=== PATIENT | male | born 1945 | race Caucasian/White ===

== ENCOUNTER 2016-08-22 10:39 | Emergency (ER) | payer OTHER ==
[~2016-08-22] VITALS: Ht 172.7 cm; Wt 71.4 kg
[~2016-08-22 10:39] MED LIST: ASPEC81 PO; ATOR-26 PO; CICL160A PO; CLR10 PO; CMD5 PO; CRDCD120 PO; FLNIN; IMD/2 PO; LVQ500 PO; OXGN; SALI0.6510; SYN75 PO; TRN400 PO; VNTHFA/IN INH; ZNTT/150 PO
[2016-08-22 10:46] VITALS: TEMP 36.5; Ht 172.7 cm; Wt 71.4 kg
[2016-08-22 10:49] VITALS: O2SAT 96
[2016-08-22] MEDS ORDERED: SODIUM CHLORIDE 0.9% 500ML 500 ML IV STA ×2 (10:50→13:13)
--- NOTE | 2016-08-22 11:32 | DIAGNOSTIC IMAGING REPORT ---
SINGLE VIEW CHEST CLINICAL HISTORY: Generalized weakness. FINDINGS: 2 AP, portable, upright chest radiographs are compared to chest x-ray dated 07/28/2016 and correlated with chest CT dated 10/18/2010. A catheter fragment projects over the left subclavian vein. This is unchanged from 2010. The heart is enlarged and there is atherosclerotic calcification of the thoracic aorta. The pulmonary vasculature is noncongested. Enlargement the central pulmonary arteries suggests pulmonary artery hypertension. Emphysema and chronic interstitial thickening are similar to previous. An accessory azygous fissure is incidentally noted. No airspace consolidation or large pleural effusion is identified. No pneumothorax is seen. The skeletal structures are osteopenic. The bony thorax is grossly intact. IMPRESSION: 1. Cardiomegaly and emphysema. There is no radiographic evidence of congestive failure. 2. There is no airspace consolidation typical for pneumonia. 3. A catheter fragment projects over the left subclavian vein. This is unchanged from 2010. Clinical correlation will be required. Electronically signed by: Fidel Stevens M.D. 08/22/2016 11:30 AM Dictated Date/Time: 08/22/2016 11:27 AM
[2016-08-22 11:48] LABS: BASO % 0.1 %; BASO ABS # 0.01 K/uL (0-0.2); COMPLETE YES; EOS % 0.1 %; HEMATOCRIT 39.8 % (42-52); IG% 0.6 %; LYMPH % 4.6 %; MEAN CELL VOLUME 90.7 fL (80-100); MEAN CORPUSCULAR HEMOGLOBIN 30.1 pg (25-34); MEAN CORPUSCULAR HGB CONC 33.2 g/dl (32-36); MEAN PLATELET VOLUME 10.1 fL (7.4-10.4); MONO % 6.1 %; NEUT % 88.5 %; PLATELET COUNT 308 K/uL (130-400); RED BLOOD COUNT 4.39 M/uL (4.7-6.1); WHITE BLOOD COUNT 10.94 K/uL (4.8-10.8)
[2016-08-22 11:51] LABS: ALT/SGPT 66 U/L (12-78); BLOOD UREA NITROGEN 14 mg/dl (7-18); BUN/CREATININE RATIO 15.4 (10-20); CALCIUM 8.4 mg/dl (8.5-10.1); CARBON DIOXIDE 29 mmol/L (21-32); CHLORIDE 103 mmol/L (98-107); CREATININE 0.93 mg/dl (0.60-1.40); GLUCOSE 212 mg/dl (70-99); POTASSIUM 3.9 mmol/L (3.5-5.1); SODIUM 140 mmol/L (136-145)
--- NOTE | 2016-08-22 11:51 | DIAGNOSTIC IMAGING REPORT ---
CT SCAN OF THE BRAIN WITHOUT IV CONTRAST CLINICAL HISTORY: Generalized weakness. COMPARISON STUDY: No priors. TECHNIQUE: Unenhanced axial CT scan of the brain is performed from the vertex to the skull base. Automated dose control exposure was utilized. CT DOSE: 537.48 mGy.cm FINDINGS: Brain parenchyma: There is minimal subcortical and periventricular microangiopathic disease. The brain parenchyma is otherwise normal in appearance. There is no hemorrhage, mass effect, or evidence of acute territorial ischemia by CT criteria. Arellano-white matter is preserved. No extra-axial fluid collection is seen. Ventricles, sulci, cisterns: Normal in configuration. Intracranial vasculature: There is atherosclerotic calcification of the cavernous carotid arteries. Calvarium: Unremarkable. Sinuses and mastoids: The visualized paranasal sinuses are clear. The mastoid air cells are well pneumatized. Orbits: The bony orbits are grossly intact. IMPRESSION: There is no hemorrhage, mass effect, or evidence of acute territorial ischemia by CT criteria. Electronically signed by: Fidel Stevens M.D. 08/22/2016 11:49 AM Dictated Date/Time: 08/22/2016 11:47 AM
[2016-08-22 11:54] LABS: ALKALINE PHOSPHATASE 139 U/L (45-117); AST/SGOT 20 U/L (15-37)
[2016-08-22] MEDS ORDERED: SALI0.657 NAE (11:56)
[2016-08-22] MEDS ORDERED: AMOX1TAB42 PO (11:56)
[2016-08-22] MEDS ORDERED: WARF5TAB7 PO (11:56)
[2016-08-22] MEDS ORDERED: ONDA4TAB46 PO (11:56)
[2016-08-22] MEDS ORDERED: PRED20TA PO (11:56)
[2016-08-22] MEDS ORDERED: ACLI1AER3 INH (11:56)
[2016-08-22] MEDS ORDERED: CLOP1TAB15 PO (11:56)
[2016-08-22] MEDS ORDERED: DILT120C68 PO ×2 (11:56)
[2016-08-22 12:28] LABS: URINE APPEARANCE CLOUDY (CLEAR); URINE BILIRUBIN NEG (NEG); URINE COLOR YELLOW; URINE EPITHELIAL CELL AUTO 20-30 /lpf (0-5); URINE NITRITE NEG (NEG); URINE PH 7.5 (4.5-7.5); URINE SPECIFIC GRAVITY 1.011 (1.000-1.030); UROBILINOGEN NEG (NEG)
[2016-08-22 12:49] LABS: MANUAL MICROSCOPIC REQUIRED? NO; REVIEW REQ? YES
[2016-08-22 13:03] LABS: URINE MUCUS PRESENT (NONE PRSENT); URINE PATH CASTS 0-3 GRANULAR CASTS /lpf (0)
[2016-08-22 15:12] VITALS: BP 105/65; PULSE 72; O2SAT 99
--- NOTE | 2016-08-22 16:50 | EMERGENCY ROOM VISIT NOTE ---
History Report prepared by Johnny: Hannah Mendoza Under the Supervision of: Dr. Alexander Dumont D.O. 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 The patient came to the ED via ambulance from the correction and was given 250 ml of fluid en route. EMS was called due to a suspected cardiac arrest. The nurses in the correction noticed that the patient was bradycardic and hypotensive. Per EMS, the patient did not have any complaints upon their arrival. EMS also reports that the patient has chronic COPD. The patient wears 2 L of nasal cannula oxygen while at the correction and he states that he uses it about 85% of the time. The patient states that he felt lightheaded this morning when he was up and walking around. He states that this is not the first time that he has experienced lightheadedness and that the lightheadedness typically occurs whenever he is not using his nasal cannula oxygen. The patient adds that his blood pressure has been fluctuating over the past week, but has never been as low as it was today. He is also experiencing a productive cough that started 1.5 weeks ago. He denies chest pain, shortness of breath, and any lightheadedness currently. He also denies diarrhea. The patient is on Coumadin for atrial fibrillation. He is unsure of if any of his medications have changed recently and according to records sent over from the correction he is on 120 mg of Cardizem. 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 A total of 10 systems reviewed and were otherwise negative. Past Medical & Surgical Medical Problems: (1) Asthma (2) Atrial flutter with rapid ventricular response (3) HTN (hypertension) Family History No pertinent family history Social History Smoking Status: Current Every Day Smoker Drug Use: none Marital Status: single Housing Status: other Occupation Status: other Current/Historical Medications Scheduled Aclidinium [place] (Tudorza Pressair), 1 PUFF INH BID Amoxicillin & Pot Clavulanate (Amoxicillin/Clavulanate P), 1 TAB PO BID Atorvastatin (Lipitor), 80 MG PO DAILY Ciclesonide (Alvesco), 1 PUFF PO BID Clopidogrel (Plavix), 75 MG PO DAILY Diltiazem Hcl Ext Rel (Tiazac), 120 MG PO DAILY Diltiazem Hcl Ext Rel (Tiazac), 120 MG PO BID Levothyroxine Sodium (Synthroid), 225 MCG PO DAILYBB Loperamide Hcl (Imodium), 2 MG PO BID Loratadine (Claritin), 10 MG PO DAILY Ondansetron Hcl (Zofran), 4 MG PO QID Pentoxifylline (Pentoxifylline ER), 400 MG PO TID Prednisone (Prednisone), 20 MG PO DAILY Saline (Parker), 1 SPRY GAETANO QID Warfarin Sod (Jantoven), 5 MG PO HS Scheduled PRN Albuterol Hfa (Ventolin Hfa), 2 PUFFS INH for UNDECIDED Ranitidine (Zantac), 150 MG PO BID PRN for UNDECIDED Allergies Coded Allergies: Aspirin (Verified Allergy, Unknown, 07/28/16) Procaine (Verified Allergy, Unknown, 07/28/16) Rosuvastatin (Verified Allergy, Unknown, UNKNOWN, 07/28/16) Physical Exam Vital Signs Date Time Temp Pulse Resp B/P Pulse Ox O2 Delivery O2 Flow Rate FiO2 08/22/16 15:12 72 18 105/65 99 08/22/16 14:20 97 18 112/63 95 Nasal Cannula 2.0 08/22/16 13:01 71 18 96/54 99 Nasal Cannula 2.0 08/22/16 11:44 78 18 96/54 99 Nasal Cannula 2.0 08/22/16 11:41 73 18 87/53 98 Nasal Cannula 2.0 08/22/16 11:40 79 18 105/60 99 Nasal Cannula 2.0 08/22/16 11:11 74 08/22/16 10:49 96 Nasal Cannula 2.0 08/22/16 10:46 36.5 81 20 107/54 96 Nasal Cannula 2.0 08/22/16 10:39 96 Nasal Cannula 2.0 Physical Exam GENERAL: alert, sitting up in bed, well appearing, well nourished, no distress, non-toxic EYE EXAM: normal conjunctiva, PERRL and EOM's intact OROPHARYNX: no exudate, no erythema, lips, buccal mucosa, and tongue normal and mucous membranes are moist NECK: supple, no nuchal rigidity, no adenopathy, non-tender LUNGS: Clear to auscultation. Normal chest wall mechanics HEART: no murmurs, S1 normal and S2 normal ABDOMEN: abdomen soft, non-tender, normo-active bowel sounds, no masses, no rebound or guarding. BACK: Back is symmetrical on inspection and there is no deformity, no midline tenderness, no CVA tenderness. SKIN: no rashes and no bruising UPPER EXTREMITIES: upper extremities are grossly normal. LOWER EXTREMITIES: No pitting edema. NEURO EXAM: Normal sensorium, cranial nerves II-XII intact, normal speech, no weakness of arms, no weakness of legs. No drift. Finger to nose intact. Gross sensation intact. Medical Decision & Procedures ER Provider Diagnostic Interpretation: Xray results per the radiologist and my interpretation. Other results have been interpreted by the radiologist and reviewed by me. SINGLE VIEW CHEST IMPRESSION: 1. Cardiomegaly and emphysema. There is no radiographic evidence of congestive failure. 2. There is no airspace consolidation typical for pneumonia. 3. A catheter fragment projects over the left subclavian vein. This is unchanged from 2010. Clinical correlation will be required. Electronically signed by: Fidel Stevens M.D. 08/22/2016 11:30 AM Dictated Date/Time: 08/22/2016 11:[address] SCAN OF THE BRAIN WITHOUT IV CONTRAST IMPRESSION: There is no hemorrhage, mass effect, or evidence of acute territorial ischemia by CT criteria. Electronically signed by: Fidel Stevens M.D. 08/22/2016 11:49 AM Dictated Date/Time: 08/22/2016 11:47 AM Laboratory Results 08/22/16 11:00 Red Blood Count 4.39, Mean Corpuscular Volume 90.7, Mean Corpuscular Hemoglobin 30.1, Mean Corpuscular Hemoglobin Concent 33.2, Mean Platelet Volume 10.1, Neutrophils (%) (Auto) 88.5, Lymphocytes (%) (Auto) 4.6, Monocytes (%) (Auto) 6.1, Eosinophils (%) (Auto) 0.1, Basophils (%) (Auto) 0.1, Neutrophils # (Auto) 9.68, Lymphocytes # (Auto) 0.50, Monocytes # (Auto) 0.67, Eosinophils # (Auto) 0.01, Basophils # (Auto) 0.01 08/22/16 11:00 Test 08/22/16 11:00 08/22/16 12:00 White Blood Count 10.94 K/uL (4.8-10.8) Red Blood Count 4.39 M/uL (4.7-6.1) Hemoglobin 13.2 g/dL (14.0-18.0) Hematocrit 39.8 % (42-52) Mean Corpuscular Volume 90.7 fL (80-100) Mean Corpuscular Hemoglobin 30.1 pg (25-34) Mean Corpuscular Hemoglobin Concent 33.2 g/dl (32-36) Platelet Count 308 K/uL (130-400) Mean Platelet Volume 10.1 fL (7.4-10.4) Neutrophils (%) (Auto) 88.5 % Lymphocytes (%) (Auto) 4.6 % Monocytes (%) (Auto) 6.1 % Eosinophils (%) (Auto) 0.1 % Basophils (%) (Auto) 0.1 % Neutrophils # (Auto) 9.68 K/uL (1.4-6.5) Lymphocytes # (Auto) 0.50 K/uL (1.2-3.4) Monocytes # (Auto) 0.67 K/uL (0.11-0.59) Eosinophils # (Auto) 0.01 K/uL (0-0.5) Basophils # (Auto) 0.01 K/uL (0-0.2) RDW Standard Deviation 48.7 fL (36.4-46.3) RDW Coefficient of Variation 14.5 % (11.5-14.5) Immature Granulocyte % (Auto) 0.6 % Immature Granulocyte # (Auto) 0.07 K/uL (0.00-0.02) Anion Gap 8.0 mmol/L (3-11) Est Creatinine Clear Calc Drug Dose 73.5 ml/min Estimated GFR () 97.4 Estimated GFR (Non- 84.1 BUN/Creatinine Ratio 15.4 (10-20) Bedside Glucose 211 mg/dl (70-99) Calcium Level 8.4 mg/dl (8.5-10.1) Total Bilirubin 0.3 mg/dl (0.2-1) Direct Bilirubin < 0.1 mg/dl (0-0.2) Aspartate Amino Transf (AST/SGOT) 20 U/L (15-37) Alanine Aminotransferase (ALT/SGPT) 66 U/L (12-78) Alkaline Phosphatase 139 U/L (45-117) Troponin I < 0.015 ng/ml (0-0.045) Total Protein 5.7 gm/dl (6.4-8.2) Albumin 2.5 gm/dl (3.4-5.0) Urine Color YELLOW Urine Appearance CLOUDY (CLEAR) Urine pH 7.5 (4.5-7.5) Urine Specific [place] 1.011 (1.000-1.030) Urine Protein NEG (NEG) Urine Glucose (UA) 2+ (NEG) Urine Ketones NEG (NEG) Urine Occult Blood NEG (NEG) Urine Nitrite NEG (NEG) Urine Bilirubin NEG (NEG) Urine Urobilinogen NEG (NEG) Urine Leukocyte Esterase NEG (NEG) Urine WBC (Auto) 1-5 /hpf (0-5) Urine RBC (Auto) 0-4 /hpf (0-4) Urine Hyaline Casts (Auto) 5-10 /lpf (0-5) Urine Epithelial Cells (Auto) 20-30 /lpf (0-5) Urine Bacteria (Auto) NEG (NEG) Urine Crystals AMORPHOUS SEDIMENT (NONE Urine Pathogenic Casts 0-3 GRANULAR CASTS /lpf (0) Urine Mucus PRESENT (NONE PRSENT) Laboratory results per my review. Medications Administered Medications (Trade) Dose Ordered Sig/Malcolm Route Start Time Stop Time Status Last Admin Dose Admin Sodium Chloride 500 ml @ 999 mls/hr Q31M STAT IV 08/22/16 10:50 08/22/16 11:20 DC 08/22/16 10:50 999 MLS/HR Sodium Chloride (Nss 500ml) 500 ml @ 999 mls/hr Q31M STAT IV 08/22/16 13:13 08/22/16 13:43 DC 08/22/16 13:13 999 MLS/HR ECG Indication: SOB/dyspnea Rate (beats per minute): 78 Rhythm: sinus with SA Findings: Q waves (Septal), ST elevation (slight in lead II), other (normal axis) Comparison ECG Date: 07/30/2016 Change: Atrial flutter has resolved EKG from correction earlier today showed a sinus rhythm. ED Course ED COURSE: Vital signs were reviewed and showed normal. The patients medical record was reviewed The above diagnostic studies were performed and reviewed. ED treatments and interventions as stated above. 1039: The patient was evaluated in room C6. A complete history and physical examination was performed. 1050: Ordered Sodium Chloride 500 ml @ 999 mls/hr IV 1108: I reassessed the patient and let him know that we are waiting on his test results yet. 1313: Ordered Sodium Chloride 500 ml @ 999 mls/hr IV 1413: I reassessed and updated the patient. 1433: I discussed the patient's case with the medical staff from [facility]. They said that they sent the patient over for hypotension and that his blood pressure is typically in the 90s. 1436: Upon reevaluation, the patient is doing well. I discussed my findings with the patient and he understands and agrees with the treatment plan. Based on the patients age, coexisting illnesses, exam and lab findings the decision to treat as an outpatient was made. The patient remained stable while under my care. The patient appeared well at the time of discharge. Medical Decision Differential diagnosis includes etiologies such as benign positional vertigo, dehydration, hypovolemia, anemia, tumor, infection, hypoglycemia, electrolyte abnormalities, cardiac sources, intracerebral event, toxicologic, neurologic, as well as others were entertained. Patient is a 70-year-old male prisoner who presents the ER for lightheadedness. He notes they normally gets this in the morning when his blood pressure slightly on the low side. Notes his blood pressures in the morning or normally systolically in the 90s. He was ambulate without his oxygen although is supposed to use it all the time. He normally wears 2 L nasal cannula. He notes that when he doesn't wear the oxygen he does become a little lightheaded and feels exactly the same way as he did this morning. Nursing staff took his blood pressure at this time and was systolically 30s over 20s per nursing staff. He was also in A. fib. Heart rate at that time was in the 50s. Upon review of his EKG performed at that time it was a normal sinus rhythm. There is no signs of A. fib. Heart rate was in the 50s. I do find it hard to believe that she could obtain a systolic pressure of 30 over a diastolic of 20. I do not believe that this is a real pressure. Pressures here were systolically 90s to 120s. He is completely a symptomatically. No sniffing anemia or leukocytosis. BMP along with LFTs, bilirubin and troponin are unremarkable. UA was negative. CT head was negative. Chest x-ray was unremarkable. EKG was nondiagnostic and since he is having no chest pain or shortness of breath and do not believe that this is the cause of the symptoms. Patient was updated bedside. I recommended holding Cardizem and or decreasing the dosing. I discussed this with the nurse on the unit. Patient was discharged follow-up with correction doctor as he is completely a symptomatically. Discussed with Pt concerning signs and symptoms to watch out for. Pt was instructed to follow up with their PCP and discussed with the patient their option to return to the ED at anytime for persistent or worsening symptoms. The appropriate anticipatory guidance and out-patient management, including indications for return to the emergency department, were explained at length to the patient and understood. Consults Time Called: 1425 Consulting Physician: [facility] medical staff Returned Call: 1433 I discussed the patient's case with the medical staff from [facility]. They said that they sent the patient over for hypotension and that his blood pressure is typically in the 90s. Impression Primary Impression: Dizzy Additional Impression: Hypotension Scribe Attestation The scribe's documentation has been prepared under my direction and personally reviewed by me in its entirety. I confirm that the note above accurately reflects all work, treatment, procedures, and medical decision making performed by me. Departure Information Dispostion Home / Self-Care (Fdc) Referrals Frances DOHERTY (PCP) Forms HOME CARE DOCUMENTATION FORM, IMPORTANT VISIT INFORMATION, WORK / SCHOOL INSTRUCTIONS Patient Instructions My [facility] Additional Instructions Please follow up with your primary care doctor with in the next 24 hours. Any worsening of your symptoms, please return to the ED immediately. This includes passing out, chest pain, shortness of breath, or any other concerning signs or symptoms from your stand point. Please talk to the physician electronics inspector at the correction as she will likely benefit from decreasing your Cardizem dosing. Problem Qualifiers Additional Impression: Hypotension Hypotension type: unspecified hypotension type Qualified Codes: I95.9 - Hypotension, unspecified
[2016-09-05] MEDS ORDERED: BTP80 PO (10:59)
[2016-10-18] MEDS ORDERED: GUAI1TAB27 PO (03:36)
[2016-11-27] MEDS ORDERED: ENOX60IN SQ (08:46)
[2016-12-06] MEDS ORDERED: BND25 PO (03:05)
[2016-12-16] MEDS ORDERED: LORA-741 PO (09:33)
[2016-12-16] MEDS ORDERED: SCOP1DIS14 TD (09:33)
[2016-12-16] MEDS ORDERED: RXNS10 PO (09:33)
== END 2016-08-22 15:13 | disposition home or self-care (01) ==
LOC: EDBD 10:39 → C.ED 10:41 → C.EDC 15:13
DX: I95.9 Hypotension, unspecified (principal); F17.200 Nicotine dependence, unspecified, uncomplicated; J45.909 Unspecified asthma, uncomplicated; I10 Essential (primary) hypertension

== ENCOUNTER 2016-09-03 09:07 | Inpatient (IN) | payer OTHER ==
[~2016-09-03] VITALS: Ht 172.7 cm; Wt 70.0 kg
[~2016-09-03 09:07] MED LIST changes: +ACLI1AER3 INH; +AMOX1TAB42 PO; -ASPEC81 PO; +CLOP1TAB15 PO; -CMD5 PO; -CRDCD120 PO; +DILT120C68 PO; -FLNIN; -LVQ500 PO; +ONDA4TAB46 PO; -OXGN; +PRED20TA PO; -SALI0.6510; +SALI0.657 NAE; +WARF5TAB7 PO
[2016-09-03] MEDS ORDERED: DILTIAZEM BOLUS / DRIP IV STA (09:26)
[2016-09-03] MEDS ORDERED: SODIUM CHLORIDE 0.9% 1000ML 1,000 ML IV STA (09:26)
--- NOTE | 2016-09-03 09:30 | EMERGENCY ROOM VISIT NOTE ---
History Report prepared by Johnny: Jasno Kaur Under the Supervision of: Dr. Josefa Pleitez M.D. First contact with patient: 09:15 Stated Complaint: TACHYCARDIA History of Present Illness The patient is a 70 year old male who presents to the Emergency Room with complaints of an episode of tachycardia that occurred prior to arrival today. He is coming from the [facility] facility. Per the nursing staff, the patient has a history of atrial fibrillation. The patient was taking medications for the atrial fibrillation, but he had to stop taking the medications a few weeks ago due to his blood pressure being in the 80s and 90s. Per the patient, he began to feel lightheaded this morning. He says that the cool air made his lightheadedness better. Per the nursing staff, the patient's heart rate went down after being in the cool air. The patient denies any loss of consciousness. Source of History: patient, nursing staff Onset: Prior to arrival today Position: other (heart - tachycardia) Timing: other (episode) Modifying Factors (Relieving): other (cool air) Associated Symptoms: No LOC Note: Associated symptoms: Lightheaded prior to arrival today. Review of Systems See HPI for pertinent positives & negatives. A total of 10 systems reviewed and were otherwise negative. Past Medical & Surgical Medical Problems: (1) Afib (2) Anticoagulation goal of INR 2 to 3 (3) Atrial flutter with rapid ventricular response (4) COPD (chronic obstructive pulmonary disease) (5) Hypothyroidism (6) PVD (peripheral vascular disease) Family History No pertinent family history Social History Smoking Status: Current Every Day Smoker Drug Use: none Marital Status: single Housing Status: other Occupation Status: other Current/Historical Medications Scheduled Aclidinium Calvin (Tudorza Pressair), 1 PUFF INH BID Ciclesonide (Alvesco), 1 PUFF PO BID Clopidogrel (Plavix), 75 MG PO DAILY Diltiazem Hcl Coated Beads (Cardizem Cd), 1 CAP PO BID Levothyroxine Sodium (Synthroid), 225 MCG PO DAILYBB Loperamide Hcl (Imodium), 2 MG PO BID Loratadine (Claritin), 10 MG PO DAILY Nortriptyline (Pamelor), 10 MG PO HS Oxygen (Oxygen), 2 LITERS NA PRN Pentoxifylline (Pentoxifylline ER), 400 MG PO TID Warfarin Sodium (Coumadin), 6 MG PO HS Scheduled PRN Albuterol Hfa (Ventolin Hfa), 2 PUFFS INH for UNDECIDED Ranitidine (Zantac), 150 MG PO BID PRN for UNDECIDED Allergies Coded Allergies: Aspirin (Verified Allergy, Unknown, 09/03/16) Procaine (Verified Allergy, Unknown, 09/03/16) Rosuvastatin (Verified Allergy, Unknown, UNKNOWN, 09/03/16) Physical Exam Vital Signs Date Time Temp Pulse Resp B/P Pulse Ox O2 Delivery O2 Flow Rate FiO2 09/03/16 10:45 155 20 101/69 97 Nasal Cannula 2.0 09/03/16 10:14 159 29 96/65 98 Nasal Cannula 2.0 09/03/16 09:57 157 28 89/76 97 Nasal Cannula 2.0 09/03/16 09:30 36.5 155 16 85/63 97 Room Air 09/03/16 09:24 155 09/03/16 09:16 170 Physical Exam CONSTITUTIONAL: Mild distress. HEENT: No icterus, moist mucous membranes NECK: No meningismus, trachea is midline. CARDIOVASCULAR: Irregular tachycardic rate. RESPIRATORY: Unlabored breathing. Clear to auscultation. GASTROINTESTINAL: Non-tender GENITOURINARY: No flank tenderness MUSCULOSKELETAL: Full range of motion RECTAL: No blood noticed, no stool in rectum. Heme negative. NEUROLOGIC: No acute gross focal deficits. PSYCHIATRIC: Normal affect SKIN: Normal for ethnicity. Medical Decision & Procedures ER Provider Diagnostic Interpretation: X-ray results as stated below per interpretation by me and the radiologist. CHEST ONE VIEW PORTABLE CLINICAL HISTORY: Atrial fibrillation with rapid response. Tachycardia. COMPARISON STUDY: 08/22/2016 FINDINGS: The cardiac and mediastinal contours remain stable. A left subclavian central venous catheter fragment remains unchanged in position. There is an azygos fissure. There is radiographic evidence of emphysema. There is mild elevation of the interstitium, finding which is felt to be chronic. There is no lobar consolidation. There are no significant pleural effusions. IMPRESSION: 1. Stable mild chronic interstitial thickening 2. No evidence of acute parenchymal consolidation Electronically signed by: Aramis Lassiter M.D. 09/03/2016 9:49 AM Dictated Date/Time: 09/03/2016 9:46 AM Laboratory Results 09/03/16 09:25 Red Blood Count 4.60, Mean Corpuscular Volume 88.7, Mean Corpuscular Hemoglobin 29.3, Mean Corpuscular Hemoglobin Concent 33.1, Mean Platelet Volume 10.0, Neutrophils (%) (Auto) 85.6, Lymphocytes (%) (Auto) 7.0, Monocytes (%) (Auto) 6.6, Eosinophils (%) (Auto) 0.2, Basophils (%) (Auto) 0.1, Neutrophils # (Auto) 12.68, Lymphocytes # (Auto) 1.03, Monocytes # (Auto) 0.97, Eosinophils # (Auto) 0.03, Basophils # (Auto) 0.01 09/03/16 09:25 Test 09/03/16 09:25 09/03/16 09:26 White Blood Count 14.79 K/uL (4.8-10.8) Red Blood Count 4.60 M/uL (4.7-6.1) Hemoglobin 13.5 g/dL (14.0-18.0) Hematocrit 40.8 % (42-52) Mean Corpuscular Volume 88.7 fL (80-100) Mean Corpuscular Hemoglobin 29.3 pg (25-34) Mean Corpuscular Hemoglobin Concent 33.1 g/dl (32-36) Platelet Count 279 K/uL (130-400) Mean Platelet Volume 10.0 fL (7.4-10.4) Neutrophils (%) (Auto) 85.6 % Lymphocytes (%) (Auto) 7.0 % Monocytes (%) (Auto) 6.6 % Eosinophils (%) (Auto) 0.2 % Basophils (%) (Auto) 0.1 % Neutrophils # (Auto) 12.68 K/uL (1.4-6.5) Lymphocytes # (Auto) 1.03 K/uL (1.2-3.4) Monocytes # (Auto) 0.97 K/uL (0.11-0.59) Eosinophils # (Auto) 0.03 K/uL (0-0.5) Basophils # (Auto) 0.01 K/uL (0-0.2) RDW Standard Deviation 47.9 fL (36.4-46.3) RDW Coefficient of Variation 14.8 % (11.5-14.5) Immature Granulocyte % (Auto) 0.5 % Immature Granulocyte # (Auto) 0.07 K/uL (0.00-0.02) Prothrombin Time 29.6 SECONDS (9.0-12.0) Prothromb Time International Ratio 2.7 (0.9-1.1) Activated Partial Thromboplast Time 55.9 SECONDS (21.0-31.0) Partial Thromboplastin Ratio 2.2 Anion Gap 11.0 mmol/L (3-11) Est Creatinine Clear Calc Drug Dose 79.5 ml/min Estimated GFR () 103.3 Estimated GFR (Non- 89.1 BUN/Creatinine Ratio 17.2 (10-20) Calcium Level 8.9 mg/dl (8.5-10.1) Magnesium Level 2.1 mg/dl (1.8-2.4) Troponin I < 0.015 ng/ml (0-0.045) Procalcitonin < 0.05 ng/mL (0-0.5) Thyroid Stimulating Hormone (TSH) 6.530 uIu/ml (0.300-4.500) Free Thyroxine 1.66 ng/dl (0.80-1.60) Free Triiodothyronine 2.79 pg/ml (2.30-4.20) Labs reviewed by ED physician. Medications Administered Medications (Trade) Dose Ordered Sig/Malcolm Route Start Time Stop Time Status Last Admin Dose Admin Sodium Chloride 1,000 ml @ 0 mls/hr Q0M STAT IV 09/03/16 09:26 09/03/16 09:28 DC 09/03/16 09:52 999 MLS/HR Diltiazem HCl/ Dextrose (Cardizem Inj/D5 100ml) 125 ml @ 5 mls/hr Q24H PRN IV 09/03/16 09:45 09/03/16 11:56 DC 09/03/16 10:39 8 MLS/HR ECG Indication: tachycardia Rate (beats per minute): 150 Rhythm: other (irregular tachycardia) Findings: other (normal axis, nonspecific-ST findings) ED Course 0916: Past medical records reviewed. The patient was evaluated in room A2. A complete history and physical examination was performed. 0926: Ordered Cardizem Bolus/Drip 1 ea IV, NSS 1000 ml @ 0 mls/hr Wide Open IV. 0945: Ordered Diltiazem HCl 125 mg/Dextrose 125 ml @ 5 mls/hr Protocol IV PRN. 1039: I reevaluated the patient and he is resting comfortably. The patient verbally expressed understanding and agreement of the treatment plan. The patient will be evaluated for further treatment. 1047: I discussed the patient with Dia Sullivan - she will evaluate the patient for further treatment. Medical Decision Differential diagnoses include: rapid atrial fibrillation, GI bleed, myocardial infarction. 62 presented to the emergency Department from the [facility] facility for evaluation of tachycardia. He has a history of atrial fibrillation and has reportedly been in his otherwise normal state of health. However, his heart rate is roughly 150 bpm on arrival to the emergency department and he is hypotensive blood pressure 90/50. He does not appear in any distress, however. Rectal exam heme negative on Coumadin. Initially, normal saline bolus and Cardizem drip without bolus initiated. However, patient's heart rate failed to decrease despite titrating the Cardizem drip upward and blood pressure while initially increasing to a systolic of 100 eventually began to descend again to a systolic of roughly 85. Therefore, digoxin 0.5 mg IV ordered and admission arranged with hospital service. Patient otherwise appeared well throughout emergency room course and hemodynamically stable although tachycardic and mildly hypotensive. Consults Time Called: 1040 Consulting Physician: Dia Sullivan Returned Call: 1049 I discussed the patient with Dia Sullivan - she will evaluate the patient for further treatment. Impression Primary Impression: Rapid atrial fibrillation Critical Care Critical Care time 30 mins Scribe Attestation The scribe's documentation has been prepared under my direction and personally reviewed by me in its entirety. I confirm that the note above accurately reflects all work, treatment, procedures, and medical decision making performed by me. Departure Information Dispostion Being Evaluated By Hospitalist Frances Castaneda (PCP)
[2016-09-03] MEDS ORDERED: NORT10CA2 PO (09:46)
[2016-09-03] MEDS ORDERED: WARF6TAB PO (09:46)
[2016-09-03] MEDS ORDERED: DILT120C51 PO (09:46)
--- NOTE | 2016-09-03 09:51 | DIAGNOSTIC IMAGING REPORT ---
CHEST ONE VIEW PORTABLE CLINICAL HISTORY: Atrial fibrillation with rapid response. Tachycardia. COMPARISON STUDY: 08/22/2016 FINDINGS: The cardiac and mediastinal contours remain stable. A left subclavian central venous catheter fragment remains unchanged in position. There is an azygos fissure. There is radiographic evidence of emphysema. There is mild elevation of the interstitium, finding which is felt to be chronic. There is no lobar consolidation. There are no significant pleural effusions. IMPRESSION: 1. Stable mild chronic interstitial thickening 2. No evidence of acute parenchymal consolidation Electronically signed by: Aramis Lassiter M.D. 09/03/2016 9:49 AM Dictated Date/Time: 09/03/2016 9:46 AM
[2016-09-03] MEDS: DILTIAZEM HCL INJ 125 MG in DEXTROSE 5% 100ML IV PRN ×2 (09:53→10:39)
[2016-09-03 10:13] LABS: BASO % 0.1 %; BASO ABS # 0.01 K/uL (0-0.2); COMPLETE YES; EOS % 0.2 %; HEMATOCRIT 40.8 % (42-52); IG% 0.5 %; LYMPH ABS # 1.03 K/uL (1.2-3.4); MEAN CELL VOLUME 88.7 fL (80-100); MEAN CORPUSCULAR HEMOGLOBIN 29.3 pg (25-34); MEAN CORPUSCULAR HGB CONC 33.1 g/dl (32-36); MONO % 6.6 %; NEUT % 85.6 %; PLATELET COUNT 279 K/uL (130-400); WHITE BLOOD COUNT 14.79 K/uL (4.8-10.8)
[2016-09-03 10:20] LABS: BLOOD UREA NITROGEN 15 mg/dl (7-18); BUN/CREATININE RATIO 17.2 (10-20); CALCIUM 8.9 mg/dl (8.5-10.1); CARBON DIOXIDE 23 mmol/L (21-32); CHLORIDE 102 mmol/L (98-107); CREATININE 0.86 mg/dl (0.60-1.40); GLUCOSE 159 mg/dl (70-99); POTASSIUM 3.9 mmol/L (3.5-5.1); SODIUM 136 mmol/L (136-145)
[2016-09-03 10:35] LABS: INR 2.7 (0.9-1.1); PARTIAL THROMBOPLASTIN RATIO 2.2; PROTHROMBIN TIME (PATIENT) 29.6 SECONDS (9.0-12.0)
[2016-09-03 11:35] VITALS: Ht 172.7 cm; Wt 70.0 kg
[2016-09-03] MEDS ORDERED: NITROGLYCERIN 0.4 MG SL PER TAB CHARGE SL PRN (11:45)
[2016-09-03] MEDS ORDERED: SODIUM CHLORIDE 0.9% 1000ML 1,000 ML IV SCH (11:45)
[2016-09-03] MEDS ORDERED: ACETAMINOPHEN 325 MG TAB PO PRN (11:45)
[2016-09-03] MEDS ORDERED: DIGOXIN 0.125 MG TAB PO ONE (11:45)
[2016-09-03] MEDS ORDERED: DIGOXIN IV 250 MCG in SYRINGE 9 ML IV ONE (11:45)
[2016-09-03] MEDS ORDERED: ONDANSETRON INJ 2 MG/ML 2 ML VIAL IV PRN (11:45)
[2016-09-03] MEDS ORDERED: DILTIAZEM BOLUS / DRIP IV PRN (11:45)
[2016-09-03] MEDS ORDERED: DIGOXIN INJ 500 MCG/2 ML AMP IV ONE (12:00)
--- NOTE | 2016-09-03 12:03 | History and Physical ---
History & Physical Date & Time of Service: Sep 03, 2016 at 11:44 Chief Complaint: Tachycardia Primary Care Physician: Frances DOHERTY History of Present Illness Source: patient, hospital records, other (intermediate records ) Patient seen and examined. 70 year old male with PMHx of Afib on Coumadin, COPD , hypothyroidism, PAD, and HLD presents to the ED from [facility] with tachycardia. Patient reports he feels relatively well. Patient has been having low BP the last several days and his Cardizem has been held. This morning the nurse at intermediate took his vital signs and his HR was in the 150s. BP was systolically in the high 80s. Patient reports he feels lightheaded occasionally but otherwise denies any other issues. He denies fevers, chills, URI symptoms, chest pain, SOB , palpitations, nausea, vomiting, diarrhea, dysuria, calf pain and edema. He reports chronic oxygen use. He states the intermediate takes care of his medications. Patient was admitted in July for new onset Afib/flutter and converted to NSR prior to discharge. In the ED patient is tachycardic to the 150s. BP is in the 90s systolically. HR is in the 150s and is aflutter/fib. TSH is high, as is WBC count is 14K, INR is 2.7. Patient received IVFs and a Cardizem drip is started. He will be admitted for further workup and treatment. Past Medical/Surgical History Medical Problems: (1) Afib Status: Chronic (2) Anticoagulation goal of INR 2 to 3 Status: Chronic (3) Atrial flutter with rapid ventricular response Permanent Comment: now in Normal sinus rhythms Status: Resolved (4) COPD (chronic obstructive pulmonary disease) Status: Chronic (5) Hypothyroidism Status: Chronic (6) PVD (peripheral vascular disease) Status: Chronic Family History No pertinent family history Social History Smoking Status: Former Smoker Alcohol Use: none Drug Use: none Marital Status: single Housing status: other (incarcerated ) Occupational Status: other Immunizations History of Influenza Vaccine: Yes History of Tetanus Vaccine?: Yes History of Pneumococcal: Yes History of Hepatitis B Vaccine: Yes Multi-Drug Resistant Organisms History of MDRO: No Allergies Coded Allergies: Aspirin (Verified Allergy, Unknown, 09/03/16) Procaine (Verified Allergy, Unknown, 09/03/16) Rosuvastatin (Verified Allergy, Unknown, UNKNOWN, 09/03/16) Home Medications Scheduled Aclidinium Justice (Tudorza Pressair), 1 PUFF INH BID Ciclesonide (Alvesco), 1 PUFF PO BID Clopidogrel (Plavix), 75 MG PO DAILY Diltiazem Hcl Coated Beads (Cardizem Cd), 1 CAP PO BID Levothyroxine Sodium (Synthroid), 225 MCG PO DAILYBB Loperamide Hcl (Imodium), 2 MG PO BID Loratadine (Claritin), 10 MG PO DAILY Nortriptyline (Pamelor), 10 MG PO HS Oxygen (Oxygen), 2 LITERS NA PRN Pentoxifylline (Pentoxifylline ER), 400 MG PO TID Warfarin Sodium (Coumadin), 6 MG PO HS Scheduled PRN Albuterol Hfa (Ventolin Hfa), 2 PUFFS INH for UNDECIDED Ranitidine (Zantac), 150 MG PO BID PRN for UNDECIDED Review of Systems See above for pertinent positives & negatives. A total of 10 systems reviewed and were otherwise negative. Physical Exam Vital Signs Date Time Temp Pulse Resp B/P Pulse Ox O2 Delivery O2 Flow Rate FiO2 09/03/16 10:14 159 29 96/65 98 Nasal Cannula 2.0 09/03/16 09:57 157 28 89/76 97 Nasal Cannula 2.0 09/03/16 09:30 36.5 155 16 85/63 97 Room Air 09/03/16 09:24 155 09/03/16 09:16 170 General Appearance: + pertinent finding (Pleasant Wd/WN 70 year old male lying in bed in NAD with guards at bedside ) Head: normocephalic, atraumatic Eyes: PERRL, EOMI, sclerae normal ENT: hearing grossly normal, pharynx normal Neck: supple, no JVD Respiratory/Chest: chest non-tender, lungs clear, normal breath sounds, no respiratory distress, no accessory muscle use Cardiovascular: no edema, no gallop, no JVD, no murmur, normal peripheral pulses, + irregularly irregular (rate 140s ) Abdomen/GI: normal bowel sounds, non tender, soft Back: normal inspection, no muscle spasm Extremities/Musculoskelatal: no calf tenderness, normal capillary refill, no pedal edema Neurologic/Psych: alert, oriented x 3, + pertinent finding (no motor or sensory deficits noted on gross exam ) Skin: normal color, warm/dry, no rash Lymphatic: no adenopathy Diagnostics Laboratory Results Results Past 24 Hours Test 09/03/16 09:25 09/03/16 09:26 09/03/16 11:35 Range/Units White Blood Count 14.79 4.8-10.8 K/uL Red Blood Count 4.60 4.7-6.1 M/uL Hemoglobin 13.5 14.0-18.0 g/dL Hematocrit 40.8 42-52 % Mean Corpuscular Volume 88.7 80-100 fL Mean Corpuscular Hemoglobin 29.3 25-34 pg Mean Corpuscular Hemoglobin Concent 33.1 32-36 g/dl Platelet Count 279 130-400 K/uL Mean Platelet Volume 10.0 7.4-10.4 fL Neutrophils (%) (Auto) 85.6 % Lymphocytes (%) (Auto) 7.0 % Monocytes (%) (Auto) 6.6 % Eosinophils (%) (Auto) 0.2 % Basophils (%) (Auto) 0.1 % Neutrophils # (Auto) 12.68 1.4-6.5 K/uL Lymphocytes # (Auto) 1.03 1.2-3.4 K/uL Monocytes # (Auto) 0.97 0.11-0.59 K/uL Eosinophils # (Auto) 0.03 0-0.5 K/uL Basophils # (Auto) 0.01 0-0.2 K/uL RDW Standard Deviation 47.9 36.4-46.3 fL RDW Coefficient of Variation 14.8 11.5-14.5 % Immature Granulocyte % (Auto) 0.5 % Immature Granulocyte # (Auto) 0.07 0.00-0.02 K/uL Prothrombin Time 29.6 9.0-12.0 SECONDS Prothromb Time International Ratio 2.7 0.9-1.1 Activated Partial Thromboplast Time 55.9 21.0-31.0 SECONDS Partial Thromboplastin Ratio 2.2 Sodium Level 136 136-145 mmol/L Potassium Level 3.9 3.5-5.1 mmol/L Chloride Level 102 98-107 mmol/L Carbon Dioxide Level 23 21-32 mmol/L Anion Gap 11.0 3-11 mmol/L Blood Urea Nitrogen 15 7-18 mg/dl Creatinine 0.86 0.60-1.40 mg/dl Est Creatinine Clear Calc Drug Dose 79.5 ml/min Estimated GFR () 103.3 Estimated GFR (Non- 89.1 BUN/Creatinine Ratio 17.2 10-20 Random Glucose 159 70-99 mg/dl Calcium Level 8.9 8.5-10.1 mg/dl Troponin I < 0.015 0-0.045 ng/ml Thyroid Stimulating Hormone (TSH) 6.530 0.300-4.500 uIu/ml Diagnostic Radiology CXR Per radiologist read: IMPRESSION: 1. Stable mild chronic interstitial thickening 2. No evidence of acute parenchymal consolidation EKG Atrial Flutter 152 BPM QTc 429 Impression Assessment and Plan 70 year old male presents to the ED from intermediate with tachycardia. Patient feels well. Cardizem has been held the last several days for hypotension RECURRENT PAROXYSMAL ATRIAL FIBRILLATION/FLUTTER -Admit to tele -Cardizem drip started for rate control -continue Warfarin, follow INR -hold Pentoxifylline for now - side effect of medication is arrhythmia -Serial Desi, EKGs -Had echo in July with preserved EF and mitral valve calcification -Cardiology consult for further recommendations input appreciated - saw [facility] cardiology last time -AHA diet -Mg, T3, T4 pending -CBC, PRP, Mg daily -rate still elevated Cardizem uptitrated HYPOTENSION -? cause -gentle IVF hydration -monitor in tele -cardiology consult placed LEUKOCYTOSIS -14K, no signs of infection. Afebrile -check blood cultures, UA, procalcitonin -no indication for Abx at this time -follow CBC daily COPD with chronic hypoxia -stable -continue home inhalers, oxygen PVD -continue Plavix -hold Pentoxifylline for now HYPOTHYROIDISM -TSH high -check T3, T4 -continue Synthroid DVT PROPHYLAXIS: Coumadin CODE STATUS: FULL CODE per intermediate documents DISPO:In my clinical judgment this beneficiary meets acute admission criteria, established by [facility], that includes being hospitalized through two midnights. Patient seen in collaboration with Dr. Hung ATTENDING ADDENDUM care coordinated with GREY Tolliver please refer to her notes for full details, I agree with her notes patient seen and examined, records reviewed by myself as well on exam, patient seen resting in bed, comfortable denies chest pain, dyspnea, palpitations, dizziness, nausea no other symptoms VS noted and reviewed oriented x 3 , not in distress, speaks in sentences with no effort nor accessory muscle use tachycardic, irregularly irregular rhythm, no murmurs clear breath sounds bilaterally non distended, soft, nontender no bipedal edema, erythema, warmth no neuro deficits WBC 14.7 Crea 0.86 ekg atrial flutter, hr 150S ASSESSMENT/PLAN> ATRIAL FLUTTER Cardizem drip discontinued in the ER as patient's systolic bp decreased to 80's Digoxin 250mcg IV and 0.25mg po given discussed with Dr. Crowe- Cardiology recommend Metoprolol 2.5-5mg IV, with IV fluids, monitor BP closely INR therapeutic HYPOTHYROIDISM TSH during last month's admission 20s; L thyroxine increased from 200 to 250mcg TSH today improved to 6, FreeT4 mildly elevated repeat Thyroid function test tomorrow other diagnoses and plan of care as per GREY Tolliver's notes Jg Hung MD VTE Prophylaxis VTE Risk Assessment Done? Y/N: Yes Risk Level: Moderate
[2016-09-03] MEDS ORDERED: OXGN (12:04)
[2016-09-03 12:08] LABS: MAGNESIUM 2.1 mg/dl (1.8-2.4)
[2016-09-03] MEDS ORDERED: SODIUM CHLORIDE 0.9% 500ML 500 ML IV SCH (12:15)
[2016-09-03] MEDS ORDERED: METOPROLOL TARTRATE 1 MG/ML VIAL IV STA (12:19)
[2016-09-03] MEDS ORDERED: METOPROLOL TARTRATE 1 MG/ML VIAL ONE (12:28)
[2016-09-03] MEDS ORDERED: METOPROLOL TARTRATE 1 MG/ML VIAL IV PRN (12:45)
[2016-09-03] MEDS ORDERED: METOPROLOL TARTRATE 1 MG/ML VIAL IV ONE (13:30)
[2016-09-03 13:39] VITALS: BP 85/65; PULSE 153; TEMP 36.3; O2SAT 93
[2016-09-03 14:38] VITALS: BP 99/74
[2016-09-03 15:06] VITALS: BP 93/69; PULSE 160; TEMP 36.8; O2SAT 95
[2016-09-03] MEDS: WARFARIN SOD 6 MG TAB PO SCH (16:00)
[2016-09-03 18:41] LABS: URINE APPEARANCE CLEAR (CLEAR); URINE BILIRUBIN NEG (NEG); URINE COLOR YELLOW; URINE NITRITE NEG (NEG); URINE SPECIFIC GRAVITY 1.007 (1.000-1.030); UROBILINOGEN NEG (NEG)
[2016-09-03 18:44] LABS: MANUAL MICROSCOPIC REQUIRED? NO; REVIEW REQ? NO
[2016-09-03] MEDS: SODIUM CHLORIDE 0.9% 1000ML 1,000 ML IV SCH ×2 (18:58→20:06)
[2016-09-03 19:23] VITALS: BP 91/46; PULSE 82; TEMP 36.5; O2SAT 94
[2016-09-03] MEDS: LOPERAMIDE HCL 2 MG CAP PO SCH (20:10)
[2016-09-03] MEDS: RANITIDINE HCL 150 MG TAB PO SCH (20:10)
[2016-09-03] MEDS: NORTRIPTYLINE HCL 10 MG CAP PO SCH (20:11)
[2016-09-03 20:13] VITALS: BP 106/62
[2016-09-03] MEDS: SOTALOL HCL 80 MG TAB PO SCH (20:46)
[2016-09-03] MEDS: ACETAMINOPHEN 325 MG TAB PO PRN (20:48)
[2016-09-03 22:24] LABS: CKMB/CK RATIO 4.2 (0-3.0)
[2016-09-03 23:04] VITALS: BP 119/59; PULSE 79; TEMP 37.1; O2SAT 93
--- NOTE | 2016-09-04 02:19 | CARDIOLOGY CONSULTATION ---
DATE OF CONSULTATION: 09/03/2016 REFERRING PHYSICIAN: Dr. Hung. REASON FOR CONSULTATION: Atrial flutter. HISTORY OF PRESENT ILLNESS: Mr. Crook is a 70-year-old prisoner at [facility] with a history of hypertension, asthma, peripheral artery disease and hypothyroidism as well as atrial flutter for which he was previously hospitalized approximately 1 month ago who returned again to the hospital in the setting of atrial flutter with RVR. The patient was most recently admitted at the end of July, at which time he presented to the ED with heart rates in the 160s. He was treated with IV diltiazem before converting to sinus rhythm. He underwent an echocardiogram which showed normal biventricular function with a fixed mass on his anterior mitral valve leaflet, for which he underwent a ILENE and was thought only to have a mass which was thought to be a calcified nodule less likely but vegetation. He was discharged on diltiazem b.i.d. which he had been taking at the [facility]. He was also started on Coumadin with INRs, per report from [facility] medical unit of 1.9 and 1.8 most recently. The day prior to admission, the patient was having issues with relative hypotension and as a result diltiazem was held, the morning of admission, the patient presented relatively hypotensive with palpitations and heart rates noted to be in the 150s. As a result, he was transferred to the [facility] ED. In the ED, the patient was noted to have heart rates in the 150s-160s. He received IV metoprolol as well as IV digoxin and p.o. digoxin in the setting of relative hypotensive with blood pressures in the 80s and 90s. Despite this, he persisted in atrial flutter with RVR. He was admitted to telemetry and at time of interview, the patient was comfortable but tachycardic. He denied any chest pain, presyncope or other new symptoms. Denied any precipitating fevers, chills or infection symptoms. PAST MEDICAL HISTORY: 1. Atrial flutter with RVR. 2. Hypertension. 3. Asthma. 4. Hypothyroidism. 5. Peripheral artery disease. 6. Osteoarthritis. SOCIAL HISTORY: The patient says he quit smoking last month. He is currently incarcerated at [facility]. HOME MEDICATIONS: Include Tudorza Pressair, albuterol, Alvesco, clopidogrel 70, diltiazem 120 mg b.i.d., levothyroxine 225 mcg daily, Imodium, loratadine, nortriptyline, pentoxifylline, ranitidine and Coumadin. ALLERGIES: ALLERGIC TO: 1. ASPIRIN, ALTHOUGH WHICH HE SAID WAS A NOSEBLEED A KID, ALTHOUGH HAS PREVIOUSLY BEEN ABLE TO TAKE MORE RECENTLY. 2. PROCAINE. 3. ROSUVASTATIN. REVIEW OF SYSTEMS: Ten point review of systems completed and otherwise negative or listed in HPI. PHYSICAL EXAMINATION: VITAL SIGNS: Initially, temperature 36.8, pulse 160, blood pressure 93/69. He is satting 95% on 2 liters. GENERAL: The patient appears very comfortable in no acute distress. HEENT: Sclerae are anicteric. Oropharynx is clear. Mucous membranes are moist. NECK: Supple with no lymphadenopathy. LUNGS: Clear to auscultation bilaterally. CARDIAC: He is tachycardic, regular but with no appreciable murmurs, rubs or gallops. ABDOMEN: Soft, nontender and nondistended with positive bowel sounds. EXTREMITIES: Warm. SKIN: Shows no rashes or lesions. NEUROLOGIC: Cranial nerves II-XII are grossly intact. PSYCHIATRIC: He is alert and oriented x3. LABORATORY DATA: White blood cell count 14.8, hemoglobin 13.5, platelets 279. His INR is 2.2 today. Sodium 136, potassium 3.9, BUN 15, creatinine of 0.86. His TSH remains elevated at 6.5. His troponin has been negative x2. Magnesium of 2.1. IMAGING: Chest x-ray showed stable mild chronic interstitial thickening with no other acute cardiopulmonary process. EKG on admission showed atrial flutter with variable AV block with no significant ST abnormalities noted. IMPRESSION AND PLAN: 1. Atrial flutter with rapid ventricular rate. 2. Relative hypotension. 3. Peripheral artery disease. 4. Calcified mitral valve leaflet. The patient readmitted in the setting of atrial flutter with rapid ventricular rate. He has had relative hypotension which has limited the ability to use AV-cynthia agents. No clear precipitating causes, although does have leukocytosis on initial lab work. Going forward, will continue to attempt to rate control with digoxin load. In the setting of recurrent events with relative hypotension, I do feel that antiarrhythmics are warranted and will plan to start on sotalol 80 mg q. 12 hours. Will plan to check EKGs for QTC lengthening 4-5 hours after doses and will need to monitor for at least 3 doses in the hospital. If remains in atrial flutter overnight with rapid ventricular rate, will consider external cardioversion tomorrow. The patient's INRs have been largely therapeutic over the last month. Otherwise, he will continue on his prior Plavix and can stop prior diltiazem. Will continue to follow while in the hospital. Thank you for allowing us to participate in the care of this patient. Please contact with any questions. ANT
[2016-09-04] MEDS: SODIUM CHLORIDE 0.9% 1000ML 1,000 ML IV SCH ×3 (02:56→23:27)
[2016-09-04 04:17] VITALS: BP 102/48; PULSE 74; TEMP 36.8; O2SAT 96
[2016-09-04 06:06] LABS: HEMATOCRIT 37.6 % (42-52); MEAN CELL VOLUME 91.3 fL (80-100); MEAN CORPUSCULAR HEMOGLOBIN 29.1 pg (25-34); MEAN CORPUSCULAR HGB CONC 31.9 g/dl (32-36); MEAN PLATELET VOLUME 9.8 fL (7.4-10.4); PLATELET COUNT 240 K/uL (130-400); RED BLOOD COUNT 4.12 M/uL (4.7-6.1); WHITE BLOOD COUNT 10.58 K/uL (4.8-10.8)
[2016-09-04] MEDS: LEVOTHYROXINE 75 MCG TAB PO SCH (06:15)
[2016-09-04] MEDS: ACETAMINOPHEN 325 MG TAB PO PRN ×2 (06:16→20:48)
[2016-09-04 06:20] LABS: INR 2.8 (0.9-1.1); PROTHROMBIN TIME (PATIENT) 31.8 SECONDS (9.0-12.0)
[2016-09-04 06:42] LABS: BUN/CREATININE RATIO 20.3 (10-20); CALCIUM 8.6 mg/dl (8.5-10.1); CREATININE 0.63 mg/dl (0.60-1.40); MAGNESIUM 2.2 mg/dl (1.8-2.4); POTASSIUM 4.2 mmol/L (3.5-5.1)
[2016-09-04 06:54] LABS: THYROID STIMULATING HORMONE 3.21 uIu/ml (0.300-4.500)
[2016-09-04 07:42] VITALS: BP 108/53; PULSE 71; TEMP 37; O2SAT 95
[2016-09-04] MEDS: CLOPIDOGREL BISULFATE 75 MG TAB PO SCH (07:45)
[2016-09-04] MEDS: RANITIDINE HCL 150 MG TAB PO SCH ×2 (07:45→20:44)
[2016-09-04] MEDS: LOPERAMIDE HCL 2 MG CAP PO SCH ×2 (07:45→20:43)
[2016-09-04] MEDS: SOTALOL HCL 80 MG TAB PO SCH ×2 (07:45→20:44)
[2016-09-04] MEDS: LORATADINE 10 MG TAB PO SCH (07:45)
[2016-09-04 11:01] VITALS: BP 105/53; PULSE 20; PULSE 67; TEMP 36.8; O2SAT 93
--- NOTE | 2016-09-04 12:42 | Progress Note ---
Internal Med Progress Note Date of Service: Sep 04, 2016. Provider Documentation: SUBJECTIVE: Patient is seen and examined at bedside. He states diazines has resolved. Feels well currently. Denies any chest pain, SOB, palpitations, nausea, diaphoresis. OBJECTIVE: Vital Signs-as noted below Physical Exam: General Appearance:Moderately built and nourished, no apparent distress Head: normocephalic, Atraumatic Eyes: normal inspection, EOMI, PERRLA Neck: supple, no JVD, Trachea midline Respiratory/Chest: Normal breath sounds, CTA, No accessory muscle use Cardiovascular: S1, S2, NSR, No murmur Abdomen/GI:Soft, Non tender, Bowel sounds present Extremities/Musculoskelatal:normal inspection, no edema Neurologic/Psych:AAOX3, grossly no focal neurological deficits Skin: normal color, warm Lab data as noted below. ASSESSMENT & PLAN: RECURRENT PAROXYSMAL ATRIAL FIBRILLATION/FLUTTER Presented with dizziness and found to have Aflutter with RVR and relative hypotension Initially started on Cardizem; failed Digoxin and later switched to Sotalol INR therapeutic: Continue Coumadin Pentoxifylline discontinued as can cause arrhythmia Serial EKG to look for QTC prolongation Last ECHO in Jul 2016: Normal EF and mitral valve calcification Appreciate cardiology help Continue plavix Diltiazem discontinued HYPOTENSION Improving Currently asymptomatic Continue IVF LEUKOCYTOSIS No source of infection Resolved HYPOTHYROIDISM TSH:3.2 Continue Levothyroxine TSH during last month's admission 20s; L thyroxine increased from 200 to 250mcg at the time Needs repeat thyroid function testing as outpatient COPD with chronic hypoxia stable continue home inhalers, oxygen PVD continue Plavix Discontinue Pentoxifylline DVT PROPHYLAXIS: Coumadin CODE STATUS: FULL CODE DISPO: Plan to DC tomorrow if no complications and once cleared by cardiology Vital Signs: Date Time Temp Pulse Resp B/P Pulse Ox O2 Delivery O2 Flow Rate FiO2 09/04/16 11:01 36.8 67 20 105/53 93 2.0 09/04/16 08:00 Nasal Cannula 2.0 09/04/16 07:42 37.0 71 18 108/53 95 2.0 09/04/16 04:17 36.8 74 16 102/48 96 Nasal Cannula 2.0 09/04/16 04:00 Nasal Cannula 2.0 09/04/16 00:00 Nasal Cannula 2.0 09/03/16 23:04 37.1 79 18 119/59 93 Nasal Cannula 1.0 09/03/16 20:13 106/62 09/03/16 20:00 Nasal Cannula 09/03/16 19:23 36.5 82 16 91/46 94 Nasal Cannula 2.0 09/03/16 16:00 Nasal Cannula 09/03/16 15:06 36.8 160 20 93/69 95 Nasal Cannula 2.0 09/03/16 14:38 99/74 09/03/16 13:39 36.3 153 18 85/65 93 Nasal Cannula 2.0 09/03/16 13:30 82 91/46 09/03/16 13:10 141 20 91/64 97 09/03/16 13:05 141 20 91/64 97 Nasal Cannula 2.0 09/03/16 12:55 144 09/03/16 12:54 66 09/03/16 12:45 144 20 91/64 98 Nasal Cannula 2.0 09/03/16 12:31 152 22 95/67 Room Air Lab Results: Results Past 24 Hours Test 09/03/16 15:25 09/03/16 18:00 09/03/16 21:21 09/04/16 05:11 Range/Units Total Creatine Kinase 16 12 39-308 U/L Creatine Kinase MB < 0.5 0.5 0.5-3.6 ng/ml Creatine Kinase MB Ratio 4.2 0-3.0 Troponin I < 0.015 < 0.015 0-0.045 ng/ml Urine Color YELLOW Urine Appearance CLEAR CLEAR Urine pH 7.0 4.5-7.5 Urine Specific [place] 1.007 1.000-1.030 Urine Protein NEG NEG Urine Glucose (UA) NEG NEG Urine Ketones NEG NEG Urine Occult Blood NEG NEG Urine Nitrite NEG NEG Urine Bilirubin NEG NEG Urine Urobilinogen NEG NEG Urine Leukocyte Esterase NEG NEG White Blood Count 10.58 4.8-10.8 K/uL Red Blood Count 4.12 4.7-6.1 M/uL Hemoglobin 12.0 14.0-18.0 g/dL Hematocrit 37.6 42-52 % Mean Corpuscular Volume 91.3 80-100 fL Mean Corpuscular Hemoglobin 29.1 25-34 pg Mean Corpuscular Hemoglobin Concent 31.9 32-36 g/dl RDW Standard Deviation 51.0 36.4-46.3 fL RDW Coefficient of Variation 15.0 11.5-14.5 % Platelet Count 240 130-400 K/uL Mean Platelet Volume 9.8 7.4-10.4 fL Prothrombin Time 31.8 9.0-12.0 SECONDS Prothromb Time International Ratio 2.8 0.9-1.1 Sodium Level 140 136-145 mmol/L Potassium Level 4.2 3.5-5.1 mmol/L Chloride Level 105 98-107 mmol/L Carbon Dioxide Level 27 21-32 mmol/L Anion Gap 8.0 3-11 mmol/L Blood Urea Nitrogen 13 7-18 mg/dl Creatinine 0.63 0.60-1.40 mg/dl Est Creatinine Clear Calc Drug Dose 108.5 ml/min Estimated GFR () 117.4 Estimated GFR (Non- 101.3 BUN/Creatinine Ratio 20.3 10-20 Random Glucose 92 70-99 mg/dl Calcium Level 8.6 8.5-10.1 mg/dl Magnesium Level 2.2 1.8-2.4 mg/dl Thyroid Stimulating Hormone (TSH) 3.210 0.300-4.500 uIu/ml Free Thyroxine 1.43 0.80-1.60 ng/dl Microbiology Results 09/03/16 Blood Culture, Received Pending 09/03/16 Blood Culture, Received Pending
--- NOTE | 2016-09-04 13:30 | Cardiology Follow-Up ---
Subjective Subjective Date of Service: Sep 04, 2016. Pt evaluation today including: conversation w/ patient, physical exam, chart review, lab review, review of studies, conversation w/ image consultant, review of inpatient medication list Additional Details: Patient converted to sinus rhythm yesterday afternoon. No further events on telemetry. Feeling at baseline today. Chest pain, palpitations, limiting shortness of breath Problem List Medical Problems: (1) Chest pain Status: Acute (2) Dizzy Status: Acute (3) Hypotension Status: Acute (4) Hypothyroid Status: Acute (5) Left chest pressure Status: Acute (6) Rapid atrial fibrillation Status: Acute Review of Systems Constitutional: No fever Respiratory: + cough, No shortness of breath Cardiac: No chest pain Abdomen: No nausea, No pain Musculoskeletal: + calf pain Heme: No abnormal bleeding/bruising Skin: No rash Objective Vital Signs Last Vital Signs Documentation Date Time Temp Pulse Resp B/P Pulse Ox O2 Delivery O2 Flow Rate FiO2 09/04/16 12:00 Nasal Cannula 2.0 09/04/16 11:01 36.8 67 20 105/53 93 Physical Exam: General Appearance: no apparent distress ENT: hearing grossly normal Respiratory/Chest: chest non-tender, no respiratory distress, no accessory muscle use, + decreased breath sounds Cardiovascular: regular rate, rhythm, no edema, no gallop Abdomen: normal bowel sounds, non tender, soft Extremities: no pedal edema, no calf tenderness Neurologic/Psychiatric: alert, normal mood/affect, oriented x 3 Skin: normal color, warm/dry Assessment and Plan 1. Atrial flutter with rapid ventricular response--converted to sinus rhythm 2. Relative hypotension--blood pressure stable 3. Peripheral artery disease--intermittent claudication previously on pentoxifylline 4. Calcified anterior mitral valve leaflet Patient back in sinus rhythm since yesterday. As unable to tolerate AV cynthia agents due to relative hypotension plan to start on antiarrhythmics. Received 1st dose of sotalol yesterday evening. Will plan to monitor in-hospital on telemetry for 1st 4 doses. Plan to check EKG 4-5 hours after each dose. Monitor renal function and electrolytes Assuming QTC largely unchanged continue on 80 milligrams b.i.d. at discharge Continue on Coumadin, therapeutic at present Otherwise from a PAD standpoint okay to discontinue pentoxifylline and can continue on anti-platelet therapy. Medications: Current Inpatient Medications Medications (Trade) Dose Ordered Sig/Malcolm Route Start Time Stop Time Status Last Admin Dose Admin Ondansetron HCl (Zofran Inj) 4 mg Q6H PRN IV 09/03/16 11:45 10/03/16 11:44 Nitroglycerin (Nitrostat Tab) 0.4 mg UD PRN SL 09/03/16 11:45 10/03/16 11:44 Clopidogrel Bisulfate (plAVix TAB) 75 mg DAILY PO 09/04/16 09:00 10/04/16 08:59 09/04/16 07:45 75 MG Levothyroxine Sodium (Synthroid Tab) 225 mcg DAILYBB PO 09/04/16 06:00 10/04/16 06:59 09/04/16 06:15 225 MCG Loperamide HCl (Imodium Cap) 2 mg BID PO 09/03/16 21:00 10/03/16 20:59 09/04/16 07:45 2 MG Loratadine (Claritin Tab) 10 mg DAILY PO 09/04/16 09:00 10/04/16 08:59 09/04/16 07:45 10 MG Nortriptyline HCl (Pamelor Cap) 10 mg HS PO 09/03/16 21:00 10/03/16 20:59 09/03/16 20:11 10 MG Ranitidine HCl (zANTac TAB) 150 mg BID PO 09/03/16 21:00 10/03/16 20:59 09/04/16 07:45 150 MG Warfarin Sodium (Coumadin Tab) 6 mg DAILY@1600 PO 09/03/16 16:00 10/03/16 15:59 09/03/16 16:00 6 MG Miscellaneous Information (Order Awaiting Action) 1 ea QS N/A 09/03/16 16:00 10/03/16 15:59 Miscellaneous Information 1 ea 1 ea QS N/A 09/03/16 16:00 10/03/16 15:59 Sodium Chloride (Nss 1000ml) 1,000 ml @ 75 mls/hr [id number] IV 09/03/16 12:15 10/03/16 12:14 09/04/16 02:56 125 MLS/HR Metoprolol Tartrate (Lopressor Iv) 2.5 mg Q4 PRN IV 09/03/16 12:45 10/03/16 12:44 Acetaminophen (Tylenol Tab) 650 mg Q4H PRN PO 09/03/16 16:45 10/03/16 16:44 09/04/16 06:16 650 MG Sotalol HCl (Betapace Tab) 80 mg Q12 PO 09/03/16 21:00 10/03/16 20:59 09/04/16 07:45 80 MG Lab Results: 09/04/16 05:11 09/04/16 05:11 Test 09/03/16 18:00 09/03/16 21:21 09/04/16 05:11 Urine Color YELLOW Urine Appearance CLEAR (CLEAR) Urine pH 7.0 (4.5-7.5) Urine Specific [place] 1.007 (1.000-1.030) Urine Protein NEG (NEG) Urine Glucose (UA) NEG (NEG) Urine Ketones NEG (NEG) Urine Occult Blood NEG (NEG) Urine Nitrite NEG (NEG) Urine Bilirubin NEG (NEG) Urine Urobilinogen NEG (NEG) Urine Leukocyte Esterase NEG (NEG) Total Creatine Kinase 12 U/L (39-308) Creatine Kinase MB 0.5 ng/ml (0.5-3.6) Creatine Kinase MB Ratio 4.2 (0-3.0) Troponin I < 0.015 ng/ml (0-0.045) Red Blood Count 4.12 M/uL (4.7-6.1) Mean Corpuscular Volume 91.3 fL (80-100) Mean Corpuscular Hemoglobin 29.1 pg (25-34) Mean Corpuscular Hemoglobin Concent 31.9 g/dl (32-36) RDW Standard Deviation 51.0 fL (36.4-46.3) RDW Coefficient of Variation 15.0 % (11.5-14.5) Mean Platelet Volume 9.8 fL (7.4-10.4) Prothrombin Time 31.8 SECONDS (9.0-12.0) Prothromb Time International Ratio 2.8 (0.9-1.1) Anion Gap 8.0 mmol/L (3-11) Est Creatinine Clear Calc Drug Dose 108.5 ml/min Estimated GFR () 117.4 Estimated GFR (Non- 101.3 BUN/Creatinine Ratio 20.3 (10-20) Calcium Level 8.6 mg/dl (8.5-10.1) Magnesium Level 2.2 mg/dl (1.8-2.4) Thyroid Stimulating Hormone (TSH) 3.210 uIu/ml (0.300-4.500) Free Thyroxine 1.43 ng/dl (0.80-1.60)
[2016-09-04 15:09] VITALS: BP 102/59; PULSE 78; TEMP 37; O2SAT 95
[2016-09-04] MEDS: WARFARIN SOD 6 MG TAB PO SCH (16:48)
[2016-09-04 18:52] VITALS: BP 124/69; PULSE 88; TEMP 37.1; O2SAT 92
[2016-09-04 20:00] VITALS: O2SAT 92
[2016-09-04] MEDS: NORTRIPTYLINE HCL 10 MG CAP PO SCH (20:44)
[2016-09-05] VITALS: BP 105/55; PULSE 73; TEMP 36.9; O2SAT 92
[2016-09-05 00:16] VITALS: O2SAT 92
[2016-09-05 03:59] VITALS: BP 110/59; PULSE 68; TEMP 36.9; O2SAT 95
[2016-09-05] MEDS: LEVOTHYROXINE 75 MCG TAB PO SCH (04:06)
[2016-09-05] MEDS: ACETAMINOPHEN 325 MG TAB PO PRN (04:09)
[2016-09-05 04:46] VITALS: O2SAT 92
[2016-09-05 06:18] LABS: BASO % 0.2 %; BASO ABS # 0.02 K/uL (0-0.2); COMPLETE YES; EOS % 1.2 %; HEMATOCRIT 35.6 % (42-52); IG% 0.5 %; LYMPH % 11.8 %; LYMPH ABS # 1.25 K/uL (1.2-3.4); MEAN CELL VOLUME 89.4 fL (80-100); MEAN CORPUSCULAR HEMOGLOBIN 29.6 pg (25-34); MEAN CORPUSCULAR HGB CONC 33.1 g/dl (32-36); MEAN PLATELET VOLUME 9.5 fL (7.4-10.4); MONO % 10.1 %; NEUT % 76.2 %; PLATELET COUNT 225 K/uL (130-400); RED BLOOD COUNT 3.98 M/uL (4.7-6.1); WHITE BLOOD COUNT 10.62 K/uL (4.8-10.8)
[2016-09-05 06:38] LABS: BUN/CREATININE RATIO 19.5 (10-20); CALCIUM 8.2 mg/dl (8.5-10.1); CREATININE 0.64 mg/dl (0.60-1.40); POTASSIUM 3.9 mmol/L (3.5-5.1)
[2016-09-05 07:17] VITALS: BP 98/58; PULSE 64; TEMP 36.9; O2SAT 93
[2016-09-05] MEDS: LORATADINE 10 MG TAB PO SCH (08:57)
[2016-09-05] MEDS: SOTALOL HCL 80 MG TAB PO SCH (08:57)
[2016-09-05] MEDS: RANITIDINE HCL 150 MG TAB PO SCH (08:57)
[2016-09-05] MEDS: CLOPIDOGREL BISULFATE 75 MG TAB PO SCH (08:58)
[2016-09-05] MEDS: LOPERAMIDE HCL 2 MG CAP PO SCH (08:58)
[2016-09-05] MEDS ORDERED: ALBUTEROL 0.083% NEBU SOLN 3 ML VIAL INH PRN (09:15)
--- NOTE | 2016-09-05 09:23 | Progress Note ---
Internal Med Progress Note Date of Service: Sep 05, 2016. Provider Documentation: SUBJECTIVE: Patient is seen and examined at bedside. Denies any chest pain, SOB, palpitations, nausea, diaphoresis. OBJECTIVE: Vital Signs-as noted below Physical Exam: General Appearance:Moderately built and nourished, no apparent distress Head: normocephalic, Atraumatic Eyes: normal inspection, EOMI, PERRLA Neck: supple, no JVD, Trachea midline Respiratory/Chest: Normal breath sounds, Mild expiratory wheezes, No accessory muscle use Cardiovascular: S1, S2, NSR, No murmur Abdomen/GI:Soft, Non tender, Bowel sounds present Extremities/Musculoskelatal:normal inspection, no edema Neurologic/Psych:AAOX3, grossly no focal neurological deficits Skin: normal color, warm Lab data as noted below. ASSESSMENT & PLAN: RECURRENT PAROXYSMAL ATRIAL FIBRILLATION/FLUTTER Presented with dizziness and found to have Aflutter with RVR and relative hypotension Initially started on Cardizem; failed Digoxin and later switched to Sotalol INR therapeutic: Continue Coumadin Pentoxifylline discontinued as can cause arrhythmia Serial EKG to look for QTC prolongation Last ECHO in Jul 2016: Normal EF and mitral valve calcification Appreciate cardiology help Continue plavix Diltiazem discontinued Patient converted back to sinus. Will continue Sotalol at 80mg BID HYPOTENSION Improved Currently asymptomatic DC IVF, home antihypertensive meds LEUKOCYTOSIS No source of infection Resolved HYPOTHYROIDISM TSH:3.2 Continue Levothyroxine TSH during last month's admission 20s; L thyroxine increased from 200 to 250mcg at the time Needs repeat thyroid function testing as outpatient COPD with chronic hypoxia stable continue home inhalers Chronic Oxygen dependency PVD continue Plavix Discontinue Pentoxifylline secondary to arrhythmias DVT PROPHYLAXIS: Coumadin CODE STATUS: FULL CODE DISPO: Plan to discharge today. Vital Signs: Date Time Temp Pulse Resp B/P Pulse Ox O2 Delivery O2 Flow Rate FiO2 09/05/16 08:00 Room Air 09/05/16 07:17 36.9 64 16 98/58 93 2.0 09/05/16 04:46 92 Nasal Cannula 2.0 09/05/16 03:59 36.9 68 18 110/59 95 Nasal Cannula 2.0 09/05/16 00:16 92 Nasal Cannula 2.0 09/05/16 00:00 36.9 73 18 105/55 92 Nasal Cannula 2.0 09/04/16 20:00 92 Nasal Cannula 2.0 09/04/16 18:52 37.1 88 18 124/69 92 Nasal Cannula 2.0 09/04/16 16:00 Nasal Cannula 2.0 09/04/16 15:09 37.0 78 18 102/59 95 Nasal Cannula 2.0 09/04/16 12:00 Nasal Cannula 2.0 09/04/16 11:01 36.8 67 20 105/53 93 2.0 Lab Results: Results Past 24 Hours Test 09/05/16 05:49 Range/Units White Blood Count 10.62 4.8-10.8 K/uL Red Blood Count 3.98 4.7-6.1 M/uL Hemoglobin 11.8 14.0-18.0 g/dL Hematocrit 35.6 42-52 % Mean Corpuscular Volume 89.4 80-100 fL Mean Corpuscular Hemoglobin 29.6 25-34 pg Mean Corpuscular Hemoglobin Concent 33.1 32-36 g/dl Platelet Count 225 130-400 K/uL Mean Platelet Volume 9.5 7.4-10.4 fL Neutrophils (%) (Auto) 76.2 % Lymphocytes (%) (Auto) 11.8 % Monocytes (%) (Auto) 10.1 % Eosinophils (%) (Auto) 1.2 % Basophils (%) (Auto) 0.2 % Neutrophils # (Auto) 8.10 1.4-6.5 K/uL Lymphocytes # (Auto) 1.25 1.2-3.4 K/uL Monocytes # (Auto) 1.07 0.11-0.59 K/uL Eosinophils # (Auto) 0.13 0-0.5 K/uL Basophils # (Auto) 0.02 0-0.2 K/uL RDW Standard Deviation 49.0 36.4-46.3 fL RDW Coefficient of Variation 14.9 11.5-14.5 % Immature Granulocyte % (Auto) 0.5 % Immature Granulocyte # (Auto) 0.05 0.00-0.02 K/uL Prothrombin Time 34.0 9.0-12.0 SECONDS Prothromb Time International Ratio 3.0 0.9-1.1 Sodium Level 139 136-145 mmol/L Potassium Level 3.9 3.5-5.1 mmol/L Chloride Level 104 98-107 mmol/L Carbon Dioxide Level 26 21-32 mmol/L Anion Gap 9.0 3-11 mmol/L Blood Urea Nitrogen 13 7-18 mg/dl Creatinine 0.64 0.60-1.40 mg/dl Est Creatinine Clear Calc Drug Dose 106.8 ml/min Estimated GFR () 116.6 Estimated GFR (Non- 100.6 BUN/Creatinine Ratio 19.5 10-20 Random Glucose 101 70-99 mg/dl Calcium Level 8.2 8.5-10.1 mg/dl
--- NOTE | 2016-09-05 09:48 | Cardiology Follow-Up ---
Subjective Date of Service: Sep 05, 2016. Pt evaluation today including: conversation w/ patient History of Present Illness This is a 70-year-old incarcerated male with a history of hypertension, peripheral arterial disease, hypothyroidism and atrial flutter. In July 2016 he presented with a rapid heart rate, was treated with intravenous diltiazem and converted to sinus rhythm. Echocardiography showed normal biventricular function. He was discharged on diltiazem 120 mg twice a day. He presented with relative hypotension and a heart rate of 160 bpm in what appears to be atrial flutter with rapid AV conduction. He was treated with intravenous digoxin and oral sotalol and converted to sinus rhythm. His blood pressure has been running a little bit low (90-100 systolic), however he tells me that that is what it typically runs as an outpatient. He is not having any side effects from the medications. Social History Smoking Status: Former Smoker History of Alcohol Use: No Review of Systems Respiratory: No shortness of breath Cardiac: No chest pain Medications Cardiovascular: Item Value Date Time Clopidogrel 75 mg 09/04/16 0900 Bisulfate DAILY/PO 09/05/16 0858 (plAVix TAB) Sotalol HCl 80 mg 09/03/16 2100 (Betapace Tab) Q12/PO 09/05/16 0857 Warfarin Sodium 6 mg 09/03/16 1600 (Coumadin Tab) DAILY@1600/PO 09/04/16 1648 Metoprolol 2.5 mg 09/03/16 1245 Tartrate Q4 PRN/IV (Lopressor Iv) Objective Vital Signs Past 12 Hours Date Time Temp Pulse Resp B/P Pulse Ox O2 Delivery O2 Flow Rate FiO2 09/05/16 07:17 36.9 64 16 98/58 93 2.0 09/05/16 04:46 92 Nasal Cannula 2.0 09/05/16 03:59 36.9 68 18 110/59 95 Nasal Cannula 2.0 09/05/16 00:16 92 Nasal Cannula 2.0 09/05/16 00:00 36.9 73 18 105/55 92 Nasal Cannula 2.0 Last Recorded Weight-Kilograms: 70.000 Intake & Output 8-Hour Column 09/04/16 09/04/16 09/05/16 15:59 23:59 07:59 Intake Total 1072 ml 2089 ml 554 ml Output Total 1050 ml 1100 ml 500 ml Balance 22 ml 989 ml 54 ml 24-Hour Column 09/05/16 07:59 Intake Total 3715 ml Output Total 2650 ml Balance 1065 ml Physical Exam Constitutional: Level of Distress: NAD Lungs: Auscultation: breath sounds normal Cardiovascular: Heart Auscultation: RRR Data Laboratory Results: Last 24 Hours Test 09/05/16 05:49 White Blood Count 10.62 K/uL Red Blood Count 3.98 M/uL Hemoglobin 11.8 g/dL Hematocrit 35.6 % Mean Corpuscular Volume 89.4 fL Mean Corpuscular Hemoglobin 29.6 pg Mean Corpuscular Hemoglobin Concent 33.1 g/dl Platelet Count 225 K/uL Mean Platelet Volume 9.5 fL Neutrophils (%) (Auto) 76.2 % Lymphocytes (%) (Auto) 11.8 % Monocytes (%) (Auto) 10.1 % Eosinophils (%) (Auto) 1.2 % Basophils (%) (Auto) 0.2 % Neutrophils # (Auto) 8.10 K/uL Lymphocytes # (Auto) 1.25 K/uL Monocytes # (Auto) 1.07 K/uL Eosinophils # (Auto) 0.13 K/uL Basophils # (Auto) 0.02 K/uL RDW Standard Deviation 49.0 fL RDW Coefficient of Variation 14.9 % Immature Granulocyte % (Auto) 0.5 % Immature Granulocyte # (Auto) 0.05 K/uL Prothrombin Time 34.0 SECONDS Prothromb Time International Ratio 3.0 Sodium Level 139 mmol/L Potassium Level 3.9 mmol/L Chloride Level 104 mmol/L Carbon Dioxide Level 26 mmol/L Anion Gap 9.0 mmol/L Blood Urea Nitrogen 13 mg/dl Creatinine 0.64 mg/dl Est Creatinine Clear Calc Drug Dose 106.8 ml/min Estimated GFR () 116.6 Estimated GFR (Non- 100.6 BUN/Creatinine Ratio 19.5 Random Glucose 101 mg/dl Calcium Level 8.2 mg/dl EK09/05/2016 at 6:11 AM, sinus rhythm at 66 bpm, QT interval 418 ms (normal) . No evidence of sotalol toxicity. Telemetry reviewed: No recurrent atrial flutter or fibrillation since conversion to sinus rhythm after admission. Assessment and Plan #1. Atrial fibrillation and flutter: He has presented several times with rapid rates during atrial fibrillation or flutter, heart rate control may be difficult due to chronically low blood pressure. At this point hopefully he will maintain sinus rhythm on sotalol, this will also have some rate controlling benefit due to his beta blocking effect. If he has further difficulty with rapid heart rates we should start digoxin, if that still does not control his rate we may be forced to do either a flutter ablation or AV block and pacemaker implantation but that would be down the road. #2. Hypotension: From what he tells me he normally runs 90-100 systolic, therefore his blood pressure is in that range. He is asymptomatic and there is no evident cause for hypotension. I would just watch this over the next several days as an outpatient to make sure that it remains in his normal range. From my standpoint he should be able to be discharged. Thank you for allowing me to participate in his care.
[2016-09-05] MEDS ORDERED: BTP80 PO (10:59)
--- NOTE | 2016-09-05 11:06 | Discharge Instructions ---
Discharge Instructions Admission Reason for Admission: Rapid Atrial Fibrillation Discharge Discharge Diagnosis / Problem: Atrial Fibrillation/flutter with rvr Discharge Goals Goal(s): Decrease discomfort, Improve function Activity Recommendations Activity Limitations: resume your previous activity Exercise/Sports Limitations: as tolerated . Instructions / Follow-Up Instructions / Follow-Up Follow up with your Primary Care physician in 1 week Follow up with your film or videotape editor Dr.Christophe Jeffery Guzman in 2-4 weeks per recommendations from your primary care physician Seek immediate medical attention if your symptoms reoccur or worsen. Current Hospital Diet Patient's current hospital diet: AHA Diet (Heart Healthy) Discharge Diet Recommended Diet: AHA Diet (Heart Healthy) Pending Studies Studies pending at discharge: no Medical Emergencies . Who to Call and When: Medical Emergencies: If at any time you feel your situation is an emergency, please call 911 immediately. . Non-Emergent Contact Non-Emergency issues call your: Primary Care Provider, Ophthalmic Asst Call Non-Emergent contact if: you have a fever, you have any medication questions If you develop chest pain, palpitations, dizziness. . . "Provider Documentation" section prepared by [facility]. VTE Core Measure Inpt VTE Proph given/why not?: Warfarin (Coumadin)
[2016-09-05 11:38] VITALS: BP 98/58; PULSE 64; TEMP 36.9; O2SAT 93
--- NOTE | 2016-09-05 19:20 | Discharge Summary ---
Discharge Summary Admission Date: Sep 03, 2016 at 11:23 Discharge Date: Sep 05, 2016 Discharge Disposition: Personal care Principal Diagnosis: RECURRENT PAROXYSMAL ATRIAL FIBRILLATION/FLUTTER Procedures: CXR; 1. Stable mild chronic interstitial thickening 2. No evidence of acute parenchymal consolidation Consultations: Cardiology Pending Studies/Follow-Up: Follow up with your Primary Care physician in 1 week Follow up with your editor producer Dr.Christophe Jeffery Guzman in 2-4 weeks per recommendations from your primary care physician Medication Reconciliation New Medications: Sotalol HCl (Sotalol HCl) 80 Mg Tab 80 MG PO Q12 for 30 Days, #60 TAB 1 Refill Continued Medications: Aclidinium [place] (Tudorza Pressair) 400 Mcg/Act Aer 1 PUFF INH BID Albuterol Hfa (Ventolin Hfa) 200 Puffs/35373 Mcg Aers 2 PUFFS INH PRN for UNDECIDED, #1 INHALER Ciclesonide (Alvesco) 160 Mcg/Act Aer 1 PUFF PO BID Clopidogrel (Plavix) 75 Mg Tab 75 MG PO DAILY, TAB Levothyroxine Sodium (Synthroid) 75 Mcg Tab 225 MCG PO DAILYBB for 30 Days, #30 TAB 3 Refills Loperamide Hcl (Imodium) 2 Mg Cap 2 MG PO BID, CAP Loratadine (Claritin) 10 Mg Tab 10 MG PO DAILY, TAB Nortriptyline (Pamelor) 10 Mg Cap 10 MG PO HS CRUSH Oxygen (Oxygen) Gas 2 LITERS NA PRN Ranitidine (Zantac) 150 Mg Tab 150 MG PO BID PRN for UNDECIDED, TAB Warfarin Sodium (Coumadin) 6 Mg Tab 6 MG PO HS, TAB Discontinued Medications: Diltiazem Hcl Coated Beads (Cardizem Cd) 120 Mg Cap 1 CAP PO BID HOLD FOR SBP < 100 Pentoxifylline (Pentoxifylline ER) 400 Mg Tabcr 400 MG PO TID Admission Information HPI (per Admitting provider): Patient seen and examined. 70 year old male with PMHx of Afib on Coumadin, COPD , hypothyroidism, PAD, and HLD presents to the ED from [facility] with tachycardia. Patient reports he feels relatively well. Patient has been having low BP the last several days and his Cardizem has been held. This morning the nurse at [facility] took his vital signs and his HR was in the 150s. BP was systolically in the high 80s. Patient reports he feels lightheaded occasionally but otherwise denies any other issues. He denies fevers, chills, URI symptoms, chest pain, SOB , palpitations, nausea, vomiting, diarrhea, dysuria, calf pain and edema. He reports chronic oxygen use. He states the [facility] takes care of his medications. Patient was admitted in July for new onset Afib/flutter and converted to NSR prior to discharge. In the ED patient is tachycardic to the 150s. BP is in the 90s systolically. HR is in the 150s and is aflutter/fib. TSH is high, as is WBC count is 14K, INR is 2.7. Patient received IVFs and a Cardizem drip is started. He will be admitted for further workup and treatment. Physical Exam (per Admitting): General Appearance: + pertinent finding (Pleasant Wd/WN 70 year old male lying in bed in NAD with guards at bedside ) Head: normocephalic, atraumatic Eyes: PERRL, EOMI, sclerae normal ENT: hearing grossly normal, pharynx normal Neck: supple, no JVD Respiratory/Chest: chest non-tender, lungs clear, normal breath sounds, no respiratory distress, no accessory muscle use Cardiovascular: no edema, no gallop, no JVD, no murmur, normal peripheral pulses, + irregularly irregular (rate 140s ) Abdomen/GI: normal bowel sounds, non tender, soft Back: normal inspection, no muscle spasm Extremities/Musculoskelatal: no calf tenderness, normal capillary refill, no pedal edema Neurologic/Psych: alert, oriented x 3, + pertinent finding (no motor or sensory deficits noted on gross exam ) Skin: normal color, warm/dry, no rash Lymphatic: no adenopathy Hospital Course RECURRENT PAROXYSMAL ATRIAL FIBRILLATION/FLUTTER Presented with dizziness and found to have Aflutter with RVR and relative hypotension Initially started on Cardizem; failed Digoxin and later switched to Sotalol INR therapeutic: Continue Coumadin Pentoxifylline discontinued as can cause arrhythmia Serial EKG to look for QTC prolongation Last ECHO in Jul 2016: Normal EF and mitral valve calcification Appreciate cardiology help Continue plavix Diltiazem discontinued Patient converted back to sinus. Will continue Sotalol at 80mg BID HYPOTENSION Improved Currently asymptomatic DC IVF, home antihypertensive meds LEUKOCYTOSIS No source of infection Resolved HYPOTHYROIDISM TSH:3.2 Continue Levothyroxine TSH during last month's admission 20s; L thyroxine increased from 200 to 250mcg at the time Needs repeat thyroid function testing as outpatient COPD with chronic hypoxia stable continue home inhalers Chronic Oxygen dependency PVD continue Plavix Discontinue Pentoxifylline secondary to arrhythmias DVT PROPHYLAXIS: Coumadin CODE STATUS: FULL CODE DISPO: Plan to discharge today. Total time spent on discharge = This includes examination of the patient, discharge planning, medication reconciliation, and communication with other providers. Discharge Instructions Discharge Instructions Admission Reason for Admission: Rapid Atrial Fibrillation Discharge Discharge Diagnosis / Problem: Atrial Fibrillation/flutter with rvr Discharge Goals Goal(s): Decrease discomfort, Improve function Activity Recommendations Activity Limitations: resume your previous activity Exercise/Sports Limitations: as tolerated . Instructions / Follow-Up Instructions / Follow-Up Follow up with your Primary Care physician in 1 week Follow up with your editor producer Dr.Christophe Jeffery Guzman in 2-4 weeks per recommendations from your primary care physician Seek immediate medical attention if your symptoms reoccur or worsen. Current Hospital Diet Patient's current hospital diet: AHA Diet (Heart Healthy) Discharge Diet Recommended Diet: AHA Diet (Heart Healthy) Pending Studies Studies pending at discharge: no Medical Emergencies . Who to Call and When: Medical Emergencies: If at any time you feel your situation is an emergency, please call 911 immediately. . Non-Emergent Contact Non-Emergency issues call your: Primary Care Provider, Teacher Counselor Call Non-Emergent contact if: you have a fever, you have any medication questions If you develop chest pain, palpitations, dizziness. . . "Provider Documentation" section prepared by [facility]. VTE Core Measure Inpt VTE Proph given/why not?: Warfarin (Coumadin)
[2016-10-18] MEDS ORDERED: GUAI1TAB27 PO (03:36)
[2016-11-27] MEDS ORDERED: ENOX60IN SQ (08:46)
[2016-12-06] MEDS ORDERED: BND25 PO (03:05)
[2016-12-16] MEDS ORDERED: SCOP1DIS14 TD (09:33)
[2016-12-16] MEDS ORDERED: LORA-741 PO (09:33)
[2016-12-16] MEDS ORDERED: RXNS10 PO (09:33)
== END 2016-09-05 13:50 | DRG 310 ==
LOC: ENRESERVDT → ENRESERVTM → EDBD 09:07 → C.EDA 09:09 → C.2E 11:23
PROVIDERS: ADMIT Internal Medicine; ATTEND Internal Medicine
DX: I48.91 Unspecified atrial fibrillation (principal); I48.92 Unspecified atrial flutter; J44.9 Chronic obstructive pulmonary disease, unspecified; I95.9 Hypotension, unspecified; E03.9 Hypothyroidism, unspecified; D72.829 Elevated white blood cell count, unspecified; I73.9 Peripheral vascular disease, unspecified; F17.210 Nicotine dependence, cigarettes, uncomplicated; Z79.02 Long term (current) use of antithrombotics/antiplatelets; Z79.01 Long term (current) use of anticoagulants; Z79.899 Other long term (current) drug therapy

== ENCOUNTER → 2016-10-06 | Outpatient (CLI) | payer OTHER ==
[~2016-10-06] MED LIST changes: +ACET-1311 PO; +ACET-749 PO; +AMIO200T4 PO; -AMOX1TAB42 PO; +AMOX1TAB43 PO; -ATOR-26 PO; +BND25 PO; +BTP80 PO; +CRD200 PO; -DILT120C68 PO; +DOCU1CAP PO; +EMOL-31 TOP; +ENOX60IN SQ; +FERR324T12 PO; +GUAI1TAB27 PO; +HYDR2.5L TOP; +IPRASOL4 INH; +LEVO75TA PO; +LORA-741 PO; +LPR25 PO; +LVNIS60 SQ; +METO1TAB54 PO; +MIDO10TA PO; +NORT10CA2 PO; +NUTR-238 PO; +OMEP20TA PO; -ONDA4TAB46 PO; +ONDA8TAB6 PO; +OXGN; +OXYC-57 PO; +PRED10TA PO; -PRED20TA PO; +PRMT10 PO; +RXNS10 PO; -SALI0.657 NAE; +SCOP1DIS14 TD; +SOTA80TA PO; +SULF800T23 PO; -TRN400 PO; -WARF5TAB7 PO; +WARF6TAB PO; +ZINC1CRE3 TOP; +[UNRECOGNIZED DRUG - CODE] TD
[2016-10-06 11:08] LABS: PROTHROMBIN TIME (PATIENT) > 100.0 SECONDS (9.0-12.0)
[2016-10-06 11:23] LABS: INR > 8.0 (0.9-1.1)
== END ==
LOC: C.LABSPEC 10:36
PROVIDERS: ATTEND Family Medicine
DX: Z51.81 Encounter for therapeutic drug level monitoring (principal); Z79.01 Long term (current) use of anticoagulants

== ENCOUNTER 2016-10-17 23:46 | Inpatient (IN) | payer OTHER ==
[~2016-10-17] VITALS: Ht 172.7 cm; Wt 57.9 kg
[~2016-10-17 23:46] MED LIST changes: -ACET-1311 PO; -ACET-749 PO; -AMIO200T4 PO; -AMOX1TAB43 PO; -BND25 PO; -CRD200 PO; -DOCU1CAP PO; -EMOL-31 TOP; -ENOX60IN SQ; -FERR324T12 PO; -GUAI1TAB27 PO; -HYDR2.5L TOP; -IPRASOL4 INH; -LEVO75TA PO; -LORA-741 PO; -LPR25 PO; -LVNIS60 SQ; -METO1TAB54 PO; -MIDO10TA PO; -NUTR-238 PO; -OMEP20TA PO; -ONDA8TAB6 PO; -OXYC-57 PO; -PRED10TA PO; -PRMT10 PO; -RXNS10 PO; -SCOP1DIS14 TD; -SOTA80TA PO; -SULF800T23 PO; -ZINC1CRE3 TOP; -[UNRECOGNIZED DRUG - CODE] TD
[2016-10-18] VITALS (30 sets, daily range): BP systolic 75–134; BP diastolic 43–70; PULSE 83–142; TEMP 36.7–37; O2SAT 90–99; BMI 21.5
[2016-10-18 00:26] LABS: HEMATOCRIT 33.1 % (42-52); MEAN CELL VOLUME 87.3 fL (80-100); MEAN CORPUSCULAR HEMOGLOBIN 28.8 pg (25-34); MEAN CORPUSCULAR HGB CONC 32.9 g/dl (32-36); MEAN PLATELET VOLUME 9.9 fL (7.4-10.4); PLATELET COUNT 299 K/uL (130-400); RED BLOOD COUNT 3.79 M/uL (4.7-6.1); WHITE BLOOD COUNT 19.12 K/uL (4.8-10.8)
--- NOTE | 2016-10-18 00:29 | EMERGENCY ROOM VISIT NOTE ---
History Report prepared by Johnny: Fredi Munoz Under the Supervision of: Dr. Nadiya Marinelli D.O. First contact with patient: 00:17 Chief Complaint: SHORTNESS OF BREATH Stated Complaint: SHORT OF BREATH Nursing Triage Summary: Pt reports having pain on his side with a cough that started . Pt reports wade sputum that was blood tinged. EMS reports that patient was recently treated for UTI. Pt reports increasing SOB throughout the day today and edema to bilateral ankles. Pulse ox was 80s on 4L and placed on NRB with sats in the 90s. Upon arrival patient is 98% on 4L. Pt reports wearing 2L NC at all times since this past July. Hx Afib, COPD, CAD. History of Present Illness The patient is a 70 year old male who presents to the Emergency Room with complaints of persistent cough that started 2 days ago. The patient notes that his cough is productive with wade phlegm and he is bringing up blood occasionally, too. He also complains of a pain on his right side that is worsened with the cough. He notes that today he couldn't lay down and had to sit up. He felt dizzy, lightheaded and nauseated. He also complains of feet and calf tenderness that has worsened since he has been bedridden for the past few days. The patient presented to the ED last month and was in Atrial Flutter, but his symptoms resolved. He has been on Coumadin for atrial fibrillation. Source of History: patient Onset: 2 days ago Position: other (global) Timing: other (persistent) Associated Symptoms: + nausea Note: Other associated symptoms: productive wade phlegm and blood, pain on his side, dizzy, lightheaded, feet/ calf tenderness Review of Systems See HPI for pertinent positives & negatives. A total of 10 systems reviewed and were otherwise negative. Past Medical & Surgical Medical Problems: (1) Afib (2) Anticoagulation goal of INR 2 to 3 (3) Atrial flutter with rapid ventricular response (4) Atrial flutter, chronic (5) COPD (chronic obstructive pulmonary disease) (6) Hemoptysis (7) Hypothyroidism (8) PVD (peripheral vascular disease) Family History No pertinent family history Social History Smoking Status: Former Smoker Drug Use: none Marital Status: single Housing Status: other Occupation Status: other Current/Historical Medications Scheduled Aclidinium [place] (Tudorza Pressair), 1 PUFF INH BID Ciclesonide (Alvesco), 1 PUFF PO BID Guaifenesin (Guaifenesin), 400 MG PO TID Levothyroxine Sodium (Synthroid), 225 MCG PO DAILY Loperamide Hcl (Imodium), 2 MG PO BID Loratadine (Claritin), 10 MG PO DAILY Nortriptyline (Pamelor), 10 MG PO HS Omeprazole (Omeprazole), 40 MG PO DAILY Sotalol Hcl (Sotalol Hcl), 80 MG PO BID Warfarin Sodium (Coumadin), 6 MG PO HS Scheduled PRN Acetaminophen (Tylenol), 650 MG PO TID PRN for Pain or Fever Albuterol Hfa (Ventolin Hfa), 2 PUFFS INH QID PRN for SOB/Wheezing Ondansetron Hcl (Zofran), 8 MG PO TID PRN for Nausea Allergies Coded Allergies: Aspirin (Verified Allergy, Unknown, 09/03/16) Procaine (Verified Allergy, Unknown, 09/03/16) Rosuvastatin (Verified Allergy, Unknown, UNKNOWN, 09/03/16) Physical Exam Vital Signs Date Time Temp Pulse Resp B/P Pulse Ox O2 Delivery O2 Flow Rate FiO2 10/18/16 06:01 91 28 95/51 95 Nasal Cannula 4.0 10/18/16 05:14 92 24 93/40 93 Nasal Cannula 4.0 10/18/16 04:57 90 27 85/46 95 Nasal Cannula 4.0 10/18/16 03:15 91 10/18/16 03:01 88 28 92/56 97 Nasal Cannula 4.0 10/18/16 02:01 89 26 92/60 97 Nasal Cannula 4.0 10/18/16 01:25 89 30 98/62 94 Nasal Cannula 4.0 10/18/16 01:01 89 22 99/59 100 Nasal Cannula 4.0 10/18/16 00:03 98 Nasal Cannula 4.0 10/18/16 00:02 Nasal Cannula 4.0 10/18/16 00:02 95 Nasal Cannula 4.0 10/18/16 00:02 36.8 132 19 106/61 98 Nasal Cannula 4.0 10/18/16 00:02 134 10/18/16 00:01 99 17 106/61 95 Nasal Cannula 4.0 Physical Exam HEENT: Head - normocephalic and atraumatic Pupils are equal, round, and reactive to light. Extraocular eye muscles are intact, and sclera are anicteric. Nose - moist nasal mucosa without discharge. Mouth - moist buccal mucosa. Oropharynx is nonerythematous and there is no tonsillar exudate or edema noted. Neck: Supple; no JVD, nuchal rigidity, cervical lymphadenopathy, or auscultated bruits. Heart: Tachycardic, regularly irregular. There is a normal S1 and S2 with no murmurs, clicks, or gallops appreciated. Lungs: Absent breath sounds in both bases, rales throughout. Abdomen: Soft, completely nontender, nondistended, with good bowel sounds. There are no palpable pulsatile masses or hepatosplenomegaly. There is no guarding, rigidity, or rebound noted. Extremities: No evidence of cyanosis, clubbing. 1+ edema in feet. left is colder than right. There are easily palpable peripheral pulses. Skin: warm and dry with good turgor and no rashes. Medical Decision & Procedures ER Provider Diagnostic Interpretation: Radiology results as stated below per my review and the radiologist's interpretation: Chest X-ray: moderate CHF with possible consolidation of left lung base. CTA CHEST: Positive for PE, for example all lobes on right. Atelectasis and/or infiltrate. Component of infarct not excluded, ex: right lower lobe. Adenopathy. Confluent opacity in the left lower lobe. May represent atelectasis and/or infiltrate. Suggest follow-up to resolution. Underlying mass is not excluded. Trace pleural fluid. Accessory azygos fissure, gynecomastia and other incidental findings. Laboratory Results 10/18/16 00:14 Test 10/18/16 00:14 10/18/16 01:53 Anion Gap 8.0 mmol/L (3-11) Est Creatinine Clear Calc Drug Dose 83.1 ml/min Estimated GFR () 108.1 Estimated GFR (Non- 93.2 BUN/Creatinine Ratio 21.4 (10-20) Calcium Level 8.8 mg/dl (8.5-10.1) Total Bilirubin 0.5 mg/dl (0.2-1) Aspartate Amino Transf (AST/SGOT) 18 U/L (15-37) Alanine Aminotransferase (ALT/SGPT) 24 U/L (12-78) Alkaline Phosphatase 107 U/L (45-117) Total Creatine Kinase 31 U/L (39-308) Creatine Kinase MB < 0.5 ng/ml (0.5-3.6) Creatine Kinase MB Ratio (0-3.0) Troponin I < 0.015 ng/ml (0-0.045) Pro-B-Type Natriuretic Peptide 1130 pg/ml (0-900) Total Protein 6.7 gm/dl (6.4-8.2) Albumin 2.5 gm/dl (3.4-5.0) Globulin 4.2 gm/dl (2.5-4.0) Albumin/Globulin Ratio 0.6 (0.9-2) Bedside Lactic Acid Venous 0.87 mmol/L (0.90-1.70) Laboratory results per my review. ECG Indication: SOB/dyspnea Rate (beats per minute): 144 Rhythm: atrial flutter Findings: PVC, no acute ischemic change Change: Repeat EKG: Normal sinus rhythm at a rate of 90, no ischemia, no acute ectopy. ED Course 0031: Past medical records reviewed. The patient was evaluated in room B8. A complete history and physical exam was performed. Laboratory studies were drawn as above. A twelve-lead EKG was obtained. Patient had a chest x-ray as described above. 0125: At this time, I reevaluated the patient and his heart went into the 80s. An EKG was repeated. The patient felt somewhat more comfortable at this time. I reviewed the results of his x-ray and labs with him. 0155: At this time, I discussed the patient's case with Dr. Gooden - Hospitalist [facility] [place] and he agreed to accept the patient for further evaluation. Medical Decision The patient is a 70 year old male who presents to the ED with cough and hemoptysis. Differential diagnosis includes pneumonia, PE, CHF, atrial fibrillation with RVR, supratherapeutic INR, and hemoptysis. Labs reviewed by me: white blood cells 19.1, hemoglobin 10.9, normal renal function, glucose 139, LFTs normal, negative cardiac enzymes, BNP 1130, INR 3.7. The patient had atrial flutter with rapid ventricular response on presentation. Chest x-ray had evidence of congestive heart failure. Because of the patient's hemoptysis, shortness of breath and right-sided chest and back pain, I considered the possibility of PE. However, the patient's INR is supratherapeutic at this time. The patient's atrial flutter broke on its own. He was back in a sinus rhythm in the 80s. The patient remained hemodynamically stable while here in the emergency department. I discussed the case with Dr. Gooden and he will evaluate for further management. He obtained a CT scan of the chest which did indeed reveal pulmonary embolus. Consults Time Called: 0150 Consulting Physician: Dr. Gooden - Hospitalist [facility] [place] Returned Call: 0155 At this time, I discussed the patient's case with Dr. Gooden and he agreed to accept the patient for further evaluation. Impression Primary Impression: Atrial flutter with rapid ventricular response Additional Impression: Pulmonary embolism Scribe Attestation The scribe's documentation has been prepared under my direction and personally reviewed by me in its entirety. I confirm that the note above accurately reflects all work, treatment, procedures, and medical decision making performed by me. Departure Information Dispostion Being Evaluated By Hospitalist Referrals Frances DOHERTY (PCP) Problem Qualifiers
[2016-10-18 00:43] LABS: ALT/SGPT 24 U/L (12-78); BLOOD UREA NITROGEN 17 mg/dl (7-18); BUN/CREATININE RATIO 21.4 (10-20); CALCIUM 8.8 mg/dl (8.5-10.1); CARBON DIOXIDE 29 mmol/L (21-32); CHLORIDE 98 mmol/L (98-107); CREATININE 0.77 mg/dl (0.60-1.40); GLUCOSE 139 mg/dl (70-99); SODIUM 135 mmol/L (136-145)
[2016-10-18 00:48] LABS: ALB/GLOB RATIO 0.6 (0.9-2); ALKALINE PHOSPHATASE 107 U/L (45-117); AST/SGOT 18 U/L (15-37)
[2016-10-18 00:52] LABS: PARTIAL THROMBOPLASTIN RATIO 2.5; PROTHROMBIN TIME (PATIENT) 42.2 SECONDS (9.0-12.0)
[2016-10-18 00:54] LABS: INR 3.7 (0.9-1.1)
[2016-10-18] MEDS ORDERED: OPTIRAY 320 IV PRN (03:15)
--- NOTE | 2016-10-18 03:28 | History and Physical ---
History & Physical Date & Time of Service: Oct 18, 2016 at 03:06 Chief Complaint: Short Of Breath Primary Care Physician: Frances DOHERTY History of Present Illness Source: patient 70 y/o M w/Hx chronic atrial flutter on Coumadin, COPD - presents from a correctional facility for SOB, cough and hemoptysis over the last 2-3 days. He denies a fever or rigors. Denies CP, N/V, diarrhea or dysuria. He admits to weakness. Initial CXR suggests CHF vs B/L PNM - a CT chest is pending. Labs reveal leukocytosis and an elevated BNP. Past Medical/Surgical History Medical Problems: (1) Afib Status: Chronic (2) Anticoagulation goal of INR 2 to 3 Status: Chronic (3) Atrial flutter with rapid ventricular response Permanent Comment: now in Normal sinus rhythms Status: Resolved (4) COPD (chronic obstructive pulmonary disease) Status: Chronic - 2L O2 (5) Hypothyroidism Status: Chronic (6) PVD (peripheral vascular disease) Status: Chronic 7) Colon CA 2004 - states it was discovered early however he was treated with chemo and radiation only. Family History No pertinent family history Noncontributory - reviewed Social History Smoking Status: Former Smoker Drug Use: none Marital Status: single Housing status: other Occupational Status: other Immunizations History of Influenza Vaccine: Yes History of Tetanus Vaccine?: Yes History of Pneumococcal: Yes History of Hepatitis B Vaccine: Yes Multi-Drug Resistant Organisms History of MDRO: No Allergies Coded Allergies: Aspirin (Verified Allergy, Unknown, 09/03/16) Procaine (Verified Allergy, Unknown, 09/03/16) Rosuvastatin (Verified Allergy, Unknown, UNKNOWN, 09/03/16) Home Medications Scheduled Aclidinium [place] (Tudorza Pressair), 1 PUFF INH BID Ciclesonide (Alvesco), 1 PUFF PO BID Clopidogrel (Plavix), 75 MG PO DAILY Levothyroxine Sodium (Synthroid), 225 MCG PO DAILYBB Loperamide Hcl (Imodium), 2 MG PO BID Loratadine (Claritin), 10 MG PO DAILY Nortriptyline (Pamelor), 10 MG PO HS Oxygen (Oxygen), 2 LITERS NA PRN Sotalol HCl (Sotalol HCl), 80 MG PO Q12 Warfarin Sodium (Coumadin), 6 MG PO HS Scheduled PRN Albuterol Hfa (Ventolin Hfa), 2 PUFFS INH for UNDECIDED Ranitidine (Zantac), 150 MG PO BID PRN for UNDECIDED Review of Systems Constitutional: No chills, No fever, No sweats Eyes: No eye pain, No worsening of vision ENT: No hearing loss, No nasal symptoms, No unusual epistaxis Respiratory: + cough, + problem reported (Hemoptysis), + shortness of breath, + sputum, No wheezing Cardiovascular: No PND, No chest pain, No orthopnea Abdomen: No nausea, No pain, No vomiting Musculoskeletal: + problem reported (chronic lower extremity pain and edema), No joint pain, No muscle pain Genitourinary - Male: No dysuria, No hematuria, No urinary frequency, No urinary urgency Neurologic: + weakness, No memory loss, No paralysis Psychiatric: No anhedonism, No depression symptoms Endocrine: No fatigue Hematologic / Lymphatic: + abnormal bleeding/bruising Integumentary: No rash Allergic / Immunologic: No environmental allergies Physical Exam Vital Signs Date Time Temp Pulse Resp B/P Pulse Ox O2 Delivery O2 Flow Rate FiO2 10/18/16 02:01 89 26 92/60 97 Nasal Cannula 4.0 10/18/16 01:25 89 30 98/62 94 Nasal Cannula 4.0 10/18/16 01:01 89 22 99/59 100 Nasal Cannula 4.0 10/18/16 00:03 98 Nasal Cannula 4.0 10/18/16 00:02 Nasal Cannula 4.0 10/18/16 00:02 95 Nasal Cannula 4.0 10/18/16 00:02 36.8 132 19 106/61 98 Nasal Cannula 4.0 10/18/16 00:02 134 10/18/16 00:01 99 17 106/61 95 Nasal Cannula 4.0 General Appearance: WD/WN, no apparent distress Head: normocephalic, atraumatic Eyes: normal inspection, EOMI ENT: normal ENT inspection, pharynx normal Neck: supple, no JVD Respiratory/Chest: chest non-tender, + decreased breath sounds (no wheezing or crackles audible - ) Cardiovascular: regular rate, rhythm, no JVD, normal peripheral pulses, + tachycardia Abdomen/GI: normal bowel sounds, non tender, soft Extremities/Musculoskelatal: + pedal edema, + pertinent finding (LE tenderness) 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, no motor/sensory deficits, alert, normal mood/affect, normal reflexes, oriented x 3 Skin: normal color, warm/dry, no rash Diagnostics Laboratory Results Results Past 24 Hours Test 10/18/16 00:14 10/18/16 01:53 Range/Units White Blood Count 19.12 4.8-10.8 K/uL Red Blood Count 3.79 4.7-6.1 M/uL Hemoglobin 10.9 14.0-18.0 g/dL Hematocrit 33.1 42-52 % Mean Corpuscular Volume 87.3 80-100 fL Mean Corpuscular Hemoglobin 28.8 25-34 pg Mean Corpuscular Hemoglobin Concent 32.9 32-36 g/dl RDW Standard Deviation 51.2 36.4-46.3 fL RDW Coefficient of Variation 15.9 11.5-14.5 % Platelet Count 299 130-400 K/uL Mean Platelet Volume 9.9 7.4-10.4 fL Prothrombin Time 42.2 9.0-12.0 SECONDS Prothromb Time International Ratio 3.7 0.9-1.1 Activated Partial Thromboplast Time 66.2 21.0-31.0 SECONDS Partial Thromboplastin Ratio 2.5 Sodium Level 135 136-145 mmol/L Potassium Level 4.0 3.5-5.1 mmol/L Chloride Level 98 98-107 mmol/L Carbon Dioxide Level 29 21-32 mmol/L Anion Gap 8.0 3-11 mmol/L Blood Urea Nitrogen 17 7-18 mg/dl Creatinine 0.77 0.60-1.40 mg/dl Est Creatinine Clear Calc Drug Dose 83.1 ml/min Estimated GFR () 108.1 Estimated GFR (Non- 93.2 BUN/Creatinine Ratio 21.4 10-20 Random Glucose 139 70-99 mg/dl Calcium Level 8.8 8.5-10.1 mg/dl Total Bilirubin 0.5 0.2-1 mg/dl Aspartate Amino Transf (AST/SGOT) 18 15-37 U/L Alanine Aminotransferase (ALT/SGPT) 24 12-78 U/L Alkaline Phosphatase 107 45-117 U/L Total Creatine Kinase 31 39-308 U/L Creatine Kinase MB < 0.5 0.5-3.6 ng/ml Creatine Kinase MB Ratio 0-3.0 Troponin I < 0.015 0-0.045 ng/ml Pro-B-Type Natriuretic Peptide 1130 0-900 pg/ml Total Protein 6.7 6.4-8.2 gm/dl Albumin 2.5 3.4-5.0 gm/dl Globulin 4.2 2.5-4.0 gm/dl Albumin/Globulin Ratio 0.6 0.9-2 Bedside Lactic Acid Venous 0.87 0.90-1.70 mmol/L Microbiology Results 10/18/16 Blood Culture, Received Pending 10/18/16 Blood Culture, Received Pending Diagnostic Radiology CXR CHF vs B/L PNM EKG Flutter - rate 100bpm - no acute ischemic changes Impression Assessment and Plan 70 y/o M w/Hx chronic atrial flutter on Coumadin, COPD - presents from a correctional facility for SOB, cough and hemoptysis over the last 2-3 days. He denies a fever or rigors. Denies CP, N/V, diarrhea or dysuria. He admits to weakness. Initial CXR suggests CHF vs B/L PNM - a CT chest is pending. Labs reveal leukocytosis and an elevated BNP. 1) Hemoptysis - pt has had a cough recently in addition to a high INR so that this may be the result of anticoagulation with irritation. He is tachycardic an has an abnormal CXR so that we will obtain a CT chest to help distingush between CHF, PNM and to r/o a mass. The pulmonology service will be contacted. If CHF is confirmed we will obtain an echo and diurese however, pressure has been in the low 90s and he does not have JVD making the diagnosis less likely. 2) COPD - we will treat for exacerbation to include antibiotics, nebs, an 02 protocol - steroids have been held pending results of the CT - no wheezing is present on exam 3) AFlutter - does not normally use rate control - tachycardia may be compensatory at present - will not treat for time being as rate has been 90- 100. Coumadin held due to hemoptysis 4) Hypothyroidism - recent normal studies - cont Synthroid. Full code - Coumadin held Total time for this admit including review of labs, meds, EKG, imaging - discussion with pt and ER attending - 37 min Level of Care Telemetry Resuscitation Status FULL RESUSCITATION VTE Prophylaxis Given or contraindicated: SCD's
[2016-10-18] MEDS ORDERED: GUAI400T44 PO (03:36)
[2016-10-18] MEDS ORDERED: LEVO75TA PO (03:37)
[2016-10-18] MEDS ORDERED: OMEP20TA PO (03:40)
[2016-10-18] MEDS ORDERED: SOTA80TA PO (03:41)
[2016-10-18] MEDS ORDERED: ACET-1311 PO (03:45)
[2016-10-18] MEDS ORDERED: ONDA8TAB6 PO (03:46)
[2016-10-18] MEDS ORDERED: ONDANSETRON 8 MG TAB PO PRN (06:30)
--- NOTE | 2016-10-18 06:30 | DIAGNOSTIC IMAGING REPORT ---
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 Subsegmental atelectasis left base. Diaphragms smooth. IMPRESSION: Congestive heart failure Electronically signed by: Domo Lucas M.D. 10/18/2016 6:29 AM Dictated Date/Time: 10/18/2016 6:28 AM
[2016-10-18] MEDS ORDERED: ALBUTEROL 0.083% NEBU SOLN 3 ML VIAL INH PRN (06:45)
[2016-10-18] MEDS ORDERED: ZOLPIDEM TARTRATE 5 MG TAB PO PRN (06:45)
[2016-10-18] MEDS ORDERED: POLYETHYLENE (MIRALAX) 17 GM PACK PO PRN (06:45)
[2016-10-18] MEDS ORDERED: ONDANSETRON INJ 2 MG/ML 2 ML VIAL IV PRN (06:45)
--- NOTE | 2016-10-18 06:51 | DIAGNOSTIC IMAGING REPORT ---
CHEST CTA for PULMONARY ARTERIES CT DOSE: 243.82 mGy.cm HISTORY: Chest pain. Dyspnea. EVAL FOR MASS, PE, PNM TECHNIQUE: Multiaxial CT images of the chest were performed following the intravenous administration of contrast to evaluate the pulmonary arteries. Maximal intensity projection images were also obtained. COMPARISON STUDY: None. FINDINGS: Moderate atherosclerotic change thoracic aorta. Study is positive for second and third of pulmonary emboli. This primarily seen in the right hemithorax. Parenchymal infiltrate right base. Consolidative change medial aspect left lower lobe. Moderate mediastinal as well as hilar adenopathy. IMPRESSION: 1. Study is positive for several right hemithoracic pulmonary emboli. 2. Parenchymal infiltrate versus developing infarct right base. 3. Consolidative infiltrate medial left lower lobe with follow-up to resolution is suggested. 4. Moderate mediastinal and hilar adenopathy as follow-up again recommended to confirm resolution Electronically signed by: Domo Lucas M.D. 10/18/2016 6:50 AM Dictated Date/Time: 10/18/2016 6:47 AM
[2016-10-18] MEDS: ALBUT/IPRATROP 3MG/0.5MG NEB 3 ML VIAL INH SCH ×3 (07:52→19:19)
[2016-10-18] MEDS ORDERED: D5NSS + 20MEQ KCL 1,000 ML IV SCH (08:00)
[2016-10-18] MEDS ORDERED: AMPICILLIN/SULBACTAM SOD INJ 3,000 MG in SODIUM CHLORIDE 0.9% 100ML 100 ML IV SCH (08:00)
[2016-10-18] MEDS: AZITHROMYCIN IV 500 MG in DEXTROSE 5% 250ML 250 ML IV SCH (08:31)
[2016-10-18] MEDS: LEVOTHYROXINE 75 MCG TAB PO SCH (08:31)
[2016-10-18] MEDS: PANTOprazole SOD 40 MG TAB PO SCH (08:32)
[2016-10-18] MEDS: GUAIFENESIN 200 MG TAB PO SCH ×3 (08:32→21:17)
[2016-10-18] MEDS: LORATADINE 10 MG TAB PO SCH (08:32)
[2016-10-18] MEDS: LOPERAMIDE HCL 2 MG CAP PO SCH ×2 (08:38→21:17)
[2016-10-18] MEDS ORDERED: SOTALOL HCL 80 MG TAB PO ONE (09:30)
[2016-10-18] MEDS ORDERED: HEPARIN 25,000 UNIT/500ML D5W 500 ML IV PRN (10:00)
[2016-10-18] MEDS ORDERED: SODIUM CHLORIDE 0.9% 250ML 250 ML IV SCH (10:00)
[2016-10-18] MEDS ORDERED: ENOXAPARIN 1 MG/KG SQ SCH (10:15)
--- NOTE | 2016-10-18 11:12 | Oncology Consultation ---
Oncology/Heme Consultation Date of Consultation: Oct 18, 2016. Attending Physician: Danyelle Reid DO Reason for Consultation: Hemoptysis Pulmonary embolism R lung base consolidation versus malignancy History of Present Illness Mr. Crook is a 70 year old prisoner with a life-long smoking history who was diagnosed in July with AFib. He was started on Coumadin for this. He had a super-therapeutic INR on 10/06 (>8), so his coumadin was held for a few days. It was subsequently restarted and he presented yesterday with an INR of 3.7. He presented with hemoptysis and a CTA revealed multiple right pulmonary emboli. It also revealed some mediastinal lymphadenopathy that has been, in retrospect, present for several years and consolidative changes in the left lower lobe that are worrisome for infection versus malignancy. He is a life-long smoker and has lost about 15 lb over the last few months. He's had an increasing cough over that time, though this was his first episode of hemoptysis. He has marked bilateral neuropathic pain in his calves. He denies any weakness, numbness, gait disturbance, or change in continence. During our visit, he was mentating clearly and was asymptomatic; however, he was markedly tachycardic (HR in the 140s) and hypotensive (MAPs in the 50s). Past Medical/Surgical History Medical Problems: (1) Atrial flutter with rapid ventricular response Status: Acute (2) Chest pain Status: Acute (3) Dizzy Status: Acute (4) Hypotension Status: Acute (5) Hypothyroid Status: Acute (6) Left chest pressure Status: Acute (7) Pulmonary embolism Status: Acute (8) Rapid atrial fibrillation Status: Acute Family History No pertinent family history Social History Smoking Status: Former Smoker Drug Use: none Marital Status: single Housing Status: other Occupation Status: other Allergies Coded Allergies: Aspirin (Verified Allergy, Unknown, 09/03/16) Procaine (Verified Allergy, Unknown, 09/03/16) Rosuvastatin (Verified Allergy, Unknown, UNKNOWN, 09/03/16) Home Medications Scheduled Aclidinium [place] (Tudorza Pressair), 1 PUFF INH BID Ciclesonide (Alvesco), 1 PUFF PO BID Guaifenesin (Guaifenesin), 400 MG PO TID Levothyroxine Sodium (Synthroid), 225 MCG PO DAILY Loperamide Hcl (Imodium), 2 MG PO BID Loratadine (Claritin), 10 MG PO DAILY Nortriptyline (Pamelor), 10 MG PO HS Omeprazole (Omeprazole), 40 MG PO DAILY Sotalol Hcl (Sotalol Hcl), 80 MG PO BID Warfarin Sodium (Coumadin), 6 MG PO HS Scheduled PRN Acetaminophen (Tylenol), 650 MG PO TID PRN for Pain or Fever Albuterol Hfa (Ventolin Hfa), 2 PUFFS INH QID PRN for SOB/Wheezing Ondansetron Hcl (Zofran), 8 MG PO TID PRN for Nausea Current Inpatient Medications Current Inpatient Medications Medications (Trade) Dose Ordered Sig/Malcolm Route Start Time Stop Time Status Last Admin Dose Admin Ioversol (Optiray 320) 125 ml UD PRN IV 10/18/16 03:15 10/22/16 03:14 Levothyroxine Sodium (Synthroid Tab) 225 mcg DAILYBB PO 10/18/16 08:30 11/17/16 08:29 10/18/16 08:31 225 MCG Loperamide HCl (Imodium Cap) 2 mg BID PO 10/18/16 09:00 11/17/16 08:59 Loratadine (Claritin Tab) 10 mg DAILY PO 10/18/16 09:00 11/17/16 08:59 10/18/16 08:32 10 MG Nortriptyline HCl (Pamelor Cap) 10 mg HS PO 10/18/16 21:00 11/17/16 20:59 Miscellaneous Information (Order Awaiting Action) 1 ea QS N/A 10/18/16 08:00 11/17/16 07:59 Guaifenesin (Organidin Nr Tab) 400 mg TID PO 10/18/16 09:00 11/17/16 08:59 10/18/16 08:32 400 MG Pantoprazole Sodium (Protonix Tab) 40 mg DAILY PO 10/18/16 09:00 11/17/16 08:59 10/18/16 08:32 40 MG Acetaminophen (Tylenol Tab) 650 mg Q4H PRN PO 10/18/16 06:45 11/17/16 06:44 Zolpidem Tartrate (Ambien Tab) 5 mg HSZ PRN PO 10/18/16 06:45 11/17/16 06:44 Ondansetron HCl (Zofran Inj) 4 mg Q6H PRN IV 10/18/16 06:45 11/17/16 06:44 Morphine Sulfate (MoRPHine SULFATE INJ) 2 mg Q30M PRN IV 10/18/16 06:45 11/01/16 06:44 Polyethylene 17 gm 17 gm DAILY PRN PO 10/18/16 06:45 11/17/16 06:44 Ampicillin Sodium/ Sulbactam Sodium 3000 mg/Sodium Chloride 108 ml @ 200 mls/hr Q6H IV 10/18/16 08:00 10/25/16 07:59 10/18/16 08:29 200 MLS/HR Azithromycin/ Dextrose (Zithromax IV/D5 250ml) 255 ml @ 125 mls/hr DAILY@0900 IV 10/18/16 09:00 10/25/16 08:59 10/18/16 08:31 125 MLS/HR Albuterol/ Ipratropium (Duoneb) 3 ml Q6R INH 10/18/16 09:00 11/17/16 08:59 Albuterol Sulfate 2.5 mg 2.5 mg Q4H PRN INH 10/18/16 06:45 11/17/16 06:44 Potassium Chloride/Dextrose/ Sod Cl (D5nss + 20meq KCl) 1,000 ml @ 75 mls/hr [id number] IV 10/18/16 08:00 10/18/16 21:19 10/18/16 08:26 75 MLS/HR Enoxaparin Sodium (Lovenox 1 Mg/Kg) 1 ea Q12H SQ 10/18/16 10:15 11/17/16 10:14 UNV Review of Systems Constitutional: + fatigue, + weight loss, No chills, No fever Eyes: No worsening of vision ENT: No unusual epistaxis Respiratory: + cough, + hemoptysis, + shortness of breath Cardiovascular: No chest pain, No palpitations Abdomen: No nausea, No pain, No vomiting Musculoskeletal: No joint pain Genitourinary - Male: No dysuria, No hematuria Neurologic: No numbness/tingling, No weakness Physical Exam Date Time Temp Pulse Resp B/P Pulse Ox O2 Delivery O2 Flow Rate FiO2 10/18/16 07:52 37.0 91 16 91/62 99 Nasal Cannula 4.0 10/18/16 07:01 90 26 94/57 95 10/18/16 06:45 95 Nasal Cannula 4.0 10/18/16 06:01 91 28 95/51 95 Nasal Cannula 4.0 10/18/16 05:14 92 24 93/40 93 Nasal Cannula 4.0 10/18/16 04:57 90 27 85/46 95 Nasal Cannula 4.0 10/18/16 03:15 91 10/18/16 03:01 88 28 92/56 97 Nasal Cannula 4.0 10/18/16 02:01 89 26 92/60 97 Nasal Cannula 4.0 10/18/16 01:25 89 30 98/62 94 Nasal Cannula 4.0 10/18/16 01:01 89 22 99/59 100 Nasal Cannula 4.0 10/18/16 00:03 98 Nasal Cannula 4.0 10/18/16 00:02 Nasal Cannula 4.0 10/18/16 00:02 95 Nasal Cannula 4.0 10/18/16 00:02 36.8 132 19 106/61 98 Nasal Cannula 4.0 10/18/16 00:02 134 10/18/16 00:01 99 17 106/61 95 Nasal Cannula 4.0 General Appearance: no apparent distress, + thin Eyes: EOMI, sclerae normal Neck: no JVD Respiratory/Chest: chest non-tender, lungs clear Cardiovascular: no edema, + tachycardia Abdomen/GI: normal bowel sounds, non tender, soft Extremities/Musculoskelatal: + pertinent finding (very tender to palpation in his feet bilaterally. Strength exam limited by this tenderness, but was at least 4+/5 bilaterally in dorsi- and plantar flexion) Neurologic/Psych: alert, oriented x 3 Skin: no rash Lymphatic: no adenopathy Laboratory Results Last 24 Hours Test 10/18/16 00:14 10/18/16 01:53 White Blood Count 19.12 K/uL Red Blood Count 3.79 M/uL Hemoglobin 10.9 g/dL Hematocrit 33.1 % Mean Corpuscular Volume 87.3 fL Mean Corpuscular Hemoglobin 28.8 pg Mean Corpuscular Hemoglobin Concent 32.9 g/dl RDW Standard Deviation 51.2 fL RDW Coefficient of Variation 15.9 % Platelet Count 299 K/uL Mean Platelet Volume 9.9 fL Prothrombin Time 42.2 SECONDS Prothromb Time International Ratio 3.7 Activated Partial Thromboplast Time 66.2 SECONDS Partial Thromboplastin Ratio 2.5 Sodium Level 135 mmol/L Potassium Level 4.0 mmol/L Chloride Level 98 mmol/L Carbon Dioxide Level 29 mmol/L Anion Gap 8.0 mmol/L Blood Urea Nitrogen 17 mg/dl Creatinine 0.77 mg/dl Est Creatinine Clear Calc Drug Dose 83.1 ml/min Estimated GFR () 108.1 Estimated GFR (Non- 93.2 BUN/Creatinine Ratio 21.4 Random Glucose 139 mg/dl Calcium Level 8.8 mg/dl Total Bilirubin 0.5 mg/dl Aspartate Amino Transf (AST/SGOT) 18 U/L Alanine Aminotransferase (ALT/SGPT) 24 U/L Alkaline Phosphatase 107 U/L Total Creatine Kinase 31 U/L Creatine Kinase MB < 0.5 ng/ml Creatine Kinase MB Ratio Troponin I < 0.015 ng/ml Pro-B-Type Natriuretic Peptide 1130 pg/ml Total Protein 6.7 gm/dl Albumin 2.5 gm/dl Globulin 4.2 gm/dl Albumin/Globulin Ratio 0.6 Bedside Lactic Acid Venous 0.87 mmol/L Assessment & Plan Mr. Crook is a 70 year old man with recently diagnosed atrial fibrillation, now on Coumadin. He presents with tachycardia and hemoptysis and was found to have multiple small right PEs. He is ordered for a LE venous doppler. He was on Coumadin at the time of the PE event and was, if anything, supratherapeutic. Coumadin failure is uncommon but not unheard of. It is most commonly seen in patients with a strong thrombotic risk. I suspect he has an underlying malignancy as his thrombotic risk. In light of that, I would suggest anticoagulation with Lovenox. Although his INR is >2, he developed a thrombosis with this INR, demonstrating that it is not protective in his case. His episode of hemoptysis was small-volume. Though massive hemoptysis would be a devastating outcome, a recurrent PE would be as well, especially given his borderline hemodynamic status. As a result, I feel the risk of bleeding is outweighed by the risk of recurrent thrombosis and would anticoagulate him. With regard to the suspected LLL malignancy, Dr. Moreno has been consulted and is planning a diagnostic procedure. Should he prove to have a lung cancer, we will need complete staging imaging to rule out metastatic disease. With regard to his unstable tachyarrhythmia, Dr. Reid and her resident were at the bedside managing this acute issue as I was leaving. I will defer management of this to them.
[2016-10-18] MEDS: ENOXAPARIN 60 MG/0.6 ML SYR SQ SCH ×2 (11:19→23:20)
--- NOTE | 2016-10-18 12:08 | Family Medicine Progress Note ---
Progress Note Date of Service Oct 18, 2016. Subjective Pt evaluation today including: conversation w/ patient, physical exam, chart review, lab review Pain: Denies Voiding: no voiding problems Patient was seen at the bedside. He was comfortably lying down on his bed. He states that for about 2 days he is been coughing and have SOB. He also noticed small amount blood mixed with the sputum. Complains of b/l leg pain for about 8 months. Denies any chest pain, fever, nausea, vomiting, or abdominal pain. Also complains of weight loss over few months. Patient was recently admitted to the hospital in Sep for Aflutter with RVR. He was discharged on 09/05/16 on Sotalol 80mg BID. Constitutional: + weight loss, No chills, No fever Respiratory: + cough, + hemoptysis, + shortness of breath, + sputum, No wheezing Cardiovascular: No chest pain, No edema Abdomen: No diarrhea, No nausea, No pain, No vomiting Musculoskeletal: + problem reported (b/l leg pain) Male : No dysuria Skin: No rash Medications Current Inpatient Medications Medications (Trade) Dose Ordered Sig/Malcolm Route Start Time Stop Time Status Last Admin Dose Admin Ioversol (Optiray 320) 125 ml UD PRN IV 10/18/16 03:15 10/22/16 03:14 Levothyroxine Sodium (Synthroid Tab) 225 mcg DAILYBB PO 10/18/16 08:30 11/17/16 08:29 10/18/16 08:31 225 MCG Loperamide HCl (Imodium Cap) 2 mg BID PO 10/18/16 09:00 11/17/16 08:59 Loratadine (Claritin Tab) 10 mg DAILY PO 10/18/16 09:00 11/17/16 08:59 10/18/16 08:32 10 MG Nortriptyline HCl (Pamelor Cap) 10 mg HS PO 10/18/16 21:00 11/17/16 20:59 Miscellaneous Information (Order Awaiting Action) 1 ea QS N/A 10/18/16 08:00 11/17/16 07:59 Guaifenesin (Organidin Nr Tab) 400 mg TID PO 10/18/16 09:00 11/17/16 08:59 10/18/16 08:32 400 MG Pantoprazole Sodium (Protonix Tab) 40 mg DAILY PO 10/18/16 09:00 11/17/16 08:59 10/18/16 08:32 40 MG Acetaminophen (Tylenol Tab) 650 mg Q4H PRN PO 10/18/16 06:45 11/17/16 06:44 Zolpidem Tartrate (Ambien Tab) 5 mg HSZ PRN PO 10/18/16 06:45 11/17/16 06:44 Ondansetron HCl (Zofran Inj) 4 mg Q6H PRN IV 10/18/16 06:45 11/17/16 06:44 Morphine Sulfate (MoRPHine SULFATE INJ) 2 mg Q30M PRN IV 10/18/16 06:45 11/01/16 06:44 Polyethylene 17 gm 17 gm DAILY PRN PO 10/18/16 06:45 11/17/16 06:44 Ampicillin Sodium/ Sulbactam Sodium 3000 mg/Sodium Chloride 108 ml @ 200 mls/hr Q6H IV 10/18/16 08:00 10/25/16 07:59 10/18/16 08:29 200 MLS/HR Azithromycin/ Dextrose (Zithromax IV/D5 250ml) 255 ml @ 125 mls/hr DAILY@0900 IV 10/18/16 09:00 10/25/16 08:59 10/18/16 08:31 125 MLS/HR Albuterol/ Ipratropium (Duoneb) 3 ml Q6R INH 10/18/16 09:00 11/17/16 08:59 Albuterol Sulfate 2.5 mg 2.5 mg Q4H PRN INH 10/18/16 06:45 11/17/16 06:44 Potassium Chloride/Dextrose/ Sod Cl 1,000 ml @ 75 mls/hr [id number] IV 10/18/16 08:00 10/18/16 21:19 10/18/16 08:26 75 MLS/HR Sodium Chloride (Nss 250ml) 250 ml @ 0 mls/hr Q0M IV 10/18/16 10:00 11/17/16 09:59 UNV Enoxaparin Sodium (Lovenox 1 Mg/Kg) 1 ea Q12H SQ 10/18/16 10:15 11/17/16 10:14 UNV Objective Vital Signs Date Time Temp Pulse Resp B/P Pulse Ox O2 Delivery O2 Flow Rate FiO2 10/18/16 07:52 37.0 91 16 91/62 99 Nasal Cannula 4.0 10/18/16 07:01 90 26 94/57 95 10/18/16 06:45 95 Nasal Cannula 4.0 10/18/16 06:01 91 28 95/51 95 Nasal Cannula 4.0 10/18/16 05:14 92 24 93/40 93 Nasal Cannula 4.0 10/18/16 04:57 90 27 85/46 95 Nasal Cannula 4.0 10/18/16 03:15 91 10/18/16 03:01 88 28 92/56 97 Nasal Cannula 4.0 10/18/16 02:01 89 26 92/60 97 Nasal Cannula 4.0 10/18/16 01:25 89 30 98/62 94 Nasal Cannula 4.0 10/18/16 01:01 89 22 99/59 100 Nasal Cannula 4.0 10/18/16 00:03 98 Nasal Cannula 4.0 10/18/16 00:02 Nasal Cannula 4.0 10/18/16 00:02 95 Nasal Cannula 4.0 10/18/16 00:02 36.8 132 19 106/61 98 Nasal Cannula 4.0 10/18/16 00:02 134 10/18/16 00:01 99 17 106/61 95 Nasal Cannula 4.0 Physical Exam General Appearance: no apparent distress, + thin Neck: supple, trachea midline Respiratory/Chest: chest non-tender, no respiratory distress, + decreased breath sounds Cardiovascular: regular rate, rhythm, no edema, + tachycardia Abdomen: normal bowel sounds, non tender, soft Extremities: no pedal edema, + pertinent finding (very tender on palpation b/l lower extremities ) Neurologic/Psychiatric: alert, normal mood/affect, oriented x 3 Skin: normal color, warm/dry, no rash Laboratory Results Results Past 24 Hours Test 10/18/16 00:14 10/18/16 01:53 Range/Units White Blood Count 19.12 4.8-10.8 K/uL Red Blood Count 3.79 4.7-6.1 M/uL Hemoglobin 10.9 14.0-18.0 g/dL Hematocrit 33.1 42-52 % Mean Corpuscular Volume 87.3 80-100 fL Mean Corpuscular Hemoglobin 28.8 25-34 pg Mean Corpuscular Hemoglobin Concent 32.9 32-36 g/dl RDW Standard Deviation 51.2 36.4-46.3 fL RDW Coefficient of Variation 15.9 11.5-14.5 % Platelet Count 299 130-400 K/uL Mean Platelet Volume 9.9 7.4-10.4 fL Prothrombin Time 42.2 9.0-12.0 SECONDS Prothromb Time International Ratio 3.7 0.9-1.1 Activated Partial Thromboplast Time 66.2 21.0-31.0 SECONDS Partial Thromboplastin Ratio 2.5 Sodium Level 135 136-145 mmol/L Potassium Level 4.0 3.5-5.1 mmol/L Chloride Level 98 98-107 mmol/L Carbon Dioxide Level 29 21-32 mmol/L Anion Gap 8.0 3-11 mmol/L Blood Urea Nitrogen 17 7-18 mg/dl Creatinine 0.77 0.60-1.40 mg/dl Est Creatinine Clear Calc Drug Dose 83.1 ml/min Estimated GFR () 108.1 Estimated GFR (Non- 93.2 BUN/Creatinine Ratio 21.4 10-20 Random Glucose 139 70-99 mg/dl Calcium Level 8.8 8.5-10.1 mg/dl Total Bilirubin 0.5 0.2-1 mg/dl Aspartate Amino Transf (AST/SGOT) 18 15-37 U/L Alanine Aminotransferase (ALT/SGPT) 24 12-78 U/L Alkaline Phosphatase 107 45-117 U/L Total Creatine Kinase 31 39-308 U/L Creatine Kinase MB < 0.5 0.5-3.6 ng/ml Creatine Kinase MB Ratio 0-3.0 Troponin I < 0.015 0-0.045 ng/ml Pro-B-Type Natriuretic Peptide 1130 0-900 pg/ml Total Protein 6.7 6.4-8.2 gm/dl Albumin 2.5 3.4-5.0 gm/dl Globulin 4.2 2.5-4.0 gm/dl Albumin/Globulin Ratio 0.6 0.9-2 Bedside Lactic Acid Venous 0.87 0.90-1.70 mmol/L Microbiology Results 10/18/16 Blood Culture, Received Pending 10/18/16 Blood Culture, Received Pending 10/18/16 MRSA DNA Surveillance Screen - Final, Complete Specimen Negative for MRSA by DNA Probe Assessment and Plan This is a 70 y/o male with PMHx of chronic atrial flutter on Coumadin, COPD and smoking presented from the correctional [facility] to the hospital complaining of SOB, cough and hemoptysis X2days. CTA of the chest showed multiple right PE and consolidation of the LLL. Patient is currently asymptomatic. 1. Pulmonary Embolism - Despite on Coumadin and high INR (3.7), patient had several PE. Given the history and imaging finding patient could have malignancy of the lung, which is making him hypercoagulable. - CTA of the chest showed: 1. Study is positive for several right hemithoracic pulmonary emboli. 2. Parenchymal infiltrate versus developing infarct right base. 3. Consolidative infiltrate medial left lower lobe with follow-up to resolution is suggested. 4. Moderate mediastinal and hilar adenopathy as follow-up again recommended to confirm resolution - Last CT of the chest was done 09/2010 also showed prominent mediastinal and hilar nodes; however, consolidation on the LLL is a new finding. - Patient is started on heparin drip - Venous doppler of the Lower ext is ordered - pending - Pulmonary was consulted and will continue to appreciate their recommendation 2. Hemoptysis - Could be 2/2 PE vs aspiration pneumonia vs malignancy - Patient is asymptomatic otherwise - Patient was started on Ceftriaxone and Flagly by Pulmonary to cover the possible aspiration pneumonia - BCx is pending and nasal swab for MRSA is negative - Pulmonary on board and seen by Dr. Moreno. No plan for immediate bronchoscopy, possible once patient is stable. - Heme/Onc is also on board and will continue to appreciate their recommendation 3. Pneumonia - Currently on Day #1 Ceftriaxone and Flagyl to cover aspiration pneumonia - Flutter valve, chest physiotherapy and incentive spirometry - Start him on Dornase Neb - Pulmonary on board and will continue to appreciate their recommendations. 3. Chronic Atrial Flutter/Atrial fibrillation with RVR - Patient was tachycardia (on 140s) but BP was on the lower side. Could be 2 /2 PE - Given bolus of IVF - Stat EKG showed sinus tachycardia - Last ECHO in Jul 2016 showed Normal EF and mitral valve calcification - Continue to hold Sotalol given low blood pressure - Coumadin on hold. Patient is currently on Heparin - Continue to observe in Tele 4. COPD Exacerbation with hypoxia - Patient is currently on 4L of NC - Will hold off to steroid given no wheezing - C/w Duoneb Q6h and albuterol prn 5. Hypothyroidism - Lab works done in Sep showed normal TSH and T4 - C/w Synthroid 225mcg 6. DVT Prophylaxis - Heparin drip, Lovenox 7. Code Status - Full code 70 y/o M w/Hx chronic atrial flutter on Coumadin, COPD - presents from a correctional facility for SOB, cough and hemoptysis over the last 2-3 days. He denies a fever or rigors. Denies CP, N/V, diarrhea or dysuria. He admits to weakness. Initial CXR suggests CHF vs B/L PNM - a CT chest is pending. Labs reveal leukocytosis and an elevated BNP. 1) Hemoptysis - pt has had a cough recently in addition to a high INR so that this may be the result of anticoagulation with irritation. He is tachycardic an has an abnormal CXR so that we will obtain a CT chest to help distingush between CHF, PNM and to r/o a mass. The pulmonology service will be contacted. If CHF is confirmed we will obtain an echo and diurese however, pressure has been in the low 90s and he does not have JVD making the diagnosis less likely. 2) COPD - we will treat for exacerbation to include antibiotics, nebs, an 02 protocol - steroids have been held pending results of the CT - no wheezing is present on exam 3) AFlutter - does not normally use rate control - tachycardia may be compensatory at present - will not treat for time being as rate has been 90- 100. Coumadin held due to hemoptysis 4) Hypothyroidism - recent normal studies - cont Synthroid. Reviewed: Pt Seen/Exam by Me History Pt's main concern is his b/l foot pain. This is not new for him, but he states this is only issue at present. No SOB on O2. Denies chest pain. Agree with HPI/ROS as noted. General Appearance: WD/WN, no apparent distress Respiratory: no respiratory distress, decreased breath sounds Cardiovascular: normal peripheral pulses, irregularly irregular Gastrointestinal: non tender, soft Extremities: non-tender, no pedal edema Neurologic/Psychiatric: alert, normal mood/affect Skin Characteristics: normal color, warm/dry Assessment/Plan Resident Physician Supervision Note: I discussed the case with the resident and agree with the findings and plan as documented in the note. Any exceptions or clarifications are listed here: Resident called with pt in afib with hypoTN. Plan discussed with resident PE has not been tx on admission, assuming due to hemoptysis and elevated INR and seems likely to be the cause of current hemodynamic instability Sotalol was held on admission, likely related to hypoTN however BP systolic in the 70s during this event and hesitant to give this or any other medication that will further decrease his BP given likely cause of this instability is untx PE. Pt is asx with this Will start anticoagulation at this time with a small fluid bolus and monitor Concern for likely cancer related PE, pulm and hem/onc following Possible bronch once pt is stable, can also be done as outpt if needed Spent roughly 65 minutes assessing pt, discussing plans with resident and consultants Documented By: Danyelle Reid
[2016-10-18] MEDS: ACETAMINOPHEN 325 MG TAB PO PRN ×2 (13:03→21:18)
--- NOTE | 2016-10-18 13:09 | Pulmonary Consultation ---
History General Date of Service: Oct 18, 2016. Stated Complaint: Pulmonary Embolism HPI The patient is a 70 year old male who presents to [facility] with complaints of Pulmonary Embolism. The patient's primary care provider is Frances DOHERTY. 70-year-old male admitted with progressive shortness of breath over the previous 3-4 days and notable hemoptysis. At the time of my interview the patient notes dyspnea at rest but no active hemoptysis. He denies: [place], classic cardiac chest pain, progressive weight loss, history of aspiration, fevers or chills. He has been experiencing more subtle progressive shortness of breath over the last 12-6 months and notes that his best in the last 2-3 months he can walk 300 feet. Echo 07/28/2016: 1. LV: EF=55-60%, function WNL 2. RV: borderline enlargement, mild RV dysfunction, PASP 45-50 mmHg. 3. AV: Mod sclerosis, without significant stenosis, Trace AI. 4. MR: Calcified, fixed mass on anterior mitral valve leaflet 5. RA: WNL 6. Compared to 10/19/2010: worsening calcified thickening of anterior MV leaflet ILENE 07/30/2016: 1. LV: WNL, EF=55-60% 2. RV: Borderline dilated, grossly normal function 3. MV: calcified, fixed mass involving A2 segment of anterior MV, Trace MR 4. AV: Moderate sclerosis. 5. TR: Mild 6. No evidence of endocarditis 7. Mild descending aorta atherosclerotic plaque Thoracic CTA (10/18/16) compared to (10/18/2010) 1.New: (b) bronchiescatsis lower lobes with opacification/obstgruction of the LLL 2.New: 2nd and 3rd generation PE noted 3.Mediastianl adenopthy: L4, 7 4.Emphysematous changes 5.Azygous lobe Historian: patient, EMS Review of Systems Constitutional: reports: no symptoms, weakness Eyes: reports: no symptoms ENT: reports: no symptoms Cardiovascular: reports: no symptoms Respiratory: reports: as stated in HPI Gastrointestinal: reports: no symptoms Genitourinary - Male: reports: no symptoms Musculoskeletal: reports: no symptoms Integumentary: reports: no symptoms Neurologic: reports: no symptoms Psychiatric: reports: no symptoms Endocrine: no symptoms Hematologic / Lymphatic: no symptoms Allergic / Immunologic: no symptoms Past Medical History Past Medical History: 1. A-Flutter with RVR (admitted: 07/27- and 09/03-10/2016) 2. Asthma/COPD: 3. Hypothyroidism 4. PAD 5. OA Family History No pertinent family history Social History Hx Tobacco Use In Past Year?: Yes (2 pack/day 20+ years) Smoking Status: Former Smoker (34-lcit-ahjc history) Marital status: single Housing status: other Occupational Status: other Immunizations History of Influenza Vaccine: Yes History of Tetanus Vaccine?: Yes History of Pneumococcal: Yes History of Hepatitis B Vaccine: Yes History of MDRO History of MDRO: No Allergies Coded Allergies: Aspirin (Verified Allergy, Unknown, 09/03/16) Procaine (Verified Allergy, Unknown, 09/03/16) Rosuvastatin (Verified Allergy, Unknown, UNKNOWN, 09/03/16) Current Medications Reported Home Medications Medications Dose Route/Sig Max Daily Dose Days Date Category Dose Instructions Zofran (Ondansetron HCl) 8 Mg Tab 8 Mg PO TID PRN 10/18/16 Reported Tylenol (Acetaminophen) 325 Mg Tab 650 Mg PO TID PRN 10/18/16 Reported Sotalol Hcl 80 Mg Tab 80 Mg PO BID 10/18/16 Reported Omeprazole 20 Mg Tab 40 Mg PO DAILY 10/18/16 Reported Synthroid (Levothyroxine Sodium) 75 Mcg Tab 225 Mcg PO DAILY 10/18/16 Reported 3 TABLETS DAILY Guaifenesin 400 Mg Tab 400 Mg PO TID 10/18/16 Reported Coumadin (Warfarin Sodium) 6 Mg Tab 6 Mg PO HS 09/03/16 Reported Pamelor (Nortriptyline HCl) 10 Mg Cap 10 Mg PO HS 09/03/16 Reported CRUSH Tudorza Pressair (Aclidinium [place]) 400 Mcg/Act Aer 1 Puff INH BID 08/22/16 Reported Imodium (Loperamide HCl) 2 Mg Cap 2 Mg PO BID 07/28/16 Reported [place]ves[place] (Ciclesonide) 160 Mcg/Act Aer 1 Puff PO BID 07/28/16 Reported Ventolin Hfa (Albuterol) 200 Puffs/63086 Mcg Aers 2 Puffs INH QID PRN 07/28/16 Reported Claritin (Loratadine) 10 Mg Tab 10 Mg PO DAILY 07/28/16 Reported Physical Physical Exam Vital Signs: Date Time Temp Pulse Resp B/P Pulse Ox O2 Delivery O2 Flow Rate FiO2 10/18/16 11:22 100 22 95 Nasal Cannula 4.0 10/18/16 07:52 37.0 91 16 91/62 99 Nasal Cannula 4.0 10/18/16 07:01 90 26 94/57 95 10/18/16 06:45 95 Nasal Cannula 4.0 10/18/16 06:01 91 28 95/51 95 Nasal Cannula 4.0 10/18/16 05:14 92 24 93/40 93 Nasal Cannula 4.0 10/18/16 04:57 90 27 85/46 95 Nasal Cannula 4.0 10/18/16 03:15 91 10/18/16 03:01 88 28 92/56 97 Nasal Cannula 4.0 10/18/16 02:01 89 26 92/60 97 Nasal Cannula 4.0 10/18/16 01:25 89 30 98/62 94 Nasal Cannula 4.0 10/18/16 01:01 89 22 99/59 100 Nasal Cannula 4.0 10/18/16 00:03 98 Nasal Cannula 4.0 10/18/16 00:02 Nasal Cannula 4.0 10/18/16 00:02 95 Nasal Cannula 4.0 10/18/16 00:02 36.8 132 19 106/61 98 Nasal Cannula 4.0 10/18/16 00:02 134 10/18/16 00:01 99 17 106/61 95 Nasal Cannula 4.0 General Appearance: NO APPARENT DISTRESS, cachetic Head: NORMOCEPHALIC, ATRAUMATIC Eyes: PERRLA, NO DISCHARGE, EOMI, SCLERAE NORMAL ENT: NORMAL EAR EXAM, NORMAL NASAL EXAM, NORMAL MOUTH EXAM, NORMAL THROAT EXAM , other (no signs of dental caries) Neck: NORMAL RANGE OF MOTION, NO TENDERNESS, TRACHEA MIDLINE Respiratory: other (mild expiratory wheezing bilaterally with notable decreased breath sounds/dullness to percussion left lower lobe posterior subsegment) Cardiovasular: irregular rate, abnormal rhythm, other (tachycardic) Abdomen: NON TENDER, NORMAL BOWEL SOUNDS, NO REBOUND, NO MASSES, NO GUARDING, NO ORGANOMEGALY Genitourinary - Male: EXTERNAL GENITALIA NORMAL Back: NORMAL INSPECTION, NO MIDLINE TENDERNESS, NO CVA TENDERNESS, NO PARAVERTEBRAL TTP Upper Extremities: NO EDEMA, NO DEFORMITY, NORMAL ROM Lower Extremities: NO EDEMA, NO DEFORMITY, NORMAL ROM Pulses: carotid (R) (2+), carotid (L) (2+), dorsalis pedis (R) (1+), dorsalis pedis (L) (1+) Neuro: ALERT, ORIENTED x 3, NORMAL MOTOR EXAM, NORMAL SENSATION, NORMAL CEREBELLAR EXAM Reflexes: biceps (R) (2+), bicpes (L) (2+) Babinski Testing: right (downgoing), left (downgoing) Psychiatric: NORMAL AFFECT, NO SUICIDAL IDEATION, CONTRACTS FOR SAFETY Diagnostics Labs Results Past 24 Hours Test 10/18/16 00:14 10/18/16 01:53 Range/Units White Blood Count 19.12 4.8-10.8 K/uL Red Blood Count 3.79 4.7-6.1 M/uL Hemoglobin 10.9 14.0-18.0 g/dL Hematocrit 33.1 42-52 % Mean Corpuscular Volume 87.3 80-100 fL Mean Corpuscular Hemoglobin 28.8 25-34 pg Mean Corpuscular Hemoglobin Concent 32.9 32-36 g/dl RDW Standard Deviation 51.2 36.4-46.3 fL RDW Coefficient of Variation 15.9 11.5-14.5 % Platelet Count 299 130-400 K/uL Mean Platelet Volume 9.9 7.4-10.4 fL Prothrombin Time 42.2 9.0-12.0 SECONDS Prothromb Time International Ratio 3.7 0.9-1.1 Activated Partial Thromboplast Time 66.2 21.0-31.0 SECONDS Partial Thromboplastin Ratio 2.5 Sodium Level 135 136-145 mmol/L Potassium Level 4.0 3.5-5.1 mmol/L Chloride Level 98 98-107 mmol/L Carbon Dioxide Level 29 21-32 mmol/L Anion Gap 8.0 3-11 mmol/L Blood Urea Nitrogen 17 7-18 mg/dl Creatinine 0.77 0.60-1.40 mg/dl Est Creatinine Clear Calc Drug Dose 83.1 ml/min Estimated GFR () 108.1 Estimated GFR (Non- 93.2 BUN/Creatinine Ratio 21.4 10-20 Random Glucose 139 70-99 mg/dl Calcium Level 8.8 8.5-10.1 mg/dl Total Bilirubin 0.5 0.2-1 mg/dl Aspartate Amino Transf (AST/SGOT) 18 15-37 U/L Alanine Aminotransferase (ALT/SGPT) 24 12-78 U/L Alkaline Phosphatase 107 45-117 U/L Total Creatine Kinase 31 39-308 U/L Creatine Kinase MB < 0.5 0.5-3.6 ng/ml Creatine Kinase MB Ratio 0-3.0 Troponin I < 0.015 0-0.045 ng/ml Pro-B-Type Natriuretic Peptide 1130 0-900 pg/ml Total Protein 6.7 6.4-8.2 gm/dl Albumin 2.5 3.4-5.0 gm/dl Globulin 4.2 2.5-4.0 gm/dl Albumin/Globulin Ratio 0.6 0.9-2 Bedside Lactic Acid Venous 0.87 0.90-1.70 mmol/L Microbiology Results 10/18/16 Blood Culture, Received Pending 10/18/16 Blood Culture, Received Pending 10/18/16 MRSA DNA Surveillance Screen - Final, Complete Specimen Negative for MRSA by DNA Probe Diagnostic Radiology Thoracic CTA (10/18/16) compared to (10/18/2010) 1.New: (b) bronchiescatsis lower lobes with opacification/obstgruction of the LLL 2.New: 2nd and 3rd generation PE noted 3.Mediastianl adenopthy: L4, 7 4.Emphysematous changes 5.Azygous lobe EKG EKG: Normal sinus rhythm Telemetry: tachycardia rate 146 Impression Assessment and Plan 8-year-old male admitted with progressive dyspnea on exertion and workup showing collapse of the left lower lobe posterior subsegment currently in atrial fibrillation with RVR: #1 Pulmonary Parenchyma: Patient has collapse possible obstruction of the left lower lobe lateral and posterior subsegment's. This CAT scan also notes continued mediastinal adenopathy seen on previous CAT scan in 2010. At this time I suggest we initiate dornase, chest physiotherapy and transfers medications to ceftriaxone and Flagyl for better aspiration coverage. If we are unable to reach me in the patient's lung bronchoscopy isn't warranted. At this time the patient's arrhythmia and RVR placement high risk for. Procedural complications. #2 Pulmonary Embolism: Patient has been treated with Coumadin and Plavix for atrial fibrillation/peripheral arterial disease with his INR supra -therapeutic at 3.7. It appears he had breakthrough embolism highly suggestive of possible underlying malignancy especially this chronic history of tobacco use at [address] Julio Murphy of oncology is currently following we will leave anticoagulation to his discretion. #3 Pneumonia: Patient does not clinically present with aspiration but as he has bilateral posterior lower lobe infiltrates left greater than right: Initiate aspiration coverage with ceftriaxone and Flagyl with aggressive pulmonary toilet flutter valve, chest physiotherapy, incentive spirometry and dornase nebulizers. The patient is able to also send off expectorated sputum for evaluation. The patient is unable to reach them lung bronchoscopy would be warranted. As we would not be obtaining tissue at that time anticoagulation can be continued. #4 COPD: Patient does show signs of emphysema on CT with a long smoking history high clinical suspicion. This time he does not appear to be an emphysematous exacerbation we'll hold off on initiation of steroids.
[2016-10-18] MEDS: CEFTRIAXONE SOD INJ 1 GM in DEXTROSE 5% ADD-VANTAGE 50ML 50 ML IV SCH (14:40)
--- NOTE | 2016-10-18 16:04 | DIAGNOSTIC IMAGING REPORT ---
BILATERAL LOWER EXTREMITY VENOUS DOPPLER HISTORY: Pain. Edema. dv COMPARISON STUDY: None. FINDINGS: The right leg shows normal venous flow throughout. Compressibility and augmentation characteristics are unremarkable. Left leg is remarkable for deep venous thrombosis involving left popliteal vein as well as the compared peroneal veins inferior to the knee. IMPRESSION: 1. Acute deep venous thrombosis left leg, involving the left popliteal vein and peroneal veins. 2. Negative right leg. Electronically signed by: Domo Lucas M.D. 10/18/2016 4:02 PM Dictated Date/Time: 10/18/2016 4:01 PM
[2016-10-18] MEDS: METRONIDAZOLE / NSS 500 MG in PREMIXED NSS 100 ML IV SCH ×2 (17:55→23:20)
[2016-10-18] MEDS: DORNASE ALFA (2500U) 2.5MG/2.5ML INH SCH (19:31)
[2016-10-18] MEDS ORDERED: WARFARIN SOD 6 MG TAB PO SCH (21:00)
[2016-10-18] MEDS ORDERED: SOTALOL HCL 80 MG TAB PO SCH (21:00)
[2016-10-18] MEDS: NORTRIPTYLINE HCL 10 MG CAP PO SCH (21:17)
[2016-10-18] MEDS: MoRPHine SULFATE 2 MG/ML CARP IV PRN (21:18)
[2016-10-19] VITALS (10 sets, daily range): BP systolic 90–125; BP diastolic 44–73; PULSE 86–117; TEMP 36.7–36.9; O2SAT 91–97
[2016-10-19] MEDS: ALBUT/IPRATROP 3MG/0.5MG NEB 3 ML VIAL INH SCH ×4 (02:13→19:42)
[2016-10-19] MEDS: MoRPHine SULFATE 2 MG/ML CARP IV PRN ×3 (03:47→23:07)
[2016-10-19 05:38] LABS: HEMATOCRIT 34.2 % (42-52); MEAN CORPUSCULAR HEMOGLOBIN 28.4 pg (25-34); MEAN CORPUSCULAR HGB CONC 31.6 g/dl (32-36); PLATELET COUNT 254 K/uL (130-400); WHITE BLOOD COUNT 9.43 K/uL (4.8-10.8)
[2016-10-19 06:02] LABS: PROTHROMBIN TIME (PATIENT) 46.3 SECONDS (9.0-12.0)
[2016-10-19 06:03] LABS: INR 4.1 (0.9-1.1)
[2016-10-19] MEDS: METRONIDAZOLE / NSS 500 MG in PREMIXED NSS 100 ML IV SCH (06:53)
[2016-10-19] MEDS: LEVOTHYROXINE 75 MCG TAB PO SCH (06:53)
[2016-10-19] MEDS: DORNASE ALFA (2500U) 2.5MG/2.5ML INH SCH (07:27)
[2016-10-19] MEDS: LORATADINE 10 MG TAB PO SCH (08:38)
[2016-10-19] MEDS: LOPERAMIDE HCL 2 MG CAP PO SCH ×2 (08:38→19:57)
[2016-10-19] MEDS: AZITHROMYCIN IV 500 MG in DEXTROSE 5% 250ML 250 ML IV SCH (08:38)
[2016-10-19] MEDS: PANTOprazole SOD 40 MG TAB PO SCH (08:38)
[2016-10-19] MEDS: GUAIFENESIN 200 MG TAB PO SCH ×3 (08:38→19:56)
[2016-10-19] MEDS: ACETAMINOPHEN 325 MG TAB PO PRN ×3 (08:39→20:00)
--- NOTE | 2016-10-19 08:49 | Hematology/Oncology Prog Note ---
Hematology/Onc Progress Note Date of Service Oct 19, 2016. 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 Coumadin Medications Medications Administered Medications (Trade) Dose Ordered Sig/Malcolm Route Start Time Stop Time Status Last Admin Dose Admin Levothyroxine Sodium (Synthroid Tab) 225 mcg DAILYBB PO 10/18/16 08:30 11/17/16 08:29 10/19/16 06:53 225 MCG Loperamide HCl (Imodium Cap) 2 mg BID PO 10/18/16 09:00 11/17/16 08:59 10/19/16 08:38 2 MG Loratadine (Claritin Tab) 10 mg DAILY PO 10/18/16 09:00 11/17/16 08:59 10/19/16 08:38 10 MG Nortriptyline HCl (Pamelor Cap) 10 mg HS PO 10/18/16 21:00 11/17/16 20:59 10/18/16 21:17 10 MG Guaifenesin (Organidin Nr Tab) 400 mg TID PO 10/18/16 09:00 11/17/16 08:59 10/19/16 08:38 400 MG Pantoprazole Sodium (Protonix Tab) 40 mg DAILY PO 10/18/16 09:00 11/17/16 08:59 10/19/16 08:38 40 MG Acetaminophen (Tylenol Tab) 650 mg Q4H PRN PO 10/18/16 06:45 11/17/16 06:44 10/19/16 08:39 650 MG Morphine Sulfate 2 mg 2 mg Q30M PRN IV 10/18/16 06:45 11/01/16 06:44 10/19/16 08:39 2 MG Ampicillin Sodium/ Sulbactam Sodium 3000 mg/Sodium Chloride 108 ml @ 200 mls/hr Q6H IV 10/18/16 08:00 10/18/16 13:14 DC 10/18/16 08:29 200 MLS/HR Azithromycin/ Dextrose (Zithromax IV/D5 250ml) 255 ml @ 125 mls/hr DAILY@0900 IV 10/18/16 09:00 10/25/16 08:59 10/19/16 08:38 125 MLS/HR Albuterol/ Ipratropium (Duoneb) 3 ml Q6R INH 10/18/16 09:00 11/17/16 08:59 10/19/16 07:27 3 ML Albuterol Sulfate 2.5 mg 2.5 mg Q4H PRN INH 10/18/16 06:45 11/17/16 06:44 10/18/16 11:22 2.5 MG Potassium Chloride/Dextrose/ Sod Cl 1,000 ml @ 75 mls/hr [id number] IV 10/18/16 08:00 10/18/16 21:19 DC 10/18/16 08:26 75 MLS/HR Sodium Chloride (Nss 250ml) 250 ml @ 999 mls/hr Q16M IV 10/18/16 10:00 10/18/16 10:36 DC 10/18/16 11:19 999 MLS/HR Enoxaparin Sodium 60 mg 60 mg Q12@1100,2300 SQ 10/18/16 11:00 11/17/16 10:59 10/18/16 23:20 60 MG Ceftriaxone Sodium 1 gm/ Dextrose 50 ml @ 100 mls/hr DAILY@1400 IV 10/18/16 14:00 10/25/16 13:59 10/18/16 14:40 100 MLS/HR Metronidazole/Prmx (Flagyl / Nss/ Premixed Nss) 100 ml @ 100 mls/hr Q6 IV 10/18/16 18:00 10/25/16 17:59 10/19/16 06:53 100 MLS/HR Dornase Sy (Pulmozyme Inhalation Soln 2.5ml Amp) 2.5 ml BIDR INH 10/18/16 20:00 11/17/16 19:59 10/19/16 07:27 2.5 ML Subjective He is coughing up a little bit of blood. It is primarily flecks of blood in sputum to perhaps just slightly more. He states this has been ongoing for a couple of weeks. He denies new shortness of breath during the night. His been no fever or chills.. Pain seems well controlled. Review of Systems: Constitutional: Negative for weight loss, night sweats, or fever Eyes: Negative for event change of vision ENT: Negative for epistaxis, nasal discharge, sore throat, or deafness Cardiovascular: Negative for chest pain, palpitations, dizziness, diaphoresis Respiratory: Negative for new shortness of breath during the night, or purulent cough. He has had some hemoptysis Gastrointestinal: Negative for diarrhea, hematemesis, melena, nausea, vomiting , or dyspepsia Integumentary (skin): Negative for rash or jaundice discoloration Genitourinary: Negative for urinary frequency, hematuria, or dysuria Neurological: Negative for weakness, seizure activity, headache, or dizziness Lymphatic/Hematologic: Negative for petechiae, bleeding or new adenopathy Musculoskeletal: Negative for new joint or back pain Allergic/Immunologic: Negative for unusual rash or pruritis. Vital Signs Vital Signs Past 12 Hours Date Time Temp Pulse Resp B/P Pulse Ox O2 Delivery O2 Flow Rate FiO2 10/19/16 07:40 36.9 102 18 112/48 96 4.0 10/19/16 07:27 97 16 93 Nasal Cannula 4.0 10/19/16 04:00 97 Nasal Cannula 4.0 10/19/16 04:00 98 20 118/71 94 Nasal Cannula 4.0 10/19/16 02:13 98 16 94 Nasal Cannula 4.0 10/18/16 23:59 95 Nasal Cannula 4.0 10/18/16 23:59 102 29 117/58 96 Nasal Cannula 4.0 Physical Exam Constitutional: vitals are stable. Eyes: Eyes are JESSICA EOMI without conjuctival erythema or icterus. ENT: External examination was negative for masses. Neck: Negative for masses or palpable thyromegaly Respiratory: Lung sounds were generally clear bilaterally but decreased throughout Cardiovascular: Heart was RRR without significant murmur, gallops aoe rubs Gastrointestinal: No palpable hepatic or splenomegaly. The abdomen was soft with normal bowel sounds. Lymphatic system: there was no palpable peripheral lymphadenopathy Musculoskeletal System: The musculoskeletal system seemed concordant with age. Skin: The skin was negative for jaundice. Neurologic exam: The exam was negative for any focal findings. Deep tendon reflexes were equal and symmetrical. Psychiatric exam: Was essentially negative with normal mood and effect. Extremities: Negative for significant edema Laboratory Last 24 Hours Test 10/19/16 05:18 White Blood Count 9.43 K/uL Red Blood Count 3.80 M/uL Hemoglobin 10.8 g/dL Hematocrit 34.2 % Mean Corpuscular Volume 90.0 fL Mean Corpuscular Hemoglobin 28.4 pg Mean Corpuscular Hemoglobin Concent 31.6 g/dl RDW Standard Deviation 53.0 fL RDW Coefficient of Variation 16.1 % Platelet Count 254 K/uL Mean Platelet Volume 10.0 fL Prothrombin Time 46.3 SECONDS Prothromb Time International Ratio 4.1 Activated Partial Thromboplast Time 78.7 SECONDS Partial Thromboplastin Ratio 3.0 Assessment & Plan CT scan reviewed. Understand pulmonary is involved and perhaps a bronchoscopy is being planned for the lung lesion. He is on therapeutic doses of low molecular weight heparin area work is acceptable. We will follow along with you..
--- NOTE | 2016-10-19 09:46 | PROGRESS NOTE ---
DATE: 10/19/2016 SUBJECTIVE: The patient is comfortable this morning. He continues to have hemoptysis with a small amount of blood produced this morning. He denies chest pain now, continues to have discomfort in his feet related to the peripheral neuropathy. He denies shortness of breath. He has had a 15 pound weight loss. Notes from Dr. Arizmendi and Dr. Moreno are reviewed. CT scan reviewed. MEDICATIONS: Reviewed. OBJECTIVE: VITAL SIGNS: Stable. His resting rate is down from 29 in the 90s to 18 now, blood pressure 112/48, oxygen saturation 96% on 4 liters. His pulse is in atrial flutter at 80-110 beats per minute. Weight is stable at 64 kilograms. According to the nurses' notes he had a fairly good night last night sleeping for long intervals, denied any pain. HEENT: Unremarkable. NECK: There is no neck vein distention or HJR. No nodes are palpable. HEART: Has a regular rate and rhythm, occasional ectopic beat. No murmurs or gallops are auscultated. LUNGS: Reveal decreased breath sounds bilaterally. Few crackles at the right base posterior with no rubs noted. Decreased breath sounds at the left base is noted as well. ABDOMEN: The abdomen is soft and nontender. EXTREMITIES: He has no cyanosis, clubbing. There is calf pain in the left leg. LABORATORY DATA: White count is down from 19.1-9.4, hemoglobin 10.8, was 10.9 on the 19th. PRP is unremarkable. Sodium of 135. INR is 4.1. MRSA DNA surveillance screen is negative. Blood cultures are negative. IMPRESSION: 1. Pulmonary emboli, right lung. This is in the setting of significant anticoagulation. Certainly a malignancy is worrisome. 2. Probable left lower lobe pneumonia. 3. Right lower lobe pulmonary infarction. This would explain the patient's pain. 4. Continued hemoptysis. RECOMMENDATIONS: 1. At this point, I think a bronchoscopy would be indicated. However, he is fully anticoagulated. Therefore, that can be done in the next several days. Evaluation by Dr. Jaramillo may be helpful to see if he would be able to do a bronchoscopy for assessment of his left lower lobe since Dr. Moreno is out in the outpatient department now. 2. I would continue with antibiotics and I think ceftriaxone and Zithromax would be enough. I believe the metronidazole could be discontinued. I do not think this is aspiration. He does not have significant sputum production, I think the Pulmozyme inhalation could be discontinued as well. 3. Once his INR is down to the 2.1 range, I would recommend Lovenox as anticoagulation. He is on that now at 60 mg q. 12 hours. We will need to watch for further episodes of bleeding or even pulmonary hemorrhage. At this point, I would continue with his inhalers with the DuoNeb 4 times a day and q. 4 hours p.r.n. He seems to be quite stable today and he states he is considerably improved.
--- NOTE | 2016-10-19 10:50 | Family Medicine Progress Note ---
Progress Note Date of Service Oct 19, 2016. Subjective Pt evaluation today including: conversation w/ patient, physical exam, chart review, lab review The patient was seen and examined at bedside. Patient received Tylenol and Morphine for his lower leg pain which he states has improved. Patient still has significant dyspnea on exertion - doesn't think he will be able to make it to the toilet for poop - wants to use a bedpan. Nurse reported that they were unable to asses left lower extremity pulses, ( posterior tibial and dorsal aspect of foot). Pt states that he has chronically purple toes and his left foot has been giving him intermittent pain for the past few months. The pain is alleviated by allowing his left foot to hang off the bed. Pt reports that he is constipated but doesn't think he can make it to the bedside commode and wants to try using a bedpan. Plan of care was described to the patient and all questions were answered. Constitutional: + problem reported (Pt reports alternating between being cold and hot. ) Eyes: No worsening of vision Respiratory: + shortness of breath, No cough, No sputum, No wheezing Cardiovascular: No chest pain Abdomen: No diarrhea, No nausea, No pain, No vomiting Neurologic: No memory loss Endo: No excessive thirst, No excessive urination Objective Physical Exam General Appearance: WD/WN, + mild distress, + pertinent finding (Pt is using 4LNC, conversationally dyspneic but stable. ) Neck: no JVD Respiratory/Chest: lungs clear, normal breath sounds, no accessory muscle use Cardiovascular: no edema, no gallop, no JVD, no murmur, + tachycardia Abdomen: normal bowel sounds, non tender, soft, no organomegaly, + distended Extremities: normal range of motion, no pedal edema, no calf tenderness, + pertinent finding (cyanotic toes x 5 on the LLE, faint dorsalis pedis pulse on left, tenderness on dorsiflexion of the LLE. Onychomychosis of the nails and toenails bilaterally. 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 CTA of the chest showed multiple right PEs and consolidation of the LLL. INR on admission was supratherapeutic (3.7). PE in setting of elevated INR is suspicious for underlying hypercoagulable state. Awaiting bronchoscopy to r/o pulmonary neoplasm in light of patient's extensive smoking history. Hospital course is significant for continued hypoxia and Afib with RVR. Pulmonary Embolism - Pt has dyspnea and tachycardia. Currently being anticoagulated. Pt is clinically stable. - Venous Doppler US of LE: Left sided DVT involving the popliteal and peroneal veins. - Coumadin held due to failure of therapy, pt started on Lovenox 60mg BID. Hypercoagulable State - Pt has DVT and PE despite supratherapeutic INR. - CTA revealed prominent mediastinal and hilar nodes, LLL consolidation is a new finding. - Considering bronchoscopy to r/o neoplasm. Dr. Moreno is in clinic, may have to consult Dr. Jaramillo. - Will order arterial doppler of LLE to r/o Arterial Emboli. <- pt states his toes have been purple for months. - Heme/Onc: on board, recommend bronchoscopy, no significant changes to plan. LLL Consolidation - Could be 2/2 PE vs aspiration pneumonia vs malignancy - stopping Metronidazole and Pulmozyne as per Pulm recommendations. - c/w Ceftriazone and Azithromycin. - Blood cultures are negative. - c/w Flutter valve, chest physiotherapy and incentive spirometry Chronic Atrial Flutter/Atrial fibrillation with RVR - Pt peaked with Afib with RVR in the 180s. Elevated RVR was not broken with PO and then IV metoprolol, pt given 10mg bolus of Cardizem with a drip of 5mg/ hr and continue to monitor. - Last ECHO in Jul 2016 showed Normal EF and mitral valve calcification - Continue to observe on Tele. Hypothyroid - TSH and T4 normal in Sep. C/w Synthroid 225mcg DVT Prophylaxis Lovenox 60mg BID Dispo: Tele, full code. Resident Physician Supervision Note: I interviewed and examined the patient. Discussed with Dr. Lamar and agree with findings and plan as documented in the note. Any exceptions or clarifications are listed here: None Documented By: Alexander Cerna feeling OK despite HR 180 no new sob no new cp vitals noted -afib 180's -- metoprolol -- slowed to 140's - then back up tachy irreg irreg breathing unlabored afib RVR - provoked by PE's. metoprolol alone did not improve rate enough - adding IV dilt bolus -- gtt PEs - likely malignancy related failed coumadin. continue vickinox feels better otherwse as above Resident Involvement: Resident Care Provided Care Provided: Adult Hospital Medicine
[2016-10-19] MEDS: ENOXAPARIN 60 MG/0.6 ML SYR SQ SCH ×2 (10:54→19:55)
[2016-10-19] MEDS: CEFTRIAXONE SOD INJ 1 GM in DEXTROSE 5% ADD-VANTAGE 50ML 50 ML IV SCH (13:46)
[2016-10-19] MEDS ORDERED: METOPROLOL TARTRATE 1 MG/ML VIAL ONE (15:44)
[2016-10-19] MEDS ORDERED: METOPROLOL TARTRATE 1 MG/ML VIAL IV STA (15:46)
[2016-10-19] MEDS ORDERED: DILTIAZEM BOLUS / DRIP IV STA (17:44)
[2016-10-19] MEDS ORDERED: DILTIAZEM HCL 5 MG/ML 5 ML VIAL IV SCH (18:00)
[2016-10-19] MEDS: DILTIAZEM HCL INJ 125 MG in DEXTROSE 5% 100ML IV PRN (18:26)
[2016-10-19] MEDS: METOPROLOL TARTRATE 25 MG TAB PO SCH (19:44)
[2016-10-19] MEDS: NORTRIPTYLINE HCL 10 MG CAP PO SCH (19:56)
[2016-10-20] VITALS (15 sets, daily range): BP systolic 92–106; BP diastolic 52–61; PULSE 77–119; TEMP 36.8–37.6; O2SAT 86–95
[2016-10-20] MEDS: ALBUT/IPRATROP 3MG/0.5MG NEB 3 ML VIAL INH SCH ×4 (02:46→19:09)
[2016-10-20] MEDS: MoRPHine SULFATE 2 MG/ML CARP IV PRN (02:48)
[2016-10-20] MEDS: LEVOTHYROXINE 75 MCG TAB PO SCH (04:55)
[2016-10-20 07:41] LABS: HEMATOCRIT 34.8 % (42-52); MEAN CELL VOLUME 87.4 fL (80-100); MEAN CORPUSCULAR HEMOGLOBIN 28.4 pg (25-34); MEAN CORPUSCULAR HGB CONC 32.5 g/dl (32-36); MEAN PLATELET VOLUME 9.6 fL (7.4-10.4); PLATELET COUNT 304 K/uL (130-400); RED BLOOD COUNT 3.98 M/uL (4.7-6.1); WHITE BLOOD COUNT 11.43 K/uL (4.8-10.8)
[2016-10-20 08:01] LABS: INR 2.4 (0.9-1.1); PARTIAL THROMBOPLASTIN RATIO 2.4; PROTHROMBIN TIME (PATIENT) 26.2 SECONDS (9.0-12.0)
[2016-10-20] MEDS: AZITHROMYCIN IV 500 MG in DEXTROSE 5% 250ML 250 ML IV SCH (08:08)
[2016-10-20 08:15] LABS: BUN/CREATININE RATIO 13.7 (10-20); CALCIUM 8.5 mg/dl (8.5-10.1); CREATININE 0.59 mg/dl (0.60-1.40); POTASSIUM 3.9 mmol/L (3.5-5.1)
--- NOTE | 2016-10-20 08:27 | PULMONARY PROGRESS NOTE ---
DATE: 10/20/2016 HISTORY OF PRESENT ILLNESS: The patient is comfortable this morning. He is getting a breathing treatment. Denies any hemoptysis or chest pain or cough. He slept fairly well last night. He is on a Cardizem drip, is tolerating that fairly well for the atrial fibrillation. He continues to have foot pain which is chronic for him. VITAL SIGNS: His blood pressure is 106/61, oxygen saturation 95% on 4 liters, and he is afebrile. I\T\O, 2120 in, 2175 out. Weight 65.3 kilograms. MEDICATIONS: Reviewed. PHYSICAL EXAMINATION: HEENT: Unremarkable. No evidence of any bleeding. NECK: No neck vein distention or HJR. HEART: Regular rate and rhythm. No murmurs are heard. LUNGS: Clear today. No crackles or rubs noted. No fremitus is noted. ABDOMEN: Soft, nontender. EXTREMITIES: He has no significant cyanosis or clubbing today. The PRP and CBC are pending. Sugars in the 103-185 range. INR is pending. IMPRESSION: 1. Pulmonary embolism, right side. 2. Left lower lobe pneumonia. 3. Right lower lobe pulmonary infarction. RECOMMENDATIONS: 1. Continue with his present medications. I agree with the Lovenox as treatment and the Coumadin can be discontinued. Long-term treatment with Lovenox would be appropriate. 2. Continue his present IV antimicrobial agents. 3. Recheck a chest x-ray again in 2 weeks. He could follow up with Dr. Moreno as an outpatient in 3-4 weeks as well.
[2016-10-20] MEDS: LOPERAMIDE HCL 2 MG CAP PO SCH ×2 (09:00→22:02)
--- NOTE | 2016-10-20 09:21 | DIAGNOSTIC IMAGING REPORT ---
ARTERIAL DOPPLER ULTRASOUND OF THE LEFT LOWER EXTREMITY CLINICAL HISTORY: Cyanosis of the toes. Hypercoagulable state. Poor pedal pulses. COMPARISON STUDY: No previous studies for comparison. FINDINGS: There is monophasic flow present within the left common femoral artery. There is monophasic flow present within the left superficial femoral artery. The left mid popliteal artery is occluded. There is monophasic flow present within the anterior tibial and posterior tibial arteries. The peroneal artery was nonvisualized./ IMPRESSION: Occlusion of the mid to distal left popliteal artery. The appearance is suggestive of an acute thrombosis/embolus. Electronically signed by: Aramis Lassiter M.D. 10/20/2016 9:19 AM Dictated Date/Time: 10/20/2016 9:15 AM
--- NOTE | 2016-10-20 10:02 | Hematology/Oncology Prog Note ---
Hematology/Onc Progress Note Date of Service Oct 20, 2016. 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 Coumadin Medications Medications Administered Medications (Trade) Dose Ordered Sig/Malcolm Route Start Time Stop Time Status Last Admin Dose Admin Levothyroxine Sodium (Synthroid Tab) 225 mcg DAILYBB PO 10/18/16 08:30 11/17/16 08:29 10/20/16 04:55 225 MCG Loperamide HCl (Imodium Cap) 2 mg BID PO 10/18/16 09:00 11/17/16 08:59 10/19/16 19:57 2 MG Loratadine (Claritin Tab) 10 mg DAILY PO 10/18/16 09:00 11/17/16 08:59 10/19/16 08:38 10 MG Nortriptyline HCl (Pamelor Cap) 10 mg HS PO 10/18/16 21:00 11/17/16 20:59 10/19/16 19:56 10 MG Guaifenesin (Organidin Nr Tab) 400 mg TID PO 10/18/16 09:00 11/17/16 08:59 10/19/16 19:56 400 MG Pantoprazole Sodium (Protonix Tab) 40 mg DAILY PO 10/18/16 09:00 11/17/16 08:59 10/19/16 08:38 40 MG Acetaminophen (Tylenol Tab) 650 mg Q4H PRN PO 10/18/16 06:45 11/17/16 06:44 10/19/16 20:00 650 MG Ondansetron HCl (Zofran Inj) 4 mg Q6H PRN IV 10/18/16 06:45 11/17/16 06:44 10/20/16 08:00 4 MG Morphine Sulfate 2 mg 2 mg Q30M PRN IV 10/18/16 06:45 11/01/16 06:44 10/20/16 02:48 2 MG Ampicillin Sodium/ Sulbactam Sodium 3000 mg/Sodium Chloride 108 ml @ 200 mls/hr Q6H IV 10/18/16 08:00 10/18/16 13:14 DC 10/18/16 08:29 200 MLS/HR Azithromycin/ Dextrose (Zithromax IV/D5 250ml) 255 ml @ 125 mls/hr DAILY@0900 IV 10/18/16 09:00 10/25/16 08:59 10/20/16 08:08 125 MLS/HR Albuterol/ Ipratropium (Duoneb) 3 ml Q6R INH 10/18/16 09:00 11/17/16 08:59 10/20/16 07:12 3 ML Albuterol Sulfate 2.5 mg 2.5 mg Q4H PRN INH 10/18/16 06:45 11/17/16 06:44 10/18/16 11:22 2.5 MG Potassium Chloride/Dextrose/ Sod Cl 1,000 ml @ 75 mls/hr [id number] IV 10/18/16 08:00 10/18/16 21:19 DC 10/18/16 08:26 75 MLS/HR Sodium Chloride (Nss 250ml) 250 ml @ 999 mls/hr Q16M IV 10/18/16 10:00 10/18/16 10:36 DC 10/18/16 11:19 999 MLS/HR Enoxaparin Sodium 60 mg 60 mg Q12@1100,2300 SQ 10/18/16 11:00 10/19/16 19:03 DC 10/19/16 10:54 60 MG Ceftriaxone Sodium 1 gm/ Dextrose 50 ml @ 100 mls/hr DAILY@1400 IV 10/18/16 14:00 10/25/16 13:59 10/19/16 13:46 100 MLS/HR Metronidazole/Prmx (Flagyl / Nss/ Premixed Nss) 100 ml @ 100 mls/hr Q6 IV 10/18/16 18:00 10/19/16 10:25 DC 10/19/16 06:53 100 MLS/HR Dornase Sy (Pulmozyme Inhalation Soln 2.5ml Amp) 2.5 ml BIDR INH 10/18/16 20:00 10/19/16 10:25 DC 10/19/16 07:27 2.5 ML Metoprolol Tartrate (Lopressor Tab) 25 mg TID PO 10/19/16 21:00 11/18/16 20:59 10/19/16 19:44 25 MG Metoprolol Tartrate (Lopressor Iv) 5 mg STK-MED ONCE .ROUTE 10/19/16 15:44 10/19/16 15:48 DC 10/19/16 15:56 5 MG Diltiazem HCl 10 mg 10 mg TODAY@1800 IV 10/19/16 18:00 10/19/16 18:01 DC 10/19/16 18:25 10 MG Diltiazem HCl/ Dextrose (Cardizem Inj/D5 100ml) 125 ml @ 0 mls/hr Q0M PRN IV 10/19/16 18:00 11/18/16 17:59 10/19/16 18:26 5 MLS/HR Enoxaparin Sodium (Lovenox Inj) 60 mg Q12 SQ 10/19/16 21:00 11/18/16 20:59 10/19/16 19:55 60 MG Subjective INR is 2.4. He states he still having some blood in his sputum. He has pain in both feet that he states has been going on for months and he has been told by other physicians that it might be from vascular insufficiency Review of Systems: Constitutional: Negative for night sweats, or fever Eyes: Negative for event change of vision ENT: Negative for epistaxis, nasal discharge, sore throat, or deafness Cardiovascular: Negative for chest pain, palpitations, dizziness, diaphoresis Respiratory: Negative for worsening shortness of breath, continues to have what I believe is rather minimal hemoptysis, he denies purulent cough Gastrointestinal: Negative for diarrhea, hematemesis, melena, nausea, vomiting , or dyspepsia Integumentary (skin): Negative for rash or jaundice discoloration Genitourinary: Negative for urinary frequency, hematuria, or dysuria Neurological: Negative for weakness, seizure activity, headache, or dizziness Lymphatic/Hematologic: Negative for petechiae, bleeding or new adenopathy Musculoskeletal: Negative for new joint or back pain. Has bilateral foot pain Allergic/Immunologic: Negative for unusual rash or pruritis. Vital Signs Vital Signs Past 12 Hours Date Time Temp Pulse Resp B/P Pulse Ox O2 Delivery O2 Flow Rate FiO2 10/20/16 09:39 Nasal Cannula 4.0 10/20/16 07:54 37.1 119 18 93/61 91 Nasal Cannula 4.0 10/20/16 07:12 114 18 91 Nasal Cannula 4.0 10/20/16 04:00 36.9 91 18 106/61 95 Nasal Cannula 4.0 10/20/16 04:00 Nasal Cannula 4.0 10/20/16 02:46 88 18 91 Nasal Cannula 4.0 10/20/16 00:01 Nasal Cannula 4.0 10/20/16 00:00 37.0 86 20 92/52 88 Nasal Cannula 4.0 Physical Exam Constitutional: vitals are stable. Eyes: Eyes are JESSICA EOMI without conjuctival erythema or icterus. ENT: External examination was negative for masses. Neck: Negative for masses or palpable thyromegaly Respiratory: Lung sounds were generally clear bilaterally Cardiovascular: Heart was RRR without significant murmur, gallops aoe rubs Gastrointestinal: No palpable hepatic or splenomegaly. The abdomen was soft with normal bowel sounds. Lymphatic system: there was no palpable peripheral lymphadenopathy Musculoskeletal System: The musculoskeletal system seemed concordant with age. Skin: The skin was negative for jaundice. Neurologic exam: The exam was negative for any focal findings. Deep tendon reflexes were equal and symmetrical. Psychiatric exam: Was essentially negative with normal mood and effect. Extremities: Examination particularly of his painful left foot does show some mottled skin discoloration and dorsalis pedis is decreased. He has generalized pain around this foot nice suspect that it is secondary to vascular insufficiency. Laboratory Last 24 Hours Test 10/19/16 15:50 10/19/16 20:23 10/20/16 07:10 Bedside Glucose 103 mg/dl 185 mg/dl White Blood Count 11.43 K/uL Red Blood Count 3.98 M/uL Hemoglobin 11.3 g/dL Hematocrit 34.8 % Mean Corpuscular Volume 87.4 fL Mean Corpuscular Hemoglobin 28.4 pg Mean Corpuscular Hemoglobin Concent 32.5 g/dl RDW Standard Deviation 50.9 fL RDW Coefficient of Variation 15.8 % Platelet Count 304 K/uL Mean Platelet Volume 9.6 fL Prothrombin Time 26.2 SECONDS Prothromb Time International Ratio 2.4 Activated Partial Thromboplast Time 62.3 SECONDS Partial Thromboplastin Ratio 2.4 Sodium Level 137 mmol/L Potassium Level 3.9 mmol/L Chloride Level 102 mmol/L Carbon Dioxide Level 29 mmol/L Anion Gap 6.0 mmol/L Blood Urea Nitrogen 8 mg/dl Creatinine 0.59 mg/dl Est Creatinine Clear Calc Drug Dose 110.7 ml/min Estimated GFR () 120.6 Estimated GFR (Non- 104.0 BUN/Creatinine Ratio 13.7 Random Glucose 141 mg/dl Calcium Level 8.5 mg/dl Assessment & Plan In reviewing his CT scans it's interesting to note that some mediastinal adenopathy was actually seen in 2010. His INR is now 2.4 and hopefully a bronchoscopy can be done within the next 24 hours. He is on Lovenox. It might be warranted to reverse with vitamin K but would hold off for now. Hopefully with just diet intake alone the INR will become acceptable to do this procedure within the next 12-24 hours.
[2016-10-20] MEDS: GUAIFENESIN 200 MG TAB PO SCH ×3 (10:32→22:01)
[2016-10-20] MEDS: METOPROLOL TARTRATE 25 MG TAB PO SCH ×3 (10:33→22:01)
[2016-10-20] MEDS: LORATADINE 10 MG TAB PO SCH (10:34)
[2016-10-20] MEDS: PANTOprazole SOD 40 MG TAB PO SCH (10:35)
[2016-10-20] MEDS: ENOXAPARIN 60 MG/0.6 ML SYR SQ SCH ×2 (10:35→22:02)
[2016-10-20] MEDS: ACETAMINOPHEN 325 MG TAB PO PRN ×2 (10:40→20:39)
[2016-10-20] MEDS: CEFTRIAXONE SOD INJ 1 GM in DEXTROSE 5% ADD-VANTAGE 50ML 50 ML IV SCH (13:34)
[2016-10-20] MEDS ORDERED: LOPERAMIDE HCL 2 MG CAP PO PRN (15:00)
--- NOTE | 2016-10-20 15:59 | Family Medicine Progress Note ---
Progress Note Date of Service Oct 20, 2016. Subjective Pt evaluation today including: conversation w/ patient, physical exam, chart review, lab review The patient was seen and examined at bedside. No acute overnight events. Telemetry monitoring showed sinus tachycardia that converted from Afib at approx 6pm the previous day (due to medical management). Pt is using 4LNC and O2 sat is 95%. Patient is still complaining of lower leg pain. Upon specifying, pt stated that his left foot hurts while the previous day it was both of his feet. Patient is resting comfortably in bed. Eating and urinating well. Plan of care was described to the patient and all questions were answered. Constitutional: No chills, No fever, No sweats, No weight loss ENT: No hearing loss Respiratory: + cough, + shortness of breath, + sputum, + wheezing Musculoskeletal: No muscle pain Male : No dysuria Objective Physical Exam General Appearance: WD/WN, no apparent distress Respiratory/Chest: chest non-tender, lungs clear, normal breath sounds, no respiratory distress, no accessory muscle use Cardiovascular: no gallop, no JVD, no murmur, + tachycardia Abdomen: non tender, soft, no organomegaly, no pulsatile mass Extremities: normal range of motion, + pertinent finding (left foot is cooler than the right foot, slightly diapheretic, slight posterior tibial pulsation, and dorsalis pedis. 5/5 power in the upper and lower extremities. ) Neurologic/Psychiatric: no motor/sensory deficits, alert, normal mood/affect, oriented x 3 Assessment and Plan 70M with PMHx of chronic atrial flutter on Coumadin, COPD and with a longstanding smoking history presented from the correctional [facility] to the hospital complaining of SOB, cough and hemoptysis x 2days. CTA of the chest showed multiple right PEs and consolidation of the LLL. INR on admission was supratherapeutic (3.7). PE in setting of elevated INR is suspicious for underlying hypercoagulable state. Hospital course is significant for continued hypoxia and Afib with RVR. Left arterial US was positive for acute occlusion of popliteal artery. Dr. Lindsay was consulted and patient is to undergo an IVC filter today (10/20/16) and possible thrombectomy tomorrow. Pulmonary Embolism - Pt has dyspnea and tachycardia. Currently being anticoagulated. Pt is clinically stable. - Venous Doppler US of LE: Left sided DVT involving the popliteal and peroneal veins. - Coumadin held due to failure of therapy, pt started on Lovenox 60mg BID. - IVC filter to be placed today. Hypercoagulable State - Pt has DVT and PE despite supratherapeutic INR. - CTA revealed prominent mediastinal and hilar nodes, LLL consolidation is a new finding. - Arterial doppler revealed acute popliteal artery occlusion. - Bronchoscopy deferred until after IVC filter placement. - Heme/Onc: on board, recommend bronchoscopy, no significant changes to plan. LLL Consolidation - Could be 2/2 PE vs aspiration pneumonia vs malignancy - c/w Ceftriazone and Azithromycin. - Blood cultures are negative. - c/w Flutter valve, chest physiotherapy and incentive spirometry Chronic Atrial Flutter/Atrial fibrillation with RVR - Pt peaked with Afib with RVR in the 180s. Elevated RVR was not broken with PO and then IV metoprolol, cardizem drip of 5mg/hr and continue to monitor. - Last ECHO in Jul 2016 showed Normal EF and mitral valve calcification - Continue to observe on Tele. Hypothyroid - TSH and T4 normal in Sep. C/w Synthroid 225mcg DVT Prophylaxis Lovenox 60mg BID Dispo: Tele, full code. Resident Physician Supervision Note: I interviewed and examined the patient. Discussed with Dr. Lamar and agree with findings and plan as documented in the note. Any exceptions or clarifications are listed here: None Documented By: Alexander samayoa hurjermaine. R1 d/w dr lindsay while i was present. breathing about the same vitals noted see EMR nad, breathing unlabored. foot L dusky slow cap refill, tender. not frankly cyanotic peripheral vascular disease with acute occlusion - likely thrombotic - vascular to evaluate pe - supportive care afib/rvr - rate controlled probable lung malignancy - for ongoing w/u otherwise as above Resident Involvement: Resident Care Provided Care Provided: Adult Hospital Medicine
[2016-10-20] MEDS ORDERED: OPTIRAY 320 IV PRN (16:00)
--- NOTE | 2016-10-20 16:03 | Surgery Consultation ---
Consultation Date of Service Oct 20, 2016. Chief Complaint Acute DVT with failed anticoagulation and leg pain History of Present Illness The patient is a 70 year old male admitted with DVT and PE with failed anticoagulation therapy. Complains of 50 to 100 yds before he gets SOB. Does not claudicate. He does hang his feet over the side of the bed at night for relief for the last two months. He was noticed to have a colder left foot yesterday by the primary service. There is doppler on the left of peroneal and PT as well as the popliteal. Sounds are monophasic. No ulcers noted. Vitals Vital Signs Past 12 Hours Date Time Temp Pulse Resp B/P Pulse Ox O2 Delivery O2 Flow Rate FiO2 10/20/16 14:48 80 18 92 Nasal Cannula 4.0 10/20/16 14:19 94/57 10/20/16 13:18 93/56 10/20/16 12:00 Nasal Cannula 4.0 10/20/16 11:42 96/57 10/20/16 09:39 Nasal Cannula 4.0 10/20/16 08:00 Nasal Cannula 4.0 10/20/16 07:54 37.1 119 18 93/61 91 Nasal Cannula 4.0 10/20/16 07:12 114 18 91 Nasal Cannula 4.0 10/20/16 04:00 36.9 91 18 106/61 95 Nasal Cannula 4.0 10/20/16 04:00 Nasal Cannula 4.0 Allergies Coded Allergies: Aspirin (Verified Allergy, Unknown, 09/03/16) Procaine (Verified Allergy, Unknown, 09/03/16) Rosuvastatin (Verified Allergy, Unknown, UNKNOWN, 09/03/16) Home Medications Scheduled Aclidinium [place] (Tudorza Pressair), 1 PUFF INH BID Ciclesonide (Alvesco), 1 PUFF PO BID Guaifenesin (Guaifenesin), 400 MG PO TID Levothyroxine Sodium (Synthroid), 225 MCG PO DAILY Loperamide Hcl (Imodium), 2 MG PO BID Loratadine (Claritin), 10 MG PO DAILY Nortriptyline (Pamelor), 10 MG PO HS Omeprazole (Omeprazole), 40 MG PO DAILY Sotalol Hcl (Sotalol Hcl), 80 MG PO BID Warfarin Sodium (Coumadin), 6 MG PO HS Scheduled PRN Acetaminophen (Tylenol), 650 MG PO TID PRN for Pain or Fever Albuterol Hfa (Ventolin Hfa), 2 PUFFS INH QID PRN for SOB/Wheezing Ondansetron Hcl (Zofran), 8 MG PO TID PRN for Nausea Problem List Medical Problems: (1) Afib (2) Anticoagulation goal of INR 2 to 3 (3) Atrial flutter with rapid ventricular response (4) Atrial flutter, chronic (5) COPD (chronic obstructive pulmonary disease) (6) Hemoptysis (7) Hypothyroidism (8) PVD (peripheral vascular disease) Surgical / Medical History Hx Cardiac Surgery: No Hx Abdominal Surgery: Yes (appy) Hx Cancer Surgery: No Hx Thoracic Surgery: No Hx Orthopedic: Yes (C-spine via anterior approach) Hx Urinary Tract Surgery: No Family History No pertinent family history Social History Smoking Status: Former Smoker ([id number] history) Hx Tobacco Use In Past Year?: Yes (2 pack/day 20+ years) Hx Alcohol Use - Type & Amnt: No Hx Substance Use -Type & Amnt: No Review of Systems Constitutional: No chills, No diaphoresis, No fatigue, No fever, No malaise, No problem reported, No sweats, No weakness, No weight gain, No weight loss Respiratory: + short of breath Cardiovascular: No chest pain, No chest pressure, No chest tightness, No cyanosis, No diaphoresis, No edema, No intermittent claudication, No lightheadedness, No mumur, No orthopnea, No palpitations, No paroxysmal nocturnal dyspnea, No problem reported, No syncope Gastrointestinal: No abdominal pain, No anorexia, No appetite changes, No belching, No constipation, No diarrhea, No dysphagia, No flatulence, No food intolerance, No heartburn, No hematemesis, No hematochezia, No hemorrhoids, No indigestion, No nausea, No problem reported, No rectal bleeding, No stool changes, No vomiting Musculoskeletal: + back pain Neurologic: No LOC, No dizziness, No headache, No lethargy, No memory loss, No numbness, No paresthesia, No pre-existing deficit, No problem reported, No seizures, No tics, No tingling, No tremors, No vertigo, No weakness Psychiatric: No alcohol abuse, No anxiety, No auditory hallucinations, No depression, No drug abuse, No homicidal ideation, No mood changes, No problem reported, No suicidal ideation, No visual hallucinations Physical Exam Constitutional: Level of Distress: NAD Ambulation: limited ambulation Psychiatric: Mental Status: active & alert, normal mood, normal affect Orientation: oriented except where noted, to time, to place, to person Memory: recent memory normal, remote memory normal Lungs: Auscultation: breath sounds normal, decreased breath sounds Cardiovascular: Heart Auscultation: RRR, pertinent finding (a fib) Peripheral Pulses: Radial Pulse: normal on the left, normal on the right Femoral Pulse: normal on the right, absent on the left Posterior Tibialis Pulse: normal on the right, absent on the left Dorsalis Pedis Pulse: absent on the left, absent on the right Abdomen: Inspection & Palpation: soft Musculoskeletal: normal Extremities: Upper Right: no cyanosis, no edema, no varicosities, no palpable cord, no clubbing, no ulcers, no mottling Upper Left: no cyanosis, no edema, no palpable cord, no clubbing, no ulcers , no mottling Lower Right: pertinent finding (pale) Lower Left: pertinent finding (pale) Neurologic: Cranial Nerves: grossly intact Sensation: abnormal (hypersensitive) Assessment and Plan Imp: Left popliteal artery occlusion Lower extremity DVT and PE Plan: Will order a CTA tonight and most likely do an embolectomy, arteriography and possible intervention. He will need a filter today being that he has failed anticoagulation and developed a DVT and PE. I have discussed the risks options and benefits of the procedure with the patient. The patient understands the risks options and benefits and agrees to the procedure. Thank you very much for letting me participate in the care of this patient.
[2016-10-20] MEDS ORDERED: MIDAZOLAM HCL 1 MG/ML 2ML VIAL ONE (16:04)
[2016-10-20] MEDS ORDERED: FENTANYL CITRATE INJ 50 MCG/1 ML 2 ML VIAL ONE (16:04)
--- NOTE | 2016-10-20 16:13 | Procedure Note ---
Pre-Mod Sedation Assessment General Date of Moderate Sedation: Oct 20, 2016. Vital Signs: Vital Signs Past 12 Hours Date Time Temp Pulse Resp B/P Pulse Ox O2 Delivery O2 Flow Rate FiO2 10/20/16 16:00 Nasal Cannula 4.0 10/20/16 15:11 36.9 86 18 94/57 90 Nasal Cannula 4.0 10/20/16 14:48 80 18 92 Nasal Cannula 4.0 10/20/16 14:19 94/57 10/20/16 13:18 93/56 10/20/16 12:00 Nasal Cannula 4.0 10/20/16 11:42 96/57 10/20/16 09:39 Nasal Cannula 4.0 10/20/16 08:00 Nasal Cannula 4.0 10/20/16 07:54 37.1 119 18 93/61 91 Nasal Cannula 4.0 10/20/16 07:12 114 18 91 Nasal Cannula 4.0 Pre-Sedation Airway Assessment Oral Cavity: Dentures Smoking Status: Former Smoker ([id number] history) Mallampati Classification: Class I ASA Classification: Class II Notes The planned sedation has been discussed with the patient and consent obtained. I have identified the patient, determined the appropriateness of sedation and have assessed the patient immediately prior to the procedure. All medicine(s) and interventions are by my order.
[2016-10-20] MEDS ORDERED: CEFAZOLIN 1000MG/55 ML D5W 55 ML IV ONE (16:30)
[2016-10-20] MEDS ORDERED: IODIXANOL (VISIPAQUE) 270 MG/ML 50ML IV ONE (16:57)
[2016-10-20] MEDS ORDERED: LIDOCAINE HCL 1% 20 ML VIAL SQ ONE (16:57)
--- NOTE | 2016-10-20 16:59 | [facility] Post Operative Brief Note ---
Immediate Operative Summary Operative Date Oct 20, 2016. Pre-Operative Diagnosis Lower extremity DVT and PE Post-Operative Diagnosis Same Procedure(s) Performed Insertion of Vena Cava Filter, Right Jugular Approach Ultrasound Localization of Right Internal Jugular Fluoroscopy for Positioning Surgeon Lisandra Instrument Lens Grinder Surgeon(s) Leyda Estimated Blood Loss 3 Findings filter upright in infra renal cava, no cava clot seen Specimens None Anesthesia Local Complication(s) None Disposition
[2016-10-20] MEDS ORDERED: LACTATED RINGER'S 1000ML 1,000 ML IV SCH (17:00)
[2016-10-20] MEDS ORDERED: NURSING VERBAL MED ORDER ONE (17:15)
--- NOTE | 2016-10-20 17:52 | DIAGNOSTIC IMAGING REPORT ---
DATE OF PROCEDURE: 10/20/2016 PREOPERATIVE DIAGNOSIS: Acute pulmonary embolism despite therapeutic anticoagulation. POSTOPERATIVE DIAGNOSIS: Same. PROCEDURE: Insertion of inferior vena cava filter. SURGEON: Olayinka Fry MD EMERGENCY GENERATOR MECHANIC: Michael Crabtree MD ANESTHESIA: Local anesthesia only. COMPLICATIONS: None. INDICATIONS FOR PROCEDURE: This is a 70-year-old gentleman who presented to the hospital just recently. He has a history of DVT. He had been maintained on Coumadin therapy. However, he presented with new pulmonary embolus. His INR at that time was greater than 2. It was also noted that he had acute on chronic left lower extremity pain and what looks to be a popliteal occlusion. For his pulmonary embolism, inferior vena cava filter was recommended. The patient consented to undergo procedure after risks, benefits, and alternatives were explained. DESCRIPTION OF PROCEDURE: The patient was brought to the endovascular suite and placed in supine position. The right neck was prepped and draped in normal sterile fashion. A timeout was performed and all parties agreed to correct patient and procedure to be performed. Appropriate surgical prophylactic antibiotics were administered within 1 hour of the incision. Under ultrasound guidance, right internal jugular vein was accessed on the first attempt with access needle. This was done after installation of local anesthetic. An angled Glidewire was advanced to the level of the iliac vein bifurcation. The sheath was advanced over the wire to the level of the distal inferior vena cava. At this sideport of the sheath, a venogram was performed. This clearly identified the iliac bifurcation as well as the right and left renal veins. Next, vena cava filter was brought onto the field and advanced through the sheath. Under fluoroscopic guidance, the filter was deployed. It did have a very slight tilt, but overall was in a good position below the level of the renal veins. All sheaths wires and catheters were then removed. Pressure was held on the neck and hemostasis was achieved. The patient was awakened and transferred to recovery room in satisfactory condition. He will undergo a CT scan this evening and then likely revascularization of his left lower extremity as early as tomorrow.
[2016-10-20] MEDS: DILTIAZEM HCL INJ 125 MG in DEXTROSE 5% 100ML IV PRN (18:04)
--- NOTE | 2016-10-20 19:02 | Anesthesiology Progress Note ---
Anesthesia Progress Note Date of Service Oct 20, 2016. Progress Notes The patient is a 70 y/o male scheduled for L LE embolectomy tomorrow by Dr. Fry. He was admitted on 10/18/16 after a few days of SOB. He was found to be in aflutter with RVR. Additional lung imaging found CHF on CXR, R sided pulmonary emboli on CT, and a L sided pneumonia vs. malignancy. The patient was rate controlled. An IVC filter was placed today because he had a PE despite being therapeutic on Coumadin. He has been treated with ceftriaxone for the possible pneumonia. He has subsequently had L foot color change and found to have L popliteal artery occlusion on ultrasound. Other PMH includes asthma, COPD, long time smoking history, arthritis, hypothyroidism, and anemia. The patient is now rate controlled. He had an echo from 07/30/16 that showed mild MR, fixed MV mass, and EF 55%. Labs are significant for WBC 11.4, hgb 11.3 , PTT 62.3, INR 2.4. His BNP on admission was 1130. On exam the patient was lying in bed and appeared comfortable. He has a caruso. He is MP 2 with good neck ROM. He is edentulous. Lungs had decreased BS bilaterally. Heart was irregular with 2/6 systolic murmur. Carotids were negative for bruits. The patient is an ASA 4. He has been T and C for 2 unit PRBC. He was consented for general anesthesia +/- invasive monitoring. The patient was counseled to remain NPO after 2300 tonight.
--- NOTE | 2016-10-20 21:51 | DIAGNOSTIC IMAGING REPORT ---
CTA OF THE ABDOMEN/PELVIS/BILATERAL LOWER EXTREMITIES WITH INTRAVENOUS CONTRAST HISTORY: Decreased pedal pulses. Left popliteal artery occlusion. TECHNIQUE: Multiaxial CT images of the abdomen, pelvis, bilateral lower extremities were performed following the use of intravenous contrast to evaluate the arterial structures. Maximal intensity projection images were also obtained. COMPARISON STUDY: Left leg arterial Doppler study 10/20/2016. FINDINGS: No significant stenosis or occlusion within the celiac, superior mesenteric, inferior mesenteric, or renal arteries. The abdominal aorta is normal in caliber. There is moderate to severe calcified and soft plaque within the infrarenal abdominal aorta. This results in mild to moderate luminal narrowing. Moderate atherosclerotic plaque within the iliac arteries. The bilateral common iliac arteries are patent. Multifocal [id number]-jazusmbf stenosis within the bilateral internal iliac arteries. No significant stenosis within the right external iliac artery. The left external iliac arteries completely occluded. There is reconstitution of flow within the left common femoral artery due to the inferior epigastric vessels. Scattered calcified plaque within the left superficial femoral artery without significant stenosis. There is occlusion of the mid left popliteal artery, left tibioperoneal trunk, and proximal to mid posterior tibial and peroneal arteries. Reconstitution of flow within the distal posterior tibial and peroneal arteries due to collaterals. The proximal anterior tibial artery demonstrates flow due to collateral reconstitution. However, the mid to distal anterior tibial artery and dorsalis pedis artery are occluded. Scattered calcified plaque within the right common femoral, superficial femoral, popliteal, anterior tibial, posterior tibial, and peroneal arteries. However, there is no significant stenosis or occlusion. The right dorsalis pedis artery is small in caliber but appears to be patent. Small left pleural effusion. Periosteal thickening within the lower extremities may be due to long-standing venous stasis. The liver, gallbladder, spleen, adrenal glands, and pancreas are unremarkable. An IVC filter is present. There are few punctate right renal calculi. There are 2 left renal stones with the largest measuring 1 cm. No hydronephrosis. Mild asymmetric left perinephric edema. No retroperitoneal lymphadenopathy. No bladder wall thickening. Mild presacral edema. No bowel wall thickening or obstruction. IMPRESSION: 1. Occluded left external iliac artery with reconstitution at the common femoral artery. 2. Additional sites of arterial occlusion including the left popliteal artery and within the left calf arteries as described above. 3. No significant stenosis or occlusion within the right lower extremity arterial system. 4. Small left pleural effusion. 5. Bilateral nephrolithiasis. No hydronephrosis. 6. Mild left perinephric edema which is asymmetric. This could be chronic or due to an infectious process. Recommend correlation with urinalysis. Electronically signed by: Reji Curry M.D. 10/20/2016 9:50 PM Dictated Date/Time: 10/20/2016 9:36 PM
[2016-10-20] MEDS: NORTRIPTYLINE HCL 10 MG CAP PO SCH (22:01)
[2016-10-21] VITALS (24 sets, daily range): BP systolic 69–137; BP diastolic 40–74; PULSE 65–146; TEMP 36.9–37.2; O2SAT 86–100
[2016-10-21] MEDS: ACETAMINOPHEN 325 MG TAB PO PRN ×2 (00:46→05:23)
[2016-10-21] MEDS: ALBUT/IPRATROP 3MG/0.5MG NEB 3 ML VIAL INH SCH ×4 (01:29→21:00)
[2016-10-21] MEDS: LEVOTHYROXINE 75 MCG TAB PO SCH (05:21)
[2016-10-21] MEDS ORDERED: FENTANYL CITRATE INJ 50 MCG/1 ML 2 ML VIAL ONE (06:59)
[2016-10-21] MEDS ORDERED: MIDAZOLAM HCL 1 MG/ML 2ML VIAL ONE (06:59)
[2016-10-21 07:08] LABS: HEMATOCRIT 35.4 % (42-52); MEAN CELL VOLUME 89.6 fL (80-100); MEAN CORPUSCULAR HEMOGLOBIN 28.6 pg (25-34); MEAN CORPUSCULAR HGB CONC 31.9 g/dl (32-36); MEAN PLATELET VOLUME 10.1 fL (7.4-10.4); PLATELET COUNT 312 K/uL (130-400); RED BLOOD COUNT 3.95 M/uL (4.7-6.1); WHITE BLOOD COUNT 9.66 K/uL (4.8-10.8)
[2016-10-21] MEDS ORDERED: GELATIN SPONGE SZ 100 ONE (07:17)
[2016-10-21] MEDS ORDERED: BUPIVACAINE/EPINEPHRINE 0.5% MPF 1:200,000 30 ML VIAL ONE (07:17)
[2016-10-21] MEDS ORDERED: LIDOCAINE HCL 2% 2 ML VIAL (20MG/ML) ONE ×2 (07:17→09:38)
[2016-10-21] MEDS ORDERED: PAPAVERINE HCL INJ 30 MG/ML 2 ML VIAL ONE (07:18)
[2016-10-21] MEDS ORDERED: CEFAZOLIN SOD 1 GM VIAL ONE (07:18)
[2016-10-21] MEDS ORDERED: HEPARIN SOD (PORCINE) 1000 UNIT/ML 10 ML VIAL ONE (07:18)
[2016-10-21] MEDS ORDERED: LIDOCAINE HCL 1% 20 ML VIAL ONE (07:18)
[2016-10-21] MEDS ORDERED: THROMBIN 5000 UNITS KIT ONE (07:18)
[2016-10-21 07:25] LABS: CREATININE 0.55 mg/dl (0.60-1.40)
[2016-10-21 07:34] LABS: INR 1.7 (0.9-1.1); PROTHROMBIN TIME (PATIENT) 18.7 SECONDS (9.0-12.0)
--- NOTE | 2016-10-21 08:02 | Progress Note ---
Progress Note Date of Service Oct 21, 2016. Progress Note Patient for revascularization of right leg. I have discussed the risks options and benefits of the procedure with the patient. The patient understands the risks options and benefits and agrees to the procedure. I have examined the patient, reviewed the History & Physical and in the interval since the performance of the History & Physical I have noted the following changes of clinical significance: No changes noted
[2016-10-21 08:03] LABS: ISTAT ARTERIAL BLOOD GAS HCO3 26 meq/L (19-24); ISTAT ARTERIAL BLOOD GAS PCO2 36 mmHg (35-46); ISTAT ARTERIAL BLOOD GAS PO2 61 mmHg (80-95); ISTAT ARTERIAL BLOOD GAS pH 7.46 (7.35-7.45); ISTAT CARBON DIOXIDE 27 mEq/l (24-31)
[2016-10-21] MEDS: ENOXAPARIN 60 MG/0.6 ML SYR SQ SCH ×2 (09:00→20:45)
[2016-10-21] MEDS: AZITHROMYCIN IV 500 MG in DEXTROSE 5% 250ML 250 ML IV SCH (09:15)
[2016-10-21] MEDS ORDERED: PROPOFOL IV EMULSION 10 MG/ML 20 ML VIAL IV ONE ×2 (09:38→09:39)
[2016-10-21] MEDS ORDERED: ONDANSETRON INJ 2 MG/ML 2 ML VIAL ONE (09:38)
[2016-10-21] MEDS ORDERED: ROCURONIUM BROMIDE 10 MG/ML 5 ML VIAL ONE ×2 (09:38→09:39)
--- NOTE | 2016-10-21 10:26 | Family Medicine Progress Note ---
Progress Note Date of Service Oct 21, 2016. Subjective Pt evaluation today including: chart review, lab review Patient was taken to OR for revascularization when rounded at bedside. According to telemetry monitoring RVR has resolved, tele monitoring showed sinus rhythm in the 80s. Due to clinic, will defer today's post of subjective and objective findings to Dr. Cerna, Attending. Patient was seen in the ICU briefly, he was non responsive post op. No complaints from overnight team, and pt was doing well according to nursing notes overnight. Objective Physical Exam General Appearance: no apparent distress, + pertinent finding (Patient is post op. ) Respiratory/Chest: no respiratory distress Cardiovascular: regular rate, rhythm Extremities: + pertinent finding (cyanosis of the left toes, 2+ pulses dorsalis peids and posterior tibial. ) Assessment and Plan 70M with PMHx of chronic atrial flutter on Coumadin, COPD and with a longstanding smoking history presented [facility] the [facility] the hospital complaining of SOB, cough and hemoptysis x 2days. CTA of the chest showed multiple right PEs and consolidation of the LLL. INR on admission was supratherapeutic (3.7). PE in setting of elevated INR is suspicious for underlying hypercoagulable state. Hospital course is significant for continued hypoxia and Afib with RVR. Left arterial US was positive for acute occlusion of popliteal artery. Dr. Fry was consulted and patient received an IVC filter on Wednesday (10/20/16) and is undergoing arterial revascularization of the LLE on Wednesday (10/21/2016) and placed in ICU. Pulmonary Embolism - Tachycardia has resolved, O2 sats however are still low 80s-90s prior to revascularization. - Venous Doppler US of LE: Left sided DVT involving the popliteal and peroneal veins. - IVC filter in place due to failure of outpatient anticoagulation on Coumadin. - c/w Lovenox 60mg BID. L Popliteal Artery Occlusion - s/p revascularization with Dr. Fry for 10/21/16. Hypercoagulable State suspicious for Malignancy - Pt has DVT and PE despite supratherapeutic INR. - CTA revealed prominent mediastinal and hilar nodes, LLL consolidation is a new finding. - Arterial doppler revealed acute popliteal artery occlusion. - Bronchoscopy deferred until after IVC filter placement. - Heme/Onc: on board, recommend bronchoscopy, no significant changes to plan. LLL Consolidation - Could be 2/2 PE vs aspiration pneumonia vs malignancy - c/w Ceftriazone and Azithromycin. - Blood cultures are negative. - c/w Flutter valve, chest physiotherapy and incentive spirometry Chronic Atrial Flutter/Atrial fibrillation with RVR - RVR has resolved, tele monitoring showed sinus rhythm in the 80s. - c/w Lopressor 25mg TID and cardizem drip of 5mg/hr and continue to monitor. - Last ECHO in Jul 2016 showed Normal EF and mitral valve calcification - Continue to observe on Tele. Hypothyroid - TSH and T4 normal in Fe. C/w Synthroid 225mcg DVT Prophylaxis c/w Lovenox 60mg BID (therapeutic anticoagulation). Dispo: Tele, full code. Resident Physician Supervision Note: I interviewed and examined the patient. Discussed with Dr. Lamar and agree with findings and plan as documented in the note. Any exceptions or clarifications are listed here: None Documented By: Alexander Cerna seen post op - intubated, sedated. plan is intubation for a few days and bronch hopefully in next day or two no hpi or ros obtainable vitals noted, see emr. foot w dusky purple but better appearance than yesterday and better cap refill. cyanotic foot - improving post op PE's - anticoagulation, supportive care afib - ongoing rate control, anticoagulation appearance of lung cancer - for bronch soon otherwise as above Resident Involvement: Resident Care Provided Care Provided: Adult Hospital Medicine
[2016-10-21] MEDS ORDERED: PHENYLEPHRINE HCL INJ 10 MG/ML VIAL ONE (10:27)
--- NOTE | 2016-10-21 10:27 | [facility] Post Operative Brief Note ---
Immediate Operative Summary Operative Date Oct 21, 2016. Pre-Operative Diagnosis Left leg ischemia Post-Operative Diagnosis Same as preop Procedure(s) Performed Embolectomy, Left Lower Extremity, Angiography, with patch angioplasty left common femoral artery Surgeon Dr. Fry Induction Coordination Power Engineer Surgeon(s) Dr. Yovani Crabtree Estimated Blood Loss 200 cc Findings embolism of left ext iliac and popliteal artery Specimens A: left iliac embolus B: left popliteal embolus Anesthesia Gen Complication(s) None Disposition Surgical ICU
[2016-10-21] MEDS ORDERED: ONDANSETRON INJ 2 MG/ML 2 ML VIAL IV PRN (10:30)
[2016-10-21] MEDS ORDERED: D5W AND 1/2NSS 1,000 ML IV SCH (10:45)
[2016-10-21] MEDS ORDERED: VISIPAQUE (IODIXANOL) INJ 270MG/ML INSTIL ONE (10:54)
[2016-10-21] MEDS ORDERED: PROPOFOL IV EMULSION 10 MG/ML 100 ML VIAL IV ONE ×2 (11:00→18:26)
[2016-10-21 11:12] LABS: BASO % 0.2 %; BASO ABS # 0.03 K/uL (0-0.2); COMPLETE YES; HEMATOCRIT 32.7 % (42-52); IG% 2.1 %; LYMPH % 10.4 %; MEAN CELL VOLUME 88.9 fL (80-100); MEAN CORPUSCULAR HEMOGLOBIN 28.3 pg (25-34); MEAN CORPUSCULAR HGB CONC 31.8 g/dl (32-36); MEAN PLATELET VOLUME 9.5 fL (7.4-10.4); MONO % 10.9 %; NEUT % 73.4 %; PLATELET COUNT 350 K/uL (130-400); RED BLOOD COUNT 3.68 M/uL (4.7-6.1)
--- NOTE | 2016-10-21 11:21 | Anesthesiology Progress Note ---
Anesthesia Post Op Note Date & Time Oct 21, 2016 at 11:12 Vital Signs Pain Intensity: 7.0 Vital Signs Past 12 Hours Date Time Temp Pulse Resp B/P Pulse Ox O2 Delivery O2 Flow Rate FiO2 10/21/16 09:49 37.2 80 20 86 6.0 10/21/16 04:15 37.2 80 20 107/61 86 Nasal Cannula 6.0 10/21/16 04:15 86 Nasal Cannula 6.0 10/21/16 01:29 78 16 90 Nasal Cannula 6.0 10/21/16 00:00 89 Nasal Cannula 5.0 10/20/16 23:20 37.6 88 20 94/52 89 Nasal Cannula 5.0 Notes Mental Status: alert / awake / arousable, participated in evaluation Pt Amnestic to Procedure: Yes Nausea / Vomiting: adequately controlled Pain: adequately controlled Airway Patency, RR, SpO2: stable & adequate BP & HR: stable & adequate Hydration State: stable & adequate Anesthetic Complications: See full notes below. L arm 18G infiltrated, propofol and rocuronium were administered in to infiltrated IV at induction. Arm was warm and well perfused post op. No evidence of skin necrosis. No significant swelling of upper arm. Dr Fry advised simply watching the site with no planned intervention. On examining the patient preop, he was in significant respiratory distress, with pursed lip breathing and subjective dyspnea. Lung sounds were distant and coarse bilaterally. I did draw an ABG preop which showed significant hypoxia and also a respiratory alkalosis. Due to these factors, his comorbidities, and the nature of the operation, I spoke with the patient about the significant likelihood of post-op ventilation. I also spoke with Dr Fry and recommended ICU care afterward. After infiltrating his IV with rocuronium, plans were made to continue post op ventilation without attempts to wean immediately post-op, as I am uncertain of the pharmacodynamics of rocuronium in the subcutaneous tissue. A tripple leumen catheter at this point was placed in the RIJ to allow sufficient access both for the case and post operative management. I discussed this plan with the load mixer who may coordinate with Dr Moreno regarding the patient's planned bronchoscopy.
--- NOTE | 2016-10-21 11:36 | DIAGNOSTIC IMAGING REPORT ---
CHEST ONE VIEW PORTABLE HISTORY: RIJ line placement, ett placement. COMPARISON: Chest 10/18/2016. FINDINGS: Endotracheal tube terminates 4.7 cm from the eli. Right jugular central venous catheter terminates in the SVC. Left subclavian catheter terminates at the brachiocephalic/SVC junction. This is unchanged in position. No pneumothorax. A right azygos lobe is again noted. Diffuse interstitial thickening has progressed consistent with pulmonary edema. Bibasilar airspace opacities have also progressed. Small right pleural effusion. The heart is normal in size. IMPRESSION: 1. Satisfactory support line placement. No pneumothorax. 2. Progression of the pulmonary edema and bibasilar airspace opacities.. Small right pleural effusion, unchanged. Electronically signed by: Reji Curry M.D. 10/21/2016 11:34 AM Dictated Date/Time: 10/21/2016 11:33 AM
[2016-10-21 11:42] LABS: BUN/CREATININE RATIO 24.2 (10-20); CREATININE 0.51 mg/dl (0.60-1.40); POTASSIUM 4.3 mmol/L (3.5-5.1)
[2016-10-21 12:02] LABS: ISTAT ARTERIAL BLOOD GAS HCO3 30 meq/L (19-24); ISTAT ARTERIAL BLOOD GAS PCO2 69 mmHg (35-46); ISTAT ARTERIAL BLOOD GAS PO2 94 mmHg (80-95); ISTAT ARTERIAL BLOOD GAS pH 7.24 (7.35-7.45); ISTAT CARBON DIOXIDE 32 mEq/l (24-31); ISTAT DELIVERY SYSTEM Ventilator; ISTAT FIO2 100 %; ISTAT PEEP 5; ISTAT RATE 12; ISTAT SITE Art Line; VE 9; Vt 500
[2016-10-21] MEDS ORDERED: METOPROLOL TARTRATE 1 MG/ML VIAL ONE (12:04)
[2016-10-21] MEDS ORDERED: METOPROLOL TARTRATE 1 MG/ML VIAL IV STA (12:08)
[2016-10-21] MEDS ORDERED: DILTIAZEM HCL 5 MG/ML 5 ML VIAL ONE ×2 (12:22→15:40)
--- NOTE | 2016-10-21 12:47 | OPERATIVE REPORT ---
DATE OF OPERATION: 10/21/2016 PREOPERATIVE DIAGNOSIS: Left lower extremity limb ischemia. POSTOPERATIVE DIAGNOSIS: Same. PROCEDURE PERFORMED: 1. Left femoral cutdown and iliac, femoral, popliteal transfemoral embolectomy. 2. Patch angioplasty closure of left common femoral artery. 3. Limited left iliac angiogram. SURGEON: Olayinka Fry MD. IRONWORKER WIRE FENCE ERECTOR: Michael Crabtree MD. ANESTHESIA: General endotracheal. ESTIMATED BLOOD LOSS: 200 mL COMPLICATIONS: None. INDICATIONS: This is a 70-year-old gentleman who recently presented to the hospital with worsening left lower extremity pain and discomfort. His history was somewhat convoluted but he had had progressing left lower extremity pain and discomfort for weeks to months. This pain was relieved by dangling his foot over the side of the bed. However, he did not have any true or classic claudication symptoms. CT scan revealed left iliac thromboembolism as well as occlusion of his left popliteal artery. The above procedure was indicated for relief of his ongoing left lower extremity ischemic symptoms. The patient understood the risks, benefits, alternatives, and agreed to proceed. PROCEDURE IN DETAIL: The patient was brought to the operating room and placed in the supine position. Bilateral groins were prepped and draped in a normal sterile fashion. A timeout was performed and all parties agreed to correct patient and procedure to be performed. Appropriate surgical prophylactic antibiotics were administered within 1 hour of the incision. Of note, there was some difficulty obtaining IV access, and therefore, a right internal jugular triple lumen catheter was placed by the anesthesia team. We started by making a vertical incision over the location of the left femoral artery. This incision was deepened with electrocautery. The inguinal ligament was identified and the common femoral artery coming out below it. The area was cleaned off and the common femoral, superficial femoral, profunda femoral arteries were all controlled. The patient was systemically heparinized. A vertical arteriotomy was made with an 11 blade. This was extended with Alejandra scissors. There was good backbleeding from the profunda. There was diminished inflow from the common femoral artery. A short 4-Dutch Stalin embolectomy catheter was brought onto the field and passed proximally. This yielded return of thrombus which was more chronic in nature. The embolectomy catheter was passed until no more thrombus was retrieved. We then turned our attention to performing an embolectomy distally. A 3-Dutch long embolectomy catheter was brought onto the field and passed down the leg. This did not yield any thrombus. There was still diminished backbleeding from the superficial femoral artery. Therefore, a long 4-Dutch catheter was brought onto the field and passed distally. We did retrieve a moderate amount of thrombus from this. Again, this was passed until there was return of no thrombus. We elected to perform limited left iliac angiogram given the calcification seen on his previous CT scan. An 8-Dutch sheath was brought onto the field and passed through our previous arteriotomy. Limited left iliac angiogram showed widely patent common iliac, internal iliac, and external iliac arteries. There was no need for any ballooning or stenting. We then turned our attention to closing our arteriotomy. A bovine pericardial LeMaitre patch was brought onto the field. It was sewn in a patch closure technique of the common femoral artery with help of running 5-0 Prolene suture. Prior to completion of the anastomosis, the artery was back bled, forward bled, and flushed. The anastomosis was secured and it was hemostatic. At the completion of this, there were strong triphasic Doppler signals in the superficial femoral and profunda femoral artery. The wound was copiously irrigated with antibiotic saline. The wound was closed in layers with the help of Vicryl suture. The skin was closed with a running subcuticular stitch. At the end of the procedure, there was a strong biphasic posterior tibial signal in the patient's foot. Anesthesia team recommended the patient be transferred to the ICU with a ventilator. There were no complications, and all the sponge, instrument, needle counts were correct as reported. I attest to the content of the Intraoperative Record and any orders documented therein. Any exceptio ns are noted below.
[2016-10-21 13:05] LABS: ISTAT ARTERIAL BLOOD GAS HCO3 26 meq/L (19-24); ISTAT ARTERIAL BLOOD GAS PCO2 56 mmHg (35-46); ISTAT ARTERIAL BLOOD GAS PO2 67 mmHg (80-95); ISTAT ARTERIAL BLOOD GAS pH 7.28 (7.35-7.45); ISTAT CARBON DIOXIDE 28 mEq/l (24-31); ISTAT DELIVERY SYSTEM Ventilator; ISTAT FIO2 100 %; ISTAT PEEP 5; ISTAT RATE 16; ISTAT SITE Art Line; VE 8; Vt 500
[2016-10-21] MEDS ORDERED: NOREPINEPHRINE BIT INJ 8 MG in DEXTROSE 5% 500ML 500 ML IV STA (13:11)
[2016-10-21] MEDS ORDERED: NURSING VERBAL MED ORDER ONE ×3 (13:15→23:30)
--- NOTE | 2016-10-21 13:39 | DIAGNOSTIC IMAGING REPORT ---
KUB CLINICAL HISTORY: ORAL SALEM SUMP PLACEMENT tube position COMPARISON STUDY: No previous studies for comparison. FINDINGS: The soft tissues, psoas shadows, renal outlines and intestinal gas pattern appear normal. There is no evidence for bowel obstruction. No abnormal abdominal calcifications are seen. Some placement within the gastric fundus IMPRESSION: Tube placed in the gastric fundus Electronically signed by: Domo Lucas M.D. 10/21/2016 1:37 PM Dictated Date/Time: 10/21/2016 1:37 PM
[2016-10-21] MEDS ORDERED: AMIODARONE IV BOLUS / DRIP IV STA (13:42)
[2016-10-21] MEDS ORDERED: AMIODARONE / D5W 100 ML IV SCH (13:45)
[2016-10-21] MEDS ORDERED: AMIODARONE / D5W 200 ML IV SCH (14:00)
[2016-10-21] MEDS: NOREPINEPHRINE BIT INJ 8 MG in DEXTROSE 5% 500ML 500 ML IV PRN ×2 (14:02→20:38)
[2016-10-21] MEDS ORDERED: INSULIN IV INFUSION PROTOCOL SCH (14:26)
[2016-10-21] MEDS ORDERED: SEVERE STRESS LEVEL ONE (14:30)
[2016-10-21] MEDS ORDERED: DKA GOAL RANGE 150-250 mg/dl 1 EA ONE (14:30)
[2016-10-21] MEDS ORDERED: GLUCOSE 40% GEL 15 GM TUBE PO PRN (14:45)
[2016-10-21] MEDS ORDERED: DEXTROSE 50% 50 ML SYR IV PRN (14:45)
[2016-10-21] MEDS ORDERED: GLUCAGON FOR INJ 1 MG VIAL SQ PRN (14:45)
[2016-10-21] MEDS ORDERED: GLUCOSE 10 TABS/TUBE PO PRN (14:45)
[2016-10-21] MEDS: METOPROLOL TARTRATE 25 MG TAB PO SCH ×2 (15:18→20:43)
[2016-10-21] MEDS: DILTIAZEM HCL INJ 125 MG in DEXTROSE 5% 100ML IV PRN (15:20)
[2016-10-21] MEDS: CEFTRIAXONE SOD INJ 1 GM in DEXTROSE 5% ADD-VANTAGE 50ML 50 ML IV SCH (15:30)
[2016-10-21 16:08] LABS: HEMATOCRIT 33.4 % (42-52)
[2016-10-21] MEDS ORDERED: INSULIN HUMAN REGULAR IV BOLUS 2.5 UNIT in SYRINGE 0 ML IV SCH (16:15)
[2016-10-21 16:25] LABS: ISTAT ARTERIAL BLOOD GAS HCO3 25 meq/L (19-24); ISTAT ARTERIAL BLOOD GAS PCO2 44 mmHg (35-46); ISTAT ARTERIAL BLOOD GAS PO2 139 mmHg (80-95); ISTAT ARTERIAL BLOOD GAS pH 7.36 (7.35-7.45); ISTAT CARBON DIOXIDE 26 mEq/l (24-31); ISTAT DELIVERY SYSTEM Ventilator; ISTAT FIO2 100 %; ISTAT PEEP 8; ISTAT RATE 20; ISTAT SITE Art Line; VE 10; Vt 500
[2016-10-21] MEDS: INSULIN ASPART 100 UNITS/ML 3 ML PEN SC SCH ×2 (16:26→20:44)
[2016-10-21] MEDS: INSULIN REGULAR 250 UNITS in SODIUM CHLORIDE 0.9% 250ML 250 ML IV SCH ×2 (16:26→17:23)
--- NOTE | 2016-10-21 17:08 | CRITICAL CARE CONSULTATION ---
DATE OF CONSULTATION: 10/21/2016 CHIEF COMPLAINT: Shortness of breath. HISTORY OF PRESENT ILLNESS: The patient is a 70-year-old prisoner who was transferred from the operating room to the intensive care unit status post a left lower extremity embolectomy with angioplasty and patch of the left common femoral artery. He was originally admitted to the hospital on October 17 with complaints of cough x2 days. He has a history of chronic obstructive pulmonary disease as well as atrial fibrillation and atrial flutter, for which he had been taking Coumadin. His INR on admission was 3.7. He was admitted to the hospital after having a CT scan of his chest, revealing right-sided pulmonary emboli, although this was not a new diagnosis. Additionally, he reported some hemoptysis and his CT also had showed some left lower lobe consolidation. He has been given Unasyn as well as ceftriaxone and Flagyl. He remains on ceftriaxone and azithromycin. Upon admission, he was seen by the hematology service regarding his Coumadin failure and he was placed on therapeutic doses of Lovenox b.i.d. He is also being seen by the pulmonology service as there is now a question of a postobstructive pneumonia versus aspiration pneumonia, although he did not present with a history necessarily consistent with aspiration pneumonia. Since his admission, his sotalol has been discontinued and he has had some atrial fibrillation. He was initially treated with some Lopressor and returned to normal sinus rhythm. He was in atrial flutter prior to being seen in the Emergency Department. He is now back in atrial fibrillation postoperatively. On October 19, he was noted to have a cold left foot. Vascular surgery was consulted and he underwent angiography of the lower extremities, showing an occluded left external iliac artery, reconstitution at the left common femoral artery and additional sites of arterial occlusion including left popliteal artery and within the left calf arteries. He was taken to the operating room on October 20 for an IVC filter and returned to the operating room today for his embolectomy. Intraoperatively, he received 1.2 of IV fluid, had 350 mL of estimated blood loss and 200 mL of urine output. He was transferred from the operating room to the intensive care unit, ventilated and was reportedly short of breath with increasing oxygen requirements preoperatively. At baseline, he uses 2 liters of oxygen and he was on 6 at that time. He was also very rhonchorous. Since arriving in the intensive care unit, he is returned to atrial fibrillation with rapid ventricular response and has had 25 mg of Cardizem. His Cardizem infusion is now at 15 mg per hour. I bolused him with amiodarone and he is also on an amiodarone infusion. His metoprolol was increased to 50 mg t.i.d. 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 Last echocardiogram in July of 2016 showed normal ejection fraction, borderline right ventricular enlargement and right atrium within normal limits. Trace aortic insufficiency and a calcified fixed mass on the anterior mitral valve leaflet. He underwent ILENE from 07/30/2016, showed no endocarditis. PAST SURGICAL HISTORY: A-port placement, appendectomy, and laminectomy. ALLERGIES: ASPIRIN, WHICH CAUSES A RASH, PROCAINE AND ROSUVASTATIN. PRESENT MEDICATIONS: Acetaminophen, albuterol, DuoNeb, amiodarone, azithromycin day #4, ceftriaxone day #4, chlorhexidine, D5 normal saline 100 mL per hour, Cardizem infusion, Lovenox, insulin sliding scale, Synthroid, metoprolol, norepinephrine, morphine, Pamelor, Zofran, Protonix, and MiraLax. SOCIAL HISTORY: He has a [id number] smoking history and is incarcerated. He was also incarcerated in 2004. I do not know if he has been incarcerated continuously since that time. REVIEW OF SYSTEMS: Not obtainable as he is on the ventilator. Per other notes, there is a history of 15-pound weight loss in the past few months and increasing shortness of breath. PHYSICAL EXAMINATION: GENERAL: This is a thin and chronically ill appearing man, lying in bed, sedated. VITAL SIGNS: Temperature 36.9, heart rate 136, respiratory rate 27, blood pressure 83/65, and oxygen saturation 100%. HEENT: Pupils are equally round and reactive to light. Oral examination is deferred due to the endotracheal tube and orogastric tube being in place. NECK: Veins are flat. No adenopathy. LUNGS: Very coarse bilaterally with some rales in the left base. No rhonchi or wheezes. HEART: Tachycardic, regular. No murmurs noted. ABDOMEN: Soft, nondistended, and nontender. EXTREMITIES: Warm. Left groin site with dressing clean, dry and intact. The left foot is a little bit darker than the right and pulses are audible by Doppler. NEUROLOGIC: He is unresponsive. LABORATORY DATA: White blood cell count 13.5, hemoglobin 10.4, hematocrit 32.7, and platelets 350. Sodium 137, potassium 4.3, chloride 102, CO2 of 30, BUN 12, creatinine 0.51, and blood sugar 155, repeated 315. ABG, pH 7.28, pCO2 of 56, pO2 of 67 and HCO3 of 26. PT 18.7, INR 1.7, and PTT 52.1. Portable chest x-ray, postop shows progression of pulmonary edema and bibasilar airspace opacities, small right pleural effusion, unchanged. Blood cultures 10/18, no growth to date. IMPRESSION AND PLAN: 1. Status post left lower extremity embolectomy with angioplasty and patch of the left common femoral artery. 2. Acute hypercapnic hypoxemic respiratory failure, multifactorial. He has pulmonary emboli as well as pneumonia. His chest x-ray now shows what may be some pulmonary edema versus acute respiratory distress syndrome. 3. Atrial fibrillation with rapid ventricular response, on sotalol as an outpatient. Presently, on amiodarone, diltiazem and Lopressor. He has preserved ejection fraction based on his last echocardiogram. 4. Hypercoagulable state, concern for malignancy, particularly of the left lower lobe. He is being seen by the pulmonology service and their considerations are being made for bronchoscopy. 5. Hyperglycemia. No known history of diabetes. Hemoglobin A1c pending. 6. History of deep venous thrombosis and pulmonary embolism, status post IVC filter on October 20. 7. History of chronic obstructive pulmonary disease. 8. History of hypothyroidism. 9. History of peripheral vascular disease. 10. History of squamous cell carcinoma of the rectum. 11. Hypotension, possible septic shock versus multifactorial from medications as well. PLAN: NEUROLOGIC: We presently add fentanyl and see if the propofol can be weaned. This may help his blood pressure as well. Also, treat any pain or discomfort with the fentanyl. CARDIOVASCULAR: Consider resuming sotalol. He is presently on a lot of medications to try to control his rate. Given the fact that his embolism and hypercoagulable state likely came from his heart, I would rather not cardiovert him. He has been hypotensive and I suspect that is secondary to medication effect. PULMONARY: Continue bronchodilators, chest percussion, antibiotics and consider bronchoscopy. Could also consider adding intravenous corticosteroids. ENDOCRINE: Blood sugar is high. I have started an insulin infusion. RENAL: No active issues presently. He has had some hypotension and some IV contrast. Follow the creatinine and replete electrolytes as needed. GASTROINTESTINAL: Begin tube feeds today. I have also discontinued nonessential medications. HEMATOLOGY: Stat H\H to rule out bleeding as the reason for his hypotension. There is no established decision maker for this gentleman as far as I can tell. Thank you for asking me to see this patient. Please call me with any questions or concerns. Critical care time 90 minutes. MTDD
[2016-10-21] MEDS: FENTANYL CITRATE INJ 50 MCG/1 ML 2 ML VIAL IV PRN (17:56)
[2016-10-21] MEDS: FENTANYL 1250MCG/250ML NSS 250 ML IV PRN (17:57)
[2016-10-21] MEDS ORDERED: PROPOFOL IV EMULSION 10 MG/ML 100 ML VIAL IV PRN (18:15)
[2016-10-21] MEDS: AMIODARONE / D5W 200 ML IV SCH (20:36)
[2016-10-21] MEDS: CHLORHEXIDINE GLUCONATE 0.12% 480 ML MT SCH (20:39)
[2016-10-21] MEDS: NORTRIPTYLINE HCL 10 MG CAP PO SCH (20:43)
[2016-10-21 22:24] LABS: HEMATOCRIT 30.9 % (42-52); MEAN CELL VOLUME 87.5 fL (80-100); MEAN CORPUSCULAR HEMOGLOBIN 28.3 pg (25-34); MEAN PLATELET VOLUME 9.1 fL (7.4-10.4); PLATELET COUNT 346 K/uL (130-400); RED BLOOD COUNT 3.53 M/uL (4.7-6.1); WHITE BLOOD COUNT 20.06 K/uL (4.8-10.8)
[2016-10-21 22:36] LABS: INR 1.8 (0.9-1.1); PARTIAL THROMBOPLASTIN RATIO 1.7; PROTHROMBIN TIME (PATIENT) 19.4 SECONDS (9.0-12.0)
[2016-10-21 22:48] LABS: COMPLETE YES; LYMPH ABS # 0.52 K/uL (1.2-3.4); LYMPHOCYTE % 2.6 %; MEAN CORPUSCULAR HGB CONC 32.4 g/dl (32-36); META ABS # 0.18 K/uL (0-0); METAMYELOCYTE % 0.9 %; NEUTROPHILS % 88.6 %; POLYCHROMASIA 1+
[2016-10-21] MEDS ORDERED: HEPARIN IV BOLUS 5,000 UNIT in SYRINGE 0 ML IV STA (23:35)
[2016-10-21] MEDS: HEPARIN 25,000 UNIT/500ML D5W 500 ML IV PRN (23:57)
[2016-10-22] VITALS (42 sets, daily range): BP systolic 81–165; BP diastolic 52–91; PULSE 65–141; TEMP 36.4–37; O2SAT 95–100; Ht 172.7 cm; Wt 57.9 kg
[2016-10-22] MEDS ORDERED: NURSING VERBAL MED ORDER ONE ×2 (00:15→15:45)
[2016-10-22] MEDS: ALBUTEROL HFA 8 GM INHALER INH SCH ×4 (02:36→21:01)
[2016-10-22] MEDS: IPRATROPIUM BROMIDE HFA INHALER INH SCH ×4 (02:36→21:01)
[2016-10-22] MEDS: NOREPINEPHRINE BIT INJ 8 MG in DEXTROSE 5% 500ML 500 ML IV PRN ×2 (04:23→21:36)
[2016-10-22] MEDS: LEVOTHYROXINE 75 MCG TAB PO SCH (05:30)
[2016-10-22] MEDS: AMIODARONE / D5W 200 ML IV SCH ×4 (05:32→22:09)
[2016-10-22 05:59] LABS: HEMATOCRIT 30.6 % (42-52); MEAN CELL VOLUME 87.7 fL (80-100); MEAN CORPUSCULAR HEMOGLOBIN 28.1 pg (25-34); MEAN PLATELET VOLUME 9.5 fL (7.4-10.4); PLATELET COUNT 332 K/uL (130-400); RED BLOOD COUNT 3.49 M/uL (4.7-6.1)
[2016-10-22 06:38] LABS: CALCIUM 8.3 mg/dl (8.5-10.1); CREATININE 0.63 mg/dl (0.60-1.40); MAGNESIUM 1.9 mg/dl (1.8-2.4); PHOSPHORUS 3.2 mg/dl (2.5-4.9); POTASSIUM 4.1 mmol/L (3.5-5.1)
[2016-10-22] MEDS: HEPARIN 25,000 UNIT/500ML D5W 500 ML IV PRN ×3 (06:38→23:02)
--- NOTE | 2016-10-22 07:16 | DIAGNOSTIC IMAGING REPORT ---
CHEST ONE VIEW PORTABLE CLINICAL HISTORY: f/u infiltrates dyspnea COMPARISON STUDY: 10/21/2016 FINDINGS: Endotracheal tube 3 cm with the eli. Slight improvement in aeration right lung base. Parenchymal infiltrative changes bilaterally otherwise appear similar. Left hemidiaphragm remains visible. Heart is top lung zone terms of size. IMPRESSION: Bilateral parenchymal infiltrative changes. Mild improvement right base. All remaining findings are stable. Electronically signed by: Domo Lucas M.D. 10/22/2016 7:15 AM Dictated Date/Time: 10/22/2016 7:13 AM
[2016-10-22 07:39] LABS: ESTIMATED AVERAGE GLUCOSE 128 mg/dl; HA1C FLAG Normal (Normal)
[2016-10-22] MEDS: INSULIN ASPART 100 UNITS/ML 3 ML PEN SC SCH ×4 (08:00→21:37)
[2016-10-22 08:05] LABS: COMPLETE YES; EOSINOPHIL % 1.7 %; LYMPH ABS # 1.55 K/uL (1.2-3.4); LYMPHOCYTE % 7.8 %; META ABS # 0.34 K/uL (0-0); METAMYELOCYTE % 1.7 %; NEUTROPHILS % 84.5 %; POLYCHROMASIA 1+
[2016-10-22 08:17] LABS: ISTAT ARTERIAL BLOOD GAS HCO3 25 meq/L (19-24); ISTAT ARTERIAL BLOOD GAS PCO2 40 mmHg (35-46); ISTAT ARTERIAL BLOOD GAS PO2 105 mmHg (80-95); ISTAT CARBON DIOXIDE 26 mEq/l (24-31); ISTAT DELIVERY SYSTEM Ventilator; ISTAT FIO2 50 %; ISTAT PEEP 8; ISTAT RATE 20; ISTAT SITE Art Line; VE 11.1; Vt 500
--- NOTE | 2016-10-22 08:35 | PULMONARY PROGRESS NOTE ---
DATE: 10/22/2016 This patient is in the intensive care unit room 111, intubated now following the procedure yesterday. He continues to have ischemia to the left foot. He had a filter placed and had left femoral cutdown surgery on the left leg by Dr. Fry;embolectomy with no embolus noted. Postop, he developed atrial fibrillation and respiratory failure, was intubated, and Dr. Cobb has been evaluating the patient. Presently on ventilation of about 12 liters. Hemodynamically, he has required Levophed and is sedated. He has not had any episodes of hemoptysis. His secretions are a bit thick but not bloody. PHYSICAL EXAMINATION: VITAL SIGNS: Stable otherwise. Blood pressure 113/55-105/53. He has an arterial line in place. Oxygen saturation 60%. He is afebrile. I\T\O, 3053 in, 1697 out. Weight 69.6 kilograms. He was 64 kilograms on 10/18/2016. Nurses' notes reviewed. Endotracheal tube is in good position, it is a #8 tube. No subcutaneous emphysema is noted. NECK: There is no neck vein distention or HJR. HEART: Irregular rhythm. LUNGS: Reveal decreased breath sounds with a few crackles at the left base. No fremitus is noted. ABDOMEN: Soft, nontender. EXTREMITIES: His left foot is cool. LABORATORY DATA: White count 19.9, hemoglobin 9.8, hematocrit 31%, platelet count 332,000. PRP looks good with a BUN of 16, creatinine of 0.6, calcium was 8.3. Phosphorus and magnesium look good. Random cortisol level was obtained and that is pending. His sugars have been in the 300 range. MRSA DNA surveillance screen was negative. His chest film reveals bilateral pulmonary infiltrates, endotracheal tube is 3 cm above the eli, there is improvement in aeration of the right base. IMPRESSION: 1. Respiratory failure. 2. Pulmonary emboli, status post filter placed with hemoptysis. 3. Ischemia left foot. 4. Atrial fibrillation. RECOMMENDATIONS: 1. Continue with his present medications. He is being heparinized, we will have to watch for pulmonary bleeding, but I think it is unlikely now since the hemoptysis had all resolved. 2. Continued ventilator support with weaning as tolerated. 3. At this point, I will continue on the Ventolin and Atrovent q. 6 hours to enhance mucociliary clearance. After extubation, he would benefit from noninvasive ventilation or positive pressure breathing. I will continue his present antimicrobial agents at this point as well. Sputum Gram stain and C & S will be helpful. MTDD
--- NOTE | 2016-10-22 09:00 | Progress Note ---
Progress Note Date of Service Oct 22, 2016. Progress Note Patient loss doppler pulses in his left foot last pm. Was told he had a femoral pulse. He was in afib yesterday post op with a fast rate and hypotensive. Converted last pm. Lost pulses after he converted. Today his leg is mottled from knee down and he has no femoral pulse. Still able to wiggle his toes on his left foot. Needs emergency surgical intervention for limb salvage. He is sedated so is unable to give consent. He may require bypass and fasciotomies. There is a high chance of loosing his leg even with intervention.
[2016-10-22] MEDS ORDERED: VASOPRESSIN 20 UNIT/ML VIAL ONE (09:14)
[2016-10-22] MEDS ORDERED: LIDOCAINE HCL 2% 2 ML VIAL (20MG/ML) ONE (09:14)
[2016-10-22] MEDS ORDERED: MIDAZOLAM HCL 1 MG/ML 2ML VIAL ONE ×2 (09:14→11:33)
[2016-10-22] MEDS ORDERED: ROCURONIUM BROMIDE 10 MG/ML 5 ML VIAL ONE ×3 (09:14→12:51)
[2016-10-22] MEDS ORDERED: PROPOFOL IV EMULSION 10 MG/ML 20 ML VIAL IV ONE (09:14)
[2016-10-22] MEDS ORDERED: FENTANYL CITRATE INJ 50 MCG/1 ML 2 ML VIAL ONE ×2 (09:14→13:42)
[2016-10-22] MEDS: AZITHROMYCIN IV 500 MG in DEXTROSE 5% 250ML 250 ML IV SCH (09:26)
[2016-10-22] MEDS ORDERED: THROMBIN 5000 UNITS KIT ONE (09:36)
[2016-10-22] MEDS ORDERED: HEPARIN SOD (PORCINE) 5000 UNIT/ML 1 ML VIAL ONE (09:36)
[2016-10-22] MEDS ORDERED: CEFAZOLIN SOD 1 GM VIAL ONE (09:36)
[2016-10-22] MEDS: CHLORHEXIDINE GLUCONATE 0.12% 480 ML MT SCH ×2 (09:37→21:33)
[2016-10-22] MEDS ORDERED: BUPIVACAINE/EPINEPHRINE 0.5% MPF 1:200,000 30 ML VIAL ONE (09:37)
[2016-10-22] MEDS ORDERED: LIDOCAINE HCL 1% 20 ML VIAL ONE (09:37)
[2016-10-22] MEDS ORDERED: GELATIN SPONGE SZ 100 ONE (09:41)
[2016-10-22] MEDS ORDERED: METOPROLOL TARTRATE 1 MG/ML VIAL ONE ×2 (09:44→10:19)
[2016-10-22] MEDS ORDERED: PHARMACY GLYCEMIC MGMT CONSULT PRN (09:45)
[2016-10-22] MEDS ORDERED: HEPARIN SOD (PORCINE) 1000 UNIT/ML 10 ML VIAL ONE ×2 (09:52→10:25)
--- NOTE | 2016-10-22 10:33 | Family Medicine Progress Note ---
Progress Note Date of Service Oct 22, 2016. Subjective Pt evaluation today including: conversation w/ patient, physical exam, chart review, lab review The patient was seen and examined at bedside in the ICU. Patient is on a mechanical ventilator and sedated with Propofol. Patient is also receiving Norepi. Patient is able to communicate by nodding and shaking his head. He denies being in any pain. The plan of care was described to the patient -> including revascularization with Dr. Fry this morning. Vascular surgery fellow and OR nurse were also in room. ROS: Difficult to attain due to patient's sedation and intubation. Objective Physical Exam General Appearance: WD/WN, no apparent distress, + pertinent finding (well hydrated) Eyes: normal inspection, PERRL Cardiovascular: no murmur, + irregularly irregular Abdomen: + pertinent finding (well looking left inguinal incision from previous days arterial thrombectomy) Extremities: no pedal edema, + pertinent finding (moderate levido reticularis on the medial aspect of the left medial malleolus. Unable to palpate pulse in the posterio tibial artery. ) Neurologic/Psychiatric: alert, + pertinent finding (unable to assess orientation because of intubation and inability to speak) Assessment and Plan 70M with PMHx of chronic atrial flutter on Coumadin, COPD and with a longstanding smoking history presented from the correctional facility to the hospital complaining of SOB, cough and hemoptysis x 2days. CTA of the chest showed multiple right PEs and consolidation of the LLL. INR on admission was supratherapeutic (3.7). PE in setting of elevated INR is suspicious for underlying hypercoagulable state. Hospital course is significant for continued hypoxia and Afib with RVR. Left arterial US was positive for acute occlusion of popliteal artery. 10/20/2016- Wednesday - Dr. Fry was consulted and patient received an IVC filter on Wednesday10/21/2016 - Wednesday- Revascularization of the LLE on Wednesday by Dr. Fry 10/21/2016 (today) - Patient was re-evaluated on 10/22/16 and found to have new cyanosis and decreased perfusion of the left foot - will be taken today to OR for revascularization. Patient was found to be in Afib on 10/22/16 and a cardiology consult was placed by Dr. Coleman. (acute) L Popliteal Artery Occlusion - s/p revascularization with Dr. Fry for 10/21/16. Patient is adequately sedated and intubated. - Patient will be taken back to OR on 10/22/16 for repeat revascularization for new occlusion. New Onset Afib - Rate in the 80s, pt is on heparin for Anticoagulation. - Patient started on Amiodarone drip. - Cardiology consulted by Dr. Coleman (ICU) Pulmonary Embolism - Tachycardia has resolved, pt is intubated on mechanical vent with good sats. - US of LE: Left sided DVT involving the popliteal and peroneal veins. - IVC filter in place due to failure of outpatient anticoagulation on Coumadin. - c/w Heparin Drip. Hypercoagulable State suspicious for Malignancy - Pt has DVT and PE despite supratherapeutic INR. - CTA revealed prominent mediastinal and hilar nodes, LLL consolidation is a new finding. - Arterial doppler revealed acute popliteal artery occlusion. - Bronchoscopy deferred until after IVC filter placement. - Heme/Onc: on board, hopefully bronchoscopy once the patient is stable. LLL Consolidation - Could be 2/2 PE vs aspiration pneumonia vs malignancy - c/w Ceftriazone and Azithromycin. - Blood cultures are negative. - c/w Flutter valve, chest physiotherapy and incentive spirometry Chronic Atrial Flutter/Atrial fibrillation with RVR - RVR has resolved, tele monitoring showed sinus rhythm in the 80s. - c/w Lopressor 25mg TID and cardizem drip of 5mg/hr and continue to monitor. - Last ECHO in Jul 2016 showed Normal EF and mitral valve calcification - Continue to observe on Tele. Hypothyroid - TSH and T4 normal in Sep. C/w Synthroid 225mcg DVT Prophylaxis Heparin Drip Dispo: ICU, Prisoner, full code. Resident Physician Supervision Note: I interviewed and examined the patient. Discussed with [Willard] and agree with findings and plan as documented in the note. Any exceptions or clarifications are listed here: [None] Documented By: Alexander Cerna seen post re-op for leg. unable to successfully revascularize. on vent. sedated vitals noted. LLE pale and dusky, otherwise exam as above LLE ischemia - worrisome for overall prognosis given both fairly extreme hypercoagulability having this much clotting despite therapeutic INR on admission, and then on therapeutic lovneox; now heparin lung mass - worrisome overall PEs - anticoagulation, supportive care due to overall very worrisome prognosis, RN reaching out to group home to see if contacting family is legally possible. Resident Involvement: Resident Care Provided Care Provided: Adult Hospital Medicine
[2016-10-22] MEDS ORDERED: PANTOprazole INJ 40 MG in SYRINGE 0 ML IV SCH (11:00)
[2016-10-22] MEDS ORDERED: NovoLIN-R INSULIN PER UNIT CHARGE ONE (11:33)
[2016-10-22] MEDS ORDERED: PHENYLEPHRINE HCL INJ 10 MG/ML VIAL ONE (11:52)
[2016-10-22] MEDS ORDERED: SODIUM CHLORIDE 0.9% INJ 10 ML VIAL ONE (12:30)
[2016-10-22] MEDS ORDERED: DILTIAZEM BOLUS / DRIP IV STA (13:12)
[2016-10-22 13:14] LABS: ISTAT CREATININE 0.6 mg/dl (0.6-1.3); ISTAT HEMOGLOBIN 11.6 g/dl (14.0-18.0); ISTAT IONIZED CALCIUM 1.13 mmol/l (1.12-1.32)
[2016-10-22] MEDS ORDERED: DILTIAZEM HCL INJ 125 MG in DEXTROSE 5% 100ML IV PRN (13:30)
--- NOTE | 2016-10-22 13:56 | [facility] Post Operative Brief Note ---
Immediate Operative Summary Operative Date Oct 22, 2016. Pre-Operative Diagnosis Left Leg Ischemia Post-Operative Diagnosis Same as preoperative Procedure(s) Performed Embolectomy Left Lower Extremity, Transluminal of Posterior Tibial Artery Surgeon Dr. Olayinka Fry Rand Cementer Surgeon(s) Michael Crabtree, Fellow Estimated Blood Loss 300ml Findings doppler dp at end but with a thump sound Specimens A.) Embolus, Left Leg Anesthesia Gen Complication(s) None Disposition Surgical ICU
[2016-10-22] MEDS ORDERED: VISIPAQUE (IODIXANOL) INJ 270MG/ML INSTIL ONE (14:25)
--- NOTE | 2016-10-22 14:40 | OPERATIVE REPORT ---
DATE OF OPERATION: 10/22/2016 PREOPERATIVE DIAGNOSIS: Left lower extremity acute limb ischemia. POSTOPERATIVE DIAGNOSES: Same. PROCEDURE: 1. Reexploration of left common femoral artery. 2. Transfemoral iliac and femoral embolectomy. 3. Left below knee popliteal artery cutdown and left transpopliteal femoral and tibial thrombectomy. 4. Left lower extremity angiogram. 5. Left posterior tibial artery cutdown and transtibial embolectomy. 6. Left posterior tibial artery open balloon angioplasty. SURGEON: Olayinka Fry M.D. ELECTRONIC PREPRESS SYSTEM OPERATOR: Michael Crabtree M.D. ANESTHESIA: General endotracheal. ESTIMATED BLOOD LOSS: 300 mL. COMPLICATIONS: None. INDICATIONS: This is a 70-year-old gentleman who presented recently to the hospital with acute limb ischemia. He was taken to the operating room yesterday with no motor or sensory changes and femoral embolectomy was performed. Unfortunately, he had a recurrence of his thrombus. His foot was mottled and cold. Motor remained diminished but intact. Procedure was indicated for limb salvage. PROCEDURE: The patient was brought to the operating room and placed in supine position. The entire left lower extremity was prepped and draped in normal sterile fashion. Time out was performed and all parties agreed to correct patient and procedure to be performed. Appropriate surgical prophylactic antibiotics were administered 1 hour of the incision. We began by reexploring the left common femoral artery. The old incision was reopened and the femoral artery was identified. The patch was intact and there was no pulse in the femoral artery. We bolused with heparin and maintained an ACT greater than 200 for the duration of the case. The femoral artery was clamped and opened transversely above the previous patch. Embolectomy catheters were passed proximally and distally. The superficial femoral artery and profunda femoral artery were selected individually. We were able to reestablish what appeared to be a normal inflow. The profunda was widely patent. We passed a catheter down the superficial femoral artery and did get some backbleeding. At this point, 8 English sheath was brought onto the field and directed distally. The angiogram of the left lower extremity showed SFA to be patent but occluded at the level of the knee. For this reason, we elected to perform a below knee popliteal cutdown. We turned our attention to the left leg. A longitudinal incision was made on the medial aspect of the left leg. The dissection was continued through subcutaneous tissues with electrocautery. The semitendinosis and thin membranous tendons were transected. The fascial plane was entered. The popliteal artery was dissected free. It was controlled proximally and distally. We identified the origin of the anterior tibial artery as well. A transverse arteriotomy was made. A catheters were passed proximally and distally. The inflow was normal, but there was really no backbleeding at all. Multiple attempts were made with the 2 and 3 embolectomy catheters and really no outflow could be achieved. We therefore elected to perform a posterior tibial artery cutdown. This was dominant outflow based on clinical exam from yesterday. A longitudinal incision was made at the level of the medial malleolus. This dissection was deepened with electrocautery. The fascial plane was identified and incised. The posterior tibial artery was identified. It was soft. It was dissected free and controlled. A transverse arteriotomy was made in the posterior tibial artery at the ankle. Two embolectomy catheter was passed proximally. It exited the arteriotomy at the level of the popliteal artery. The embolectomy was performed and there was minimal return of clot. We then injected heparinized saline through the open arteriotomies. This did result in a fairly moderate amount of clot which was removed. For this reason, we elected to balloon angioplasty this region. An 0.014 wire was passed in between the 2 arteriotomies at the level of the popliteal artery and the posterior tibial artery. A 2 mm balloon was used to angioplasty the entire posterior tibial artery between these 2 areas. Next, both arteriotomies were closed. The distal posterior tibial artery was closed with interrupted 7-0 Prolene sutures. The popliteal artery arteriotomy was closed with interrupted 6-0 Prolene sutures. The arteriotomies were hemostatic. At this point, there was a popliteal artery signal but it was fairly obstructed. Upon further interrogation it appeared that this signal diminished at the level of the mid leg. For this reason, we elected to continue to explore the posterior tibial artery in this region. It was dissected free, taking down the soleus muscle. Crossing veins were ligated as necessary. We again controlled the mid posterior tibial artery and made a transverse arteriotomy in this region. A 2-0 and 3-0 embolectomy catheters were passed into this area. We were able to get a fair amount of clot back distally. Again the inflow was essentially normal to this point. We closed this arteriotomy with interrupted Prolene suture. At this point, there was a pulse in the posterior tibial artery at the level of the ankle, but it was somewhat diminished. The Doppler signal sounded fairly obstructed and there was really no outflow in the foot. We elected to terminate the procedure at this point as all of the large vessels had been opened to our satisfaction, but the patient continued to make thrombus and based on signals really had no outflow in his foot. This may be related to the fair amount of DVT that he is known to have as well. All wounds were irrigated with antibiotic solution. The groin was closed in 2 layers followed by avelino for skin. The below knee incision was closed with a single subcutaneous layer and avelino for the skin. The ankle incision was closed in 2 layers as well. The patient will be transferred to the ICU on a ventilator. There were no apparent complications. At this point, his vascular supply to his left foot is tenuous and he may ultimately require a below knee amputation. All the sponge, instrument and needle counts were correct as reported. I attest to the content of the Intraoperative Record and any orders documented therein. Any exceptions are noted below. ANT
[2016-10-22] MEDS: CEFTRIAXONE SOD INJ 1 GM in DEXTROSE 5% ADD-VANTAGE 50ML 50 ML IV SCH (14:58)
[2016-10-22] MEDS: DOCUSATE SODIUM 100 MG/10 ML UDC PO SCH ×2 (14:59→21:33)
--- NOTE | 2016-10-22 15:00 | Pharmacy Progress Note ---
Glycemic Control Intl Consult Date of Service Oct 22, 2016. Scope Glycemic Pharmacist consulted by Dr Coleman on 10/22/16 for glycemic control and to write orders per [facility] inpatient glycemic control protocol. Objective Weight (Kilograms): 69.600 Accuchecks BSG (last 24hrs): Test 10/22/16 05:38 Random Glucose 138 mg/dl (70-99) Laboratory Data (last 24hrs) Test 10/21/16 22:18 10/22/16 05:38 10/22/16 12:43 White Blood Count 20.06 K/uL 19.90 K/uL Red Blood Count 3.53 M/uL 3.49 M/uL Hemoglobin 10.0 g/dL 9.8 g/dL Hematocrit 30.9 % 30.6 % Mean Corpuscular Volume 87.5 fL 87.7 fL Mean Corpuscular Hemoglobin 28.3 pg 28.1 pg Mean Corpuscular Hemoglobin Concent 32.4 g/dl 32.0 g/dl Platelet Count 346 K/uL 332 K/uL Mean Platelet Volume 9.1 fL 9.5 fL Anion Gap 7.0 mmol/L 18.0 mmol/L BUN/Creatinine Ratio 26.0 Blood Urea Nitrogen 16 mg/dl Creatinine 0.63 mg/dl Hemoglobin A1c 6.1 % Potassium Level 4.1 mmol/L Sodium Level 132 mmol/L HbA1c Test 10/22/16 05:38 Hemoglobin A1c 6.1 % (4.5-5.6) H Recent Pertinent Medications Outpatient Anti-diabetic Regimen: * n/a * A1c = 6.1 % (10/22/16) -- which technically indicates pre-diabetes, but is not unreasonable for a 70yo with multiple co-morbidities Risk Factors for Insulin Resistance: * Steroids: may add IV steroids * Infection: on Azithromycin and Ceftriaxone * Pressors: Norepinephrine * IVF: Amiodarone, Heparin gtt, Fentanyl gtt, propofol * Recent Surgery: POD # 0/1 for embolectomy(s) * Diet: NPO * Mechanical Ventilation: yes Assessment & Plan ASSESSMENT: * Patient was initiated on an IV insulin infusion yesterday evening after BSG reached 315mg/dL. Patient's BSGs have been stable on ~1unit/hr. * Patient was not transitioned to SQ regimen this morning, as patient's glycemic needs were potentially changing throughout the day: * Pt returned to OR for second procedure * Potential for addition of steroids * Once post-op, if patient seems appropriate to transition to SQ insulin, could consider making the transition this evening. * HbA1c drawn this morning technically indicates pre-diabetes (6.1%), but it is not unreasonable for a 70yo male with multiple co-morbidities. I don't anticipate that he will require the addition of anti-diabetic meds on discharge. Diet modifications would be appropriate. May consider consulting CDE. * ADA & AACE recommend a goal blood sugar range 140-180 mg/dl for the majority of critically ill & non-critically ill patients. However, more stringent targets may be selected in individual cases. PLAN FOR INPATIENT GLYCEMIC CONTROL: If decision is made to transition from IV to SQ insulin this evening, would recommend: * Basal insulin with LANTUS 10 units SQ BID * Give 1st dose prior to the discontinuation of insulin gtt. May d/c gtt when instructed to hold by "insulin infusion adjustment calculator" or 6 hours after Lantus administration (whichever happens sooner). * This dose is based on insulin infusion rate of ~1unit/hr -->~24 units basal insulin per day * Correctional Insulin with NOVOLOG per scale Q6hrs while NPO * Goal Range: Low 140 mg/dL - High 180 mg/dL * Correction Factor: 35 mg/dL/unit * Nutritional / Prandial insulin per carb ratio of 1 unit per 15 grams CHO consumed * Please note that the plan above was derived based on current level of insulin resistance and hospital stress. These recommendations are appropriate for inpatient admission only. Plan of care upon discharge will need to be reassessed to avoid potential outpatient hypo/hyperglycemia. Thank you.
--- NOTE | 2016-10-22 15:10 | Anesthesiology Progress Note ---
Anesthesia Post Op Note Date & Time Oct 22, 2016 at 15:08 Vital Signs Pain Intensity: 0 Vital Signs Past 12 Hours Date Time Temp Pulse Resp B/P Pulse Ox O2 Delivery O2 Flow Rate FiO2 10/22/16 14:55 141 26 96/63 96 93/67 10/22/16 14:50 140 27 114/70 96 109/78 10/22/16 14:45 36.6 139 21 124/71 96 123/83 10/22/16 14:40 139 29 117/82 96 10/22/16 14:39 36.9 129 28 116/83 96 137/87 10/22/16 14:35 139 25 98/73 97 103/73 10/22/16 14:30 37.0 139 20 115/70 99 120/79 10/22/16 14:25 37.0 140 20 144/78 99 139/89 10/22/16 14:20 36.9 139 20 165/83 99 140/87 10/22/16 14:15 137 27 97 145/91 10/22/16 14:12 37.0 135 96 140/85 10/22/16 08:00 60 10/22/16 08:00 36.7 108 20 115/65 97 Mechanical Ventilator 60 106/52 10/22/16 08:00 Mechanical Ventilator 50 10/22/16 07:20 50 10/22/16 06:30 88 21 105/53 97 10/22/16 06:00 75 20 113/55 98 102/61 10/22/16 05:30 73 19 103/59 98 10/22/16 05:10 60 10/22/16 05:00 83 19 95/62 99 108/67 10/22/16 04:30 80 19 90/63 100 10/22/16 04:00 99 Mechanical Ventilator 60 10/22/16 04:00 71 20 86/60 100 107/66 10/22/16 04:00 36.4 10/22/16 04:00 60 10/22/16 03:30 73 20 96/68 98 10/22/16 03:10 89 22 98/71 99 109/59 Notes Mental Status: see Notes Pt Amnestic to Procedure: Yes Nausea / Vomiting: adequately controlled Pain: adequately controlled Airway Patency, RR, SpO2: stable & adequate BP & HR: see Notes Hydration State: stable & adequate Anesthetic Complications: no major complications apparent Patient was in critical condition when taken to ICU. He was already intubated and sedated with vasoactive medications for BP support. Arterial line and central line in place. Patient was in A fib with RVR prior to OR and remained that way during procedure. We did start a diltiazem ggt near the end of the procedure for HR control as we were unable to start it earlier 2/2 hypotension ( treated with vasoactive medications and 2 units pRBC's). Patient returned to ICU intubated and report given to ICU attending.
[2016-10-22 15:14] LABS: PARTIAL THROMBOPLASTIN RATIO 4.9
[2016-10-22] MEDS ORDERED: AMIODARONE IV BOLUS / DRIP IV STA (15:19)
[2016-10-22] MEDS ORDERED: AMIODARONE 150MG / 100ML D5W ONE (15:26)
[2016-10-22] MEDS ORDERED: AMIODARONE 360MG / 200ML D5W ONE (15:26)
[2016-10-22] MEDS: INSULIN REGULAR 250 UNITS in SODIUM CHLORIDE 0.9% 250ML 250 ML IV SCH (15:39)
[2016-10-22 15:44] LABS: ISTAT CREATININE 0.8 mg/dl (0.6-1.3); ISTAT HEMOGLOBIN 10.2 g/dl (14.0-18.0); ISTAT IONIZED CALCIUM 1.07 mmol/l (1.12-1.32)
[2016-10-22] MEDS ORDERED: AMIODARONE / D5W 100 ML IV SCH (15:45)
[2016-10-22] MEDS ORDERED: ALBUMIN HUMAN 25% 12.5 GM/50 ML VIAL IV STA (16:21)
--- NOTE | 2016-10-22 16:24 | CRITICAL CARE PROGRESS NOTE ---
DATE: 10/22/2016 SUBJECTIVE: This is a 70-year-old gentleman admitted to the hospital with shortness of breath as well as atrial fibrillation and atrial flutter. He is being treated for pneumonia as well as DVT and PE, which occurred on Coumadin with an INR of 3.7 on admission. He was admitted to the ICU yesterday after a left lower extremity embolectomy and remained on the ventilator overnight. He went into rapid atrial fibrillation yesterday and was given multiple medications. His rate improved and the Cardizem was weaned off last night. This morning on rounds, it was felt that he was in sinus rhythm with PACs, although I did not see the rhythm strip. Evidently, he has been in atrial flutter or atrial fibrillation with a more controlled rate until just before he returned to the operating room today. Last night, his left foot became cold and mottled. He was started on heparin infusion and Lovenox was discontinued. He just returned from a second left lower extremity thrombectomy. He received 2 units of packed red blood cells intraoperatively and was in rapid afib on arrival to the ICU with a heart rate of around 130. He was given diltiazem 10mg intraoperatively and a diltiazem infusion was started at 10mg/hour. He had an estimated blood loss of 350ml. His care was discussed in detail on multidisciplinary rounds today. He remains intubated and sedated with propofol and fentanyl infusions. He remains on an amiodarone infusion and was on an insulin drip last night. He has not had a bowel movement in the past several days and he is not having any significant endotracheal tube secretions. PHYSICAL EXAMINATION: VITAL SIGNS: Maximum temperature 36.9, heart rate 68-132, blood pressure 102-113/50s-60s, oxygen saturation 95%, and respiratory rate 19-21. Ventilator settings: Assist control rate 20, tidal volume 500, FiO2 at 60%, PEEP 8. 24-hour fluid balance is positive 1.3 liters. GENERAL: He was sedated and just out of the OR. HEENT: His pupils are 5 mm bilaterally. He was weekly nod his head to questions, but would not follow any commands. LUNGS: Decreased breath sounds in the left base and are coarse throughout. No rhonchi or wheezes. HEART: Tachycardic, sounds regular, no murmurs. ABDOMEN: Soft and nondistended without bowel sounds. The left groin dressing is clean, dry and intact. EXTREMITIES: The left leg and foot are cool up to just below the knee. There is some mottling over the left foot and toes; however, it is a little bit difficult to tell due to the blue chlorhexidine used in preparation for his surgery today. Pulses are not palpable in the foot. There is no edema. The right lower extremity is warm and I cannot palpate pulses in that foot. There is no new edema. LABORATORY DATA: White blood cell count 19.9, hemoglobin 9.8, hematocrit 30.6, and platelets 332. Followup hemoglobin 11.6. Sodium 130, potassium 4.3, chloride 91, CO2 of 25, BUN 13, creatinine 0.6, blood sugar 214, and ionized calcium 1.13. Random cortisol 14. MEDICATIONS : Acetaminophen, Ventolin, amiodarone, azithromycin day #5, ceftriaxone day #5, chlorhexidine, diltiazem, Colace, fentanyl, heparin infusion, insulin infusion, insulin sliding scale, Atrovent, Synthroid, norepinephrine, Pamelor, Zofran, Protonix, MiraLax, and propofol. IMAGING STUDIES: Portable chest x-ray from this morning was reviewed and shows bilateral parenchymal infiltrative changes with mild improvement on the right. Otherwise, no change. IMPRESSION: 1. Acute hypoxemic respiratory failure secondary to pneumonia, now treated for community-acquired pneumonia for 5 days. Still unclear whether or not this is secondary to aspiration or is a postobstructive pneumonia. There may be some consideration for bronchoscopy yesterday by the pulmonary service. 2. Status post embolectomy of the left lower extremity today. Postop day #1, status post embolectomy of the left lower extremity as well. 3. Pulmonary embolism. Initially, I thought this was a recurrent problem, but in reviewing the notes again, it was diagnosed on admission. He also has a left lower extremity deep venous thrombosis and both were diagnosed while he was on Coumadin and presenting with an INR of 3.7. He was switched to Lovenox b.i.d. and will be back a heparin infusion post operatively. 4. Atrial fibrillation with rapid ventricular response, he has a history of atrial fibrillation and was most recently on sotalol. He has been given amiodarone, diltiazem and Lopressor since his admission. The cardiology service is seeing him now. He is no longer on his sotalol and his Lopressor has been discontinued. 5. Hypotension, unclear etiology. He may be getting septic from his ischemic leg and foot. He is also on several medications for sedation that could contribute to his hypotension. Additionally, his atrial fibrillation may affect it. He is on a large dose of levophed as well. 6. Hyperglycemia, hemoglobin A1c is 6.1. This is improved status post insulin infusion, which was stopped for the procedure today. 7. Hypercoagulable state with concern for malignancy. He has a history of squamous cell carcinoma of the rectum in 2004 and is status post chemotherapy and radiation therapy. 8. Status post IVC filter on October 20. 9. History of chronic obstructive pulmonary disease. 10. History of peripheral vascular disease. 11. Anemia. 12. Constipation. PLAN: NEUROLOGIC: Continue fentanyl and propofol. PULMONARY: Continue bronchodilators, chest percussion and consider discontinuing the azithromycin today. I will try connect with Dr. Moreno regarding bronchoscopy. Also, it may be worthwhile to consider giving this man some IV steroids. CARDIOVASCULAR: The cardiology service has been consulted. The patient has not been on sotalol for very long according to Dr. Farmer. He is going to re-bolus him with amiodarone. Continue to titrate the Cardizem infusion and consider digoxin if he remains tachycardic and in atrial fibrillation. GASTROINTESTINAL: Resume tube feeds. Colace and MiraLax have been added to his regimen. ENDOCRINE: Resume insulin infusion and plan to transition him to once daily or b.i.d. insulin injections. Many thanks to the pharmacy service for their assistance in his blood sugar management. Random cortisol level was 14. Another reason to potentially consider some IV steroids. RENAL: No acute or active issues presently. He has now had several dye loads, but I think that he is euvolemic or volume overloaded. Continue to follow creatinine as well as electrolytes and replete as needed. HEMATOLOGY: This man has had arterial and venous clotting while on anticoagulation but it's unclear to me if he was therapeutic consistently as an outpatient. The hematology service is seeing him. Continue heparin infusion. Watch for any further signs of bleeding. Critical care time 60 minutes. MTDD
[2016-10-22] MEDS ORDERED: PANTOprazole INJ 80 MG in DEXTROSE 5% 100ML IV SCH (16:30)
--- NOTE | 2016-10-22 16:59 | CARDIOLOGY CONSULTATION ---
DATE OF CONSULTATION: 10/22/2016 TIME: 15:21 p.m. CONSULTING PHYSICIAN: Dr. Coleman. REASON FOR CONSULTATION: Atrial fibrillation. HISTORY OF PRESENT ILLNESS: Mr. Crook is a 70-year-old gentleman who has been seen by Dr. Guzman in July of 2016 for atrial flutter and once again in September of 2016 for atrial flutter and started on sotalol during his September hospitalization. For his paroxysmal atrial flutter, sotalol was initiated due to the fact that he had symptomatic episodes of his tachyarrhythmia. He was discharged on sotalol 80 mg twice daily. He presented to the Emergency Department from [facility] on 10/17/2016 with shortness of breath and apparently was hypoxic with oxygen saturation in the 80s. He underwent a CT angiogram, which demonstrated pulmonary emboli. This occurred while on Coumadin with an INR of 3.7. There was also a concern for underlying mass. ECG upon presentation on 10/17/2016 at 23:59 demonstrated atrial fibrillation versus atrial flutter with rapid ventricular response at a heart rate of 144 beats per minute. A repeat ECG on 10/18/2016 at 01:28 a.m. demonstrated sinus rhythm at 90 beats per minute. He converted to sinus rhythm without any intervention, but was taking sotalol at that point. Sotalol was initially ordered in the computer system; however, he did not receive any dose of sotalol throughout this hospital stay and therefore presumably his last dose was 10/17/2016 while incarcerated. Throughout his hospital stay, he has had multiple episodes of atrial flutter and at times what appears to be atrial fibrillation with rapid ventricular response. Over the last few days, he was in sinus rhythm until 10/19/2016 when he developed atrial fibrillation at 15:25 p.m. This persisted for approximately 2-1/2 hours before converting at 18:05 that day. He then remained in sinus according to telemetry, which was personally reviewed until yesterday 10/21/2016 at 12:05 p.m. He then developed what appears to be atrial fibrillation and then atrial flutter with rapid ventricular response. Yesterday, amiodarone was initiated at 14:29 p.m. He was also placed on a diltiazem drip. He remained in atrial flutter overnight and until this morning. He was, however, better rate controlled. This was noted on telemetry. Throughout his hospital stay, he has been evaluated by pulmonology, hematology, and vascular surgery. Dr. Fry on 10/20/2016 performed IVC filter implantation. On 10/21/2016, he performed an embolectomy of the left lower extremity with patch angioplasty of the left common femoral artery. There was an embolus found on the left external iliac and popliteal arteries. He was then taken back to the operating room earlier today and underwent once again a left lower extremity embolectomy. When he returned from the operating room, he is intubated and found to be in atrial flutter with rapid ventricular response with heart rates in the 140s. He remains on an amiodarone drip and also diltiazem drip at 10 mg per hour. He is also requiring pressor support in the form of Levophed. It appears as though that he was intubated for his first embolectomy on 10/21/2016 and has remained mechanically ventilated since then. History has been obtained through conversation with the transport pilot, Dr. Coleman as well as reviewing several records in the hospital electronic record. Currently, the patient is unable to provide any history as he is currently sedated and mechanically ventilated. REVIEW OF SYSTEMS: As above and otherwise unobtainable due to the patient's sedated state on mechanical ventilator. PAST MEDICAL HISTORY: 1. Paroxysmal atrial flutter/fibrillation. 2. Possible pulmonary malignancy. 3. Probable hypercoagulable state with recurrent pulmonary emboli while supratherapeutic with INR and then while on Lovenox, left lower extremity arterial emboli. 4. Colon cancer in 2004 with apparent chemotherapy and radiation. 5. Hypothyroidism. 6. COPD on 2 liters supplemental oxygen chronically. 7. Peripheral vascular disease. 8. Osteoarthritis. CURRENT MEDICATIONS: Include, 1. Amiodarone drip at 0.5 mg per hour. 2. Diltiazem drip at 10 mg per hour. 3. Azithromycin IV. 4. Ceftriaxone IV. 5. Fentanyl IV. 6. Heparin drip per protocol. 7. Insulin. 8. Synthroid 225 mcg p.o. daily. 9. Levophed titrated for blood pressure support. 10. Nortriptyline 10 mg p.o. at bedtime. 11. Protonix 40 mg IV daily. ALLERGIES: LISTED ASPIRIN, PROCAINE AND ROSUVASTATIN. SOCIAL HISTORY: Obtained from the chart as he is unable to provide a history. It states that he is a former smoker and currently resides at [facility]. FAMILY HISTORY: Unobtainable due to the patient's mental status. PHYSICAL EXAMINATION: VITAL SIGNS: Temperature 36.6 degrees, heart rate 141 beats per minute, respiration rate 26, blood pressure 96/63 mmHg, and oxygen saturation 96% on mechanical ventilation. I's and O's positive 1.3 liters yesterday. Weight is 69.6 kg. GENERAL: He is sedated, in no acute distress. He does open his eyes on command. HEENT: Anicteric sclerae. NECK: No appreciable JVD. There is a central line in the right neck. Normal carotid upstrokes bilaterally. No bruits audible. CARDIAC EXAMINATION: PMI was nonpalpable. There was no ventricular heave, tachycardic and regular, normal S1 and S2. There were no audible murmurs, rubs or gallops. LUNGS: Clear to auscultation bilaterally without wheezes, rales or rhonchi. ABDOMEN: Soft, nontender, and nondistended, very little bowel sounds at this time. EXTREMITIES: The right radial artery has an arterial line in place. Very faint left radial pulse. No cyanosis of the upper extremities. The left distal lower extremity/foot is cold and very pale. The plantar surface of the foot is cyanotic. There is no palpable pulse and according to nursing staff, no dopplerable pulse. The right lower extremity does have a dopplerable pulse as monitored by the nursing staff. There is no palpable pulse. There is trace bilateral lower extremity edema. LABORATORY DATA: Sodium 132, potassium 4.1, BUN 16, creatinine 0.6, and magnesium 1.9. ProBNP on presentation 1130. Troponin on presentation was undetectable. Most recent ABG from this morning at 07:47 a.m., pH 7.4, pCO2 of 40, pO2 of 105, and bicarbonate 25. White blood cell count 19.9, hemoglobin 9.8, and platelets 332. PTT 79. His most recent TSH level was on 09/04/2016 and it was 3.21. Telemetry over the past several days was personally reviewed. Several ECGs were personally reviewed as noted above. His most recent ECG was on 10/18/2016 at 09:35 a.m. demonstrating atrial flutter with rapid ventricular response at 142 beats per minute; however, he has had episodes of sinus rhythm since that time as noted in the HPI. Most recent chest x-ray personally reviewed from 10/22/2016 at 06:55 a.m. Bibasilar airspace opacities, especially the left. Radiology has reported progression of pulmonary edema and bibasilar airspace opacities, small right pleural effusion unchanged. No pneumothorax. Most recent echocardiogram report reviewed. Echocardiogram done 07/30/2016 reports a normal LV systolic function with an EF of 55%-60%. Calcified fixed mass involving the A2 segment of the anterior mitral leaflet. It was reported as most consistent with calcified nodule. Moderate aortic valve sclerosis, but no significant stenosis. This was a transesophageal echo performed by Dr. Guzman. ASSESSMENT AND PLAN: 1. Paroxysmal atrial flutter with rapid ventricular response: He has paroxysmal atrial flutter and fibrillation according to telemetry and records. The predominant rhythm appears to be atrial flutter. He has been in atrial flutter since yesterday at 12:05 p.m. He was rate controlled overnight with diltiazem drip and amiodarone drip. Now that he is postop he is much more tachycardic and at the present time, more hypotensive than he was just 1 hour ago. For this reason, will re-bolus amiodarone at 150 mg IV and continue amiodarone drip. Continue diltiazem drip if blood pressure allows. Hopefully, as amiodarone is loaded over time, his heart rate will improve and hopefully he will convert to sinus rhythm. If more rate control is needed in the meantime, can add digoxin. Hypotension has limited the use of beta-blockers. He is on anticoagulation for stroke risk reduction in the form of heparin. If he becomes unstable compared to current status, could urgently electrically cardiovert, however, that is not indicated at this time. He was on sotalol 80 mg twice daily on presentation; however, he was still having paroxysmal episodes of atrial arrhythmias. Will offer amiodarone currently as it can be given IV and hopefully achieve rhythm control more quickly given. Echocardiogram is pending. 2. Hypercoagulable state: There is a concern for malignancy and hematology/oncology is following. There is plan for bronchoscopy at some point according to records and discussions with critical care team. He is currently on heparin. He reportedly has formed thrombus while on therapeutic and supertherapeutic doses of Coumadin as well as Lovenox. 3. Hypotension: May be multifactorial. Etiology not certain. He is on pressor support managed by the critical care team. 4. Disposition: Dr. Guzman, who has followed him throughout his previous hospitalizations, will continue his cardiology care tomorrow. Plan of care has been discussed with Dr. Coleman as well as nursing staff, Татьяна. Highly complex medical issues. Cardiology will continue to follow. Sixty minutes critical care time was spent in helping coordinate care, reviewing multiple records, telemetry, imaging, and ECGs. Thank for allowing me to participate in care of Mr. Crook.
[2016-10-22] MEDS: PANTOprazole INJ 40 MG in DEXTROSE 5% 100ML IV SCH ×2 (17:40→21:34)
[2016-10-22] MEDS ORDERED: DILTIAZEM HCL 5 MG/ML 5 ML VIAL IV STA (18:17)
[2016-10-22] MEDS: FENTANYL 1250MCG/250ML NSS 250 ML IV PRN (20:19)
[2016-10-22] MEDS ORDERED: DOCUSATE SODIUM 100 MG/10 ML UDC PO SCH (21:00)
[2016-10-22] MEDS: NORTRIPTYLINE HCL 10 MG CAP PO SCH (21:33)
[2016-10-22 22:35] LABS: PARTIAL THROMBOPLASTIN RATIO 1.6
[2016-10-22] MEDS ORDERED: HEPARIN IV BOLUS 3,000 UNIT in SYRINGE 0 ML IV STA (22:49)
[2016-10-23] VITALS (42 sets, daily range): BP systolic 73–278; BP diastolic 46–278; PULSE 74–130; TEMP 37–37.5; O2SAT 87–100
[2016-10-23] MEDS: IPRATROPIUM BROMIDE HFA INHALER INH SCH ×4 (03:08→21:00)
[2016-10-23] MEDS: ALBUTEROL HFA 8 GM INHALER INH SCH ×4 (03:08→21:00)
[2016-10-23] MEDS: PANTOprazole INJ 40 MG in DEXTROSE 5% 100ML IV SCH ×5 (04:05→23:07)
[2016-10-23] MEDS: NOREPINEPHRINE BIT INJ 8 MG in DEXTROSE 5% 500ML 500 ML IV PRN ×2 (04:06→21:18)
[2016-10-23 05:25] LABS: HEMATOCRIT 25.3 % (42-52); MEAN CELL VOLUME 86.6 fL (80-100); MEAN CORPUSCULAR HEMOGLOBIN 29.1 pg (25-34); MEAN CORPUSCULAR HGB CONC 33.6 g/dl (32-36); MEAN PLATELET VOLUME 9.8 fL (7.4-10.4); PLATELET COUNT 256 K/uL (130-400); RED BLOOD COUNT 2.92 M/uL (4.7-6.1); WHITE BLOOD COUNT 20.86 K/uL (4.8-10.8)
[2016-10-23] MEDS: LEVOTHYROXINE 75 MCG TAB PO SCH (05:28)
[2016-10-23 05:41] LABS: INR 1.3 (0.9-1.1); PARTIAL THROMBOPLASTIN RATIO 1.9; PROTHROMBIN TIME (PATIENT) 14.2 SECONDS (9.0-12.0)
[2016-10-23 05:49] LABS: BUN/CREATININE RATIO 19.3 (10-20); CALCIUM 7.3 mg/dl (8.5-10.1); CREATININE 0.78 mg/dl (0.60-1.40); MAGNESIUM 1.8 mg/dl (1.8-2.4); PHOSPHORUS 2.9 mg/dl (2.5-4.9); POTASSIUM 4.4 mmol/L (3.5-5.1)
[2016-10-23 06:56] LABS: COMPLETE YES; EOSINOPHIL % 0.9 %; LYMPHOCYTE % 4.3 %; META ABS # 0.19 K/uL (0-0); METAMYELOCYTE % 0.9 %; MYELOCYTE % 1.7 %; NEUTROPHILS % 83.5 %; POLYCHROMASIA 1+
[2016-10-23] MEDS: INSULIN ASPART 100 UNITS/ML 3 ML PEN SC SCH ×4 (07:42→21:00)
[2016-10-23] MEDS: DOCUSATE SODIUM 100 MG/10 ML UDC PO SCH ×2 (08:41→21:32)
[2016-10-23] MEDS: CHLORHEXIDINE GLUCONATE 0.12% 480 ML MT SCH ×2 (08:42→21:32)
[2016-10-23] MEDS: AZITHROMYCIN IV 500 MG in DEXTROSE 5% 250ML 250 ML IV SCH (08:43)
--- NOTE | 2016-10-23 08:56 | DIAGNOSTIC IMAGING REPORT ---
CHEST ONE VIEW PORTABLE CLINICAL HISTORY: Abnormal chest x-ray. Respiratory failure. COMPARISON STUDY: 10/22/2016 FINDINGS: There is a right internal jugular central venous catheter with its tip at the level of the superior vena cava. There is an endotracheal tube with its tip 6 cm above the eli. There is a nasogastric tube the tip of which is difficult to visualize. There is an azygos fissure. The heart is normal in size. There is a small left pleural effusion. There is underlying pulmonary emphysema. There are improving bilateral pulmonary airspace opacities/edema.[ IMPRESSION: Continued slight further improvement in the bilateral pulmonary airspace opacities/edema. Electronically signed by: Aramis Lassiter M.D. 10/23/2016 8:55 AM Dictated Date/Time: 10/23/2016 8:53 AM
[2016-10-23] MEDS ORDERED: FUROSEMIDE 40 MG/4 ML VIAL IV STA ×2 (09:09→19:08)
[2016-10-23] MEDS: AMIODARONE / D5W 200 ML IV SCH ×2 (09:28→21:17)
[2016-10-23] MEDS: POLYETHYLENE (MIRALAX) 17 GM PACK PO SCH ×2 (09:28→21:33)
[2016-10-23 09:55] LABS: ISTAT ALLEN TEST Pass; ISTAT ARTERIAL BLOOD GAS HCO3 24 meq/L (19-24); ISTAT ARTERIAL BLOOD GAS PCO2 41 mmHg (35-46); ISTAT ARTERIAL BLOOD GAS PO2 108 mmHg (80-95); ISTAT ARTERIAL BLOOD GAS pH 7.39 (7.35-7.45); ISTAT CARBON DIOXIDE 26 mEq/l (24-31); ISTAT DELIVERY SYSTEM Ventilator; ISTAT FIO2 50 %; ISTAT PEEP 8; ISTAT RATE 20; ISTAT SITE L Radial; VE 10.8; Vt 500
--- NOTE | 2016-10-23 10:28 | Family Medicine Progress Note ---
Progress Note Date of Service Oct 23, 2016. Subjective Pt evaluation today including: conversation w/ patient, physical exam, chart review, lab review The patient was seen and examined at bedside. No acute overnight events. Pt remains intubated. S/p 2nd LLE arterial revascularization with poor outcome. Patient is able to answer questions by slight nodding and shaking of his head. Patient was asked if he was comfortable - nodded yes. Patient was asked if he was in any pain - nodded yes. Patient was told about his medication course, complications and therapy and asked if he had any questions. Patient shook head no. Patient was asked if he wants the TV on - shook head yes. Patient was asked if he wanted to change the channel - patient shook head no. Constitutional: No chills, No fever Respiratory: No cough, No shortness of breath, No sputum, No wheezing Objective Physical Exam General Appearance: WD/WN, no apparent distress, + pertinent finding (Pt is intubated. ) Respiratory/Chest: chest non-tender, lungs clear (anteriorly) Cardiovascular: no JVD, no murmur, + irregularly irregular Abdomen: non tender, soft Extremities: + pertinent finding (LLE is cold up until the left knee cap. White, dressing from the vascular surgery are still in place. No evidence of bleeding. RLE is warm to palpation with good pulses. Cannot palpated LLE pulse. Patient can move hands on command but is restrained at present. ) Neurologic/Psychiatric: alert, + pertinent finding (Patient is oriented. Nods yes/no to questions. Tracks with eyes.) Assessment and Plan 70M with PMHx of chronic atrial flutter on Coumadin, COPD and with a longstanding smoking history [facility] the hospital complaining of SOB, cough and hemoptysis x 2days. CTA of the chest showed multiple right PEs and consolidation of the LLL. INR on admission was supratherapeutic (3.7). PE in setting of elevated INR is suspicious for underlying hypercoagulable state. Hospital course is significant for continued hypoxia and Afib with RVR. Left arterial US was positive for acute occlusion of popliteal artery. 10/20/2016- Wednesday - Dr. Fry was consulted and patient received an IVC filter. 10/21/2016 - Wednesday- Revascularization of the LLE. Was found to be in Afib post op. 10/22/2016- - Repeat revascularization from new occlusion. As noted in Dr. Fry's chart, pre-op prognosis was poor. 10/23/2016 - Patient resting comfortably, with continued mottling of the LLE. New Onset Hypotension - Not tachycardic, pt nods "yes" when asked if he is comfortable. - Pt may be becoming septic due to left lower extremity, unlikely to be dehydrated due to positive fluid intake over past several days. May also be due to Afib medications (Amiodarone + Diltiazem) - Pt is on Azithromycin and Ceftriaxone for pneumonia. Management uncertain as prognosis is poor and aggressive management may be futile - pt may need left leg amputation. Will defer to surgery's recommendation. - Pt is on Levophed drip at present, tapering down. Left Lower Extremity Artery Occlusion - Patient at present denies left leg pain. Left leg is pulseless and cold below the left knee. - Repeat surgical revascularization of the left leg was unsuccessful, prognosis is poor. Acute on Chronic Afib/Flutter restarting on 10/21/16 - Rate in the 80s, pt is on heparin for Anticoagulation. - Last ECHO in Jul 2016 showed Normal EF and mitral valve calcification - Patient started on Amiodarone drip. Diltiazem is added with BP constraints. Consider digoxin if rate elevates. Cardiology has signed off. Pulmonary Embolism - Pt remains ventilated with good sats, good lung sounds, X-ray today showed slight resolution of consolidation. - IVC filter in place due to failure of outpatient anticoagulation on Coumadin. There is a DVT in the left lower extremity (popliteal and peroneal veins). - c/w Heparin Drip for anticoagulation. Will need to monitor hemoglobin due to possible GI bleed, thrombotic risk > risk from GI bleed. Hypercoagulable State suspicious for Malignancy - Pt has DVT and PE despite supratherapeutic INR. - CTA revealed prominent mediastinal and hilar nodes - upon Dr. Casillas's review there might have been adenopathy extended two years prior on previous imagining, LLL consolidation is a new finding. - s/p unsuccessful repeat revascularization of left leg, prognosis is poor. - No plans for bronchoscopy at present. LLL Consolidation - Could be 2/2 PE vs aspiration pneumonia vs malignancy - c/w Ceftriazone and Azithromycin. (Day #6) - Blood cultures are negative. - c/w Flutter valve, chest physiotherapy and incentive spirometry DM2 - Pharmacy on board for glucose control. Hypothyroid - TSH and T4 normal in Sep. C/w Synthroid 225mcg DVT/GI Prophylaxis Heparin Drip, Pantroprazole 40mg Q5IV. Dispo: ICU, Prisoner, full code. Resident Physician Supervision Note: I interviewed and examined the patient. Discussed with Domo Lamar MD and agree with findings and plan as documented in the note. Any exceptions or clarifications are listed here: None Pt here with DVT/PE arriving already on therapeutic anticoagulation and has 2 arterial emboli to leg, afib requiring cardioversion. Most recent attempt at embolectomy to left leg was unsuccessful, he has ischemic left leg currently. During these events developed acute respiratory failure with subsequent ventilation and management in icu. Despite all this no pain. Vitals noted CAr is regular at present lungs are coarse left leg has cyantotic foot, no pulses but some warmth to thigh thrombophilia, did have a ivc filter, ac, unfortunately likley to succumb to ischemic limb unless demarcates at a level compatable with amputation, heparin gtt and continue ceftriaxone Shock maybe septic or from ischemia causing acidosis, on nor epi gtt diabetes with insulin gtt and diabetic pharmacy management afib, s/p cardioversion while therapeutic ac, amiodarone gtt and transition to enteral amiodarone when able Documented By: Dieudonne Panda Resident Involvement: Resident Care Provided Care Provided: Adult Hospital Medicine
[2016-10-23] MEDS: FENTANYL 1250MCG/250ML NSS 250 ML IV PRN ×2 (10:42→23:27)
[2016-10-23 11:10] LABS: HEMATOCRIT 23.6 % (42-52)
[2016-10-23] MEDS ORDERED: FUROSEMIDE INJ 20 MG in SYRINGE 0 ML IV ONE (12:00)
[2016-10-23] MEDS: METHYLPREDNISOLONE IV 40 MG in SYRINGE 0 ML IV SCH ×2 (12:03→20:49)
--- NOTE | 2016-10-23 12:06 | CRITICAL CARE PROGRESS NOTE ---
DATE: 10/23/2016 SUBJECTIVE: The patient's care was discussed in detail on multidisciplinary rounds. Yesterday, after returning from the operating room, the heparin infusion was resumed. He started to have bloody drainage from his NG tube and was started on a Protonix infusion. He converted to normal sinus rhythm last evening and his Cardizem was weaned down to 5 mg per hour. He is not having any significant endotracheal tube secretions and has not had a bowel movement in the past several days. He remains on the following infusions: Heparin, Cardizem, amiodarone, Levophed, Protonix and fentanyl as well as insulin. PHYSICAL EXAMINATION: VITAL SIGNS: Maximum temperature 37.3, heart rate 80s, respiratory rate 18-21, blood pressures is 97-119/40s-50s, oxygen saturation 97%. A 24-hour fluid balance is positive 2.9 liters. VENTILATOR SETTINGS: Assist control rate 20, tidal volume 500, FiO2 50%, and PEEP 8. NEUROLOGICAL: He will awaken and nod his head to yes and no questions. His Cam assessment is positive. He moves all 4 extremities very very weakly. HEENT: There is an endotracheal tube and orogastric tube in place and a right internal jugular triple lumen catheter. LUNGS: Have decreased breath sounds throughout, particularly in the bases. No rales, rhonchi or wheezes. HEART: Regular rate and rhythm. No murmurs noted. ABDOMEN: Soft, nondistended, nontender with active bowel sounds. EXTREMITIES: Show the left groin dressing to be clean, dry and intact. Left foot is cool and mottled from about the ankle distally and pulses are not palpable nor are they audible by Doppler, per the RN. Popliteal pulse is present. The right leg is warm with trace pretibial edema. Upper extremities show 2+ edema of the hands. He is restrained. LABORATORY DATA: White blood cell count 20.86, hemoglobin 8.5, hematocrit 25.3, platelets 256; there is a left shift. Sodium 129, potassium 4.4, chloride 94, CO2 27, BUN 15, creatinine 0.78, blood sugar 147-165. Magnesium 1.8, phosphorus 2.9. PTT 49.5. pH 7.39, pCO2 41, pO2 108, HCO3 24. IMAGING DATA: Portable chest x-ray is not available to be reviewed. By report, the bilateral interstitial infiltrates are improved and the endotracheal tube is 6 cm above the eli. MICROBIOLOGY DATA: Expectorated sputum Gram stain shows no organisms, few polys. Blood cultures October 18 show no growth. MEDICATIONS AND INFUSIONS: Acetaminophen, albuterol, amiodarone, azithromycin day 6, ceftriaxone day 6, chlorhexidine, diltiazem, Colace, fentanyl, heparin, insulin sliding scale, IV insulin, Atrovent, norepinephrine, nortriptyline, Zofran, Protonix, MiraLax. ASSESSMENT AND PLAN: 1. Acute hypoxemic respiratory failure secondary to pneumonia. Day 6 of antibiotics. There are no plans for bronchoscopy. 2. Postop day #1 status post embolectomy of the left lower extremity and postop day #2 status post initial embolectomy of the left lower extremity. The leg looks better, but the foot is more mottled. He is being anticoagulated with heparin infusion. 3. Pulmonary embolism and left lower extremity deep venous thrombosis. 4. Atrial fibrillation with rapid ventricular response, now back in normal sinus rhythm. Cardizem is being discontinued by the cardiology service with plans for eventually changing him to enteral amiodarone. 5. Hypotension, I suspect this is multifactorial with an element of systemic inflammatory response syndrome from his ischemic foot ____ Levophed is being weaned. I do not think at this point he is septic. 6. Hyperglycemia, controlled with an insulin infusion. 7. Hypercoagulable state with concern for malignancy. 8. History of squamous cell carcinoma of the rectum in 2004, status post chemotherapy and radiation therapy. 9. Status post inferior vena cava filter October 20. 10. History of chronic obstructive pulmonary disease with continuous oxygen as an outpatient. 11. Gastrointestinal bleed with slowly decreasing hemoglobin. At this point, treating the thrombosis with heparin outweighs the risk of bleeding from the gastrointestinal tract. 12. Constipation. PLAN: NEUROLOGIC: Decrease the fentanyl infusion. PULMONARY: I have ordered a pulse dose of steroids 40 mg IV q. 8 hours x3 doses secondary to his COPD. Continue antibiotics and bronchodilators. CARDIOVASCULAR: Wean the Levophed. Hopefully, he will remain in sinus rhythm but if he does not consider rebolusing with amiodarone or digoxin loading. Continue off diltiazem. GASTROINTESTINAL: Continue to hold tube feed secondary to the GI bleed, MiraLax is now scheduled. Consider senna. ENDOCRINE: Continue insulin infusion, particularly in light of the pulse dose steroids. RENAL: I would like to give him some Lasix; however, I would also like to see more improvement of his blood pressure before doing so. HEMATOLOGY: Continue heparin infusion and follow serial blood counts. He has remarkable leukocytosis with a left shift. This may be secondary to his foot. Continue to follow. INFECTIOUS DISEASE: Stop the azithromycin and continue Rocephin for another day to total 7 days. I suspect the white blood cell count may be due to his lower extremity ischemia. Overall, this man is very ill. I do not know if he is going to survive this illness. Continue supportive care. Critical care time 60 minutes.
--- NOTE | 2016-10-23 12:17 | CARDIOLOGY PROGRESS NOTE ---
DATE: 10/23/2016 TIME: 11:33 a.m. SUBJECTIVE: Mr. Crook remains on a mechanical ventilator. He is awake, however and is able to shake his head yes or no. He indicated that he is not experiencing chest pain. He indicated that he was not experiencing any abdominal pain or foot pain. When asked about shortness of breath, he shrugged his shoulders a bit. Telemetry was personally reviewed. He converted to sinus rhythm last evening and has remained in sinus rhythm. No ventricular arrhythmia. OBJECTIVE: VITAL SIGNS: Temperature 37.5 degrees, heart rate 86 beats per minute, respiratory rate 15, blood pressure 115/58 mmHg, and oxygen saturation 97% on a mechanical ventilator with an FiO2 of 0.5. I's and O's positive 2.9 liters yesterday. Weight is 70.4 kg. GENERAL: No acute distress. He is alert and able to answer questions by nodding his head yes or no. CARDIAC EXAM: No ventricular heave. Regular, normal S1 and S2. There were no audible murmurs, rubs or gallops. LUNGS: Relatively clear on anterior auscultation bilaterally. ABDOMEN: Soft, nontender, and nondistended. Hypoactive bowel sounds. EXTREMITIES: Trace bilateral lower extremity edema. His left foot is cool and cyanotic. There are no palpable distal pulses. Nursing staff is able to have a top a dopplerable pulse in the left popliteal as well as the right dorsalis pedis pulse. MEDICATIONS: Include diltiazem drip, amiodarone drip, ceftriaxone 1 gram IV daily, azithromycin 500 mg IV daily, Levophed drip, fentanyl drip, heparin drip, insulin, Synthroid 225 mcg p.o. daily, and Protonix 40 mg IV q. 5 hours. LABORATORY DATA: White blood cell count is 20.86, hemoglobin 8.5, and platelets 256. Sodium 129, potassium 4.4, BUN 15, and creatinine 0.78. Lactic acid 1.2. Magnesium 1.8. INR is 1.3 and PTT 49.5. ECG personally reviewed from this morning demonstrating sinus rhythm at 89 beats per minute. Right bundle branch block. Echocardiogram performed today: This was preliminarily reviewed, but will be formally reviewed with measurements later today. Left ventricular systolic function appears normal. The right ventricle appears to be dilated with reduced systolic function. ASSESSMENT AND PLAN: 1. Paroxysmal atrial flutter with rapid ventricular response: He is converted on amiodarone. Continue amiodarone drip for now. If he is doing well tomorrow and able to tolerate oral medications, can start amiodarone 400 mg p.o. t.i.d. and overlap with IV drip for 1 day before discontinuing IV amiodarone. Would continue loading of the amiodarone for a total of 10 days, with the first day being yesterday when he received his first 24 hours of amiodarone. Continue anticoagulation for stroke risk reduction. He is currently on heparin. 2. Hypercoagulable state: There is a concern for malignancy and he is being followed by pulmonology, hematology/oncologic, and critical care team. He has developed pulmonary embolism with a supratherapeutic INR and then also lower extremity arterial thrombi while on Lovenox. Currently on heparin. 3. Hypotension: Likely multifactorial. Etiology not certain. Diltiazem drip will be discontinued as he no longer requires rate control for atrial flutter now that he is in sinus. This should help improve his blood pressures somewhat. 4. Volume status: He does not appear to be hypovolemic. Difficult to know his true fluid volume status. Monitor I's and O's closely and diuresis as needed. 5. Right ventricular strain/dilation: Echocardiogram images were personally reviewed as noted above. Full report to follow up; however, his right ventricle does appear dilated with reduced systolic function. He does have a documented pulmonary emboli. It does appear more dilated on preliminary review compared to prior study on 07/28/2016. He may be a bit preload dependent and therefore, if diuresing, would initially try a gentle diuresis if possible if needed in the future. 6. Disposition: Dr. Guzman is out of hospital today and will remain out of the hospital for the next 3-4 days. If there are any questions or concerns over the next 2 days, please do not hesitate to call the on-call furniture cleaner for [facility]. Plan care has been discussed with Dr. Panda and also Dr. Coleman of the hospitalist and candy cooker helper services respectively.
[2016-10-23 12:43] LABS: URINE APPEARANCE CLEAR (CLEAR); URINE BILIRUBIN NEG (NEG); URINE COLOR YELLOW; URINE NITRITE NEG (NEG); URINE PH 5.5 (4.5-7.5); URINE SPECIFIC GRAVITY 1.016 (1.000-1.030); UROBILINOGEN NEG (NEG)
[2016-10-23 12:51] LABS: MANUAL MICROSCOPIC REQUIRED? NO; REVIEW REQ? YES
[2016-10-23 13:06] LABS: URINE EPITHELIAL CELL AUTO 0-5 /lpf (0-5)
[2016-10-23] MEDS: INSULIN REGULAR 250 UNITS in SODIUM CHLORIDE 0.9% 250ML 250 ML IV SCH (13:41)
[2016-10-23] MEDS: CEFTRIAXONE SOD INJ 1 GM in DEXTROSE 5% ADD-VANTAGE 50ML 50 ML IV SCH (13:42)
[2016-10-23 17:00] LABS: HEMATOCRIT 24.4 % (42-52)
[2016-10-23 17:24] LABS: BUN/CREATININE RATIO 16.3 (10-20); CALCIUM 7.7 mg/dl (8.5-10.1); CREATININE 0.82 mg/dl (0.60-1.40); POTASSIUM 4.4 mmol/L (3.5-5.1)
[2016-10-23] MEDS ORDERED: DILTIAZEM HCL 5 MG/ML 5 ML VIAL ONE ×3 (17:55→21:03)
--- NOTE | 2016-10-23 17:56 | ECHOCARDIOGRAM REPORT ---
*NOTICE TO RECEIVING DEMOCRAT AGENCY This information is strictly Confidential and protected under [place] law. [place] law prohibits you from making any further disclosure of this information unless further disclosure is expressly permitted by the written consent of the person to whom it pertains or is authorized by law. A general authorization for the release of medical or other information is not sufficient for this purpose. Hospital accepts no responsibility if the information is made available to any other person, INCLUDING THE PATIENT. Interpretation Summary * Name: MITA FLETCHER [id number] Study Date: 10/23/2016 06:42 AM BP: 110/70 mmHg * Patient Location: .MSICU\S\E111\S\1 HR: 79 * : 1945 (M/d/yyy) Gender: Male Height: 68 in * Age: 70 yrs Ethnicity: [place] Weight: 153 lb * Ordering Physician: Marysol Coleman * Referring Physician: Frances DOHERTY * Performed By: Shama Dawkins RCS * * Reason For Study: AFIB * BSA: 1.8 m2 * -- Conclusions -- * 1. Normal left ventricular size with hyperdynamic systolic function. Estimated EF 65-70%. No regional wall motion abnormalities. Septal flattening during diastole suggests right ventricular volume overload. No left ventricular hypertrophy. * 2. Severely dilated right ventricle with reduced systolic function (not well visualized but probably at least moderately reduced). * 3. Calcified mass (approximately 1.3 x 0.85) noted on the anterior mitral leaflet. * 4. Sclerotic aortic valve without significant stenosis. * 5. Pleural effusion. * 6. Technically difficult study, enhanced with IV Definity. * 7. Compared to prior study on 07/28/2016, right ventricle now appears severely dilated. Procedure Details * A complete two-dimensional transthoracic echocardiogram was performed (2D, M-mode, Doppler and color flow Doppler). * There were technical limitations due to patient'ssupine positioning while on mechanical ventilation * The study was technically difficult. * The study was technically limited. * A contrast injection of Definity was performed to improve assessment of LV function. * Contrast was injected into an intravenous site in the central line. * One vial of Definity ultrasound contrast was diluted in normal saline to a total volume of 10 ml. A total of '2' ml of solution was administered during imaging. * Lot # [id number] of Definity utilized for procedure. * Expiration date 1APR18. * The attending nurse who injected the contrast agent was Elvia SHAFER RN. Left Ventricle * Normal left ventricular size with hyperdynamic systolic function. Estimated EF 65-70%. No regional wall motion abnormalities. Septal flattening during diastole suggests right ventricular volume overload. No left ventricular hypertrophy. Right Ventricle * Severely dilated right ventricle with reduced systolic function (not well visualized but probably at least moderately reduced). Atria * The left atrial size is normal. * Right atrial size is normal. Mitral Valve * There is mild mitral annular calcification. * Calcification (approximately 1.3 x 0.85) noted on the anterior mitral leaflet. * There is no mitral valve stenosis. * There was no significant mitral regurgitation visualized, however, this was poorly visualized. Tricuspid Valve * The tricuspid valve is not well visualized, but is grossly normal. * There is no tricuspid stenosis. * Significant tricuspid regurgitation is absent. Aortic Valve * Sclerotic aortic valve without significant stenosis. * No hemodynamically significant valvular aortic stenosis. * There is no significant aortic regurgitation. Pulmonic Valve * The pulmonic valve is not well visualized. * There is no pulmonic valvular stenosis. * Mild pulmonic valvular regurgitation. Great Vessels * The aortic root is normal size. Pericardium/Pleural * There is no pericardial effusion. * Pleural effusion. Great Vessels * Normal IVC. MMode 2D Measurements and Calculations IVSd 0.97 cm IVSs 1.3 cm LVIDd 3.9 cm LVIDs 2.2 cm LVPWd 0.98 cm LVPWs 1.4 cm IVS/LVPW 0.99 FS 43.8 % EDV(Teich) 64.0 ml ESV(Teich) 15.5 ml EF(Teich) 75.7 % EDV(cubed) 57.2 ml ESV(cubed) 10.1 ml EF(cubed) 82.3 % % IVS thick 31.9 % % LVPW thick 45.1 % LV mass(C)d 116.1 grams LV mass(C)dI 63.7 grams/m\S\2 LV mass(C)s 88.4 grams LV mass(C)sI 48.5 grams/m\S\2 SV(Teich) 48.5 ml SI(Teich) 26.6 ml/m\S\2 SV(cubed) 47.1 ml SI(cubed) 25.8 ml/m\S\2 Ao root diam 3.5 cm Ao root area 9.8 cm\S\2 ACS 1.2 cm LA dimension 2.9 cm LA/Ao 0.82 Doppler Measurements and Calculations MV E max huy 65.6 cm/sec MV P1/2t max huy 77.8 cm/sec MV P1/2t 74.3 msec MVA(P1/2t) 3.0 cm\S\2 MV dec slope 307.0 cm/sec\S\2 MV dec time 0.19 sec Ao V2 max 113.3 cm/sec Ao max PG 5.3 mmHg Ao max PG (full) 4.1 mmHg LV V1 max PG 1.2 mmHg LV V1 max 54.3 cm/sec
[2016-10-23] MEDS ORDERED: DILTIAZEM HCL 5 MG/ML 5 ML VIAL IV STA (18:06)
[2016-10-23] MEDS ORDERED: NURSING VERBAL MED ORDER STA ×2 (18:17→18:28)
[2016-10-23] MEDS: FENTANYL CITRATE INJ 50 MCG/1 ML 2 ML VIAL IV PRN (18:28)
[2016-10-23] MEDS: DILTIAZEM HCL INJ 125 MG in DEXTROSE 5% 100ML IV PRN (18:36)
--- NOTE | 2016-10-23 18:42 | DIAGNOSTIC IMAGING REPORT ---
CHEST ONE VIEW PORTABLE CLINICAL HISTORY: hypoxia, check ETT tube position COMPARISON STUDY: 10/23/2016 FINDINGS: Endotracheal tube is 2 cm above the eli. There is nasogastric tube inferior to the diaphragm. Slightly progressive parenchymal infiltrative change left base. IMPRESSION: Endotracheal tube 2 cm above the eli. Slightly progressive infiltrative change left base. Electronically signed by: Domo Lucas M.D. 10/23/2016 6:40 PM Dictated Date/Time: 10/23/2016 6:39 PM
[2016-10-23] MEDS: PROPOFOL IV EMULSION 10 MG/ML 100 ML VIAL IV PRN (18:44)
--- NOTE | 2016-10-23 20:09 | Procedure Note ---
Procedure Note Procedure Date Oct 23, 2016. Procedure Description Procedure Name: Fiberoptic Bronchoscopy with BAL Procedure time out: side/site verified, patient ID confirmed, correct procedure Consent obtained: emergent consent implied Time of procedure: 19:30 Performed by: attending Indications: therapeutic Contraindications: none Description: Limited bronchoscopy performed emergently due to profound hypoxia and concern for mucous plug. The patient was already sedated with fentanyl and propofol. I passed the bronch into the ETT to find a small amount of thick secretions which were suctioned. I passed the bronch to the eli which was anatomically normal, and thn into the L mainstem and LLL bronchi. The LLL had a moderate amouont of thick secretions which were lavaged and suctioned. I also performed a BAL on the LLL. There was a small amount of bleeding from the area. The lingula was anatomically normal. I then passed the scope into the RUL bronchus , bronchus intermedius, RML and RLL bronchus. These were anatomically normal. The scope was then removed. Complications: none Patient tolerated procedure: well Post-procedure vital signs: reviewed and stable
[2016-10-23] MEDS: DILTIAZEM HCL 5 MG/ML 5 ML VIAL ONE ×2 (20:11→20:12)
[2016-10-23] MEDS ORDERED: NURSING VERBAL MED ORDER ONE ×2 (20:15→21:15)
[2016-10-23] MEDS: NORTRIPTYLINE HCL 10 MG CAP PO SCH (21:33)
[2016-10-24] VITALS (27 sets, daily range): BP systolic 11–300; BP diastolic 45–300; PULSE 59–86; TEMP 36.5–37.2; O2SAT 97–100
[2016-10-24] MEDS: IPRATROPIUM BROMIDE HFA INHALER INH SCH ×4 (01:27→20:36)
[2016-10-24] MEDS: ALBUTEROL HFA 8 GM INHALER INH SCH ×4 (01:27→20:36)
[2016-10-24] MEDS: PROPOFOL IV EMULSION 10 MG/ML 100 ML VIAL IV PRN (02:48)
[2016-10-24] MEDS: DILTIAZEM HCL INJ 125 MG in DEXTROSE 5% 100ML IV PRN ×2 (02:49→20:00)
[2016-10-24] MEDS: PANTOprazole INJ 40 MG in DEXTROSE 5% 100ML IV SCH ×2 (03:57→08:16)
[2016-10-24] MEDS: METHYLPREDNISOLONE IV 40 MG in SYRINGE 0 ML IV SCH (04:23)
[2016-10-24] MEDS: LEVOTHYROXINE 75 MCG TAB PO SCH (05:21)
[2016-10-24 06:40] LABS: PARTIAL THROMBOPLASTIN RATIO 1.7
--- NOTE | 2016-10-24 07:27 | PROGRESS NOTE ---
DATE: 10/24/2016 The patient is in the Intensive Care Unit, intubated. He had a bronchoscopy done by Dr. Coleman yesterday, it revealed some significant mucus plugging at the left base which was lavaged, small amount of bleeding in that area. Right lung actually looked fairly good. He is comfortable on the ventilator, is somewhat awake, and he is sedated. He did have an echocardiogram, revealed fairly well-preserved left ventricular function with an LVEF of 65%, severely dilated right ventricle, reduced right ventricular function, pleural effusion, with no significant valvular abnormalities noted. No pericardial effusions were noted. The inferior vena cava was unremarkable. Nonetheless, presently he seems to be comfortable and hemodynamically stable. MEDICATIONS: Noted. He has not had any arrhythmias. He continues to have ischemia to the left foot. VITAL SIGNS: His blood pressure is 117/54, pulse is 75 and regular, respiratory rate 20 on the ventilator, oxygen saturation 97%. His minute ventilation is about 11 liters with tidal volume of 500, FiO2 of 50%. Blood gas yesterday looked good with a pH 7.39, pCO2 of 41, pO2 of 108. I spoke with the nursing personnel, he had a fairly stable night last night. Sputum is scant. I\T\O is 3567 in, 2650 out. Weight 74.8 kilograms. He is up from 65.3 kilograms on 10/20/2016. He has had more in than out since 10/20/2016. PHYSICAL EXAMINATION: GENERAL: According to nurses' notes, he had a fairly good night last night. HEENT: Endotracheal tube is in good position. Nose exam unremarkable. Eye exam looks good with no conjunctivitis noted. No subcutaneous emphysema is noted. NECK: There is no neck vein distention or HJR. No nodes are palpable. HEART: Regular rate and rhythm. LUNGS: Reveal decreased breath sounds at the left base. ABDOMEN: Soft, nontender. EXTREMITIES: He continues to have ischemia to the left foot. Blood gas from yesterday noted. CBC is pending. Hemoglobin was only 8.3 yesterday. Sodium was 128. AFB and fungal smears are pending as is the BAL. Expectorated sputum from 10/22/2016 showed normal maxwell. Chest film continues to show left lower lobe infiltrative process. Endotracheal tube is in good position, 2 cm above the eli. That was from yesterday's film. The chest film from today is pending. IMPRESSION: 1. Respiratory failure. 2. Pulmonary embolism. 3. Left lower lobe pneumonia. 4. Ischemia left foot. 5. Severe right ventricular dysfunction. I do not know whether this is chronic or related to the recent pulmonary embolism. RECOMMENDATIONS: 1. At this point, I would continue with ventilator support and I would suggest a weaning trial once his sedation is discontinued and he is off all paralyzing agents. 2. At this point, I think anticoagulation still would be indicated unless he has significant hemoptysis because of the arrhythmia and the pulmonary embolism even though he has had a filter placed. That was done on 10/20/[address] Fry. 3. Increase nutritional support. I believe the best think we will do for him today will be to try weaning trials. Perhaps just CPAP or pressure support once he is off his sedatives and paralytic agents and see how he does with that. Overall, at this point, from a pulmonary standpoint, he is stable.
[2016-10-24 07:34] LABS: HEMATOCRIT 23.4 % (42-52); MEAN CELL VOLUME 85.1 fL (80-100); MEAN CORPUSCULAR HEMOGLOBIN 29.1 pg (25-34); MEAN PLATELET VOLUME 9.3 fL (7.4-10.4); PLATELET COUNT 263 K/uL (130-400); RED BLOOD COUNT 2.75 M/uL (4.7-6.1); WHITE BLOOD COUNT 23.31 K/uL (4.8-10.8)
[2016-10-24 07:40] LABS: MEAN CORPUSCULAR HGB CONC 34.2 g/dl (32-36)
[2016-10-24 07:55] LABS: CALCIUM 8.1 mg/dl (8.5-10.1); CREATININE 0.92 mg/dl (0.60-1.40); PHOSPHORUS 3.6 mg/dl (2.5-4.9); POTASSIUM 4.5 mmol/L (3.5-5.1)
[2016-10-24] MEDS: INSULIN ASPART 100 UNITS/ML 3 ML PEN SC SCH ×4 (08:00→20:51)
[2016-10-24 08:02] LABS: BASO % 0.1 %; BASO ABS # 0.03 K/uL (0-0.2); COMPLETE YES; IG% 3.9 %; LYMPH % 4.7 %; LYMPH ABS # 1.09 K/uL (1.2-3.4); MONO % 5.4 %; NEUT % 85.9 %; POLYCHROMASIA 1+
[2016-10-24] MEDS: DOCUSATE SODIUM 100 MG/10 ML UDC PO SCH ×2 (08:15→19:41)
[2016-10-24] MEDS: POLYETHYLENE (MIRALAX) 17 GM PACK PO SCH ×2 (08:16→19:41)
[2016-10-24] MEDS: AMIODARONE / D5W 200 ML IV SCH ×2 (08:19→20:52)
[2016-10-24] MEDS: CHLORHEXIDINE GLUCONATE 0.12% 480 ML MT SCH ×2 (08:19→19:40)
--- NOTE | 2016-10-24 08:48 | Progress Note ---
Progress Note Date of Service: Oct 24, 2016. Subjective Awake on vent, complaining of left foot pain Problem List Medical Problems: (1) Atrial flutter with rapid ventricular response Status: Acute (2) Chest pain Status: Acute (3) Dizzy Status: Acute (4) Hypotension Status: Acute (5) Hypothyroid Status: Acute (6) Left chest pressure Status: Acute (7) Pulmonary embolism Status: Acute (8) Rapid atrial fibrillation Status: Acute Objective Vital Signs Vital Signs Past 12 Hours Date Time Temp Pulse Resp B/P Pulse Ox O2 Delivery O2 Flow Rate FiO2 10/24/16 08:00 Mechanical Ventilator 60 10/24/16 08:00 60 10/24/16 07:36 60 10/24/16 06:00 75 20 117/54 97 107/57 10/24/16 05:00 59 20 121/51 99 10/24/16 05:00 60 10/24/16 04:26 126/56 132/85 10/24/16 04:24 100 Mechanical Ventilator 50 10/24/16 04:24 100 10/24/16 04:00 36.9 70 20 108/51 98 97/58 10/24/16 03:00 71 20 103/49 97 87/55 10/24/16 02:00 72 20 102/48 97 90/55 10/24/16 02:00 72 20 102/48 97 10/24/16 01:28 60 10/24/16 01:00 73 19 98/48 97 10/24/16 00:45 73 16 99/49 97 10/24/16 00:30 73 20 94/47 98 89/59 10/24/16 00:30 73 20 94/47 98 10/24/16 00:00 100 Mechanical Ventilator 50 10/24/16 00:00 100 10/24/16 00:00 36.5 73 20 98 83/54 10/23/16 23:43 74 20 94/47 97 10/23/16 23:30 74 20 100/47 98 10/23/16 23:00 75 20 99/46 98 88/54 10/23/16 22:30 74 20 94/48 98 Mechanical Ventilator 60 87/55 10/23/16 22:15 77 16 99/48 99 Mechanical Ventilator 60 83/56 10/23/16 22:00 77 22 96/48 99 Mechanical Ventilator 90 85/54 10/23/16 21:45 77 19 98/50 98 Mechanical Ventilator 90 84/54 10/23/16 21:30 77 19 96/48 99 Mechanical Ventilator 90 84/54 10/23/16 21:20 50 10/23/16 21:15 76 18 100/51 99 Mechanical Ventilator 90 85/55 10/23/16 21:00 126 20 104/61 98 Mechanical Ventilator 90 83/56 Exam Incisions clean and dry Leg perfused to just below ankle Left foot demarcating Intake & Output 8-Hour Column 10/23/16 10/23/16 10/24/16 15:59 23:59 07:59 Intake Total 1444 ml 941 ml 997 ml Output Total 1000 ml 1250 ml 1050 ml Balance 444 ml -309 ml -53 ml 24-Hour Column 10/24/16 07:59 Intake Total 3382 ml Output Total 3300 ml Balance 82 ml Laboratory and Microbiology Results Past 24 Hours Test 10/23/16 09:18 10/23/16 09:24 10/23/16 10:30 10/23/16 11:02 Range/Units Blood Gas Sample Site L Radial Bedside Blood Gas pH (LAB) 7.39 7.35-7.45 Bedside Blood Gas pCO2 (LAB) 41 35-46 mmHg Bedside Blood Gas pO2 (LAB) 108 80-95 mmHg Bedside Blood Gas HCO3 (LAB) 24 19-24 meq/L Bedside Blood Gas Total CO2 26 24-31 mEq/l Bedside Blood Gas Base Excess (LAB) -1.0 -9-1.8 meq/L Bedside Blood Gas O2 Saturation 98.0 90-95 % Tio Test Pass Oxygen Delivery Device Ventilator Bedside Oxygen Rate (breaths/min) 20 Blood Gas Minute Ventilation 10.8 Bedside FiO2 50 % Blood Gas Tidal Volume 500 Blood Gas PEEP 8 Bedside Glucose (other) 165 70-99 mg/dl Urine Color YELLOW Urine Appearance CLEAR CLEAR Urine pH 5.5 4.5-7.5 Urine Specific [place] 1.016 1.000-1.030 Urine Protein NEG NEG Urine Glucose (UA) NEG NEG Urine Ketones NEG NEG Urine Occult Blood 2+ NEG Urine Nitrite NEG NEG Urine Bilirubin NEG NEG Urine Urobilinogen NEG NEG Urine Leukocyte Esterase SMALL NEG Urine WBC (Auto) 10-30 0-5 /hpf Urine RBC (Auto) 10-30 0-4 /hpf Urine Hyaline Casts (Auto) 1-5 0-5 /lpf Urine Epithelial Cells (Auto) 0-5 0-5 /lpf Urine Bacteria (Auto) 1+ NEG Urine Renal Epithelial Cells 0-5 /lpf Urine Pathogenic Casts 0 /lpf Hemoglobin 8.2 14.0-18.0 g/dL Hematocrit 23.6 42-52 % Test 10/23/16 11:23 10/23/16 15:35 10/23/16 16:52 10/23/16 20:45 Range/Units Bedside Glucose (other) 187 166 197 70-99 mg/dl Hemoglobin 8.3 14.0-18.0 g/dL Hematocrit 24.4 42-52 % Sodium Level 128 136-145 mmol/L Potassium Level 4.4 3.5-5.1 mmol/L Chloride Level 92 98-107 mmol/L Carbon Dioxide Level 29 21-32 mmol/L Anion Gap 7.0 3-11 mmol/L Blood Urea Nitrogen 13 7-18 mg/dl Creatinine 0.82 0.60-1.40 mg/dl Est Creatinine Clear Calc Drug Dose 83.4 ml/min Estimated GFR () 105.3 Estimated GFR (Non- 90.9 BUN/Creatinine Ratio 16.3 10-20 Random Glucose 159 70-99 mg/dl Calcium Level 7.7 8.5-10.1 mg/dl Test 10/24/16 05:14 10/24/16 05:51 10/24/16 07:27 Range/Units Bedside Glucose (other) 205 70-99 mg/dl Activated Partial Thromboplast Time 44.6 21.0-31.0 SECONDS Partial Thromboplastin Ratio 1.7 White Blood Count 23.31 4.8-10.8 K/uL Red Blood Count 2.75 4.7-6.1 M/uL Hemoglobin 8.0 14.0-18.0 g/dL Hematocrit 23.4 42-52 % Mean Corpuscular Volume 85.1 80-100 fL Mean Corpuscular Hemoglobin 29.1 25-34 pg Mean Corpuscular Hemoglobin Concent 34.2 32-36 g/dl Platelet Count 263 130-400 K/uL Mean Platelet Volume 9.3 7.4-10.4 fL Neutrophils (%) (Auto) 85.9 % Lymphocytes (%) (Auto) 4.7 % Monocytes (%) (Auto) 5.4 % Eosinophils (%) (Auto) 0.0 % Basophils (%) (Auto) 0.1 % Neutrophils # (Auto) 20.02 1.4-6.5 K/uL Lymphocytes # (Auto) 1.09 1.2-3.4 K/uL Monocytes # (Auto) 1.26 0.11-0.59 K/uL Eosinophils # (Auto) 0.00 0-0.5 K/uL Basophils # (Auto) 0.03 0-0.2 K/uL RDW Standard Deviation 49.0 36.4-46.3 fL RDW Coefficient of Variation 15.9 11.5-14.5 % Immature Granulocyte % (Auto) 3.9 % Immature Granulocyte # (Auto) 0.91 0.00-0.02 K/uL Polychromasia 1+ Basophilic Stippling 1+ Sodium Level 129 136-145 mmol/L Potassium Level 4.5 3.5-5.1 mmol/L Chloride Level 92 98-107 mmol/L Carbon Dioxide Level 28 21-32 mmol/L Anion Gap 9.0 3-11 mmol/L Blood Urea Nitrogen 18 7-18 mg/dl Creatinine 0.92 0.60-1.40 mg/dl Est Creatinine Clear Calc Drug Dose 74.3 ml/min Estimated GFR () 98.7 Estimated GFR (Non- 85.2 BUN/Creatinine Ratio 19.0 10-20 Random Glucose 191 70-99 mg/dl Calcium Level 8.1 8.5-10.1 mg/dl Phosphorus Level 3.6 2.5-4.9 mg/dl Magnesium Level 2.0 1.8-2.4 mg/dl Microbiology Results 10/23/16 Fungal Smear, Received Pending 10/23/16 Fungal Culture, Received Pending 10/23/16 Acid Fast Stain, Received Pending 10/23/16 Mycobacterial Culture, Received Pending 10/23/16 Gram Stain, Received Pending 10/23/16 Bronchoalveolar Lavage Culture, Received Pending Imp: Post embolectomy of left leg Plan: Foot is demarcating. No outflow onto foot. Would need BKA of left leg
[2016-10-24] MEDS ORDERED: HEPARIN IV BOLUS 3,000 UNIT in SYRINGE 0 ML IV ONE (09:00)
--- NOTE | 2016-10-24 10:54 | Hematology/Oncology Prog Note ---
Hematology/Onc Progress Note Date of Service Oct 24, 2016. 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 Coumadin Medications Medications Administered Medications (Trade) Dose Ordered Sig/Malcolm Route Start Time Stop Time Status Last Admin Dose Admin Levothyroxine Sodium (Synthroid Tab) 225 mcg DAILYBB PO 10/18/16 08:30 11/17/16 08:29 10/24/16 05:21 225 MCG Loperamide HCl (Imodium Cap) 2 mg BID PO 10/18/16 09:00 10/20/16 21:00 DC 10/20/16 22:02 2 MG Loratadine (Claritin Tab) 10 mg DAILY PO 10/18/16 09:00 10/21/16 15:48 DC 10/20/16 10:34 10 MG Nortriptyline HCl (Pamelor Cap) 10 mg HS PO 10/18/16 21:00 11/17/16 20:59 10/23/16 21:33 10 MG Guaifenesin (Organidin Nr Tab) 400 mg TID PO 10/18/16 09:00 10/21/16 15:48 DC 10/20/16 22:01 400 MG Pantoprazole Sodium (Protonix Tab) 40 mg DAILY PO 10/18/16 09:00 10/21/16 12:29 DC 10/20/16 10:35 40 MG Acetaminophen (Tylenol Tab) 650 mg Q4H PRN PO 10/18/16 06:45 11/17/16 06:44 10/21/16 05:23 650 MG Ondansetron HCl (Zofran Inj) 4 mg Q6H PRN IV 10/18/16 06:45 11/17/16 06:44 10/20/16 08:00 4 MG Morphine Sulfate 2 mg 2 mg Q30M PRN IV 10/18/16 06:45 10/22/16 07:51 DC 10/20/16 02:48 2 MG Ampicillin Sodium/ Sulbactam Sodium 3000 mg/Sodium Chloride 108 ml @ 200 mls/hr Q6H IV 10/18/16 08:00 10/18/16 13:14 DC 10/18/16 08:29 200 MLS/HR Azithromycin/ Dextrose (Zithromax IV/D5 250ml) 255 ml @ 125 mls/hr DAILY@0900 IV 10/18/16 09:00 10/23/16 11:40 DC 10/23/16 08:43 125 MLS/HR Albuterol/ Ipratropium (Duoneb) 3 ml Q6R INH 10/18/16 09:00 10/22/16 00:13 DC 10/21/16 01:29 3 ML Albuterol Sulfate 2.5 mg 2.5 mg Q4H PRN INH 10/18/16 06:45 10/22/16 00:13 DC 10/18/16 11:22 2.5 MG Potassium Chloride/Dextrose/ Sod Cl 1,000 ml @ 75 mls/hr [id number] IV 10/18/16 08:00 10/18/16 21:19 DC 10/18/16 08:26 75 MLS/HR Sodium Chloride (Nss 250ml) 250 ml @ 999 mls/hr Q16M IV 10/18/16 10:00 10/18/16 10:36 DC 10/18/16 11:19 999 MLS/HR Enoxaparin Sodium 60 mg 60 mg Q12@1100,2300 SQ 10/18/16 11:00 10/19/16 19:03 DC 10/19/16 10:54 60 MG Ceftriaxone Sodium 1 gm/ Dextrose 50 ml @ 100 mls/hr DAILY@1400 IV 10/18/16 14:00 10/25/16 13:59 10/23/16 13:42 100 MLS/HR Metronidazole/Prmx (Flagyl / Nss/ Premixed Nss) 100 ml @ 100 mls/hr Q6 IV 10/18/16 18:00 10/19/16 10:25 DC 10/19/16 06:53 100 MLS/HR Dornase Sy (Pulmozyme Inhalation Soln 2.5ml Amp) 2.5 ml BIDR INH 10/18/16 20:00 10/19/16 10:25 DC 10/19/16 07:27 2.5 ML Metoprolol Tartrate (Lopressor Tab) 25 mg TID PO 10/19/16 21:00 10/21/16 12:29 DC 10/20/16 22:01 25 MG Metoprolol Tartrate (Lopressor Iv) 5 mg STK-MED ONCE .ROUTE 10/19/16 15:44 10/19/16 15:48 DC 10/19/16 15:56 5 MG Diltiazem HCl 10 mg 10 mg TODAY@1800 IV 10/19/16 18:00 10/19/16 18:01 DC 10/19/16 18:25 10 MG Diltiazem HCl/ Dextrose (Cardizem Inj/D5 100ml) 125 ml @ 0 mls/hr Q0M PRN IV 10/19/16 18:00 10/22/16 08:46 DC 10/21/16 15:20 15 MLS/HR Enoxaparin Sodium (Lovenox Inj) 60 mg Q12 SQ 10/19/16 21:00 10/21/16 22:03 DC 10/21/16 20:45 60 MG Lidocaine HCl (Xylocaine 1% Inj (Local)) 3 ml ONE ONCE SQ 10/20/16 16:57 10/20/16 16:59 DC 10/20/16 16:57 3 ML Iodixanol (Visipaque 50ml) 4,050 mg ONE ONCE IV 10/20/16 16:57 10/20/16 16:59 DC 10/20/16 16:57 4,050 MG Heparin Sodium/ Sodium Chloride (Heparin Sod/Ns 2 Units/Ml) 20 unit ONE ONCE IV 10/20/16 16:57 10/20/16 16:59 DC 10/20/16 16:57 20 UNIT Cefazolin Sodium (Ancef Inj) 1,000 mg STK-MED ONCE .ROUTE 10/21/16 07:18 10/21/16 07:21 DC 10/21/16 09:45 1,000 MG Heparin Sodium (Porcine) 69020 unit 10,000 unit STK-MED ONCE .ROUTE 10/21/16 07:18 10/21/16 07:22 DC 10/21/16 09:45 5,000 UNIT Dextrose/Sodium Chloride (D5W And 1/2nss) 1,000 ml @ 100 mls/hr Q10H IV 10/21/16 10:45 10/21/16 20:44 DC 10/21/16 12:28 100 MLS/HR Iodixanol (Visipaque (Iodixanol) Inj 270MG/Ml) 11 ml ONE ONCE INSTIL 10/21/16 10:54 10/21/16 10:55 DC 10/21/16 09:40 11 ML Propofol (Diprivan Iv Emulsion 100ml Vial) 1 dose STK-MED ONCE IV 10/21/16 11:00 10/21/16 11:03 DC 10/21/16 12:28 1 DOSE Metoprolol Tartrate (Lopressor Iv) 5 mg STK-MED ONCE .ROUTE 10/21/16 12:04 10/21/16 12:08 DC 10/21/16 12:22 5 MG Diltiazem HCl (Cardizem Inj) 25 mg STK-MED ONCE .ROUTE 10/21/16 12:22 10/21/16 12:26 DC 10/21/16 12:49 10 MG Metoprolol Tartrate (Lopressor Tab) 50 mg TID PO 10/21/16 14:00 10/22/16 08:45 DC 10/21/16 20:43 50 MG Chlorhexidine Gluconate 15 ml 15 ml BID MT 10/21/16 21:00 11/20/16 20:59 10/24/16 08:19 15 ML Norepinephrine Bitartrate 8 mg/ Dextrose 508 ml @ 0 mls/hr Q0M PRN IV 10/21/16 13:30 11/20/16 13:29 10/23/16 21:18 33.1 MLS/HR Amiodarone HCL/ Dextrose 100 ml @ 600 mls/hr TODAY@1345 IV 10/21/16 13:45 10/21/16 13:54 DC 10/21/16 14:19 600 MLS/HR Amiodarone HCL/ Dextrose 200 ml @ 33.3 mls/hr Q6H1M IV 10/21/16 14:00 10/21/16 20:00 DC 10/21/16 14:29 33.3 MLS/HR Amiodarone HCL/ Dextrose (Nexterone / D5w) 200 ml @ 16.7 mls/hr [id number] IV 10/21/16 20:00 10/22/16 15:21 DC 10/22/16 05:32 16.7 MLS/HR Miscellaneous (Insulin Protocol Dka Goal Range) 1 ea ONE ONCE N/A 10/21/16 14:30 10/21/16 14:32 DC 10/21/16 14:30 1 EA Miscellaneous (Insulin Protocol Severe Stress) 1 ea ONE ONCE N/A 10/21/16 14:30 10/21/16 14:31 DC 10/21/16 16:26 1 EA Diltiazem HCl 25 mg 25 mg STK-MED ONCE .ROUTE 10/21/16 15:40 10/21/16 15:44 DC 10/21/16 15:47 10 MG Insulin Human Regular 2.5 unit/ Syringe 2.5 ml @ 1 mls/min TODAY@1615 IV 10/21/16 16:15 10/21/16 16:18 DC 10/21/16 16:25 1 MLS/MIN Insulin Human Regular 250 units/ Sodium Chloride 252.5 ml @ 0 mls/hr DAILY@1130 IV 10/21/16 16:15 11/20/16 16:14 10/23/16 13:41 0.7 MLS/HR Fentanyl Citrate (Fentanyl Drip 1250MCG/250 Nss) 250 ml @ 0 mls/hr Q0M PRN IV 10/21/16 16:15 11/04/16 16:14 10/23/16 23:27 20 MLS/HR Fentanyl Citrate (Fentanyl Inj) 50 mcg Q2H PRN IV 10/21/16 16:15 11/04/16 16:14 10/23/16 18:28 50 MCG Propofol (Diprivan Iv Emulsion 100ml Vial) 1 dose UD PRN IV 10/21/16 18:15 10/23/16 08:28 DC 10/22/16 01:43 1 DOSE Propofol 1 dose 1 dose STK-MED ONCE IV 10/21/16 18:26 10/21/16 18:29 DC 10/21/16 18:32 1 DOSE Heparin Sodium (Porcine) 5000 unit/Syringe 5 ml @ 10 mls/min NOW STAT IV 10/21/16 23:35 10/21/16 23:36 DC 10/21/16 23:56 10 MLS/MIN Heparin Sodium/ Dextrose (Heparin 25,000 Unit/500ml D5W) 500 ml @ 23 mls/hr [id number] PRN IV 10/21/16 23:45 11/20/16 23:44 10/22/16 23:02 20 MLS/HR Albuterol (Ventolin Hfa Inhaler) 4 puffs Q6R INH 10/22/16 03:00 11/21/16 02:59 10/24/16 07:36 4 PUFFS Ipratropium [place] (Atrovent Hfa Inhaler) 4 puffs Q6R INH 10/22/16 03:00 11/21/16 02:59 10/24/16 07:36 4 PUFFS Docusate Sodium (coLACE SYRUP) 100 mg BID PO 10/22/16 09:00 11/21/16 08:59 10/24/16 08:15 100 MG Heparin Sodium (Porcine) (Heparin Sod 5000u/ml(Porcine)) 5,000 unit STK-MED ONCE .ROUTE 10/22/16 09:36 10/22/16 09:39 DC 10/22/16 13:00 5,000 UNIT Cefazolin Sodium 1000 mg 1,000 mg STK-MED ONCE .ROUTE 10/22/16 09:36 10/22/16 09:40 DC 10/22/16 13:00 1,000 MG Diltiazem HCl/ Dextrose (Cardizem Inj/D5 100ml) 125 ml @ 0 mls/hr Q0M PRN IV 10/22/16 13:30 10/23/16 11:32 DC 10/22/16 21:35 5 MLS/HR Iodixanol (Visipaque (Iodixanol) Inj 270MG/Ml) 150 ml ONE ONCE INSTIL 10/22/16 14:25 10/22/16 14:26 DC 10/22/16 13:00 150 ML Amiodarone HCL/ Dextrose (Nexterone / D5w) 360 mg STK-MED ONCE .ROUTE 10/22/16 15:26 10/22/16 15:29 DC 10/22/16 15:37 360 MG Amiodarone HCL/ Dextrose 150 mg 150 mg STK-MED ONCE .ROUTE 10/22/16 15:26 10/22/16 15:29 DC 10/22/16 15:36 150 MG Amiodarone HCL/ Dextrose 200 ml @ 33.3 mls/hr Q6H1M IV 10/22/16 15:55 10/22/16 22:00 DC 10/22/16 21:34 33.3 MLS/HR Amiodarone HCL/ Dextrose 200 ml @ 16.7 mls/hr [id number] IV 10/22/16 22:00 11/21/16 21:59 10/24/16 08:19 16.7 MLS/HR Pantoprazole Sodium 80 mg/ Dextrose 120 ml @ 480 mls/hr 1630 IV 10/22/16 16:30 10/22/16 16:44 DC 10/22/16 17:40 480 MLS/HR Pantoprazole Sodium/Dextrose (Protonix Inj/D5 100ml) 100 ml @ 20 mls/hr Q5H IV 10/22/16 16:45 11/21/16 16:44 10/24/16 08:16 20 MLS/HR Albumin Human (Albumin 25%) 12.5 gm ONE STAT IV 10/22/16 16:21 10/22/16 16:30 DC 10/22/16 17:40 12.5 GM Diltiazem HCl 15 mg 15 mg NOW STAT IV 10/22/16 18:17 10/22/16 18:30 DC 10/22/16 18:53 15 MG Heparin Sodium (Porcine)/Syringe (Heparin Iv Bolus/Syringe) 3 ml @ 10 mls/min NOW STAT IV 10/22/16 22:49 10/22/16 22:50 DC 10/22/16 23:03 10 MLS/MIN Polyethylene 17 gm 17 gm BID PO 10/23/16 09:00 11/22/16 08:59 10/24/16 08:16 17 GM Methylprednisolone Sodium Succinate 40 mg/Syringe 0.64 ml @ 1.5 mls/min Q8H IV 10/23/16 12:00 10/24/16 04:01 DC 10/24/16 04:23 1.5 MLS/MIN Furosemide/Syringe (Lasix Inj/ Syringe) 2 ml @ 4 mls/min NOW ONCE IV 10/23/16 12:00 10/23/16 12:01 DC 10/23/16 12:03 4 MLS/MIN Diltiazem HCl 25 mg 25 mg STK-MED ONCE .ROUTE 10/23/16 18:03 10/23/16 18:08 DC 10/23/16 18:11 10 MG Diltiazem HCl/ Dextrose (Cardizem Inj/D5 100ml) 125 ml @ 0 mls/hr Q0M PRN IV 10/23/16 18:30 11/22/16 18:29 10/24/16 02:49 10 MLS/HR Propofol (Diprivan Iv Emulsion 100ml Vial) 1 dose UD PRN IV 10/23/16 18:45 10/26/16 18:44 10/24/16 02:48 1 DOSE Furosemide (Lasix Inj) 40 mg NOW STAT IV 10/23/16 19:08 10/23/16 19:12 DC 10/23/16 20:49 40 MG Diltiazem HCl (Cardizem Inj) 25 mg STK-MED ONCE .ROUTE 10/23/16 20:11 10/23/16 20:15 DC 10/23/16 20:12 25 MG Diltiazem HCl 25 mg 25 mg STK-MED ONCE .ROUTE 10/23/16 21:03 10/23/16 21:06 DC 10/23/16 21:16 15 MG Heparin Sodium (Porcine)/Syringe (Heparin Iv Bolus/Syringe) 3 ml @ 10 mls/min TODAY@0900 ONCE IV 10/24/16 09:00 10/24/16 09:01 DC 10/24/16 09:28 10 MLS/MIN Subjective In ICU and intubated. Family is at the bedside. The vascular issues remain the main focus of his care. There is a possibility of the need for limb amputation. Review of Systems: Unable to obtain Vital Signs Vital Signs Past 12 Hours Date Time Temp Pulse Resp B/P Pulse Ox O2 Delivery O2 Flow Rate FiO2 10/24/16 10:00 80 20 117/54 97 Mechanical Ventilator 60 108/60 10/24/16 08:00 36.9 82 20 128/55 97 Mechanical Ventilator 60 115/64 10/24/16 08:00 Mechanical Ventilator 60 10/24/16 08:00 60 10/24/16 07:36 60 10/24/16 06:00 75 20 117/54 97 107/57 10/24/16 05:00 59 20 121/51 99 10/24/16 05:00 60 10/24/16 04:26 126/56 132/85 10/24/16 04:24 100 Mechanical Ventilator 50 10/24/16 04:24 100 10/24/16 04:00 36.9 70 20 108/51 98 97/58 10/24/16 03:00 71 20 103/49 97 87/55 10/24/16 02:00 72 20 102/48 97 90/55 10/24/16 02:00 72 20 102/48 97 10/24/16 01:28 60 10/24/16 01:00 73 19 98/48 97 10/24/16 00:45 73 16 99/49 97 10/24/16 00:30 73 20 94/47 98 89/59 10/24/16 00:30 73 20 94/47 98 10/24/16 00:00 100 Mechanical Ventilator 50 10/24/16 00:00 100 10/24/16 00:00 36.5 73 20 98 83/54 10/23/16 23:43 74 20 94/47 97 10/23/16 23:30 74 20 100/47 98 10/23/16 23:00 75 20 99/46 98 88/54 Physical Exam Constitutional: vitals are stable. Intubated Eyes: Eyes are JESSICA EOMI without conjuctival erythema or icterus. ENT: External examination was negative for masses. Neck: Negative for masses or palpable thyromegaly Respiratory: Lung sounds were generally clear bilaterally Cardiovascular: Heart was RRR without significant murmur, gallops aoe rubs Gastrointestinal: No palpable hepatic or splenomegaly. The abdomen was soft with normal bowel sounds. Lymphatic system: there was no palpable peripheral lymphadenopathy Musculoskeletal System: The musculoskeletal system seemed concordant with age. Skin: The skin was negative for jaundice. Extremities: Left lower extremity: And mildly cyanotic Laboratory Last 24 Hours Test 10/23/16 11:02 10/23/16 11:23 10/23/16 15:35 10/23/16 16:52 Hemoglobin 8.2 g/dL 8.3 g/dL Hematocrit 23.6 % 24.4 % Bedside Glucose (other) 187 mg/dl 166 mg/dl Sodium Level 128 mmol/L Potassium Level 4.4 mmol/L Chloride Level 92 mmol/L Carbon Dioxide Level 29 mmol/L Anion Gap 7.0 mmol/L Blood Urea Nitrogen 13 mg/dl Creatinine 0.82 mg/dl Est Creatinine Clear Calc Drug Dose 83.4 ml/min Estimated GFR () 105.3 Estimated GFR (Non- 90.9 BUN/Creatinine Ratio 16.3 Random Glucose 159 mg/dl Calcium Level 7.7 mg/dl Test 10/23/16 20:45 10/24/16 05:14 10/24/16 05:51 10/24/16 07:27 Bedside Glucose (other) 197 mg/dl 205 mg/dl Activated Partial Thromboplast Time 44.6 SECONDS Partial Thromboplastin Ratio 1.7 White Blood Count 23.31 K/uL Red Blood Count 2.75 M/uL Hemoglobin 8.0 g/dL Hematocrit 23.4 % Mean Corpuscular Volume 85.1 fL Mean Corpuscular Hemoglobin 29.1 pg Mean Corpuscular Hemoglobin Concent 34.2 g/dl Platelet Count 263 K/uL Mean Platelet Volume 9.3 fL Neutrophils (%) (Auto) 85.9 % Lymphocytes (%) (Auto) 4.7 % Monocytes (%) (Auto) 5.4 % Eosinophils (%) (Auto) 0.0 % Basophils (%) (Auto) 0.1 % Neutrophils # (Auto) 20.02 K/uL Lymphocytes # (Auto) 1.09 K/uL Monocytes # (Auto) 1.26 K/uL Eosinophils # (Auto) 0.00 K/uL Basophils # (Auto) 0.03 K/uL RDW Standard Deviation 49.0 fL RDW Coefficient of Variation 15.9 % Immature Granulocyte % (Auto) 3.9 % Immature Granulocyte # (Auto) 0.91 K/uL Polychromasia 1+ Basophilic Stippling 1+ Sodium Level 129 mmol/L Potassium Level 4.5 mmol/L Chloride Level 92 mmol/L Carbon Dioxide Level 28 mmol/L Anion Gap 9.0 mmol/L Blood Urea Nitrogen 18 mg/dl Creatinine 0.92 mg/dl Est Creatinine Clear Calc Drug Dose 74.3 ml/min Estimated GFR () 98.7 Estimated GFR (Non- 85.2 BUN/Creatinine Ratio 19.0 Random Glucose 191 mg/dl Calcium Level 8.1 mg/dl Phosphorus Level 3.6 mg/dl Magnesium Level 2.0 mg/dl Test 10/24/16 08:55 Bedside Glucose (other) 186 mg/dl Assessment & Plan His daughter is at the bedside today. She is only a fair historian that she reviews with me that he has a history of cancer that dates back years ago and received chemotherapy and radiation. She believes it was at a time when he was incarcerated well at [place].she's not able to give me any further information. Our role in his care is really secondary as his lower extremity vascular problems take precedence. We'll continue to follow but at a distance. His daughter was informed of this and she understands.
[2016-10-24] MEDS ORDERED: BISACODYL 10 MG SUPP PR STA (12:29)
[2016-10-24] MEDS ORDERED: BISACODYL 10 MG SUPP PR PRN (12:30)
[2016-10-24] MEDS ORDERED: SENNA 17.6 MG/10 ML UDP PO ONE (12:30)
[2016-10-24] MEDS: FENTANYL 1250MCG/250ML NSS 250 ML IV PRN (12:32)
[2016-10-24] MEDS: INSULIN REGULAR 250 UNITS in SODIUM CHLORIDE 0.9% 250ML 250 ML IV SCH (12:32)
[2016-10-24] MEDS: NOREPINEPHRINE BIT INJ 8 MG in DEXTROSE 5% 500ML 500 ML IV PRN (13:18)
--- NOTE | 2016-10-24 13:18 | Family Medicine Progress Note ---
Progress Note Date of Service Oct 24, 2016. Subjective Pt evaluation today including: conversation w/ patient, conversation w/ family , physical exam, chart review, lab review, review of studies, review of inpatient medication list Pain: denied PO Intake: tube feeds Voiding: hopson catheter in place Overnight, Patient had acute hypoxic episode desaturated into the 70's etiology suspected to be due to mucus plugs. He later had a Bronchoscopy, with suctioning of significant mucus from LLL and Bronchioalveolar lavage. saturation improved. Overnight Fio2 had been increased to 100% following desaturation but he has been weaned down to 60%. Patient had gone into Afib overnight, was started on Cardizem and converted overnight. According to patient , who was intubated but alert with sedation being weaned off, He denied pain, CP , SOB, calf pain. palpitation. Additional Comments: could not assess complete review of systems due patient being intubated Medications Current Inpatient Medications Medications (Trade) Dose Ordered Sig/Malcolm Route Start Time Stop Time Status Last Admin Dose Admin Levothyroxine Sodium (Synthroid Tab) 225 mcg DAILYBB PO 10/18/16 08:30 11/17/16 08:29 10/24/16 05:21 225 MCG Nortriptyline HCl (Pamelor Cap) 10 mg HS PO 10/18/16 21:00 11/17/16 20:59 10/23/16 21:33 10 MG Miscellaneous Information (Order Awaiting Action) 1 ea QS N/A 10/18/16 08:00 11/17/16 07:59 Acetaminophen (Tylenol Tab) 650 mg Q4H PRN PO 10/18/16 06:45 11/17/16 06:44 10/21/16 05:23 650 MG Ondansetron HCl 4 mg 4 mg Q6H PRN IV 10/18/16 06:45 11/17/16 06:44 10/20/16 08:00 4 MG Ceftriaxone Sodium/Dextrose (Rocephin Inj/ Dextrose Add-[place] 50ML) 50 ml @ 100 mls/hr DAILY@1400 IV 10/18/16 14:00 10/25/16 13:59 10/23/16 13:42 100 MLS/HR Ioversol (Optiray 320) 125 ml UD PRN IV 10/20/16 16:00 10/24/16 15:59 Chlorhexidine Gluconate 15 ml 15 ml BID MT 10/21/16 21:00 11/20/16 20:59 10/24/16 08:19 15 ML Norepinephrine Bitartrate/ Dextrose (Levophed Inj/ D5W 500ml) 508 ml @ 0 mls/hr Q0M PRN IV 10/21/16 13:30 11/20/16 13:29 10/23/16 21:18 33.1 MLS/HR Insulin Aspart (novoLOG ASPART) SLIDING SCALE [facility] 10/21/16 17:15 11/20/16 17:14 Glucose (Glucose 40% Gel) 15-30 GRAMS 15 GRAMS... UD PRN PO 10/21/16 14:45 11/20/16 14:44 Glucose (Glucose Chew Tab) 4-8 Tablets 4 Tabl... UD PRN PO 10/21/16 14:45 11/20/16 14:44 Dextrose (Dextrose 50% 50ML Syringe) 25-50ML OF 50% DW IV FOR... UD PRN IV 10/21/16 14:45 11/20/16 14:44 Glucagon 1 mg 1 mg UD PRN SQ 10/21/16 14:45 11/20/16 14:44 Insulin Human Regular 250 units/ Sodium Chloride 252.5 ml @ 0 mls/hr DAILY@1130 IV 10/21/16 16:15 11/20/16 16:14 10/24/16 12:32 0.8 MLS/HR Fentanyl Citrate (Fentanyl Drip 1250MCG/250 Nss) 250 ml @ 0 mls/hr Q0M PRN IV 10/21/16 16:15 11/04/16 16:14 10/24/16 12:32 20 MLS/HR Fentanyl Citrate 50 mcg 50 mcg Q2H PRN IV 10/21/16 16:15 11/04/16 16:14 10/23/16 18:28 50 MCG Heparin Sodium/ Dextrose (Heparin 25,000 Unit/500ml D5W) 500 ml @ 23 mls/hr [id number] PRN IV 10/21/16 23:45 11/20/16 23:44 10/22/16 23:02 20 MLS/HR Albuterol (Ventolin Hfa Inhaler) 4 puffs Q6R INH 10/22/16 03:00 11/21/16 02:59 10/24/16 07:36 4 PUFFS Ipratropium [place] (Atrovent Hfa Inhaler) 4 puffs Q6R INH 10/22/16 03:00 11/21/16 02:59 10/24/16 07:36 4 PUFFS Docusate Sodium (coLACE SYRUP) 100 mg BID PO 10/22/16 09:00 11/21/16 08:59 10/24/16 08:15 100 MG Miscellaneous Information 1 ea 1 ea UD PRN N/A 10/22/16 09:45 11/21/16 09:44 Amiodarone HCL/ Dextrose 200 ml @ 16.7 mls/hr [id number] IV 10/22/16 22:00 11/21/16 21:59 10/24/16 08:19 16.7 MLS/HR Pantoprazole Sodium/Dextrose (Protonix Inj/D5 100ml) 100 ml @ 20 mls/hr Q5H IV 10/22/16 16:45 11/21/16 16:44 10/24/16 08:16 20 MLS/HR Heparin Sodium (Porcine) (Heparin 10 Unit/ ml 5 ml Flush) 5 ml PRN PRN FLUSH 10/23/16 00:15 11/22/16 00:14 Polyethylene 17 gm 17 gm BID PO 10/23/16 09:00 11/22/16 08:59 10/24/16 08:16 17 GM Diltiazem HCl/ Dextrose (Cardizem Inj/D5 100ml) 125 ml @ 0 mls/hr Q0M PRN IV 10/23/16 18:30 11/22/16 18:29 10/24/16 02:49 10 MLS/HR Propofol (Diprivan Iv Emulsion 100ml Vial) 1 dose UD PRN IV 10/23/16 18:45 10/26/16 18:44 10/24/16 02:48 1 DOSE Senna (Senokot Syrup) 17.6 mg QAM PO 10/25/16 09:00 11/24/16 08:59 Bisacodyl (Dulcolax Supp) 10 mg DAILY PRN [place] 10/24/16 12:30 11/23/16 12:29 Acetylcysteine (Mucomyst 20% Inh Soln) 3 ml Q6R INH 10/24/16 15:00 11/23/16 14:59 Objective Vital Signs Date Time Temp Pulse Resp B/P Pulse Ox O2 Delivery O2 Flow Rate FiO2 10/24/16 12:02 60 10/24/16 12:00 83 20 140/57 98 Mechanical Ventilator 60 11/59 10/24/16 12:00 Mechanical Ventilator 60 10/24/16 12:00 60 10/24/16 10:00 80 20 117/54 97 Mechanical Ventilator 60 108/60 10/24/16 08:00 36.9 82 20 128/55 97 Mechanical Ventilator 60 115/64 10/24/16 08:00 Mechanical Ventilator 60 10/24/16 08:00 60 10/24/16 07:36 60 10/24/16 06:00 75 20 117/54 97 107/57 10/24/16 05:00 59 20 121/51 99 10/24/16 05:00 60 10/24/16 04:26 126/56 132/85 10/24/16 04:24 100 Mechanical Ventilator 50 10/24/16 04:24 100 10/24/16 04:00 36.9 70 20 108/51 98 97/58 10/24/16 03:00 71 20 103/49 97 87/55 10/24/16 02:00 72 20 102/48 97 90/55 10/24/16 02:00 72 20 102/48 97 10/24/16 01:28 60 10/24/16 01:00 73 19 98/48 97 10/24/16 00:45 73 16 99/49 97 10/24/16 00:30 73 20 94/47 98 89/59 10/24/16 00:30 73 20 94/47 98 10/24/16 00:00 100 Mechanical Ventilator 50 10/24/16 00:00 100 10/24/16 00:00 36.5 73 20 98 83/54 10/23/16 23:43 74 20 94/47 97 10/23/16 23:30 74 20 100/47 98 10/23/16 23:00 75 20 99/46 98 88/54 10/23/16 22:30 74 20 94/48 98 Mechanical Ventilator 60 87/55 10/23/16 22:15 77 16 99/48 99 Mechanical Ventilator 60 83/56 10/23/16 22:00 77 22 96/48 99 Mechanical Ventilator 90 85/54 10/23/16 21:45 77 19 98/50 98 Mechanical Ventilator 90 84/54 10/23/16 21:30 77 19 96/48 99 Mechanical Ventilator 90 84/54 10/23/16 21:20 50 10/23/16 21:15 76 18 100/51 99 Mechanical Ventilator 90 85/55 10/23/16 21:00 126 20 104/61 98 Mechanical Ventilator 90 83/56 10/23/16 20:45 130 15 93/59 99 Mechanical Ventilator 90 89/63 10/23/16 20:42 130 20 95/59 99 Mechanical Ventilator 90 79/60 10/23/16 20:30 129 16 98/57 98 Mechanical Ventilator 90 87/62 10/23/16 20:27 129 18 89/53 99 Mechanical Ventilator 90 76/60 10/23/16 20:15 127 20 98/58 98 Mechanical Ventilator 90 78/61 10/23/16 20:00 37.2 124 21 106/58 98 Mechanical Ventilator 100 87/64 10/23/16 20:00 100 10/23/16 20:00 100 Mechanical Ventilator 50 10/23/16 19:45 125 3 111/60 100 Mechanical Ventilator 100 99/64 10/23/16 19:30 129 19 90/53 100 Mechanical Ventilator 100 89/69 10/23/16 19:22 128 17 95/57 98 Mechanical Ventilator 100 82/61 10/23/16 19:15 129 18 93/58 100 Mechanical Ventilator 100 78/60 10/23/16 19:00 127 18 95/51 87 Mechanical Ventilator 100 79/61 10/23/16 17:20 50 10/23/16 16:00 50 10/23/16 16:00 90 18 107/56 94 Mechanical Ventilator 50 103/62 10/23/16 16:00 Mechanical Ventilator 50 10/23/16 14:15 50 10/23/16 14:00 92 18 110/59 95 Mechanical Ventilator 50 103/60 10/23/16 13:55 93 16 103/56 94 Physical Exam Notes: GENERAL: alert, intubated on ventilator, no distress EYE EXAM: normal conjunctiva, PERRL and EOM's grossly intact OROPHARYNX: ET tube in place NECK: supple, no nuchal rigidity, no adenopathy, non-tender LUNGS: Clear to auscultation. Normal chest wall mechanics HEART: no murmurs, RRR ABDOMEN: abdomen soft, non-tender, normo-active bowel sounds, no masses, no rebound or guarding. BACK: Back is symmetrical on inspection and there is no deformity, no midline tenderness, no CVA tenderness. SKIN: no rashes and no bruising UPPER EXTREMITIES: upper extremities are grossly normal. LOWER EXTREMITIES: LLE Pale cool, Left foot blue in color with demarcation, Popliteal pulse intact. no dorsalis pedis. RLE grossly normal. no calf tenderness, Laboratory Results Results Past 24 Hours Test 10/23/16 20:45 10/24/16 05:14 10/24/16 05:51 10/24/16 07:27 Range/Units Bedside Glucose (other) 197 205 70-99 mg/dl Activated Partial Thromboplast Time 44.6 21.0-31.0 SECONDS Partial Thromboplastin Ratio 1.7 White Blood Count 23.31 4.8-10.8 K/uL Red Blood Count 2.75 4.7-6.1 M/uL Hemoglobin 8.0 14.0-18.0 g/dL Hematocrit 23.4 42-52 % Mean Corpuscular Volume 85.1 80-100 fL Mean Corpuscular Hemoglobin 29.1 25-34 pg Mean Corpuscular Hemoglobin Concent 34.2 32-36 g/dl Platelet Count 263 130-400 K/uL Mean Platelet Volume 9.3 7.4-10.4 fL Neutrophils (%) (Auto) 85.9 % Lymphocytes (%) (Auto) 4.7 % Monocytes (%) (Auto) 5.4 % Eosinophils (%) (Auto) 0.0 % Basophils (%) (Auto) 0.1 % Neutrophils # (Auto) 20.02 1.4-6.5 K/uL Lymphocytes # (Auto) 1.09 1.2-3.4 K/uL Monocytes # (Auto) 1.26 0.11-0.59 K/uL Eosinophils # (Auto) 0.00 0-0.5 K/uL Basophils # (Auto) 0.03 0-0.2 K/uL RDW Standard Deviation 49.0 36.4-46.3 fL RDW Coefficient of Variation 15.9 11.5-14.5 % Immature Granulocyte % (Auto) 3.9 % Immature Granulocyte # (Auto) 0.91 0.00-0.02 K/uL Polychromasia 1+ Basophilic Stippling 1+ Sodium Level 129 136-145 mmol/L Potassium Level 4.5 3.5-5.1 mmol/L Chloride Level 92 98-107 mmol/L Carbon Dioxide Level 28 21-32 mmol/L Anion Gap 9.0 3-11 mmol/L Blood Urea Nitrogen 18 7-18 mg/dl Creatinine 0.92 0.60-1.40 mg/dl Est Creatinine Clear Calc Drug Dose 74.3 ml/min Estimated GFR () 98.7 Estimated GFR (Non- 85.2 BUN/Creatinine Ratio 19.0 10-20 Random Glucose 191 70-99 mg/dl Calcium Level 8.1 8.5-10.1 mg/dl Phosphorus Level 3.6 2.5-4.9 mg/dl Magnesium Level 2.0 1.8-2.4 mg/dl Test 10/24/16 08:55 10/24/16 14:15 10/24/16 15:12 10/24/16 16:12 Range/Units Bedside Glucose (other) 186 161 70-99 mg/dl Urine Color YELLOW Urine Appearance CLEAR CLEAR Urine pH 5.5 4.5-7.5 Urine Specific [place] 1.013 1.000-1.030 Urine Protein NEG NEG Urine Glucose (UA) NEG NEG Urine Ketones NEG NEG Urine Occult Blood TRACE NEG Urine Nitrite NEG NEG Urine Bilirubin NEG NEG Urine Urobilinogen NEG NEG Urine Leukocyte Esterase NEG NEG Urine WBC (Auto) 1-5 0-5 /hpf Urine RBC (Auto) 0-4 0-4 /hpf Urine Hyaline Casts (Auto) 10-30 0-5 /lpf Urine Epithelial Cells (Auto) >30 0-5 /lpf Urine Bacteria (Auto) NEG NEG Urine Renal Epithelial Cells 0-5 /lpf Urine Pathogenic Casts 10-20 GRANULAR CASTS 0 /lpf Activated Partial Thromboplast Time 50.6 21.0-31.0 SECONDS Partial Thromboplastin Ratio 1.9 Test 10/24/16 17:03 Range/Units Hemoglobin 7.8 14.0-18.0 g/dL Hematocrit 23.3 42-52 % Sodium Level 130 136-145 mmol/L Potassium Level 4.3 3.5-5.1 mmol/L Chloride Level 93 98-107 mmol/L Carbon Dioxide Level 29 21-32 mmol/L Anion Gap 8.0 3-11 mmol/L Blood Urea Nitrogen 21 7-18 mg/dl Creatinine 1.30 0.60-1.40 mg/dl Est Creatinine Clear Calc Drug Dose 52.6 ml/min Estimated GFR () 65.0 Estimated GFR (Non- 56.1 BUN/Creatinine Ratio 16.5 10-20 Random Glucose 150 70-99 mg/dl Calcium Level 7.8 8.5-10.1 mg/dl Microbiology Results 10/24/16 Urine Culture, Received Pending Assessment and Plan 70 yo M prisoner w/hx of Smoking, Chronic Atrial Flutter on Coumadin, COPD, p/w SOB, cough, hemoptysis found to have multiple PE's on CTA, LLL consolidation in addition to Acute occlusion of the Left popliteal artery s/p embolectomy x2 , will require BKA Hypotension -BP stable - Pt is on Azithromycin and Ceftriaxone for pneumonia. - Pt is on Levophed drip at present, tapering down. Left Lower Extremity Artery Occlusion - denies left leg pain. Left leg is pulseless and cold below the left knee. - Repeat surgical revascularization of the left leg was unsuccessful, Acute on Chronic Afib/Flutter restarting on 10/21/16 - Rate in the 80s, pt is on heparin for Anticoagulation. - Last ECHO in Jul 2016 showed Normal EF and mitral valve calcification - Patient on Amiodarone drip, Diltiazem. Pulmonary Embolism - Pt remains ventilated with good sats, good lung sounds - CXR not significantly changed from previous - IVC filter in place due to failure of outpatient anticoagulation on Coumadin. DVT in the left lower extremity (popliteal and peroneal veins). - c/w Heparin Drip for anticoagulation. -F/u H/H Hypercoagulable State suspicious for Malignancy - DVT / PE despite supratherapeutic INR. - CTA revealed prominent mediastinal and hilar nodes - upon Dr. Casillas's review there might have been adenopathy extended two years prior on previous imagining, LLL consolidation is a new finding. - s/p repeat embolectomy of LLE LLL Consolidation - PE vs aspiration pneumonia vs malignancy - c/w Ceftriaxone . (Day #7) Azithromycin d/c'd - Blood cultures are negative. - c/w Flutter valve, chest physiotherapy and incentive spirometry DM2 - Pharmacy on board for glucose control. Hypothyroid - TSH and T4 normal in Fe. C/w Synthroid 225mcg DVT/GI Prophylaxis Heparin Drip, Pantroprazole 40mg Q5IV. Dispo: ICU, Prisoner, full code. Resident Physician Supervision Note: I interviewed and examined the patient. Discussed with Jose Luis Ritcihe MD and agree with findings and plan as documented in the note. Any exceptions or clarifications are listed here: None Pt here with DVT/PE arriving already on therapeutic anticoagulation and has 2 arterial emboli to leg, afib requiring cardioversion. Most recent attempt at embolectomy to left leg was unsuccessful, he has ischemic left leg currently. During these events developed acute respiratory failure with subsequent ventilation and management in icu. Despite all this no pain. Vitals noted, remains on vent had hypoxia last sharmin CAr is irregular at present, nor nsr but returned to afib overnight lungs are coarse left leg has cyantotic foot, no pulses but some warmth to upper lower leg, possible popliteal pulse felt thrombophilia, did have a ivc filter, ac, unfortunately likley to succumb to ischemic limb unless demarcates at a level comparable with amputation, heparin gtt and continue ceftriaxone Shock maybe septic or from ischemia causing acidosis, on nor epi gtt, this continues acute hypoxic respiratory failure support continues diabetes with insulin gtt and diabetic pharmacy management afib, s/p cardioversion while therapeutic ac, amiodarone gtt and returned to cardizem gtt Documented By: Dieudonne Panda Continued [facility] stay due to: voiding difficulties, ambulation difficulties, multiple IV medications needed Discharge planning: other (fpc) Resident Tracking Resident Involvement: Resident Care Provided Care Provided: Adult Hospital Medicine
[2016-10-24] MEDS ORDERED: NURSING VERBAL MED ORDER ONE (13:45)
[2016-10-24] MEDS ORDERED: FUROSEMIDE INJ 40 MG in SYRINGE 0 ML IV ONE (13:45)
[2016-10-24] MEDS ORDERED: IMPACT LIQ 1000 ML BAG PO SCH (14:00)
[2016-10-24] MEDS: CEFTRIAXONE SOD INJ 1 GM in DEXTROSE 5% ADD-VANTAGE 50ML 50 ML IV SCH (14:18)
--- NOTE | 2016-10-24 14:29 | DIAGNOSTIC IMAGING REPORT ---
SINGLE VIEW CHEST CLINICAL HISTORY: Pneumonia. FINDINGS: An AP, portable, upright chest radiograph is compared to study dated 10/23/2016 and correlated with chest CT dated 10/18/2016. The examination is degraded by portable technique and patient rotation. An endotracheal tube, an enteric tube, and the right internal jugular central venous catheter are unchanged in position. A catheter fragment projects over the left subclavian vein. This is unchanged from 2011. The heart is enlarged and there is atherosclerotic calcification of the thoracic aorta. The pulmonary vascular structures mildly congested.. Enlargement of the central pulmonary arteries suggests pulmonary artery hypertension. Emphysema and chronic interstitial thickening are similar to previous. An accessory azygous fissure is incidentally noted. There is a layering left pleural effusion with left basilar consolidation, not significant changed from yesterday. No pneumothorax is seen. The skeletal structures are osteopenic. The bony thorax is grossly intact. IMPRESSION: 1. Cardiomegaly and emphysema with mild pulmonary vascular congestion. 2. There is a layering left pleural effusion with left basilar consolidation, not significantly changed from yesterday. 3. Stable lines and tubes noting a persistent catheter fragment projecting over the left subclavian vein. Electronically signed by: Fidel Stevens M.D. 10/24/2016 2:28 PM Dictated Date/Time: 10/24/2016 2:25 PM
[2016-10-24] MEDS: ACETYLCYSTEINE 20% INHAL SOLN ***DISPENSED BY RESP. INH SCH ×2 (15:00→20:37)
[2016-10-24 15:22] LABS: URINE APPEARANCE CLEAR (CLEAR); URINE BILIRUBIN NEG (NEG); URINE COLOR YELLOW; URINE EPITHELIAL CELL AUTO >30 /lpf (0-5); URINE NITRITE NEG (NEG); URINE PH 5.5 (4.5-7.5); URINE SPECIFIC GRAVITY 1.013 (1.000-1.030); UROBILINOGEN NEG (NEG)
[2016-10-24 15:23] LABS: MANUAL MICROSCOPIC REQUIRED? NO; REVIEW REQ? YES
--- NOTE | 2016-10-24 15:27 | Pharmacy Progress Note ---
Glycemic: Assessment & Plan Date of Service Oct 24, 2016. Assessment & Plan The patient is currently receiving 0.7-0.8 units of insulin drip per hour. Steroid has been dc'd and Protonix drip changed to IVP. Still has multiple risk factors for insulin resistance, including infection,mechanical ventilation , tube feeding, vasopressor, multiple infusions (heparin,fentanyl, diltiazem, amiodarone). There also a possibility of further surgery. Will continue insulin drip until patient stabilizes. BSGs continue to improve, no changes needed to inpatient regimen at this time. Pharmacy will continue to monitor patient daily and write orders per [facility] inpatient glycemic control protocol. Thanks. * Please note that the plan above was derived based on current level of insulin resistance and hospital stress. These recommendations are appropriate for inpatient admission only. Plan of care upon discharge will need to be reassessed to avoid potential outpatient hypo/hyperglycemia.
[2016-10-24 15:38] LABS: PARTIAL THROMBOPLASTIN RATIO 1.9
[2016-10-24 17:25] LABS: HEMATOCRIT 23.3 % (42-52)
[2016-10-24 17:43] LABS: BUN/CREATININE RATIO 16.5 (10-20); CALCIUM 7.8 mg/dl (8.5-10.1); CREATININE 1.3 mg/dl (0.60-1.40); POTASSIUM 4.3 mmol/L (3.5-5.1)
[2016-10-24] MEDS: PANTOprazole INJ 40 MG in SYRINGE 0 ML IV SCH (19:40)
[2016-10-24] MEDS: NORTRIPTYLINE HCL 10 MG CAP PO SCH (19:41)
--- NOTE | 2016-10-24 23:49 | CRITICAL CARE PROGRESS NOTE ---
DATE: 10/24/2016 SUBJECTIVE: The patient's care was discussed in detail with his nurse Elvis today. There were no acute events overnight; however, today he had persistent desaturations again and required bronchoscopy. I found significant amount of thick secretions around the inside of the endotracheal tube and was able to eventually dislodge it and suction it out. I also went down into the left lung and lavaged the left lower lobe in particular. I did not get much sputum at that time. He remains on fentanyl, Cardizem, Levophed, heparin, amiodarone, propofol and insulin infusions. Tube feeds were started today. OBJECTIVE: VITAL SIGNS: Maximum temperature 37.5, heart rate 70s-80s, respiratory rate 20, blood pressure 115-125/50s, oxygen saturation 96%. VENTILATOR SETTINGS: Assist control, tidal volume 500, rate 20, FIO2 60%, PEEP 10, 24-hour fluid balance is positive 917 mL. NEUROLOGIC: He was drowsy, but was able to move all 4 extremities. LUNGS: When I examined he had little to no breath sounds on the left side, coarse on the right, no rhonchi or wheezes. HEART: Tachycardic and regular, no murmurs noted. ABDOMEN: Relatively flat and soft. No hepatosplenomegaly. No rebound tenderness. EXTREMITIES: Cool with the left foot mottled. No pulses by Doppler. There is trace pretibial edema bilaterally. The right foot and leg is warmer than the left and capillary refill is adequate. Pulses are audible by Doppler according to the nurse. I was unable to palpate them in the feet. LABORATORY DATA: White blood cell count 23.31, hemoglobin 8, hematocrit 23.4, platelets 263, sodium 130, potassium 4.3, chloride 93, CO2 29, BUN 21 and creatinine 1.3. PTT 50.6. Microbiology; cultures were reviewed. Portable chest x-ray from this afternoon was reviewed and shows left pleural effusion with left basilar consolidation, not changed from yesterday. MEDICATIONS AND INFUSIONS: Acetaminophen, Mucomyst, albuterol, amiodarone, Dulcolax, Rocephin, chlorhexidine, diltiazem, Colace, IMPACT, fentanyl, heparin infusion, insulin infusion, insulin sliding scale, Atrovent, levothyroxine, norepinephrine, nortriptyline, Zofran, Protonix, MiraLax, senna and propofol. IMAGING: Echocardiogram from yesterday was reviewed and shows hyperdynamic systolic function. Ejection fraction 65-70%. No regional wall motion abnormalities. Septal flattening during diastole suggesting right ventricular volume overload and severely dilated right ventricle with reduced systolic function. IMPRESSION: 1. Acute hypoxemic respiratory failure, secondary to either aspiration or postobstructive pneumonia. He is status post bronchoscopy x2 over the past day secondary to thick secretions. Bronchoalveolar lavage was performed and is not revealing thus far although he has been on antibiotics. Mucomyst was started yesterday. 2. Postoperative day #2 and #3 status post embolectomy of the left lower extremity. Eventually, he may require an amputation. He remains on a heparin infusion. 3. Atrial fibrillation with rapid ventricular response, he still goes in and out of atrial fibrillation, but seems to be doing it less often. I had resumed Cardizem last evening. He continues on IV amiodarone. 4. Pulmonary embolism and left lower extremity deep venous thrombosis; diagnosed on admission, now with echocardiogram suggesting right ventricular dilatation and overload. Status post inferior vena cava filter on 10/20/2016. 5. Hypotension, improved. 6. Hyperglycemia, improved with the insulin infusion. 7. Hypercoagulable state and concern for malignancy. Eventually, he will require bronchoscopy and some sort of diagnostics on that left lower lobe. Right now because he is on heparin infusion, that cannot be pursued. 8. 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 9. History of chronic obstructive pulmonary disease, he is receiving a pulse of Solu-Medrol 40 mg IV q. 8 hours x3 doses. This may be what is causing his increased white blood cell count. 10. Gastrointestinal bleed, has resolved. He has not had an EGD. This was after his surgery that he started to have a little bit of blood from his NG tube. He is anemic. 11. Anemia, likely multifactorial. No signs of active bleeding presently. 12. Constipation. PLAN: 1. NEUROLOGIC: Continue to decrease the fentanyl infusion. I think he is presently off his propofol as well. 2. PULMONARY: I attempted to wean his PEEP yesterday and he decompensated late in the evening today. I was hoping to put him on CPAP, but again he has a lot of secretions, primarily in the endotracheal tube. Consider exchanging the endotracheal tube. Continue bronchodilators and steroids. 3. CARDIOVASCULAR: Wean off the Levophed. Continue amiodarone and diltiazem. Continue heparin infusion. 4. GASTROINTESTINAL: Tube feeds were started today. I have discontinued his Protonix infusion and changed him to b.i.d. Protonix today. Dulcolax suppository was added. 5. RENAL: Lasix 40 mg IV was given today. I will continue to attempt to diurese him, although his creatinine is starting to rise. 6. HEMATOLOGIC: Consider transfusion of packed red blood cells. Continue heparin infusion. 7. INFECTIOUS DISEASE: Continue Rocephin for a total of seven days. He seems to have done a little bit better today. His family was at his bedside for a short period of time. Overall, he has multisystem organ failure with the possibility of an underlying malignancy. He will remain full code as per what I understand the correctional department's policy is. Critical care time excluding procedure is 90 minutes. [facility]
[2016-10-25] VITALS (28 sets, daily range): BP systolic 11–135; BP diastolic 40–73; PULSE 73–88; TEMP 36.4–37; O2SAT 83–99
[2016-10-25] MEDS ORDERED: FUROSEMIDE INJ 60 MG in SYRINGE 0 ML IV SCH (01:00)
[2016-10-25] MEDS: IPRATROPIUM BROMIDE HFA INHALER INH SCH ×3 (01:59→15:08)
[2016-10-25] MEDS: ACETYLCYSTEINE 20% INHAL SOLN ***DISPENSED BY RESP. INH SCH ×3 (01:59→15:08)
[2016-10-25] MEDS: ALBUTEROL HFA 8 GM INHALER INH SCH ×3 (01:59→15:08)
[2016-10-25] MEDS: FENTANYL CITRATE INJ 50 MCG/1 ML 2 ML VIAL IV PRN ×2 (03:06→23:15)
[2016-10-25] MEDS: FENTANYL 1250MCG/250ML NSS 250 ML IV PRN (05:22)
[2016-10-25] MEDS: LEVOTHYROXINE 75 MCG TAB PO SCH (05:23)
[2016-10-25] MEDS: HEPARIN 25,000 UNIT/500ML D5W 500 ML IV PRN ×3 (05:23→20:41)
[2016-10-25 05:32] LABS: HEMATOCRIT 24.7 % (42-52); MEAN CORPUSCULAR HEMOGLOBIN 29.2 pg (25-34); MEAN CORPUSCULAR HGB CONC 33.6 g/dl (32-36); PLATELET COUNT 256 K/uL (130-400); RED BLOOD COUNT 2.84 M/uL (4.7-6.1); WHITE BLOOD COUNT 22.55 K/uL (4.8-10.8)
[2016-10-25 05:44] LABS: PARTIAL THROMBOPLASTIN RATIO 1.4; PROTHROMBIN TIME (PATIENT) 10.7 SECONDS (9.0-12.0)
[2016-10-25] MEDS ORDERED: HEPARIN IV BOLUS 5,000 UNIT in SYRINGE 0 ML IV STA (05:53)
[2016-10-25 06:02] LABS: BUN/CREATININE RATIO 22.7 (10-20); CALCIUM 7.9 mg/dl (8.5-10.1); CREATININE 1.1 mg/dl (0.60-1.40); MAGNESIUM 2.1 mg/dl (1.8-2.4); PHOSPHORUS 3.2 mg/dl (2.5-4.9); POTASSIUM 3.6 mmol/L (3.5-5.1)
[2016-10-25 06:10] LABS: ANISOCYTOSIS PRESENT; BASO % 0.1 %; BASO ABS # 0.02 K/uL (0-0.2); COMPLETE YES; IG% 3.6 %; LYMPH % 3.8 %; LYMPH ABS # 0.85 K/uL (1.2-3.4); NEUT % 81.5 %; POLYCHROMASIA 1+
--- NOTE | 2016-10-25 07:59 | DIAGNOSTIC IMAGING REPORT ---
CHEST ONE VIEW PORTABLE CLINICAL HISTORY: Follow up infiltrates. COMPARISON STUDY: Chest CT October 18, 2016 and chest radiograph October 24, 2016. FINDINGS: The tip of the endotracheal tube is 4.1 cm above the eli. The tip of the nasogastric tube is within the proximal body of the stomach. A right internal jugular central line is in place. Cardiomediastinal silhouette is normal. Left hilar fullness and left basilar consolidation persist as well as a left pleural effusion. There is no evidence of pulmonary edema. IMPRESSION: Persistent left basilar opacity with volume loss. This may reflect pneumonia or atelectasis. Suspected associated left pleural effusion. Radiographic follow up to ensure resolution is recommended. Electronically signed by: Everton Merida M.D. 10/25/2016 7:57 AM Dictated Date/Time: 10/25/2016 7:54 AM
[2016-10-25] MEDS: INSULIN ASPART 100 UNITS/ML 3 ML PEN SC SCH ×4 (08:00→21:39)
--- NOTE | 2016-10-25 08:24 | PROGRESS NOTE ---
DATE: 10/25/2016 SUBJECTIVE: The patient is comfortable, awake. He is able to write on a pad without difficulty. He is off sedation now. Bronchoscopy done yesterday with large mucus plugs noted at the left base and pictures of that area reveals some narrowing of the what appears to be basal segment left lower lobe. This could be tumor. No biopsies done since the patient is anticoagulated. With the suctioning his respiratory status and chest x-ray have improved. He is comfortable at the present time. He does have pain in the foot that is under fairly good control. VITAL SIGNS: Blood pressure 110/45 by Art-line, oxygen saturation 94%, respiratory rate is 20. I O 3 liters in, 2150 out. Weight 71.8 kilograms. Nurses' notes reviewed and I spoke with the nursing personnel, he had a fairly good night last night. There was concern of the ischemia of his left foot a nd need for amputation. HEENT: Endotracheal tube is in good position. Sputum is scant. No subcutaneous emphysema is noted. HEART: Regular rate and rhythm. LUNGS: With decreased breath sounds left base, otherwise are clear. No rhonchi or wheezing noted. ABDOMEN: Soft, nontender. He has severe ischemia to the left foot. According to Dr. Fry's notes he may need a left BKA. LABORATORY DATA: White count 22.5, hemoglobin 8.3, platelet count 256,000. PRP is stable with a BUN of 25. Sugars have been in the 126-156 range. AST slightly elevated. Albumin is reduced. PTT is only 36.3 seconds. Urinalysis revealed some hyaline casts, epithelial casts and some granular casts as well. AFB and fungal smears are pending from bronchial washings left lower lobe from the . His chest film this morning showed improvement in the left lower lobe atelectasis with hazy infiltrate in that area and the endotracheal tube seemed to be about 2 cm above the eli. IMPRESSION: 1. Respiratory failure. 2. Left lower lobe atelectasis and infiltrate. It is certainly conceivable he could have a left lower lobe tumor and that is what it looks like on the bronchoscopy. No biopsies or brushings were done. 3. Pulmonary embolism. 4. Ischemia left foot. RECOMMENDATIONS: 1. At this point, the patient seems to be comfortable. I would consider having Dr. Vaughan evaluate the patient tomorrow for consideration for bronchoscopy while he is intubated and off anticoagulants for about 12 hours to biopsy that left lower lobe. That could be the etiology or at least related to the pulmonary emboli. 2. Continue with weaning from the ventilator. 3. Consider oral feeding since the patient exhibits significant hypoalbuminemia. The patient will be followed by Dr. Vaughan starting tomorrow. ANT
[2016-10-25 08:48] LABS: ISTAT ALLEN TEST Pass; ISTAT ARTERIAL BLOOD GAS HCO3 31 meq/L (19-24); ISTAT ARTERIAL BLOOD GAS PCO2 47 mmHg (35-46); ISTAT ARTERIAL BLOOD GAS PO2 79 mmHg (80-95); ISTAT ARTERIAL BLOOD GAS pH 7.43 (7.35-7.45); ISTAT CARBON DIOXIDE 33 mEq/l (24-31); ISTAT DELIVERY SYSTEM Ventilator; ISTAT FIO2 50 %; ISTAT PEEP 8; ISTAT RATE 20; ISTAT SITE Art Line; VE 9.3; Vt 500
[2016-10-25] MEDS: DILTIAZEM HCL INJ 125 MG in DEXTROSE 5% 100ML IV PRN (08:58)
[2016-10-25] MEDS: DOCUSATE SODIUM 100 MG/10 ML UDC PO SCH ×2 (08:59→20:49)
[2016-10-25] MEDS: SENNA 17.6 MG/10 ML UDP PO SCH (08:59)
[2016-10-25] MEDS: AMIODARONE / D5W 200 ML IV SCH ×2 (08:59→20:40)
[2016-10-25] MEDS: PANTOprazole INJ 40 MG in SYRINGE 0 ML IV SCH (08:59)
[2016-10-25] MEDS: POLYETHYLENE (MIRALAX) 17 GM PACK PO SCH ×2 (08:59→20:49)
[2016-10-25] MEDS: CHLORHEXIDINE GLUCONATE 0.12% 480 ML MT SCH (09:00)
--- NOTE | 2016-10-25 09:35 | Progress Note ---
Progress Note Date of Service Oct 25, 2016. Progress Note Pain controlled on fentanyl Incisions clean and dry. Doppler popliteal on left. Leg warm to just above ankle Foot cold to touch and discolored Will plan on BKA mid week. He understands and agreed to amputation.
--- NOTE | 2016-10-25 11:06 | Family Medicine Progress Note ---
Progress Note Date of Service Oct 25, 2016. Subjective Pt evaluation today including: conversation w/ patient, physical exam, chart review, lab review, review of studies, conversation w/ security system sales consultant, review of inpatient medication list Pain: denies pain PO Intake: tube feeds Voiding: hopson catheter in place Overnight patient experienced a desaturation event into the 80's. He was given a another bronchoscopy and suctioned to removed mucus plugs. Saturation subsequently improved. Currently, he is weaned off pressors and sedation. He is awake and alert, remains intubated on CPAP with Fio2 of 50%. Possible extubation today. Afib converted to normal sinus. Remains on Cardizem drip. Patient indicated while on cpap it was more difficult to breath. Additional Comments: could not asses complete ROS, patient intubated. Refer to HPI for pertinent symptoms Medications Current Inpatient Medications Medications (Trade) Dose Ordered Sig/Malcolm Route Start Time Stop Time Status Last Admin Dose Admin Levothyroxine Sodium (Synthroid Tab) 225 mcg DAILYBB PO 10/18/16 08:30 11/17/16 08:29 10/25/16 05:23 225 MCG Nortriptyline HCl (Pamelor Cap) 10 mg HS PO 10/18/16 21:00 11/17/16 20:59 10/24/16 19:41 10 MG Miscellaneous Information (Order Awaiting Action) 1 ea QS N/A 10/18/16 08:00 11/17/16 07:59 Acetaminophen (Tylenol Tab) 650 mg Q4H PRN PO 10/18/16 06:45 11/17/16 06:44 10/21/16 05:23 650 MG Ondansetron HCl 4 mg 4 mg Q6H PRN IV 10/18/16 06:45 11/17/16 06:44 10/20/16 08:00 4 MG Ceftriaxone Sodium/Dextrose (Rocephin Inj/ Dextrose Add-[place] 50ML) 50 ml @ 100 mls/hr DAILY@1400 IV 10/18/16 14:00 10/25/16 13:59 10/24/16 14:18 100 MLS/HR Chlorhexidine Gluconate 15 ml 15 ml BID MT 10/21/16 21:00 11/20/16 20:59 10/25/16 09:00 15 ML Norepinephrine Bitartrate/ Dextrose (Levophed Inj/ D5W 500ml) 508 ml @ 0 mls/hr Q0M PRN IV 10/21/16 13:30 11/20/16 13:29 10/24/16 13:18 17 MLS/HR Insulin Aspart (novoLOG ASPART) SLIDING SCALE HS SC 10/21/16 17:15 11/20/16 17:14 Glucose (Glucose 40% Gel) 15-30 GRAMS 15 GRAMS... UD PRN PO 10/21/16 14:45 11/20/16 14:44 Glucose (Glucose Chew Tab) 4-8 Tablets 4 Tabl... UD PRN PO 10/21/16 14:45 11/20/16 14:44 Dextrose (Dextrose 50% 50ML Syringe) 25-50ML OF 50% DW IV FOR... UD PRN IV 10/21/16 14:45 11/20/16 14:44 Glucagon 1 mg 1 mg UD PRN SQ 10/21/16 14:45 11/20/16 14:44 Insulin Human Regular 250 units/ Sodium Chloride 252.5 ml @ 0 mls/hr DAILY@1130 IV 10/21/16 16:15 11/20/16 16:14 10/24/16 12:32 0.8 MLS/HR Fentanyl Citrate (Fentanyl Drip 1250MCG/250 Nss) 250 ml @ 0 mls/hr Q0M PRN IV 10/21/16 16:15 11/04/16 16:14 10/25/16 05:22 20 MLS/HR Fentanyl Citrate 50 mcg 50 mcg Q2H PRN IV 10/21/16 16:15 11/04/16 16:14 10/25/16 03:06 50 MCG Heparin Sodium/ Dextrose (Heparin 25,000 Unit/500ml D5W) 500 ml @ 28 mls/hr [id number] PRN IV 10/21/16 23:45 11/20/16 23:44 10/25/16 06:20 28 MLS/HR Albuterol (Ventolin Hfa Inhaler) 4 puffs Q6R INH 10/22/16 03:00 11/21/16 02:59 10/25/16 07:15 4 PUFFS Ipratropium [place] (Atrovent Hfa Inhaler) 4 puffs Q6R INH 10/22/16 03:00 11/21/16 02:59 10/25/16 07:15 4 PUFFS Docusate Sodium (coLACE SYRUP) 100 mg BID PO 10/22/16 09:00 11/21/16 08:59 10/25/16 08:59 100 MG Miscellaneous Information 1 ea 1 ea UD PRN N/A 10/22/16 09:45 11/21/16 09:44 Amiodarone HCL/ Dextrose (Nexterone / D5w) 200 ml @ 16.7 mls/hr [id number] IV 10/22/16 22:00 11/21/16 21:59 10/25/16 08:59 16.7 MLS/HR Heparin Sodium (Porcine) (Heparin 10 Unit/ ml 5 ml Flush) 5 ml PRN PRN FLUSH 10/23/16 00:15 11/22/16 00:14 Polyethylene 17 gm 17 gm BID PO 10/23/16 09:00 11/22/16 08:59 10/25/16 08:59 17 GM Diltiazem HCl/ Dextrose (Cardizem Inj/D5 100ml) 125 ml @ 0 mls/hr Q0M PRN IV 10/23/16 18:30 11/22/16 18:29 10/25/16 08:58 10 MLS/HR Propofol (Diprivan Iv Emulsion 100ml Vial) 1 dose UD PRN IV 10/23/16 18:45 10/26/16 18:44 10/24/16 02:48 1 DOSE Senna (Senokot Syrup) 17.6 mg QAM PO 10/25/16 09:00 11/24/16 08:59 10/25/16 08:59 17.6 MG Bisacodyl (Dulcolax Supp) 10 mg DAILY PRN SD 10/24/16 12:30 11/23/16 12:29 Acetylcysteine 3 ml 3 ml Q6R INH 10/24/16 15:00 11/23/16 14:59 10/25/16 07:15 3 ML Pantoprazole Sodium/Syringe (Protonix Inj/ Syringe) 10 ml @ 5 mls/min BID@0900,2100 IV 10/24/16 21:00 11/23/16 20:59 10/25/16 08:59 5 MLS/MIN Enteral Nutritional Formula (Impact 1.0 Angel) 1,000 ml UD PO 10/24/16 14:00 11/23/16 13:59 10/24/16 14:18 1,000 ML Objective Vital Signs Date Time Temp Pulse Resp B/P Pulse Ox O2 Delivery O2 Flow Rate FiO2 10/25/16 12:40 50 10/25/16 12:26 81 10 11/48 97 Mechanical Ventilator 50 107/72 10/25/16 12:00 Mechanical Ventilator 50 10/25/16 11:40 50 10/25/16 10:00 77 10 117/47 97 Mechanical Ventilator 50 98/56 10/25/16 08:00 79 20 114/46 97 Mechanical Ventilator 50 123/54 10/25/16 08:00 60 10/25/16 08:00 Mechanical Ventilator 50 10/25/16 07:15 50 10/25/16 06:00 88 20 110/45 85 102/58 10/25/16 05:30 81 20 119/49 94 101/56 10/25/16 05:13 50 10/25/16 05:00 85 21 119/51 94 107/62 10/25/16 04:14 101/58 10/25/16 04:00 Mechanical Ventilator 60 10/25/16 04:00 85 20 117/53 94 113/63 10/25/16 04:00 60 10/25/16 03:30 83 21 130/56 95 107/57 10/25/16 03:00 82 20 123/57 95 10/25/16 02:00 77 22 117/53 97 10/25/16 02:00 37.0 77 22 117/53 97 104/59 10/25/16 01:59 50 10/25/16 01:01 85 18 132/55 90 10/25/16 00:24 36.7 83 22 116/65 97 10/25/16 00:00 60 10/25/16 00:00 82 17 135/58 98 10/25/16 00:00 82 17 135/58 98 117/51 10/25/16 00:00 Mechanical Ventilator 60 10/24/16 23:56 37.0 86 23 100/56 97 10/24/16 23:35 60 10/24/16 23:34 37.0 81 18 100/56 100 10/24/16 23:26 60 10/24/16 23:20 37.0 80 20 108/61 98 10/24/16 23:05 36.5 79 20 108/61 100 10/24/16 23:00 80 19 131/55 100 10/24/16 22:00 80 20 123/50 100 10/24/16 22:00 80 20 123/50 100 112/65 10/24/16 21:00 78 20 109/45 98 10/24/16 20:37 60 10/24/16 20:00 Mechanical Ventilator 60 10/24/16 20:00 60 10/24/16 20:00 36.9 78 20 108/46 98 Mechanical Ventilator 60 101/55 10/24/16 19:30 79 20 112/47 98 Mechanical Ventilator 60 106/59 10/24/16 19:00 80 21 128/54 99 Mechanical Ventilator 60 108/57 10/24/16 18:09 37.2 85 20 135/59 100 Mechanical Ventilator 60 109/61 10/24/16 18:00 60 10/24/16 16:00 78 20 119/54 99 Mechanical Ventilator 60 114/73 10/24/16 16:00 60 10/24/16 16:00 Mechanical Ventilator 60 10/24/16 15:32 80 10/24/16 14:00 80 20 121/55 99 Mechanical Ventilator 60 115/65 Physical Exam Notes: GENERAL: alert, intubated on cpap, FIO@ 50,no distress EYE EXAM: normal conjunctiva, PERRL and EOM's grossly intact OROPHARYNX: ET tube in place NECK: supple, no nuchal rigidity, no adenopathy, non-tender LUNGS: Clear to auscultation. Normal chest wall mechanics, breath sounds quieter on Left HEART: no murmurs, RRR ABDOMEN: abdomen soft, non-tender, normo-active bowel sounds, no masses, no rebound or guarding. SKIN: walm/dry,no rashes UPPER EXTREMITIES: upper extremities are grossly normal. LOWER EXTREMITIES: LLE Pale cool, Left foot blue in color with demarcation, Popliteal pulse intact. no dorsalis pedis, post. tibial pulses. RLE grossly normal. no calf tenderness, Laboratory Results Results Past 24 Hours Test 10/24/16 14:15 10/24/16 15:12 10/24/16 16:12 10/24/16 17:03 Range/Units Urine Color YELLOW Urine Appearance CLEAR CLEAR Urine pH 5.5 4.5-7.5 Urine Specific [place] 1.013 1.000-1.030 Urine Protein NEG NEG Urine Glucose (UA) NEG NEG Urine Ketones NEG NEG Urine Occult Blood TRACE NEG Urine Nitrite NEG NEG Urine Bilirubin NEG NEG Urine Urobilinogen NEG NEG Urine Leukocyte Esterase NEG NEG Urine WBC (Auto) 1-5 0-5 /hpf Urine RBC (Auto) 0-4 0-4 /hpf Urine Hyaline Casts (Auto) 10-30 0-5 /lpf Urine Epithelial Cells (Auto) >30 0-5 /lpf Urine Bacteria (Auto) NEG NEG Urine Renal Epithelial Cells 0-5 /lpf Urine Pathogenic Casts 10-20 GRANULAR CASTS 0 /lpf Activated Partial Thromboplast Time 50.6 21.0-31.0 SECONDS Partial Thromboplastin Ratio 1.9 Bedside Glucose (other) 161 70-99 mg/dl Hemoglobin 7.8 14.0-18.0 g/dL Hematocrit 23.3 42-52 % Sodium Level 130 136-145 mmol/L Potassium Level 4.3 3.5-5.1 mmol/L Chloride Level 93 98-107 mmol/L Carbon Dioxide Level 29 21-32 mmol/L Anion Gap 8.0 3-11 mmol/L Blood Urea Nitrogen 21 7-18 mg/dl Creatinine 1.30 0.60-1.40 mg/dl Est Creatinine Clear Calc Drug Dose 52.6 ml/min Estimated GFR () 65.0 Estimated GFR (Non- 56.1 BUN/Creatinine Ratio 16.5 10-20 Random Glucose 150 70-99 mg/dl Calcium Level 7.8 8.5-10.1 mg/dl Test 10/24/16 20:25 10/25/16 00:12 10/25/16 01:26 10/25/16 02:22 Range/Units Bedside Glucose 146 118 124 126 70-99 mg/dl Test 10/25/16 03:25 10/25/16 05:08 10/25/16 05:19 10/25/16 08:21 Range/Units Bedside Glucose 133 156 70-99 mg/dl White Blood Count 22.55 4.8-10.8 K/uL Red Blood Count 2.84 4.7-6.1 M/uL Hemoglobin 8.3 14.0-18.0 g/dL Hematocrit 24.7 42-52 % Mean Corpuscular Volume 87.0 80-100 fL Mean Corpuscular Hemoglobin 29.2 25-34 pg Mean Corpuscular Hemoglobin Concent 33.6 32-36 g/dl Platelet Count 256 130-400 K/uL Mean Platelet Volume 10.0 7.4-10.4 fL Neutrophils (%) (Auto) 81.5 % Lymphocytes (%) (Auto) 3.8 % Monocytes (%) (Auto) 11.0 % Eosinophils (%) (Auto) 0.0 % Basophils (%) (Auto) 0.1 % Neutrophils # (Auto) 18.39 1.4-6.5 K/uL Lymphocytes # (Auto) 0.85 1.2-3.4 K/uL Monocytes # (Auto) 2.47 0.11-0.59 K/uL Eosinophils # (Auto) 0.01 0-0.5 K/uL Basophils # (Auto) 0.02 0-0.2 K/uL RDW Standard Deviation 49.0 36.4-46.3 fL RDW Coefficient of Variation 15.5 11.5-14.5 % Immature Granulocyte % (Auto) 3.6 % Immature Granulocyte # (Auto) 0.81 0.00-0.02 K/uL Polychromasia 1+ Basophilic Stippling 1+ Anisocytosis PRESENT Prothrombin Time 10.7 9.0-12.0 SECONDS Prothromb Time International Ratio 1.0 0.9-1.1 Activated Partial Thromboplast Time 36.3 21.0-31.0 SECONDS Partial Thromboplastin Ratio 1.4 Sodium Level 132 136-145 mmol/L Potassium Level 3.6 3.5-5.1 mmol/L Chloride Level 92 98-107 mmol/L Carbon Dioxide Level 30 21-32 mmol/L Anion Gap 10.0 3-11 mmol/L Blood Urea Nitrogen 25 7-18 mg/dl Creatinine 1.10 0.60-1.40 mg/dl Est Creatinine Clear Calc Drug Dose 62.2 ml/min Estimated GFR () 79.5 Estimated GFR (Non- 68.6 BUN/Creatinine Ratio 22.7 10-20 Random Glucose 134 70-99 mg/dl Calcium Level 7.9 8.5-10.1 mg/dl Phosphorus Level 3.2 2.5-4.9 mg/dl Magnesium Level 2.1 1.8-2.4 mg/dl Total Bilirubin 0.4 0.2-1 mg/dl Direct Bilirubin 0.2 0-0.2 mg/dl Aspartate Amino Transf (AST/SGOT) 41 15-37 U/L Alanine Aminotransferase (ALT/SGPT) 24 12-78 U/L Alkaline Phosphatase 79 45-117 U/L Total Protein 5.1 6.4-8.2 gm/dl Albumin 1.9 3.4-5.0 gm/dl Blood Gas Sample Site Art Line Bedside Blood Gas pH (LAB) 7.43 7.35-7.45 Bedside Blood Gas pCO2 (LAB) 47 35-46 mmHg Bedside Blood Gas pO2 (LAB) 79 80-95 mmHg Bedside Blood Gas HCO3 (LAB) 31 19-24 meq/L Bedside Blood Gas Total CO2 33 24-31 mEq/l Bedside Blood Gas Base Excess (LAB) 7.0 -9-1.8 meq/L Bedside Blood Gas O2 Saturation 96.0 90-95 % Tio Test Pass Oxygen Delivery Device Ventilator Bedside Oxygen Rate (breaths/min) 20 Blood Gas Minute Ventilation 9.3 Bedside FiO2 50 % Blood Gas Tidal Volume 500 Blood Gas PEEP 8 Test 10/25/16 09:21 10/25/16 12:03 Range/Units Bedside Glucose 172 70-99 mg/dl Activated Partial Thromboplast Time 77.2 21.0-31.0 SECONDS Partial Thromboplastin Ratio 3.0 Microbiology Results 10/24/16 Urine Culture - Preliminary, Resulted NO GROWTH - LESS THAN 1,000 COLONIES/... Assessment and Plan 70 yo M prisoner w/hx of Smoking, Chronic Atrial Flutter on Coumadin, COPD, p/w SOB, cough, hemoptysis found to have multiple PE's on CTA, LLL consolidation in addition to Acute occlusion of the Left popliteal artery s/p embolectomy x2 , will require BKA Acute Hypoxic Resp failure - desaturation suspected to be due to mucus plugs LLL -s/p bronchoscopy (10/23, 10/25), with suction -Bronchial washings, no growth to date -MRSA swab negative -c/w ceftriaxone Hypotension -BP stable - Pt is on Ceftriaxone for pneumonia. Azithromycin d/c'd - Levophed d/c'd Left Lower Extremity Artery Occlusion - denies left leg pain. Left leg is pulseless and cold below the left knee. - Repeat surgical revascularization of the left leg was unsuccessful -Per Dr. Fry, plan for L BKA next week Acute on Chronic Afib/Flutter restarting on 10/21/16 - Rate in the 80s, pt is on heparin for Anticoagulation. - Last ECHO in Jul 2016 showed Normal EF and mitral valve calcification - c/w Amiodarone drip, Diltiazem. Pulmonary Embolism - Pt on cpap with good sats, clear lungs, denied calf pain, chest cortés - IVC filter in place due to failure of outpatient anticoagulation on Coumadin. DVT in the left lower extremity (popliteal and peroneal veins). - c/w Heparin Drip for anticoagulation. -F/u H/H Hypercoagulable State suspicious for Malignancy - DVT / PE despite supratherapeutic INR. - CTA revealed prominent mediastinal and hilar nodes - upon Dr. Casillas's review there might have been adenopathy extended two years prior on previous imagining, LLL consolidation is a new finding. - s/p repeat embolectomy of LLE LLL Consolidation - PE vs aspiration pneumonia vs malignancy - CXR not significantly changed from previous - c/w Ceftriaxone . (Day #8) Azithromycin d/c'd - Blood cultures are negative. - c/w Flutter valve, chest physiotherapy and incentive spirometry DM2 - glycemic consult Hypothyroid - TSH and T4 normal in Feb. C/w Synthroid 225mcg DVT/GI Prophylaxis Heparin Drip, Pantoprazole 40mg Q5IV. Resident Physician Supervision Note: I interviewed and examined the patient. Discussed with Jose Luis Ritchie MD and agree with findings and plan as documented in the note. Any exceptions or clarifications are listed here: None Pt here with DVT/PE arriving already on therapeutic anticoagulation and has 2 arterial emboli to leg, afib requiring cardioversion. Most recent attempt at embolectomy to left leg was unsuccessful, he has ischemic left leg is being evaluated for BKA this week. During these events developed acute respiratory failure with subsequent ventilation and management in icu is being weaned and considered for extubation Vitals noted, remains on vent had recent therapeutic bronchoscopy with concern for possible extrinsic compression of airway CAr is irregular at present, nsr but recent PAF lungs are coarse left leg has cyantotic foot, no pulses but some warmth to upper lower leg, possible popliteal pulse felt thrombophilia, did have a ivc filter, ac, consider amputation, heparin gtt and continue ceftriaxone Shock resolving off nor epi gtt acute hypoxic respiratory failure support continues, looking like is progressing to possible extubation diabetes with insulin gtt and diabetic pharmacy management afib, s/p cardioversion while therapeutic ac, amiodarone gtt and returned to cardizem gtt Documented By: Dieudonne Panda Dispo: ICU, Prisoner, full code. Continued [facility] stay due to: other (pending BKA) Discharge planning: other (skilled nursing facility) Resident Tracking Resident Involvement: Resident Care Provided Care Provided: Adult Hospital Medicine
[2016-10-25] MEDS ORDERED: FUROSEMIDE 40 MG/4 ML VIAL IV STA (11:33)
--- NOTE | 2016-10-25 12:42 | DIAGNOSTIC IMAGING REPORT ---
CHEST ONE VIEW PORTABLE CLINICAL HISTORY: Follow-up infiltrate. COMPARISON STUDY: Chest CT October 18, 2016 and chest radiograph performed earlier today. FINDINGS: The tip of the endotracheal tube is 3.5 cm above the eli. A right internal jugular central line remains in place. The tip of the nasogastric tube is below the lower aspect of this image but at least within the proximal body of the stomach. A left subclavian central line is in place. There is no pneumothorax. A left pleural effusion persists. Left infrahilar opacity with left lower lobe volume loss is noted. There is mild right basilar opacity. There is pulmonary vascular congestion with suspected mild pulmonary edema. IMPRESSION: 1. Persistent left basilar opacity with lower lobe volume loss. This may reflect consolidation or atelectasis. Radiographic follow up is recommended. 2. No change in left hilar/infrahilar fullness which be assessed on subsequent exams to exclude underlying mass/lymphadenopathy. 3. Tip of endotracheal tube 3.5 cm above the eli. 4. Mild pulmonary edema. Electronically signed by: Everton Merida M.D. 10/25/2016 12:41 PM Dictated Date/Time: 10/25/2016 12:39 PM
[2016-10-25] MEDS ORDERED: INSULIN GLARGINE SOLOSTAR 100 UNITS/ML 3 ML PEN SC ONE (16:00)
--- NOTE | 2016-10-25 16:16 | Pharmacy Progress Note ---
Glycemic Control: Progress Nt Date of Service Oct 25, 2016. Scope Glycemic Pharmacist consulted by Dr Coleman on 10/21/16 for glycemic control and to write orders per [facility] inpatient glycemic control protocol. Objective Accuchecks BSG (last 24hrs): Test 10/24/16 17:03 10/24/16 20:25 10/25/16 00:12 10/25/16 01:26 Random Glucose 150 mg/dl (70-99) Bedside Glucose 146 mg/dl (70-99) 118 mg/dl (70-99) 124 mg/dl (70-99) Test 10/25/16 02:22 10/25/16 03:25 10/25/16 05:08 10/25/16 05:19 Bedside Glucose 126 mg/dl (70-99) 133 mg/dl (70-99) 156 mg/dl (70-99) Random Glucose 134 mg/dl (70-99) Test 10/25/16 09:21 10/25/16 13:34 Bedside Glucose 172 mg/dl (70-99) 168 mg/dl (70-99) Laboratory Data (last 24hrs) Test 10/24/16 17:03 10/25/16 05:08 Anion Gap 8.0 mmol/L 10.0 mmol/L BUN/Creatinine Ratio 16.5 22.7 Blood Urea Nitrogen 21 mg/dl 25 mg/dl Creatinine 1.30 mg/dl 1.10 mg/dl Potassium Level 4.3 mmol/L 3.6 mmol/L Sodium Level 130 mmol/L 132 mmol/L White Blood Count 22.55 K/uL Red Blood Count 2.84 M/uL Hemoglobin 8.3 g/dL Hematocrit 24.7 % Mean Corpuscular Volume 87.0 fL Mean Corpuscular Hemoglobin 29.2 pg Mean Corpuscular Hemoglobin Concent 33.6 g/dl Platelet Count 256 K/uL Mean Platelet Volume 10.0 fL Neutrophils (%) (Auto) 81.5 % Lymphocytes (%) (Auto) 3.8 % Monocytes (%) (Auto) 11.0 % Eosinophils (%) (Auto) 0.0 % Basophils (%) (Auto) 0.1 % Neutrophils # (Auto) 18.39 K/uL Lymphocytes # (Auto) 0.85 K/uL Monocytes # (Auto) 2.47 K/uL Eosinophils # (Auto) 0.01 K/uL Basophils # (Auto) 0.02 K/uL HbA1c: Test 10/22/16 05:38 Hemoglobin A1c 6.1 % (4.5-5.6) H Recent Pertinent Medications Outpatient Anti-diabetic Regimen: * N/A The patient is currently receiving: * Insulin drip * Goal range 140-200 mg/dL * Current rate: .06 units/hr Risk Factors for Insulin Resistance: * Infection * IVF * Recent Surgery * Diet Assessment & Plan ASSESSMENT: * 70 yo M admitted to the ICU 10/21, initiated on insulin drip for BSGs >300 mg/ dL * Nurse called pharmacy to report patient doing much better today * Insulin drip rates have consistently trended down over the past 72 hours * Stressors have changed: Patient extubated, off sedation, off pressors, off tube feeds * MD to initiate clear liquid diet * Patient remains critical; however, it seems appropriate at this time that patient can be safely transitioned off insulin drip * I will initiate weight-based dosing, between a stress of 1 and 2- this is speed runner than usual but patient is not on insulin at baseline and multiple stressors have been removed today * ADA & AACE recommend a goal blood sugar range 140-180 mg/dl for the majority of critically ill & non-critically ill patients. However, more stringent targets may be selected in individual cases. PLAN FOR INPATIENT GLYCEMIC CONTROL: * Continue Insulin drip 6 hours after Lantus dose given, or when drip held per calculator, whichever happens sooner * Goal Range 140 - 200 mg/dl * Basal insulin with LANTUS 7 units SQ BID * Give first dose now (~1600) * Given this transition is late in the day, hold off on re-dose and see how patient does with light does of Lantus * Add more frequent Novolog checks incase basal is not aggressive enough * Correctional Insulin with NOVOLOG per scale ACHS + 00,04 * Goal Range: Low 140 mg/dL - High 180 mg/dL * Correction Factor: 35 mg/dL/unit * Nutritional / Prandial insulin per carb ratio of 1 unit per 15 grams CHO consumed * Please note that the plan above was derived based on current level of insulin resistance and hospital stress. These recommendations are appropriate for inpatient admission only. Plan of care upon discharge will need to be reassessed to avoid potential outpatient hypo/hyperglycemia. Thank you.
[2016-10-25] MEDS ORDERED: BISACODYL 10 MG SUPP PR STA (17:55)
[2016-10-25] MEDS ORDERED: BISACODYL 10 MG SUPP PR PRN (18:00)
--- NOTE | 2016-10-25 19:16 | CRITICAL CARE PROGRESS NOTE ---
DATE: 10/25/2016 SUBJECTIVE: There were no acute events overnight. The patient remained on assist control and was placed on CPAP today. He was extubated this afternoon. He was not having any significant endotracheal tube secretions today. He has not had a bowel movement in 5 days. He was tolerating his tube feeds. He has remained in normal sinus rhythm for the past 24 hours. He remains on a Cardizem infusion. OBJECTIVE: VITAL SIGNS: Maximum temperature 37, heart rate 70-80, respiratory rate 20-22, blood pressure 107-123/40s-50s, oxygen saturation 97%. Ventilator settings, this morning; assist control, tidal volume 500, rate 20, FIO2 50%, PEEP 8, 24hour fluid balance is positive 857 mL. GENERAL: When I saw him, he was awake, alert and in no distress. NEUROLOGIC: He follows commands and moved all 4 extremities. CAM assessment is negative. LUNGS: Decreased breath sounds in the bases, left greater than right. No rhonchi or wheezes. HEART: Regular rate and rhythm, no murmur. ABDOMEN: Firm, nondistended and nontender. EXTREMITIES: Cool with mottling of the left foot which is unchanged, 1+ pretibial edema and 1+ edema in the hands. LABORATORIES: White blood cell count 22.5, hemoglobin 8.3, hematocrit 24.7, platelets 256. Sodium 132, potassium 3.6, chloride 92, CO2 30, BUN 25, creatinine 1.1, calcium 7.9, blood sugar 156, PTT 36.3 and 77.2, pH 7.43, pCO2 of 47, pO2 79 and HCO3 33. Microbiology data has been reviewed. No organism has been identified for his pneumonia. IMAGING: Portable chest x-ray from this morning was reviewed and shows persistent left basilar opacity. There is left hilar fullness which is unchanged and mild pulmonary edema. MEDICATIONS AND INFUSIONS: After extubation; acetaminophen, Mucomyst, amiodarone, Dulcolax, diltiazem infusion 5 mg per hour, Colace, fentanyl p.r.n., heparin infusion, sliding scale insulin, Lantus, Atrovent, Xopenex, Pamelor, Zofran, Protonix, MiraLax and senna. IMPRESSION: 1. Acute hypoxemic respiratory failure; he presented to the ICU after his first an embolectomy. He was being treated for pneumonia since admission. 2. Left lower lobe pneumonia, this may be post-obstructive. We have no organism. At some point he will need a bronchoscopy with brushings or biopsies of that left lower lobe. Based on CT scan and bronchoscopy he is suspicious for malignancy. 3. Postoperative day #3 and #4 status post embolectomy of the left lower extremity. He remains on heparin infusion and the foot continues to mottle. Dr. Fry is planning an amputation later in the week. 4. Atrial fibrillation with rapid ventricular response, on amiodarone infusion as well as a small amount of Cardizem. Consider changing the IV amiodarone to p.o. 5. 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 6. Hyperglycemia without history of diabetes, transitioned from insulin infusion to subcutaneous insulin today. 7. Hypercoagulable state, he was diagnosed with pulmonary embolism and deep venous thrombosis while therapeutic on Coumadin. He was placed on Lovenox and was changed to heparin infusion between his first and second embolectomy. 8. 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 9. History of chronic obstructive pulmonary disease, status post 3 doses of Solu-Medrol 40 mg IV q. 8 hours. 10. Gastrointestinal bleed, resolved clinically. 11. Anemia, multifactorial. Status post 1 unit packed red blood cells. 12. Constipation. 13. Hyponatremia, improving. 14. Leukocytosis; which may be exacerbated by his lower extremity ischemia and pulse dose steroids. PLAN: NEUROLOGIC: Avoid narcotics if at all possible secondary to his constipation. Continue Pamelor. PULMONARY: He was extubated today. Encourage incentive spirometry. Continue bronchodilators. CARDIOVASCULAR: Continue amiodarone at Cardizem infusions as well as heparin for now. I am diuresing him today. GASTROINTESTINAL: Begin clear liquid diet and advance to carbohydrate controlled as tolerated. Change b.i.d. Protonix IV to p.o. He may need an enema. RENAL: Diuresis with Lasix and replete electrolytes. Strive for negative fluid balance. HEME: Follow H\T\H. INFECTIOUS DISEASE: Discontinue Rocephin, he has had 7 days. He also had azithromycin for 6 days. Overall, he has done remarkably well in the past 24 hours. I will order physical therapy and occupational therapy. Out of bed to chair tomorrow. Critical care time, 60 minutes.
[2016-10-25 19:44] LABS: PARTIAL THROMBOPLASTIN RATIO 1.9
[2016-10-25 19:50] LABS: BUN/CREATININE RATIO 25.8 (10-20); CALCIUM 7.6 mg/dl (8.5-10.1); CREATININE 0.88 mg/dl (0.60-1.40); MAGNESIUM 2.1 mg/dl (1.8-2.4); POTASSIUM 2.9 mmol/L (3.5-5.1)
[2016-10-25] MEDS: IPRATROPIUM BROMIDE NEB SOLN 0.02% 2.5 ML VIAL INH SCH (20:11)
[2016-10-25] MEDS: LEVALBUTEROL 1.25MG/0.5ML NEB INH SCH (20:11)
[2016-10-25] MEDS ORDERED: NURSING VERBAL MED ORDER ONE (20:15)
[2016-10-25] MEDS ORDERED: POTASSIUM CHLORIDE 20 MEQ TABCR PO ONE (20:30)
[2016-10-25] MEDS: PANTOprazole SOD 40 MG TAB PO SCH (20:50)
[2016-10-25] MEDS: NORTRIPTYLINE HCL 10 MG CAP PO SCH (20:50)
[2016-10-25] MEDS: POTASSIUM CHLR 20MEQ / WTR IV SCH ×2 (20:59→22:54)
[2016-10-25] MEDS ORDERED: POTASSIUM CHLR 10MEQ / WTR IV SCH (21:00)
[2016-10-26] VITALS (41 sets, daily range): BP systolic 86–129; BP diastolic 47–68; PULSE 73–88; TEMP 36.4–37; O2SAT 88–98
[2016-10-26] MEDS: DILTIAZEM HCL INJ 125 MG in DEXTROSE 5% 100ML IV PRN (00:44)
[2016-10-26] MEDS: POTASSIUM CHLR 20MEQ / WTR IV SCH (00:44)
[2016-10-26] MEDS: LEVALBUTEROL 1.25MG/0.5ML NEB INH SCH ×4 (02:18→19:53)
[2016-10-26] MEDS: IPRATROPIUM BROMIDE NEB SOLN 0.02% 2.5 ML VIAL INH SCH ×4 (02:18→19:53)
[2016-10-26] MEDS: INSULIN ASPART 100 UNITS/ML 3 ML PEN SC SCH ×6 (04:00→20:45)
[2016-10-26] MEDS: LEVOTHYROXINE 75 MCG TAB PO SCH (05:56)
[2016-10-26 05:59] LABS: BASO % 0.2 %; BASO ABS # 0.03 K/uL (0-0.2); EOS % 0.1 %; HEMATOCRIT 22.5 % (42-52); IG% 2.8 %; LYMPH ABS # 0.81 K/uL (1.2-3.4); MEAN CELL VOLUME 86.5 fL (80-100); MEAN CORPUSCULAR HEMOGLOBIN 28.8 pg (25-34); MEAN CORPUSCULAR HGB CONC 33.3 g/dl (32-36); MEAN PLATELET VOLUME 9.5 fL (7.4-10.4); MONO % 10.4 %; NEUT % 81.5 %; PLATELET COUNT 218 K/uL (130-400); WHITE BLOOD COUNT 16.17 K/uL (4.8-10.8)
[2016-10-26 06:23] LABS: PARTIAL THROMBOPLASTIN RATIO 1.5
[2016-10-26] MEDS: FENTANYL CITRATE INJ 50 MCG/1 ML 2 ML VIAL IV PRN ×2 (06:28→20:44)
[2016-10-26 06:30] LABS: COMPLETE YES; POLYCHROMASIA 1+
[2016-10-26 06:41] LABS: BUN/CREATININE RATIO 24.9 (10-20); CALCIUM 7.9 mg/dl (8.5-10.1); CREATININE 0.6 mg/dl (0.60-1.40); MAGNESIUM 2.2 mg/dl (1.8-2.4); PHOSPHORUS 1.8 mg/dl (2.5-4.9); POTASSIUM 3.7 mmol/L (3.5-5.1)
[2016-10-26] MEDS ORDERED: HEPARIN IV BOLUS 5,000 UNIT in SYRINGE 0 ML IV SCH (07:00)
--- NOTE | 2016-10-26 07:13 | OPERATIVE REPORT ---
DATE OF OPERATION: 10/23/2016 PROCEDURE: Bronchoscopy. PREPROCEDURE DIAGNOSIS: Respiratory failure. POSTPROCEDURE DIAGNOSIS: Same. INDICATION: Acute desaturations and decreased breath sounds on the left side. PROCEDURE IN DETAIL: This was an urgent procedure and informed consent was implied. A timeout was performed before the patient was sedated with 10 mcg of propofol and 50 mcg of fentanyl. He was already on a fentanyl infusion. I passed the flexible bronchoscope to the endotracheal tube and immediately saw copious amounts of thick secretions on the inside of the ET tube. I was able to pass through that and down to the eli, which was anatomically normal. Being that he has pneumonia and an abnormal chest x-ray on the left, I concentrated on the left lung. I passed the scope into the left lower lobe and lavaged it several times. I also lavaged the lingula with approximately 40 mL of saline. No discrete mucus plugs were identified. I spent a significant amount of time trying to dislodge some of the thick, hard brown sputum from inside the endotracheal tube and I was able to successfully remove it. Lung sounds improved, as did his oxygen saturations and peak airway pressures. No sample were taken. The patient tolerated the procedure well. I attest to the content of the Intraoperative Record and any orders documented therein. Any exceptio ns are noted below.
[2016-10-26] MEDS: POLYETHYLENE (MIRALAX) 17 GM PACK PO SCH ×2 (07:49→20:43)
[2016-10-26] MEDS: SENNA 17.6 MG/10 ML UDP PO SCH (07:49)
[2016-10-26] MEDS: DOCUSATE SODIUM 100 MG/10 ML UDC PO SCH ×2 (07:49→20:44)
[2016-10-26] MEDS: PANTOprazole SOD 40 MG TAB PO SCH ×2 (07:51→20:45)
--- NOTE | 2016-10-26 08:29 | DIAGNOSTIC IMAGING REPORT ---
SINGLE VIEW CHEST CLINICAL HISTORY: Left lower lobe pneumonia. Extubation. FINDINGS: An AP, portable, upright chest radiograph is compared to study dated 10/25/2016 and correlated with chest CT dated 10/18/2016. The examination is degraded by portable technique and patient rotation. The endotracheal and enteric tubes have been removed. A right internal jugular central venous catheter is unchanged in position. A catheter fragment projects over the left subclavian vein. This is unchanged from 2011. The heart is enlarged and there is atherosclerotic calcification of the thoracic aorta. The pulmonary vasculature is mildly congested.. Enlargement of the central pulmonary arteries suggests pulmonary artery hypertension. Emphysema and chronic interstitial thickening are similar to previous. An accessory azygous fissure is incidentally noted. There is a layering left pleural effusion with left basilar consolidation, unchanged from yesterday. There are developing airspace opacities at the right lung base. No pneumothorax is seen. The skeletal structures are osteopenic. The bony thorax is grossly intact. IMPRESSION: 1. The endotracheal and enteric tubes have been removed. 2. Cardiomegaly and emphysema with mild pulmonary vascular congestion. 3. There is a layering left pleural effusion with left basilar consolidation, not significantly changed from yesterday. 4. There are developing airspace opacities at the right lung base. This could represent atelectasis and/or pneumonia. Clinical correlation will be required. Electronically signed by: Fidel Stevens M.D. 10/26/2016 8:28 AM Dictated Date/Time: 10/26/2016 8:26 AM
[2016-10-26] MEDS ORDERED: INSULIN GLARGINE SOLOSTAR 100 UNITS/ML 3 ML PEN SC SCH (09:00)
[2016-10-26] MEDS ORDERED: NURSING VERBAL MED ORDER ONE (09:00)
--- NOTE | 2016-10-26 09:13 | Family Medicine Progress Note ---
Progress Note Date of Service Oct 26, 2016. Subjective Pt evaluation today including: conversation w/ patient, physical exam, chart review, lab review Patient says that he is feeling generally well. Denies acute events overnight. His main complaint is lower leg pain, significantly worse on the left side. He is otherwise breathing comfortably with the oxygen support, with only occasional episodes of shortness of breath but these resolve in a few minutes. His biggest issue is pain in his left lower extremity. He mentions that the skin color change has become markedly more significant. Constitutional: No chills, No fever Respiratory: No dyspnea at rest Cardiovascular: + orthopnea, No chest pain, No palpitations Abdomen: No nausea, No pain Musculoskeletal: + muscle pain Skin: + color change, + new/changing skin lesions, No itch, No rash Medications Medications Administered Medications (Trade) Dose Ordered Sig/Malcolm Route Start Time Stop Time Status Last Admin Dose Admin Levothyroxine Sodium (Synthroid Tab) 225 mcg DAILYBB PO 10/18/16 08:30 11/17/16 08:29 10/26/16 05:56 225 MCG Loperamide HCl (Imodium Cap) 2 mg BID PO 10/18/16 09:00 10/20/16 21:00 DC 10/20/16 22:02 2 MG Loratadine (Claritin Tab) 10 mg DAILY PO 10/18/16 09:00 10/21/16 15:48 DC 10/20/16 10:34 10 MG Nortriptyline HCl (Pamelor Cap) 10 mg HS PO 10/18/16 21:00 11/17/16 20:59 10/26/16 20:44 10 MG Guaifenesin (Organidin Nr Tab) 400 mg TID PO 10/18/16 09:00 10/21/16 15:48 DC 10/20/16 22:01 400 MG Pantoprazole Sodium (Protonix Tab) 40 mg DAILY PO 10/18/16 09:00 10/21/16 12:29 DC 10/20/16 10:35 40 MG Acetaminophen (Tylenol Tab) 650 mg Q4H PRN PO 10/18/16 06:45 11/17/16 06:44 10/21/16 05:23 650 MG Ondansetron HCl (Zofran Inj) 4 mg Q6H PRN IV 10/18/16 06:45 11/17/16 06:44 10/20/16 08:00 4 MG Morphine Sulfate 2 mg 2 mg Q30M PRN IV 10/18/16 06:45 10/22/16 07:51 DC 10/20/16 02:48 2 MG Ampicillin Sodium/ Sulbactam Sodium 3000 mg/Sodium Chloride 108 ml @ 200 mls/hr Q6H IV 10/18/16 08:00 10/18/16 13:14 DC 10/18/16 08:29 200 MLS/HR Azithromycin/ Dextrose (Zithromax IV/D5 250ml) 255 ml @ 125 mls/hr DAILY@0900 IV 10/18/16 09:00 10/23/16 11:40 DC 10/23/16 08:43 125 MLS/HR Albuterol/ Ipratropium (Duoneb) 3 ml Q6R INH 10/18/16 09:00 10/22/16 00:13 DC 10/21/16 01:29 3 ML Albuterol Sulfate 2.5 mg 2.5 mg Q4H PRN INH 10/18/16 06:45 10/22/16 00:13 DC 10/18/16 11:22 2.5 MG Potassium Chloride/Dextrose/ Sod Cl 1,000 ml @ 75 mls/hr [id number] IV 10/18/16 08:00 10/18/16 21:19 DC 10/18/16 08:26 75 MLS/HR Sodium Chloride (Nss 250ml) 250 ml @ 999 mls/hr Q16M IV 10/18/16 10:00 10/18/16 10:36 DC 10/18/16 11:19 999 MLS/HR Enoxaparin Sodium 60 mg 60 mg Q12@1100,2300 SQ 10/18/16 11:00 10/19/16 19:03 DC 10/19/16 10:54 60 MG Ceftriaxone Sodium 1 gm/ Dextrose 50 ml @ 100 mls/hr DAILY@1400 IV 10/18/16 14:00 10/25/16 11:33 DC 10/24/16 14:18 100 MLS/HR Metronidazole/Prmx (Flagyl / Nss/ Premixed Nss) 100 ml @ 100 mls/hr Q6 IV 10/18/16 18:00 10/19/16 10:25 DC 10/19/16 06:53 100 MLS/HR Dornase Sy (Pulmozyme Inhalation Soln 2.5ml Amp) 2.5 ml BIDR INH 10/18/16 20:00 10/19/16 10:25 DC 10/19/16 07:27 2.5 ML Metoprolol Tartrate (Lopressor Tab) 25 mg TID PO 10/19/16 21:00 10/21/16 12:29 DC 10/20/16 22:01 25 MG Metoprolol Tartrate (Lopressor Iv) 5 mg STK-MED ONCE .ROUTE 10/19/16 15:44 10/19/16 15:48 DC 10/19/16 15:56 5 MG Diltiazem HCl 10 mg 10 mg TODAY@1800 IV 10/19/16 18:00 10/19/16 18:01 DC 10/19/16 18:25 10 MG Diltiazem HCl/ Dextrose (Cardizem Inj/D5 100ml) 125 ml @ 0 mls/hr Q0M PRN IV 10/19/16 18:00 10/22/16 08:46 DC 10/21/16 15:20 15 MLS/HR Enoxaparin Sodium (Lovenox Inj) 60 mg Q12 SQ 10/19/16 21:00 10/21/16 22:03 DC 10/21/16 20:45 60 MG Lidocaine HCl (Xylocaine 1% Inj (Local)) 3 ml ONE ONCE SQ 10/20/16 16:57 10/20/16 16:59 DC 10/20/16 16:57 3 ML Iodixanol (Visipaque 50ml) 4,050 mg ONE ONCE IV 10/20/16 16:57 10/20/16 16:59 DC 10/20/16 16:57 4,050 MG Heparin Sodium/ Sodium Chloride (Heparin Sod/Ns 2 Units/Ml) 20 unit ONE ONCE IV 10/20/16 16:57 10/20/16 16:59 DC 10/20/16 16:57 20 UNIT Cefazolin Sodium (Ancef Inj) 1,000 mg STK-MED ONCE .ROUTE 10/21/16 07:18 10/21/16 07:21 DC 10/21/16 09:45 1,000 MG Heparin Sodium (Porcine) 21125 unit 10,000 unit STK-MED ONCE .ROUTE 10/21/16 07:18 10/21/16 07:22 DC 10/21/16 09:45 5,000 UNIT Dextrose/Sodium Chloride (D5W And 1/2nss) 1,000 ml @ 100 mls/hr Q10H IV 10/21/16 10:45 10/21/16 20:44 DC 10/21/16 12:28 100 MLS/HR Iodixanol (Visipaque (Iodixanol) Inj 270MG/Ml) 11 ml ONE ONCE INSTIL 10/21/16 10:54 10/21/16 10:55 DC 10/21/16 09:40 11 ML Propofol (Diprivan Iv Emulsion 100ml Vial) 1 dose STK-MED ONCE IV 10/21/16 11:00 10/21/16 11:03 DC 10/21/16 12:28 1 DOSE Metoprolol Tartrate (Lopressor Iv) 5 mg STK-MED ONCE .ROUTE 10/21/16 12:04 10/21/16 12:08 DC 10/21/16 12:22 5 MG Diltiazem HCl (Cardizem Inj) 25 mg STK-MED ONCE .ROUTE 10/21/16 12:22 10/21/16 12:26 DC 10/21/16 12:49 10 MG Metoprolol Tartrate (Lopressor Tab) 50 mg TID PO 10/21/16 14:00 10/22/16 08:45 DC 10/21/16 20:43 50 MG Chlorhexidine Gluconate 15 ml 15 ml BID MT 10/21/16 21:00 10/25/16 15:52 DC 10/25/16 09:00 15 ML Norepinephrine Bitartrate 8 mg/ Dextrose 508 ml @ 0 mls/hr Q0M PRN IV 10/21/16 13:30 10/25/16 15:52 DC 10/24/16 13:18 17 MLS/HR Amiodarone HCL/ Dextrose 100 ml @ 600 mls/hr TODAY@1345 IV 10/21/16 13:45 10/21/16 13:54 DC 10/21/16 14:19 600 MLS/HR Amiodarone HCL/ Dextrose 200 ml @ 33.3 mls/hr Q6H1M IV 10/21/16 14:00 10/21/16 20:00 DC 10/21/16 14:29 33.3 MLS/HR Amiodarone HCL/ Dextrose (Nexterone / D5w) 200 ml @ 16.7 mls/hr [id number] IV 10/21/16 20:00 10/22/16 15:21 DC 10/22/16 05:32 16.7 MLS/HR Miscellaneous (Insulin Protocol Dka Goal Range) 1 ea ONE ONCE N/A 10/21/16 14:30 10/21/16 14:32 DC 10/21/16 14:30 1 EA Miscellaneous (Insulin Protocol Severe Stress) 1 ea ONE ONCE N/A 10/21/16 14:30 10/21/16 14:31 DC 10/21/16 16:26 1 EA Diltiazem HCl 25 mg 25 mg STK-MED ONCE .ROUTE 10/21/16 15:40 10/21/16 15:44 DC 10/21/16 15:47 10 MG Insulin Human Regular 2.5 unit/ Syringe 2.5 ml @ 1 mls/min TODAY@1615 IV 10/21/16 16:15 10/21/16 16:18 DC 10/21/16 16:25 1 MLS/MIN Insulin Human Regular 250 units/ Sodium Chloride 252.5 ml @ 0 mls/hr DAILY@1130 IV 10/21/16 16:15 10/25/16 16:51 DC 10/24/16 12:32 0.8 MLS/HR Fentanyl Citrate (Fentanyl Drip 1250MCG/250 Nss) 250 ml @ 0 mls/hr Q0M PRN IV 10/21/16 16:15 10/25/16 15:52 DC 10/25/16 05:22 20 MLS/HR Fentanyl Citrate (Fentanyl Inj) 50 mcg Q2H PRN IV 10/21/16 16:15 10/25/16 18:14 DC 10/25/16 03:06 50 MCG Propofol (Diprivan Iv Emulsion 100ml Vial) 1 dose UD PRN IV 10/21/16 18:15 10/23/16 08:28 DC 10/22/16 01:43 1 DOSE Propofol 1 dose 1 dose STK-MED ONCE IV 10/21/16 18:26 10/21/16 18:29 DC 10/21/16 18:32 1 DOSE Heparin Sodium (Porcine) 5000 unit/Syringe 5 ml @ 10 mls/min NOW STAT IV 10/21/16 23:35 10/21/16 23:36 DC 10/21/16 23:56 10 MLS/MIN Heparin Sodium/ Dextrose (Heparin 25,000 Unit/500ml D5W) 500 ml @ 30 mls/hr [id number] PRN IV 10/21/16 23:45 11/20/16 23:44 10/26/16 16:52 30 MLS/HR Albuterol (Ventolin Hfa Inhaler) 4 puffs Q6R INH 10/22/16 03:00 10/26/16 10:35 DC 10/25/16 15:08 4 PUFFS Ipratropium [place] (Atrovent Hfa Inhaler) 4 puffs Q6R INH 10/22/16 03:00 10/26/16 10:35 DC 10/25/16 15:08 4 PUFFS Docusate Sodium (coLACE SYRUP) 100 mg BID PO 10/22/16 09:00 11/21/16 08:59 10/26/16 20:44 100 MG Heparin Sodium (Porcine) (Heparin Sod 5000u/ml(Porcine)) 5,000 unit STK-MED ONCE .ROUTE 10/22/16 09:36 10/22/16 09:39 DC 10/22/16 13:00 5,000 UNIT Cefazolin Sodium 1000 mg 1,000 mg STK-MED ONCE .ROUTE 10/22/16 09:36 10/22/16 09:40 DC 10/22/16 13:00 1,000 MG Diltiazem HCl/ Dextrose (Cardizem Inj/D5 100ml) 125 ml @ 0 mls/hr Q0M PRN IV 10/22/16 13:30 10/23/16 11:32 DC 10/22/16 21:35 5 MLS/HR Iodixanol (Visipaque (Iodixanol) Inj 270MG/Ml) 150 ml ONE ONCE INSTIL 10/22/16 14:25 10/22/16 14:26 DC 10/22/16 13:00 150 ML Amiodarone HCL/ Dextrose (Nexterone / D5w) 360 mg STK-MED ONCE .ROUTE 10/22/16 15:26 10/22/16 15:29 DC 10/22/16 15:37 360 MG Amiodarone HCL/ Dextrose 150 mg 150 mg STK-MED ONCE .ROUTE 10/22/16 15:26 10/22/16 15:29 DC 10/22/16 15:36 150 MG Amiodarone HCL/ Dextrose 200 ml @ 33.3 mls/hr Q6H1M IV 10/22/16 15:55 10/22/16 22:00 DC 10/22/16 21:34 33.3 MLS/HR Amiodarone HCL/ Dextrose 200 ml @ 16.7 mls/hr [id number] IV 10/22/16 22:00 10/26/16 23:00 10/26/16 09:34 16.7 MLS/HR Pantoprazole Sodium 80 mg/ Dextrose 120 ml @ 480 mls/hr 1630 IV 10/22/16 16:30 10/22/16 16:44 DC 10/22/16 17:40 480 MLS/HR Pantoprazole Sodium/Dextrose (Protonix Inj/D5 100ml) 100 ml @ 20 mls/hr Q5H IV 10/22/16 16:45 10/24/16 13:17 DC 10/24/16 08:16 20 MLS/HR Albumin Human (Albumin 25%) 12.5 gm ONE STAT IV 10/22/16 16:21 10/22/16 16:30 DC 10/22/16 17:40 12.5 GM Diltiazem HCl 15 mg 15 mg NOW STAT IV 10/22/16 18:17 10/22/16 18:30 DC 10/22/16 18:53 15 MG Heparin Sodium (Porcine)/Syringe (Heparin Iv Bolus/Syringe) 3 ml @ 10 mls/min NOW STAT IV 10/22/16 22:49 10/22/16 22:50 DC 10/22/16 23:03 10 MLS/MIN Polyethylene 17 gm 17 gm BID PO 10/23/16 09:00 11/22/16 08:59 10/26/16 20:43 17 GM Methylprednisolone Sodium Succinate 40 mg/Syringe 0.64 ml @ 1.5 mls/min Q8H IV 10/23/16 12:00 10/24/16 04:01 DC 10/24/16 04:23 1.5 MLS/MIN Furosemide/Syringe (Lasix Inj/ Syringe) 2 ml @ 4 mls/min NOW ONCE IV 10/23/16 12:00 10/23/16 12:01 DC 10/23/16 12:03 4 MLS/MIN Diltiazem HCl 25 mg 25 mg STK-MED ONCE .ROUTE 10/23/16 18:03 10/23/16 18:08 DC 10/23/16 18:11 10 MG Diltiazem HCl/ Dextrose (Cardizem Inj/D5 100ml) 125 ml @ 0 mls/hr Q0M PRN IV 10/23/16 18:30 10/26/16 19:02 DC 10/26/16 00:44 5 MLS/HR Propofol (Diprivan Iv Emulsion 100ml Vial) 1 dose UD PRN IV 10/23/16 18:45 10/25/16 15:53 DC 10/24/16 02:48 1 DOSE Furosemide (Lasix Inj) 40 mg NOW STAT IV 10/23/16 19:08 10/23/16 19:12 DC 10/23/16 20:49 40 MG Diltiazem HCl (Cardizem Inj) 25 mg STK-MED ONCE .ROUTE 10/23/16 20:11 10/23/16 20:15 DC 10/23/16 20:12 25 MG Diltiazem HCl 25 mg 25 mg STK-MED ONCE .ROUTE 10/23/16 21:03 10/23/16 21:06 DC 10/23/16 21:16 15 MG Heparin Sodium (Porcine)/Syringe (Heparin Iv Bolus/Syringe) 3 ml @ 10 mls/min TODAY@0900 ONCE IV 10/24/16 09:00 10/24/16 09:01 DC 10/24/16 09:28 10 MLS/MIN Senna (Senokot Syrup) 17.6 mg QAM PO 10/25/16 09:00 11/24/16 08:59 10/26/16 07:49 17.6 MG Senna (Senokot Syrup) 17.6 mg ONE ONCE PO 10/24/16 12:30 10/24/16 12:40 DC 10/24/16 14:18 17.6 MG Bisacodyl (Dulcolax Supp) 10 mg NOW STAT SC 10/24/16 12:29 10/24/16 12:40 DC 10/24/16 14:18 10 MG Acetylcysteine 3 ml 3 ml Q6R INH 10/24/16 15:00 10/25/16 18:14 DC 10/25/16 15:08 3 ML Furosemide 40 mg/ Syringe 4 ml @ 4 mls/min TODAY@1345 ONCE IV 10/24/16 13:45 10/24/16 13:46 DC 10/24/16 14:18 4 MLS/MIN Pantoprazole Sodium/Syringe (Protonix Inj/ Syringe) 10 ml @ 5 mls/min BID@0900,2100 IV 10/24/16 21:00 10/25/16 18:14 DC 10/25/16 08:59 5 MLS/MIN Enteral Nutritional Formula 1000 ml 1,000 ml UD PO 10/24/16 14:00 10/25/16 15:53 DC 10/24/16 14:18 1,000 ML Furosemide 60 mg/ Syringe 6 ml @ 4 mls/min TODAY@0100 IV 10/25/16 01:00 10/25/16 01:05 DC 10/25/16 01:48 4 MLS/MIN Heparin Sodium (Porcine)/Syringe (Heparin Iv Bolus/Syringe) 5 ml @ 10 mls/min NOW STAT IV 10/25/16 05:53 10/25/16 05:54 DC 10/25/16 06:19 10 MLS/MIN Furosemide (Lasix Inj) 40 mg NOW STAT IV 10/25/16 11:33 10/25/16 11:38 DC 10/25/16 12:28 [address] [place] (Atrovent 0.02% 0.5MG/2.5ML Neb) 0.5 mg Q6R INH 10/25/16 21:00 11/24/16 20:59 10/26/16 19:53 0.5 MG Levalbuterol (Xopenex 1.25MG/ 0.5ML Neb) 1.25 mg Q6R INH 10/25/16 21:00 11/24/16 20:59 10/26/16 19:53 1.25 MG Insulin Glargine (Lantus Solostar Pen) 7 unit NOW ONCE SC 10/25/16 16:00 10/25/16 16:01 DC 10/25/16 16:41 7 UNIT Bisacodyl (Dulcolax Supp) 10 mg NOW STAT SC 10/25/16 17:55 10/25/16 18:08 DC 10/25/16 20:48 10 MG Fentanyl Citrate (Fentanyl Inj) 25 mcg Q2H PRN IV 10/25/16 18:15 11/08/16 18:14 10/26/16 20:44 25 MCG Pantoprazole Sodium (Protonix Tab) 40 mg BID PO 10/25/16 21:00 11/24/16 20:59 10/26/16 20:45 40 MG Potassium Chloride 40 meq 40 meq ONE ONCE PO 10/25/16 20:30 10/25/16 20:31 DC 10/25/16 20:48 40 MEQ Potassium Chloride 20 meq/ Prmx 100 ml @ 50 mls/hr Q2H IV 10/25/16 21:00 10/26/16 02:59 DC 10/26/16 00:44 50 MLS/HR Heparin Sodium (Porcine)/Syringe (Heparin Iv Bolus/Syringe) 5 ml @ 10 mls/min TODAY@0700 IV 10/26/16 07:00 10/26/16 08:00 DC 10/26/16 07:30 10 MLS/MIN Amiodarone HCl (Cordarone Tab) 400 mg BID PO 10/26/16 21:00 11/02/16 21:01 10/26/16 20:44 400 MG Amiodarone HCl (Cordarone Tab) 400 mg 0945 ONCE PO 10/26/16 09:45 10/26/16 09:53 DC 10/26/16 11:12 400 MG Metoprolol Tartrate (Lopressor Tab) 12.5 mg BID PO 10/26/16 21:00 11/25/16 20:59 10/26/16 20:44 12.5 MG Metoprolol Tartrate 12.5 mg 12.5 mg NOW ONCE PO 10/26/16 10:15 10/26/16 10:16 DC 10/26/16 11:12 12.5 MG Potassium Phosphate/Sodium Chloride (Potassium Phosphate Inj/Nss 250ml) 255 ml @ 88 mls/hr TODAY@1100 ONCE IV 10/26/16 11:00 10/26/16 13:53 DC 10/26/16 11:13 88 MLS/HR Potassium Chloride (Klor-Con Tab) 40 meq NOW ONCE PO 10/26/16 11:00 10/26/16 11:01 DC 10/26/16 11:13 40 MEQ Objective Vital Signs Date Time Temp Pulse Resp B/P Pulse Ox O2 Delivery O2 Flow Rate FiO2 10/26/16 06:00 80 15 100/50 94 12.0 50 10/26/16 05:30 82 17 104/54 90 12.0 50 10/26/16 05:00 81 13 103/55 94 12.0 50 10/26/16 04:30 86 14 112/58 93 12.0 50 10/26/16 04:00 36.6 86 15 104/52 93 12.0 50 10/26/16 04:00 Humidified Oxygen 12.0 50 Mask 10/26/16 03:30 82 15 104/53 92 12.0 50 10/26/16 03:00 80 14 108/53 93 12.0 50 10/26/16 02:30 80 17 110/55 91 12.0 50 10/26/16 02:19 82 16 92 Mask 12.0 50 10/26/16 02:00 79 13 99/54 95 12.0 50 10/26/16 01:30 74 9 90/50 91 12.0 50 10/26/16 01:00 78 12 96/48 93 12.0 50 10/26/16 00:30 87 23 101/55 10/26/16 00:01 Humidified Oxygen 12.0 50 Mask 10/26/16 00:00 36.4 78 13 104/53 97 Humidified Oxygen 12.0 50 Mask 10/25/16 23:30 78 13 104/54 96 Humidified Oxygen 12.0 50 Mask 10/25/16 23:00 75 13 103/53 98 Humidified Oxygen 12.0 50 Mask 10/25/16 22:30 76 10 87/52 97 Humidified Oxygen 12.0 50 Mask 10/25/16 22:01 88 20 105/61 84 10/25/16 22:01 88 20 105/61 84 Humidified Oxygen 12.0 50 Mask 10/25/16 21:30 78 13 108/51 92 Humidified Oxygen 12.0 50 Mask 10/25/16 21:00 87 30 107/51 83 Humidified Oxygen 12.0 50 Mask 10/25/16 20:30 73 13 98/52 99 Humidified Oxygen 12.0 50 Mask 10/25/16 20:18 75 16 96 Mask 12.0 50 10/25/16 20:00 36.4 74 15 97/50 97 Humidified Oxygen 12.0 50 Mask 10/25/16 20:00 Humidified Oxygen 12.0 50 Mask 10/25/16 19:30 74 14 94/48 97 Humidified Oxygen 12.0 50 Mask 10/25/16 19:13 74 13 96/48 96 Humidified Oxygen 12.0 50 Mask 10/25/16 18:25 79 16 100/50 96 Humidified Oxygen 13.0 Mask 10/25/16 16:00 Humidified Oxygen 13.0 Mask 10/25/16 16:00 83 12 102/40 95 Humidified Oxygen 13.0 Mask 10/25/16 14:08 80 8 120/48 98 Mechanical Ventilator 50 114/73 10/25/16 13:35 50 10/25/16 12:40 50 10/25/16 12:26 81 10 11/48 97 Mechanical Ventilator 50 107/72 10/25/16 12:00 Mechanical Ventilator 50 10/25/16 11:40 50 10/25/16 10:00 77 10 117/47 97 Mechanical Ventilator 50 98/56 Physical Exam General Appearance: WD/WN, no apparent distress Eyes: normal inspection ENT: hearing grossly normal Respiratory/Chest: chest non-tender, no respiratory distress, no accessory muscle use, + decreased breath sounds, + wheezing Cardiovascular: regular rate, rhythm, no murmur Abdomen: normal bowel sounds, non tender, soft Extremities: + calf tenderness Neurologic/Psychiatric: alert, normal mood/affect, oriented x 3 Skin: + mottled, + pallor, + pertinent finding (Significant color changes - pale limbs, green-yellow especially of the left foot along the sole and toes) Laboratory Results Results Past 24 Hours Test 10/25/16 09:21 10/25/16 12:03 10/25/16 13:34 10/25/16 16:31 Range/Units Bedside Glucose 172 168 125 70-99 mg/dl Activated Partial Thromboplast Time 77.2 21.0-31.0 SECONDS Partial Thromboplastin Ratio 3.0 Test 10/25/16 19:19 10/25/16 21:38 10/26/16 00:09 10/26/16 04:15 Range/Units Activated Partial Thromboplast Time 49.5 21.0-31.0 SECONDS Partial Thromboplastin Ratio 1.9 Sodium Level 134 136-145 mmol/L Potassium Level 2.9 3.5-5.1 mmol/L Chloride Level 92 98-107 mmol/L Carbon Dioxide Level 37 21-32 mmol/L Anion Gap 5.0 3-11 mmol/L Blood Urea Nitrogen 23 7-18 mg/dl Creatinine 0.88 0.60-1.40 mg/dl Est Creatinine Clear Calc Drug Dose 77.7 ml/min Estimated GFR () 102.3 Estimated GFR (Non- 88.3 BUN/Creatinine Ratio 25.8 10-20 Random Glucose 151 70-99 mg/dl Calcium Level 7.6 8.5-10.1 mg/dl Magnesium Level 2.1 1.8-2.4 mg/dl Bedside Glucose 132 121 110 70-99 mg/dl Test 10/26/16 05:53 10/26/16 06:23 Range/Units White Blood Count 16.17 4.8-10.8 K/uL Red Blood Count 2.60 4.7-6.1 M/uL Hemoglobin 7.5 14.0-18.0 g/dL Hematocrit 22.5 42-52 % Mean Corpuscular Volume 86.5 80-100 fL Mean Corpuscular Hemoglobin 28.8 25-34 pg Mean Corpuscular Hemoglobin Concent 33.3 32-36 g/dl Platelet Count 218 130-400 K/uL Mean Platelet Volume 9.5 7.4-10.4 fL Neutrophils (%) (Auto) 81.5 % Lymphocytes (%) (Auto) 5.0 % Monocytes (%) (Auto) 10.4 % Eosinophils (%) (Auto) 0.1 % Basophils (%) (Auto) 0.2 % Neutrophils # (Auto) 13.18 1.4-6.5 K/uL Lymphocytes # (Auto) 0.81 1.2-3.4 K/uL Monocytes # (Auto) 1.68 0.11-0.59 K/uL Eosinophils # (Auto) 0.01 0-0.5 K/uL Basophils # (Auto) 0.03 0-0.2 K/uL RDW Standard Deviation 50.3 36.4-46.3 fL RDW Coefficient of Variation 16.1 11.5-14.5 % Immature Granulocyte % (Auto) 2.8 % Immature Granulocyte # (Auto) 0.46 0.00-0.02 K/uL Nucleated RBC Absolute Count (auto) 0.05 0-0 K/uL Nucleated Red Blood Cells % 0.3 % Polychromasia 1+ Activated Partial Thromboplast Time 39.1 21.0-31.0 SECONDS Partial Thromboplastin Ratio 1.5 Sodium Level 137 136-145 mmol/L Potassium Level 3.7 3.5-5.1 mmol/L Chloride Level 97 98-107 mmol/L Carbon Dioxide Level 36 21-32 mmol/L Anion Gap 4.0 3-11 mmol/L Blood Urea Nitrogen 15 7-18 mg/dl Creatinine 0.60 0.60-1.40 mg/dl Est Creatinine Clear Calc Drug Dose 114.0 ml/min Estimated GFR () 119.7 Estimated GFR (Non- 103.3 BUN/Creatinine Ratio 24.9 10-20 Random Glucose 87 70-99 mg/dl Calcium Level 7.9 8.5-10.1 mg/dl Phosphorus Level 1.8 2.5-4.9 mg/dl Magnesium Level 2.2 1.8-2.4 mg/dl Bedside Glucose 96 70-99 mg/dl Assessment and Plan 70 year old male prisoner with h/o of smoking, permanent a.flutter on warfarin, COPD, p/w SOB, cough, hemoptysis found to have multiple PE's on CTA, LLL consolidation in addition to acute occlusion of the left popliteal artery s/p embolectomy x2 with BKA scheduled Acute Hypoxic Resp failure - Desaturation suspected to be due to mucus plugs LLL s/p bronchoscopy (10/23, 10/25), with suction. Bronchial washings, no growth to date, MRSA swab negative - Continue oxygen support via CPAP to maintain sats > 92% Left Lower Extremity Artery Occlusion - Left leg is pulseless and cold below the left knee, with evidence of ischemia in the foot. Repeat surgical revascularization of the left leg was unsuccessful - Left BKA scheduled for 10/28/16 Pulmonary Embolism - IVC filter in place due to failure of outpatient anticoagulation on Coumadin. DVT in the left lower extremity (popliteal and peroneal veins). - Continue Heparin drip for anticoagulation. - Monitor H/H Hypercoagulable State suspicious for Malignancy - DVT / PE despite supratherapeutic INR. CTA revealed prominent mediastinal and hilar nodes - upon Dr. Casillas's review there might have been adenopathy extended two years prior on previous imagining, LLL consolidation is a new finding. s/p repeat embolectomy of LLE LLL Consolidation - PE vs aspiration pneumonia vs malignancy. CXR not significantly changed from previous. Blood cultures are negative. - Discontinue Ceftriaxone - Continue Flutter valve, chest physiotherapy and incentive spirometry Acute on Chronic Afib/Flutter restarting on 10/21/16 - Last ECHO in Jul 2016 showed Normal EF and mitral valve calcification - Continue metoprolol 12.5mg BID for rate control, and Heparin for anticoagulation - Amiodarone changed to PO 400mg x 1 week, then 200mg thereafter, as per cardiology Hypotension -BP stable. Levophed d/c'd T2DM - glycemic consult Hypothyroid - TSH and T4 normal in Sep. - Continue Synthroid 225mcg DVT/GI Prophylaxis - Continue Heparin drip, Pantoprazole PO 40mg Continued [facility] stay due to: inadequate oral pain control, multiple IV medications needed Discharge planning: other History Resident Physician Supervision Note: I was present with Dr. Velazquez during the history and exam. I discussed the case with the resident and agree with the findings and plan as documented in the note. Any exceptions or clarifications are listed here. Pt seen and examined at bedside. At present, reports controlled/stable aching pain of the LLE which exacerbates with any use or direct palpation which is generally stable from previous. Reports no CP, SOB, lightheadedness, vision/ hearing changes, n/v/d General Appearance: mild distress, thin Respiratory: chest non-tender, no respiratory distress, decreased breath sounds (b/l bases R>L), wheezing (scattered) Cardiovascular: normal peripheral pulses, regular rate, rhythm, no murmur Extremities: other (coolness, mottling and signficiant discoloration and pain of the LLE) Assessment/Plan 70 y/o male h/o AFib, PE/DVT presents w/ LLE ischemia s/p embolectomy - Dr. Fry on board and recommendations appreciated - amputation planned for 3.29 Afib w/ RVR - continue amiodarone, metoprolol PE and LLE DVT s/p IVC filter 3.21 while on coumadin - continue heparin Hyperglycemia - ISS Hypothyroidism - continue synthroid h/o COPD w/ recent PNA s/p tx - continue duonebs, Anemia in the setting of GIB - Hgb stable Constipation- miralax PRN h/o SCC of the rectum s/p chemo/rad Resident Tracking Resident Involvement: Resident Care Provided Care Provided: Adult Hospital Medicine
[2016-10-26] MEDS: AMIODARONE / D5W 200 ML IV SCH ×2 (09:34→23:14)
[2016-10-26] MEDS ORDERED: AMIODARONE 200 MG TAB PO ONE (09:45)
--- NOTE | 2016-10-26 10:05 | Medical Consult ---
Consultation Note Date of Service Oct 26, 2016. Consultation Note DANIELLE BIRD scheduled for WEDNESDAY, 10/28. Pt aware and agreeable.
[2016-10-26] MEDS ORDERED: METOPROLOL TARTRATE 25 MG TAB PO ONE (10:15)
--- NOTE | 2016-10-26 10:33 | CARDIOLOGY PROGRESS NOTE ---
DATE: 10/26/2016 TIME: 9:48 a.m. SUBJECTIVE: Mr. Crook denies chest pain. He states that his breathing has improved. He has been intermittently short of breath but does not notice any orthopnea. His biggest issue is pain in his left lower extremity. Over the weekend, he did have some atrial arrhythmia on telemetry, which appears to be paroxysmal atrial fibrillation. For that reason, diltiazem drip was used and it was restarted for rate control. He is currently in sinus rhythm on telemetry. OBJECTIVE: VITAL SIGNS: Temperature 36.7 degrees, heart rate 88 beats per minute, respiration rate 15, blood pressure 113/61 mmHg, oxygen saturation is 96% on a mask. I's and O's, negative 1.9 liters yesterday. Weight is 71.8 kg. GENERAL: In no acute distress. He is alert. NECK: No appreciable JVD. CARDIAC: No ventricular heave. Regular, normal S1, S2, 1/6 systolic murmur. No rubs or gallops. LUNGS: Decreased breath sounds throughout, but otherwise appear to be clear. ABDOMEN: Soft, nontender, nondistended. Normoactive bowel sounds. EXTREMITIES: Tender lower extremities, left worse than right. No edema. Cyanosis left foot. PSYCHIATRIC: Affect appears appropriate. MEDICATIONS: Include diltiazem drip at 5 mg per hour, amiodarone drip per protocol, heparin drip per protocol, Synthroid 225 mcg p.o. daily, Protonix 40 mg p.o. b.i.d. LABORATORY DATA: White blood cell count 16.17, hemoglobin 7.5 down from 8.3, platelets 218. Sodium 137, potassium 3.7, BUN 15, creatinine 0.6, magnesium 2.2. PTT 39.1. Telemetry personally reviewed. Currently in sinus rhythm. No ventricular arrhythmia. ECG from this morning personally reviewed, demonstrating sinus rhythm at 86 beats per minute. Possible right ventricular hypertrophy. Echocardiogram from 10/23/2016, report reviewed. Hyperdynamic LV systolic function. EF 65-70%. Severely dilated right ventricle with reduced systolic function. 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 Compared to 07/28/2016 study, right ventricle appears dilated. ASSESSMENT AND PLAN: 1. Paroxysmal atrial flutter with rapid ventricular response: Doing much better on amiodarone. We will start amiodarone oral medication with a total of 400 mg p.o. b.i.d. for 8 more days. Can overlap amiodarone drip today and discontinue around midnight tonight. Continue anticoagulation for stroke risk reduction. Diltiazem drip can be discontinued. We will start beta demetra therapy for rate control if he should have further episodes. This can be given orally. 2. Hypercoagulable state: On heparin as he had pulmonary embolism while supratherapeutic INR and also arterial emboli, on Lovenox. Hematology/oncology following. Concern for malignancy in the lung noted on CT scan. 3. Hypertension: This has improved. He is no longer on pressor support. 4. Right ventricular strain/dilation: Possibly secondary to pulmonary emboli. 5. Disposition: Cardiology will continue to follow. Dr. Guzman, who had followed him in the past, will resume his care tomorrow.
[2016-10-26] MEDS ORDERED: POTASSIUM PHOSPHATE INJ 15 MMOL in SODIUM CHLORIDE 0.9% 250ML 250 ML IV ONE (11:00)
[2016-10-26] MEDS ORDERED: POTASSIUM CHLORIDE 20 MEQ TABCR PO ONE (11:00)
[2016-10-26 14:58] LABS: PARTIAL THROMBOPLASTIN RATIO 2.3
--- NOTE | 2016-10-26 15:17 | Pharmacy Progress Note ---
Glycemic Control: Progress Nt Date of Service Oct 26, 2016. Scope Glycemic Pharmacist consulted by Dr Coleman on 10/22/16 for glycemic control and to write orders per formerly [facility] inpatient glycemic control protocol. Objective Accuchecks BSG (last 24hrs): Test 10/25/16 16:31 10/25/16 19:19 10/25/16 21:38 10/26/16 00:09 Bedside Glucose 125 mg/dl (70-99) 132 mg/dl (70-99) 121 mg/dl (70-99) Random Glucose 151 mg/dl (70-99) Test 10/26/16 04:15 10/26/16 05:53 10/26/16 06:23 10/26/16 11:33 Bedside Glucose 110 mg/dl (70-99) 96 mg/dl (70-99) 133 mg/dl (70-99) Random Glucose 87 mg/dl (70-99) Laboratory Data (last 24hrs) Test 10/25/16 19:19 10/26/16 05:53 Anion Gap 5.0 mmol/L 4.0 mmol/L BUN/Creatinine Ratio 25.8 24.9 Blood Urea Nitrogen 23 mg/dl 15 mg/dl Creatinine 0.88 mg/dl 0.60 mg/dl Potassium Level 2.9 mmol/L 3.7 mmol/L Sodium Level 134 mmol/L 137 mmol/L White Blood Count 16.17 K/uL Red Blood Count 2.60 M/uL Hemoglobin 7.5 g/dL Hematocrit 22.5 % Mean Corpuscular Volume 86.5 fL Mean Corpuscular Hemoglobin 28.8 pg Mean Corpuscular Hemoglobin Concent 33.3 g/dl Platelet Count 218 K/uL Mean Platelet Volume 9.5 fL Neutrophils (%) (Auto) 81.5 % Lymphocytes (%) (Auto) 5.0 % Monocytes (%) (Auto) 10.4 % Eosinophils (%) (Auto) 0.1 % Basophils (%) (Auto) 0.2 % Neutrophils # (Auto) 13.18 K/uL Lymphocytes # (Auto) 0.81 K/uL Monocytes # (Auto) 1.68 K/uL Eosinophils # (Auto) 0.01 K/uL Basophils # (Auto) 0.03 K/uL HbA1c: Test 10/22/16 05:38 Hemoglobin A1c 6.1 % (4.5-5.6) H Recent Pertinent Medications Outpatient Anti-diabetic Regimen: * no out-pt medications for DM * A1c = 6.1 % 10/22/16 The patient is currently receiving: * Basal insulin: Lantus 7 units every 12 hours; hold if BSG less than 120 * Correctional Insulin: Novolog Correction per scale ACHS Goal Range: Low 140 mg/dL - High 180 mg/dL Correction Factor: 35 mg/dL/unit * Prandial insulin: Per carb ratio of 1 unit per 15 grams CHO consumed * Oral Agents: none currently Risk Factors for Insulin Resistance: * IVF: Amiodarone and Heparin drips mixed in D5W * Recent Surgery: s/p lower extremity embolectomies * Diet: T2DM / clears has been ordered. * Mechanical Ventilation: extubated yesterday, remains on mask FiO2 60% Assessment & Plan ASSESSMENT: 10/26/16 * Glycemic control remains quite good since transitioning off the insulin drip yesterday * Fasting BSG 87-96 this AM w/ only 7 units of Lantus on board * May need to lessen or hold the basal insulin dose. He was likely requiring more insulin in the form of an insulin drip secondary to IV steroids which are no longer being given. A1c is 6.1%. He may require no basal insulin while PO intake is poor. Will hold basal insulin at this time and follow fasting trend. * The current CF and CR are reasonable starting points PLAN FOR INPATIENT GLYCEMIC CONTROL: * Stopping the Lantus at this time; reevaluate need tomorrow * Continuing correction factor of 35 mg/dl/unit * Continuing carb ratio of 1 unit per 15 grams CHO consumed * Continuing goal range of Low 140 mg/dL - High 180 mg/dL RECOMMENDATIONS FOR DISCHARGE: * * Please note that the plan above was derived based on current level of insulin resistance and hospital stress. These recommendations are appropriate for inpatient admission only. Plan of care upon discharge will need to be reassessed to avoid potential outpatient hypo/hyperglycemia. Thank you.
[2016-10-26] MEDS: HEPARIN 25,000 UNIT/500ML D5W 500 ML IV PRN (16:52)
[2016-10-26] MEDS: NORTRIPTYLINE HCL 10 MG CAP PO SCH (20:44)
[2016-10-26] MEDS: AMIODARONE 200 MG TAB PO SCH (20:44)
[2016-10-26] MEDS: METOPROLOL TARTRATE 25 MG TAB PO SCH (20:44)
[2016-10-26] MEDS ORDERED: [UNRECOGNIZED DRUG - REMARK] ONE (23:00)
--- NOTE | 2016-10-26 23:07 | Critical Care Progress Note ---
Critical Care Progress Note Date of Service Oct 26, 2016. ICU Day ICU Day Number: [address] Nesbitt Subjective Occasional pain, mild shortness of breath with exertion Objective General: Alert and oriented following commands. Heart: Regular rate and rhythm no murmurs rubs gallops Abdomen nontender Extremities: Cool mottled left foot. Assessment & Plan IMPRESSION: 1. Acute hypoxemic respiratory failure; he presented to the ICU after his first an embolectomy. He was being treated for pneumonia since admission. 2. Left lower lobe pneumonia, this may be post-obstructive. We have no organism. At some point he will need a bronchoscopy with brushings or biopsies of that left lower lobe. Based on CT scan and bronchoscopy he is suspicious for malignancy. 3. Postoperative day #3 and #4 status post embolectomy of the left lower extremity. He remains on heparin infusion and the foot continues to mottle. Dr. Fry is planning an amputation later in the week. 4. Atrial fibrillation with rapid ventricular response, on amiodarone infusion as well as a small amount of Cardizem. Consider changing the IV amiodarone to p.o. 5. 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 6. Hyperglycemia without history of diabetes, transitioned from insulin infusion to subcutaneous insulin today. 7. Hypercoagulable state, he was diagnosed with pulmonary embolism and deep venous thrombosis while therapeutic on Coumadin. He was placed on Lovenox and was changed to heparin infusion between his first and second embolectomy. 8. 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 9. History of chronic obstructive pulmonary disease, status post 3 doses of Solu-Medrol 40 mg IV q. 8 hours. 10. Gastrointestinal bleed, resolved clinically. 11. Anemia, multifactorial. Status post 1 unit packed red blood cells. 12. Constipation. 13. Hyponatremia, improving. 14. Leukocytosis; which may be exacerbated by his lower extremity ischemia and pulse dose steroids. PLAN: NEUROLOGIC: Avoid narcotics if at all possible secondary to his constipation. Continue Pamelor. PULMONARY: He was extubated yesterday. Encourage incentive spirometry. Continue bronchodilators. Placed on high flow nasal cannula, male will continue to downgraded as tolerated CARDIOVASCULAR: Continue amiodarone at Cardizem infusions as well as heparin for now. GASTROINTESTINAL: Begin clear liquid diet and advance to carbohydrate controlled as tolerated. Change b.i.d. Protonix IV to p.o. RENAL: Diuresis with Lasix and replete electrolytes. Strive for negative fluid balance. HEME: Follow H\T\H. INFECTIOUS DISEASE: Finished antibiotics Critical care time 0: Level III billing Consults & Procedures Consultants: Cardiology Oncology Critical care Pulmonary Vascular surgery Glycemic control service Procedures: Reviewed procedure tab of documentation Data Medications: Current Inpatient Medications Medications (Trade) Dose Ordered Sig/Malcolm Route Start Time Stop Time Status Last Admin Dose Admin Levothyroxine Sodium (Synthroid Tab) 225 mcg DAILYBB PO 10/18/16 08:30 11/17/16 08:29 10/26/16 05:56 225 MCG Nortriptyline HCl (Pamelor Cap) 10 mg HS PO 10/18/16 21:00 11/17/16 20:59 10/26/16 20:44 10 MG Miscellaneous Information (Order Awaiting Action) 1 ea QS N/A 10/18/16 08:00 11/17/16 07:59 Acetaminophen (Tylenol Tab) 650 mg Q4H PRN PO 10/18/16 06:45 11/17/16 06:44 10/21/16 05:23 650 MG Ondansetron HCl (Zofran Inj) 4 mg Q6H PRN IV 10/18/16 06:45 11/17/16 06:44 10/20/16 08:00 4 MG Glucose (Glucose 40% Gel) 15-30 GRAMS 15 GRAMS... UD PRN PO 10/21/16 14:45 11/20/16 14:44 Glucose (Glucose Chew Tab) 4-8 Tablets 4 Tabl... UD PRN PO 10/21/16 14:45 11/20/16 14:44 Dextrose (Dextrose 50% 50ML Syringe) 25-50ML OF 50% DW IV FOR... UD PRN IV 10/21/16 14:45 11/20/16 14:44 Glucagon 1 mg 1 mg UD PRN SQ 10/21/16 14:45 11/20/16 14:44 Heparin Sodium/ Dextrose (Heparin 25,000 Unit/500ml D5W) 500 ml @ 30 mls/hr [id number] PRN IV 10/21/16 23:45 11/20/16 23:44 10/26/16 16:52 30 MLS/HR Docusate Sodium (coLACE SYRUP) 100 mg BID PO 10/22/16 09:00 11/21/16 08:59 10/26/16 20:44 100 MG Miscellaneous Information (Consult Glycemic Management Pharmacy) 1 ea UD PRN N/A 10/22/16 09:45 11/21/16 09:44 Heparin Sodium (Porcine) (Heparin 10 Unit/ ml 5 ml Flush) 5 ml PRN PRN FLUSH 10/23/16 00:15 11/22/16 00:14 Polyethylene (Miralax Powder Packet) 17 gm BID PO 10/23/16 09:00 11/22/16 08:59 10/26/16 20:43 17 GM Senna (Senokot Syrup) 17.6 mg QAM PO 10/25/16 09:00 11/24/16 08:59 10/26/16 07:49 17.6 MG Ipratropium [place] (Atrovent 0.02% 0.5MG/2.5ML Neb) 0.5 mg Q6R INH 10/25/16 21:00 11/24/16 20:59 10/26/16 19:53 0.5 MG Levalbuterol (Xopenex 1.25MG/ 0.5ML Neb) 1.25 mg Q6R INH 10/25/16 21:00 11/24/16 20:59 10/26/16 19:53 1.25 MG Insulin Aspart (novoLOG ASPART) SLIDING SCALE ACHS SC 10/25/16 16:00 11/24/16 15:59 Bisacodyl (Dulcolax Supp) 10 mg DAILY PRN CO 10/25/16 18:00 11/24/16 17:59 Fentanyl Citrate (Fentanyl Inj) 25 mcg Q2H PRN IV 10/25/16 18:15 11/08/16 18:14 10/26/16 20:44 25 MCG Pantoprazole Sodium (Protonix Tab) 40 mg BID PO 10/25/16 21:00 11/24/16 20:59 10/26/16 20:45 40 MG Amiodarone HCl (Cordarone Tab) 400 mg BID PO 10/26/16 21:00 11/02/16 21:01 10/26/16 20:44 400 MG Metoprolol Tartrate (Lopressor Tab) 12.5 mg BID PO 10/26/16 21:00 11/25/16 20:59 10/26/16 20:44 12.5 MG Amiodarone HCl (Cordarone Tab) 200 mg BID PO 11/03/16 09:00 12/03/16 08:59 I & O: 24-Hour Column 10/26/16 08:00 Intake Total 2657 ml Output Total 4525 ml Balance -1868 ml Vital Signs: Date Time Temp Pulse Resp B/P Pulse Ox O2 Delivery O2 Flow Rate FiO2 10/26/16 19:53 80 18 98 Nasal Cannula 55 10/26/16 15:30 High Flow Oxygen 60 Humidified Oxygen Mask 10/26/16 14:30 77 21 114/56 97 10/26/16 14:15 84 16 94 Nasal Cannula 60 10/26/16 14:00 74 21 113/64 96 High Flow Oxygen 40.0 60 10/26/16 13:30 74 24 103/59 97 10/26/16 13:00 74 15 116/63 96 10/26/16 12:30 73 13 104/58 97 10/26/16 12:00 78 21 123/61 98 10/26/16 11:30 High Flow Oxygen 60 Humidified Oxygen Mask 10/26/16 11:30 36.7 85 18 120/62 98 High Flow Oxygen 40.0 60 10/26/16 11:00 85 18 109/60 92 10/26/16 10:30 84 15 111/59 94 10/26/16 10:00 87 24 104/47 88 10/26/16 09:30 88 15 113/61 96 60 10/26/16 09:00 87 26 115/56 98 10/26/16 08:30 84 25 100/61 96 10/26/16 08:30 84 16 94 Mask 12.0 60 10/26/16 08:01 84 19 86/52 93 10/26/16 08:00 82 14 93 10/26/16 07:30 36.7 87 23 121/50 93 12.0 70 10/26/16 07:30 Humidified Oxygen 12.0 70 Mask 10/26/16 07:00 83 14 101/53 95 10/26/16 06:00 80 15 100/50 94 12.0 50 10/26/16 05:30 82 17 104/54 90 12.0 50 10/26/16 05:00 81 13 103/55 94 12.0 50 10/26/16 04:30 86 14 112/58 93 12.0 50 10/26/16 04:00 36.6 86 15 104/52 93 12.0 50 10/26/16 04:00 Humidified Oxygen 12.0 50 Mask 10/26/16 03:30 82 15 104/53 92 12.0 50 10/26/16 03:00 80 14 108/53 93 12.0 50 10/26/16 02:30 80 17 110/55 91 12.0 50 10/26/16 02:19 82 16 92 Mask 12.0 50 10/26/16 02:00 79 13 99/54 95 12.0 50 10/26/16 01:30 74 9 90/50 91 12.0 50 10/26/16 01:00 78 12 96/48 93 12.0 50 10/26/16 00:30 87 23 101/55 10/26/16 00:01 Humidified Oxygen 12.0 50 Mask 10/26/16 00:00 36.4 78 13 104/53 97 Humidified Oxygen 12.0 50 Mask 10/25/16 23:30 78 13 104/54 96 Humidified Oxygen 12.0 50 Mask Laboratory Results: Last 24 Hours Test 10/26/16 00:09 10/26/16 04:15 10/26/16 05:53 10/26/16 06:23 Bedside Glucose 121 mg/dl 110 mg/dl 96 mg/dl White Blood Count 16.17 K/uL Red Blood Count 2.60 M/uL Hemoglobin 7.5 g/dL Hematocrit 22.5 % Mean Corpuscular Volume 86.5 fL Mean Corpuscular Hemoglobin 28.8 pg Mean Corpuscular Hemoglobin Concent 33.3 g/dl Platelet Count 218 K/uL Mean Platelet Volume 9.5 fL Neutrophils (%) (Auto) 81.5 % Lymphocytes (%) (Auto) 5.0 % Monocytes (%) (Auto) 10.4 % Eosinophils (%) (Auto) 0.1 % Basophils (%) (Auto) 0.2 % Neutrophils # (Auto) 13.18 K/uL Lymphocytes # (Auto) 0.81 K/uL Monocytes # (Auto) 1.68 K/uL Eosinophils # (Auto) 0.01 K/uL Basophils # (Auto) 0.03 K/uL RDW Standard Deviation 50.3 fL RDW Coefficient of Variation 16.1 % Immature Granulocyte % (Auto) 2.8 % Immature Granulocyte # (Auto) 0.46 K/uL Nucleated RBC Absolute Count (auto) 0.05 K/uL Nucleated Red Blood Cells % 0.3 % Polychromasia 1+ Activated Partial Thromboplast Time 39.1 SECONDS Partial Thromboplastin Ratio 1.5 Sodium Level 137 mmol/L Potassium Level 3.7 mmol/L Chloride Level 97 mmol/L Carbon Dioxide Level 36 mmol/L Anion Gap 4.0 mmol/L Blood Urea Nitrogen 15 mg/dl Creatinine 0.60 mg/dl Est Creatinine Clear Calc Drug Dose 114.0 ml/min Estimated GFR () 119.7 Estimated GFR (Non- 103.3 BUN/Creatinine Ratio 24.9 Random Glucose 87 mg/dl Calcium Level 7.9 mg/dl Phosphorus Level 1.8 mg/dl Magnesium Level 2.2 mg/dl Test 10/26/16 11:33 10/26/16 13:55 10/26/16 15:18 10/26/16 16:52 Bedside Glucose 133 mg/dl 112 mg/dl Activated Partial Thromboplast Time 60.1 SECONDS Partial Thromboplastin Ratio 2.3 Stool Occult Blood POSITIVE Test 10/26/16 20:35 Bedside Glucose 140 mg/dl
[2016-10-27] VITALS (53 sets, daily range): BP systolic 89–125; BP diastolic 52–70; PULSE 73–91; TEMP 36.7–36.9; O2SAT 92–100
[2016-10-27] MEDS: FENTANYL CITRATE INJ 50 MCG/1 ML 2 ML VIAL IV PRN ×3 (00:18→09:55)
[2016-10-27 00:44] LABS: BUN/CREATININE RATIO 20.6 (10-20); CREATININE 0.53 mg/dl (0.60-1.40); MAGNESIUM 2.3 mg/dl (1.8-2.4); PHOSPHORUS 2.8 mg/dl (2.5-4.9); POTASSIUM 3.9 mmol/L (3.5-5.1)
[2016-10-27] MEDS: LEVALBUTEROL 1.25MG/0.5ML NEB INH SCH ×4 (01:55→20:30)
[2016-10-27] MEDS: IPRATROPIUM BROMIDE NEB SOLN 0.02% 2.5 ML VIAL INH SCH ×4 (01:55→20:30)
[2016-10-27] MEDS: LEVOTHYROXINE 75 MCG TAB PO SCH (05:35)
[2016-10-27 06:01] LABS: BASO % 0.1 %; BASO ABS # 0.02 K/uL (0-0.2); EOS % 0.1 %; IG% 2.6 %; LYMPH % 3.3 %; LYMPH ABS # 0.62 K/uL (1.2-3.4); MEAN CELL VOLUME 88.4 fL (80-100); MEAN CORPUSCULAR HEMOGLOBIN 28.6 pg (25-34); MEAN CORPUSCULAR HGB CONC 32.3 g/dl (32-36); MEAN PLATELET VOLUME 9.5 fL (7.4-10.4); MONO % 8.2 %; NEUT % 85.7 %; PLATELET COUNT 252 K/uL (130-400); RED BLOOD COUNT 2.94 M/uL (4.7-6.1); WHITE BLOOD COUNT 18.52 K/uL (4.8-10.8)
[2016-10-27 06:30] LABS: BUN/CREATININE RATIO 19.6 (10-20); CREATININE 0.54 mg/dl (0.60-1.40); MAGNESIUM 2.3 mg/dl (1.8-2.4); POTASSIUM 3.7 mmol/L (3.5-5.1)
[2016-10-27 06:32] LABS: PHOSPHORUS 2.6 mg/dl (2.5-4.9)
[2016-10-27 06:45] LABS: PARTIAL THROMBOPLASTIN RATIO 2.1
[2016-10-27] MEDS: INSULIN ASPART 100 UNITS/ML 3 ML PEN SC SCH ×4 (06:45→22:00)
[2016-10-27] MEDS: DOCUSATE SODIUM 100 MG/10 ML UDC PO SCH ×2 (07:35→19:52)
[2016-10-27] MEDS: METOPROLOL TARTRATE 25 MG TAB PO SCH ×2 (07:36→20:50)
[2016-10-27] MEDS: POLYETHYLENE (MIRALAX) 17 GM PACK PO SCH ×3 (07:36→19:53)
[2016-10-27] MEDS: SENNA 17.6 MG/10 ML UDP PO SCH ×2 (07:36→08:00)
[2016-10-27] MEDS: PANTOprazole SOD 40 MG TAB PO SCH ×2 (07:36→20:50)
[2016-10-27] MEDS: AMIODARONE 200 MG TAB PO SCH ×2 (07:37→20:51)
[2016-10-27 07:47] LABS: COMPLETE YES; POLYCHROMASIA 1+
--- NOTE | 2016-10-27 07:48 | Family Medicine Progress Note ---
Progress Note Date of Service Oct 27, 2016. Subjective Pt evaluation today including: conversation w/ patient, physical exam, chart review, lab review Patient has ongoing hemoptysis with coughing, but is otherwise feeling that he is breathing comfortably with oxygen support. He denies chest pain and abdominal pain, although he does describe intermittent episodes of alternating constipation and diarrhea. Medication seems to help with these symptoms. His largest complaint remains lower extremity pain, significantly worse on the left side. POLST documentation discussed with patient in detail and patient describes desire for full resuscitation, provided the efforts are not futile and there is potential to maintain some aspect of quality of life on recovery. Constitutional: No fever Respiratory: + cough, + hemoptysis, + sputum, No shortness of breath Cardiovascular: No chest pain, No edema, No palpitations Abdomen: + constipation, + diarrhea, No nausea, No pain, No vomiting Musculoskeletal: + calf pain, + joint pain, No swelling Male : No dysuria, No hematuria Skin: + color change Objective Vital Signs Date Time Temp Pulse Resp B/P Pulse Ox O2 Delivery O2 Flow Rate FiO2 10/27/16 06:00 87 29 113/68 99 10/27/16 05:01 87 22 115/60 99 10/27/16 04:04 36.8 10/27/16 04:03 100 Nasal Cannula 80 10/27/16 04:00 86 30 125/69 92 10/27/16 03:01 87 28 108/66 92 10/27/16 02:30 82 19 100 10/27/16 02:21 91 21 120/67 93 10/27/16 02:00 90 25 94 10/27/16 01:56 84 18 99 Nasal Cannula 30.0 50 10/27/16 01:00 81 16 109/62 98 10/27/16 00:30 80 17 98 10/27/16 00:01 36.8 10/27/16 00:00 80 34 120/70 99 10/26/16 23:59 98 Nasal Cannula 40.0 55 10/26/16 23:00 80 23 122/65 98 10/26/16 22:00 78 24 104/63 98 10/26/16 21:00 80 20 118/62 97 10/26/16 20:31 85 25 103/52 95 10/26/16 20:00 37.0 10/26/16 20:00 98 Nasal Cannula 40.0 55 10/26/16 20:00 78 20 129/68 97 10/26/16 19:53 80 18 98 Nasal Cannula 55 10/26/16 19:30 78 25 116/61 97 10/26/16 19:00 76 21 103/59 97 10/26/16 15:30 High Flow Oxygen 60 Humidified Oxygen Mask 10/26/16 14:30 77 21 114/56 97 10/26/16 14:15 84 16 94 Nasal Cannula 60 10/26/16 14:00 74 21 113/64 96 High Flow Oxygen 40.0 60 10/26/16 13:30 74 24 103/59 97 10/26/16 13:00 74 15 116/63 96 10/26/16 12:30 73 13 104/58 97 10/26/16 12:00 78 21 123/61 98 10/26/16 11:30 High Flow Oxygen 60 Humidified Oxygen Mask 10/26/16 11:30 36.7 85 18 120/62 98 High Flow Oxygen 40.0 60 10/26/16 11:00 85 18 109/60 92 10/26/16 10:30 84 15 111/59 94 10/26/16 10:00 87 24 104/47 88 10/26/16 09:30 88 15 113/61 96 60 10/26/16 09:00 87 26 115/56 98 10/26/16 08:30 84 25 100/61 96 10/26/16 08:30 84 16 94 Mask 12.0 60 10/26/16 08:01 84 19 86/52 93 10/26/16 08:00 82 14 93 10/26/16 07:30 36.7 87 23 121/50 93 12.0 70 10/26/16 07:30 Humidified Oxygen 12.0 70 Mask Physical Exam General Appearance: WD/WN, no apparent distress ENT: hearing grossly normal Neck: supple, + pertinent finding (right IJ line in situ) Respiratory/Chest: no respiratory distress, no accessory muscle use, + decreased breath sounds, + pertinent finding (Course breath sounds) Cardiovascular: regular rate, rhythm, no murmur Abdomen: normal bowel sounds, non tender, soft Extremities: no pedal edema, + calf tenderness, + pertinent finding (Allodynia on lower extremities bilaterally) Neurologic/Psychiatric: alert, oriented x 3, + depressed affect Skin: + mottled, + pallor, + pertinent finding (Significant ischemic skin changes visible on left foot) Laboratory Results Results Past 24 Hours Test 10/27/16 00:13 10/27/16 05:40 10/27/16 05:47 10/27/16 11:00 Range/Units Sodium Level 139 137 136-145 mmol/L Potassium Level 3.9 3.7 3.5-5.1 mmol/L Chloride Level 97 96 98-107 mmol/L Carbon Dioxide Level 36 36 21-32 mmol/L Anion Gap 6.0 5.0 3-11 mmol/L Blood Urea Nitrogen 11 11 7-18 mg/dl Creatinine 0.53 0.54 0.60-1.40 mg/dl Est Creatinine Clear Calc Drug Dose 129.1 126.3 ml/min Estimated GFR () 126.0 125.0 Estimated GFR (Non- 108.7 107.9 BUN/Creatinine Ratio 20.6 19.6 10-20 Random Glucose 105 97 70-99 mg/dl Calcium Level 8.0 8.0 8.5-10.1 mg/dl Phosphorus Level 2.8 2.6 2.5-4.9 mg/dl Magnesium Level 2.3 2.3 1.8-2.4 mg/dl White Blood Count 18.52 4.8-10.8 K/uL Red Blood Count 2.94 4.7-6.1 M/uL Hemoglobin 8.4 14.0-18.0 g/dL Hematocrit 26.0 42-52 % Mean Corpuscular Volume 88.4 80-100 fL Mean Corpuscular Hemoglobin 28.6 25-34 pg Mean Corpuscular Hemoglobin Concent 32.3 32-36 g/dl Platelet Count 252 130-400 K/uL Mean Platelet Volume 9.5 7.4-10.4 fL Neutrophils (%) (Auto) 85.7 % Lymphocytes (%) (Auto) 3.3 % Monocytes (%) (Auto) 8.2 % Eosinophils (%) (Auto) 0.1 % Basophils (%) (Auto) 0.1 % Neutrophils # (Auto) 15.87 1.4-6.5 K/uL Lymphocytes # (Auto) 0.62 1.2-3.4 K/uL Monocytes # (Auto) 1.52 0.11-0.59 K/uL Eosinophils # (Auto) 0.01 0-0.5 K/uL Basophils # (Auto) 0.02 0-0.2 K/uL RDW Standard Deviation 52.7 36.4-46.3 fL RDW Coefficient of Variation 16.4 11.5-14.5 % Immature Granulocyte % (Auto) 2.6 % Immature Granulocyte # (Auto) 0.48 0.00-0.02 K/uL Nucleated RBC Absolute Count (auto) 0.06 0-0 K/uL Nucleated Red Blood Cells % 0.3 % Polychromasia 1+ Activated Partial Thromboplast Time 53.8 21.0-31.0 SECONDS Partial Thromboplastin Ratio 2.1 Total Bilirubin 0.8 0.2-1 mg/dl Direct Bilirubin 0.4 0-0.2 mg/dl Aspartate Amino Transf (AST/SGOT) 40 15-37 U/L Alanine Aminotransferase (ALT/SGPT) 25 12-78 U/L Alkaline Phosphatase 93 45-117 U/L Total Protein 5.1 6.4-8.2 gm/dl Albumin 1.8 3.4-5.0 gm/dl Bedside Glucose 116 70-99 mg/dl Lab Scanned Report Blood Transfusion Tag [id number] Test 10/27/16 11:26 10/27/16 16:24 Range/Units Bedside Glucose 115 111 70-99 mg/dl Assessment and Plan 70 year old male prisoner with h/o of smoking, permanent a.flutter on warfarin, COPD, p/w SOB, cough, hemoptysis found to have multiple PE's on CTA, LLL consolidation in addition to acute occlusion of the left popliteal artery s/p embolectomy x2 with BKA scheduled Acute Hypoxic Resp failure - Desaturation suspected to be due to mucus plugs LLL s/p bronchoscopy (10/23, 10/25), with suction. Bronchial washings, no growth to date, MRSA swab negative - Continue oxygen support via CPAP to maintain sats > 92% - Continue Atrovent and Xopenex nebulizers Left Lower Extremity Artery Occlusion - Left leg is pulseless and cold below the left knee, with evidence of ischemia in the foot. Repeat surgical revascularization of the left leg was unsuccessful - Left BKA scheduled for 10/28/16 Pulmonary Embolism - IVC filter in place due to failure of outpatient anticoagulation on Coumadin. DVT in the left lower extremity (popliteal and peroneal veins). - Continue Heparin drip for anticoagulation. - Monitor H/H Hypercoagulable State suspicious for Malignancy - DVT / PE despite supratherapeutic INR. CTA revealed prominent mediastinal and hilar nodes - upon Dr. Casillas's review there might have been adenopathy extended two years prior on previous imagining, LLL consolidation is a new finding. s/p repeat embolectomy of LLE LLL Consolidation - PE vs aspiration pneumonia vs malignancy. CXR not significantly changed from previous. Blood cultures are negative, antibiotics discontinued - Continue Flutter valve, chest physiotherapy and incentive spirometry Acute on Chronic Afib/Flutter restarting on 10/21/16 - Last ECHO in Jul 2016 showed Normal EF and mitral valve calcification - Continue metoprolol 12.5mg BID for rate control, and Heparin for anticoagulation - Amiodarone changed to PO 400mg x 1 week, then 200mg thereafter, as per cardiology Hypotension -BP stable. Levophed d/c'd T2DM - glycemic consult Hypothyroid - TSH and T4 normal in Sep. - Continue Synthroid 225mcg DVT/GI Prophylaxis - Continue Heparin drip, Pantoprazole PO 40mg Continued [facility] stay due to: inadequate oral pain control, ambulation difficulties, multiple IV medications needed Discharge planning: other Resident Tracking Resident Involvement: Resident Care Provided Care Provided: Adult Hospital Medicine History Resident Physician Supervision Note: I was present with Dr. Velazquez during the history and exam. I discussed the case with the resident and agree with the findings and plan as documented in the note. Any exceptions or clarifications are listed here. Pt seen and examined at bedside. No acute events overnight. Pt reports shortness of breath at present has improved, and is similar to initial episode of PE in July which also gradually improved. His leg pain is stable from previous. He reports no chest pain, lightheadedness, palpitations, n/v/d/c, abd pain. We discussed in detail his code status, as his last update was DNR/DNI in 2004 and his primary POA as listed is . POLST form completed - general goal is prolonged life as long as quality can be maintained, and daughter is new POA which is now listed in contact surrogate on POLST. General Appearance: no apparent distress, thin, other (on hi flow O2) Respiratory: chest non-tender, no accessory muscle use, decreased breath sounds , wheezing (scattered end exp) Cardiovascular: normal peripheral pulses, regular rate, rhythm, no murmur Skin Characteristics: other (RLE stabily discolored adn significantly TTP and manipulation) Assessment/Plan 70 y/o male h/o AFib, PE/DVT presents w/ LLE ischemia and worsening SOB LLE ischemia s/p embolectomy - Dr. Fry on board and recommendations appreciated - amputation planned for 3.29 Afib w/ RVR - continue amiodarone, metoprolol PE and LLE DVT s/p IVC filter 3.21 while on coumadin - continue heparin Hyperglycemia - ISS Hypothyroidism - continue synthroid h/o COPD w/ recent PNA s/p tx - continue duonebs, Anemia in the setting of GIB - Hgb stable Constipation- miralax PRN h/o SCC of the rectum s/p chemo/rad
[2016-10-27] MEDS ORDERED: POTASSIUM CHLORIDE 10 MEQ TABCR PO ONE (10:30)
[2016-10-27] MEDS: POTASSIUM CHLR 20MEQ / WTR IV SCH ×3 (10:47→14:41)
--- NOTE | 2016-10-27 10:59 | Progress Note ---
Progress Note Date of Service Oct 27, 2016. Progress Note Pt on OR schedule for LLE BKA on 10/28. Procedure, risks, benefits, and alternatives discussed with pt, he expresses understanding and agreement.
--- NOTE | 2016-10-27 11:04 | Anesthesiology Progress Note ---
Anesthesia Progress Note Date of Service Oct 27, 2016. Progress Notes Pt is a 70M scheduled for L BKA on 10/28/16. Pt has a complicated medical history which includes COPD, ?PNA vs. pulm malignancy, paroxysmal afib/aflutter , PE, PVD, GERD, OA, hypothyroidism, anemia, colon ca. Pt was recently extubated s/p respiratory failure. His lab work and studies were reviewed. CXR showed cardiomegaly and emphysema with mild pulmonary vascular congestion, left basilar consolidation, and developing airspace opacities in the R lung base. Pt has an elevated WBC at 18.5, but he does have an ischemic LLE and is on corticosteroids for his COPD. The patient is currently on 6L NC with an O2 saturation of 96%. Breath sounds are decreased at the bases but no audible wheezes or rhonchi. I spoke with Dr. Nesbitt, and another CXR will be ordered in the AM tomorrow. Assuming the pt's respiratory status does not worsen, pt is an acceptable candidate for general anesthesia. I consented the patient for general anesthesia +/- left femoral/sciatic block. All questions and concerns were addressed.
--- NOTE | 2016-10-27 12:39 | Pharmacy Progress Note ---
Glycemic Control: Progress Nt Date of Service Oct 27, 2016. Scope Glycemic Pharmacist consulted by Dr Coleman on 10/22/16 for glycemic control and to write orders per [facility] inpatient glycemic control protocol. Objective Accuchecks BSG (last 24hrs): Test 10/26/16 16:52 10/26/16 20:35 10/27/16 00:13 10/27/16 05:40 Bedside Glucose 112 mg/dl (70-99) 140 mg/dl (70-99) Random Glucose 105 mg/dl (70-99) 97 mg/dl (70-99) Test 10/27/16 05:47 10/27/16 11:26 Bedside Glucose 116 mg/dl (70-99) 115 mg/dl (70-99) Laboratory Data (last 24hrs) Test 10/27/16 00:13 10/27/16 05:40 Anion Gap 6.0 mmol/L 5.0 mmol/L BUN/Creatinine Ratio 20.6 19.6 Blood Urea Nitrogen 11 mg/dl 11 mg/dl Creatinine 0.53 mg/dl 0.54 mg/dl Potassium Level 3.9 mmol/L 3.7 mmol/L Sodium Level 139 mmol/L 137 mmol/L White Blood Count 18.52 K/uL Red Blood Count 2.94 M/uL Hemoglobin 8.4 g/dL Hematocrit 26.0 % Mean Corpuscular Volume 88.4 fL Mean Corpuscular Hemoglobin 28.6 pg Mean Corpuscular Hemoglobin Concent 32.3 g/dl Platelet Count 252 K/uL Mean Platelet Volume 9.5 fL Neutrophils (%) (Auto) 85.7 % Lymphocytes (%) (Auto) 3.3 % Monocytes (%) (Auto) 8.2 % Eosinophils (%) (Auto) 0.1 % Basophils (%) (Auto) 0.1 % Neutrophils # (Auto) 15.87 K/uL Lymphocytes # (Auto) 0.62 K/uL Monocytes # (Auto) 1.52 K/uL Eosinophils # (Auto) 0.01 K/uL Basophils # (Auto) 0.02 K/uL HbA1c: Test 10/22/16 05:38 Hemoglobin A1c 6.1 % (4.5-5.6) H Recent Pertinent Medications Outpatient Anti-diabetic Regimen: * no out-pt medications for DM * A1c = 6.1 % 10/22/16 The patient is currently receiving: * Basal insulin: Lantus -- units every -- hours * Correctional Insulin: Novolog Correction per scale ACHS Goal Range: Low 140 mg/dL - High 180 mg/dL Correction Factor: 35 mg/dL/unit * Prandial insulin: Per carb ratio of 1 unit per 15 grams CHO consumed * Oral Agents: none currently Risk Factors for Insulin Resistance: * IVF: Heparin drip mixed in D5W * Recent Surgery: s/p lower extremity embolectomies; will be returning to OR tomorrow for L BKA * Diet: T2DM / clears has been ordered however not tolerating well due to GI distress * Mechanical Ventilation: extubated 10/25, currently on 6L NC Assessment & Plan ASSESSMENT: 10/26/16 * Glycemic control remains quite good since transitioning off the insulin drip yesterday * Fasting BSG 87-96 this AM w/ only 7 units of Lantus on board * May need to lessen or hold the basal insulin dose. He was likely requiring more insulin in the form of an insulin drip secondary to IV steroids which are no longer being given. A1c is 6.1%. He may require no basal insulin while PO intake is poor. Will hold basal insulin at this time and follow fasting trend. * The current CF and CR are reasonable starting points 10/27/16 * Glycemic control acceptable; BSGs ranged 97-140 over last 24 hrs * No basal insulin on board this AM, fasting BSG 97-116, will continue to hold * Novolog has been ordered however no correctional or prandial insulin was needed in the last 24 hrs; PO intake is poor due to GI distress * Patient will return to OR tomorrow- will review meds given in OR and PACU tomorrow to determine if further insulin adjustments required in the short term however no insulin adjustments required today PLAN FOR INPATIENT GLYCEMIC CONTROL: * Continue to hold basal insulin * Continuing correction factor of 35 mg/dl/unit * Continuing carb ratio of 1 unit per 15 grams CHO consumed * Continuing goal range of Low 140 mg/dL - High 180 mg/dL * Please note that the plan above was derived based on current level of insulin resistance and hospital stress. These recommendations are appropriate for inpatient admission only. Plan of care upon discharge will need to be reassessed to avoid potential outpatient hypo/hyperglycemia. Thank you.
--- NOTE | 2016-10-27 13:45 | Cardiology Follow-Up ---
Subjective Subjective Date of Service: Oct 27, 2016. Pt evaluation today including: conversation w/ patient, physical exam, chart review, lab review, review of studies, review of inpatient medication list Additional Details: No events overnight. Pain in left lower extremity. Breathing still limited but easier per patient. Telemetry reviewed -- no events overnight Problem List Medical Problems: (1) Atrial flutter with rapid ventricular response Status: Acute (2) Chest pain Status: Acute (3) Dizzy Status: Acute (4) Hypotension Status: Acute (5) Hypothyroid Status: Acute (6) Left chest pressure Status: Acute (7) Pulmonary embolism Status: Acute (8) Rapid atrial fibrillation Status: Acute Review of Systems Constitutional: No fever ENT: No hearing loss Respiratory: + shortness of breath Cardiac: No chest pain, No palpitations Abdomen: No nausea, No pain Musculoskeletal: + problem reported (Left lower extremity pain) Male : No dysuria Neurologic: No memory loss Heme: + clotting problems Endo: No excessive thirst, No excessive urination Skin: + color change, + new/changing skin lesions, No rash Objective Vital Signs Last Vital Signs Documentation Date Time Temp Pulse Resp B/P Pulse Ox O2 Delivery O2 Flow Rate FiO2 10/27/16 12:00 78 18 110/61 98 Nasal Cannula 6.0 10/27/16 08:00 70 10/27/16 04:04 36.8 Physical Exam: General Appearance: no apparent distress ENT: hearing grossly normal Neck: no JVD Respiratory/Chest: chest non-tender, no respiratory distress, no accessory muscle use, + decreased breath sounds Cardiovascular: regular rate, rhythm, no murmur Abdomen: normal bowel sounds, non tender, soft Extremities: + calf tenderness Neurologic/Psychiatric: alert, normal mood/affect, oriented x 3 Skin: + mottled, + pallor, + pertinent finding (Left lower extremity, pale/ blue to level of midfoot. Extremely tender to touch. No palpable pulses) Assessment and Plan 1. Paroxysmal atrial fibrillation -- in sinus rhythm, off amio infusion, on PO amiodarone, PO metoprolol; on heparin 2. Acute respiratory failure/PE/PNA 3. LLE arterial occlusion s/p iliac embolectomy -- plan for BKA with vascular tomorrow 4. Hypercoagulable state/? malignancy - sinus rhythm maintained on amiodarone 400 mg PO BID -- continue for 7 more days before transition to 200mg BID x 1 month - continue PO metoprolol as BP allows - parenteral anticoagulation Continued [facility] stay due to: inadequate oral pain control, multiple IV medications needed Discharge planning: other Medications: Current Inpatient Medications Medications (Trade) Dose Ordered Sig/Malcolm Route Start Time Stop Time Status Last Admin Dose Admin Levothyroxine Sodium (Synthroid Tab) 225 mcg DAILYBB PO 10/18/16 08:30 11/17/16 08:29 10/27/16 05:35 225 MCG Nortriptyline HCl (Pamelor Cap) 10 mg HS PO 10/18/16 21:00 11/17/16 20:59 10/26/16 20:44 10 MG Miscellaneous Information (Order Awaiting Action) 1 ea QS N/A 10/18/16 08:00 11/17/16 07:59 Acetaminophen (Tylenol Tab) 650 mg Q4H PRN PO 10/18/16 06:45 11/17/16 06:44 10/21/16 05:23 650 MG Ondansetron HCl (Zofran Inj) 4 mg Q6H PRN IV 10/18/16 06:45 11/17/16 06:44 10/20/16 08:00 4 MG Glucose (Glucose 40% Gel) 15-30 GRAMS 15 GRAMS... UD PRN PO 10/21/16 14:45 11/20/16 14:44 Glucose (Glucose Chew Tab) 4-8 Tablets 4 Tabl... UD PRN PO 10/21/16 14:45 11/20/16 14:44 Dextrose (Dextrose 50% 50ML Syringe) 25-50ML OF 50% DW IV FOR... UD PRN IV 10/21/16 14:45 11/20/16 14:44 Glucagon 1 mg 1 mg UD PRN SQ 10/21/16 14:45 11/20/16 14:44 Heparin Sodium/ Dextrose (Heparin 25,000 Unit/500ml D5W) 500 ml @ 30 mls/hr [id number] PRN IV 10/21/16 23:45 11/20/16 23:44 10/26/16 16:52 30 MLS/HR Docusate Sodium (coLACE SYRUP) 100 mg BID PO 10/22/16 09:00 11/21/16 08:59 10/27/16 07:35 100 MG Miscellaneous Information (Consult Glycemic Management Pharmacy) 1 ea UD PRN N/A 10/22/16 09:45 11/21/16 09:44 Heparin Sodium (Porcine) (Heparin 10 Unit/ ml 5 ml Flush) 5 ml PRN PRN FLUSH 10/23/16 00:15 11/22/16 00:14 Polyethylene (Miralax Powder Packet) 17 gm BID PO 10/23/16 09:00 11/22/16 08:59 10/26/16 20:43 17 GM Senna (Senokot Syrup) 17.6 mg QAM PO 10/25/16 09:00 11/24/16 08:59 10/26/16 07:49 17.6 MG Ipratropium [place] (Atrovent 0.02% 0.5MG/2.5ML Neb) 0.5 mg Q6R INH 10/25/16 21:00 11/24/16 20:59 10/27/16 08:51 0.5 MG Levalbuterol (Xopenex 1.25MG/ 0.5ML Neb) 1.25 mg Q6R INH 10/25/16 21:00 11/24/16 20:59 10/27/16 08:51 1.25 MG Insulin Aspart (novoLOG ASPART) SLIDING SCALE ACHS SC 10/25/16 16:00 11/24/16 15:59 Bisacodyl (Dulcolax Supp) 10 mg DAILY PRN MD 10/25/16 18:00 11/24/16 17:59 Pantoprazole Sodium (Protonix Tab) 40 mg BID PO 10/25/16 21:00 11/24/16 20:59 10/27/16 07:36 40 MG Amiodarone HCl (Cordarone Tab) 400 mg BID PO 10/26/16 21:00 11/02/16 21:01 10/27/16 07:37 400 MG Metoprolol Tartrate (Lopressor Tab) 12.5 mg BID PO 10/26/16 21:00 11/25/16 20:59 10/27/16 07:36 12.5 MG Amiodarone HCl (Cordarone Tab) 200 mg BID PO 11/03/16 09:00 12/03/16 08:59 Hydromorphone HCl 0.5 mg 0.5 mg Q3H PRN IV 10/27/16 10:15 11/10/16 10:14 Potassium Chloride 20 meq/ Prmx 100 ml @ 50 mls/hr Q2H IV 10/27/16 10:30 10/27/16 16:29 10/27/16 13:05 50 MLS/HR Cefazolin Sodium/ Dextrose (Ancef Iv/D5 50ml) 55 ml @ 100 mls/hr PREOP ONCE IV 10/28/16 06:00 10/28/16 06:32 Enteral Nutritional Formula (Boost Breeze Nutritional Drink) 1 box BIDM PO 10/27/16 16:30 11/26/16 16:29 Lab Results: 10/27/16 05:40 Red Blood Count 2.94, Mean Corpuscular Volume 88.4, Mean Corpuscular Hemoglobin 28.6, Mean Corpuscular Hemoglobin Concent 32.3, Mean Platelet Volume 9.5, Neutrophils (%) (Auto) 85.7, Lymphocytes (%) (Auto) 3.3, Monocytes (%) (Auto) 8.2, Eosinophils (%) (Auto) 0.1, Basophils (%) (Auto) 0.1, Neutrophils # (Auto) 15.87, Lymphocytes # (Auto) 0.62, Monocytes # (Auto) 1.52, Eosinophils # (Auto) 0.01, Basophils # (Auto) 0.02 10/27/16 05:40 Test 10/26/16 15:18 10/27/16 05:40 10/27/16 11:00 10/27/16 11:26 Stool Occult Blood POSITIVE (NEGATIVE) White Blood Count 18.52 K/uL (4.8-10.8) Red Blood Count 2.94 M/uL (4.7-6.1) Hemoglobin 8.4 g/dL (14.0-18.0) Hematocrit 26.0 % (42-52) Mean Corpuscular Volume 88.4 fL (80-100) Mean Corpuscular Hemoglobin 28.6 pg (25-34) Mean Corpuscular Hemoglobin Concent 32.3 g/dl (32-36) Platelet Count 252 K/uL (130-400) Mean Platelet Volume 9.5 fL (7.4-10.4) Neutrophils (%) (Auto) 85.7 % Lymphocytes (%) (Auto) 3.3 % Monocytes (%) (Auto) 8.2 % Eosinophils (%) (Auto) 0.1 % Basophils (%) (Auto) 0.1 % Neutrophils # (Auto) 15.87 K/uL (1.4-6.5) Lymphocytes # (Auto) 0.62 K/uL (1.2-3.4) Monocytes # (Auto) 1.52 K/uL (0.11-0.59) Eosinophils # (Auto) 0.01 K/uL (0-0.5) Basophils # (Auto) 0.02 K/uL (0-0.2) RDW Standard Deviation 52.7 fL (36.4-46.3) RDW Coefficient of Variation 16.4 % (11.5-14.5) Immature Granulocyte % (Auto) 2.6 % Immature Granulocyte # (Auto) 0.48 K/uL (0.00-0.02) Nucleated RBC Absolute Count (auto) 0.06 K/uL (0-0) Nucleated Red Blood Cells % 0.3 % Polychromasia 1+ Activated Partial Thromboplast Time 53.8 SECONDS (21.0-31.0) Partial Thromboplastin Ratio 2.1 Anion Gap 5.0 mmol/L (3-11) Est Creatinine Clear Calc Drug Dose 126.3 ml/min Estimated GFR () 125.0 Estimated GFR (Non- 107.9 BUN/Creatinine Ratio 19.6 (10-20) Calcium Level 8.0 mg/dl (8.5-10.1) Phosphorus Level 2.6 mg/dl (2.5-4.9) Magnesium Level 2.3 mg/dl (1.8-2.4) Total Bilirubin 0.8 mg/dl (0.2-1) Direct Bilirubin 0.4 mg/dl (0-0.2) Aspartate Amino Transf (AST/SGOT) 40 U/L (15-37) Alanine Aminotransferase (ALT/SGPT) 25 U/L (12-78) Alkaline Phosphatase 93 U/L (45-117) Total Protein 5.1 gm/dl (6.4-8.2) Albumin 1.8 gm/dl (3.4-5.0) Lab Scanned Report Blood Transfusion Bedside Glucose 115 mg/dl (70-99) Date/Time Source Procedure Growth Status 10/26/16 15:18 Stool C.difficile Toxin B Gene (PCR) - Final No C. difficile toxin B gene detected Complete
[2016-10-27] MEDS: BOOST BREEZE NUTRITION DRINK 1 BOX PO SCH (16:30)
[2016-10-27] MEDS: HYDROmorphone INJ 0.5 MG/0.5 ML SYR IV PRN ×2 (17:39→20:50)
[2016-10-27] MEDS: NORTRIPTYLINE HCL 10 MG CAP PO SCH (20:51)
[2016-10-28] VITALS (23 sets, daily range): BP systolic 87–108; BP diastolic 41–60; PULSE 77–93; TEMP 36.5–36.6; O2SAT 84–98
[2016-10-28] MEDS: HEPARIN 25,000 UNIT/500ML D5W 500 ML IV PRN ×2 (00:45→23:15)
[2016-10-28] MEDS: HYDROmorphone INJ 0.5 MG/0.5 ML SYR IV PRN ×3 (00:49→21:20)
[2016-10-28] MEDS: LEVALBUTEROL 1.25MG/0.5ML NEB INH SCH ×4 (02:30→20:11)
[2016-10-28] MEDS: IPRATROPIUM BROMIDE NEB SOLN 0.02% 2.5 ML VIAL INH SCH ×4 (02:30→20:11)
[2016-10-28] MEDS: LEVOTHYROXINE 75 MCG TAB PO SCH (05:58)
[2016-10-28] MEDS ORDERED: CEFAZOLIN IV 1,000 MG in DEXTROSE 5% 50ML 50 ML IV ONE (06:00)
[2016-10-28] MEDS: INSULIN ASPART 100 UNITS/ML 3 ML PEN SC SCH ×4 (06:24→20:12)
[2016-10-28 06:35] LABS: HEMATOCRIT 26.1 % (42-52); MEAN CELL VOLUME 90.6 fL (80-100); MEAN CORPUSCULAR HEMOGLOBIN 29.2 pg (25-34); MEAN CORPUSCULAR HGB CONC 32.2 g/dl (32-36); MEAN PLATELET VOLUME 9.7 fL (7.4-10.4); PLATELET COUNT 277 K/uL (130-400); RED BLOOD COUNT 2.88 M/uL (4.7-6.1); WHITE BLOOD COUNT 20.73 K/uL (4.8-10.8)
[2016-10-28] MEDS: DOCUSATE SODIUM 100 MG/10 ML UDC PO SCH ×2 (06:49→19:41)
[2016-10-28] MEDS: BOOST BREEZE NUTRITION DRINK 1 BOX PO SCH ×2 (06:49→16:30)
[2016-10-28] MEDS: SENNA 17.6 MG/10 ML UDP PO SCH (06:50)
[2016-10-28] MEDS: POLYETHYLENE (MIRALAX) 17 GM PACK PO SCH ×2 (06:50→20:06)
[2016-10-28 06:54] LABS: PARTIAL THROMBOPLASTIN RATIO 1.9
--- NOTE | 2016-10-28 06:59 | Family Medicine Progress Note ---
Progress Note Date of Service Oct 28, 2016. Subjective Pt evaluation today including: conversation w/ patient, physical exam, chart review, lab review Voiding: hopson catheter in place Patient has ongoing hemoptysis with coughing, but is otherwise feeling that he is breathing comfortably with oxygen support now with NC instead of mask. He denies chest pain and abdominal pain, although he does describe multiple episodes of diarrhea. His largest complaint remains lower extremity pain, significantly worse on the left side. Patient anxious about surgery. Constitutional: No chills, No fever Respiratory: + cough, + hemoptysis, + sputum, No shortness of breath Cardiovascular: No PND, No chest pain, No edema, No orthopnea, No palpitations Abdomen: + diarrhea, No GI bleeding, No nausea, No pain, No vomiting Skin: + new/changing skin lesions Objective Vital Signs Date Time Temp Pulse Resp B/P Pulse Ox O2 Delivery O2 Flow Rate FiO2 10/28/16 06:00 86 19 106/57 93 10/28/16 05:00 84 19 95 10/28/16 04:00 88 14 96/51 94 10/28/16 04:00 96 Nasal Cannula 4.0 10/28/16 04:00 36.5 10/28/16 03:00 85 23 94 10/28/16 02:28 85 20 97 Nasal Cannula 5.0 10/28/16 02:00 86 21 103/56 97 10/28/16 00:01 36.6 10/28/16 00:00 82 20 108/60 96 10/27/16 23:59 97 Nasal Cannula 5.0 10/27/16 23:10 81 18 103/55 98 10/27/16 23:00 79 15 104/62 98 10/27/16 21:00 84 13 97 110/63 10/27/16 20:45 83 19 97 10/27/16 20:30 73 21 97 Nasal Cannula 6.0 10/27/16 20:30 84 26 97 10/27/16 20:15 83 24 100 10/27/16 20:00 84 27 98 104/60 10/27/16 20:00 36.7 10/27/16 20:00 Nasal Cannula 6.0 10/27/16 19:45 83 14 97 10/27/16 19:40 82 25 98 10/27/16 19:25 81 13 97 10/27/16 19:10 86 26 95 10/27/16 19:00 81 12 99 107/69 10/27/16 18:55 82 11 98 10/27/16 18:47 36.7 10/27/16 18:40 81 13 97 10/27/16 18:35 82 21 98 10/27/16 18:20 84 13 97 10/27/16 18:05 80 13 98 10/27/16 18:00 82 19 97 104/63 10/27/16 17:50 81 7 97 10/27/16 17:45 80 17 96 10/27/16 17:30 87 19 92 10/27/16 17:15 82 20 97 10/27/16 17:00 84 21 97 109/61 10/27/16 16:45 81 17 98 10/27/16 16:30 79 30 98 10/27/16 16:15 81 14 97 10/27/16 16:00 36.9 10/27/16 16:00 Nasal Cannula 6.0 10/27/16 16:00 85 19 97 110/62 10/27/16 15:45 80 12 98 10/27/16 15:30 82 18 96 10/27/16 15:15 80 19 96 10/27/16 15:00 88 22 100 109/62 10/27/16 14:20 78 21 98 Nasal Cannula 6.0 10/27/16 14:00 80 18 115/62 95 Nasal Cannula 6.0 10/27/16 12:00 78 18 110/61 98 Nasal Cannula 6.0 10/27/16 12:00 Nasal Cannula 6.0 10/27/16 10:44 80 20 89/52 97 Nasal Cannula 6.0 10/27/16 08:00 90 20 118/69 99 High Flow Oxygen 40.0 70 10/27/16 08:00 High Flow Oxygen 70 Humidified Oxygen Mask 10/27/16 07:02 91 18 94 Nasal Cannula 30.0 50 Physical Exam General Appearance: WD/WN, no apparent distress ENT: hearing grossly normal Neck: supple Respiratory/Chest: no respiratory distress, no accessory muscle use, + decreased breath sounds Cardiovascular: regular rate, rhythm, no edema, no murmur Abdomen: normal bowel sounds, non tender, soft Extremities: no pedal edema, no calf tenderness Neurologic/Psychiatric: alert, oriented x 3, + depressed affect Skin: warm/dry, + pertinent finding (Ischemic/necrotic left foot) Laboratory Results Results Past 24 Hours Test 10/27/16 22:02 10/28/16 06:21 10/28/16 06:22 10/28/16 20:11 Range/Units Bedside Glucose 119 114 127 70-99 mg/dl White Blood Count 20.73 4.8-10.8 K/uL Red Blood Count 2.88 4.7-6.1 M/uL Hemoglobin 8.4 14.0-18.0 g/dL Hematocrit 26.1 42-52 % Mean Corpuscular Volume 90.6 80-100 fL Mean Corpuscular Hemoglobin 29.2 25-34 pg Mean Corpuscular Hemoglobin Concent 32.2 32-36 g/dl RDW Standard Deviation 54.1 36.4-46.3 fL RDW Coefficient of Variation 16.7 11.5-14.5 % Platelet Count 277 130-400 K/uL Mean Platelet Volume 9.7 7.4-10.4 fL Activated Partial Thromboplast Time 50.2 21.0-31.0 SECONDS Partial Thromboplastin Ratio 1.9 Sodium Level 137 136-145 mmol/L Potassium Level 4.0 3.5-5.1 mmol/L Chloride Level 99 98-107 mmol/L Carbon Dioxide Level 33 21-32 mmol/L Anion Gap 5.0 3-11 mmol/L Blood Urea Nitrogen 11 7-18 mg/dl Creatinine 0.55 0.60-1.40 mg/dl Est Creatinine Clear Calc Drug Dose 117.8 ml/min Estimated GFR () 124.1 Estimated GFR (Non- 107.1 BUN/Creatinine Ratio 20.7 10-20 Random Glucose 103 70-99 mg/dl Calcium Level 8.1 8.5-10.1 mg/dl Phosphorus Level 3.0 2.5-4.9 mg/dl Magnesium Level 2.5 1.8-2.4 mg/dl Total Bilirubin 0.9 0.2-1 mg/dl Direct Bilirubin 0.5 0-0.2 mg/dl Aspartate Amino Transf (AST/SGOT) 29 15-37 U/L Alanine Aminotransferase (ALT/SGPT) 24 12-78 U/L Alkaline Phosphatase 87 45-117 U/L Total Protein 5.1 6.4-8.2 gm/dl Albumin 1.8 3.4-5.0 gm/dl Assessment and Plan 70 year old male prisoner with h/o of smoking, permanent a.flutter on warfarin, COPD, p/w SOB, cough, hemoptysis found to have multiple PE's on CTA, LLL consolidation in addition to acute occlusion of the left popliteal artery s/p embolectomy x2 with BKA scheduled Acute Hypoxic Resp failure - Desaturation suspected to be due to mucus plugs LLL s/p bronchoscopy (10/23, 10/25), with suction. Bronchial washings, no growth to date, MRSA swab negative - Continue oxygen support via NC to maintain sats > 92% - not attempting to wean - Continue Atrovent and Xopenex nebulizers Left Lower Extremity Artery Occlusion - Left leg is pulseless and cold below the left knee, with evidence of ischemia in the foot. Repeat surgical revascularization of the left leg was unsuccessful - Left BKA scheduled for today at 14:00, patient NPO - Pain management per surgical team Diarrhea - C.diff toxin, stool leuks, stool culture, abdominal xray ordered Pulmonary Embolism - IVC filter placed due to failure of anticoagulation on Coumadin. DVT in the left lower extremity (popliteal and peroneal veins). - Continue Heparin drip for anticoagulation. (Discontinue prior to surgery as per OR protocol) - Monitor H/H Hypercoagulable State suspicious for Malignancy - DVT / PE despite supratherapeutic INR. CTA revealed prominent mediastinal and hilar nodes - upon Dr. Casillas's review there might have been adenopathy extended two years prior on previous imagining, LLL consolidation is a new finding. H/o rectal SCC s/p chemo/rad LLL Consolidation - PE vs aspiration pneumonia vs malignancy. CXR not significantly changed from previous. Blood cultures are negative, antibiotics discontinued - Continue Flutter valve, chest physiotherapy and incentive spirometry Acute on Chronic Afib/Flutter restarting on 10/21/16 - Last ECHO in Jul 2016 showed Normal EF and mitral valve calcification - Continue metoprolol 12.5mg BID for rate control, and Heparin for anticoagulation - Amiodarone changed to PO 400mg x 1 week, then 200mg thereafter, as per cardiology Hypotension -BP stable T2DM - glycemic consult Hypothyroid - TSH and T4 normal in Fe. - Continue Synthroid 225mcg DVT/GI Prophylaxis - Continue heparin drip, pantoprazole PO 40mg Dispo - Code status: full resuscitation, provided the efforts are not futile and there is potential to maintain some aspect of quality of life on recovery Continued [facility] stay due to: inadequate oral pain control, multiple IV medications needed Discharge planning: other Resident Tracking Resident Involvement: Resident Care Provided Care Provided: Adult Hospital Medicine History Resident Physician Supervision Note: I was present with Dr. Velazquez during the history and exam. I discussed the case with the resident and agree with the findings and plan as documented in the note. Any exceptions or clarifications are listed here. Pt seen and examined at bedside. Shortness of breath and LLE pain are unchanged from previous. Patient is anxious regarding impending surgery but is looking forward to improvement in symptoms. Reports no fever, chills, n/v, ANGUIANO, lightheadedness. General Appearance: WD/WN, mild distress Respiratory: chest non-tender, no respiratory distress, decreased breath sounds , rhonchi, wheezing Cardiovascular: normal peripheral pulses, regular rate, rhythm, no murmur Assessment/Plan 70 y/o male h/o AFib, PE/DVT presents w/ LLE ischemia and worsening SOB LLE ischemia s/p embolectomy and amputation - Dr. 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
[2016-10-28 07:06] LABS: BUN/CREATININE RATIO 20.7 (10-20); CALCIUM 8.1 mg/dl (8.5-10.1); CREATININE 0.55 mg/dl (0.60-1.40); MAGNESIUM 2.5 mg/dl (1.8-2.4)
[2016-10-28] MEDS: METOPROLOL TARTRATE 25 MG TAB PO SCH ×2 (08:08→20:05)
[2016-10-28] MEDS: PANTOprazole SOD 40 MG TAB PO SCH ×2 (08:08→20:07)
[2016-10-28] MEDS: AMIODARONE 200 MG TAB PO SCH ×2 (08:08→20:04)
[2016-10-28] MEDS: ALBUMIN HUMAN 25% 12.5 GM/50 ML VIAL IV SCH ×2 (10:48→11:03)
[2016-10-28] MEDS: POTASSIUM CHLR 20 MEQ / WTR 20 MEQ in PREMIXED WATER 100 ML IV SCH ×3 (11:02→16:56)
--- NOTE | 2016-10-28 12:29 | Progress Note ---
Progress Note Date of Service Oct 28, 2016. Progress Note Patient for a left BKA today. I have discussed the risks options and benefits of the procedure with the patient. The patient understands the risks options and benefits and agrees to the procedure. I have examined the patient, reviewed the History & Physical and in the interval since the performance of the History & Physical I have noted the following changes of clinical significance: No changes noted
[2016-10-28] MEDS ORDERED: FENTANYL CITRATE INJ 50 MCG/1 ML 2 ML VIAL ONE (14:44)
[2016-10-28] MEDS ORDERED: PROPOFOL IV EMULSION 10 MG/ML 20 ML VIAL IV ONE (14:44)
[2016-10-28] MEDS ORDERED: KETAMINE HCL INJ 50 MG/ML 10 ML VIAL ONE (14:44)
[2016-10-28] MEDS ORDERED: BUPIVACAINE 0.5 % 5 MG/1 ML PF 10ML VIAL ONE (14:46)
[2016-10-28] MEDS ORDERED: MIDAZOLAM HCL 1 MG/ML 2ML VIAL ONE (14:47)
[2016-10-28] MEDS ORDERED: LIDOCAINE HCL 2% 2 ML VIAL (20MG/ML) ONE (14:47)
[2016-10-28] MEDS ORDERED: CEFAZOLIN SOD 1000MG/55 ML D5W IV ONE (14:54)
[2016-10-28] MEDS ORDERED: PHENYLEPHRINE HCL INJ 10 MG/ML VIAL ONE (15:46)
[2016-10-28] MEDS ORDERED: ONDANSETRON INJ 2 MG/ML 2 ML VIAL ONE (15:46)
--- NOTE | 2016-10-28 16:31 | [facility] Post Operative Brief Note ---
Immediate Operative Summary Operative Date Oct 28, 2016. Pre-Operative Diagnosis Ischemic Left Foot Post-Operative Diagnosis Ischemic Left Foot Procedure(s) Performed Left Leg Below Knee Amputation Surgeon Dr. Fry [employer] Surgeon(s) Dr. Crabtree & Danna Boswell PA-C Estimated Blood Loss 300ml Findings Viable muscle Specimens A: Left Lower Leg Anesthesia Gen Complication(s) None Disposition Recovery Room / PACU
--- NOTE | 2016-10-28 17:03 | Anesthesiology Progress Note ---
Anesthesia Post Op Note Date & Time Oct 28, 2016 at 16:57 Vital Signs Pain Intensity: 7.0 Vital Signs Past 12 Hours Date Time Temp Pulse Resp B/P Pulse Ox O2 Delivery O2 Flow Rate FiO2 10/28/16 14:20 84 20 103/53 97 Nasal Cannula 5.0 10/28/16 12:00 80 20 103/55 96 Nasal Cannula 4.0 10/28/16 12:00 Nasal Cannula 4.0 10/28/16 10:00 77 20 87/59 91 Nasal Cannula 4.0 10/28/16 08:00 Nasal Cannula 4.0 10/28/16 08:00 91 18 104/51 94 Nasal Cannula 4.0 10/28/16 07:30 85 20 96 Nasal Cannula 4.0 10/28/16 06:00 86 19 106/57 93 10/28/16 05:00 84 19 95 Notes Mental Status: alert / awake / arousable, participated in evaluation Pt Amnestic to Procedure: Yes Nausea / Vomiting: adequately controlled Pain: adequately controlled Airway Patency, RR, SpO2: stable & adequate BP & HR: stable & adequate Hydration State: stable & adequate Anesthetic Complications: no major complications apparent Pt had left BKA under GA. Had modest hypotension in OR, treated with volume expansion, phenylephrine/vasopressin and PRBCs transfusion. SICU admission postoperatively was discussed with surgeon and agreed upon. Discussed case with director of infection control Dr. Nesbitt who agreed to accept pt in SICU. Pt transported to 111 post op, awake, breathing spontaneously, VSS, report given.
[2016-10-28] MEDS: NORTRIPTYLINE HCL 10 MG CAP PO SCH (20:06)
[2016-10-28] MEDS ORDERED: LOPERAMIDE HCL 2 MG CAP PO PRN (21:00)
--- NOTE | 2016-10-28 22:51 | DIAGNOSTIC IMAGING REPORT ---
ABDOMEN 2 VIEWS CLINICAL HISTORY: Diarrhea nausea COMPARISON STUDY: 10/21/2016 FINDINGS: Nonobstructive bowel pattern. No evidence for free air. Inferior vena caval filter in position. Surgical clips overlying the left hip region. IMPRESSION: Nonobstructive bowel pattern. Postoperative changes as noted. Electronically signed by: Domo Lucas M.D. 10/28/2016 10:50 PM Dictated Date/Time: 10/28/2016 10:49 PM
[2016-10-29] VITALS (20 sets, daily range): BP systolic 91–115; BP diastolic 50–61; PULSE 18–98; TEMP 37.1–37.4; O2SAT 85–98
[2016-10-29] MEDS: HYDROmorphone INJ 0.5 MG/0.5 ML SYR IV PRN ×3 (01:25→19:40)
[2016-10-29] MEDS: IPRATROPIUM BROMIDE NEB SOLN 0.02% 2.5 ML VIAL INH SCH ×4 (02:11→20:23)
[2016-10-29] MEDS: LEVALBUTEROL 1.25MG/0.5ML NEB INH SCH ×4 (02:11→20:23)
[2016-10-29 06:09] LABS: BASO % 0.1 %; BASO ABS # 0.02 K/uL (0-0.2); HEMATOCRIT 27.1 % (42-52); IG% 3.6 %; LYMPH % 7.5 %; LYMPH ABS # 1.32 K/uL (1.2-3.4); MEAN CELL VOLUME 89.7 fL (80-100); MEAN CORPUSCULAR HEMOGLOBIN 29.5 pg (25-34); MEAN CORPUSCULAR HGB CONC 32.8 g/dl (32-36); MEAN PLATELET VOLUME 9.4 fL (7.4-10.4); MONO % 4.7 %; NEUT % 84.1 %; PLATELET COUNT 257 K/uL (130-400); RED BLOOD COUNT 3.02 M/uL (4.7-6.1); WHITE BLOOD COUNT 17.57 K/uL (4.8-10.8)
[2016-10-29] MEDS: LEVOTHYROXINE 75 MCG TAB PO SCH (06:26)
[2016-10-29 06:37] LABS: CREATININE 0.51 mg/dl (0.60-1.40); MAGNESIUM 2.1 mg/dl (1.8-2.4); POTASSIUM 3.7 mmol/L (3.5-5.1)
[2016-10-29] MEDS: INSULIN ASPART 100 UNITS/ML 3 ML PEN SC SCH ×2 (06:45→20:15)
--- NOTE | 2016-10-29 07:05 | OPERATIVE REPORT ---
DATE OF OPERATION: 10/28/2016 PREOPERATIVE DIAGNOSIS: Left lower extremity ischemia. POSTOPERATIVE DIAGNOSIS: Same. PROCEDURE: Left below knee amputation. SURGEON: Dr. Olayinka Fyr. LOGISTICS ACCOUNT MANAGER: Dr. Michael Crabtree; Danna Boswell PA-C ANESTHESIA: General. ESTIMATED BLOOD LOSS: 250 mL. COMPLICATIONS: None. INDICATIONS: This is a 70-year-old gentleman who presented to us last week with acute on chronic limb ischemia. He underwent multiple revascularization procedures. He also had some fairly extensive venous thrombosis as well. We were able to restore circulation to his hip but unfortunately he had thrombosis of the microvasculature of his foot. His foot was mildly cold and painful. Below knee amputation was indicated for relief of his symptoms. He understood the risks, benefits, alternatives and agreed to proceed. OPERATION IN DETAIL: The patient brought to the operating room and placed in supine position. Left lower extremity was prepped and draped in normal sterile fashion. Timeout was performed and all parties agreed to correct patient and procedure to be performed. Appropriate surgical prophylactic antibiotics were administered within 1 hour of the incision. An incision was made approximately 4 fingerbreadths below the tibial tuberosity. This encompassed approximately 1/3 of the circumference of the leg. This incision was deepened with electrocautery. Posteriorly, the incision was taken down approximately 8-10 cm below the anterior incision. This encompassed about two-thirds of the circumference of the leg. The musculature of the anterior compartment was divided with electrocautery. The neurovascular bundle in the anterior compartment was encountered. It was tied between silk ligatures. Next, the fibula was cleared off with blunt dissection. Using a power saw, the fibula was divided. We then turned our attention to the tibia. It was also cleared with the help of electrocautery and a rongeur. The tibia was divided with the use of a Gigli saw. It was bevelled proximally. Next, the large amputation knife was brought onto the field. The skin incision had previously been connected posteriorly. The amputation knife was used to cut through all the soft tissues and connect to our posterior incision. There was a moderate amount of bleeding encountered at this point. The posterior tibial artery did appear to be thrombosed and there was a fair amount of venous thrombosis as well. All of the bleeding areas were controlled with Bovie cautery and silk ligatures. The flap set nicely, however, there was a little bit of extra bone. Therefore, both the tibia and fibula were resected approximately 1-2 cm more proximally with help of a power saw. All of the excess musculature was trimmed. There really was a nice flap which was set over the bone stump. The wound was copiously irrigated. Hemostasis was achieved. The wound was closed in layers with the help of an interrupted Vicryl suture to the fascia. The skin was closed with avelino. A sterile dressing was applied. The patient was extubated, awakened from anesthesia and transferred to the ICU in satisfactory condition. There were no immediate complications. I attest to the content of the Intraoperative Record and any orders documented therein. Any exceptio ns are noted below.
--- NOTE | 2016-10-29 07:09 | Family Medicine Progress Note ---
Progress Note Date of Service Oct 29, 2016. Subjective Pt evaluation today including: conversation w/ patient, physical exam, chart review, lab review Patient is breathing comfortably with oxygen support now with NC and has ongoing hemoptysis with coughing, but otherwise denies chest pain and dyspnea. He has had fewer, but ongoing episodes of diarrhea, but denies abdominal pain or significant thirst. His largest complaint remains lower extremity pain, particularly at the incision site. The pain is however, now mirrored in the right leg, and both are highly sensitive to touch and movement. Pain medication does take the edge off the pain to some degree. Constitutional: No fever Respiratory: + cough, + hemoptysis, No shortness of breath Cardiovascular: No chest pain Abdomen: + diarrhea, No GI bleeding, No nausea, No pain, No vomiting Musculoskeletal: + muscle pain Objective Vital Signs Date Time Temp Pulse Resp B/P Pulse Ox O2 Delivery O2 Flow Rate FiO2 10/29/16 06:00 89 20 103/52 92 Mask 10/29/16 04:00 88 32 95/55 94 Mask 10/29/16 04:00 Nasal Cannula 6.0 10/29/16 03:00 90 23 105/55 92 Mask 10/29/16 02:30 90 19 91/56 92 Mask 10/29/16 02:11 89 20 85 Venturi Mask 15.0 50 10/29/16 02:00 89 26 105/54 92 Mask 10/29/16 01:30 89 24 103/57 89 Mask 10/29/16 01:00 88 24 99/53 91 Venturi Mask 40 10/29/16 00:30 90 19 92/52 92 Venturi Mask 40 10/29/16 00:05 Nasal Cannula 6.0 10/29/16 00:00 87 103/53 94 Venturi Mask 40 10/28/16 23:30 93 23 90/49 84 Venturi Mask 40 10/28/16 23:00 91 94/50 91 Venturi Mask 40 10/28/16 22:00 91 24 97/46 89 Venturi Mask 40 10/28/16 21:30 91 24 93/47 89 Nasal Cannula 5.0 10/28/16 21:00 91 88/45 88 Nasal Cannula 5.0 10/28/16 20:30 89 96/50 93 Nasal Cannula 5.0 10/28/16 20:16 84 20 97 Nasal Cannula 6.0 10/28/16 20:01 86 23 96/41 92 Nasal Cannula 6.0 10/28/16 20:00 Nasal Cannula 6.0 10/28/16 18:18 81 18 94/52 97 Mask 10.0 10/28/16 17:05 36.6 77 20 101/48 98 Mask 10 10/28/16 16:45 Mask 10.0 10/28/16 16:45 77 18 101/48 98 Mask 10.0 10/28/16 16:45 36.6 71 20 111/61 98 Mask 10 Arterial Line 10/28/16 14:20 84 20 103/53 97 Nasal Cannula 5.0 10/28/16 12:00 80 20 103/55 96 Nasal Cannula 4.0 10/28/16 12:00 Nasal Cannula 4.0 10/28/16 10:00 77 20 87/59 91 Nasal Cannula 4.0 10/28/16 08:00 Nasal Cannula 4.0 10/28/16 08:00 91 18 104/51 94 Nasal Cannula 4.0 10/28/16 07:30 85 20 96 Nasal Cannula 4.0 Physical Exam General Appearance: WD/WN, no apparent distress Eyes: normal inspection ENT: hearing grossly normal Neck: supple, no adenopathy Respiratory/Chest: lungs clear, no respiratory distress, no accessory muscle use, + decreased breath sounds Cardiovascular: regular rate, rhythm, no murmur Abdomen: normal bowel sounds, non tender, soft Extremities: no pedal edema, no calf tenderness, + pertinent finding (left leg amputated below knee, end wrapped in dressing, no obvious seeping) Neurologic/Psychiatric: alert, normal mood/affect, oriented x 3 Skin: normal color, warm/dry, no rash Assessment and Plan 70 year old male prisoner with h/o of smoking, permanent a.flutter on warfarin, COPD, p/w SOB, cough, hemoptysis found to have LLL consolidation on CXR, multiple PE's on CTA, in addition to acute occlusion of the left popliteal artery s/p embolectomy x2 despite warfarin use. IVF inserted 10/20/16. BKA performed on 10/28/16. Patient has history of rectal SCC s/p chemo-radiation therapy Acute Hypoxic Resp failure - Desaturation suspected to be due to mucus plugs LLL s/p bronchoscopy (10/23, 10/25), with suction. Bronchial washings, no growth to date, MRSA swab negative - Continue oxygen support via NC to maintain sats > 92% - not attempting to wean - Continue Atrovent and Xopenex nebulizers Left Lower Extremity Artery Occlusion - Left leg was pulseless and cold below the left knee, with evidence of ischemia in the foot. Repeat surgical revascularization of the left leg was unsuccessful. Left BKA performed successfully. - Pain management with IV Dilaudid and Gabapentin Diarrhea - frequency decreasing. Holding off Imodium in view of unknown cause. - C.diff toxin, stool leuks, stool culture, abdominal xray ordered, results pending - Gentle IVF NSS bolus for volume repletion Pulmonary Embolism - IVC filter placed due to failure of anticoagulation on Coumadin. DVT in the left lower extremity (popliteal and peroneal veins). - Continue Heparin drip for anticoagulation. - Monitor H/H Hypercoagulable State suspicious for Malignancy - DVT / PE despite supratherapeutic INR. CTA revealed prominent mediastinal and hilar nodes - upon Dr. Casillas's review there might have been adenopathy extended two years prior on previous imagining, LLL consolidation is a new finding. H/o rectal SCC s/p chemo/rad LLL Consolidation - PE vs aspiration pneumonia vs malignancy. CXR not significantly changed from previous. Blood cultures are negative, antibiotics discontinued - Continue Flutter valve, chest physiotherapy and incentive spirometry Acute on Chronic Afib/Flutter restarting on 10/21/16 - Last ECHO in Jul 2016 showed Normal EF and mitral valve calcification - Continue metoprolol 12.5mg BID for rate control, and Heparin for anticoagulation - Amiodarone changed to PO 400mg x 1 week, then 200mg thereafter, as per cardiology Hypotension -BP stable T2DM - glycemic consult Hypothyroid - TSH and T4 normal in Sep. - Continue Synthroid 225mcg DVT/GI Prophylaxis - Continue heparin drip, pantoprazole PO 40mg Dispo - Code status: full resuscitation, provided the efforts are not futile and there is potential to maintain some aspect of quality of life on recovery Continued [facility] stay due to: inadequate oral pain control, multiple IV medications needed Discharge planning: other Resident Tracking Resident Involvement: Resident Care Provided Care Provided: Adult Hospital Medicine History Resident Physician Supervision Note: I was present with Dr. Velazquez during the history and exam. I discussed the case with the resident and agree with the findings and plan as documented in the note. Any exceptions or clarifications are listed here. Pt seen and examined at bedside in the ICU on telemetry. Pt reports persistent aching pain of the left lateral knee at the site of the amputation which worsens with movement or direct pressure. He also reports some aching pain of the lower back which is nonradiating and worsens/improves with positional changes. His shortness of breath he states has improved from previous, but he is still feeling fatigued following his surgery. He reports no ANGUIANO, chest pain, n /v, fever/chills. General Appearance: mild distress (discomfort from pain) Respiratory: chest non-tender, no respiratory distress, decreased breath sounds (throughout) Cardiovascular: normal peripheral pulses, regular rate, rhythm, no murmur Extremities: other (LLE s/p BKA with dressing C/D/I) Neurologic/Psychiatric: no motor/sensory deficits, alert, oriented x 3 Assessment/Plan 70 y/o male h/o AFib, PE/DVT presents w/ LLE ischemia and worsening SOB LLE ischemia s/p embolectomy and amputation - Dr. 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 Start gabapentin for pain , to escalate gradually. 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 Pt chronic immodium user. Afib w/ RVR - continue amiodarone, metoprolol Hyperglycemia - ISS Hypothyroidism - continue synthroid h/o COPD w/ recent PNA s/p tx - continue duonebs, Anemia in the setting of GIB - Hgb stable h/o SCC of the rectum s/p chemo/rad
[2016-10-29 07:43] LABS: COMPLETE YES; POLYCHROMASIA 1+
[2016-10-29] MEDS: POLYETHYLENE (MIRALAX) 17 GM PACK PO SCH (07:45)
[2016-10-29] MEDS: DOCUSATE SODIUM 100 MG/10 ML UDC PO SCH (07:45)
[2016-10-29] MEDS: SENNA 17.6 MG/10 ML UDP PO SCH (07:45)
[2016-10-29] MEDS: AMIODARONE 200 MG TAB PO SCH ×2 (07:46→19:40)
[2016-10-29] MEDS: BOOST BREEZE NUTRITION DRINK 1 BOX PO SCH ×2 (07:46→16:14)
[2016-10-29] MEDS: METOPROLOL TARTRATE 25 MG TAB PO SCH ×2 (07:46→19:42)
[2016-10-29] MEDS: PANTOprazole SOD 40 MG TAB PO SCH ×2 (07:46→19:44)
[2016-10-29] MEDS ORDERED: CLONIDINE HCL 100 MCG/ML SYRINGE ONE (08:01)
--- NOTE | 2016-10-29 08:13 | Anesthesiology Progress Note ---
Anesthesia Post Op Note Date & Time Oct 29, 2016 at 08:12 Vital Signs Pain Intensity: 5.0 Vital Signs Past 12 Hours Date Time Temp Pulse Resp B/P Pulse Ox O2 Delivery O2 Flow Rate FiO2 10/29/16 06:00 89 20 103/52 92 Mask 10/29/16 04:00 88 32 95/55 94 Mask 10/29/16 04:00 Nasal Cannula 6.0 10/29/16 03:00 90 23 105/55 92 Mask 10/29/16 02:30 90 19 91/56 92 Mask 10/29/16 02:11 89 20 85 Venturi Mask 15.0 50 10/29/16 02:00 89 26 105/54 92 Mask 10/29/16 01:30 89 24 103/57 89 Mask 10/29/16 01:00 88 24 99/53 91 Venturi Mask 40 10/29/16 00:30 90 19 92/52 92 Venturi Mask 40 10/29/16 00:05 Nasal Cannula 6.0 10/29/16 00:00 87 103/53 94 Venturi Mask 40 10/28/16 23:30 93 23 90/49 84 Venturi Mask 40 10/28/16 23:00 91 94/50 91 Venturi Mask 40 10/28/16 22:00 91 24 97/46 89 Venturi Mask 40 10/28/16 21:30 91 24 93/47 89 Nasal Cannula 5.0 10/28/16 21:00 91 88/45 88 Nasal Cannula 5.0 10/28/16 20:30 89 96/50 93 Nasal Cannula 5.0 10/28/16 20:16 84 20 97 Nasal Cannula 6.0 Notes Mental Status: alert / awake / arousable, participated in evaluation Pt Amnestic to Procedure: Yes Nausea / Vomiting: adequately controlled Pain: adequately controlled Airway Patency, RR, SpO2: stable & adequate BP & HR: stable & adequate Hydration State: stable & adequate Anesthetic Complications: no major complications apparent
[2016-10-29] MEDS ORDERED: POTASSIUM CHLORIDE 20 MEQ TABCR PO ONE (11:00)
[2016-10-29] MEDS ORDERED: DIPHENOXYLATE/ATROPINE 2.5/0.025MG TAB PO ONE (11:00)
[2016-10-29] MEDS: SODIUM CHLORIDE 0.9% 1000ML 1,000 ML IV SCH (12:14)
[2016-10-29] MEDS: GABAPENTIN 100 MG CAP PO SCH ×2 (12:15→19:43)
--- NOTE | 2016-10-29 13:27 | Pharmacy Progress Note ---
Glycemic Control: Progress Nt Date of Service Oct 29, 2016. Scope Glycemic Pharmacist consulted by Dr Coleman on 10/22/16 for glycemic control and to write orders per [facility] inpatient glycemic control protocol. Objective Accuchecks BSG (last 24hrs): Test 10/28/16 20:11 10/29/16 06:00 10/29/16 11:25 Bedside Glucose 127 mg/dl (70-99) 126 mg/dl (70-99) Random Glucose 99 mg/dl (70-99) Laboratory Data (last 24hrs) Test 10/29/16 06:00 Anion Gap 7.0 mmol/L BUN/Creatinine Ratio 19.0 Blood Urea Nitrogen 10 mg/dl Creatinine 0.51 mg/dl Potassium Level 3.7 mmol/L Sodium Level 139 mmol/L White Blood Count 17.57 K/uL Red Blood Count 3.02 M/uL Hemoglobin 8.9 g/dL Hematocrit 27.1 % Mean Corpuscular Volume 89.7 fL Mean Corpuscular Hemoglobin 29.5 pg Mean Corpuscular Hemoglobin Concent 32.8 g/dl Platelet Count 257 K/uL Mean Platelet Volume 9.4 fL Neutrophils (%) (Auto) 84.1 % Lymphocytes (%) (Auto) 7.5 % Monocytes (%) (Auto) 4.7 % Eosinophils (%) (Auto) 0.0 % Basophils (%) (Auto) 0.1 % Neutrophils # (Auto) 14.78 K/uL Lymphocytes # (Auto) 1.32 K/uL Monocytes # (Auto) 0.82 K/uL Eosinophils # (Auto) 0.00 K/uL Basophils # (Auto) 0.02 K/uL HbA1c: Test 10/22/16 05:38 Hemoglobin A1c 6.1 % (4.5-5.6) H Recent Pertinent Medications Outpatient Anti-diabetic Regimen: * no out-pt medications for DM * A1c = 6.1 % 10/22/16 The patient is currently receiving: * Basal insulin: Lantus -- units every -- hours * Correctional Insulin: Novolog Correction per scale ACHS Goal Range: Low 140 mg/dL - High 180 mg/dL Correction Factor: 35 mg/dL/unit * Prandial insulin: Per carb ratio of 1 unit per 15 grams CHO consumed * Oral Agents: none currently Risk Factors for Insulin Resistance: * IVF: Heparin drip mixed in D5W * Recent Surgery: s/p lower extremity embolectomies; 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 He was likely requiring more insulin in the form of an insulin drip secondary to IV steroids which are no longer being given. A1c is 6.1%. He may require no basal insulin while PO intake is poor. Will hold basal insulin at this time and follow fasting trend. * The current CF and CR are reasonable starting points 10/27/16 * Glycemic control acceptable; BSGs ranged 97-140 over last 24 hrs * No basal insulin on board this AM, fasting BSG 97-116, will continue to hold * Novolog has been ordered however no correctional or prandial insulin was needed in the last 24 hrs; PO intake is poor due to GI distress * Patient will return to OR tomorrow- will review meds given in OR and PACU tomorrow to determine if further insulin adjustments required in the short term however no insulin adjustments required today 10/29/16 * Patient has not required any insulin in the last 3 days, despite requiring several days of IV insulin infusion while on ventilator * Will reduce BSG frequency to BID given adequate glycemic control w/ no insulin coverage * Will likely d/c' insulin coverage and BSG checks if this trend continues for another 24-48 hrs, he has a h/o "pre-diabetes" but with current stressors will likely need no insulin PLAN FOR INPATIENT GLYCEMIC CONTROL: * Continue to hold basal insulin * Change BSG frequency to AM + HS * Continuing correction factor of 35 mg/dl/unit * Discontinue carb ratio * Continuing goal range of Low 140 mg/dL - High 180 mg/dL * Please note that the plan above was derived based on current level of insulin resistance and hospital stress. These recommendations are appropriate for inpatient admission only. Plan of care upon discharge will need to be reassessed to avoid potential outpatient hypo/hyperglycemia. Thank you.
[2016-10-29] MEDS ORDERED: GABAPENTIN 400 MG CAP PO SCH (14:00)
--- NOTE | 2016-10-29 15:37 | Progress Note ---
Progress Note Date of Service: Oct 29, 2016. Subjective No complaints Problem List Medical Problems: (1) Atrial flutter with rapid ventricular response Status: Acute (2) Chest pain Status: Acute (3) Dizzy Status: Acute (4) Hypotension Status: Acute (5) Hypothyroid Status: Acute (6) Left chest pressure Status: Acute (7) Pulmonary embolism Status: Acute (8) Rapid atrial fibrillation Status: Acute Objective Vital Signs Vital Signs Past 12 Hours Date Time Temp Pulse Resp B/P Pulse Ox O2 Delivery O2 Flow Rate FiO2 10/29/16 12:00 Nasal Cannula 6.0 10/29/16 12:00 81 20 105/55 96 Mask 10/29/16 10:14 79 20 112/60 93 Mask 10/29/16 08:00 Nasal Cannula 6.0 10/29/16 08:00 98 20 104/59 93 Mask 10/29/16 07:37 89 20 85 Venturi Mask 15.0 50 10/29/16 06:00 89 20 103/52 92 Mask 10/29/16 04:00 88 32 95/55 94 Mask 10/29/16 04:00 Nasal Cannula 6.0 Exam Awake alert, VSS, Afebrile Stump dressing intact, no drainage Min pain Intake & Output 8-Hour Column 10/28/16 10/29/16 10/29/16 16:00 00:00 08:00 Intake Total 400 ml 613 ml 650 ml Output Total 900 ml 1550 ml 1400 ml Balance -500 ml -937 ml -750 ml 24-Hour Column 10/29/16 08:00 Intake Total 1663 ml Output Total 3850 ml Balance -2187 ml Laboratory and Microbiology Results Past 24 Hours Test 10/28/16 20:11 10/28/16 23:53 10/29/16 06:00 10/29/16 11:25 Range/Units Bedside Glucose 127 126 70-99 mg/dl Activated Partial Thromboplast Time 52.9 21.0-31.0 SECONDS Partial Thromboplastin Ratio 2.0 White Blood Count 17.57 4.8-10.8 K/uL Red Blood Count 3.02 4.7-6.1 M/uL Hemoglobin 8.9 14.0-18.0 g/dL Hematocrit 27.1 42-52 % Mean Corpuscular Volume 89.7 80-100 fL Mean Corpuscular Hemoglobin 29.5 25-34 pg Mean Corpuscular Hemoglobin Concent 32.8 32-36 g/dl Platelet Count 257 130-400 K/uL Mean Platelet Volume 9.4 7.4-10.4 fL Neutrophils (%) (Auto) 84.1 % Lymphocytes (%) (Auto) 7.5 % Monocytes (%) (Auto) 4.7 % Eosinophils (%) (Auto) 0.0 % Basophils (%) (Auto) 0.1 % Neutrophils # (Auto) 14.78 1.4-6.5 K/uL Lymphocytes # (Auto) 1.32 1.2-3.4 K/uL Monocytes # (Auto) 0.82 0.11-0.59 K/uL Eosinophils # (Auto) 0.00 0-0.5 K/uL Basophils # (Auto) 0.02 0-0.2 K/uL RDW Standard Deviation 52.6 36.4-46.3 fL RDW Coefficient of Variation 16.5 11.5-14.5 % Immature Granulocyte % (Auto) 3.6 % Immature Granulocyte # (Auto) 0.63 0.00-0.02 K/uL Nucleated RBC Absolute Count (auto) 0.02 0-0 K/uL Nucleated Red Blood Cells % 0.1 % Polychromasia 1+ Sodium Level 139 136-145 mmol/L Potassium Level 3.7 3.5-5.1 mmol/L Chloride Level 102 98-107 mmol/L Carbon Dioxide Level 30 21-32 mmol/L Anion Gap 7.0 3-11 mmol/L Blood Urea Nitrogen 10 7-18 mg/dl Creatinine 0.51 0.60-1.40 mg/dl Est Creatinine Clear Calc Drug Dose 125.3 ml/min Estimated GFR () 128.0 Estimated GFR (Non- 110.5 BUN/Creatinine Ratio 19.0 10-20 Random Glucose 99 70-99 mg/dl Calcium Level 8.0 8.5-10.1 mg/dl Phosphorus Level 3.0 2.5-4.9 mg/dl Magnesium Level 2.1 1.8-2.4 mg/dl Microbiology Results 10/29/16 WBC Smear - Final, Resulted 10/29/16 Shiga Toxin Test, Resulted Pending 10/29/16 Stool Culture, Resulted Pending 10/29/16 C.difficile Toxin B Gene (PCR) - Final, Complete No C. difficile toxin B gene detected Imp: Post left BKA Plan: Will change dressing tomorrow Continue PT
[2016-10-29] MEDS: NORTRIPTYLINE HCL 10 MG CAP PO SCH (19:43)
[2016-10-30] VITALS (14 sets, daily range): BP systolic 86–117; BP diastolic 56–67; PULSE 82–102; TEMP 36.8–37.9; O2SAT 90–100
[2016-10-30] MEDS: HYDROmorphone INJ 0.5 MG/0.5 ML SYR IV PRN (01:42)
[2016-10-30] MEDS: IPRATROPIUM BROMIDE NEB SOLN 0.02% 2.5 ML VIAL INH SCH ×4 (01:45→20:43)
[2016-10-30] MEDS: LEVALBUTEROL 1.25MG/0.5ML NEB INH SCH ×4 (01:45→20:43)
[2016-10-30] MEDS: INSULIN ASPART 100 UNITS/ML 3 ML PEN SC SCH (05:41)
[2016-10-30] MEDS: LEVOTHYROXINE 75 MCG TAB PO SCH (05:41)
[2016-10-30] MEDS: SODIUM CHLORIDE 0.9% 1000ML 1,000 ML IV SCH (05:41)
[2016-10-30 06:04] LABS: PARTIAL THROMBOPLASTIN RATIO 2.2
--- NOTE | 2016-10-30 07:26 | Family Medicine Progress Note ---
Progress Note Date of Service Oct 30, 2016. Subjective Pt evaluation today including: conversation w/ patient, physical exam, chart review, lab review Patient is breathing comfortably with oxygen support now with NC and has ongoing hemoptysis with coughing, but otherwise denies chest pain and dyspnea. He has had fewer, but ongoing episodes of diarrhea, but denies abdominal pain or significant thirst. He mentions that he has been using Imodium daily for the last 7 years prior to admission. His main complaint remains back pain from lying in bed and lower extremity pain, particularly at the incision site. The pain is however, now mirrored in the right leg, and both are highly sensitive to touch and movement. Pain medication does take the edge off the pain to some degree. Constitutional: No chills, No fever Respiratory: + cough, + hemoptysis, No shortness of breath Cardiovascular: No chest pain, No edema, No orthopnea, No palpitations Abdomen: + diarrhea, No nausea, No pain, No vomiting Objective Vital Signs Date Time Temp Pulse Resp B/P Pulse Ox O2 Delivery O2 Flow Rate FiO2 10/30/16 04:14 37.9 94 22 117/58 92 Nasal Cannula 5.0 10/30/16 04:00 93 Nasal Cannula 5.0 10/30/16 01:46 86 18 94 Nasal Cannula 5.0 10/29/16 23:59 93 Nasal Cannula 5.0 10/29/16 23:59 37.1 87 18 105/58 93 Nasal Cannula 5.0 10/29/16 20:26 85 18 98 Nasal Cannula 6.0 10/29/16 20:00 37.4 89 20 112/61 96 Nasal Cannula 6.0 10/29/16 20:00 96 Nasal Cannula 5.0 10/29/16 16:11 83 20 115/59 97 Mask 10/29/16 16:00 Nasal Cannula 6.0 10/29/16 14:25 80 20 92 Nasal Cannula 6.0 10/29/16 12:00 Nasal Cannula 6.0 10/29/16 12:00 81 20 105/55 96 Mask 10/29/16 10:14 79 20 112/60 93 Mask 10/29/16 08:00 Nasal Cannula 6.0 10/29/16 08:00 98 20 104/59 93 Mask 10/29/16 07:37 89 20 85 Venturi Mask 15.0 50 Physical Exam General Appearance: WD/WN, no apparent distress Eyes: normal inspection ENT: hearing grossly normal Neck: supple, no adenopathy Respiratory/Chest: lungs clear, no respiratory distress, no accessory muscle use, + decreased breath sounds Cardiovascular: regular rate, rhythm, no murmur Abdomen: normal bowel sounds, non tender, soft Extremities: no pedal edema, + calf tenderness, + pertinent finding (Amputated left lower extremity, end wrapped in bandage, no active oozing visible through bandaging) Neurologic/Psychiatric: alert, normal mood/affect, oriented x 3 Skin: normal color, warm/dry, no rash Laboratory Results Results Past 24 Hours Test 10/29/16 19:58 10/30/16 05:35 10/30/16 18:29 Range/Units Bedside Glucose 108 111 70-99 mg/dl White Blood Count 19.45 4.8-10.8 K/uL Red Blood Count 3.20 4.7-6.1 M/uL Hemoglobin 9.3 14.0-18.0 g/dL Hematocrit 29.2 42-52 % Mean Corpuscular Volume 91.3 80-100 fL Mean Corpuscular Hemoglobin 29.1 25-34 pg Mean Corpuscular Hemoglobin Concent 31.8 32-36 g/dl Platelet Count 287 130-400 K/uL Mean Platelet Volume 10.0 7.4-10.4 fL Neutrophils (%) (Auto) 84.4 % Lymphocytes (%) (Auto) 3.3 % Monocytes (%) (Auto) 9.1 % Eosinophils (%) (Auto) 0.1 % Basophils (%) (Auto) 0.1 % Neutrophils # (Auto) 16.42 1.4-6.5 K/uL Lymphocytes # (Auto) 0.64 1.2-3.4 K/uL Monocytes # (Auto) 1.77 0.11-0.59 K/uL Eosinophils # (Auto) 0.01 0-0.5 K/uL Basophils # (Auto) 0.02 0-0.2 K/uL RDW Standard Deviation 54.0 36.4-46.3 fL RDW Coefficient of Variation 16.3 11.5-14.5 % Immature Granulocyte % (Auto) 3.0 % Immature Granulocyte # (Auto) 0.59 0.00-0.02 K/uL Activated Partial Thromboplast Time 56.9 21.0-31.0 SECONDS Partial Thromboplastin Ratio 2.2 Sodium Level 140 136-145 mmol/L Potassium Level 3.8 3.5-5.1 mmol/L Chloride Level 102 98-107 mmol/L Carbon Dioxide Level 30 21-32 mmol/L Anion Gap 8.0 3-11 mmol/L Blood Urea Nitrogen 9 7-18 mg/dl Creatinine 0.55 0.60-1.40 mg/dl Est Creatinine Clear Calc Drug Dose 110.2 ml/min Estimated GFR () 124.1 Estimated GFR (Non- 107.1 BUN/Creatinine Ratio 16.5 10-20 Random Glucose 109 70-99 mg/dl Calcium Level 8.0 8.5-10.1 mg/dl Assessment and Plan 70 year old male prisoner with h/o of smoking, permanent a.flutter on warfarin, COPD, p/w SOB, cough, hemoptysis found to have LLL consolidation on CXR, multiple PE's on CTA, in addition to acute occlusion of the left popliteal artery s/p embolectomy x2 despite warfarin use. IVF inserted 10/20/16. BKA performed on 10/28/16. 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 Nonobstructive bowel pattern on AXR. No C.diff or stool leuks. Holding off Imodium in view of unknown cause. - Stool culture, O&P results pending. HIV testing results pending. Acute on Chronic Afib/Flutter restarting on 10/21/16 - Last ECHO in Jul 2016 showed Normal EF and mitral valve calcification - Continue metoprolol 12.5mg BID for rate control, and Heparin for anticoagulation - Amiodarone changed to PO 400mg x 1 week, then 200mg as of 11/03/16, as per cardiology Acute Hypoxic Resp failure - Desaturation suspected to be due to mucus plugs LLL s/p bronchoscopy (10/23, 10/25), with suction. Bronchial washings, no growth to date, MRSA swab negative - Continue oxygen support via NC to maintain sats > 92% - not attempting to wean - Continue Atrovent and Xopenex nebulizers LLL Consolidation - PE vs aspiration pneumonia vs malignancy. CXR not significantly changed from previous. Blood cultures are negative, s/p antibiotic treatment - Continue Flutter valve, chest physiotherapy and incentive spirometry Pulmonary Embolism - IVC filter placed due to failure of anticoagulation on Coumadin. DVT in the left lower extremity (popliteal and peroneal veins). - Continue Heparin drip for anticoagulation. - Monitor H/H Hypercoagulable State suspicious for Malignancy - DVT / PE despite supratherapeutic INR. CTA revealed prominent mediastinal and hilar nodes - upon Dr. Casillas's review there might have been adenopathy extended two years prior on previous imagining, LLL consolidation is a new finding. H/o rectal SCC s/p chemo/rad Hypotension -BP stable T2DM - glycemic consult Hypothyroid - TSH and T4 normal in Fe. - Continue Synthroid 225mcg DVT/GI Prophylaxis - Continue heparin drip, pantoprazole PO 40mg Dispo - Code status: full resuscitation, provided the efforts are not futile and there is potential to maintain some aspect of quality of life on recovery - No plans to wean off oxygen thus not able to return to residential. Will likely need placement at [facility] - Need plans from oncology regarding followup/treatment/management plans, if any Continued [facility] stay due to: inadequate oral pain control, multiple IV medications needed Discharge planning: other Resident Tracking Resident Involvement: Resident Care Provided Care Provided: Adult Hospital Medicine History Resident Physician Supervision Note: I was present with Dr. Velazquez during the history and exam. I discussed the case with the resident and agree with the findings and plan as documented in the note. Any exceptions or clarifications are listed here. Pt seen and examined at bedside. No acute events overnight. Pt complains of improved aching pain of the left lower extremity which is responsive to current intervention and some lower back pain relieved with position changes. Has some tenderness of the posterior right heel with direct pressure. He feels his shortness of breath has been stable and he felt short of breath with sitting rehab earlier in the day. General Appearance: mild distress, thin Respiratory: chest non-tender, no respiratory distress, decreased breath sounds , rales (b/l bases) Cardiovascular: normal peripheral pulses, regular rate, rhythm, no murmur Gastrointestinal: normal bowel sounds, non tender, soft Extremities: other (LLE s/p BKA dressing C/D/I w/ improved pain. 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 Escalate gabapentin. 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
[2016-10-30 08:57] LABS: BASO % 0.1 %; BASO ABS # 0.02 K/uL (0-0.2); COMPLETE YES; EOS % 0.1 %; HEMATOCRIT 29.2 % (42-52); LYMPH % 3.3 %; LYMPH ABS # 0.64 K/uL (1.2-3.4); MEAN CELL VOLUME 91.3 fL (80-100); MEAN CORPUSCULAR HEMOGLOBIN 29.1 pg (25-34); MEAN CORPUSCULAR HGB CONC 31.8 g/dl (32-36); MONO % 9.1 %; NEUT % 84.4 %; PLATELET COUNT 287 K/uL (130-400); WHITE BLOOD COUNT 19.45 K/uL (4.8-10.8)
[2016-10-30 08:58] LABS: BUN/CREATININE RATIO 16.5 (10-20); CREATININE 0.55 mg/dl (0.60-1.40); POTASSIUM 3.8 mmol/L (3.5-5.1)
[2016-10-30] MEDS: AMIODARONE 200 MG TAB PO SCH ×2 (10:24→21:23)
[2016-10-30] MEDS: PANTOprazole SOD 40 MG TAB PO SCH ×2 (10:25→21:29)
[2016-10-30] MEDS: METOPROLOL TARTRATE 25 MG TAB PO SCH ×2 (10:26→23:59)
[2016-10-30] MEDS: GABAPENTIN 100 MG CAP PO SCH ×4 (10:26→21:28)
[2016-10-30] MEDS: BOOST BREEZE NUTRITION DRINK 1 BOX PO SCH ×2 (10:27→16:30)
--- NOTE | 2016-10-30 11:09 | Cardiology Follow-Up ---
Subjective Subjective Date of Service: Oct 30, 2016. Pt evaluation today including: conversation w/ patient, physical exam, chart review, lab review, review of studies, review of inpatient medication list Additional Details: Reports productive cough, shortness of breath with any movement No chest pain. Continued pain at surgical site and right lower extremity. Problem List Medical Problems: (1) Atrial flutter with rapid ventricular response Status: Acute (2) Chest pain Status: Acute (3) Dizzy Status: Acute (4) Hypotension Status: Acute (5) Hypothyroid Status: Acute (6) Left chest pressure Status: Acute (7) Pulmonary embolism Status: Acute (8) Rapid atrial fibrillation Status: Acute Review of Systems Constitutional: No chills, No fever ENT: No hearing loss Respiratory: + cough, + hemoptysis, + sputum, No shortness of breath Cardiac: No PND, No chest pain, No edema, No orthopnea, No palpitations Abdomen: No GI bleeding, No nausea, No pain Musculoskeletal: + calf pain, + joint pain, No swelling Male : No dysuria, No hematuria Neurologic: No memory loss Heme: + clotting problems Endo: No excessive thirst, No excessive urination Skin: + new/changing skin lesions Objective Vital Signs Last Vital Signs Documentation Date Time Temp Pulse Resp B/P Pulse Ox O2 Delivery O2 Flow Rate FiO2 10/30/16 07:08 92 18 96 Nasal Cannula 5.0 10/30/16 04:14 37.9 117/58 10/29/16 07:37 50 Physical Exam: General Appearance: + cachetic, + pertinent finding (increased work of breathing) ENT: hearing grossly normal Neck: supple Respiratory/Chest: + decreased breath sounds Cardiovascular: regular rate, rhythm, no edema, no murmur Abdomen: normal bowel sounds, non tender, soft Extremities: no pedal edema, + pertinent finding (Dressing in place on right BKA. LLE rag cutting machine tender to light palpation) Neurologic/Psychiatric: alert, oriented x 3, + depressed affect Skin: warm/dry, + pertinent finding (Ischemic/necrotic left foot) Assessment and Plan 1. Paroxysmal atrial fibrillation -- remains on sinus rhythm on PO amiodarone, PO metoprolol; heparin restarted 2. Acute respiratory failure/PE/PNA 3. 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 Hypercoagulable state/? malignancy - hemodynamically stable, sinus rhythm maintained on amiodarone 400 mg PO BID - - continue until 11/02 before transition to 200mg BID x 1 month - continue PO metoprolol as BP allows - parenteral anticoagulation Continued [facility] stay due to: inadequate oral pain control, multiple IV medications needed Discharge planning: other Medications: Current Inpatient Medications Medications (Trade) Dose Ordered Sig/Malcolm Route Start Time Stop Time Status Last Admin Dose Admin Levothyroxine Sodium (Synthroid Tab) 225 mcg DAILYBB PO 10/18/16 08:30 11/17/16 08:29 10/30/16 05:41 225 MCG Nortriptyline HCl (Pamelor Cap) 10 mg HS PO 10/18/16 21:00 11/17/16 20:59 10/29/16 19:43 10 MG Miscellaneous Information (Order Awaiting Action) 1 ea QS N/A 10/18/16 08:00 11/17/16 07:59 Acetaminophen (Tylenol Tab) 650 mg Q4H PRN PO 10/18/16 06:45 11/17/16 06:44 10/21/16 05:23 650 MG Ondansetron HCl (Zofran Inj) 4 mg Q6H PRN IV 10/18/16 06:45 11/17/16 06:44 10/20/16 08:00 4 MG Glucose (Glucose 40% Gel) 15-30 GRAMS 15 GRAMS... UD PRN PO 10/21/16 14:45 11/20/16 14:44 Glucose (Glucose Chew Tab) 4-8 Tablets 4 Tabl... UD PRN PO 10/21/16 14:45 11/20/16 14:44 Dextrose (Dextrose 50% 50ML Syringe) 25-50ML OF 50% DW IV FOR... UD PRN IV 10/21/16 14:45 11/20/16 14:44 Glucagon 1 mg 1 mg UD PRN SQ 10/21/16 14:45 11/20/16 14:44 Heparin Sodium/ Dextrose (Heparin 25,000 Unit/500ml D5W) 500 ml @ 30 mls/hr [id number] PRN IV 10/21/16 23:45 11/20/16 23:44 10/28/16 23:15 30 MLS/HR Miscellaneous Information (Consult Glycemic Management Pharmacy) 1 ea UD PRN N/A 10/22/16 09:45 11/21/16 09:44 Heparin Sodium (Porcine) (Heparin 10 Unit/ ml 5 ml Flush) 5 ml PRN PRN FLUSH 10/23/16 00:15 11/22/16 00:14 Ipratropium [employer] (Atrovent 0.02% 0.5MG/2.5ML Neb) 0.5 mg Q6R INH 10/25/16 21:00 11/24/16 20:59 10/30/16 07:09 0.5 MG Levalbuterol (Xopenex 1.25MG/ 0.5ML Neb) 1.25 mg Q6R INH 10/25/16 21:00 11/24/16 20:59 10/30/16 07:09 1.25 MG Bisacodyl (Dulcolax Supp) 10 mg DAILY PRN FL 10/25/16 18:00 11/24/16 17:59 Pantoprazole Sodium (Protonix Tab) 40 mg BID PO 10/25/16 21:00 11/24/16 20:59 10/30/16 10:25 40 MG Amiodarone HCl (Cordarone Tab) 400 mg BID PO 10/26/16 21:00 11/02/16 21:01 10/30/16 10:24 400 MG Metoprolol Tartrate (Lopressor Tab) 12.5 mg BID PO 10/26/16 21:00 11/25/16 20:59 10/30/16 10:26 12.5 MG Amiodarone HCl (Cordarone Tab) 200 mg BID PO 11/03/16 09:00 12/03/16 08:59 Hydromorphone HCl (Dilaudid Inj) 0.5 mg Q3H PRN IV 10/27/16 10:15 11/10/16 10:14 10/30/16 01:42 0.5 MG Enteral Nutritional Formula (Boost Breeze Nutritional Drink) 1 box BIDM PO 10/27/16 16:30 11/26/16 16:29 10/29/16 16:14 1 BOX Gabapentin 100 mg 100 mg TID PO 10/29/16 14:00 11/28/16 13:59 10/30/16 10:26 100 MG Sodium Chloride (Nss 1000ml) 1,000 ml @ 50 mls/hr Q20H IV 10/29/16 12:00 11/28/16 11:59 10/30/16 05:41 50 MLS/HR Insulin Aspart (novoLOG ASPART) SLIDING SCALE BID@0645,2100 SC 10/29/16 21:00 11/28/16 20:59 Lab Results: 10/30/16 05:35 Red Blood Count 3.20, Mean Corpuscular Volume 91.3, Mean Corpuscular Hemoglobin 29.1, Mean Corpuscular Hemoglobin Concent 31.8, Mean Platelet Volume 10.0, Neutrophils (%) (Auto) 84.4, Lymphocytes (%) (Auto) 3.3, Monocytes (%) (Auto) 9.1, Eosinophils (%) (Auto) 0.1, Basophils (%) (Auto) 0.1, Neutrophils # (Auto) 16.42, Lymphocytes # (Auto) 0.64, Monocytes # (Auto) 1.77, Eosinophils # (Auto) 0.01, Basophils # (Auto) 0.02 10/30/16 05:35 Test 10/30/16 05:35 White Blood Count 19.45 K/uL (4.8-10.8) Red Blood Count 3.20 M/uL (4.7-6.1) Hemoglobin 9.3 g/dL (14.0-18.0) Hematocrit 29.2 % (42-52) Mean Corpuscular Volume 91.3 fL (80-100) Mean Corpuscular Hemoglobin 29.1 pg (25-34) Mean Corpuscular Hemoglobin Concent 31.8 g/dl (32-36) Platelet Count 287 K/uL (130-400) Mean Platelet Volume 10.0 fL (7.4-10.4) Neutrophils (%) (Auto) 84.4 % Lymphocytes (%) (Auto) 3.3 % Monocytes (%) (Auto) 9.1 % Eosinophils (%) (Auto) 0.1 % Basophils (%) (Auto) 0.1 % Neutrophils # (Auto) 16.42 K/uL (1.4-6.5) Lymphocytes # (Auto) 0.64 K/uL (1.2-3.4) Monocytes # (Auto) 1.77 K/uL (0.11-0.59) Eosinophils # (Auto) 0.01 K/uL (0-0.5) Basophils # (Auto) 0.02 K/uL (0-0.2) RDW Standard Deviation 54.0 fL (36.4-46.3) RDW Coefficient of Variation 16.3 % (11.5-14.5) Immature Granulocyte % (Auto) 3.0 % Immature Granulocyte # (Auto) 0.59 K/uL (0.00-0.02) Activated Partial Thromboplast Time 56.9 SECONDS (21.0-31.0) Partial Thromboplastin Ratio 2.2 Anion Gap 8.0 mmol/L (3-11) Est Creatinine Clear Calc Drug Dose 110.2 ml/min Estimated GFR () 124.1 Estimated GFR (Non- 107.1 BUN/Creatinine Ratio 16.5 (10-20) Bedside Glucose 111 mg/dl (70-99) Calcium Level 8.0 mg/dl (8.5-10.1)
--- NOTE | 2016-10-30 11:15 | Progress Note ---
Progress Note Date of Service: Oct 30, 2016. Subjective 70 yo m POD #2 after LLE BKA. Pt states feeling ok, denies any complaints. Problem List Medical Problems: (1) Atrial flutter with rapid ventricular response Status: Acute (2) Chest pain Status: Acute (3) Dizzy Status: Acute (4) Hypotension Status: Acute (5) Hypothyroid Status: Acute (6) Left chest pressure Status: Acute (7) Pulmonary embolism Status: Acute (8) Rapid atrial fibrillation Status: Acute Objective Vital Signs Vital Signs Past 12 Hours Date Time Temp Pulse Resp B/P Pulse Ox O2 Delivery O2 Flow Rate FiO2 10/30/16 07:08 92 18 96 Nasal Cannula 5.0 10/30/16 04:14 37.9 94 22 117/58 92 Nasal Cannula 5.0 10/30/16 04:00 93 Nasal Cannula 5.0 10/30/16 01:46 86 18 94 Nasal Cannula 5.0 10/29/16 23:59 93 Nasal Cannula 5.0 10/29/16 23:59 37.1 87 18 105/58 93 Nasal Cannula 5.0 Exam CONST: A&Ox4, NAD, chronically ill appearing male EXT: LLE BKA site C/D/I with avelino. No significant edema. No erythema. + local tenderness. Minimal bloody drainage on dressing. Fully extends. Intake & Output 8-Hour Column 10/29/16 10/30/16 10/30/16 16:00 00:00 08:00 Intake Total 1250 ml 795 ml 703 ml Output Total 900 ml 1250 ml 1000 ml Balance 350 ml -455 ml -297 ml 24-Hour Column 10/30/16 08:00 Intake Total 2748 ml Output Total 3150 ml Balance -402 ml Laboratory and Microbiology Results Past 24 Hours Test 10/29/16 11:25 10/29/16 16:12 10/29/16 19:58 10/30/16 05:35 Range/Units Bedside Glucose 126 124 108 111 70-99 mg/dl White Blood Count 19.45 4.8-10.8 K/uL Red Blood Count 3.20 4.7-6.1 M/uL Hemoglobin 9.3 14.0-18.0 g/dL Hematocrit 29.2 42-52 % Mean Corpuscular Volume 91.3 80-100 fL Mean Corpuscular Hemoglobin 29.1 25-34 pg Mean Corpuscular Hemoglobin Concent 31.8 32-36 g/dl Platelet Count 287 130-400 K/uL Mean Platelet Volume 10.0 7.4-10.4 fL Neutrophils (%) (Auto) 84.4 % Lymphocytes (%) (Auto) 3.3 % Monocytes (%) (Auto) 9.1 % Eosinophils (%) (Auto) 0.1 % Basophils (%) (Auto) 0.1 % Neutrophils # (Auto) 16.42 1.4-6.5 K/uL Lymphocytes # (Auto) 0.64 1.2-3.4 K/uL Monocytes # (Auto) 1.77 0.11-0.59 K/uL Eosinophils # (Auto) 0.01 0-0.5 K/uL Basophils # (Auto) 0.02 0-0.2 K/uL RDW Standard Deviation 54.0 36.4-46.3 fL RDW Coefficient of Variation 16.3 11.5-14.5 % Immature Granulocyte % (Auto) 3.0 % Immature Granulocyte # (Auto) 0.59 0.00-0.02 K/uL Activated Partial Thromboplast Time 56.9 21.0-31.0 SECONDS Partial Thromboplastin Ratio 2.2 Sodium Level 140 136-145 mmol/L Potassium Level 3.8 3.5-5.1 mmol/L Chloride Level 102 98-107 mmol/L Carbon Dioxide Level 30 21-32 mmol/L Anion Gap 8.0 3-11 mmol/L Blood Urea Nitrogen 9 7-18 mg/dl Creatinine 0.55 0.60-1.40 mg/dl Est Creatinine Clear Calc Drug Dose 110.2 ml/min Estimated GFR () 124.1 Estimated GFR (Non- 107.1 BUN/Creatinine Ratio 16.5 10-20 Random Glucose 109 70-99 mg/dl Calcium Level 8.0 8.5-10.1 mg/dl ASSESSMENT and PLAN: s/p LLE BKA Pt doing well post op. Dry dressing if drainage occurs.
[2016-10-30] MEDS ORDERED: hydrOXYzine HCL 10 MG TAB PO ONE (21:00)
[2016-10-30] MEDS: NORTRIPTYLINE HCL 10 MG CAP PO SCH (21:28)
[2016-10-30] MEDS ORDERED: CHOLESTYRAMINE LIGHT 4 GM PKT PO ONE (22:00)
[2016-10-31] VITALS (14 sets, daily range): BP systolic 104–116; BP diastolic 51–71; PULSE 79–103; TEMP 36.7–37.3; O2SAT 87–98
[2016-10-31] MEDS: INSULIN ASPART 100 UNITS/ML 3 ML PEN SC SCH ×3 (00:01→21:00)
[2016-10-31] MEDS: HYDROmorphone INJ 0.5 MG/0.5 ML SYR IV PRN ×2 (00:02→08:39)
[2016-10-31] MEDS: LEVALBUTEROL 1.25MG/0.5ML NEB INH SCH ×3 (02:14→15:26)
[2016-10-31] MEDS: IPRATROPIUM BROMIDE NEB SOLN 0.02% 2.5 ML VIAL INH SCH ×3 (02:15→15:26)
[2016-10-31] MEDS: SODIUM CHLORIDE 0.9% 1000ML 1,000 ML IV SCH ×4 (04:34→19:30)
[2016-10-31] MEDS: HEPARIN 25,000 UNIT/500ML D5W 500 ML IV PRN ×2 (04:36→22:31)
[2016-10-31] MEDS: LEVOTHYROXINE 75 MCG TAB PO SCH (06:23)
[2016-10-31 06:30] LABS: BASO % 0.1 %; BASO ABS # 0.02 K/uL (0-0.2); COMPLETE YES; EOS % 0.1 %; HEMATOCRIT 28.1 % (42-52); IG% 3.2 %; LYMPH % 4.5 %; LYMPH ABS # 0.72 K/uL (1.2-3.4); MEAN CELL VOLUME 90.9 fL (80-100); MEAN CORPUSCULAR HEMOGLOBIN 29.4 pg (25-34); MEAN CORPUSCULAR HGB CONC 32.4 g/dl (32-36); MEAN PLATELET VOLUME 9.4 fL (7.4-10.4); MONO % 11.2 %; NEUT % 80.9 %; PLATELET COUNT 268 K/uL (130-400); RED BLOOD COUNT 3.09 M/uL (4.7-6.1); WHITE BLOOD COUNT 16.04 K/uL (4.8-10.8)
[2016-10-31 07:11] LABS: BUN/CREATININE RATIO 16.4 (10-20); CREATININE 0.59 mg/dl (0.60-1.40); POTASSIUM 2.9 mmol/L (3.5-5.1)
[2016-10-31] MEDS: BOOST BREEZE NUTRITION DRINK 1 BOX PO SCH ×2 (07:15→16:45)
--- NOTE | 2016-10-31 07:32 | Family Medicine Progress Note ---
Progress Note Date of Service Oct 31, 2016. Subjective Pt evaluation today including: conversation w/ patient, physical exam, chart review, lab review Patient had some desats this morning, requiring increased oxygen. They were likely due to mucous plugging, as with position changes and coughing, there was improved saturation and his oxygen was weaned back down as appropriate. He is now breathing comfortably with oxygen support via NC and has occasional hemoptysis with coughing. He otherwise denies chest pain and dyspnea. He has had fewer, but ongoing episodes of diarrhea, but denies abdominal pain or significant thirst. He requests Imodium use for relief. His other main complaint remains back pain from lying in bed and lower extremity pain, particularly at the incision site. There remains mirrored pain in the right leg , and both are highly sensitive to touch and movement. He is requiring infrequent doses of Dilaudid to control the pain. Constitutional: No fever, No sweats Respiratory: + cough, + sputum, No shortness of breath Cardiovascular: No chest pain, No edema, No palpitations Abdomen: + diarrhea, No nausea, No pain, No vomiting Objective Vital Signs Date Time Temp Pulse Resp B/P Pulse Ox O2 Delivery O2 Flow Rate FiO2 10/31/16 04:47 36.9 96 27 104/58 87 Nasal Cannula 5.0 10/31/16 04:43 93 Nasal Cannula 5.0 10/31/16 02:15 80 16 95 Nasal Cannula 5.0 10/31/16 00:29 93 Nasal Cannula 5.0 10/31/16 00:01 36.9 89 25 109/71 92 Nasal Cannula 5.0 10/30/16 22:00 90 32 110/67 90 Nasal Cannula 5.0 10/30/16 20:16 91 Nasal Cannula 5.0 10/30/16 20:00 36.9 90 22 108/61 100 Nasal Cannula 5.0 10/30/16 19:30 82 18 96 Nasal Cannula 5.0 10/30/16 18:00 98 25 95/56 93 10/30/16 16:29 91 Nasal Cannula 5.0 10/30/16 16:00 36.8 84 20 86/56 91 Nasal Cannula 5.0 10/30/16 15:36 85 20 86/56 10/30/16 14:09 82 18 96 Nasal Cannula 5.0 10/30/16 08:00 102 20 114/60 92 Nasal Cannula 5.0 102 Physical Exam General Appearance: WD/WN, no apparent distress Eyes: normal inspection ENT: hearing grossly normal Neck: supple, no adenopathy Respiratory/Chest: lungs clear, normal breath sounds, no respiratory distress, no accessory muscle use Cardiovascular: regular rate, rhythm, no murmur Abdomen: normal bowel sounds, non tender, soft Extremities: no pedal edema, no calf tenderness, + pertinent finding ( Ambutation below left knee, wrapped in bandage) Neurologic/Psychiatric: alert, normal mood/affect, oriented x 3 Skin: normal color, warm/dry, no rash Laboratory Results Results Past 24 Hours Test 10/30/16 19:45 10/30/16 21:00 10/30/16 21:30 10/31/16 06:15 Range/Units Immunoglobulin A 131.0 70-400 mg/dL HIV (1&2) Ab and P24 Ag, 4th Gener NEG NEG Bedside Glucose 94 70-99 mg/dl White Blood Count 16.04 4.8-10.8 K/uL Red Blood Count 3.09 4.7-6.1 M/uL Hemoglobin 9.1 14.0-18.0 g/dL Hematocrit 28.1 42-52 % Mean Corpuscular Volume 90.9 80-100 fL Mean Corpuscular Hemoglobin 29.4 25-34 pg Mean Corpuscular Hemoglobin Concent 32.4 32-36 g/dl Platelet Count 268 130-400 K/uL Mean Platelet Volume 9.4 7.4-10.4 fL Neutrophils (%) (Auto) 80.9 % Lymphocytes (%) (Auto) 4.5 % Monocytes (%) (Auto) 11.2 % Eosinophils (%) (Auto) 0.1 % Basophils (%) (Auto) 0.1 % Neutrophils # (Auto) 12.96 1.4-6.5 K/uL Lymphocytes # (Auto) 0.72 1.2-3.4 K/uL Monocytes # (Auto) 1.80 0.11-0.59 K/uL Eosinophils # (Auto) 0.02 0-0.5 K/uL Basophils # (Auto) 0.02 0-0.2 K/uL RDW Standard Deviation 53.5 36.4-46.3 fL RDW Coefficient of Variation 16.3 11.5-14.5 % Immature Granulocyte % (Auto) 3.2 % Immature Granulocyte # (Auto) 0.52 0.00-0.02 K/uL Activated Partial Thromboplast Time 52.5 21.0-31.0 SECONDS Partial Thromboplastin Ratio 2.0 Sodium Level 141 136-145 mmol/L Potassium Level 2.9 3.5-5.1 mmol/L Chloride Level 103 98-107 mmol/L Carbon Dioxide Level 30 21-32 mmol/L Anion Gap 8.0 3-11 mmol/L Blood Urea Nitrogen 10 7-18 mg/dl Creatinine 0.59 0.60-1.40 mg/dl Est Creatinine Clear Calc Drug Dose 105.6 ml/min Estimated GFR () 120.6 Estimated GFR (Non- 104.0 BUN/Creatinine Ratio 16.4 10-20 Random Glucose 107 70-99 mg/dl Calcium Level 8.0 8.5-10.1 mg/dl Test 10/31/16 11:44 Range/Units Bedside Glucose 112 70-99 mg/dl Assessment and Plan 70 year old male prisoner with h/o of smoking, permanent a.flutter on warfarin, COPD, p/w SOB, cough, hemoptysis found to have LLL consolidation on CXR, multiple PE's on CTA, in addition to acute occlusion of the left popliteal artery s/p embolectomy x2 despite warfarin use. IVF inserted 10/20/16. BKA performed on 10/28/16. Patient has history of rectal SCC s/p chemo-radiation therapy Left below knee amputation - due to lower extremity artery occlusion with unsuccessful repeat surgical revascularization of the left leg - Pain management changed to PO oxycodone and PO Gabapentin - can titrate gabapentin dose tomorrow - Ongoing OT/PT rehabilitation - Frequent repositioning and pillows to prevent sacral/ heel ulcers Diarrhea - frequency decreasing. Nonobstructive bowel pattern on AXR. No C.diff or stool leuks. HIV negative. IGA in normal range. - Stool culture, O&P results pending. - Gentle hydration + PO Imodium Intermittent respiratory distress - acute hypoxic resp failure resolved. LLL Consolidation s/p antibiotic treatment. Blood cultures are negative. Desaturation suspected to be due to mucus plugs LLL s/p bronchoscopy (10/23, 10/25 ), with suction. Bronchial washings negative for growth, MRSA swab negative - Continue oxygen support via NC to maintain sats > 92% - not attempting to wean - Continue Atrovent and Xopenex nebulizers - Continue Flutter valve, chest physiotherapy and incentive spirometry Afib/Flutter restarting on 10/21/16 - Last ECHO in Jul 2016 showed Normal EF and mitral valve calcification - Metoprolol 12.5mg BID for rate control, and Heparin for anticoagulation - Amiodarone changed to PO 400mg x 1 week, then 200mg as of 11/03/16, as per cardiology Pulmonary Embolism - IVC filter placed due to failure of anticoagulation on Coumadin. DVT in the left lower extremity (popliteal and peroneal veins). - Continue Heparin drip for anticoagulation. - Monitor H/H Hypercoagulable State suspicious for Malignancy - DVT / PE despite supratherapeutic INR. CTA revealed prominent mediastinal and hilar nodes - upon Dr. Casillas's review there might have been adenopathy extended two years prior on previous imagining, LLL consolidation is a new finding. H/o rectal SCC s/p chemo/rad Hypotension -BP stable T2DM - glycemic consult Hypothyroid - TSH and T4 normal in Fe. - Continue Synthroid 225mcg DVT/GI Prophylaxis - Continue heparin drip, pantoprazole PO 40mg Dispo - Code status: full resuscitation, provided the efforts are not futile and there is potential to maintain some aspect of quality of life on recovery - No plans to wean off oxygen thus not able to return to group home. Will need placement at [facility] - Need plans from oncology regarding followup/treatment/management plans, if any Resident Physician Supervision Note: I was present with Dr. Velazquez during the history and exam. I discussed the case with the resident and agree with the findings and plan as documented in the note. Any exceptions or clarifications are listed here: Upon my exam, the patient's only complaint was the loose stool. At this point, with appropriate stool cultures collected, it is reasonable to start Imodium for symptom control. Also agree with titration of gabapentin for pain control; discontinue Dilaudid IV and add oral oxycodone PRN. Documented By: Jeffry Campbell Continued [facility] stay due to: inadequate oral pain control Discharge planning: other Resident Tracking Resident Involvement: Resident Care Provided Care Provided: Adult Hospital Medicine
[2016-10-31] MEDS: METOPROLOL TARTRATE 25 MG TAB PO SCH ×2 (08:16→22:24)
[2016-10-31] MEDS: AMIODARONE 200 MG TAB PO SCH ×2 (08:16→22:26)
[2016-10-31] MEDS: PANTOprazole SOD 40 MG TAB PO SCH ×2 (08:17→22:29)
[2016-10-31] MEDS: GABAPENTIN 100 MG CAP PO SCH ×4 (08:17→22:25)
[2016-10-31] MEDS ORDERED: NURSING VERBAL MED ORDER ONE (08:45)
[2016-10-31] MEDS ORDERED: SODIUM CHLORIDE 0.9% 250ML 250 ML IV SCH (09:15)
[2016-10-31] MEDS: CHOLESTYRAMINE LIGHT 4 GM PKT PO SCH ×2 (09:41→22:31)
[2016-10-31] MEDS ORDERED: POTASSIUM CHLR 20MEQ / WTR IV ONE (10:00)
[2016-10-31] MEDS: GUAIFENESIN 200 MG TAB PO PRN (10:20)
[2016-10-31] MEDS ORDERED: LOPERAMIDE HCL 2 MG CAP PO PRN (14:45)
[2016-10-31] MEDS: NORTRIPTYLINE HCL 10 MG CAP PO SCH (21:00)
[2016-10-31] MEDS: OXYCODONE HCL IR 5 MG TAB (IMMEDIATE RELEASE) PO PRN (23:58)
[2016-11-01] VITALS (13 sets, daily range): BP systolic 92–102; BP diastolic 45–67; PULSE 73–94; TEMP 36.8–37.4; O2SAT 84–97
[2016-11-01] MEDS: SODIUM CHLORIDE 0.9% 1000ML 1,000 ML IV SCH ×3 (00:30→18:35)
[2016-11-01] MEDS: IPRATROPIUM BROMIDE NEB SOLN 0.02% 2.5 ML VIAL INH SCH ×4 (02:43→19:45)
[2016-11-01] MEDS: LEVALBUTEROL 1.25MG/0.5ML NEB INH SCH ×4 (02:43→19:45)
[2016-11-01] MEDS: LEVOTHYROXINE 75 MCG TAB PO SCH (06:42)
[2016-11-01 07:14] LABS: BASO % 0.1 %; BASO ABS # 0.02 K/uL (0-0.2); EOS % 0.3 %; HEMATOCRIT 27.8 % (42-52); IG% 2.4 %; LYMPH % 5.1 %; LYMPH ABS # 0.73 K/uL (1.2-3.4); MEAN CELL VOLUME 91.7 fL (80-100); MEAN CORPUSCULAR HEMOGLOBIN 29.4 pg (25-34); MONO % 10.1 %; PLATELET COUNT 273 K/uL (130-400); RED BLOOD COUNT 3.03 M/uL (4.7-6.1); WHITE BLOOD COUNT 14.29 K/uL (4.8-10.8)
[2016-11-01] MEDS: BOOST BREEZE NUTRITION DRINK 1 BOX PO SCH ×2 (07:30→16:55)
[2016-11-01 07:41] LABS: BUN/CREATININE RATIO 21.5 (10-20); CALCIUM 8.1 mg/dl (8.5-10.1); CREATININE 0.43 mg/dl (0.60-1.40); PARTIAL THROMBOPLASTIN RATIO 2.4; POTASSIUM 2.8 mmol/L (3.5-5.1)
[2016-11-01 07:54] LABS: COMPLETE YES; POLYCHROMASIA 1+
--- NOTE | 2016-11-01 08:09 | Family Medicine Progress Note ---
Progress Note Date of Service Nov 01, 2016. Subjective Pt evaluation today including: conversation w/ patient, physical exam, chart review, lab review Voiding: hopson catheter in place Patient denies overnight events and is currently breathing comfortably with 5L oxygen via nasal cannula. He says he feels tired today, and wants to just relax. He denies chest pain and dyspnea. He was given some cholestyramine resin and subsequently only has had had one bowel movement, and it wasn't loose. He denies abdominal pain, but does state that he feels thirsty. His pain is improved. He has only requested oxycodone once in 24 hours, for pain predominantly at the incision site. He states that pain mirrored in the right leg is diminished, but the sensitivity to touch and movement bilaterally has diminished. Constitutional: + fatigue, No fever, No sweats Respiratory: + cough, + sputum, No shortness of breath Cardiovascular: No chest pain, No edema, No palpitations Abdomen: No diarrhea, No nausea, No pain, No vomiting Musculoskeletal: + muscle pain Objective Vital Signs Date Time Temp Pulse Resp B/P Pulse Ox O2 Delivery O2 Flow Rate FiO2 11/01/16 07:18 82 16 91 Nasal Cannula 4.0 11/01/16 04:00 Nasal Cannula 5.0 11/01/16 03:57 37.3 86 23 102/67 92 Nasal Cannula 4.0 11/01/16 02:43 80 16 97 Nasal Cannula 5.0 10/31/16 23:59 Nasal Cannula 5.0 10/31/16 23:36 37.0 86 23 116/65 96 Nasal Cannula 5.0 10/31/16 21:00 84 18 93 Nasal Cannula 6.0 10/31/16 20:00 Nasal Cannula 5.0 10/31/16 19:50 37.1 89 20 107/63 93 Nasal Cannula 6.0 10/31/16 16:10 36.9 86 20 105/56 93 Mask 6.0 10/31/16 16:00 Nasal Cannula 5.0 10/31/16 15:25 84 18 93 Nasal Cannula 6.0 10/31/16 12:00 Nasal Cannula 5.0 10/31/16 12:00 36.7 88 22 110/51 92 Nasal Cannula 5.0 10/31/16 10:45 37.3 79 22 104/54 98 Mask 8.0 10/31/16 08:00 99 18 87 Nasal Cannula 6.0 Physical Exam General Appearance: WD/WN, no apparent distress Eyes: normal inspection ENT: hearing grossly normal Neck: supple, no adenopathy Respiratory/Chest: no respiratory distress, no accessory muscle use, + decreased breath sounds (Course breath sounds) Cardiovascular: regular rate, rhythm, no murmur Abdomen: normal bowel sounds, non tender, soft Extremities: no pedal edema, no calf tenderness, + pertinent finding (Left below knee amputation wrapped in bandage, no obvious bleeding or oozing. Right side of graphite pan drier tender to touch) Neurologic/Psychiatric: alert, normal mood/affect, oriented x 3 Skin: normal color, warm/dry, no rash Laboratory Results Results Past 24 Hours Test 10/31/16 11:44 10/31/16 16:44 10/31/16 20:50 10/31/16 22:21 Range/Units Bedside Glucose 112 109 107 104 70-99 mg/dl Test 11/01/16 06:40 11/01/16 06:42 Range/Units White Blood Count 14.29 4.8-10.8 K/uL Red Blood Count 3.03 4.7-6.1 M/uL Hemoglobin 8.9 14.0-18.0 g/dL Hematocrit 27.8 42-52 % Mean Corpuscular Volume 91.7 80-100 fL Mean Corpuscular Hemoglobin 29.4 25-34 pg Mean Corpuscular Hemoglobin Concent 32.0 32-36 g/dl Platelet Count 273 130-400 K/uL Mean Platelet Volume 10.0 7.4-10.4 fL Neutrophils (%) (Auto) 82.0 % Lymphocytes (%) (Auto) 5.1 % Monocytes (%) (Auto) 10.1 % Eosinophils (%) (Auto) 0.3 % Basophils (%) (Auto) 0.1 % Neutrophils # (Auto) 11.70 1.4-6.5 K/uL Lymphocytes # (Auto) 0.73 1.2-3.4 K/uL Monocytes # (Auto) 1.44 0.11-0.59 K/uL Eosinophils # (Auto) 0.05 0-0.5 K/uL Basophils # (Auto) 0.02 0-0.2 K/uL RDW Standard Deviation 54.8 36.4-46.3 fL RDW Coefficient of Variation 16.5 11.5-14.5 % Immature Granulocyte % (Auto) 2.4 % Immature Granulocyte # (Auto) 0.35 0.00-0.02 K/uL Polychromasia 1+ Activated Partial Thromboplast Time 61.5 21.0-31.0 SECONDS Partial Thromboplastin Ratio 2.4 Sodium Level 142 136-145 mmol/L Potassium Level 2.8 3.5-5.1 mmol/L Chloride Level 104 98-107 mmol/L Carbon Dioxide Level 30 21-32 mmol/L Anion Gap 8.0 3-11 mmol/L Blood Urea Nitrogen 9 7-18 mg/dl Creatinine 0.43 0.60-1.40 mg/dl Est Creatinine Clear Calc Drug Dose 134.7 ml/min Estimated GFR () 137.3 Estimated GFR (Non- 118.5 BUN/Creatinine Ratio 21.5 10-20 Random Glucose 101 70-99 mg/dl Calcium Level 8.1 8.5-10.1 mg/dl Phosphorus Level 2.7 2.5-4.9 mg/dl Magnesium Level 2.1 1.8-2.4 mg/dl Bedside Glucose 100 70-99 mg/dl Assessment and Plan 70 year old male prisoner with h/o of smoking, permanent a.flutter on warfarin, COPD, p/w SOB, cough, hemoptysis found to have LLL consolidation on CXR, multiple PE's on CTA, in addition to acute occlusion of the left popliteal artery s/p embolectomy x2 despite warfarin use. IVF inserted 10/20/16. BKA performed on 10/28/16. Patient has history of rectal SCC s/p chemo-radiation therapy Left below knee amputation - due to lower extremity artery occlusion with unsuccessful repeat surgical revascularization of the left leg - Pain management changed to PO oxycodone and PO Gabapentin titrated to 300 TID - Ongoing OT/PT rehabilitation - Frequent repositioning and pillows to prevent sacral/ heel ulcers Diarrhea - frequency decreasing. Nonobstructive bowel pattern on AXR. No C.diff or stool leuks. Stool culture negative. HIV negative. IGA in normal range. 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 - Gentle hydration, cholestyramine resin or Imodium PRN - IV K+ replacement after Mg+/PO4+ confirmed to be in normal range, and schedule KCl ordered - monitor BMP and discontinue once appropriate Intermittent respiratory distress - acute hypoxic resp failure resolved. LLL Consolidation s/p antibiotic treatment. Blood cultures are negative. Desaturation suspected to be due to mucus plugs LLL s/p bronchoscopy (10/23, 10/25 ), with suction. Bronchial washings negative for growth, MRSA swab negative - Continue oxygen support via NC to maintain sats > 92% - not attempting to wean - Continue Atrovent and Xopenex nebulizers - Continue Flutter valve, chest physiotherapy and incentive spirometry Rate-controlled Afib/Flutter restarting on 10/21/16 - Last ECHO in Jul 2016 showed Normal EF and mitral valve calcification - Metoprolol 12.5mg BID for rate control, and Heparin for anticoagulation - Amiodarone changed to PO 400mg x 1 week, then 200mg as of 11/03/16, as per cardiology Pulmonary Embolism - IVC filter placed due to failure of anticoagulation on Coumadin. DVT in the left lower extremity (popliteal and peroneal veins). - Continue Heparin drip for anticoagulation. Consider switching to Lovenox Wednesday - Monitor H/H Hypercoagulable State suspicious for Malignancy - DVT / PE despite supratherapeutic INR. CTA revealed prominent mediastinal and hilar nodes - upon Dr. Casillas's review there might have been adenopathy extended two years prior on previous imagining, LLL consolidation is a new finding. H/o rectal SCC s/p chemo/rad - Discuss intermodal customer service management plans re: followup/treatment plans, if any, with Dr. Casillas Wednesday Hypotension -BP stable Hypothyroid - TSH and T4 normal in Sep. - Continue Synthroid 225mcg Diabetes - HbA1c 6.1 (pre-diabetic), sugars exacerbated by stress and steroid administration. Glycemic consult - Cancel BID glucose checks and insulin, as sugars normalized post completion of steroid therapy DVT/GI Prophylaxis - Continue heparin drip, pantoprazole PO 40mg Dispo - Code status: full resuscitation, provided the efforts are not futile and there is potential to maintain some aspect of quality of life on recovery - No plans to wean off oxygen thus not able to return to same longterm. Will need placement at [facility] if he needs oxygen at discharge. Resident Physician Supervision Note: I was present with Dr. Velazquez during the history and exam. I discussed the case with the resident and agree with the findings and plan as documented in the note. The loose stool is less today. The patient tells me today that he has had this intermittently for about a decade. Continue to replete potassium. Given is A-Fib is rate controlled, he is stable to transfer to the floor. Documented By: Jeffry Campbell Continued [facility] stay due to: inadequate oral pain control, ambulation difficulties Discharge planning: other Resident Tracking Resident Involvement: Resident Care Provided Care Provided: Adult Hospital Medicine
[2016-11-01 08:45] LABS: MAGNESIUM 2.1 mg/dl (1.8-2.4); PHOSPHORUS 2.7 mg/dl (2.5-4.9)
[2016-11-01] MEDS: INSULIN ASPART 100 UNITS/ML 3 ML PEN SC SCH (08:51)
[2016-11-01] MEDS: AMIODARONE 200 MG TAB PO SCH ×2 (08:53→20:18)
[2016-11-01] MEDS: METOPROLOL TARTRATE 25 MG TAB PO SCH ×2 (08:54→22:19)
[2016-11-01] MEDS: GABAPENTIN 100 MG CAP PO SCH ×2 (08:55→13:04)
[2016-11-01] MEDS: PANTOprazole SOD 40 MG TAB PO SCH ×2 (08:56→20:15)
[2016-11-01] MEDS ORDERED: SODIUM CHLORIDE 0.9% 250ML 250 ML IV ONE (11:00)
[2016-11-01] MEDS ORDERED: POTASSIUM CHLR 20 MEQ / WTR 20 MEQ in PREMIXED WATER 100 ML IV ONE (11:15)
[2016-11-01] MEDS: CHOLESTYRAMINE LIGHT 4 GM PKT PO SCH ×2 (11:33→20:16)
--- NOTE | 2016-11-01 15:03 | Pharmacy Progress Note ---
Glycemic: Assessment & Plan Date of Service Nov 01, 2016. Assessment & Plan Assessment * Patient with pre-diabetes per HbA1c * Patient has received 1 unit of insulin in the last week with BSG's almost uniformly 100-130 mg/dL Plan * Discontinue insulin * Pharmacy will sign-off at time time * Please note that the plan above was derived based on current level of insulin resistance and hospital stress. These recommendations are appropriate for inpatient admission only. Plan of care upon discharge will need to be reassessed to avoid potential outpatient hypo/hyperglycemia.
[2016-11-01] MEDS: OXYCODONE HCL IR 5 MG TAB (IMMEDIATE RELEASE) PO PRN (16:42)
[2016-11-01 17:21] LABS: CALCIUM 7.8 mg/dl (8.5-10.1); CREATININE 0.48 mg/dl (0.60-1.40)
[2016-11-01] MEDS: POTASSIUM CHLR 10 MEQ / WTR 10 MEQ in PREMIXED WATER 100 ML IV SCH ×2 (19:48→20:56)
[2016-11-01] MEDS: POTASSIUM CHLORIDE 20 MEQ TABCR PO SCH (20:12)
[2016-11-01] MEDS: GABAPENTIN 300 MG CAP PO SCH (20:14)
[2016-11-01] MEDS: NORTRIPTYLINE HCL 10 MG CAP PO SCH (20:15)
[2016-11-01] MEDS: HEPARIN 25,000 UNIT/500ML D5W 500 ML IV PRN (23:07)
[2016-11-02] VITALS (10 sets, daily range): BP systolic 95–102; BP diastolic 49–58; PULSE 81–88; TEMP 36.9–37.2; O2SAT 89–97
[2016-11-02] MEDS: LEVALBUTEROL 1.25MG/0.5ML NEB INH SCH ×4 (00:27→20:23)
[2016-11-02] MEDS: IPRATROPIUM BROMIDE NEB SOLN 0.02% 2.5 ML VIAL INH SCH ×4 (00:27→20:23)
[2016-11-02] MEDS: HEPARIN 25,000 UNIT/500ML D5W 500 ML IV PRN ×4 (06:07→23:12)
[2016-11-02] MEDS: LEVOTHYROXINE 75 MCG TAB PO SCH (06:08)
[2016-11-02] MEDS: OXYCODONE HCL IR 5 MG TAB (IMMEDIATE RELEASE) PO PRN ×3 (06:10→22:51)
[2016-11-02 06:52] LABS: BASO % 0.1 %; BASO ABS # 0.02 K/uL (0-0.2); EOS % 0.2 %; HEMATOCRIT 27.6 % (42-52); IG% 2.8 %; LYMPH % 5.6 %; MEAN CELL VOLUME 90.2 fL (80-100); MEAN CORPUSCULAR HEMOGLOBIN 29.1 pg (25-34); MEAN CORPUSCULAR HGB CONC 32.2 g/dl (32-36); MEAN PLATELET VOLUME 9.9 fL (7.4-10.4); MONO % 10.7 %; NEUT % 80.6 %; PLATELET COUNT 259 K/uL (130-400); RED BLOOD COUNT 3.06 M/uL (4.7-6.1); WHITE BLOOD COUNT 14.16 K/uL (4.8-10.8)
[2016-11-02 07:15] LABS: COMPLETE YES; POLYCHROMASIA 1+
[2016-11-02 07:24] LABS: BUN/CREATININE RATIO 17.2 (10-20); CALCIUM 7.9 mg/dl (8.5-10.1); CREATININE 0.5 mg/dl (0.60-1.40); POTASSIUM 3.4 mmol/L (3.5-5.1)
[2016-11-02 08:09] LABS: PARTIAL THROMBOPLASTIN RATIO 2.1
[2016-11-02] MEDS: GABAPENTIN 300 MG CAP PO SCH ×3 (08:27→21:36)
[2016-11-02] MEDS: PANTOprazole SOD 40 MG TAB PO SCH ×2 (08:27→21:35)
[2016-11-02] MEDS: POTASSIUM CHLORIDE 20 MEQ TABCR PO SCH ×2 (08:27→21:36)
[2016-11-02] MEDS: AMIODARONE 200 MG TAB PO SCH ×2 (08:28→21:36)
[2016-11-02] MEDS: METOPROLOL TARTRATE 25 MG TAB PO SCH ×2 (08:32→21:35)
[2016-11-02] MEDS: BOOST BREEZE NUTRITION DRINK 1 BOX PO SCH ×2 (09:07→17:06)
[2016-11-02] MEDS: CHOLESTYRAMINE LIGHT 4 GM PKT PO SCH ×2 (09:07→21:37)
--- NOTE | 2016-11-02 09:42 | Progress Note ---
Progress Note Date of Service: Nov 02, 2016. Subjective 70 yo m with multiple medical problems, POD # 5 after LLE BKA, seen in f/u today. Pt denies any complaints. Problem List Medical Problems: (1) Atrial flutter with rapid ventricular response Status: Acute (2) Chest pain Status: Acute (3) Dizzy Status: Acute (4) Hypotension Status: Acute (5) Hypothyroid Status: Acute (6) Left chest pressure Status: Acute (7) Pulmonary embolism Status: Acute (8) Rapid atrial fibrillation Status: Acute Objective Vital Signs Vital Signs Past 12 Hours Date Time Temp Pulse Resp B/P Pulse Ox O2 Delivery O2 Flow Rate FiO2 11/02/16 08:16 85 18 97 Nasal Cannula 5.0 11/02/16 07:40 37.0 83 18 102/58 94 Nasal Cannula 5.0 11/02/16 00:27 86 18 93 Nasal Cannula 5.0 11/02/16 00:10 Nasal Cannula 5.0 Humidified Oxygen 11/01/16 23:45 84 Nasal Cannula 4.0 11/01/16 22:50 37.4 84 18 100/45 90 Nasal Cannula 4.0 Exam CONST: A&O x3, NAD, chronically ill appearing male EXT: LLE BKA site C/D/I with avelino. + local tenderness and mild edema. No erythema or discharge noted. Intake & Output 8-Hour Column 11/01/16 11/01/16 11/02/16 15:59 23:59 07:59 Intake Total 469 ml 104 ml 300 ml Output Total 450 ml 450 ml 500 ml Balance 19 ml -346 ml -200 ml 24-Hour Column 11/02/16 07:59 Intake Total 873 ml Output Total 1400 ml Balance -527 ml Laboratory and Microbiology Results Past 24 Hours Test 11/01/16 11:10 11/01/16 16:31 11/01/16 16:51 11/02/16 06:15 Range/Units Bedside Glucose 147 119 70-99 mg/dl Sodium Level 139 140 136-145 mmol/L Potassium Level 3.0 3.4 3.5-5.1 mmol/L Chloride Level 103 103 98-107 mmol/L Carbon Dioxide Level 31 29 21-32 mmol/L Anion Gap 5.0 8.0 3-11 mmol/L Blood Urea Nitrogen 10 9 7-18 mg/dl Creatinine 0.48 0.50 0.60-1.40 mg/dl Est Creatinine Clear Calc Drug Dose 120.6 115.8 ml/min Estimated GFR () 131.2 129.1 Estimated GFR (Non- 113.2 111.4 BUN/Creatinine Ratio 21.0 17.2 10-20 Random Glucose 115 115 70-99 mg/dl Calcium Level 7.8 7.9 8.5-10.1 mg/dl White Blood Count 14.16 4.8-10.8 K/uL Red Blood Count 3.06 4.7-6.1 M/uL Hemoglobin 8.9 14.0-18.0 g/dL Hematocrit 27.6 42-52 % Mean Corpuscular Volume 90.2 80-100 fL Mean Corpuscular Hemoglobin 29.1 25-34 pg Mean Corpuscular Hemoglobin Concent 32.2 32-36 g/dl Platelet Count 259 130-400 K/uL Mean Platelet Volume 9.9 7.4-10.4 fL Neutrophils (%) (Auto) 80.6 % Lymphocytes (%) (Auto) 5.6 % Monocytes (%) (Auto) 10.7 % Eosinophils (%) (Auto) 0.2 % Basophils (%) (Auto) 0.1 % Neutrophils # (Auto) 11.40 1.4-6.5 K/uL Lymphocytes # (Auto) 0.80 1.2-3.4 K/uL Monocytes # (Auto) 1.51 0.11-0.59 K/uL Eosinophils # (Auto) 0.03 0-0.5 K/uL Basophils # (Auto) 0.02 0-0.2 K/uL RDW Standard Deviation 53.9 36.4-46.3 fL RDW Coefficient of Variation 16.4 11.5-14.5 % Immature Granulocyte % (Auto) 2.8 % Immature Granulocyte # (Auto) 0.40 0.00-0.02 K/uL Polychromasia 1+ Test 11/02/16 07:40 Range/Units Activated Partial Thromboplast Time 54.3 21.0-31.0 SECONDS Partial Thromboplastin Ratio 2.1 ASSESSMENT and PLAN: s/p LLE BKA Pt doing well post op. Light dressing only if drainage occurs. Discussed wtih RN. Continue PT/OT. OK for d/c from vascular standpoint. Will see in office in 2-3 weeks for staple removal. Please call if needed.
--- NOTE | 2016-11-02 19:27 | Family Medicine Progress Note ---
Progress Note Date of Service Nov 02, 2016. Subjective Pt evaluation today including: conversation w/ patient, physical exam Patient was seen at the bedside. Patient states that he has intermittent pain in the right lower extremity. He complains of SOB mostly with exertion. He is on 2-4L O2 in the correction. Complains of cough but unable to clear mucosal secretion. Tolerating food well. Denies any other complaints. Patient states that he is overall feeling better. Constitutional: No fever Respiratory: + cough, + dyspnea on exertion, + shortness of breath, + sputum , No dyspnea at rest, No wheezing Cardiovascular: No chest pain, No edema Abdomen: No GI bleeding, No constipation, No diarrhea, No nausea, No pain, No vomiting Musculoskeletal: No muscle pain Skin: No rash Medications Current Inpatient Medications Medications (Trade) Dose Ordered Sig/Malcolm Route Start Time Stop Time Status Last Admin Dose Admin Levothyroxine Sodium (Synthroid Tab) 225 mcg DAILYBB PO 10/18/16 08:30 11/17/16 08:29 11/02/16 06:08 225 MCG Nortriptyline HCl (Pamelor Cap) 10 mg HS PO 10/18/16 21:00 11/17/16 20:59 11/01/16 20:15 10 MG Miscellaneous Information (Order Awaiting Action) 1 ea QS N/A 10/18/16 08:00 11/17/16 07:59 Acetaminophen (Tylenol Tab) 650 mg Q4H PRN PO 10/18/16 06:45 11/17/16 06:44 10/21/16 05:23 650 MG Ondansetron HCl (Zofran Inj) 4 mg Q6H PRN IV 10/18/16 06:45 11/17/16 06:44 10/20/16 08:00 4 MG Glucose (Glucose 40% Gel) 15-30 GRAMS 15 GRAMS... UD PRN PO 10/21/16 14:45 11/20/16 14:44 Glucose (Glucose Chew Tab) 4-8 Tablets 4 Tabl... UD PRN PO 10/21/16 14:45 11/20/16 14:44 Dextrose (Dextrose 50% 50ML Syringe) 25-50ML OF 50% DW IV FOR... UD PRN IV 10/21/16 14:45 11/20/16 14:44 Glucagon 1 mg 1 mg UD PRN SQ 10/21/16 14:45 11/20/16 14:44 Heparin Sodium/ Dextrose (Heparin 25,000 Unit/500ml D5W) 500 ml @ 30 mls/hr [id number] PRN IV 10/21/16 23:45 11/20/16 23:44 11/02/16 14:58 30 MLS/HR Heparin Sodium (Porcine) (Heparin 10 Unit/ ml 5 ml Flush) 5 ml PRN PRN FLUSH 10/23/16 00:15 11/22/16 00:14 11/02/16 06:53 5 ML Ipratropium [place] (Atrovent 0.02% 0.5MG/2.5ML Neb) 0.5 mg Q6R INH 10/25/16 21:00 11/24/16 20:59 11/02/16 14:33 0.5 MG Levalbuterol (Xopenex 1.25MG/ 0.5ML Neb) 1.25 mg Q6R INH 10/25/16 21:00 11/24/16 20:59 11/02/16 14:33 1.25 MG Bisacodyl (Dulcolax Supp) 10 mg DAILY PRN IA 10/25/16 18:00 11/24/16 17:59 Pantoprazole Sodium (Protonix Tab) 40 mg BID PO 10/25/16 21:00 11/24/16 20:59 11/02/16 08:27 40 MG Amiodarone HCl (Cordarone Tab) 400 mg BID PO 10/26/16 21:00 11/02/16 21:01 11/02/16 08:28 400 MG Metoprolol Tartrate (Lopressor Tab) 12.5 mg BID PO 10/26/16 21:00 11/25/16 20:59 11/02/16 08:32 12.5 MG Amiodarone HCl (Cordarone Tab) 200 mg BID PO 11/03/16 09:00 12/03/16 08:59 Enteral Nutritional Formula (Boost Breeze Nutritional Drink) 1 box BIDM PO 10/27/16 16:30 11/26/16 16:29 11/02/16 17:06 1 BOX Cholestyramine Resin (Questran Powder Light) 4 gm BID@ PO 10/31/16 10:00 11/30/16 09:59 11/02/16 09:07 4 GM Guaifenesin (Organidin Nr Tab) 200 mg Q6 PRN PO 10/31/16 09:15 11/30/16 09:14 10/31/16 10:20 200 MG Oxycodone HCl (Roxicodone Immediate Rel Tab) 5 mg Q6 PRN PO 10/31/16 14:45 11/14/16 14:44 11/02/16 13:13 5 MG Loperamide HCl (Imodium Cap) 2 mg Q4 PRN PO 10/31/16 14:45 11/30/16 14:44 11/01/16 16:41 2 MG Gabapentin (Neurontin Cap) 300 mg TID PO 11/01/16 21:00 12/01/16 20:59 11/02/16 13:15 300 MG Potassium Chloride (Klor-Con Tab) 20 meq BID PO 11/01/16 21:00 12/01/16 20:59 11/02/16 08:27 20 MEQ Objective Vital Signs Date Time Temp Pulse Resp B/P Pulse Ox O2 Delivery O2 Flow Rate FiO2 11/02/16 16:45 92 Nasal Cannula 4.5 11/02/16 15:08 37.2 83 18 100/53 89 Nasal Cannula 4.0 11/02/16 14:34 81 18 96 Nasal Cannula 5.0 11/02/16 08:16 85 18 97 Nasal Cannula 5.0 11/02/16 07:50 93 Nasal Cannula 5.0 11/02/16 07:40 37.0 83 18 102/58 94 Nasal Cannula 5.0 11/02/16 00:27 86 18 93 Nasal Cannula 5.0 11/02/16 00:10 Nasal Cannula 5.0 Humidified Oxygen 11/01/16 23:45 84 Nasal Cannula 4.0 11/01/16 22:50 37.4 84 18 100/45 90 Nasal Cannula 4.0 11/01/16 19:46 83 14 97 Nasal Cannula 4.0 Physical Exam General Appearance: WD/WN, no apparent distress Neck: supple, trachea midline Respiratory/Chest: chest non-tender, no respiratory distress, no accessory muscle use, + decreased breath sounds Cardiovascular: regular rate, rhythm, no edema Abdomen: normal bowel sounds, non tender, soft Extremities: non-tender, no pedal edema, no calf tenderness, + pertinent finding (Left below knee amputation, no oozing was noted, tender to touch on the right foot) Neurologic/Psychiatric: alert, normal mood/affect, oriented x 3 Skin: normal color, warm/dry, no rash Laboratory Results Results Past 24 Hours Test 11/02/16 06:15 11/02/16 07:40 Range/Units White Blood Count 14.16 4.8-10.8 K/uL Red Blood Count 3.06 4.7-6.1 M/uL Hemoglobin 8.9 14.0-18.0 g/dL Hematocrit 27.6 42-52 % Mean Corpuscular Volume 90.2 80-100 fL Mean Corpuscular Hemoglobin 29.1 25-34 pg Mean Corpuscular Hemoglobin Concent 32.2 32-36 g/dl Platelet Count 259 130-400 K/uL Mean Platelet Volume 9.9 7.4-10.4 fL Neutrophils (%) (Auto) 80.6 % Lymphocytes (%) (Auto) 5.6 % Monocytes (%) (Auto) 10.7 % Eosinophils (%) (Auto) 0.2 % Basophils (%) (Auto) 0.1 % Neutrophils # (Auto) 11.40 1.4-6.5 K/uL Lymphocytes # (Auto) 0.80 1.2-3.4 K/uL Monocytes # (Auto) 1.51 0.11-0.59 K/uL Eosinophils # (Auto) 0.03 0-0.5 K/uL Basophils # (Auto) 0.02 0-0.2 K/uL RDW Standard Deviation 53.9 36.4-46.3 fL RDW Coefficient of Variation 16.4 11.5-14.5 % Immature Granulocyte % (Auto) 2.8 % Immature Granulocyte # (Auto) 0.40 0.00-0.02 K/uL Polychromasia 1+ Sodium Level 140 136-145 mmol/L Potassium Level 3.4 3.5-5.1 mmol/L Chloride Level 103 98-107 mmol/L Carbon Dioxide Level 29 21-32 mmol/L Anion Gap 8.0 3-11 mmol/L Blood Urea Nitrogen 9 7-18 mg/dl Creatinine 0.50 0.60-1.40 mg/dl Est Creatinine Clear Calc Drug Dose 115.8 ml/min Estimated GFR () 129.1 Estimated GFR (Non- 111.4 BUN/Creatinine Ratio 17.2 10-20 Random Glucose 115 70-99 mg/dl Calcium Level 7.9 8.5-10.1 mg/dl Activated Partial Thromboplast Time 54.3 21.0-31.0 SECONDS Partial Thromboplastin Ratio 2.1 Assessment and Plan 70 year old male prisoner with h/o of smoking, permanent a.flutter on warfarin, COPD, 2-4L O2 in correction p/w SOB, cough, hemoptysis found to have LLL consolidation on CXR, multiple PE's on CTA, in addition to acute occlusion of the left popliteal artery s/p embolectomy x2 despite warfarin use. IVC filter inserted on 10/20/16. BKA performed on 10/28/16. Patient has history of rectal SCC s/p chemo-radiation therapy * Left below knee amputation - Due to lower extremity artery occlusion with unsuccessful repeat surgical revascularization of the left leg - Pain management with PO oxycodone and PO Gabapentin 300 TID - Ongoing OT/PT rehabilitation - Frequent repositioning and pillows to prevent sacral/ heel ulcers * Diarrhea - Denies any today - Nonobstructive bowel pattern on AXR. No C.diff or stool leuks. Stool culture negative. HIV negative. IGA in normal range. 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 - Cholestyramine resin or Imodium PRN - IV K+ replacement after Mg+/PO4+ confirmed to be in normal range, and schedule KCl ordered - Currently on 20 meq KCL BID - f/u tomorrow BMP, if appropriate will d/c KCL * Intermittent respiratory distress - Patient is on 2-4L O2 in the correction - LLL Consolidation s/p antibiotic treatment. Blood cultures are negative. Desaturation suspected to be due to mucus plugs LLL s/p bronchoscopy (10/23, 10/25 ), with suction. Bronchial washings negative for growth, MRSA swab negative - Continue oxygen support via NC to maintain sats > 92% - Continue Atrovent and Xopenex nebulizers - Continue Flutter valve, chest physiotherapy and incentive spirometry * Rate-controlled Afib/Flutter - Last ECHO in Jul 2016 showed Normal EF and mitral valve calcification - Metoprolol 12.5mg BID for rate control, and Heparin for anticoagulation - Amiodarone changed to PO 400mg x 1 week, then 200mg as of 11/03/16, as per cardiology * Pulmonary Embolism - IVC filter placed due to failure of anticoagulation on Coumadin. DVT in the left lower extremity (popliteal and peroneal veins). - Continue Heparin drip for anticoagulation. - Spoke with Dr. Morgan for recommendation on anticoagulant. He will follow up with the patient tomorrow am. - Monitor H/H * Hypercoagulable State suspicious for Malignancy - DVT / PE despite supratherapeutic INR. CTA revealed prominent mediastinal and hilar nodes - upon Dr. Casillas's review there might have been adenopathy extended two years prior on previous imagining, LLL consolidation is a new finding. - H/o rectal SCC s/p chemo/rad - Dr. Morgan will follow up with the patient tomorrow am to give input about future anticoagulation. * Hypotension -BP stable * Hypothyroid - TSH and T4 normal in Sep. - Continue Synthroid 225mcg * Diabetes - HbA1c 6.1 (pre-diabetic), sugars exacerbated by stress and steroid administration. Glycemic consult - Cancel BID glucose checks and insulin, as sugars normalized post completion of steroid therapy * DVT/GI Prophylaxis - Continue heparin drip, pantoprazole PO 40mg *Code Status - Full code * Dispo - Possible d/c tomorrow Resident Tracking Resident Involvement: Resident Care Provided Care Provided: Adult Hospital Medicine Reviewed: Pt Seen/Exam by Me Constitutional: denies: fever Respiratory: positive: short of breath (baseline) Cardiovascular: denies chest pain Gastrointestinal/Abdominal: negative: abdominal pain General Appearance: no apparent distress Respiratory: no respiratory distress, decreased breath sounds Cardiovascular: regular rate, rhythm Extremities: other (left BKA) Neurologic/Psychiatric: alert, oriented x 3 Skin Characteristics: warm/dry Assessment/Plan I have reviewed the medical record and performed a history and physical examination of this patient today. I have discussed the case with Dr. Ruvalcaba. The above note reflects my findings, conclusions, and recommendations. Await anticoagulation recommendation Anticipate d/c to correction in am
[2016-11-02] MEDS: NORTRIPTYLINE HCL 10 MG CAP PO SCH (21:36)
[2016-11-03] VITALS (17 sets, daily range): BP systolic 91–119; BP diastolic 49–71; PULSE 74–92; TEMP 36.9–37.2; O2SAT 88–96
[2016-11-03] MEDS: IPRATROPIUM BROMIDE NEB SOLN 0.02% 2.5 ML VIAL INH SCH ×3 (02:05→14:37)
[2016-11-03] MEDS: LEVALBUTEROL 1.25MG/0.5ML NEB INH SCH ×3 (02:05→14:38)
[2016-11-03] MEDS: LEVOTHYROXINE 75 MCG TAB PO SCH (05:39)
[2016-11-03 05:43] LABS: HEMATOCRIT 27.4 % (42-52); MEAN CELL VOLUME 90.7 fL (80-100); MEAN CORPUSCULAR HEMOGLOBIN 29.1 pg (25-34); MEAN CORPUSCULAR HGB CONC 32.1 g/dl (32-36); MEAN PLATELET VOLUME 9.7 fL (7.4-10.4); PLATELET COUNT 253 K/uL (130-400); RED BLOOD COUNT 3.02 M/uL (4.7-6.1); WHITE BLOOD COUNT 13.94 K/uL (4.8-10.8)
[2016-11-03 06:11] LABS: CALCIUM 7.9 mg/dl (8.5-10.1); CREATININE 0.46 mg/dl (0.60-1.40); POTASSIUM 3.5 mmol/L (3.5-5.1)
[2016-11-03] MEDS: HEPARIN 25,000 UNIT/500ML D5W 500 ML IV PRN (07:01)
[2016-11-03] MEDS: BOOST BREEZE NUTRITION DRINK 1 BOX PO SCH (08:40)
[2016-11-03] MEDS: METOPROLOL TARTRATE 25 MG TAB PO SCH (08:41)
[2016-11-03] MEDS: PANTOprazole SOD 40 MG TAB PO SCH (08:41)
[2016-11-03] MEDS: POTASSIUM CHLORIDE 20 MEQ TABCR PO SCH (08:42)
[2016-11-03] MEDS: GUAIFENESIN 200 MG TAB PO PRN (08:42)
[2016-11-03] MEDS: GABAPENTIN 300 MG CAP PO SCH ×2 (08:42→14:19)
[2016-11-03] MEDS ORDERED: AMIODARONE 200 MG TAB PO SCH (09:00)
[2016-11-03] MEDS: CHOLESTYRAMINE LIGHT 4 GM PKT PO SCH (09:34)
--- NOTE | 2016-11-03 10:27 | Hematology/Oncology Prog Note ---
Hematology/Onc Progress Note Date of Service Nov 03, 2016. 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, s/p L BKA Medications Medications Administered Medications (Trade) Dose Ordered Sig/Malcolm Route Start Time Stop Time Status Last Admin Dose Admin Levothyroxine Sodium (Synthroid Tab) 225 mcg DAILYBB PO 10/18/16 08:30 11/17/16 08:29 11/03/16 05:39 225 MCG Loperamide HCl (Imodium Cap) 2 mg BID PO 10/18/16 09:00 10/20/16 21:00 DC 10/20/16 22:02 2 MG Loratadine (Claritin Tab) 10 mg DAILY PO 10/18/16 09:00 10/21/16 15:48 DC 10/20/16 10:34 10 MG Nortriptyline HCl (Pamelor Cap) 10 mg HS PO 10/18/16 21:00 11/17/16 20:59 11/02/16 21:36 10 MG Guaifenesin (Organidin Nr Tab) 400 mg TID PO 10/18/16 09:00 10/21/16 15:48 DC 10/20/16 22:01 400 MG Pantoprazole Sodium (Protonix Tab) 40 mg DAILY PO 10/18/16 09:00 10/21/16 12:29 DC 10/20/16 10:35 40 MG Acetaminophen (Tylenol Tab) 650 mg Q4H PRN PO 10/18/16 06:45 11/17/16 06:44 10/21/16 05:23 650 MG Ondansetron HCl (Zofran Inj) 4 mg Q6H PRN IV 10/18/16 06:45 11/17/16 06:44 10/20/16 08:00 4 MG Morphine Sulfate 2 mg 2 mg Q30M PRN IV 10/18/16 06:45 10/22/16 07:51 DC 10/20/16 02:48 2 MG Ampicillin Sodium/ Sulbactam Sodium 3000 mg/Sodium Chloride 108 ml @ 200 mls/hr Q6H IV 10/18/16 08:00 10/18/16 13:14 DC 10/18/16 08:29 200 MLS/HR Azithromycin/ Dextrose (Zithromax IV/D5 250ml) 255 ml @ 125 mls/hr DAILY@0900 IV 10/18/16 09:00 10/23/16 11:40 DC 10/23/16 08:43 125 MLS/HR Albuterol/ Ipratropium (Duoneb) 3 ml Q6R INH 10/18/16 09:00 10/22/16 00:13 DC 10/21/16 01:29 3 ML Albuterol Sulfate 2.5 mg 2.5 mg Q4H PRN INH 10/18/16 06:45 10/22/16 00:13 DC 10/18/16 11:22 2.5 MG Potassium Chloride/Dextrose/ Sod Cl 1,000 ml @ 75 mls/hr [id number] IV 10/18/16 08:00 10/18/16 21:19 DC 10/18/16 08:26 75 MLS/HR Sodium Chloride (Nss 250ml) 250 ml @ 999 mls/hr Q16M IV 10/18/16 10:00 10/18/16 10:36 DC 10/18/16 11:19 999 MLS/HR Enoxaparin Sodium 60 mg 60 mg Q12@1100,2300 SQ 10/18/16 11:00 10/19/16 19:03 DC 10/19/16 10:54 60 MG Ceftriaxone Sodium 1 gm/ Dextrose 50 ml @ 100 mls/hr DAILY@1400 IV 10/18/16 14:00 10/25/16 11:33 DC 10/24/16 14:18 100 MLS/HR Metronidazole/Prmx (Flagyl / Nss/ Premixed Nss) 100 ml @ 100 mls/hr Q6 IV 10/18/16 18:00 10/19/16 10:25 DC 10/19/16 06:53 100 MLS/HR Dornase Sy (Pulmozyme Inhalation Soln 2.5ml Amp) 2.5 ml BIDR INH 10/18/16 20:00 10/19/16 10:25 DC 10/19/16 07:27 2.5 ML Metoprolol Tartrate (Lopressor Tab) 25 mg TID PO 10/19/16 21:00 10/21/16 12:29 DC 10/20/16 22:01 25 MG Metoprolol Tartrate (Lopressor Iv) 5 mg STK-MED ONCE .ROUTE 10/19/16 15:44 10/19/16 15:48 DC 10/19/16 15:56 5 MG Diltiazem HCl 10 mg 10 mg TODAY@1800 IV 10/19/16 18:00 10/19/16 18:01 DC 10/19/16 18:25 10 MG Diltiazem HCl/ Dextrose (Cardizem Inj/D5 100ml) 125 ml @ 0 mls/hr Q0M PRN IV 10/19/16 18:00 10/22/16 08:46 DC 10/21/16 15:20 15 MLS/HR Enoxaparin Sodium (Lovenox Inj) 60 mg Q12 SQ 10/19/16 21:00 10/21/16 22:03 DC 10/21/16 20:45 60 MG Lidocaine HCl (Xylocaine 1% Inj (Local)) 3 ml ONE ONCE SQ 10/20/16 16:57 10/20/16 16:59 DC 10/20/16 16:57 3 ML Iodixanol (Visipaque 50ml) 4,050 mg ONE ONCE IV 10/20/16 16:57 10/20/16 16:59 DC 10/20/16 16:57 4,050 MG Heparin Sodium/ Sodium Chloride (Heparin Sod/Ns 2 Units/Ml) 20 unit ONE ONCE IV 10/20/16 16:57 10/20/16 16:59 DC 10/20/16 16:57 20 UNIT Cefazolin Sodium (Ancef Inj) 1,000 mg STK-MED ONCE .ROUTE 10/21/16 07:18 10/21/16 07:21 DC 10/21/16 09:45 1,000 MG Heparin Sodium (Porcine) 68372 unit 10,000 unit STK-MED ONCE .ROUTE 10/21/16 07:18 10/21/16 07:22 DC 10/21/16 09:45 5,000 UNIT Dextrose/Sodium Chloride (D5W And 1/2nss) 1,000 ml @ 100 mls/hr Q10H IV 10/21/16 10:45 10/21/16 20:44 DC 10/21/16 12:28 100 MLS/HR Iodixanol (Visipaque (Iodixanol) Inj 270MG/Ml) 11 ml ONE ONCE INSTIL 10/21/16 10:54 10/21/16 10:55 DC 10/21/16 09:40 11 ML Propofol (Diprivan Iv Emulsion 100ml Vial) 1 dose STK-MED ONCE IV 10/21/16 11:00 10/21/16 11:03 DC 10/21/16 12:28 1 DOSE Metoprolol Tartrate (Lopressor Iv) 5 mg STK-MED ONCE .ROUTE 10/21/16 12:04 10/21/16 12:08 DC 10/21/16 12:22 5 MG Diltiazem HCl (Cardizem Inj) 25 mg STK-MED ONCE .ROUTE 10/21/16 12:22 10/21/16 12:26 DC 10/21/16 12:49 10 MG Metoprolol Tartrate (Lopressor Tab) 50 mg TID PO 10/21/16 14:00 10/22/16 08:45 DC 10/21/16 20:43 50 MG Chlorhexidine Gluconate 15 ml 15 ml BID MT 10/21/16 21:00 10/25/16 15:52 DC 10/25/16 09:00 15 ML Norepinephrine Bitartrate 8 mg/ Dextrose 508 ml @ 0 mls/hr Q0M PRN IV 10/21/16 13:30 10/25/16 15:52 DC 10/24/16 13:18 17 MLS/HR Amiodarone HCL/ Dextrose 100 ml @ 600 mls/hr TODAY@1345 IV 10/21/16 13:45 10/21/16 13:54 DC 10/21/16 14:19 600 MLS/HR Amiodarone HCL/ Dextrose 200 ml @ 33.3 mls/hr Q6H1M IV 10/21/16 14:00 10/21/16 20:00 DC 10/21/16 14:29 33.3 MLS/HR Amiodarone HCL/ Dextrose (Nexterone / D5w) 200 ml @ 16.7 mls/hr [id number] IV 10/21/16 20:00 10/22/16 15:21 DC 10/22/16 05:32 16.7 MLS/HR Miscellaneous (Insulin Protocol Dka Goal Range) 1 ea ONE ONCE N/A 10/21/16 14:30 10/21/16 14:32 DC 10/21/16 14:30 1 EA Miscellaneous (Insulin Protocol Severe Stress) 1 ea ONE ONCE N/A 10/21/16 14:30 3/22/17 14:31 DC 10/21/16 16:26 1 EA Diltiazem HCl 25 mg 25 mg STK-MED ONCE .ROUTE 10/21/16 15:40 10/21/16 15:44 DC 10/21/16 15:47 10 MG Insulin Human Regular 2.5 unit/ Syringe 2.5 ml @ 1 mls/min TODAY@1615 IV 10/21/16 16:15 10/21/16 16:18 DC 10/21/16 16:25 1 MLS/MIN Insulin Human Regular 250 units/ Sodium Chloride 252.5 ml @ 0 mls/hr DAILY@1130 IV 10/21/16 16:15 10/25/16 16:51 DC 10/24/16 12:32 0.8 MLS/HR Fentanyl Citrate (Fentanyl Drip 1250MCG/250 Nss) 250 ml @ 0 mls/hr Q0M PRN IV 10/21/16 16:15 10/25/16 15:52 DC 10/25/16 05:22 20 MLS/HR Fentanyl Citrate (Fentanyl Inj) 50 mcg Q2H PRN IV 10/21/16 16:15 10/25/16 18:14 DC 10/25/16 03:06 50 MCG Propofol (Diprivan Iv Emulsion 100ml Vial) 1 dose UD PRN IV 10/21/16 18:15 10/23/16 08:28 DC 10/22/16 01:43 1 DOSE Propofol 1 dose 1 dose STK-MED ONCE IV 10/21/16 18:26 10/21/16 18:29 DC 10/21/16 18:32 1 DOSE Heparin Sodium (Porcine) 5000 unit/Syringe 5 ml @ 10 mls/min NOW STAT IV 10/21/16 23:35 10/21/16 23:36 DC 10/21/16 23:56 10 MLS/MIN Heparin Sodium/ Dextrose (Heparin 25,000 Unit/500ml D5W) 500 ml @ 30 mls/hr [id number] PRN IV 10/21/16 23:45 11/20/16 23:44 11/03/16 07:01 30 MLS/HR Albuterol (Ventolin Hfa Inhaler) 4 puffs Q6R INH 10/22/16 03:00 10/26/16 10:35 DC 10/25/16 15:08 4 PUFFS Ipratropium [place] (Atrovent Hfa Inhaler) 4 puffs Q6R INH 10/22/16 03:00 10/26/16 10:35 DC 10/25/16 15:08 4 PUFFS Docusate Sodium (coLACE SYRUP) 100 mg BID PO 10/22/16 09:00 10/29/16 10:55 DC 10/27/16 07:35 100 MG Heparin Sodium (Porcine) (Heparin Sod 5000u/ml(Porcine)) 5,000 unit STK-MED ONCE .ROUTE 10/22/16 09:36 10/22/16 09:39 DC 10/22/16 13:00 5,000 UNIT Cefazolin Sodium 1000 mg 1,000 mg STK-MED ONCE .ROUTE 10/22/16 09:36 10/22/16 09:40 DC 10/22/16 13:00 1,000 MG Diltiazem HCl/ Dextrose (Cardizem Inj/D5 100ml) 125 ml @ 0 mls/hr Q0M PRN IV 10/22/16 13:30 10/23/16 11:32 DC 10/22/16 21:35 5 MLS/HR Iodixanol (Visipaque (Iodixanol) Inj 270MG/Ml) 150 ml ONE ONCE INSTIL 10/22/16 14:25 10/22/16 14:26 DC 10/22/16 13:00 150 ML Amiodarone HCL/ Dextrose (Nexterone / D5w) 360 mg STK-MED ONCE .ROUTE 10/22/16 15:26 10/22/16 15:29 DC 10/22/16 15:37 360 MG Amiodarone HCL/ Dextrose 150 mg 150 mg STK-MED ONCE .ROUTE 10/22/16 15:26 10/22/16 15:29 DC 10/22/16 15:36 150 MG Amiodarone HCL/ Dextrose 200 ml @ 33.3 mls/hr Q6H1M IV 10/22/16 15:55 10/22/16 22:00 DC 10/22/16 21:34 33.3 MLS/HR Amiodarone HCL/ Dextrose 200 ml @ 16.7 mls/hr [id number] IV 10/22/16 22:00 10/26/16 23:00 DC 10/26/16 09:34 16.7 MLS/HR Pantoprazole Sodium 80 mg/ Dextrose 120 ml @ 480 mls/hr 1630 IV 10/22/16 16:30 10/22/16 16:44 DC 10/22/16 17:40 480 MLS/HR Pantoprazole Sodium/Dextrose (Protonix Inj/D5 100ml) 100 ml @ 20 mls/hr Q5H IV 10/22/16 16:45 10/24/16 13:17 DC 10/24/16 08:16 20 MLS/HR Albumin Human (Albumin 25%) 12.5 gm ONE STAT IV 10/22/16 16:21 10/22/16 16:30 DC 10/22/16 17:40 12.5 GM Diltiazem HCl 15 mg 15 mg NOW STAT IV 10/22/16 18:17 10/22/16 18:30 DC 10/22/16 18:53 15 MG Heparin Sodium (Porcine)/Syringe (Heparin Iv Bolus/Syringe) 3 ml @ 10 mls/min NOW STAT IV 10/22/16 22:49 10/22/16 22:50 DC 10/22/16 23:03 10 MLS/MIN Heparin Sodium (Porcine) (Heparin 10 Unit/ ml 5 ml Flush) 5 ml PRN PRN FLUSH 10/23/16 00:15 11/22/16 00:14 11/03/16 05:30 5 ML Polyethylene 17 gm 17 gm BID PO 10/23/16 09:00 10/29/16 10:55 DC 10/26/16 20:43 17 GM Methylprednisolone Sodium Succinate 40 mg/Syringe 0.64 ml @ 1.5 mls/min Q8H IV 10/23/16 12:00 10/24/16 04:01 DC 10/24/16 04:23 1.5 MLS/MIN Furosemide/Syringe (Lasix Inj/ Syringe) 2 ml @ 4 mls/min NOW ONCE IV 10/23/16 12:00 10/23/16 12:01 DC 10/23/16 12:03 4 MLS/MIN Diltiazem HCl 25 mg 25 mg STK-MED ONCE .ROUTE 10/23/16 18:03 10/23/16 18:08 DC 10/23/16 18:11 10 MG Diltiazem HCl/ Dextrose (Cardizem Inj/D5 100ml) 125 ml @ 0 mls/hr Q0M PRN IV 10/23/16 18:30 10/26/16 19:02 DC 10/26/16 00:44 5 MLS/HR Propofol (Diprivan Iv Emulsion 100ml Vial) 1 dose UD PRN IV 10/23/16 18:45 10/25/16 15:53 DC 10/24/16 02:48 1 DOSE Furosemide (Lasix Inj) 40 mg NOW STAT IV 10/23/16 19:08 10/23/16 19:12 DC 10/23/16 20:49 40 MG Diltiazem HCl (Cardizem Inj) 25 mg STK-MED ONCE .ROUTE 10/23/16 20:11 10/23/16 20:15 DC 10/23/16 20:12 25 MG Diltiazem HCl 25 mg 25 mg STK-MED ONCE .ROUTE 10/23/16 21:03 10/23/16 21:06 DC 10/23/16 21:16 15 MG Heparin Sodium (Porcine)/Syringe (Heparin Iv Bolus/Syringe) 3 ml @ 10 mls/min TODAY@0900 ONCE IV 10/24/16 09:00 10/24/16 09:01 DC 10/24/16 09:28 10 MLS/MIN Senna (Senokot Syrup) 17.6 mg QAM PO 10/25/16 09:00 10/29/16 10:55 DC 10/26/16 07:49 17.6 MG Senna (Senokot Syrup) 17.6 mg ONE ONCE PO 10/24/16 12:30 10/24/16 12:40 DC 10/24/16 14:18 17.6 MG Bisacodyl (Dulcolax Supp) 10 mg NOW STAT [place] 10/24/16 12:29 10/24/16 12:40 DC 10/24/16 14:18 10 MG Acetylcysteine 3 ml 3 ml Q6R INH 10/24/16 15:00 10/25/16 18:14 DC 10/25/16 15:08 3 ML Furosemide 40 mg/ Syringe 4 ml @ 4 mls/min TODAY@1345 ONCE IV 10/24/16 13:45 10/24/16 13:46 DC 10/24/16 14:18 4 MLS/MIN Pantoprazole Sodium/Syringe (Protonix Inj/ Syringe) 10 ml @ 5 mls/min BID@0900,2100 IV 10/24/16 21:00 10/25/16 18:14 DC 10/25/16 08:59 5 MLS/MIN Enteral Nutritional Formula 1000 ml 1,000 ml UD PO 10/24/16 14:00 10/25/16 15:53 DC 10/24/16 14:18 1,000 ML Furosemide 60 mg/ Syringe 6 ml @ 4 mls/min TODAY@0100 IV 10/25/16 01:00 10/25/16 01:05 DC 10/25/16 01:48 4 MLS/MIN Heparin Sodium (Porcine)/Syringe (Heparin Iv Bolus/Syringe) 5 ml @ 10 mls/min NOW STAT IV 10/25/16 05:53 10/25/16 05:54 DC 10/25/16 06:19 10 MLS/MIN Furosemide (Lasix Inj) 40 mg NOW STAT IV 10/25/16 11:33 10/25/16 11:38 DC 10/25/16 12:28 40 MG Ipratropium [place] (Atrovent 0.02% 0.5MG/2.5ML Neb) 0.5 mg Q6R INH 10/25/16 21:00 11/24/16 20:59 11/03/16 07:48 0.5 MG Levalbuterol (Xopenex 1.25MG/ 0.5ML Neb) 1.25 mg Q6R INH 10/25/16 21:00 11/24/16 20:59 11/03/16 07:48 1.25 MG Insulin Glargine (Lantus Solostar Pen) 7 unit NOW ONCE SC 10/25/16 16:00 10/25/16 16:01 DC 10/25/16 16:41 7 UNIT Bisacodyl (Dulcolax Supp) 10 mg NOW STAT [place] 10/25/16 17:55 10/25/16 18:08 DC 10/25/16 20:48 10 MG Fentanyl Citrate (Fentanyl Inj) 25 mcg Q2H PRN IV 10/25/16 18:15 10/27/16 10:10 DC 10/27/16 09:55 25 MCG Pantoprazole Sodium (Protonix Tab) 40 mg BID PO 10/25/16 21:00 11/24/16 20:59 11/03/16 08:41 40 MG Potassium Chloride 40 meq 40 meq ONE ONCE PO 10/25/16 20:30 10/25/16 20:31 DC 10/25/16 20:48 40 MEQ Potassium Chloride 20 meq/ Prmx 100 ml @ 50 mls/hr Q2H IV 10/25/16 21:00 10/26/16 02:59 DC 10/26/16 00:44 50 MLS/HR Heparin Sodium (Porcine)/Syringe (Heparin Iv Bolus/Syringe) 5 ml @ 10 mls/min TODAY@0700 IV 10/26/16 07:00 10/26/16 08:00 DC 10/26/16 07:30 10 MLS/MIN Amiodarone HCl (Cordarone Tab) 400 mg BID PO 10/26/16 21:00 11/02/16 21:01 DC 11/02/16 21:36 400 MG Amiodarone HCl (Cordarone Tab) 400 mg 0945 ONCE PO 10/26/16 09:45 10/26/16 09:53 DC 10/26/16 11:12 400 MG Metoprolol Tartrate (Lopressor Tab) 12.5 mg BID PO 10/26/16 21:00 11/25/16 20:59 11/03/16 08:41 12.5 MG Metoprolol Tartrate (Lopressor Tab) 12.5 mg NOW ONCE PO 10/26/16 10:15 10/26/16 10:16 DC 10/26/16 11:12 12.5 MG Amiodarone HCl (Cordarone Tab) 200 mg BID PO 11/03/16 09:00 12/03/16 08:59 11/03/16 08:41 200 MG Miscellaneous 1 ea 1 ea TODAY@2300 ONCE N/A 10/26/16 23:00 10/26/16 23:01 DC 10/26/16 23:14 1 EA Potassium Phosphate/Sodium Chloride (Potassium Phosphate Inj/Nss 250ml) 255 ml @ 88 mls/hr TODAY@1100 ONCE IV 10/26/16 11:00 10/26/16 13:53 DC 10/26/16 11:13 88 MLS/HR Potassium Chloride (Klor-Con Tab) 40 meq NOW ONCE PO 10/26/16 11:00 10/26/16 11:01 DC 10/26/16 11:13 40 MEQ Hydromorphone HCl 0.5 mg 0.5 mg Q3H PRN IV 10/27/16 10:15 10/31/16 14:39 DC 10/31/16 08:39 0.5 MG Potassium Chloride/Prmx (Kcl 20 Meq / Wtr/Premixed Water) 100 ml @ 50 mls/hr Q2H IV 10/27/16 10:30 10/27/16 16:29 DC 10/27/16 14:41 50 MLS/HR Potassium Chloride (Klor-Con M10) 20 meq NOW ONCE PO 10/27/16 10:30 10/27/16 10:31 DC 10/27/16 10:47 20 MEQ Enteral Nutritional Formula (Boost Breeze Nutritional Drink) 1 box BIDM PO 10/27/16 16:30 11/26/16 16:29 11/03/16 08:40 1 BOX Albumin Human 12.5 gm 12.5 gm Q1H IV 10/28/16 10:30 10/28/16 11:31 DC 10/28/16 11:03 12.5 GM Potassium Chloride/Prmx (Kcl 20 Meq / Wtr/Premixed Water) 100 ml @ 50 mls/hr Q2H IV 10/28/16 11:00 10/28/16 16:59 DC 10/28/16 16:56 50 MLS/HR Potassium Chloride (Klor-Con Tab) 60 meq NOW ONCE PO 10/29/16 11:00 10/29/16 11:01 DC 10/29/16 12:16 60 MEQ Diphenoxylate HCl/ Atropine (Lomotil Tab) 1 tab NOW ONCE PO 10/29/16 11:00 10/29/16 11:01 DC 10/29/16 12:15 1 TAB Gabapentin 100 mg 100 mg TID PO 10/29/16 14:00 11/01/16 15:07 DC 11/01/16 13:04 100 MG Sodium Chloride (Nss 1000ml) 1,000 ml @ 50 mls/hr Q20H IV 10/29/16 12:00 10/31/16 09:23 DC 10/31/16 04:34 50 MLS/HR Insulin Aspart (novoLOG ASPART) SLIDING SCALE BID@0645,2100 SC 10/29/16 21:00 11/01/16 15:03 DC 10/31/16 00:01 1 UNITS Gabapentin (Neurontin Cap) 200 mg HS PO 10/30/16 21:00 11/01/16 15:07 DC 10/31/16 22:25 200 MG Hydroxyzine HCl (Vistaril Tab) 10 mg HS ONCE PO 10/30/16 21:00 10/30/16 21:01 DC 10/30/16 21:28 10 MG Cholestyramine Resin (Questran Powder Light) 4 gm BID@10,22 PO 10/31/16 10:00 11/30/16 09:59 11/03/16 09:34 4 GM Cholestyramine Resin (Questran Powder Light) 4 gm 2200 ONCE PO 10/30/16 22:00 10/30/16 22:01 DC 10/30/16 21:29 4 GM Guaifenesin 200 mg 200 mg Q6 PRN PO 10/31/16 09:15 11/30/16 09:14 11/03/16 08:42 200 MG Sodium Chloride 250 ml @ 50 mls/hr Q5H IV 10/31/16 09:30 11/01/16 21:02 DC 10/31/16 09:36 50 MLS/HR Potassium Chloride/Prmx (Kcl 20 Meq / Wtr/Premixed Water) 100 ml @ 50 mls/hr 1000 ONCE IV 10/31/16 10:00 10/31/16 11:59 DC 10/31/16 10:19 50 MLS/HR Oxycodone HCl (Roxicodone Immediate Rel Tab) 5 mg Q6 PRN PO 10/31/16 14:45 11/14/16 14:44 11/02/16 22:51 5 MG Loperamide HCl 2 mg 2 mg Q4 PRN PO 10/31/16 14:45 11/30/16 14:44 11/01/16 16:41 2 MG Potassium Chloride 20 meq/ Prmx 100 ml @ 50 mls/hr 1115 ONCE IV 11/01/16 11:15 11/01/16 13:14 DC 11/01/16 11:40 50 MLS/HR Sodium Chloride (Nss 250ml) 250 ml @ 50 mls/hr Q5H ONCE IV 11/01/16 11:00 11/01/16 15:59 DC 11/01/16 11:00 50 MLS/HR Gabapentin 300 mg 300 mg TID PO 11/01/16 21:00 12/01/16 20:59 11/03/16 08:42 300 MG Potassium Chloride/Prmx (Kcl 10 Meq / Wtr/Premixed Water) 100 ml @ 100 mls/hr Q1H IV 11/01/16 18:00 11/01/16 19:59 DC 11/01/16 20:56 100 MLS/HR Potassium Chloride (Klor-Con Tab) 20 meq BID PO 11/01/16 21:00 12/01/16 20:59 11/03/16 08:42 20 MEQ Subjective I was asked to see Mr. Crook again today for discharge planning. He has had an eventful course since I last saw him. He experienced respiratory failure and was intubated for a time. He also had an episode of atrial fibrillation with RVR that converted to sinus rhythm. Around that time, he had an acute occlusion of his left popliteal artery. He underwent L BKA after failed attempt at revascularization. He remains on heparin now for anticoagulation. He has pain in his leg, but it is slowly improving. He also apparently had an IVC filter placed, though the indication is not clear. Review of Systems: Constitutional: No chills, No fever Eyes: No worsening of vision Respiratory: No cough, No shortness of breath Cardiovascular: No chest pain Abdomen: No diarrhea, No nausea, No pain Musculoskeletal: + joint pain (at the site of his amputation) Neurologic: No numbness/tingling, No weakness Heme: No abnormal bleeding/bruising Skin: No rash Vital Signs Vital Signs Past 12 Hours Date Time Temp Pulse Resp B/P Pulse Ox O2 Delivery O2 Flow Rate FiO2 11/03/16 08:35 100/64 11/03/16 08:04 36.9 90 18 97/58 90 Room Air 11/03/16 07:48 88 18 96 Nasal Cannula 5.0 11/03/16 07:40 Humidified Oxygen 4.0 11/03/16 06:09 93 Nasal Cannula 5.0 Humidified Air 11/03/16 03:30 37.2 89 16 102/57 89 Nasal Cannula 5.0 11/03/16 02:05 88 18 95 Nasal Cannula 5.0 11/03/16 00:00 93 Nasal Cannula 5.0 Humidified Air 11/02/16 23:15 36.9 88 16 95/54 89 Nasal Cannula 4.0 Physical Exam Constitutional: General Apperance: too thin Level of Distress: chronically ill Psychiatric: Mental Status: active & alert Orientation: oriented except where noted Lungs: Respiratory Effort: no dyspnea Auscuitation: decreased breath sounds Cardiovascular: Heart Auscultation: RRR Abdomen: Inspection & Palpation: soft, no tenderness, guarding & rebound Extremities: pertinent finding (surgically absent L lower leg) Laboratory Last 24 Hours Test 11/03/16 05:30 White Blood Count 13.94 K/uL Red Blood Count 3.02 M/uL Hemoglobin 8.8 g/dL Hematocrit 27.4 % Mean Corpuscular Volume 90.7 fL Mean Corpuscular Hemoglobin 29.1 pg Mean Corpuscular Hemoglobin Concent 32.1 g/dl RDW Standard Deviation 53.0 fL RDW Coefficient of Variation 16.0 % Platelet Count 253 K/uL Mean Platelet Volume 9.7 fL Activated Partial Thromboplast Time 52.1 SECONDS Partial Thromboplastin Ratio 2.0 Sodium Level 138 mmol/L Potassium Level 3.5 mmol/L Chloride Level 101 mmol/L Carbon Dioxide Level 30 mmol/L Anion Gap 7.0 mmol/L Blood Urea Nitrogen 9 mg/dl Creatinine 0.46 mg/dl Est Creatinine Clear Calc Drug Dose 125.9 ml/min Estimated GFR () 133.6 Estimated GFR (Non- 115.2 BUN/Creatinine Ratio 20.0 Random Glucose 113 mg/dl Calcium Level 7.9 mg/dl Assessment & Plan Mr. Crook has AFib and was on coumadin as an outpatient. He presented with a supratherapeutic INR and what proved to be pulmonary embolism. We switched him to Lovenox and then he had a complicated hospital course due to respiratory failure and acute left popliteal arterial occlusion. This unfortunately led to a left BKA. I was asked to come back to comment on his anticoagulation prior to discharge. He failed coumadin, though the exact reason why is unclear. He has a remote history of lung cancer and I would like to evaluate his history further as an outpatient. Although his conversion from AFib to sinus rhythm could explain his popliteal arterial occlusion, I think we should send testing for antiphospholipid antibodies, to rule out APLS, which can present with both arterial and venous thrombosis and would explain his coumadin failure. Otherwise , I think he can safely be discharged on Lovenox 1 mg/kg BID. If he embolized an atrial thrombus following his cardioversion, it likely formed before his hospitalization, at the same time he formed his other clot. Thus, he would not have failed Lovenox. I would like to see him in the office in a few weeks to follow up on these results and his cancer history.
[2016-11-03] MEDS ORDERED: ENOX60IN SQ (10:28)
[2016-11-03] MEDS ORDERED: CRD200 PO (10:28)
[2016-11-03] MEDS ORDERED: LPR25 PO (10:28)
--- NOTE | 2016-11-03 10:59 | Discharge Instructions ---
Discharge Instructions Date of Service Nov 03, 2016. Admission Reason for Admission: Pulmonary Embolism Discharge Discharge Diagnosis / Problem: Pulmonary Embolism, Possible lung malignancy Discharge Goals Goal(s): Decrease discomfort, Improve disease control, Diagnostic testing Activity Recommendations Activity Limitations: resume your previous activity . Instructions / Follow-Up Instructions / Follow-Up Patient was admitted for SOB and hemoptysis. CT of chest showed several right hemithoracic pulmonary emboli, and consolidative infiltrate medial left lower lobe. Heme/Onc, Pulmonary, and Cardiology was consulted. Bronchoscopy was performed and bronchial wash of left lower lobe was unremarkable. IVC filter was placed on 10/20. He had left below knee amputation due to lower extremity artery occlusion with unsuccessful repeat surgical revascularization of the left leg. Pulmonary Embolism Coumadin will be stop and patient will be start on Lovenox 1mg/kg BID. Placed IVC filter Afib/Aflutter - Stop Sotalol. - Start new medication Amiodarone 200mg BID [id number] and Metoprolol 12.5mg BID as BP tolerated. Follow up with Heme/Onc Dr. Morgan in 3-4 weeks. Follow up with Vascular surgery clinic in 2-3 weeks for staple removal. Follow up with Pulmonary Dr. Moreno in 2-3 weeks Current Hospital Diet Patient's current hospital diet: Diabetes Type 2 Diet, AHA Diet (Heart Healthy) Discharge Diet Recommended Diet: Regular Diet Procedures Procedures Performed: Left Leg Below Knee Amputation Pending Studies Studies pending at discharge: yes List of pending studies: Anti cadiolipin AB, Beta-2 Glycoprotein AB, Stool workups Laboratory Results Hemoglobin A1c Test 10/22/16 05:38 Range/Units Estimated Average Glucose 128 mg/dl Hemoglobin A1c 6.1 H 4.5-5.6 % Medical Emergencies . Who to Call and When: Medical Emergencies: If at any time you feel your situation is an emergency, please call 911 immediately. . Non-Emergent Contact Non-Emergency issues call your: Primary Care Provider . . "Provider Documentation" section prepared by Chivo Ruvalcaba. VTE Core Measure Inpt VTE Proph given/why not?: Other Anticoagulation (heparin drip)
--- NOTE | 2016-11-03 23:10 | Discharge Summary ---
Discharge Summary Date of Service Nov 03, 2016. (Chivo Ruvalcaba MD) Discharge Summary Admission Date: Oct 18, 2016 at 06:37 Discharge Date: Nov 03, 2016 Principal Diagnosis: Recurrent VTE Problems/Secondary Diagnoses: Coumadin failure, left popliteal artery occlusion, s/p L BKA Immunizations: Have You Had Influenza Vaccine: Yes History of Tetanus Vaccine?: Yes History of Pneumococcal: Yes History of Hepatitis B Vaccine: Yes Procedures: Patient Name: MITA FLETCHER [id number] Unit Number: [id number] Dictated: 10/18/16646 Transcribed: 10/18/16646 MS Printed Date/Time: [~ rep prt dt]/[~ rep prt tm] [~ rep ct labl] - [~ rep ct ivnm] [facility] [place] [address] Dictated: 10/18/16646 Transcribed: 10/18/16646 MS Printed Date/Time: [~ rep prt dt]/[~ rep prt tm] [~ rep ct labl] - [~ rep ct ivnm] CHEST CTA for PULMONARY ARTERIES CT DOSE: 243.82 mGy.cm HISTORY: Chest pain. Dyspnea. EVAL FOR MASS, PE, PNM TECHNIQUE: Multiaxial CT images of the chest were performed following the intravenous administration of contrast to evaluate the pulmonary arteries. Maximal intensity projection images were also obtained. COMPARISON STUDY: None. FINDINGS: Moderate atherosclerotic change thoracic aorta. Study is positive for second and third of pulmonary emboli. This primarily seen in the right hemithorax. Parenchymal infiltrate right base. Consolidative change medial aspect left lower lobe. Moderate mediastinal as well as hilar adenopathy. IMPRESSION: 1. Study is positive for several right hemithoracic pulmonary emboli. 2. Parenchymal infiltrate versus developing infarct right base. 3. Consolidative infiltrate medial left lower lobe with follow-up to resolution is suggested. 4. Moderate mediastinal and hilar adenopathy as follow-up again recommended to confirm resolution Electronically signed by: Domo Lucas M.D. 10/18/2016 6:50 AM Dictated Date/Time: 10/18/2016 6:47 AM The status of this report is Signed. Draft = Not yet reviewed or approved by Radiologist. Signed = Reviewed and approved by Radiologist. <AttendingPhy></AttendingPhy> <FamilyPhy>[employer], [place]</FamilyPhy> <PrimaryPhy> Frances DOHERTY</PrimaryPhy> <UnitNumber>[id number]</UnitNumber> <VisitNumber> [id number]</VisitNumber> <PatientName>MITA FLETCHER [id number]</PatientName> < DateOfBirth>1945</DateOfBirth> <Location>C.EDB</Location> <ServiceDate></ServiceDate> <MNE>ESINDI</MNE> <OrderingPhy>William Gooden MD</OrderingPhy> < OrderingPhyMNE>f rep ord dr lazar</OrderingPhyMNE> <DictatingPhyMNE>f rep dict dr lazar</DictatingPhyMNE> <CCListMNE>f rep ct mne</CCListMNE> <AdmittingPhyMNE>f pt admit dr lazar</AdmittingPhyMNE> <AttendingPhyMNE>f pt attend dr lazar</ AttendingPhyMNE> <ConsultingPhyMNE>f pt consult dr lazar</ConsultingPhyMNE> <FamilyPhyMNE>f pt fam dr lazar</FamilyPhyMNE> <OtherPhyMNE>f pt other dr lazar</OtherPhyMNE> < PrimaryPhyMNE>f pt prim care dr lazar</PrimaryPhyMNE> <ReferringPhyMNE>f pt referring dr lazar</ReferringPhyMNE> Patient Name: MITA FLETCHER [id number] Unit Number: [id number] Dictated: 10/18/161600 Transcribed: 10/18/16 160 MS Printed Date/Time: [~ rep prt dt]/[~ rep prt tm] [~ rep ct labl] - [~ rep ct ivnm] [facility] [place] [address] Dictated: 10/18/161600 Transcribed: 10/18/16 160 MS Printed Date/Time: [~ rep prt dt]/[~ rep prt tm] [~ rep ct labl] - [~ rep ct ivnm] BILATERAL LOWER EXTREMITY VENOUS DOPPLER HISTORY: Pain. Edema. dv COMPARISON STUDY: None. FINDINGS: The right leg shows normal venous flow throughout. Compressibility and augmentation characteristics are unremarkable. Left leg is remarkable for deep venous thrombosis involving left popliteal vein as well as the compared peroneal veins inferior to the knee. IMPRESSION: 1. Acute deep venous thrombosis left leg, involving the left popliteal vein and peroneal veins. 2. Negative right leg. Electronically signed by: Domo Lucas M.D. 10/18/2016 4:02 PM Dictated Date/Time: 10/18/2016 4:01 PM The status of this report is Signed. Draft = Not yet reviewed or approved by Radiologist. Signed = Reviewed and approved by Radiologist. <AttendingPhy>Danyelle Reid DO</AttendingPhy> <FamilyPhy>SCI harmeet</ FamilyPhy> <PrimaryPhy>[employer], Frances</PrimaryPhy> <UnitNumber>[id number]</ UnitNumber> <VisitNumber>[id number]</VisitNumber> <PatientName>MITA FLETCHER [id number]</PatientName> <DateOfBirth>1945</DateOfBirth> <Location>C.MSICU</ Location> <ServiceDate>10/17/16</ServiceDate> <MNE>ESINDI</MNE> <OrderingPhy> William Gooden MD</OrderingPhy> <OrderingPhyMNE>f rep ord dr lazar</OrderingPhyMNE> < DictatingPhyMNE>f rep dict dr lazar</DictatingPhyMNE> <CCListMNE>f rep ct tatyanae</ CCListMNE> <AdmittingPhyMNE>f pt admit dr lazar</AdmittingPhyMNE> <AttendingPhyMNE >f pt attend dr lazar</AttendingPhyMNE> <ConsultingPhyMNE>f pt consult dr lazar</ConsultingPhyMNE> <FamilyPhyMNE>f pt fam dr lazar</FamilyPhyMNE> <OtherPhyMNE>f pt other dr lazar</OtherPhyMNE> < PrimaryPhyMNE>f pt prim care dr lazar</PrimaryPhyMNE> <ReferringPhyMNE>f pt referring dr lazar</ReferringPhyMNE> Patient Name: MITA FLETCHER [id number] Unit Number: [id number] Dictated: 10/20/16914 Transcribed: 10/20/16914 ARG Printed Date/Time: [~ rep prt dt]/[~ rep prt tm] [~ rep ct labl] - [~ rep ct ivnm] [facility] [place] [address] Dictated: 10/20/16914 Transcribed: 10/20/16914 ARG Printed Date/Time: [~ rep prt dt]/[~ rep prt tm] [~ rep ct labl] - [~ rep ct ivnm] ARTERIAL DOPPLER ULTRASOUND OF THE LEFT LOWER EXTREMITY CLINICAL HISTORY: Cyanosis of the toes. Hypercoagulable state. Poor pedal pulses. COMPARISON STUDY: No previous studies for comparison. FINDINGS: There is monophasic flow present within the left common femoral artery. There is monophasic flow present within the left superficial femoral artery. The left mid popliteal artery is occluded. There is monophasic flow present within the anterior tibial and posterior tibial arteries. The peroneal artery was nonvisualized./ IMPRESSION: Occlusion of the mid to distal left popliteal artery. The appearance is suggestive of an acute thrombosis/embolus. Electronically signed by: Aramis Lassiter M.D. 10/20/2016 9:19 AM Dictated Date/Time: 10/20/2016 9:15 AM The status of this report is Signed. Draft = Not yet reviewed or approved by Radiologist. Signed = Reviewed and approved by Radiologist. <AttendingPhy>Alexander Cerna D.O.</AttendingPhy> <FamilyPhy>Frances DOHERTY</ FamilyPhy> <PrimaryPhy>Frances DOHERTY</PrimaryPhy> <UnitNumber>[id number]</ UnitNumber> <VisitNumber>[id number]</VisitNumber> <PatientName>MITA FLETCHER [id number]</PatientName> <DateOfBirth>1945</DateOfBirth> <Location>C.2T</ Location> <ServiceDate>10/17/16</ServiceDate> <MNE>ESINDI</MNE> <OrderingPhy> Domo Lamar MD</OrderingPhy> <OrderingPhyMNE>f rep ord dr lazar</ OrderingPhyMNE> <DictatingPhyMNE>f rep dict dr lazar</DictatingPhyMNE> <CCListMNE> f rep ct mne</CCListMNE> <AdmittingPhyMNE>f pt admit dr lazar</AdmittingPhyMNE> < AttendingPhyMNE>f pt attend dr lazar</AttendingPhyMNE> <ConsultingPhyMNE>f pt consult dr lazar</ConsultingPhyMNE> <FamilyPhyMNE>f pt fam dr lazar</FamilyPhyMNE> <OtherPhyMNE>f pt other dr lazar</OtherPhyMNE> < PrimaryPhyMNE>f pt prim care dr lazar</PrimaryPhyMNE> <ReferringPhyMNE>f pt referring dr lazar</ReferringPhyMNE> Patient Name: MITA FLETCHER [id number] Unit Number: [id number] Dictated: 10/20/162135 Transcribed: 10/20/162135 [facility] Printed Date/Time: [~ rep prt dt]/[~ rep prt tm] [~ rep ct labl] - [~ rep ct ivnm] [facility] [place] [address] Dictated: 10/20/162135 Transcribed: 10/20/162135 [facility] Printed Date/Time: [~ rep prt dt]/[~ rep prt tm] [~ rep ct labl] - [~ rep ct ivnm] CTA OF THE ABDOMEN/PELVIS/BILATERAL LOWER EXTREMITIES WITH INTRAVENOUS CONTRAST HISTORY: Decreased pedal pulses. Left popliteal artery occlusion. TECHNIQUE: Multiaxial CT images of the abdomen, pelvis, bilateral lower extremities were performed following the use of intravenous contrast to evaluate the arterial structures. Maximal intensity projection images were also obtained. COMPARISON STUDY: Left leg arterial Doppler study 10/20/2016. FINDINGS: No significant stenosis or occlusion within the celiac, superior mesenteric, inferior mesenteric, or renal arteries. The abdominal aorta is normal in caliber. There is moderate to severe calcified and soft plaque within the infrarenal abdominal aorta. This results in mild to moderate luminal narrowing. Moderate atherosclerotic plaque within the iliac arteries. The bilateral common iliac arteries are patent. Multifocal [id number] stenosis within the bilateral internal iliac arteries. No significant stenosis within the right external iliac artery. The left external iliac arteries completely occluded. There is reconstitution of flow within the left common femoral artery due to the inferior epigastric vessels. Scattered calcified plaque within the left superficial femoral artery without significant stenosis. There is occlusion of the mid left popliteal artery, left tibioperoneal trunk, and proximal to mid posterior tibial and peroneal arteries. Reconstitution of flow within the distal posterior tibial and peroneal arteries due to collaterals. The proximal anterior tibial artery demonstrates flow due to collateral reconstitution. However, the mid to distal anterior tibial artery and dorsalis pedis artery are occluded. Scattered calcified plaque within the right common femoral, superficial femoral, popliteal, anterior tibial, posterior tibial, and peroneal arteries. However, there is no significant stenosis or occlusion. The right dorsalis pedis artery is small in caliber but appears to be patent. Small left pleural effusion. Periosteal thickening within the lower extremities may be due to long-standing venous stasis. The liver, gallbladder, spleen, adrenal glands, and pancreas are unremarkable. An IVC filter is present. There are few punctate right renal calculi. There are 2 left renal stones with the largest measuring 1 cm. No hydronephrosis. Mild asymmetric left perinephric edema. No retroperitoneal lymphadenopathy. No bladder wall thickening. Mild presacral edema. No bowel wall thickening or obstruction. IMPRESSION: 1. Occluded left external iliac artery with reconstitution at the common femoral artery. 2. Additional sites of arterial occlusion including the left popliteal artery and within the left calf arteries as described above. 3. No significant stenosis or occlusion within the right lower extremity arterial system. 4. Small left pleural effusion. 5. Bilateral nephrolithiasis. No hydronephrosis. 6. Mild left perinephric edema which is asymmetric. This could be chronic or due to an infectious process. Recommend correlation with urinalysis. Electronically signed by: Reji Curry M.D. 10/20/2016 9:50 PM Dictated Date/Time: 10/20/2016 9:36 PM The status of this report is Signed. Draft = Not yet reviewed or approved by Radiologist. Signed = Reviewed and approved by Radiologist. <AttendingPhy>Alexander Cerna D.O.</AttendingPhy> <FamilyPhy>Frances DOHERTY</ FamilyPhy> <PrimaryPhy>Frances DOHERTY</PrimaryPhy> <UnitNumber>[id number]</ UnitNumber> <VisitNumber>[id number]</VisitNumber> <PatientName>MITA FLETCHER [id number]</PatientName> <DateOfBirth>1945</DateOfBirth> <Location>C.2T</ Location> <ServiceDate>10/17/16</ServiceDate> <MNE>ESINDI</MNE> <OrderingPhy> Olayinka Fry M.D.</OrderingPhy> <OrderingPhyMNE>f rep ord dr lazar</ OrderingPhyMNE> <DictatingPhyMNE>f rep dict dr lazar</DictatingPhyMNE> <CCListMNE> f rep ct mne</CCListMNE> <AdmittingPhyMNE>f pt admit dr lazar</AdmittingPhyMNE> < AttendingPhyMNE>f pt attend dr lazar</AttendingPhyMNE> <ConsultingPhyMNE>f pt consult dr lazar</ConsultingPhyMNE> <FamilyPhyMNE>f pt fam dr lazar</FamilyPhyMNE> <OtherPhyMNE>f pt other dr lazar</OtherPhyMNE> < PrimaryPhyMNE>f pt prim care dr lazar</PrimaryPhyMNE> <ReferringPhyMNE>f pt referring dr lazar</ReferringPhyMNE> Patient Name: MITA FLETCHER [id number] Unit Number: [id number] Dictated: 10/20/161706 Transcribed: 10/20/161747 ES Printed Date/Time: [~ rep prt dt]/[~ rep prt tm] [~ rep ct labl] - [~ rep ct ivnm] [facility] [place] [address] Dictated: 10/20/161706 Transcribed: 10/20/161747 ES Printed Date/Time: [~ rep prt dt]/[~ rep prt tm] [~ rep ct labl] - [~ rep ct ivnm] DATE OF PROCEDURE: 10/20/2016 PREOPERATIVE DIAGNOSIS: Acute pulmonary embolism despite therapeutic anticoagulation. POSTOPERATIVE DIAGNOSIS: Same. PROCEDURE: Insertion of inferior vena cava filter. SURGEON: Olayinka Fry MD DOOR WORKER: Michael Crabtree MD ANESTHESIA: Local anesthesia only. COMPLICATIONS: None. INDICATIONS FOR PROCEDURE: This is a 70-year-old gentleman who presented to the hospital just recently. He has a history of DVT. He had been maintained on Coumadin therapy. However, he presented with new pulmonary embolus. His INR at that time was greater than 2. It was also noted that he had acute on chronic left lower extremity pain and what looks to be a popliteal occlusion. For his pulmonary embolism, inferior vena cava filter was recommended. The patient consented to undergo procedure after risks, benefits, and alternatives were explained. DESCRIPTION OF PROCEDURE: The patient was brought to the endovascular suite and placed in supine position. The right neck was prepped and draped in normal sterile fashion. A timeout was performed and all parties agreed to correct patient and procedure to be performed. Appropriate surgical prophylactic antibiotics were administered within 1 hour of the incision. Under ultrasound guidance, right internal jugular vein was accessed on the first attempt with access needle. This was done after installation of local anesthetic. An angled Glidewire was advanced to the level of the iliac vein bifurcation. The sheath was advanced over the wire to the level of the distal inferior vena cava. At this sideport of the sheath, a venogram was performed. This clearly identified the iliac bifurcation as well as the right and left renal veins. Next, vena cava filter was brought onto the field and advanced through the sheath. Under fluoroscopic guidance, the filter was deployed. It did have a very slight tilt, but overall was in a good position below the level of the renal veins. All sheaths wires and catheters were then removed. Pressure was held on the neck and hemostasis was achieved. The patient was awakened and transferred to recovery room in satisfactory condition. He will undergo a CT scan this evening and then likely revascularization of his left lower extremity as early as tomorrow. Dictated: 10/20/16 1707 Transcribed: 10/20/16 1748 <Electronically signed by Michael Crabtree MD> Signed: 10/23/16 0915 ES Michael Crabtree MD <Electronically signed by Olayinka Fry M.D.> Olayinka Fry M.D. The status of this report is Signed. Draft = Not yet reviewed or approved by Medical Physician. Signed = Reviewed and approved by Medical Physician. Patient Name: MITA FLETCHER [id number] Unit Number: [id number] Dictated: 10/21/161132 Transcribed: 10/21/161132 PAJ Printed Date/Time: [~ rep prt dt]/[~ rep prt tm] [~ rep ct labl] - [~ rep ct ivnm] [facility] [place] [address] Dictated: 10/21/161132 Transcribed: 10/21/161132 PAJ Printed Date/Time: [~ rep prt dt]/[~ rep prt tm] [~ rep ct labl] - [~ rep ct ivnm] CHEST ONE VIEW PORTABLE HISTORY: RIJ line placement, ett placement. COMPARISON: Chest 10/18/2016. FINDINGS: Endotracheal tube terminates 4.7 cm from the eli. Right jugular central venous catheter terminates in the SVC. Left subclavian catheter terminates at the brachiocephalic/SVC junction. This is unchanged in position. No pneumothorax. A right azygos lobe is again noted. Diffuse interstitial thickening has progressed consistent with pulmonary edema. Bibasilar airspace opacities have also progressed. Small right pleural effusion. The heart is normal in size. IMPRESSION: 1. Satisfactory support line placement. No pneumothorax. 2. Progression of the pulmonary edema and bibasilar airspace opacities.. Small right pleural effusion, unchanged. Electronically signed by: Reji Curry M.D. 10/21/2016 11:34 AM Dictated Date/Time: 10/21/2016 11:33 AM The status of this report is Signed. Draft = Not yet reviewed or approved by Radiologist. Signed = Reviewed and approved by Radiologist. <AttendingPhy>Alexander Cerna D.O.</AttendingPhy> <FamilyPhy>SCIFrances</ FamilyPhy> <PrimaryPhy>[employer], Frances</PrimaryPhy> <UnitNumber>[id number]</ UnitNumber> <VisitNumber>[id number]</VisitNumber> <PatientName>MITA FLETCHER [id number]</PatientName> <DateOfBirth>1945</DateOfBirth> <Location>[facility]</ Location> <ServiceDate>10/17/16</ServiceDate> <MNE>ESINDI</MNE> <OrderingPhy> Juve Bravo MD</OrderingPhy> <OrderingPhyMNE>f rep ord dr lazar</ OrderingPhyMNE> <DictatingPhyMNE>f rep dict dr lazar</DictatingPhyMNE> <CCListMNE> f rep ct mne</CCListMNE> <AdmittingPhyMNE>f pt admit dr lazar</AdmittingPhyMNE> < AttendingPhyMNE>f pt attend dr lazar</AttendingPhyMNE> <ConsultingPhyMNE>f pt consult dr lazar</ConsultingPhyMNE> <FamilyPhyMNE>f pt fam dr lazar</FamilyPhyMNE> <OtherPhyMNE>f pt other dr lazar</OtherPhyMNE> < PrimaryPhyMNE>f pt prim care dr lazar</PrimaryPhyMNE> <ReferringPhyMNE>f pt referring dr lazar</ReferringPhyMNE> (Chivo Ruvalcaba MD) Medication Reconciliation New Medications: Enoxaparin (Lovenox) 60 Mg/0.6 Ml Inj 60 MG SQ Q12 for 30 Days, SYR Amiodarone HCl (Amiodarone HCl) 200 Mg Tab 200 MG PO BID for 30 Days, #60 TAB Metoprolol Tartrate (Lopressor) 25 Mg Tab 12.5 MG PO BID for 30 Days, #30 TAB Continued Medications: Acetaminophen (Tylenol) 325 Mg Tab 650 MG PO TID PRN for Pain or Fever, TAB Aclidinium [place] (Tudorza Pressair) 400 Mcg/Act Aer 1 PUFF INH BID Albuterol Hfa (Ventolin Hfa) 200 Puffs/41087 Mcg Aers 2 PUFFS INH QID PRN for SOB/Wheezing, INHALER Ciclesonide (Alvesco) 160 Mcg/Act Aer 1 PUFF PO BID Guaifenesin (Guaifenesin) 400 Mg Tab 400 MG PO TID Levothyroxine Sodium (Synthroid) 75 Mcg Tab 225 MCG PO DAILY, TAB 3 TABLETS DAILY Loperamide Hcl (Imodium) 2 Mg Cap 2 MG PO BID, CAP Loratadine (Claritin) 10 Mg Tab 10 MG PO DAILY, TAB Nortriptyline (Pamelor) 10 Mg Cap 10 MG PO HS CRUSH Omeprazole (Omeprazole) 20 Mg Tab 40 MG PO DAILY, TAB Ondansetron Hcl (Zofran) 8 Mg Tab 8 MG PO TID PRN for Nausea, TAB Discontinued Medications: Sotalol Hcl (Sotalol Hcl) 80 Mg Tab 80 MG PO BID, TAB Warfarin Sodium (Coumadin) 6 Mg Tab 6 MG PO HS, TAB Discharge Exam Patient was seen at the bedside. His SOB has improved. Denied any chest pain. Complains of left leg pain (3/10). He is tolerating food well. Review of Systems: Constitutional: No fever Respiratory: + cough, + shortness of breath (baseline), + sputum Cardiovascular: No chest pain, No edema Abdomen: No constipation, No diarrhea, No nausea, No pain, No vomiting Musculoskeletal: No calf pain, No swelling Integumentary: No rash Physical Exam: General Appearance: WD/WN, no apparent distress Neck: supple, trachea midline Respiratory/Chest: chest non-tender, lungs clear, no respiratory distress, no accessory muscle use, + decreased breath sounds Cardiovascular: regular rate, rhythm, no edema Abdomen / GI: normal bowel sounds, non tender, soft Extremities: no calf tenderness, no pedal edema, + pertinent finding (left BKA) Neurologic/Psychiatric: alert, normal mood/affect, oriented x 3 Skin: normal color, warm/dry (Chivo Ruvalcaba MD) Review of Systems: Constitutional: No fever Respiratory: + shortness of breath (baseline) Cardiovascular: No chest pain Abdomen: No pain Musculoskeletal: + problem reported (left BKA) Physical Exam: General Appearance: no apparent distress Respiratory/Chest: no respiratory distress, + decreased breath sounds Cardiovascular: regular rate, rhythm Extremities: + pertinent finding (left BKA) Neurologic/Psychiatric: alert, oriented x 3 Skin: warm/dry (Marya Fleming M.D.) Hospital Course This is a 70 year old male prisoner with h/o of smoking, permanent a.flutter on warfarin, COPD on 2-4L O2 in detention, and rectal SCC s/p chemo-radiation therapy presented to the hospital with SOB, cough, hemoptysis X2-3days. On chest CTA found to have LLL consolidation and multiple PE's. * Pulmonary Embolism/DVT/Arterial occlusion - CTA showed multiple PEs despite he was on Coumadin and his INR was supratherapeutic (3.7). DVT was noted on the popliteal and peroneal veins. Patient was started on heparin drip. Angiography CT showed occluded left external iliac artery and left popliteal artery. Because of failure of repeat surgical revascularization, patient had left BKA. Pain was managed with PO oxycodone and gabapentin. IVC filter was placed on 10/20. - Patient was discharged on Lovenox 1mg/kg BID per heme/onc recommendation. Follow up with heme/onc in 3-4 weeks. Also follow up with vascular surger in 2- 3weeks for the removal of the avelino. * Hypercoagulable State suspicious for Malignancy - Patient had recurrent VTE despite on Coumadin with supratherapeutic INR , which raises red flag for possible malignancy. Heme/Onc was consulted. Patient had hx of rectal SCC s/p radiation and chemo therapy. Discussed the case with Dr. Murphy, he recommended antiphospholipid antibody to rule out APLS, which can present with both arterial and venous thrombosis. Results of anticardiolipin Ab and Beta-2 GPI ab are pending. Recommended repeat of the chest CT as outpatient. Dr. Murphy will follow up with him in 3-4weeks for further management. * Hypoxic Respiratory Failure - Over the course of his hospital stay, patient had hypoxic respiratory failure after left lower extremity embolectomy. Patient was admitted to ICU and intubated for short period of time. Desaturation suspected to be due to mucus plugs LLL s/p bronchoscopy (10/23, 10/25), with suction. Bronchial washings negative for growth, MRSA swab negative. Patient was on 3.5L of oxygen on discharge which is his baseline. * Chronic Afib/Aflutter - Patient was on Sotalol in detention; however have to hold it given low BP on admission. Cardiology was consulted. Patient was started on Amiodarone drip and metoprolol 12.5mg BID. Eventually transitioned to PO Amiodarone 400mg BID X7days then 200mg BID. Patient was discharged on Amiodarone 200mg BID X24ccge then 200mg daily and metoprolol 12.5mg BID. D/luann sotalol. * LLL consolidation - Patient does not clinically present with aspiration but as he has bilateral posterior lower lobe infiltrates left greater than right. Patient was started on antibiotic for possible aspiration pneumonia with anaerobic coverage. He received full course of antibiotics. BCx and sputum culture were negative. Patient was also on flutter valve, chest physiotherapy, incentive spirometry and neb treatment. Pulmonary was consulted and was followed through out his hospital course. * Diarrhea - Symptoms resolved on discharge. Nonobstructive bowel pattern was noted on abdominal X-ray. C.diff was negative and there was no stool leuks. Stool culture negative. HIV negative. IGA in normal range. Stool O&P results pending. Potassium was replete. Total Time Spent: Greater than 30 minutes This includes examination of the patient, discharge planning, medication reconciliation, and communication with other providers. (Chivo Ruvalcaba MD) I have reviewed the medical record and performed a history and physical examination of this patient today. I have discussed the case with Dr. Ruvalcaba. The above note reflects my findings, conclusions, and recommendations. Total Time Spent: Greater than 30 minutes (40) (Marya Fleming M.D.) Discharge Instructions Please refer to the electronic Patient Visit Report (Discharge Instructions) for additional information. (Chivo Ruvalcaba MD) Resident Tracking Resident Involvement: Resident Care Provided Care Provided: Adult Hospital Medicine (Chivo Ruvalcaba MD)
[2016-11-04 14:32] LABS: CRYPTOSPORIDIUM AG TC 37213 NOT DETECTED (NOT DETECTED); ISOSPORA+CYCLOSPORA NOT DETECTED; O&P GIARDIA AG NOT DETECTED (NOT DETECTED)
[2016-11-05 23:45] LABS: B2 GLYCOPROTEIN IGA <9 SAU (<=20); B2 GLYCOPROTEIN IGG <9 SGU (<=20); B2 GLYCOPROTEIN IGM <9 SMU (<=20)
[2016-11-27] MEDS ORDERED: ENOX60IN SQ (08:46)
[2016-12-16] MEDS ORDERED: LORA-741 PO (09:33)
[2016-12-16] MEDS ORDERED: RXNS10 PO (09:33)
[2016-12-16] MEDS ORDERED: SCOP1.5D2 TD (09:33)
== END 2016-11-03 17:09 | DRG 166 ==
LOC: ENRESERVTM → ENRESERVDT → EDBD 23:46 → C.EDB 23:48 → C.MSICU 10-18 06:37 → C.2T 10-19 14:24 → C.MSICU 10-21 10:09 → C.2T 10-31 10:43 → C.3E 11-01 18:18
PROVIDERS: ADMIT Internal Medicine; ATTEND Family Medicine
PROC: 06H03DZ Insertion of Intraluminal Device into Inferior Vena Cava, Percutaneous Approach (ICD-10-PCS; 2016-10-21)
PROC: 04CN3ZZ Extirpation of Matter from Left Popliteal Artery, Percutaneous Approach (ICD-10-PCS; principal; 2016-10-21 07:30)
PROC: 04CD3ZZ Extirpation of Matter from Left Common Iliac Artery, Percutaneous Approach (ICD-10-PCS; principal; 2016-10-21 07:30)
PROC: 04UL3KZ Supplement Left Femoral Artery with Nonautologous Tissue Substitute, Percutaneous Approach (ICD-10-PCS; principal; 2016-10-21 07:30)
PROC: 04CL3ZZ Extirpation of Matter from Left Femoral Artery, Percutaneous Approach (ICD-10-PCS; principal; 2016-10-21 07:30)
PROC: 04CS0ZZ Extirpation of Matter from Left Posterior Tibial Artery, Open Approach (ICD-10-PCS; 2016-10-22)
PROC: 04CN0ZZ Extirpation of Matter from Left Popliteal Artery, Open Approach (ICD-10-PCS; 2016-10-22)
PROC: 047S0ZZ Dilation of Left Posterior Tibial Artery, Open Approach (ICD-10-PCS; 2016-10-22)
PROC: 04CL0ZZ Extirpation of Matter from Left Femoral Artery, Open Approach (ICD-10-PCS; 2016-10-22)
PROC: 04CD3ZZ Extirpation of Matter from Left Common Iliac Artery, Percutaneous Approach (ICD-10-PCS; 2016-10-22)
PROC: 04CL3ZZ Extirpation of Matter from Left Femoral Artery, Percutaneous Approach (ICD-10-PCS; 2016-10-22)
PROC: 0B9J8ZZ Drainage of Left Lower Lung Lobe, Via Natural or Artificial Opening Endoscopic (ICD-10-PCS; 2016-10-23)
PROC: 0Y6J0Z1 Detachment at Left Lower Leg, High, Open Approach (ICD-10-PCS; 2016-10-28)
DX: I26.99 Other pulmonary embolism without acute cor pulmonale (principal); I82.432 Acute embolism and thrombosis of left popliteal vein; I48.92 Unspecified atrial flutter; J96.01 Acute respiratory failure with hypoxia; E87.1 Hypo-osmolality and hyponatremia; J44.1 Chronic obstructive pulmonary disease with (acute) exacerbation; I82.890 Acute embolism and thrombosis of other specified veins; J44.0 Chronic obstructive pulmonary disease with (acute) lower respiratory infection; J69.0 Pneumonitis due to inhalation of food and vomit; I48.0 Paroxysmal atrial fibrillation; K59.00 Constipation, unspecified; E03.9 Hypothyroidism, unspecified; Z85.038 Personal history of other malignant neoplasm of large intestine; Z87.891 Personal history of nicotine dependence; N20.0 Calculus of kidney; Z79.01 Long term (current) use of anticoagulants; T87.54 Necrosis of amputation stump, left lower extremity; I96 Gangrene, not elsewhere classified; Z89.512 Acquired absence of left leg below knee; I48.91 Unspecified atrial fibrillation; J44.9 Chronic obstructive pulmonary disease, unspecified; Y83.5 Amputation of limb(s) as the cause of abnormal reaction of the patient, or of later complication, without mention of misadventure at the time of the procedure; Y92.149 Unspecified place in prison as the place of occurrence of the external cause

== ENCOUNTER 2016-11-27 07:22 | Inpatient (IN) | payer OTHER ==
[2016-11-27] VITALS (9 sets, daily range): BP systolic 101–119; BP diastolic 59–70; PULSE 79–94; TEMP 36.6–37.1; O2SAT 92–100; Ht 172.7 cm; Wt 63.7 kg
[~2016-11-27] VITALS: Ht 172.7 cm; Wt 63.7 kg
[~2016-11-27 07:22] MED LIST changes: +ACET-1311 PO; -BTP80 PO; +CEFAZOLIN 1000MG/55 ML D5W IV SCH; -CLOP1TAB15 PO; +CRD200 PO; +ENOX60IN SQ; +GUAI400T44 PO; +LACTATED RINGER'S 1000ML 1,000 ML IV SCH; +LEVO75TA PO; +LPR25 PO; +OMEP20TA PO; +ONDA8TAB6 PO; -OXGN; -SYN75 PO; -WARF6TAB PO; -ZNTT/150 PO
[2016-11-27 07:45] LABS: BASO % 0.2 %; BASO ABS # 0.03 K/uL (0-0.2); EOS % 0.1 %; HEMATOCRIT 35.6 % (42-52); IG% 1.5 %; LYMPH % 7.3 %; LYMPH ABS # 1.27 K/uL (1.2-3.4); MEAN CELL VOLUME 90.8 fL (80-100); MEAN CORPUSCULAR HEMOGLOBIN 28.8 pg (25-34); MEAN PLATELET VOLUME 9.3 fL (7.4-10.4); MONO % 4.5 %; NEUT % 86.4 %; PLATELET COUNT 279 K/uL (130-400); RED BLOOD COUNT 3.92 M/uL (4.7-6.1); WHITE BLOOD COUNT 17.51 K/uL (4.8-10.8)
[2016-11-27 07:48] LABS: COMPLETE YES; MEAN CORPUSCULAR HGB CONC 31.7 g/dl (32-36)
[2016-11-27 07:54] LABS: PARTIAL THROMBOPLASTIN RATIO 1.5; PROTHROMBIN TIME (PATIENT) 10.8 SECONDS (9.0-12.0)
--- NOTE | 2016-11-27 08:13 | History and Physical ---
History & Physical Date of Service Nov 27, 2016. History & Physical Chief Complaint Gangrene left BKA History of Present Illness The patient is a 70 year old male admitted with DVT and PE with failed anticoagulation therapy. Complains of 50 to 100 yds before he gets SOB. Does not claudicate. He does hang his feet over the side of the bed at night for relief for the last two months. He was noticed to have a colder left foot yesterday by the primary service. There is doppler on the left of peroneal and PT as well as the popliteal. Sounds are monophasic. No ulcers noted. He underwent limb salvage which was not successful. He then had a BKA. When he returned to the office his stump was necrotic. Allergies Coded Allergies: Aspirin (Verified Allergy, Unknown, 09/03/16) Procaine (Verified Allergy, Unknown, 09/03/16) Rosuvastatin (Verified Allergy, Unknown, UNKNOWN, 09/03/16) Home Medications Scheduled Aclidinium [place] (Tudorza Pressair), 1 PUFF INH BID Ciclesonide (Alvesco), 1 PUFF PO BID Guaifenesin (Guaifenesin), 400 MG PO TID Levothyroxine Sodium (Synthroid), 225 MCG PO DAILY Loperamide Hcl (Imodium), 2 MG PO BID Loratadine (Claritin), 10 MG PO DAILY Nortriptyline (Pamelor), 10 MG PO HS Omeprazole (Omeprazole), 40 MG PO DAILY Sotalol Hcl (Sotalol Hcl), 80 MG PO BID Warfarin Sodium (Coumadin), 6 MG PO HS Scheduled PRN Acetaminophen (Tylenol), 650 MG PO TID PRN for Pain or Fever Albuterol Hfa (Ventolin Hfa), 2 PUFFS INH QID PRN for SOB/Wheezing Ondansetron Hcl (Zofran), 8 MG PO TID PRN for Nausea Problem List Medical Problems: (1) Afib (2) Anticoagulation goal of INR 2 to 3 (3) Atrial flutter with rapid ventricular response (4) Atrial flutter, chronic (5) COPD (chronic obstructive pulmonary disease) (6) Hemoptysis (7) Hypothyroidism (8) PVD (peripheral vascular disease) Surgical / Medical History Hx Cardiac Surgery: No Hx Abdominal Surgery: Yes (appy) Hx Cancer Surgery: No Hx Thoracic Surgery: No Hx Orthopedic: Yes (C-spine via anterior approach) Hx Urinary Tract Surgery: No Family History No pertinent family history Social History Smoking Status: Former Smoker (40-sstz-jovh history) Hx Tobacco Use In Past Year?: Yes (2 pack/day 20+ years) Hx Alcohol Use - Type & Amnt: No Hx Substance Use -Type & Amnt: No Review of Systems Constitutional: No chills, No diaphoresis, No fatigue, No fever, No malaise, No problem reported, No sweats, No weakness, No weight gain, No weight loss Respiratory: + short of breath Cardiovascular: No chest pain, No chest pressure, No chest tightness, No cyanosis, No diaphoresis, No edema, No intermittent claudication, No lightheadedness, No mumur, No orthopnea, No palpitations, No paroxysmal nocturnal dyspnea, No problem reported, No syncope Gastrointestinal: No abdominal pain, No anorexia, No appetite changes, No belching, No constipation, No diarrhea, No dysphagia, No flatulence, No food intolerance, No heartburn, No hematemesis, No hematochezia, No hemorrhoids, No indigestion, No nausea, No problem reported, No rectal bleeding, No stool changes, No vomiting Musculoskeletal: + back pain Neurologic: No LOC, No dizziness, No headache, No lethargy, No memory loss, No numbness, No paresthesia, No pre-existing deficit, No problem reported, No seizures, No tics, No tingling, No tremors, No vertigo, No weakness Psychiatric: No alcohol abuse, No anxiety, No auditory hallucinations, No depression, No drug abuse, No homicidal ideation, No mood changes, No problem reported, No suicidal ideation, No visual hallucinations Physical Exam Constitutional: Level of Distress: NAD Ambulation: limited ambulation Psychiatric: Mental Status: active & alert, normal mood, normal affect Orientation: oriented except where noted, to time, to place, to person Memory: recent memory normal, remote memory normal Lungs: Auscultation: breath sounds normal, decreased breath sounds Cardiovascular: Heart Auscultation: RRR, pertinent finding (a fib) Peripheral Pulses: Radial Pulse: normal on the left, normal on the right Femoral Pulse: normal on the right, normal on left Posterior Tibialis Pulse: normal on the right, Dorsalis Pedis Pulse: absent on the left, Inspection & Palpation: soft Musculoskeletal: normal Extremities: Upper Right: no cyanosis, no edema, no varicosities, no palpable cord, no clubbing, no ulcers, no mottling Upper Left: no cyanosis, no edema, no palpable cord, no clubbing, no ulcers , no mottling Lower Right: pertinent finding (pale) Lower Left: pertinent finding necrotic BKA Neurologic: Cranial Nerves: grossly intact Sensation: abnormal (hypersensitive) Assessment and Plan Imp: Left BKA gangrene Lower extremity DVT and PE Plan: Patient admitted for a left AKA. I have discussed the risks options and benefits of the procedure with the patient. The patient understands the risks options and benefits and agrees to the procedure.
[2016-11-27] MEDS ORDERED: MIDAZOLAM HCL 1 MG/ML 2ML VIAL ONE (08:31)
[2016-11-27] MEDS ORDERED: FENTANYL CITRATE INJ 50 MCG/1 ML 2 ML VIAL ONE ×3 (08:31→10:52)
[2016-11-27] MEDS ORDERED: LIDOCAINE HCL 2% 2 ML VIAL (20MG/ML) ONE (08:31)
[2016-11-27] MEDS ORDERED: ONDANSETRON INJ 2 MG/ML 2 ML VIAL ONE (08:31)
[2016-11-27] MEDS ORDERED: LACTATED RINGER'S 1000ML 1,000 ML IV PRN (08:31)
[2016-11-27] MEDS ORDERED: PROPOFOL IV EMULSION 10 MG/ML 20 ML VIAL IV ONE (08:31)
[2016-11-27] MEDS ORDERED: DEXAMETHASONE SOD INJ 4 MG/ML VIAL ONE (08:31)
[2016-11-27] MEDS ORDERED: KETAMINE HCL INJ 50 MG/ML 10 ML VIAL ONE (08:32)
[2016-11-27] MEDS ORDERED: FENTANYL CITRATE INJ 50 MCG/1 ML 2 ML VIAL IV PRN (08:45)
[2016-11-27] MEDS ORDERED: ONDANSETRON INJ 2 MG/ML 2 ML VIAL IV PRN ×2 (08:45→09:45)
[2016-11-27] MEDS ORDERED: ENOX60IN SQ ×2 (08:46)
[2016-11-27] MEDS ORDERED: CEFAZOLIN SOD 1 GM VIAL ONE (09:02)
--- NOTE | 2016-11-27 09:41 | [facility] Post Operative Brief Note ---
Immediate Operative Summary Operative Date Nov 27, 2016. Pre-Operative Diagnosis Left below the knee gangrene Post-Operative Diagnosis Left below the knee gangrene Procedure(s) Performed Left above the knee amputation Surgeon Dr. Olayinka Zamora [employer] Architect Surgeon(s) Danna Altman PA-C, Lenore Alvarez PA-C Estimated Blood Loss 150ML Findings viable muscle in thigh Specimens A: Amputated left knee bone and tissue Anesthesia Gen Complication(s) None Disposition Recovery Room / PACU
[2016-11-27] MEDS ORDERED: MoRPHine SULFATE 4 MG/ML 1 ML CARP\\VIAL IV PRN (09:45)
[2016-11-27] MEDS ORDERED: ENOXAPARIN 60 MG/0.6 ML SYR SQ SCH (09:45)
[2016-11-27] MEDS ORDERED: ALBUTEROL HFA 8 GM INHALER INH PRN (09:45)
[2016-11-27] MEDS ORDERED: ONDANSETRON 8 MG TAB PO PRN (09:45)
[2016-11-27] MEDS ORDERED: ACETAMINOPHEN 325 MG TAB PO PRN (09:45)
--- NOTE | 2016-11-27 10:31 | OPERATIVE REPORT ---
DATE OF OPERATION: 11/27/2016 PREOPERATIVE DIAGNOSIS: Left below knee amputation gangrene. POSTOPERATIVE DIAGNOSIS: Same. PROCEDURE: Left above the knee amputation. SURGEON: Dr. Olayinka Fry. PASS WORKER: Dr. Lenore Alvarez and Danna Boswell PA-C. ANESTHESIA: General endotracheal anesthesia. FLUIDS: 700 mL of fluid. ESTIMATED BLOOD LOSS: 150. COMPLICATIONS: None apparent. CONDITION: Stable to PACU. INDICATIONS: Mr. Job Crook is a 70-year-old male with metastatic cancer who originally presented last month with acute limb ischemia. After numerous revascularization attempts his foot was deemed unsalvageable and he underwent a below knee amputation. He had been healing well until approximately 1 week ago when his stump started having significant areas of eschar and some dry gangrene. He presented to clinic and was told that his below knee amputation stump was unsalvageable and he would need to undergo revision to an above knee amputation. The patient was advised of the risks and benefits of the procedure and agreed to undergo the said procedure. OPERATION AND FINDINGS: PROCEDURE: The patient was brought into the operative suite. He was prepped and draped in usual fashion. A timeout occurred. A fish mouth incision was created. The subcutaneous fascia and muscle layers were Bovied until the femur was reached. The periosteum was retracted and the bone was transected. The remaining subcutaneous tissues along the posterior aspect were cut using an amputation knife. At this time, it was noted that the SFA was occluded and he only had minimal bleeding from his femoral vein. This was oversewn with Vicryl. Upon approximation of the flaps it was felt that the bone was too long and it was resected back approximately 3 cm using a reciprocating saw. All the edges were smoothed with a rasp and rongeur and then the hemostasis was obtained. The fascia was approximated using a 2-0 and 3-0 Vicryl and the skin was stapled. The stump was then dressed and the patient was awoken from anesthesia. He tolerated the procedure well. Dr. Fry was present and scrubbed for the entirety of this case. I attest to the content of the Intraoperative Record and any orders documented therein. Any exceptions are noted below. I, Dr. Fry was present and scurbbed for the entire procedure. [facility]
--- NOTE | 2016-11-27 10:36 | Anesthesiology Progress Note ---
Anesthesia Post Op Note Date & Time Nov 27, 2016 at 10:36 Vital Signs Pain Intensity: 0 Vital Signs Past 12 Hours Date Time Temp Pulse Resp B/P Pulse Ox O2 Delivery O2 Flow Rate FiO2 11/27/16 10:26 79 23 100 11/27/16 10:26 79 23 11/27/16 10:25 121/70 11/27/16 10:21 78 23 100 11/27/16 10:21 77 23 11/27/16 10:20 127/72 11/27/16 10:16 76 22 100 11/27/16 10:16 76 22 11/27/16 10:14 128/75 11/27/16 10:11 75 25 100 11/27/16 10:11 75 25 11/27/16 10:10 74 21 11/27/16 10:10 74 21 118/70 100 11/27/16 10:05 73 18 11/27/16 10:05 73 18 100 11/27/16 10:04 120/71 11/27/16 10:00 72 19 11/27/16 10:00 36.4 72 16 141/80 100 Mask 10 11/27/16 10:00 72 19 100 11/27/16 07:48 36.7 86 18 119/67 100 Nasal Cannula 3 Notes Mental Status: alert / awake / arousable, participated in evaluation Pt Amnestic to Procedure: Yes Nausea / Vomiting: adequately controlled Pain: adequately controlled Airway Patency, RR, SpO2: stable & adequate BP & HR: stable & adequate Hydration State: stable & adequate Anesthetic Complications: no major complications apparent Pt doing well.
[2016-11-27] MEDS ORDERED: MoRPHine SULFATE 2 MG/ML CARP IV PRN (14:30)
[2016-11-27] MEDS: GUAIFENESIN 200 MG TAB PO SCH ×2 (15:38→22:00)
[2016-11-27] MEDS: CEFAZOLIN IV 1,000 MG in DEXTROSE 5% 50ML 50 ML IV SCH ×2 (15:43→23:46)
[2016-11-27] MEDS ORDERED: CICLESONIDE PO SCH (16:00)
[2016-11-27] MEDS ORDERED: ACLIDINIUM SCH (16:00)
[2016-11-27] MEDS: OXYCODONE/ACETAMINOPHEN 5-325 TAB PO PRN (17:14)
[2016-11-27] MEDS: LOPERAMIDE HCL 2 MG CAP PO SCH (22:00)
[2016-11-27] MEDS: ENOXAPARIN 60 MG/0.6 ML SYR SQ SCH (22:00)
[2016-11-27] MEDS: METOPROLOL TARTRATE 25 MG TAB PO SCH (22:00)
[2016-11-27] MEDS: NORTRIPTYLINE HCL 10 MG CAP PO SCH (22:00)
[2016-11-27] MEDS: ACLIDINIUM BROMIDE INH SCH (23:44)
[2016-11-27] MEDS: CICLESONIDE INH SCH (23:44)
[2016-11-27] MEDS: AMIODARONE 200 MG TAB PO SCH (23:45)
[2016-11-28] VITALS (8 sets, daily range): BP systolic 86–107; BP diastolic 49–63; PULSE 76–88; TEMP 36.7–37.1; O2SAT 87–98
[2016-11-28 05:57] LABS: BASO % 0.1 %; BASO ABS # 0.01 K/uL (0-0.2); COMPLETE YES; EOS % 0.1 %; HEMATOCRIT 32.5 % (42-52); IG% 2.3 %; LYMPH % 6.7 %; LYMPH ABS # 0.93 K/uL (1.2-3.4); MEAN CELL VOLUME 91.3 fL (80-100); MEAN CORPUSCULAR HEMOGLOBIN 28.4 pg (25-34); MEAN CORPUSCULAR HGB CONC 31.1 g/dl (32-36); MEAN PLATELET VOLUME 9.5 fL (7.4-10.4); MONO % 8.2 %; NEUT % 82.6 %; PLATELET COUNT 285 K/uL (130-400); RED BLOOD COUNT 3.56 M/uL (4.7-6.1); WHITE BLOOD COUNT 13.83 K/uL (4.8-10.8)
[2016-11-28 06:25] LABS: BUN/CREATININE RATIO 22.7 (10-20); CREATININE 0.5 mg/dl (0.60-1.40); POTASSIUM 3.2 mmol/L (3.5-5.1)
[2016-11-28] MEDS: LEVOTHYROXINE 75 MCG TAB PO SCH (06:27)
[2016-11-28] MEDS ORDERED: POTASSIUM CHLR 20 MEQ / WTR 20 MEQ in PREMIXED WATER 100 ML IV ONE (07:36)
--- NOTE | 2016-11-28 07:42 | Progress Note ---
Progress Note Date of Service: Nov 28, 2016. Subjective No complaints this am, no stump pain Problem List Medical Problems: (1) Atrial flutter with rapid ventricular response Status: Acute (2) Chest pain Status: Acute (3) Dizzy Status: Acute (4) Hypotension Status: Acute (5) Hypothyroid Status: Acute (6) Left chest pressure Status: Acute (7) Pulmonary embolism Status: Acute (8) Rapid atrial fibrillation Status: Acute Objective Vital Signs Vital Signs Past 12 Hours Date Time Temp Pulse Resp B/P Pulse Ox O2 Delivery O2 Flow Rate FiO2 11/28/16 07:19 37.1 85 17 86/50 91 Nasal Cannula 2.0 92/49 11/28/16 03:15 36.8 76 16 99/55 95 Nasal Cannula 2.0 11/27/16 23:00 36.6 79 16 101/59 98 Nasal Cannula 2.0 11/27/16 20:27 94 16 112/67 92 2.0 11/27/16 20:20 Nasal Cannula 2.0 Exam VSS, but BP on the low side, Afebrile Awake and alert Drsg was changed during the night due to urine on the dressing. Potassium low. Intake & Output 8-Hour Column 11/27/16 11/27/16 11/28/16 15:59 23:59 07:59 Intake Total 850 ml 85 ml Output Total 325 ml 625 ml Balance 525 ml 85 ml -625 ml 24-Hour Column 11/28/16 07:59 Intake Total 935 ml Output Total 950 ml Balance -15 ml Laboratory and Microbiology Results Past 24 Hours Test 11/27/16 10:03 11/28/16 05:00 Range/Units Bedside Glucose 96 70-99 mg/dl White Blood Count 13.83 4.8-10.8 K/uL Red Blood Count 3.56 4.7-6.1 M/uL Hemoglobin 10.1 14.0-18.0 g/dL Hematocrit 32.5 42-52 % Mean Corpuscular Volume 91.3 80-100 fL Mean Corpuscular Hemoglobin 28.4 25-34 pg Mean Corpuscular Hemoglobin Concent 31.1 32-36 g/dl Platelet Count 285 130-400 K/uL Mean Platelet Volume 9.5 7.4-10.4 fL Neutrophils (%) (Auto) 82.6 % Lymphocytes (%) (Auto) 6.7 % Monocytes (%) (Auto) 8.2 % Eosinophils (%) (Auto) 0.1 % Basophils (%) (Auto) 0.1 % Neutrophils # (Auto) 11.41 1.4-6.5 K/uL Lymphocytes # (Auto) 0.93 1.2-3.4 K/uL Monocytes # (Auto) 1.14 0.11-0.59 K/uL Eosinophils # (Auto) 0.02 0-0.5 K/uL Basophils # (Auto) 0.01 0-0.2 K/uL RDW Standard Deviation 53.3 36.4-46.3 fL RDW Coefficient of Variation 15.9 11.5-14.5 % Immature Granulocyte % (Auto) 2.3 % Immature Granulocyte # (Auto) 0.32 0.00-0.02 K/uL Sodium Level 137 136-145 mmol/L Potassium Level 3.2 3.5-5.1 mmol/L Chloride Level 98 98-107 mmol/L Carbon Dioxide Level 34 21-32 mmol/L Anion Gap 5.0 3-11 mmol/L Blood Urea Nitrogen 11 7-18 mg/dl Creatinine 0.50 0.60-1.40 mg/dl Est Creatinine Clear Calc Drug Dose 127.4 ml/min Estimated GFR () 129.1 Estimated GFR (Non- 111.4 BUN/Creatinine Ratio 22.7 10-20 Random Glucose 86 70-99 mg/dl Calcium Level 8.0 8.5-10.1 mg/dl Microbiology Results 11/27/16 MRSA DNA Surveillance Screen - Final, Complete Specimen Negative for MRSA by DNA Probe Imp: Post left AKA Plan: Will replace K+ today. Fluid bolus this am. Probable d/c Wednesday Wound care to see for buttock ulcer.
[2016-11-28] MEDS ORDERED: SODIUM CHLORIDE 0.9% 500ML 500 ML IV SCH (07:45)
[2016-11-28] MEDS ORDERED: SODIUM CHLORIDE 0.9% 500ML 500 ML IV ONE (08:00)
[2016-11-28] MEDS: LOPERAMIDE HCL 2 MG CAP PO SCH ×2 (08:05→21:24)
[2016-11-28] MEDS: METOPROLOL TARTRATE 25 MG TAB PO SCH ×2 (08:06→21:00)
[2016-11-28] MEDS: OXYCODONE/ACETAMINOPHEN 5-325 TAB PO PRN ×3 (08:38→17:59)
[2016-11-28] MEDS: POTASSIUM CHLR 10 MEQ / WTR 10 MEQ in PREMIXED WATER 100 ML IV SCH ×2 (08:39→09:42)
[2016-11-28] MEDS: LORATADINE 10 MG TAB PO SCH (08:42)
[2016-11-28] MEDS: PANTOprazole SOD 40 MG TAB PO SCH (08:42)
[2016-11-28] MEDS: AMIODARONE 200 MG TAB PO SCH ×2 (08:42→21:24)
[2016-11-28] MEDS: GUAIFENESIN 200 MG TAB PO SCH ×3 (08:42→21:22)
[2016-11-28] MEDS: ENOXAPARIN 60 MG/0.6 ML SYR SQ SCH ×2 (08:42→21:23)
[2016-11-28] MEDS: CICLESONIDE INH SCH ×2 (08:43→21:26)
[2016-11-28] MEDS: ACLIDINIUM BROMIDE INH SCH ×2 (08:46→21:00)
[2016-11-28] MEDS: NORTRIPTYLINE HCL 10 MG CAP PO SCH (21:22)
[2016-11-29] MEDS: OXYCODONE/ACETAMINOPHEN 5-325 TAB PO PRN ×4 (04:08→19:36)
[2016-11-29] MEDS: LEVOTHYROXINE 75 MCG TAB PO SCH (06:19)
[2016-11-29 06:22] LABS: BUN/CREATININE RATIO 25.2 (10-20); CALCIUM 7.6 mg/dl (8.5-10.1); CREATININE 0.48 mg/dl (0.60-1.40); POTASSIUM 3.5 mmol/L (3.5-5.1)
[2016-11-29 06:48] VITALS: BP 107/56; PULSE 89; TEMP 36.7; O2SAT 97
[2016-11-29] MEDS: CICLESONIDE INH SCH ×2 (08:49→20:39)
[2016-11-29] MEDS: LORATADINE 10 MG TAB PO SCH (08:50)
[2016-11-29] MEDS: ENOXAPARIN 60 MG/0.6 ML SYR SQ SCH ×2 (08:51→20:40)
[2016-11-29] MEDS: AMIODARONE 200 MG TAB PO SCH ×2 (08:51→20:40)
[2016-11-29] MEDS: LOPERAMIDE HCL 2 MG CAP PO SCH ×2 (08:51→20:40)
[2016-11-29] MEDS: PANTOprazole SOD 40 MG TAB PO SCH (08:51)
[2016-11-29] MEDS: GUAIFENESIN 200 MG TAB PO SCH ×3 (08:51→20:40)
[2016-11-29 08:53] VITALS: BP 94/48; PULSE 92
[2016-11-29] MEDS: ACLIDINIUM BROMIDE INH SCH ×3 (08:53→20:44)
[2016-11-29] MEDS: METOPROLOL TARTRATE 25 MG TAB PO SCH ×2 (08:53→20:42)
--- NOTE | 2016-11-29 09:41 | Progress Note ---
Progress Note Date of Service: Nov 29, 2016. Subjective No complaints Problem List Medical Problems: (1) Atrial flutter with rapid ventricular response Status: Acute (2) Chest pain Status: Acute (3) Dizzy Status: Acute (4) Hypotension Status: Acute (5) Hypothyroid Status: Acute (6) Left chest pressure Status: Acute (7) Pulmonary embolism Status: Acute (8) Rapid atrial fibrillation Status: Acute Objective Vital Signs Vital Signs Past 12 Hours Date Time Temp Pulse Resp B/P Pulse Ox O2 Delivery O2 Flow Rate FiO2 11/29/16 08:53 92 94/48 11/29/16 06:48 36.7 89 17 107/56 97 Nasal Cannula 2.0 11/28/16 23:00 36.8 87 16 93/61 98 Nasal Cannula 2.0 Exam VSS Afebrile Incision clean and dry. No swelling. Intake & Output 8-Hour Column 11/28/16 11/29/16 11/29/16 16:00 00:00 08:00 Intake Total 1191 ml Output Total 400 ml 275 ml 250 ml Balance 791 ml -275 ml -250 ml 24-Hour Column 11/29/16 08:00 Intake Total 1191 ml Output Total 925 ml Balance 266 ml Laboratory and Microbiology Results Past 24 Hours Test 11/29/16 05:35 Range/Units Sodium Level 137 136-145 mmol/L Potassium Level 3.5 3.5-5.1 mmol/L Chloride Level 98 98-107 mmol/L Carbon Dioxide Level 34 21-32 mmol/L Anion Gap 5.0 3-11 mmol/L Blood Urea Nitrogen 12 7-18 mg/dl Creatinine 0.48 0.60-1.40 mg/dl Est Creatinine Clear Calc Drug Dose 132.7 ml/min Estimated GFR () 131.2 Estimated GFR (Non- 113.2 BUN/Creatinine Ratio 25.2 10-20 Random Glucose 98 70-99 mg/dl Calcium Level 7.6 8.5-10.1 mg/dl Imp: Post left AKA Plan: D/C tomorrow
[2016-11-29 11:04] VITALS: BP 94/48; PULSE 89; TEMP 36.7; O2SAT 96
[2016-11-29 15:15] VITALS: BP 99/53; PULSE 79; TEMP 36.7; O2SAT 98
[2016-11-29 18:58] VITALS: BP 110/55; PULSE 86; TEMP 36.8; O2SAT 91
[2016-11-29] MEDS: NORTRIPTYLINE HCL 10 MG CAP PO SCH (20:40)
[2016-11-29 20:41] VITALS: BP 103/62; PULSE 87
[2016-11-30 00:30] VITALS: BP 102/54; PULSE 90; TEMP 36.5; O2SAT 97
[2016-11-30] MEDS: OXYCODONE/ACETAMINOPHEN 5-325 TAB PO PRN ×2 (00:54→08:07)
[2016-11-30 01:58] VITALS: BP 102/54; PULSE 90; TEMP 36.5; O2SAT 97
[2016-11-30 03:54] VITALS: BP 99/55; PULSE 79; TEMP 37.1; O2SAT 90
[2016-11-30 05:56] LABS: HEMATOCRIT 31.6 % (42-52); MEAN CELL VOLUME 91.6 fL (80-100); MEAN CORPUSCULAR HEMOGLOBIN 28.4 pg (25-34); MEAN PLATELET VOLUME 9.3 fL (7.4-10.4); PLATELET COUNT 253 K/uL (130-400); RED BLOOD COUNT 3.45 M/uL (4.7-6.1); WHITE BLOOD COUNT 11.41 K/uL (4.8-10.8)
[2016-11-30] MEDS: LEVOTHYROXINE 75 MCG TAB PO SCH (06:11)
[2016-11-30 06:27] LABS: CREATININE 0.51 mg/dl (0.60-1.40)
[2016-11-30 06:51] VITALS: BP 96/48; PULSE 75; TEMP 36.8; O2SAT 91
[2016-11-30 08:00] VITALS: O2SAT 91
--- NOTE | 2016-11-30 08:17 | Anesthesiology Progress Note ---
Anesthesia Post Op Note Date & Time November 30, 2016 at 08:16 Vital Signs Vital Signs Past 12 Hours Date Time Temp Pulse Resp B/P Pulse Ox O2 Delivery O2 Flow Rate FiO2 11/30/16 06:51 36.8 75 18 96/48 91 Nasal Cannula 3.0 11/30/16 03:54 37.1 79 16 99/55 90 Nasal Cannula 2.0 11/30/16 00:30 36.5 90 16 102/54 97 Nasal Cannula 2.0 11/29/16 23:20 Nasal Cannula 2.0 11/29/16 20:41 87 103/62 Notes Mental Status: alert / awake / arousable, participated in evaluation Pt Amnestic to Procedure: Yes Nausea / Vomiting: adequately controlled Pain: adequately controlled Airway Patency, RR, SpO2: stable & adequate BP & HR: stable & adequate Hydration State: stable & adequate Anesthetic Complications: no major complications apparent
[2016-11-30] MEDS: METOPROLOL TARTRATE 25 MG TAB PO SCH (09:00)
[2016-11-30] MEDS: ACLIDINIUM BROMIDE INH SCH (09:00)
[2016-11-30] MEDS ORDERED: OXYC-57 PO (09:01)
--- NOTE | 2016-11-30 09:04 | Discharge Instructions ---
Discharge Instructions Date of Service November 30, 2016. Admission Left Leg Below Knee Amputation nonhealing with gangrene Severe Peripheral arterial disease with ischemia LLE Discharge Discharge Diagnosis / Problem: status post Left Leg Above Knee Amputation Discharge Goals Goal(s): Therapeutic intervention Activity Recommendations Activity Limitations: as noted below Increase activity as tolerated. . Instructions / Follow-Up Instructions / Follow-Up with Dr Fry or Danna Boswell PA-C in 2 weeks for staple removal. Current Hospital Diet Patient's current hospital diet: AHA Diet (Heart Healthy) Discharge Diet Recommended Diet: AHA Diet (Heart Healthy) Procedures Procedures Performed: Left above the knee amputation Pending Studies Studies pending at discharge: no Laboratory Results Hemoglobin A1c Test 10/22/16 05:38 Range/Units Estimated Average Glucose 128 mg/dl Hemoglobin A1c 6.1 H 4.5-5.6 % Medical Emergencies . Who to Call and When: Medical Emergencies: If at any time you feel your situation is an emergency, please call 911 immediately. . Non-Emergent Contact Non-Emergency issues call your: Primary Care Provider . "Provider Documentation" section prepared by Danna Boswell. . VTE Core Measure Inpt VTE Proph given/why not?: Enoxaparin (Lovenox)[facility] Drug Monitoring Program Search Results: patient reviewed within database, no issues identified
--- NOTE | 2016-11-30 09:09 | Progress Note ---
Progress Note Date of Service: November 30, 2016. Subjective 71 yo m with multiple medical problems, [facility] of L BKA stump , seen in f/u today. Pt states feeling well. Admits mild pain in [facility], but well controlled with medications. VSS, labs stable. Problem List Medical Problems: (1) Atrial flutter with rapid ventricular response Status: Acute (2) Chest pain Status: Acute (3) Dizzy Status: Acute (4) Hypotension Status: Acute (5) Hypothyroid Status: Acute (6) Left chest pressure Status: Acute (7) Pulmonary embolism Status: Acute (8) Rapid atrial fibrillation Status: Acute Objective Vital Signs Vital Signs Past 12 Hours Date Time Temp Pulse Resp B/P Pulse Ox O2 Delivery O2 Flow Rate FiO2 11/30/16 08:00 91 Nasal Cannula 2.0 11/30/16 06:51 36.8 75 18 96/48 91 Nasal Cannula 3.0 11/30/16 03:54 37.1 79 16 99/55 90 Nasal Cannula 2.0 11/30/16 00:30 36.5 90 16 102/54 97 Nasal Cannula 2.0 11/29/16 23:20 Nasal Cannula 2.0 Exam CONST: A&O x3, NAD, thin, chronically ill appearing male CHEST: RRR lungs decreased, with mild wheezing noted ABD: soft nontender, + bs x 4 quad EXT" [facility] site C/D/I with avelino. Mild local tenderness and ecchymosis. No necrosis noted. No significant edema. No drainage Intake & Output 8-Hour Column 11/29/16 11/29/16 11/30/16 15:59 23:59 07:59 Intake Total 240 ml Output Total 300 ml 450 ml 250 ml Balance -300 ml -450 ml -10 ml 24-Hour Column 11/30/16 07:59 Intake Total 240 ml Output Total 1000 ml Balance -760 ml Laboratory and Microbiology Results Past 24 Hours Test 11/30/16 05:19 Range/Units White Blood Count 11.41 4.8-10.8 K/uL Red Blood Count 3.45 4.7-6.1 M/uL Hemoglobin 9.8 14.0-18.0 g/dL Hematocrit 31.6 42-52 % Mean Corpuscular Volume 91.6 80-100 fL Mean Corpuscular Hemoglobin 28.4 25-34 pg Mean Corpuscular Hemoglobin Concent 31.0 32-36 g/dl RDW Standard Deviation 52.9 36.4-46.3 fL RDW Coefficient of Variation 15.8 11.5-14.5 % Platelet Count 253 130-400 K/uL Mean Platelet Volume 9.3 7.4-10.4 fL Creatinine 0.51 0.60-1.40 mg/dl Est Creatinine Clear Calc Drug Dose 123.2 ml/min Estimated GFR () 127.1 Estimated GFR (Non- 109.7 ASSESSMENT and PLAN: s/p LLE AKA d/t L BKA gangrene Pt doing well post op. D/C back to [facility] today. Will see in office in 2 weeks.
[2016-11-30] MEDS: CICLESONIDE INH SCH (09:15)
[2016-11-30] MEDS: LORATADINE 10 MG TAB PO SCH (09:17)
[2016-11-30] MEDS: LOPERAMIDE HCL 2 MG CAP PO SCH (09:18)
[2016-11-30] MEDS: PANTOprazole SOD 40 MG TAB PO SCH (09:18)
[2016-11-30] MEDS: GUAIFENESIN 200 MG TAB PO SCH (09:18)
[2016-11-30] MEDS: AMIODARONE 200 MG TAB PO SCH (09:18)
[2016-11-30] MEDS: ENOXAPARIN 60 MG/0.6 ML SYR SQ SCH (09:19)
[2016-11-30 09:40] VITALS: BP 96/48; PULSE 75; TEMP 36.8; O2SAT 91
--- NOTE | 2016-12-01 11:14 | DISCHARGE SUMMARY ---
ADMISSION DIAGNOSES: 1. Left lower extremity jysmi-ekd-gonb amputation site gangrene. 2. Left lower extremity ischemia. DISCHARGE DIAGNOSIS: Status post left leg trcpq-msq-hjlh amputation. DISCHARGE CONDITION: Stable. CONSULTATIONS IN THE HOSPITAL: Included none. PROCEDURES IN THE HOSPITAL: Left lower extremity gvvmf-qsz-bcar amputation performed on 11/27/2016 without any significant complications and an EBL of 150 mL. HISTORY OF PRESENT ILLNESS: Mr. Crook is a very chronically ill 71-year-old male with multiple medical problems, who was originally seen a few weeks ago due to left lower extremity arterial occlusion, attempted revascularization which was unsuccessful, and the patient subsequently underwent left leg mjtig-ntx-ests amputation. At discharge on that particular admission, his bqiim-vsd-mixh amputation site appeared to be faring very well. At that time, he was then seen in the office for a followup appointment, at which time the wounds appeared to be healing, although slowly due to all of his chronic medical problems. It was felt to be prudent to keep his avelino in for another week or so before removing them. Upon arrival in the office 1 week later, he was noted to have severe malodorous gangrene of his left lower extremity BKA site to his patella. Due to the severity of this gangrene and likelihood of an infectious process, it was recommended that he undergo scebn-yvl-objq amputation to get rid of the necrotic tissue. The procedure, risks, benefits and alternatives were discussed with the patient, he expressed understanding and agreement to proceed. HOSPITAL COURSE: The patient was admitted 11/27/2016 after undergoing his left lower extremity wisna-rlk-pfta amputation. As I said, this was performed without any significant complications and an EBL of 150 mL. He remained clinically stable and had excellent pain control. His labs remained stable as well and he was felt to be stable enough for discharge on postop day 3. PHYSICAL EXAMINATION: VITAL SIGNS: Blood pressure of 102/54 with respiratory rate of 16, pulse is 90, temperature of 36.5, and pulse oximetry of 97% on nasal cannula. CONSTITUTIONAL: The patient is a very thin, chronically ill-appearing, frail, ucuxo-fite-kezevl-age appearing male in no acute distress. He was in bed and is nonambulatory. HEAD: Normocephalic and atraumatic. EYES: EOMI. ENMT: Demonstrate no hearing loss, rhinorrhea, or pharyngeal erythema. NECK: Supple, nontender, with a midline trachea without masses or crepitus. LUNGS: Demonstrate no dyspnea. They are decreased throughout with mild sparse wheezing noted. CARDIOVASCULAR: Demonstrates regular rate and rhythm. EXTREMITIES: His peripheral pulses are full and equal in all extremities unless otherwise noted. Specifically, they are normal in his carotid, brachial and radial pulses. His left femoral is nonpalpable, his right is +2. His right foot demonstrates nonpalpable distal pulses and he has brisk capillary refill to left foot. ABDOMEN: Soft, nontender, with normoactive bowel sounds in all 4 quadrants, without guarding or rebound. There is no flank or CVA tenderness. MUSCULOSKELETAL: Demonstrates normal tone with decreased strength. Bilateral upper extremities demonstrate no cyanosis, edema, clubbing, varicosities or ulcers. His left lower extremity txztp-vqh-kyqj amputation site demonstrates no significant edema or ecchymosis noted. The wound is clean, dry and intact with avelino. It is mildly tender. There is no erythema noted and no drainage. DIET: Should be a low-cholesterol AHA diet. MEDICATIONS: Reconciled on the chart and are as per the discharge instructions. FOLLOWUP: Should be with Dr. Fry or his PA Danna Boswell within 2 weeks for reevaluation and removal of avelino. The patient was advised to call the office with any other questions or concerns.
[2016-12-16] MEDS ORDERED: SCOP1.5D2 TD (09:33)
[2016-12-16] MEDS ORDERED: LORA-741 PO (09:33)
[2016-12-16] MEDS ORDERED: RXNS10 PO (09:33)
== END 2016-11-30 10:50 | disposition home or self-care (01) | DRG 475 ==
LOC: ENRESERVTM → ENRESERVDT → C.ACU 07:22 → C.3E 09:40 → CMPBEDREQ 12:06
PROVIDERS: ADMIT Surgery Vascular Surgery; ATTEND Surgery Vascular Surgery
PROC: 0Y6D0Z3 Detachment at Left Upper Leg, Low, Open Approach (ICD-10-PCS; principal; 2016-11-27 09:15)
DX: T87.54 Necrosis of amputation stump, left lower extremity (principal); I48.92 Unspecified atrial flutter; I82.432 Acute embolism and thrombosis of left popliteal vein; I96 Gangrene, not elsewhere classified; Z89.512 Acquired absence of left leg below knee; I48.91 Unspecified atrial fibrillation; J44.9 Chronic obstructive pulmonary disease, unspecified; E03.9 Hypothyroidism, unspecified; Z87.891 Personal history of nicotine dependence; Z79.01 Long term (current) use of anticoagulants; Y83.5 Amputation of limb(s) as the cause of abnormal reaction of the patient, or of later complication, without mention of misadventure at the time of the procedure; Y92.149 Unspecified place in prison as the place of occurrence of the external cause

== ENCOUNTER 2016-12-06 02:19 | Emergency (ER) | payer OTHER ==
[~2016-12-06] VITALS: Ht 167.6 cm; Wt 50.0 kg
[~2016-12-06 02:19] MED LIST changes: -CEFAZOLIN 1000MG/55 ML D5W IV SCH; -LACTATED RINGER'S 1000ML 1,000 ML IV SCH; +OXYC-57 PO
[2016-12-06 02:29] VITALS: TEMP 36.5; Ht 167.6 cm; Wt 50.0 kg
[2016-12-06] MEDS ORDERED: METO1TAB54 PO (03:05)
[2016-12-06] MEDS ORDERED: DOCU1CAP PO (03:05)
[2016-12-06] MEDS ORDERED: AMIO200T4 PO (03:05)
[2016-12-06] MEDS ORDERED: ACET-749 PO (03:05)
[2016-12-06] MEDS ORDERED: DIPH25CA5 PO (03:05)
[2016-12-06] MEDS ORDERED: NUTR-238 PO (03:05)
[2016-12-06] MEDS ORDERED: EMOL-31 TOP (03:05)
[2016-12-06] MEDS ORDERED: LPR25 PO (03:05)
[2016-12-06 03:12] VITALS: O2SAT 97
[2016-12-06] MEDS ORDERED: SODIUM CHLORIDE 0.9% 500ML 500 ML IV STA (03:15)
[2016-12-06 03:29] LABS: BASO % 0.1 %; BASO ABS # 0.01 K/uL (0-0.2); COMPLETE YES; EOS % 0.4 %; HEMATOCRIT 35.8 % (42-52); IG% 1.6 %; LYMPH % 6.9 %; LYMPH ABS # 0.93 K/uL (1.2-3.4); MEAN CELL VOLUME 90.9 fL (80-100); MEAN CORPUSCULAR HEMOGLOBIN 28.4 pg (25-34); MEAN CORPUSCULAR HGB CONC 31.3 g/dl (32-36); MEAN PLATELET VOLUME 9.6 fL (7.4-10.4); MONO % 6.6 %; NEUT % 84.4 %; PLATELET COUNT 364 K/uL (130-400); RED BLOOD COUNT 3.94 M/uL (4.7-6.1); WHITE BLOOD COUNT 13.45 K/uL (4.8-10.8)
[2016-12-06 03:39] LABS: CREATININE 0.83 mg/dl (0.60-1.40); POTASSIUM 3.4 mmol/L (3.5-5.1)
[2016-12-06 03:44] LABS: ALB/GLOB RATIO 0.6 (0.9-2)
[2016-12-06 05:05] VITALS: BP 96/52; PULSE 82; O2SAT 99
--- NOTE | 2016-12-06 05:23 | EMERGENCY ROOM VISIT NOTE ---
ED Visit Note First contact with patient: 03:07 I saw this patient in conjunction with Sid Garza PA-C. I agree with his decision-making and treatment plan.
--- NOTE | 2016-12-06 07:09 | DIAGNOSTIC IMAGING REPORT ---
ADDENDUM Addendum: There was a voice recognition error in the findings. The third sentence should read as follows: The right internal jugular central venous catheter has been removed. Electronically signed by: Aramis Lassiter M.D. 12/07/2016 9:29 AM Dictated Date/Time: 12/07/2016 9:28 AM ORIGINAL REPORT CHEST 2 VIEWS ROUTINE CLINICAL HISTORY: Shortness of breath. Confusion. COMPARISON STUDY: 10/26/2016 FINDINGS: There is an azygos fissure. There is a catheter fragment within the left subclavian vein. The right internal jugular vein is been removed. The heart is normal in size. There is left lower lobe consolidation. There is small left pleural effusion. Right lung appears clear. Underlying emphysema is suspected.[ IMPRESSION: Small left pleural effusion and left lower lobe pulmonary consolidation. Electronically signed by: Aramis Lassiter M.D. 12/06/2016 7:08 AM Dictated Date/Time: 12/06/2016 7:06 AM
--- NOTE | 2016-12-07 01:33 | EMERGENCY ROOM VISIT NOTE ---
History First contact with patient: 03:07 Chief Complaint: RESPIRATORY PROBLEMS Stated Complaint: BREATHING DIFFICULTY Nursing Triage Summary: Patient arrived via EMs from [facility]. EMS reports patient was acting confused and had o2 saturation of 70% on 3L which he always wears. Patient had L AKA done two days ago. Surgical site is asymptomatic. Patient recieved a duoneb and 125mg of solumedrol at [facility] which restored his o2 sat to <90% on 6L NC. History of Present Illness The patient is a 71 year old male who presents to the Emergency Room with complaints of an episode of hypoxia that occurred at [facility]. The patient was reportedly confused and was unsure which cell he was expected to go to. The [facility] checked the patient's oxygen saturation, and it was reportedly 70% on 3 L. The patient does chronically wear 3 L of oxygen for COPD. The patient did have a recent left [id number] amputation, and was given a DuoNeb treatment and 125 mg of Solu-Medrol prehospital. These interventions did restore the patient's O2 saturation to normal. On presentation the patient does not have complaints. He states that sometimes he will drop into the 70s, and then returned to normal. He is not reporting chest pain or abdominal pain. No fever. He rates his discomfort a 0/10. Review of Systems More than 10 systems were reviewed and otherwise negative with the exception of history of present illness. 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, extremities (7) Hemoptysis (8) Hypothyroidism (9) PVD (peripheral vascular disease) Family History No pertinent family history Social History Smoking Status: Former Smoker Drug Use: none Marital Status: single Housing Status: other Occupation Status: other Current/Historical Medications Scheduled Aclidinium Gracey (Tudorza Pressair), 1 PUFF INH BID Amiodarone Hcl (Cordarone), 200 MG PO BID Ciclesonide (Alvesco), 1 PUFF PO BID Diphenhydramine Hcl (Benadryl), 50 MG PO QPM Emollient (Lubriskin), 1 APPLN TOP BID Enoxaparin (Lovenox), 60 MG SQ Q12H Guaifenesin (Guaifenesin), 400 MG PO TID Levothyroxine Sodium (Synthroid), 225 MCG PO DAILY Loperamide Hcl (Imodium), 2 MG PO BID Metoclopramide Hcl (Reglan), 5 MG PO AC Metoprolol Tartrate (Lopressor), 12.5 MG PO BID Nortriptyline (Pamelor), 10 MG PO HS Nutritional Supplements (Nutritional Drink), 1 CAN PO TIDM Omeprazole (Omeprazole), 40 MG PO DAILY Scheduled PRN Acetaminophen (Tylenol), 650 MG PO TID PRN for Pain or Fever Acetaminophen/Codeine (Tylenol W/Codeine #3), 1 TAB PO Q4H WHILE AWAKE PRN for Pain Albuterol Hfa (Ventolin Hfa), 2 PUFFS INH QID PRN for SOB/Wheezing Docusate Sodium (Gnp Stool Softener), 250 MG PO DAILY PRN for Constipation Ondansetron Hcl (Zofran), 8 MG PO TID PRN for Nausea Allergies Coded Allergies: Aspirin (Verified Allergy, Unknown, 12/06/16) Procaine (Verified Allergy, Unknown, 12/06/16) Rosuvastatin (Verified Allergy, Unknown, UNKNOWN, 12/06/16) Physical Exam Vital Signs Date Time Temp Pulse Resp B/P Pulse Ox O2 Delivery O2 Flow Rate FiO2 12/06/16 05:05 82 20 96/52 99 Nasal Cannula 3.0 12/06/16 04:00 78 18 115/62 96 Nasal Cannula 3.0 12/06/16 03:40 77 20 97/69 97 Nasal Cannula 3.0 12/06/16 03:12 97 Nasal Cannula 3.0 12/06/16 02:34 75 12/06/16 02:29 100 Nasal Cannula 3.0 12/06/16 02:29 36.5 75 18 87/57 100 Nasal Cannula 3.0 Pain Rating (0-10): 0 Physical Exam VITALS: Vitals are noted on the nurse's note and reviewed by myself. Vital signs stable. GENERAL: Chronically ill-appearing white male who is in no acute distress. He does mumble when speaking. HEAD: Normocephalic atraumatic. HEART: Regular rate and rhythm without murmurs gallops or rubs. LUNGS: Clear to auscultation bilaterally without wheezes, rales or rhonchi. No retractions or accessory muscle use. MUSCULOSKELETAL: No muscle atrophy, erythema, or edema noted. Left above-the- knee amputation is with intact sutures that do not appear infected. There is no redness or erythema in this area. The right lower extremity is without obvious swelling or palpable cord. NEURO: Patient was alert and oriented to person place and time. Medical Decision & Procedures ER Provider Diagnostic Interpretation: CHEST 2 VIEWS ROUTINE CLINICAL HISTORY: Shortness of breath. Confusion. COMPARISON STUDY: 10/26/2016 FINDINGS: There is an azygos fissure. There is a catheter fragment within the left subclavian vein. The right internal jugular vein is been removed. The heart is normal in size. There is left lower lobe consolidation. There is small left pleural effusion. Right lung appears clear. Underlying emphysema is suspected.[ IMPRESSION: Small left pleural effusion and left lower lobe pulmonary consolidation. Laboratory Results 12/06/16 02:52 Red Blood Count 3.94, Mean Corpuscular Volume 90.9, Mean Corpuscular Hemoglobin 28.4, Mean Corpuscular Hemoglobin Concent 31.3, Mean Platelet Volume 9.6, Neutrophils (%) (Auto) 84.4, Lymphocytes (%) (Auto) 6.9, Monocytes (%) (Auto) 6.6, Eosinophils (%) (Auto) 0.4, Basophils (%) (Auto) 0.1, Neutrophils # (Auto) 11.34, Lymphocytes # (Auto) 0.93, Monocytes # (Auto) 0.89, Eosinophils # (Auto) 0.06, Basophils # (Auto) 0.01 12/06/16 02:52 Test 12/06/16 02:52 12/06/16 02:58 12/06/16 03:23 White Blood Count 13.45 K/uL (4.8-10.8) Red Blood Count 3.94 M/uL (4.7-6.1) Hemoglobin 11.2 g/dL (14.0-18.0) Hematocrit 35.8 % (42-52) Mean Corpuscular Volume 90.9 fL (80-100) Mean Corpuscular Hemoglobin 28.4 pg (25-34) Mean Corpuscular Hemoglobin Concent 31.3 g/dl (32-36) Platelet Count 364 K/uL (130-400) Mean Platelet Volume 9.6 fL (7.4-10.4) Neutrophils (%) (Auto) 84.4 % Lymphocytes (%) (Auto) 6.9 % Monocytes (%) (Auto) 6.6 % Eosinophils (%) (Auto) 0.4 % Basophils (%) (Auto) 0.1 % Neutrophils # (Auto) 11.34 K/uL (1.4-6.5) Lymphocytes # (Auto) 0.93 K/uL (1.2-3.4) Monocytes # (Auto) 0.89 K/uL (0.11-0.59) Eosinophils # (Auto) 0.06 K/uL (0-0.5) Basophils # (Auto) 0.01 K/uL (0-0.2) RDW Standard Deviation 53.8 fL (36.4-46.3) RDW Coefficient of Variation 16.4 % (11.5-14.5) Immature Granulocyte % (Auto) 1.6 % Immature Granulocyte # (Auto) 0.22 K/uL (0.00-0.02) Anion Gap 8.0 mmol/L (3-11) Est Creatinine Clear Calc Drug Dose 59.4 ml/min Estimated GFR () 104.1 Estimated GFR (Non- 89.8 BUN/Creatinine Ratio 26.0 (10-20) Calcium Level 8.0 mg/dl (8.5-10.1) Total Bilirubin 0.3 mg/dl (0.2-1) Aspartate Amino Transf (AST/SGOT) 11 U/L (15-37) Alanine Aminotransferase (ALT/SGPT) 12 U/L (12-78) Alkaline Phosphatase 141 U/L (45-117) Pro-B-Type Natriuretic Peptide 1315 pg/ml (0-900) Total Protein 5.1 gm/dl (6.4-8.2) Albumin 2.0 gm/dl (3.4-5.0) Globulin 3.1 gm/dl (2.5-4.0) Albumin/Globulin Ratio 0.6 (0.9-2) Bedside Lactic Acid Venous 1.58 mmol/L (0.90-1.70) Bedside Troponin I 0.000 ng/ml (0-0.045) Medications Administered Medications (Trade) Dose Ordered Sig/Malcolm Route Start Time Stop Time Status Last Admin Dose Admin Sodium Chloride (Nss 500ml) 500 ml @ 999 mls/hr Q31M STAT IV 12/06/16 03:15 12/06/16 03:45 DC 12/06/16 03:40 999 MLS/HR ED Course Physical exam and history were performed. Nursing notes and EMR were reviewed. Patient appears to have had a hypoxic episode with brief confusion while in [facility] tonight. At presentation patient appears without significant distress. He is 98% on 3 L. IV access was established and labs were obtained. The patient was gently hydrated with normal saline. Chest x-ray was performed. EKG was normal sinus rhythm at [address] elevation or ectopy. The patient's blood work is as above and was reviewed. He does have a slightly elevated white blood cell count, which appears chronic for him. He is with mild anemia, also which appears chronic. Lactic acid is negative with blood cultures pending. Chest x-ray did not show overt findings on initial read, and does show an improved left lower process from previous CXR a few weeks ago. The patient remained in stable condition over several hours here in the department. He requested to be discharged on several occasions, and this does appear reasonable. I suspect the patient has a COPD exacerbation, and this can be best managed in the [place] [facility]. The patient was discharged home with [facility] personnel. Radiology did reread the x-rays in the morning, and there appears to be a consolidation of the left lower lungs. We did contact the [facility] to begin antibiotics. The patient was invited back to the ER anytime. The chart was completed utilizing [employer] Speech Voice [employer]ognition Software. Grammatical errors, random word insertions, pronoun errors, and incomplete sentences are an occasional consequence of this system due to software limitations, ambient noise, and hardware issues. Any formal questions or concerns about the content, text, or information contained within the body of this dictation should be directly addressed to the provider for clarification. . Medical Decision Differential diagnosis: Etiologies such as infections, reactive airway disease, pneumonia, pneumothorax , COPD, CHF, cardiac ischemia, pulmonary embolism, musculoskeletal, gastrointestinal, as well as others were entertained. Impression Primary Impression: COPD with exacerbation Departure Information Dispostion Home / Self-Care Condition [employer] HOME CARE DOCUMENTATION FORM, IMPORTANT VISIT INFORMATION Patient Instructions My [facility] Additional Instructions You were seen and evaluated today on an emergency basis only. This is not a substitute for, or an effort to provide, complete comprehensive medical care. It is not possible to recognize and treat all injuries or illnesses in a single emergency department visit. For this reason it is recommended that you followup with the [facility] for further care and management. Continue your medications as previously prescribed. You are welcome to return to the emergency department anytime with new, worsening, or concerning symptoms.
[2016-12-16] MEDS ORDERED: SCOP1.5D2 TD (09:33)
[2016-12-16] MEDS ORDERED: RXNS10 PO (09:33)
[2016-12-16] MEDS ORDERED: LORA-741 PO (09:33)
== END 2016-12-06 05:34 | disposition home or self-care (01) ==
LOC: EDBD 02:19 → C.EDB 02:20
DX: J44.1 Chronic obstructive pulmonary disease with (acute) exacerbation (principal); Z99.81 Dependence on supplemental oxygen; Z98.890 Other specified postprocedural states; Z89.612 Acquired absence of left leg above knee; I48.91 Unspecified atrial fibrillation; Z79.01 Long term (current) use of anticoagulants; E03.9 Hypothyroidism, unspecified; I73.9 Peripheral vascular disease, unspecified; Z87.891 Personal history of nicotine dependence; Z79.899 Other long term (current) drug therapy; D64.9 Anemia, unspecified

== ENCOUNTER 2016-12-09 12:19 | Inpatient (IN) | payer OTHER ==
[~2016-12-09] VITALS: Ht 165.1 cm; Wt 49.6 kg
[2016-12-09] VITALS (25 sets, daily range): BP systolic 78–121; BP diastolic 39–80; PULSE 78–91; TEMP 36.6–36.8; O2SAT 87–100; Ht 165.1 cm; Wt 49.6 kg
[~2016-12-09 12:19] MED LIST changes: +ACET-749 PO; +AMIO200T4 PO; -CLR10 PO; -CRD200 PO; +DIPH25CA5 PO; +DOCU1CAP PO; +EMOL-31 TOP; +METO1TAB54 PO; +NUTR-238 PO; -OXYC-57 PO
[2016-12-09] MEDS ORDERED: SODIUM CHLORIDE 0.9% 1000ML 1,000 ML IV STA (12:28)
[2016-12-09] MEDS ORDERED: ALBUT/IPRATROP 3MG/0.5MG NEB 3 ML VIAL INH ONE (12:30)
--- NOTE | 2016-12-09 12:36 | EMERGENCY ROOM VISIT NOTE ---
History Report prepared by Johnny: Juanito Vargas Under the Supervision of: Dr. Uzair Luu M.D. First contact with patient: 12:22 Stated Complaint: LOW SPO2 History of Present Illness The patient is a 71 year old male who presents to the Emergency Room with complaints of shortness of breath that began a couple of days ago. He was seen in the ED yesterday for this same reason. He was diagnosed and discharged with COPD exacerbation. When he was discharged, his oxygen saturation was 93% on 3L. This is what his current oxygen saturation is as well. Last night, he was experiencing more shortness of breath and had a systolic blood pressure of 68. He has been experiencing a cough without sputum. He denies any fevers, blood loss, or chest pain. He also has a bed sore on his buttocks. Source of History: patient, police Onset: a couple of days ago Position: other (Respiratory system) Symptom Intensity: moderate Quality: other (Shortness of breath) Timing: constant Associated Symptoms: + cough, No chest pain, No fevers Note: He denies any recent blood loss. Review of Systems See HPI for pertinent positives & negatives. A total of 10 systems reviewed and were otherwise negative. 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 Nurse's notes were reviewed and I agree with. Family History No pertinent family history Social History Smoking Status: Former Smoker Drug Use: none Marital Status: single Housing Status: other Occupation Status: other Current/Historical Medications Scheduled Aclidinium [place] (Tudorza Pressair), 1 PUFF INH BID Amiodarone Hcl (Cordarone), 200 MG PO BID Ciclesonide (Alvesco), 1 PUFF PO BID Control Gel Formula Dressing (Duoderm Cgf), 1 PATCH TD [id number] Diphenhydramine Hcl (Benadryl), 50 MG PO QPM Emollient (Lubriskin), 1 APPLN TOP BID Enoxaparin (Lovenox), 60 MG SQ Q12H Ferrous Fumarate (Hemocyte), 324 MG PO BID Guaifenesin (Guaifenesin), 800 MG PO TID Levothyroxine Sodium (Synthroid), 225 MCG PO DAILY Loperamide Hcl (Imodium), 2 MG PO BID Metoclopramide Hcl (Reglan), 5 MG PO AC Metoprolol Tartrate (Lopressor), 12.5 MG PO BID Nortriptyline (Pamelor), 10 MG PO HS Nutritional Supplements (Nutritional Drink), 1 CAN PO TIDM Omeprazole (Omeprazole), 40 MG PO DAILY Sulfamethoxazole-Trimethoprim (Bactrim Ds 800MG/160MG), 1 TAB PO BID Zinc Oxide (Topical) (Desitin Rapid Relief), 1 APPLN TOP DIRECTED Scheduled PRN Acetaminophen (Tylenol), 325 MG PO TID PRN for Pain Acetaminophen/Codeine (Tylenol W/Codeine #3), 1 TAB PO Q4H WHILE AWAKE PRN for Pain Albuterol Hfa (Ventolin Hfa), 2 PUFFS INH QID PRN for SOB/Wheezing Docusate Sodium (Gnp Stool Softener), 250 MG PO DAILY PRN for Constipation Hydrocortisone (Topical) (Hydrocortisone), 1 APPLN TOP TID PRN for RASH Ondansetron Hcl (Zofran), 8 MG PO TID PRN for Nausea Allergies Coded Allergies: Aspirin (Verified Allergy, Unknown, 12/06/16) Procaine (Verified Allergy, Unknown, 12/06/16) Rosuvastatin (Verified Allergy, Unknown, UNKNOWN, 12/06/16) Physical Exam Vital Signs Date Time Temp Pulse Resp B/P Pulse Ox O2 Delivery O2 Flow Rate FiO2 12/09/16 14:46 57/37 95 Nasal Cannula 4.0 12/09/16 14:30 88/54 12/09/16 14:29 87 26 95 12/09/16 14:15 77/45 12/09/16 14:00 78/43 12/09/16 13:59 85 21 96 12/09/16 13:54 86 22 100 Nasal Cannula 4.0 12/09/16 13:45 73/52 12/09/16 13:39 84 24 95 Nebulizer 12/09/16 13:30 79/54 12/09/16 13:24 84 20 93 Nebulizer 12/09/16 13:15 78/49 12/09/16 13:09 77 19 94 Nebulizer 12/09/16 13:06 80 18 74/49 97 Nebulizer 12/09/16 13:04 79 25 74/49 91 Nebulizer 12/09/16 12:54 78 24 100 Nasal Cannula 4.0 12/09/16 12:49 80 26 71 12/09/16 12:34 78 12/09/16 12:34 99 27 87 12/09/16 12:32 93 Nasal Cannula 3.0 12/09/16 12:32 36.7 80 12 62/39 91 Nasal Cannula 3.0 12/09/16 12:32 91 Nasal Cannula 3.0 12/09/16 12:23 62/39 Physical Exam General: Chronically ill appearing, cachectic, in no acute distress, mildly tachypneic. HEENT: Normal cephalic atraumatic. Pupils are equal round and reactive to light. Extraocular movements are intact. Oropharynx is pink with mildly dry mucous membranes. No swelling of the mouth lips or tongue. Neck: Supple with a midline trachea. No meningeal signs or stiffness, no JVD or bruits. No Stridor. Chest: Rhonchorous breath sounds. Heart: regular rate and rhythm. Abdomen: Soft nontender, nondistended without rebound guarding or rigidity. Extremities: No cyanosis clubbing or edema. No calf tenderness. Left AKA with healing avelino. Spine/Back. Non tender to palpation. No CVA tenderness Buttocks: There is a decubitus covered by Duoderm. Skin: Good turgor without rashes. Neurologic exam: Cranial nerves two through 12 are intact. Motor and sensation are intact and symmetrical throughout. Medical Decision & Procedures ER Provider Diagnostic Interpretation: X-ray results as stated below per interpretation by me and the radiologist: CHEST ONE VIEW PORTABLE CLINICAL HISTORY: Atypical chest pain. Hypoxia. COMPARISON STUDY: 12/06/2016 FINDINGS: There is pulmonary emphysema. There is an azygos lobe. A left subclavian catheter fragment remains unchanged. There are persistent left lower lobe airspace opacities. There are developing right lower lobe airspace opacities. A subpulmonic left pleural effusion is suspected. An element of pulmonary vascular congestion/fluid overload must be considered.[ IMPRESSION: 1. Persistent left lower lobe airspace opacities with a suspected subpulmonic left pleural effusion 2. Developing right lower lobe airspace opacities 3. An element of congestive failure/fluid overload must be considered. Electronically signed by: Aramis Lassiter M.D. 12/09/2016 12:59 PM Dictated Date/Time: 12/09/2016 12:57 PM Laboratory Results 12/09/16 12:30 Red Blood Count 3.85, Mean Corpuscular Volume 91.7, Mean Corpuscular Hemoglobin 28.6, Mean Corpuscular Hemoglobin Concent 31.2, Mean Platelet Volume 10.1, Neutrophils (%) (Auto) 89.4, Lymphocytes (%) (Auto) 5.5, Monocytes (%) (Auto) 4.0, Eosinophils (%) (Auto) 0.0, Basophils (%) (Auto) 0.1, Neutrophils # (Auto) 12.67, Lymphocytes # (Auto) 0.78, Monocytes # (Auto) 0.56, Eosinophils # (Auto) 0.00, Basophils # (Auto) 0.02 12/09/16 12:30 Test 12/09/16 00:00 12/09/16 12:30 12/09/16 12:47 12/09/16 12:59 White Blood Count 14.17 K/uL (4.8-10.8) Red Blood Count 3.85 M/uL (4.7-6.1) Hemoglobin 11.0 g/dL (14.0-18.0) Hematocrit 35.3 % (42-52) Mean Corpuscular Volume 91.7 fL (80-100) Mean Corpuscular Hemoglobin 28.6 pg (25-34) Mean Corpuscular Hemoglobin Concent 31.2 g/dl (32-36) Platelet Count 402 K/uL (130-400) Mean Platelet Volume 10.1 fL (7.4-10.4) Neutrophils (%) (Auto) 89.4 % Lymphocytes (%) (Auto) 5.5 % Monocytes (%) (Auto) 4.0 % Eosinophils (%) (Auto) 0.0 % Basophils (%) (Auto) 0.1 % Neutrophils # (Auto) 12.67 K/uL (1.4-6.5) Lymphocytes # (Auto) 0.78 K/uL (1.2-3.4) Monocytes # (Auto) 0.56 K/uL (0.11-0.59) Eosinophils # (Auto) 0.00 K/uL (0-0.5) Basophils # (Auto) 0.02 K/uL (0-0.2) RDW Standard Deviation 58.5 fL (36.4-46.3) RDW Coefficient of Variation 18.2 % (11.5-14.5) Immature Granulocyte % (Auto) 1.0 % Immature Granulocyte # (Auto) 0.14 K/uL (0.00-0.02) Nucleated RBC Absolute Count (auto) 0.10 K/uL (0-0) Nucleated Red Blood Cells % 0.7 % Polychromasia 1+ Prothrombin Time 15.1 SECONDS (9.0-12.0) Prothromb Time International Ratio 1.4 (0.9-1.1) Activated Partial Thromboplast Time 41.9 SECONDS (21.0-31.0) Partial Thromboplastin Ratio 1.6 Anion Gap 10.0 mmol/L (3-11) Est Creatinine Clear Calc Drug Dose 31.0 ml/min Estimated GFR () 54.3 Estimated GFR (Non- 46.8 BUN/Creatinine Ratio 33.6 (10-20) Calcium Level 7.5 mg/dl (8.5-10.1) Total Bilirubin 0.4 mg/dl (0.2-1) Direct Bilirubin 0.2 mg/dl (0-0.2) Aspartate Amino Transf (AST/SGOT) 390 U/L (15-37) Alanine Aminotransferase (ALT/SGPT) 384 U/L (12-78) Alkaline Phosphatase 354 U/L (45-117) Total Creatine Kinase 257 U/L (39-308) Creatine Kinase MB 4.1 ng/ml (0.5-3.6) Creatine Kinase MB Ratio 1.6 (0-3.0) Troponin I 1.400 ng/ml (0-0.045) Total Protein 5.3 gm/dl (6.4-8.2) Albumin 1.8 gm/dl (3.4-5.0) Lipase 59 U/L (73-393) Bedside Troponin I 1.430 ng/ml (0-0.045) BY-[id number] Natriuretic Peptide > 26024 pg/ml (0-900) Bedside Lactic Acid Venous 2.44 mmol/L (0.90-1.70) Laboratory studies as stated above per my review. Medications Administered Medications (Trade) Dose Ordered Sig/Malcolm Route Start Time Stop Time Status Last Admin Dose Admin Sodium Chloride (Nss 1000ml) 1,000 ml @ 999 mls/hr Q1H1M STAT IV 12/09/16 12:28 12/09/16 13:28 DC 12/09/16 12:28 999 MLS/HR Albuterol/ Ipratropium (Duoneb) 12 ml ONE ONCE INH 12/09/16 12:30 12/09/16 12:31 DC 12/09/16 12:54 12 ML Piperacillin Sod/ Tazobactam Sod (Zosyn Iv) 4.5 gm NOW STAT IV 12/09/16 12:41 12/09/16 12:43 DC 12/09/16 13:01 4.5 GM Methylprednisolone Sodium Succinate (Solu-Medrol IV) 125 mg NOW STAT IV 12/09/16 12:41 12/09/16 12:43 DC 12/09/16 13:00 125 MG Levofloxacin (Levaquin / D5W) 750 mg NOW STAT IV 12/09/16 13:05 12/09/16 13:06 DC 12/09/16 13:20 750 MG ECG Indication: SOB/dyspnea Rate (beats per minute): About 100 Rhythm: other (Regular rhythm, difficult to interpret due to motion artifact) Findings: other (Significant motion artifact, no definite ST elevation) Comparison ECG Date: Difficult to compare to old secondary to motion artifact ED Course 1222: Past medical records reviewed. The patient was evaluated in room C10, and a complete history and physical examination were performed. 1228: Ordered Sodium Chloride 1000 ml @ 999 mls/hr IV 1230: Ordered DuoNeb 12 ml INH 1240: The patient appears comfortable on oxygen. His oxygen saturation is in the 70s. He will be getting a nebulizer treatment. An IV was established in his right arm. 1241: Ordered Solu-Medrol IV 125 mg IV, Zosyn Iv 4.5 gm IV 1302: He is feeling better while receiving the nebulizer treatment. His oxygen saturation with the neb is in the high 90s. 1305: Ordered Levofloxacin 750 mg IV 1310: He appears comfortable at this time. His blood pressure is in the 70s. He is getting fluid now. 1323: Upon reevaluation, the patient is resting. His systolic blood pressure is up to 78. I discussed the results and treatment plan with the patient. He verbalized agreement of the treatment plan. The patient will be evaluated for further management. 1420: I spoke with Dr. Delicia ANSARI, and he will be admitting the patient into the ICU. Medical Decision Differentials include sepsis, COPD exacerbation, pneumonia, congestive heart failure, and electrolyte or metabolic abnormality. This patient comes in as described above. He has a very complex medical history he was found be hypoxemic and hypotensive. His lung sounds rhonchorous on exam. He only appears to be mildly tachypneic however he was placed on supplemental oxygen and given albuterol Atrovent nebs her 1 hour this raises oxygen into the high 90s he seemed much more comfortable with this and was in no distress. His blood pressure is coming up with IV hydration. He was initially in the 60s is now in the high 70s he does only weigh 40 kg. His chest x-ray shows infiltrate and possibly some developing CHF. He was ordered initially 1 L IV fluid bolus he got this relatively slowly as antibiotics 1 and first and I told the nurse to see how he is doing after 500 mL given the concern for coexisting CHF. He has an elevated white count. His lactic acid is mildly elevated in the 2 range. His BUN and creatinine are mildly elevated compared to baseline and I do think clinically looks dry. He was given additionally IV Levaquin as well as IV Zosyn for broad-spectrum coverage. I think he does have COPD exacerbation dehydration and sepsis and pneumonia. His LFTs are mildly elevated as well. I did consult Dr. Robbins for admission. I also consulted Dr. Fernandez as the patient will be going to the intensive care unit. They have seen the patient in the ER as well. They ordered CAT scan of the chest, abdomen, pelvis. He does have a necrotic lesion. We did placed the patient in respiratory isolation after this. He will be admitted for further treatment and evaluation. Consults Time Called: 1319 Consulting Physician: Dr. Itzel LI Returned Call: 1323 They will be evaluating the patient for further management. Additional Consults: Time Called: 1420 Consulted Physician: Dr. Delicia LI Returned Call: 1420 Additional Comments: He will be admitting the patient to the ICU. Impression Primary Impression: Sepsis Additional Impressions: PNA (pneumonia) COPD (chronic obstructive pulmonary disease) Hypoxia Critical Care I have personally spent greater than 30 minutes of critical care time in the direct management of this patient. This includes bedside care, interpretation of diagnostic studies, and testing, discussion with consultants, patient, and family members, and other required patient management activities. This 30 minutes is in excess of all separately billable procedures. Scribe Attestation The scribe's documentation has been prepared under my direction and personally reviewed by me in its entirety. I confirm that the note above accurately reflects all work, treatment, procedures, and medical decision making performed by me. Departure Information Dispostion Being Evaluated By Hospitalist Referrals Frances DOHERTY (PCP) Problem Qualifiers
[2016-12-09] MEDS ORDERED: PIPERACILLIN/TAZOBACTAM 4.5 GM/100ML D5W IV STA (12:41)
[2016-12-09] MEDS ORDERED: METHYLPREDNISOLONE 125 MG VIAL IV STA (12:41)
[2016-12-09] MEDS ORDERED: FERR324T12 PO (12:44)
[2016-12-09] MEDS ORDERED: HYDR2.5L TOP (12:44)
[2016-12-09] MEDS ORDERED: SULF800T23 PO (12:44)
[2016-12-09] MEDS ORDERED: [UNRECOGNIZED DRUG - CODE] TD (12:44)
[2016-12-09] MEDS ORDERED: ZINC1CRE3 TOP (12:44)
--- NOTE | 2016-12-09 13:00 | DIAGNOSTIC IMAGING REPORT ---
CHEST ONE VIEW PORTABLE CLINICAL HISTORY: Atypical chest pain. Hypoxia. COMPARISON STUDY: 12/06/2016 FINDINGS: There is pulmonary emphysema. There is an azygos lobe. A left subclavian catheter fragment remains unchanged. There are persistent left lower lobe airspace opacities. There are developing right lower lobe airspace opacities. A subpulmonic left pleural effusion is suspected. An element of pulmonary vascular congestion/fluid overload must be considered.[ IMPRESSION: 1. Persistent left lower lobe airspace opacities with a suspected subpulmonic left pleural effusion 2. Developing right lower lobe airspace opacities 3. An element of congestive failure/fluid overload must be considered. Electronically signed by: Aramis Lassiter M.D. 12/09/2016 12:59 PM Dictated Date/Time: 12/09/2016 12:57 PM
[2016-12-09 13:01] LABS: HEMATOCRIT 35.3 % (42-52); MEAN CELL VOLUME 91.7 fL (80-100); MEAN CORPUSCULAR HEMOGLOBIN 28.6 pg (25-34); MEAN CORPUSCULAR HGB CONC 31.2 g/dl (32-36); MEAN PLATELET VOLUME 10.1 fL (7.4-10.4); PLATELET COUNT 402 K/uL (130-400); RED BLOOD COUNT 3.85 M/uL (4.7-6.1); WHITE BLOOD COUNT 14.17 K/uL (4.8-10.8)
[2016-12-09] MEDS ORDERED: LEVAQUIN 750MG / 150ML D5W IV STA (13:05)
[2016-12-09 13:09] LABS: INR 1.4 (0.9-1.1); PARTIAL THROMBOPLASTIN RATIO 1.6; PROTHROMBIN TIME (PATIENT) 15.1 SECONDS (9.0-12.0)
[2016-12-09 13:15] LABS: BUN/CREATININE RATIO 33.6 (10-20); CALCIUM 7.5 mg/dl (8.5-10.1); CREATININE 1.5 mg/dl (0.60-1.40); POTASSIUM 3.5 mmol/L (3.5-5.1)
[2016-12-09 13:20] LABS: CKMB/CK RATIO 1.6 (0-3.0)
[2016-12-09 14:11] LABS: BASO % 0.1 %; BASO ABS # 0.02 K/uL (0-0.2); COMPLETE YES; LYMPH % 5.5 %; LYMPH ABS # 0.78 K/uL (1.2-3.4); NEUT % 89.4 %; POLYCHROMASIA 1+
[2016-12-09 14:43] LABS: POINT OF CARE PRO-BNP > 20000 pg/ml (0-900)
[2016-12-09] MEDS ORDERED: ALUMINUM/MAGNESIUM/SIMETH (MAALOX MAX) 30 ML UDC PO PRN (14:45)
[2016-12-09] MEDS ORDERED: LORAZEPAM 1 MG TAB PO PRN (14:45)
[2016-12-09] MEDS ORDERED: MAGNESIUM HYDROXIDE SUSP 30 ML UDC PO PRN (14:45)
[2016-12-09] MEDS ORDERED: ONDANSETRON 8 MG TAB PO PRN (14:45)
[2016-12-09] MEDS ORDERED: ALBUTEROL HFA 8 GM INHALER INH PRN (14:45)
[2016-12-09] MEDS ORDERED: NITROGLYCERIN 0.4 MG SL PER TAB CHARGE SL PRN (14:45)
[2016-12-09] MEDS ORDERED: ONDANSETRON INJ 2 MG/ML 2 ML VIAL IV PRN (14:45)
[2016-12-09] MEDS ORDERED: [UNRECOGNIZED DRUG - OTHER] TD SCH (14:45)
--- NOTE | 2016-12-09 15:22 | DIAGNOSTIC IMAGING REPORT ---
ABDOMEN AND PELVIS CT WITHOUT CONTRAST CT DOSE: 956.39 mGy.cm HISTORY: transaminitis TECHNIQUE: Multiaxial CT images of the abdomen and pelvis were performed without contrast. COMPARISON STUDY: Abdomen and pelvis with lower extremity CTA 10/20/2016. FINDINGS: There is a left pleural effusion with heterogeneous appearance to the left lower lobe. Patchy airspace opacity seen within the right middle lobe and right lower lobe with partial opacification of the right lower lobe bronchi. No pneumoperitoneum. No pneumatosis. Tiny foci of gas within the anterior abdominal wall may be due to prior medication injection. Interval left [id number] amputation. No destructive process within the residual distal left femur to suggest osteomyelitis. Small lucencies throughout the visualized osseous structures may be due to osteopenia. No acute fractures within the visualized osseous structures. The gallbladder is distended. The unenhanced liver, spleen, pancreas, and adrenal glands are unremarkable. Bilateral nephrolithiasis. No hydronephrosis. There is an IVC filter. No retroperitoneal lymphadenopathy. The bladder is mildly distended. Mildly distended gas and fluid-filled loops of large and small bowel. This favors an ileus. No abnormal fluid collections or hematoma within the visualized lower extremities. Mild thickening of the descending colon, sigmoid colon, and rectum. There is also submucosal fat deposition suggesting an acute on chronic mild colitis. IMPRESSION: 1. Left pleural effusion with left lower lobe consolidation. There is also patchy consolidation within the right lung base. This likely represents a pneumonia. 2. Multiple mildly distended gas and fluid-filled loops of large and small bowel. This likely represents an ileus. 3. Mild thickening of the descending colon, sigmoid colon, and rectum with associated submucosal fat deposition. Therefore, this favors a mild acute on chronic nonspecific colitis. 4. Bilateral nephrolithiasis. No hydronephrosis. 5. Distended gallbladder. 6. Interval left [id number] amputation. Electronically signed by: Reji Curry M.D. 12/09/2016 3:20 PM Dictated Date/Time: 12/09/2016 3:09 PM
--- NOTE | 2016-12-09 15:22 | DIAGNOSTIC IMAGING REPORT ---
CT OF THE CHEST WITHOUT IV CONTRAST CLINICAL HISTORY: Pneumonia. Hypoxia. COMPARISON STUDY: Chest CT October 18, 2016 and chest radiograph performed earlier today. TECHNIQUE: Axial images of the chest were obtained without IV contrast. Images were reviewed in the axial, sagittal, and coronal planes. IV contrast was not administered for this examination. FINDINGS: A portion of a left subclavian catheter is again noted. This is unchanged. The heart is mildly enlarged. There is no pericardial effusion. Evaluation of the chest is suboptimal given the lack of IV contrast. A moderately enlarged subcarinal lymph node measures 2 cm in short axis diameter. This is similar to CT of October 18, 2016. There is also suspected bilateral hilar lymphadenopathy which is difficult to assess on this unenhanced exam. Severe emphysema is noted. There is a moderate-sized left pleural effusion. This extensive left lower lobe airspace opacity. Within this airspace opacity, there is an apparent 3.6 x 3 cm area of fluid attenuation with a possible wall. There are also scattered airspace opacities throughout the remainder of the lungs. There is no pneumothorax. There is no cavitation. Bony thorax is unremarkable. Lungs are suboptimally assessed due to respiratory motion. The abdomen and pelvis will be reported separately. IMPRESSION: 1. Moderate left pleural effusion with extensive left lower lobe airspace opacity which favors pneumonia. Apparent 3.6 x 3 cm focus of fluid within the central aspect of this consolidated lung raises the possibility of a necrotizing pneumonia/abscess. 2. Multifocal airspace opacities throughout the remainder of the lungs suggestive of pneumonia. 3. Severe emphysema. 4. Nonspecific moderate mediastinal and bilateral hilar lymphadenopathy which is similar to CT of October 18, 2016. A follow-up chest CT in 3 months is recommended. Electronically signed by: Everton Merida M.D. 12/09/2016 3:20 PM Dictated Date/Time: 12/09/2016 3:08 PM
[2016-12-09] MEDS ORDERED: NSS+KCL 20 MEQ 1000ML ONE (15:23)
--- NOTE | 2016-12-09 15:28 | History and Physical ---
History & Physical Date & Time of Service: December 09, 2016 at 14:53 Chief Complaint: Low Spo2 Primary Care Physician: Frances DOHERTY History of Present Illness Source: patient, clinic records, hospital records, other (correction guards ) 71 y/o male, with PMHx of a.fib, COPD, hypothyroidism, PAD s/p left AKA, h/o PE s/p IVC filter on 10/20, and GERD, who presented to the ED because of worsening SOB x4 days. He is from [facility]. Patient was seen in the ED on 12/06 due to worsening SOB. It was suspected patient had acute on chronic COPD exacerbation and was discharged back to the correction for continued management. Patient returned to the ED today because SOB continues to worsen. Patient denies cough or sputum production. He requires 3L O2 at all times. According to the correction guards, patient has started to make gurgling sounds today. Patient denies any other complaints at this time. Additionally, patient admits to worsening decubitus ulcer. Patient states he has had this ulcer for "a long time," but it has recently become for painful. Dressed in clean dressing in ED. Patient denies any fever, chills, sweats, lightheadedness, dizziness, vision changes, CP , palpitations, edema, wheezing, cough, abdominal pain, nausea, vomiting, diarrhea, urinary symptoms, melena, numbness/tingling, weakness, muscle/joint pain, anxiety/depression, active bleeding. Past Medical/Surgical History Medical Problems: a.fib COPD hypothyroidism PAD s/p left AKA h/o PE s/p IVC filter on 10/20 GERD Family History No pertinent family history Social History Smoking Status: Unknown if Ever Smoked Drug Use: none Marital Status: single Housing status: other Occupational Status: other Immunizations History of Influenza Vaccine: Yes History of Tetanus Vaccine?: Yes History of Pneumococcal: Yes History of Hepatitis B Vaccine: Yes Multi-Drug Resistant Organisms History of MDRO: No Allergies Coded Allergies: Aspirin (Verified Allergy, Unknown, 12/06/16) Procaine (Verified Allergy, Unknown, 12/06/16) Rosuvastatin (Verified Allergy, Unknown, UNKNOWN, 12/06/16) Home Medications Scheduled Aclidinium [place] (Tudorza Pressair), 1 PUFF INH BID Amiodarone Hcl (Cordarone), 200 MG PO BID Ciclesonide (Alvesco), 1 PUFF PO BID Control Gel Formula Dressing (Duoderm Cgf), 1 PATCH TD [id number] Diphenhydramine Hcl (Benadryl), 50 MG PO QPM Emollient (Lubriskin), 1 APPLN TOP BID Enoxaparin (Lovenox), 60 MG SQ Q12H Ferrous Fumarate (Hemocyte), 324 MG PO BID Guaifenesin (Guaifenesin), 800 MG PO TID Levothyroxine Sodium (Synthroid), 225 MCG PO DAILY Loperamide Hcl (Imodium), 2 MG PO BID Metoclopramide Hcl (Reglan), 5 MG PO AC Metoprolol Tartrate (Lopressor), 12.5 MG PO BID Nortriptyline (Pamelor), 10 MG PO HS Nutritional Supplements (Nutritional Drink), 1 CAN PO TIDM Omeprazole (Omeprazole), 40 MG PO DAILY Sulfamethoxazole-Trimethoprim (Bactrim Ds 800MG/160MG), 1 TAB PO BID Zinc Oxide (Topical) (Desitin Rapid Relief), 1 APPLN TOP DIRECTED Scheduled PRN Acetaminophen (Tylenol), 325 MG PO TID PRN for Pain Acetaminophen/Codeine (Tylenol W/Codeine #3), 1 TAB PO Q4H WHILE AWAKE PRN for Pain Albuterol Hfa (Ventolin Hfa), 2 PUFFS INH QID PRN for SOB/Wheezing Docusate Sodium (Gnp Stool Softener), 250 MG PO DAILY PRN for Constipation Hydrocortisone (Topical) (Hydrocortisone), 1 APPLN TOP TID PRN for RASH Ondansetron Hcl (Zofran), 8 MG PO TID PRN for Nausea Physical Exam Vital Signs Date Time Temp Pulse Resp B/P Pulse Ox O2 Delivery O2 Flow Rate FiO2 12/09/16 13:54 86 22 100 Nasal Cannula 4.0 12/09/16 13:45 73/52 12/09/16 13:39 84 24 95 Nebulizer 12/09/16 13:30 79/54 12/09/16 13:24 84 20 93 Nebulizer 12/09/16 13:15 78/49 12/09/16 13:09 77 19 94 Nebulizer 12/09/16 13:06 80 18 74/49 97 Nebulizer 12/09/16 13:04 79 25 74/49 91 Nebulizer 12/09/16 12:54 78 24 100 Nasal Cannula 4.0 12/09/16 12:49 80 26 71 12/09/16 12:34 78 12/09/16 12:34 99 27 87 12/09/16 12:32 93 Nasal Cannula 3.0 12/09/16 12:32 36.7 80 12 62/39 91 Nasal Cannula 3.0 12/09/16 12:32 91 Nasal Cannula 3.0 12/09/16 12:23 62/39 General Appearance: + mild distress, + thin Head: normocephalic, atraumatic Eyes: normal inspection, PERRL ENT: hearing grossly normal Neck: supple Respiratory/Chest: no respiratory distress, no accessory muscle use, + decreased breath sounds (throughout all lung [place], >at lung bases ), + rhonchi (throughtout all lung [place] ), + wheezing (expiratory wheeze throughout all lung [place] ) Cardiovascular: + irregularly irregular (rate controlled ) Abdomen/GI: normal bowel sounds, non tender, soft Extremities/Musculoskelatal: no calf tenderness, no pedal edema, + pertinent finding (left AKA; wound with avelino in place, no obvious erythema or drainage ) Neurologic/Psych: alert, normal mood/affect, oriented x 3 Skin: normal color, warm/dry, + pertinent finding (lesions noted to upper chest region and bilateral upper extremities ) Diagnostics Laboratory Results Results Past 24 Hours Test 12/09/16 12:30 12/09/16 12:47 12/09/16 12:59 12/09/16 14:34 Range/Units White Blood Count 14.17 4.8-10.8 K/uL Red Blood Count 3.85 4.7-6.1 M/uL Hemoglobin 11.0 14.0-18.0 g/dL Hematocrit 35.3 42-52 % Mean Corpuscular Volume 91.7 80-100 fL Mean Corpuscular Hemoglobin 28.6 25-34 pg Mean Corpuscular Hemoglobin Concent 31.2 32-36 g/dl Platelet Count 402 130-400 K/uL Mean Platelet Volume 10.1 7.4-10.4 fL Neutrophils (%) (Auto) 89.4 % Lymphocytes (%) (Auto) 5.5 % Monocytes (%) (Auto) 4.0 % Eosinophils (%) (Auto) 0.0 % Basophils (%) (Auto) 0.1 % Neutrophils # (Auto) 12.67 1.4-6.5 K/uL Lymphocytes # (Auto) 0.78 1.2-3.4 K/uL Monocytes # (Auto) 0.56 0.11-0.59 K/uL Eosinophils # (Auto) 0.00 0-0.5 K/uL Basophils # (Auto) 0.02 0-0.2 K/uL RDW Standard Deviation 58.5 36.4-46.3 fL RDW Coefficient of Variation 18.2 11.5-14.5 % Immature Granulocyte % (Auto) 1.0 % Immature Granulocyte # (Auto) 0.14 0.00-0.02 K/uL Nucleated RBC Absolute Count (auto) 0.10 0-0 K/uL Nucleated Red Blood Cells % 0.7 % Polychromasia 1+ Prothrombin Time 15.1 9.0-12.0 SECONDS Prothromb Time International Ratio 1.4 0.9-1.1 Activated Partial Thromboplast Time 41.9 21.0-31.0 SECONDS Partial Thromboplastin Ratio 1.6 Sodium Level 137 136-145 mmol/L Potassium Level 3.5 3.5-5.1 mmol/L Chloride Level 100 98-107 mmol/L Carbon Dioxide Level 27 21-32 mmol/L Anion Gap 10.0 3-11 mmol/L Blood Urea Nitrogen 50 7-18 mg/dl Creatinine 1.50 0.60-1.40 mg/dl Est Creatinine Clear Calc Drug Dose 31.0 ml/min Estimated GFR () 54.3 Estimated GFR (Non- 46.8 BUN/Creatinine Ratio 33.6 10-20 Random Glucose 68 70-99 mg/dl Calcium Level 7.5 8.5-10.1 mg/dl Total Bilirubin 0.4 0.2-1 mg/dl Direct Bilirubin 0.2 0-0.2 mg/dl Aspartate Amino Transf (AST/SGOT) 390 15-37 U/L Alanine Aminotransferase (ALT/SGPT) 384 12-78 U/L Alkaline Phosphatase 354 45-117 U/L Total Creatine Kinase 257 39-308 U/L Creatine Kinase MB 4.1 0.5-3.6 ng/ml Creatine Kinase MB Ratio 1.6 0-3.0 Total Protein 5.3 6.4-8.2 gm/dl Albumin 1.8 3.4-5.0 gm/dl Lipase 59 73-393 U/L Bedside Troponin I 1.430 0-0.045 ng/ml UA-Nyi-S-Type Natriuretic Peptide > 71752 0-900 pg/ml Bedside Lactic Acid Venous 2.44 0.90-1.70 mmol/L Microbiology Results 12/09/16 Blood Culture, Received Pending 12/09/16 Blood Culture, Received Pending Diagnostic Radiology CHEST ONE VIEW PORTABLE CLINICAL HISTORY: Atypical chest pain. Hypoxia. COMPARISON STUDY: 12/06/2016 FINDINGS: There is pulmonary emphysema. There is an azygos lobe. A left subclavian catheter fragment remains unchanged. There are persistent left lower lobe airspace opacities. There are developing right lower lobe airspace opacities. A subpulmonic left pleural effusion is suspected. An element of pulmonary vascular congestion/fluid overload must be considered.[ IMPRESSION: 1. Persistent left lower lobe airspace opacities with a suspected subpulmonic left pleural effusion 2. Developing right lower lobe airspace opacities 3. An element of congestive failure/fluid overload must be considered. Electronically signed by: Aramis Lassiter M.D. 12/09/2016 12:59 PM Dictated Date/Time: 12/09/2016 12:57 PM The status of this report is Signed. Draft = Not yet reviewed or approved by Radiologist. Signed = Reviewed and approved by Radiologist. EKG CHANCE MITA ID:[id number] 09-DEC-2016 13:16:43 [facility] Poor data quality, interpretation may be adversely affected Undetermined rhythm Right bundle branch block Anteroseptal infarct , age undetermined T wave abnormality, consider inferolateral ischemia Abnormal ECG When compared with ECG of 06-DEC-2016 03:40, Current undetermined rhythm precludes rhythm comparison, needs review Right bundle branch block is now Present Anteroseptal infarct is now Present 25mm/s 10mm/mV 150Hz 8.0 SP2 12SL 241 HAYLEY: 9 Referred by: [facility] Unconfirmed Vent. rate 146 BPM [place] interval 94 ms QRS duration 154 ms QT/QTc 340/529 ms P-R-T axes 50 175 115 1945 (71 yr) Male 0lb [place] [place]15 Network Associate:YANNI HOLLOWAY Test ind: Impression Assessment and Plan 71 y/o male, with PMHx of a.fib, COPD, hypothyroidism, PAD s/p left AKA, h/o PE s/p IVC filter on 10/20, and GERD, who presented to the ED because of worsening SOB x4 days. Sepsis (RR> 20, SBP <100, WBC >12), likely secondary to pneumonia: - Admit to ICU - Trend cardiac enzymes- initial trop 1.430 - Received IV NSS bolus x1 in ED- continue IV NSS + 20 mEq KCL @ 100 ml/hr - Received IV Levaquin + Zosyn x1 dose in ED- continue IV Zosyn + Vancomycin - Elevated lactic acid of 2.44- repeat ordered - Follow CBC and PRP - Check mag and phosphorus - CT of abdomen/pelvis and chest per marine steward pending Acute on chronic COPD exacerbation, likely secondary to above: - 125 mg IV Solu Medrol given in ED x1 - O2 protocol, wean as tolerated- wears 2-3L O2 at all times - DuoNebs QID and q2hrs PRN - Continue home inhalers Decubitus ulcer: Consult wound care EDDIE: - Treat w/ IVF - Follow PRP Elevated LFTs, likely secondary to hypotension: - Treat w/ IVF - Trend LFTs ?Fluid overload on CXR and BNP >33645: - Continue to treat w/ IVF due to sepsis - Repeat CXR tomorrow AM - ECHO 10/23/16- 1. Normal left ventricular size with hyperdynamic systolic function. Estimated EF 65-70%. No regional wall motion abnormalities. Septal flattening during diastole suggests right ventricular volume overload. No left ventricular hypertrophy. 2. Severely dilated right ventricle with reduced systolic function (not well visualized but probably at least moderately reduced). 3. Calcified mass (approximately 1.3 x 0.85) noted on the anterior mitral leaflet. 4. Sclerotic aortic valve without significant stenosis. A.fib: - Continue Amiodarone 200 mg BID - Metoprolol 12.5 mg BID held secondary to hypotension Hypothyroidism: - Continue Synthroid 225 mcg daily - TSH 09/04/16- 3.210 PAD s/p left AKA by Dr. Fry on 11/27/16: - Consult Dr. Fry for f/u and ?staple removal h/o PE s/p IVC filter on 10/20: Lovenox BID Anemia- STABLE: Continue Hemocyte GERD: Protonix daily- resume Omeprazole at discharge DVT prophylaxis: Lovenox Code Status: LEVEL I, FULL Dispo: From [facility], [facility] Level of Care Critical Care Resuscitation Status FULL RESUSCITATION VTE Prophylaxis VTE Risk Assessment Done? Y/N: Yes Risk Level: High Given or contraindicated: Enoxaparin (Lovenox)SQ, T.E.D. Stockings, SCD's
--- NOTE | 2016-12-09 16:31 | Critical Care Consultation ---
Critical Care Consultation Date of Consultation: December 09, 2016. Attending Physician: Dr. Uzair Nesbitt Reason for Consultation: Sepsis secondary to necrotic pneumonia Hypotension History of Present Illness This is a 71 year male with a signicant past medical history which includes afib , peripheral arterial disease with a hx of left AKA, Hx of PE with IVC filter placement, COPD, hypothyroidism. He is significantly dyspneic in the ICU so obtaining direct history is difficult at this time. HPI is obtained predominantly from review of the EMR. The patient arrived to the ED from [facility] noting worsening shortness of breath. He was seen on 12/06 in the ED and treated with COPD exacerbation and discharged back to the correction. He notes that he has had significant worsening of shortness of breath as well as cough. In addition, it is noted that he had worsening pain at the site of his chronic left-buttock decubitus ulcer. In the ED, he was found to be hypotensive and CT scan of the lung was remarkable for a necrotic left-sided PNA and pleural effusion. He was treated empirically with Zosyn, Levofloxacin and Vancomycin and had fluid resuscitation for a total of 2 L of crystalloid. At this time he denies pain but continues to complain of worsening shortness of breath. Past Medical/Surgical History Atrial Fibrillation PAD S/p left AKA Hx of PE with IVC filter in place Hypothyroidism Family History No pertinent family history Social History Smoking Status: Former Smoker Smokeless Tobacco Use: No Alcohol Use: none Drug Use: none Marital Status: single Housing Status: other ([facility]) Occupation Status: other Allergies Coded Allergies: Aspirin (Verified Allergy, Unknown, 12/06/16) Procaine (Verified Allergy, Unknown, 12/06/16) Rosuvastatin (Verified Allergy, Unknown, UNKNOWN, 12/06/16) Home Medications Scheduled Aclidinium [place] (Tudorza Pressair), 1 PUFF INH BID Amiodarone Hcl (Cordarone), 200 MG PO BID Ciclesonide (Alvesco), 1 PUFF PO BID Control Gel Formula Dressing (Duoderm Cgf), 1 PATCH TD CQ72HR Diphenhydramine Hcl (Benadryl), 50 MG PO QPM Emollient (Lubriskin), 1 APPLN TOP BID Enoxaparin (Lovenox), 60 MG SQ Q12H Ferrous Fumarate (Hemocyte), 324 MG PO BID Guaifenesin (Guaifenesin), 800 MG PO TID Levothyroxine Sodium (Synthroid), 225 MCG PO DAILY Loperamide Hcl (Imodium), 2 MG PO BID Metoclopramide Hcl (Reglan), 5 MG PO AC Metoprolol Tartrate (Lopressor), 12.5 MG PO BID Nortriptyline (Pamelor), 10 MG PO HS Nutritional Supplements (Nutritional Drink), 1 CAN PO TIDM Omeprazole (Omeprazole), 40 MG PO DAILY Sulfamethoxazole-Trimethoprim (Bactrim Ds 800MG/160MG), 1 TAB PO BID Zinc Oxide (Topical) (Desitin Rapid Relief), 1 APPLN TOP DIRECTED Scheduled PRN Acetaminophen (Tylenol), 325 MG PO TID PRN for Pain Acetaminophen/Codeine (Tylenol W/Codeine #3), 1 TAB PO Q4H WHILE AWAKE PRN for Pain Albuterol Hfa (Ventolin Hfa), 2 PUFFS INH QID PRN for SOB/Wheezing Docusate Sodium (Gnp Stool Softener), 250 MG PO DAILY PRN for Constipation Hydrocortisone (Topical) (Hydrocortisone), 1 APPLN TOP TID PRN for RASH Ondansetron Hcl (Zofran), 8 MG PO TID PRN for Nausea Current Inpatient Medications Current Inpatient Medications Medications (Trade) Dose Ordered Sig/Malcolm Route Start Time Stop Time Status Last Admin Dose Admin Potassium Chloride/Sodium Chloride (Nss + 20meq KCl 1000ml) 1,000 ml @ 100 mls/hr Q10H IV 12/09/16 14:34 01/08/17 14:33 UNV Lorazepam (Ativan Tab) 1 mg Q6H PRN PO 12/09/16 14:45 01/08/17 14:44 Nitroglycerin (Nitrostat Tab) 0.4 mg UD PRN SL 12/09/16 14:45 01/08/17 14:44 Al Hydrox/Mg Hydrox/Simethicone (Maalox Max Susp) 15 ml Q4H PRN PO 12/09/16 14:45 01/08/17 14:44 Magnesium Hydroxide (Milk Of Magnesia Susp) 30 ml Q12H PRN PO 12/09/16 14:45 01/08/17 14:44 Ondansetron HCl (Zofran Inj) 4 mg Q6H PRN IV 12/09/16 14:45 01/08/17 14:44 Pantoprazole Sodium (Protonix Tab) 40 mg DAILY PO 12/10/16 09:00 01/09/17 08:59 Albuterol/ Ipratropium 3 ml 3 ml QIDR INH 12/09/16 16:00 01/08/17 15:59 Piperacillin Sod/ Tazobactam Sod 3.375 gm/Dextrose 115 ml @ 28.75 mls/ hr Q12 IV 12/09/16 21:00 12/16/16 20:59 UNV Vancomycin HCl/ Sodium Chloride (Vancomycin Inj/ Nss 250ml) 270 ml @ 125 mls/hr Q12 IV 12/09/16 21:00 12/16/16 20:59 UNV Albuterol (Ventolin Hfa Inhaler) 2 puffs QID PRN INH 12/09/16 14:45 01/08/17 14:44 UNV Amiodarone HCl (Cordarone Tab) 200 mg BID PO 12/09/16 21:00 01/08/17 20:59 Enoxaparin Sodium (Lovenox Inj) 60 mg Q12H SQ 12/09/16 14:45 01/08/17 14:44 UNV Levothyroxine Sodium (Synthroid Tab) 225 mcg DAILYBB PO 12/10/16 07:00 01/09/17 06:59 Loperamide HCl (Imodium Cap) 2 mg BID PO 12/09/16 21:00 01/08/17 20:59 Metoclopramide HCl (Reglan Tab) 5 mg AC PO 12/09/16 16:00 01/08/17 15:59 Nortriptyline HCl (Pamelor Cap) 10 mg HS PO 12/09/16 21:00 01/08/17 20:59 Ondansetron HCl (Zofran Tab) 8 mg TID PRN PO 12/09/16 14:45 01/08/17 14:44 Non-Formulary Medication (Aclidinium Macon (Tudorza Pressair)) 1 puff BID INH 12/09/16 21:00 01/08/17 20:59 UNV Non-Formulary Medication (Ciclesonide (Alvesco)) 1 puff BID PO 12/09/16 21:00 01/08/17 20:59 UNV Non-Formulary Medication (Control Gel Formula Dressing (Duoderm Cgf)) 1 patch CQ72HR TD 12/09/16 14:45 01/08/17 14:44 UNV Non-Formulary Medication (Docusate Sodium (Gnp Stool Softener)) 250 mg DAILY PRN PO 12/09/16 14:45 01/08/17 14:44 UNV Non-Formulary Medication (Emollient (Lubriskin)) 1 appln BID TOP 12/09/16 21:00 01/08/17 20:59 UNV Non-Formulary Medication (Ferrous Fumarate (Hemocyte)) 324 mg BID PO 12/09/16 21:00 01/08/17 20:59 UNV Non-Formulary Medication (Guaifenesin ) 800 mg TID PO 12/09/16 21:00 01/08/17 20:59 UNV Non-Formulary Medication (Hydrocortisone (Topical) (Hydrocortisone)) 1 appln TID PRN TOP 12/09/16 14:45 01/08/17 14:44 UNV Non-Formulary Medication 1 appln 1 appln DIRECTED TOP 12/09/16 14:45 01/08/17 14:44 UNV Linezolid/Prmx (Zyvox / D5W/ Premixed D5W) 300 ml @ 300 mls/hr Q12 IV 12/09/16 16:30 12/16/16 16:29 UNV Review of Systems A 10 point review systems is otherwise negative unless stated above in the history of present illness. Physical Exam Date Time Temp Pulse Resp B/P Pulse Ox O2 Delivery O2 Flow Rate FiO2 12/09/16 16:00 91/51 91 Nasal Cannula 4.0 12/09/16 15:51 82 19 88 12/09/16 15:46 79/46 12/09/16 15:21 84 26 88 12/09/16 14:46 57/37 95 Nasal Cannula 4.0 12/09/16 14:30 88/54 12/09/16 14:29 87 26 95 12/09/16 14:15 77/45 12/09/16 14:00 78/43 12/09/16 13:59 85 21 96 12/09/16 13:54 86 22 100 Nasal Cannula 4.0 12/09/16 13:45 73/52 5/10/17 13:39 84 24 95 Nebulizer 12/09/16 13:30 79/54 12/09/16 13:24 84 20 93 Nebulizer 12/09/16 13:15 78/49 12/09/16 13:09 77 19 94 Nebulizer 12/09/16 13:06 80 18 74/49 97 Nebulizer 12/09/16 13:04 79 25 74/49 91 Nebulizer 12/09/16 12:54 78 24 100 Nasal Cannula 4.0 12/09/16 12:49 80 26 71 12/09/16 12:34 78 12/09/16 12:34 99 27 87 12/09/16 12:32 93 Nasal Cannula 3.0 12/09/16 12:32 36.7 80 12 62/39 91 Nasal Cannula 3.0 12/09/16 12:32 91 Nasal Cannula 3.0 12/09/16 12:23 62/39 General Appearance: mild distress, cachetic Head: normocephalic, atraumatic Eyes: PERRLA, EOMI ENT: normal ear exam, normal nasal exam, normal mouth exam Neck: trachea midline, no stridor, supple, other (sternocledomastoid retraction ) Respiratory: other (coarse bilaterally; L > R; diminished breath sounds at bases) Cardiovasular: irregular rate Abdomen: non tender, normal bowel sounds, no rebound Back: other (left buttock decubitus ulcer) Lower Extremities: no edema, other (AKA of left lower extremity) Neuro: alert, oriented x 3 Psychiatric: normal affect Laboratory Results Last 24 Hours Test 12/09/16 12:30 12/09/16 12:47 12/09/16 12:59 12/09/16 16:03 White Blood Count 14.17 K/uL Red Blood Count 3.85 M/uL Hemoglobin 11.0 g/dL Hematocrit 35.3 % Mean Corpuscular Volume 91.7 fL Mean Corpuscular Hemoglobin 28.6 pg Mean Corpuscular Hemoglobin Concent 31.2 g/dl Platelet Count 402 K/uL Mean Platelet Volume 10.1 fL Neutrophils (%) (Auto) 89.4 % Lymphocytes (%) (Auto) 5.5 % Monocytes (%) (Auto) 4.0 % Eosinophils (%) (Auto) 0.0 % Basophils (%) (Auto) 0.1 % Neutrophils # (Auto) 12.67 K/uL Lymphocytes # (Auto) 0.78 K/uL Monocytes # (Auto) 0.56 K/uL Eosinophils # (Auto) 0.00 K/uL Basophils # (Auto) 0.02 K/uL RDW Standard Deviation 58.5 fL RDW Coefficient of Variation 18.2 % Immature Granulocyte % (Auto) 1.0 % Immature Granulocyte # (Auto) 0.14 K/uL Nucleated RBC Absolute Count (auto) 0.10 K/uL Nucleated Red Blood Cells % 0.7 % Polychromasia 1+ Prothrombin Time 15.1 SECONDS Prothromb Time International Ratio 1.4 Activated Partial Thromboplast Time 41.9 SECONDS Partial Thromboplastin Ratio 1.6 Sodium Level 137 mmol/L Potassium Level 3.5 mmol/L Chloride Level 100 mmol/L Carbon Dioxide Level 27 mmol/L Anion Gap 10.0 mmol/L Blood Urea Nitrogen 50 mg/dl Creatinine 1.50 mg/dl Est Creatinine Clear Calc Drug Dose 31.0 ml/min Estimated GFR () 54.3 Estimated GFR (Non- 46.8 BUN/Creatinine Ratio 33.6 Random Glucose 68 mg/dl Calcium Level 7.5 mg/dl Total Bilirubin 0.4 mg/dl Direct Bilirubin 0.2 mg/dl Aspartate Amino Transf (AST/SGOT) 390 U/L Alanine Aminotransferase (ALT/SGPT) 384 U/L Alkaline Phosphatase 354 U/L Total Creatine Kinase 257 U/L Creatine Kinase MB 4.1 ng/ml Creatine Kinase MB Ratio 1.6 Troponin I 1.400 ng/ml Total Protein 5.3 gm/dl Albumin 1.8 gm/dl Lipase 59 U/L Bedside Troponin I 1.430 ng/ml IW-Nou-O-Type Natriuretic Peptide > 84765 pg/ml Bedside Lactic Acid Venous 2.44 mmol/L Assessment & Plan (1) Necrotic pneumonia (2) Decubitus ulcer of left buttock (3) Acute kidney injury (4) Protein calorie malnutrition (5) History of left above knee amputation (6) History of pulmonary embolism (7) Decubital ulcer (8) Presence of IVC filter (9) Peripheral arterial disease (10) Atrial fibrillation and flutter (11) Sepsis (12) COPD (chronic obstructive pulmonary disease) (13) PVD (peripheral vascular disease) (14) Hypotension (15) Hypothyroidism This is a 71 year old patient, inmate at [facility]. Active problems list as noted above. Our plan for him is as follows NEUROLOGICAL - GCS: 15 - CAM-ICU negative - Monitor daily for signs of acute delirium CARDIOVASCULAR Septic Shock, Hypotension - Like 2/2 Pneumonia - BP: Profoundly hypotensive, MAP < 65 Central venous catheter placed in ICU; see separate procedure note Norepinephrine infusion started; titrate goal MAP > 65 - IV Fluids: 2L bolus crystalloid resuscitation - Central line in place - Arterial line placed for invasive monitoring of BP Atrial Fibrillation - Currently Rate controlled - Continue Amiodarone - Hold Metoprolol due to acute hypotension Acutely Elevated Troponin - TnI 1.4 today - Likely troponin leak or supply/demand mismatch - No complaints of chest pain - Continue to trend cardiac enzymes RESPIRATORY Acute Hypoxemic Respiratory Distress - Secondary to necrotic PNA - Baseline oxygen requirements 3 L by nasal cannula Patient is acutely hypoxic compared to baseline currently with need of 6L by nasal cannula to maintain saturations - Antibiotics as noted below Left Sided Pleural Effusions - CT surgery consulted; recommendations appreciated - PleurX catheter placed at bedside - Pleural studies pending; will add fungal culture Acute on Chronic COPD - 125 mg IV Solu-medrol given in the ED - DuoNeb GASTROINTESTINAL - Diet: NPO due to vasopressor infusion - GI Prophylaxis: Protonix IV while NPO Acute Transaminitis - Suspected due to shock liver - Monitor daily CMP RENAL//ENDOCRINE - Monitor daily fluid balance, including urine output; goal rate > 0.5 ml/kg/hr Acute Kidney Injury - Cr 1.5; baseline 0.5 Likely pre-renal etiology due to intravascular depletion - IV Fluids: Normasol at 150 ml/hr HEMATOLOGY/INFECTIOUS DISEASE - Afebrile; WBC on arrival 14 Sepsis 2/2 Necrotic PNA - Antibiotics: Zosyn Vancomycin given in ED: will change to Linezolid due to acute EDDIE - Blood cultures pending - Pleural fluid cultures pending, including fungal culture - ID consulted for antibiotic recommendations - DVT Prophylaxis: Patient arrives on Lovenox 60, unfortunately has acute EDDIE Will change to UFH 5000 q8H LINES/IV ACCESS - Right IJ triple lumen catheter - Left radial arterial line CODE STATUS - Full Code DISPOSITION - OT/PT: ordered - ICU Resident Physician Supervision Note: Dr. Moore was resident physician during care of patient. I separately evaluated patient and did history and exam. I discussed the case with the resident and generally agree with the findings and plan. patient critically ill due to septic shock, from R lobe PNA vs abscess, necrotic lesion, empyema, vs non-specific colitis. Requiring vasoactive medication support. Gentle hydration secondary to COR Pulmonale :Right Ventricle * Severely dilated right ventricle with reduced systolic function (not well visualized but probably at least moderately reduced). Prior echo results noted. .I have personally spent 60 minutes of critical care time in the direct management of this patient. This is a life/limb threatening event. This includes time spent evaluating patient, direct bedside care, chart review, placing orders, interpretation of diagnostic studies, discussion with consultants, patient, and family members, as well as other required patient management activities. This time is exclusive of all separately billable procedures, and teaching time and separate from and in addition to any other critical care service time. Documented By: Uzair Nesbitt DO
[2016-12-09] MEDS ORDERED: PIPERACILL/TAZOBAC CONSULT ACTIVE PRN (16:45)
[2016-12-09] MEDS ORDERED: HYDROCORTISONE 2.5% CR 30 GM TUBE EXT PRN (17:00)
[2016-12-09] MEDS ORDERED: NSS + 20MEQ KCL 1000ML 1,000 ML IV SCH (17:00)
[2016-12-09] MEDS ORDERED: DOCUSATE SODIUM 100 MG CAP PO PRN (17:00)
[2016-12-09] MEDS ORDERED: NURSING VERBAL MED ORDER STA (17:09)
[2016-12-09] MEDS: METOCLOPRAMIDE HCL 5 MG TAB PO SCH (17:10)
[2016-12-09] MEDS ORDERED: LANOLIN/PETROLATUM 30 GM TUBE EXT PRN ×2 (17:15)
[2016-12-09] MEDS ORDERED: LIDOCAINE HCL 1% 20 ML VIAL ONE (17:20)
[2016-12-09] MEDS ORDERED: NOREPINEPHRINE BIT INJ 8 MG in DEXTROSE 5% 500ML 500 ML IV PRN (17:30)
--- NOTE | 2016-12-09 18:34 | Procedure Note ---
Procedure Note Date of Service December 09, 2016. (Anderson Moore MD) Procedure Note Pre-Procedure Diagnosis: Left Necrotic Pneumonia, Sepsis, Hypotension Post-Procedure Diagnosis: Same Type of Procedure: Central Venous Catheter Placement Performing Physician: Dr. Anderson Moore, PGY2 Family Medicine Attending/Supervising Physician: Dr. Uzair Zaman, Critical Care Physician Indication: Hypotension, need for vasopressor administration Consent: Detailed explanation of the procedure, treatment options, risks including but not limited to infection and bleeding, and benefits were explained to the patient. A written informed consent was obtained and placed in the patient's chart. Technique: A time out was preformed identifying the correct procedure, the correct location with the nursing staff. The right neck was prepped with 2% chlorhexidine and draped with a full length sterile sheet in the usual fashion. 1% lidocaine was administered subcutaneously for local anesthesia. The right internal jugular vein was accessed under ultrasound guidance with an 18 gauge thin wall needle. A Triple Lumen Catheter was inserted via the Seldinger technique. Blood was withdrawn from all lumens and flushed with normal saline. The catheter was sutured in place and a sterile dressing was applied over the site prior to removal of drapes. The patient tolerated the procedure well and there were no complications. Chest x ray is pending at this time. EBL: 3 cc Complication: None (Anderson Moore MD) I was present during the entire procedure and assisted. (Uzair Nesbitt, D.O.)
--- NOTE | 2016-12-09 18:52 | DIAGNOSTIC IMAGING REPORT ---
CHEST ONE VIEW PORTABLE CLINICAL HISTORY: pleur and central line placement COMPARISON STUDY: Same date 12:42 PM FINDINGS: Mild stable cardiomegaly. Pulmonary vascular congestion. Central catheter in superior vena cava. No evidence for pneumothorax. IMPRESSION: Findings consistent with interstitial pulmonary edema. Center catheters. Vena cava. No evidence for pneumothorax. Pleural catheter left base with slight improvement in aeration left base. Small medical customer service representative shadow overlying right third rib, less likely representing a small apical pneumothorax obscured by rib detail Electronically signed by: Domo Lucas M.D. 12/09/2016 6:50 PM Dictated Date/Time: 12/09/2016 6:46 PM
[2016-12-09] MEDS: NORMOSOL R 1,000 ML IV SCH (18:59)
[2016-12-09] MEDS: PIPERACILL/TAZOBAC IV 3.375 GM in DEXTROSE 5% 100ML 100 ML IV SCH (18:59)
[2016-12-09] MEDS: LINEZOLID / D5W 600 MG in PREMIXED IN D5W 300 ML IV SCH (18:59)
[2016-12-09] MEDS: ALBUT/IPRATROP 3MG/0.5MG NEB 3 ML VIAL INH SCH (19:20)
[2016-12-09 19:46] LABS: PLEURAL FLUID TOTAL PROTEIN 0.9 g/dl
--- NOTE | 2016-12-09 20:12 | Procedure Note ---
Procedure Note Date of Service December 09, 2016. (Anderson Moore MD) I was physically present and assisted with the entire procedure (Uzair Nesbitt D.OAdriana) Procedure Note Pre-Procedure Diagnosis: Sepsis Post-Procedure Diagnosis: Same Indication: Hypotension, need for invasive BP monitoring Performing Physician: Dr. Anderson Moore, PGY2 Family Medicine Assisting Physician: Dr. Uzair Zaman, Critical Care Attending Type of Procedure: Arterial Catheter Placement Consent: Detailed explanation of the procedure, treatment options, risks including but not limited to infection, bleeding, local tissue/nerve damage, and benefits were explained to the patient. A written informed consent was obtained and placed in the patient's chart. Technique: A time out was preformed identifying the correct procedure, the correct location with the nursing staff. The right/left wrist/groin was prepped with 2% chlorhexidine and draped with a sterile sheet in the usual fashion. 1% lidocaine was administered subcutaneously for local anesthesia. The left radial artery was cannulated with a 20 gauge catheter. The catheter was kept in place with a Stat-Lock and sterile dressing was applied over the site prior to removal of drapes. The patient tolerated the procedure without complications. EBL: 1 cc Complication: None (Anderson Moore MD)
[2016-12-09 20:23] LABS: PLEURAL FLUID APPEARANCE CLEAR; PLEURAL FLUID COLOR PALE YELLOW; PLEURAL FLUID MONONUC RELAT 37.7 %; PLEURAL FLUID POLYNUC 62.3 %; PLEURAL FLUID SOURCE LEFT LUNG; PLEURAL FLUID WBC (A) 109 /uL
[2016-12-09] MEDS: FERROUS GLUCONATE 324 MG TAB PO SCH (20:48)
[2016-12-09] MEDS: LOPERAMIDE HCL 2 MG CAP PO SCH (20:49)
[2016-12-09] MEDS: AMIODARONE 200 MG TAB PO SCH (20:49)
[2016-12-09] MEDS: NORTRIPTYLINE HCL 10 MG CAP PO SCH (20:51)
[2016-12-09] MEDS: HEPARIN SOD 5000 UNIT/0.5 ML CARP SQ SCH (20:55)
[2016-12-09] MEDS ORDERED: PANTOprazole SOD 40 MG TAB PO ONE (21:00)
[2016-12-09] MEDS ORDERED: EMOLLIENT TOP SCH (21:00)
[2016-12-09] MEDS ORDERED: VANCOMYCIN INJ 1,000 MG in SODIUM CHLORIDE 0.9% 250ML 250 ML IV SCH (21:00)
[2016-12-09] MEDS ORDERED: ENOXAPARIN 60 MG/0.6 ML SYR SQ SCH (21:00)
[2016-12-09 21:04] LABS: URINE APPEARANCE CLEAR (CLEAR); URINE BILIRUBIN NEG (NEG); URINE COLOR YELLOW; URINE NITRITE NEG (NEG); URINE PH 5.5 (4.5-7.5); URINE SPECIFIC GRAVITY 1.018 (1.000-1.030); UROBILINOGEN NEG (NEG)
[2016-12-09 21:10] LABS: MANUAL MICROSCOPIC REQUIRED? NO; REVIEW REQ? YES
[2016-12-09] MEDS: GUAIFENESIN 200 MG TAB PO SCH (21:18)
[2016-12-09] MEDS ORDERED: GLUCAGON FOR INJ 1 MG VIAL SQ PRN (21:45)
[2016-12-09] MEDS ORDERED: PHARMACY GLYCEMIC MGMT CONSULT PRN (21:45)
[2016-12-09] MEDS ORDERED: GLUCOSE 40% GEL 15 GM TUBE PO PRN (21:45)
[2016-12-09] MEDS ORDERED: DEXTROSE 50% 50 ML SYR IV PRN (21:45)
[2016-12-09] MEDS ORDERED: GLUCOSE 10 TABS/TUBE PO PRN (21:45)
[2016-12-09] MEDS: INSULIN ASPART 100 UNITS/ML 3 ML PEN SC SCH (22:22)
[2016-12-09] MEDS: POTASSIUM CHLR 20 MEQ / WTR 20 MEQ in PREMIXED WATER 100 ML IV SCH (23:36)
[2016-12-10] VITALS (53 sets, daily range): BP systolic 67–285; BP diastolic 37–283; PULSE 85–99; TEMP 36.5–37; O2SAT 82–98
[2016-12-10] MEDS: NORMOSOL R 1,000 ML IV SCH ×3 (01:34→18:16)
[2016-12-10] MEDS: POTASSIUM CHLR 20 MEQ / WTR 20 MEQ in PREMIXED WATER 100 ML IV SCH (01:34)
[2016-12-10] MEDS: PIPERACILL/TAZOBAC IV 3.375 GM in DEXTROSE 5% 100ML 100 ML IV SCH ×3 (01:40→18:16)
[2016-12-10] MEDS: INSULIN ASPART 100 UNITS/ML 3 ML PEN SC SCH ×5 (01:48→21:00)
--- NOTE | 2016-12-10 01:55 | SURGICAL CONSULTATION ---
DATE OF CONSULTATION: 12/09/2016 REASON FOR CONSULTATION: Left pleural effusion and a left lower lobe process (questionable necrosis). HISTORY OF PRESENT ILLNESS: This is a 71-year-old emaciated prisoner from [facility] [place], who was in the hospital with respiratory failure, developed atrial fibrillation and when he converted back to sinus rhythm, was noted to have an ischemic left lower extremity femoropopliteal artery occlusion. This was unable to be revascularized. He underwent a left above-knee amputation. He presents now with a 4-day history of increasing shortness of breath, according to the [facility] guards. He is gurgling. The patient has continued to lose weight and has lost 25 pounds in the last few months. The staff notes that he looks as if he has lost weight since his hospitalization recently for his amputation. The patient denies hemoptysis. He is having pain in the sacral area where he has a pressure wound. I discussed this case with Dr. Nesbitt and we are concerned about the appearance of this fluid on the left. He is also concerned about the appearance of the left lower lobe, although it appears to me that there is an abrupt cut-off in the left lower lobe bronchus. PAST MEDICAL HISTORY: 1. Apparent remote history of lung cancer with treatment, but not at this institution. 2. Atrial fibrillation. 3. Acute renal injury. 4. Chronic obstructive pulmonary disease. 5. Pressure wound of the left ischium and sacrum. 6. History of pulmonary embolism. 7. Hypothyroidism. 8. Weight loss. 9. History of cigarette smoking. PAST SURGICAL HISTORY: 1. Left clpog-jha-wjor amputation. 2. Insertion of a left infraclavicular Port-A-Cath with subsequent removal (the catheter itself is still in place, but the reservoir been removed). 3. Insertion of a vena cava filter. 4. Embolectomy, left lower extremity. 5. Cervical discectomy. 6. Appendectomy. MEDICATIONS: Please see chart. ALLERGIES: 1. ASPIRIN. 2. ROSUVASTATIN. 3. PROCAINE. SOCIAL HISTORY: The patient has been a resident of [facility] for an extended period of time. He does not smoke cigarettes at this time. REVIEW OF SYSTEMS: The patient continues to lose weight. He has become more short of breath. He has been complaining of pain in the sacral and buttock area with a pressure wound, which has worsened, that he has had for a long period of time. The patient is short of breath. He has a history of smoking with more than 50-pack years. He denies palpitations. He has not been eating well. He has been moving his bowels, he has some diarrhea. He has no other skin breakdown other than his sacral and ischial area. The patient has no focal deficits to suggest a transient ischemic attack. He has had no seizures. He has had no visual or auditory symptoms. PHYSICAL EXAMINATION: GENERAL: This is an emaciated white male, who wears glasses. He has temporal wasting. He is very slow to answer questions. He is a very small man. He weighs 48 kilograms. HEENT: His oral mucosa is quite dry. His tongue is midline. He wears glasses. His extraocular movements are intact. His sclerae are pale. NECK: Supple. I do not hear carotid bruits. He has no neck vein distention. LUNGS: He has decreased breath sounds at both lung [place], but worse on the left than the right. HEART: He has a regular rate and rhythm of his heart, but he is hypotensive. VITAL SIGNS: His blood pressure is 84/48. Heart rate in the 90s. He is on 6 liters of O2 with 87% saturations. ABDOMEN: Scaphoid, soft. He has a well-healed right lower quadrant incision. His right lower extremity is thin and atrophied. He has a healed left above-knee amputation stump. He has had some pressure over the distal femur. The incision itself was clean. NEUROLOGICAL: He is awake and alert and answers questions, although it is difficult to understand him. He does move all extremities to command. ASSESSMENT AND PLAN: Left lower lobe process with a pleural effusion. I have discussed this with Dr. Nesbitt and I am going to insert a PleurX catheter later on [facility].
[2016-12-10] MEDS: LINEZOLID / D5W 600 MG in PREMIXED IN D5W 300 ML IV SCH ×2 (04:14→16:12)
[2016-12-10] MEDS: LEVOTHYROXINE 75 MCG TAB PO SCH (05:38)
[2016-12-10] MEDS: HEPARIN SOD 5000 UNIT/0.5 ML CARP SQ SCH (05:38)
[2016-12-10 05:52] LABS: BASO % 0.1 %; BASO ABS # 0.01 K/uL (0-0.2); COMPLETE YES; HEMATOCRIT 29.9 % (42-52); IG% 0.7 %; LYMPH % 1.2 %; LYMPH ABS # 0.17 K/uL (1.2-3.4); MEAN CELL VOLUME 90.1 fL (80-100); MEAN CORPUSCULAR HGB CONC 31.1 g/dl (32-36); MEAN PLATELET VOLUME 9.4 fL (7.4-10.4); MONO % 4.7 %; NEUT % 93.3 %; PLATELET COUNT 318 K/uL (130-400); RED BLOOD COUNT 3.32 M/uL (4.7-6.1); WHITE BLOOD COUNT 13.73 K/uL (4.8-10.8)
[2016-12-10 06:02] LABS: INR 1.2 (0.9-1.1); PARTIAL THROMBOPLASTIN RATIO 1.4; PROTHROMBIN TIME (PATIENT) 12.7 SECONDS (9.0-12.0)
[2016-12-10 06:29] LABS: ALT/SGPT 262 U/L (12-78); AST/SGOT 177 U/L (15-37); BLOOD UREA NITROGEN 20 mg/dl (7-18); BUN/CREATININE RATIO 31.7 (10-20); CARBON DIOXIDE 27 mmol/L (21-32); CHLORIDE 101 mmol/L (98-107); CREATININE 0.64 mg/dl (0.60-1.40); GLUCOSE 200 mg/dl (70-99); MAGNESIUM 2.1 mg/dl (1.8-2.4); POTASSIUM 3.5 mmol/L (3.5-5.1); SODIUM 137 mmol/L (136-145)
[2016-12-10] MEDS: METOCLOPRAMIDE HCL 5 MG TAB PO SCH ×3 (06:30→16:12)
[2016-12-10 06:31] LABS: CALCIUM 7.5 mg/dl (8.5-10.1)
[2016-12-10] MEDS ORDERED: POTASSIUM CHLR 20 MEQ / WTR 20 MEQ in PREMIXED WATER 100 ML IV STA (06:34)
[2016-12-10 07:01] LABS: ALKALINE PHOSPHATASE 239 U/L (45-117); PHOSPHORUS 1.5 mg/dl (2.5-4.9)
[2016-12-10] MEDS ORDERED: POTASSIUM PHOS 3 MMOL/1 ML INFUSION IV STA (07:03)
--- NOTE | 2016-12-10 07:12 | DIAGNOSTIC IMAGING REPORT ---
CHEST ONE VIEW PORTABLE CLINICAL HISTORY: Hypoxia. Pleural effusion. COMPARISON STUDY: 12/09/2016 FINDINGS: There is a right internal jugular central venous catheter. There is a left subclavian vein catheter fragment unchanged in position. There is pulmonary emphysema. The cardiac and mediastinal contours remain stable. There are persistent bilateral airspace opacities. There is stable hilar prominence, consistent with the recently described adenopathy IMPRESSION: Persistent bilateral pulmonary airspace opacities. Underlying emphysema. Electronically signed by: Aramis Lassiter M.D. 12/10/2016 7:10 AM Dictated Date/Time: 12/10/2016 7:08 AM
--- NOTE | 2016-12-10 07:41 | Critical Care Progress Note ---
Critical Care Progress Note Date of Service December 10, 2016. ICU Day ICU Day Number: [address] Nesbitt Subjective Patient feels breathing is stabilizing Overall comfortable at nighttime; complains this morning of some pain on the left lower ribcage margin No other acute issues overnight Objective General Appearance: comfortable, cachetic Head: normocephalic, atraumatic Eyes: PERRLA, EOMI ENT: normal ear exam, normal nasal exam, normal mouth exam Neck: trachea midline, no stridor, supple; CVC in place, overlying skin appears dry and intact Respiratory: coarse breath sounds bilaterally with expiratory wheezing bilaterally Pleurx catheter in place; incisions appear normal Cardiovasular: regular rate, S1 and S2 no added sounds or murmurs Abdomen: non tender, normal bowel sounds, no rebound Back: other (left buttock decubitus ulcer) Lower Extremities: no edema, other (AKA of left lower extremity) Neuro: alert, oriented x 3, CAM-ICU negative Psychiatric: normal affect Current SOFA Score SOFA Score Response (Comments) Value PaO2/FiO2 (mmHg) < 400 1 SaO2 / FIO2 67 - 141 3 [place] Coma Score 15 0 Level of Hypotension Dopamine > 15 mcq or Epi > 0.1 mcq 4 Total 8 Assessment & Plan (1) Necrotic pneumonia (2) Decubitus ulcer of left buttock (3) Acute kidney injury (4) Protein calorie malnutrition (5) History of left above knee amputation (6) History of pulmonary embolism (7) Decubital ulcer (8) Presence of IVC filter (9) Peripheral arterial disease (10) Atrial fibrillation and flutter (11) Sepsis (12) COPD (chronic obstructive pulmonary disease) (13) PVD (peripheral vascular disease) (14) Hypotension (15) Hypothyroidism (16) History of anal cancer This is a 71 year old patient, inmate at [facility], with acute problem list as noted above. Main concern at this point is the nature of the necrotic lung mass. 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 The question at this point is whether this current undifferentiated necrotic mass is a new cancer or recurrence. Our plan for him is as follows NEUROLOGICAL - GCS: 15 - CAM-ICU negative Pain is well controlled - Mild left subcostal discomfort may be secondary to pleural irritation from Pleurx, or irritation from necrotic mass CARDIOVASCULAR Septic Shock, Hypotension - Like 2/2 obstructive pneumonia - BP: Maintaining all mean arterial pressure greater than 65 on norepinephrine infusion Titrate down as tolerated - IV Fluids: Continue Normosol at a rate of 100 mL/hr - Central line and radial artery catheter in place Atrial Fibrillation - Sinus rhythm and Currently Rate controlled - Continue Amiodarone - Hold Metoprolol due to acute hypotension Acutely Elevated Troponin - TnI 1.4 on arrival; came down this morning to 1.1 - Most likely troponin leak secondary to increased metabolic demand and sepsis - Likely troponin leak or supply/demand mismatch - Discontinue cardiac enzyme monitoring RESPIRATORY Acute Hypoxemic Respiratory Distress - Secondary to obstructive pneumonia - Continues to use 6 L by nasal cannula and diffusion mask; - Goal saturations 88-92%, given history of COPD - Baseline oxygen needs 3 L by nasal cannula at all times Left Sided Pleural Effusions - Pleurx catheter in situ ; drained 400 mL christiano fluid this morning - Cardiac thoracic surgery is consulted and following the patient, there certainly recommendations - PleurX catheter placed at bedside - Pleural studies indicate that this is a transudative effusion, per Lights criteria interesting considering there is a high suspicion for lung malignancy - All pleural fluid collected for the next 48 hours will be sent for cytology Acute on Chronic COPD - Solu-medrol 40 mg TID; taper down per clinical status - DuoNeb GASTROINTESTINAL - Diet: NPO due to vasopressor infusion - GI Prophylaxis: Protonix IV while NPO Acute Transaminitis - Improving; Suspected due to shock liver - Continue follow daily liver function - Hepatitis panel pending 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 - Concern at this point is whether left sided necrotic lung mass that he currently has is metastatic recurrence of an old cancer - We will reconsult hematology/oncology today to determine whether any of the data at this point suggest current lung mass, points to recurrence, in the absence of definitive histological evaluation RENAL//ENDOCRINE - Monitor daily fluid balance, including urine output; goal rate > 0.5 ml/kg/hr - Q moderately +2.7 L; meeting urine output goal of 0.5 ml/kg/hr Acute Kidney Injury - Cr improved to 0.6 for today; acne baseline of 0.5 - IV Fluids: Normosol at 100 mL per hour HEMATOLOGY/INFECTIOUS DISEASE - Remains afebrile ; white blood cell count improved slightly to 13 (14 on arrival ) Anemia - Hemoglobin/hematocrit 9.3/29 respectively - Likely delusional from fluid resuscitation Sepsis 2/2 Necrotic PNA - Antibiotics: Continue Zosyn and linezolid - Blood cultures pending - Pleural fluid cultures pending, including fungal culture - ID consulted for antibiotic recommendations -History of DVT - Patient arrived on Lovenox 60 twice a day; this was stopped due to concurrent EDDIE - Renal function has improved today - We'll check a factor X A level; will restart Lovenox per result LINES/IV ACCESS - Right IJ triple lumen catheter - Left radial arterial line - Right 18-gauge - Left 20-gauge CODE STATUS - Full Code DISPOSITION - OT/PT: ordered - ICU Resident Physician Supervision Note: Dr. Moore was resident physician during care of patient. I separately evaluated patient and did history and exam. I discussed the case with the resident and generally agree with the findings and plan. Critically ill due to sepsis, possible post-obstructive pneumonitis vs abscess vs. necrotic mass. Highly concerned for malignancy. Will send cytology for 3 days. I have personally spent 35 minutes of critical care time in the direct management of this patient. This is a life/limb threatening event. This includes time spent evaluating patient, direct bedside care, chart review, placing orders, interpretation of diagnostic studies, discussion with consultants, patient, and family members, as well as other required patient management activities. This time is exclusive of all separately billable procedures, and teaching time and separate from and in addition to any other critical care service time. Documented By: Uzair Nesbitt DO Consults & Procedures Consultants: CT surgery Hematology/Oncology Procedures: PleurX catheter CVC placement Radial arterial line placement Data Medications: Current Inpatient Medications Medications (Trade) Dose Ordered Sig/Malcolm Route Start Time Stop Time Status Last Admin Dose Admin Lorazepam (Ativan Tab) 1 mg Q6H PRN PO 12/09/16 14:45 01/08/17 14:44 Nitroglycerin (Nitrostat Tab) 0.4 mg UD PRN SL 12/09/16 14:45 01/08/17 14:44 Al Hydrox/Mg Hydrox/Simethicone (Maalox Max Susp) 15 ml Q4H PRN PO 12/09/16 14:45 01/08/17 14:44 Magnesium Hydroxide (Milk Of Magnesia Susp) 30 ml Q12H PRN PO 12/09/16 14:45 01/08/17 14:44 Ondansetron HCl (Zofran Inj) 4 mg Q6H PRN IV 12/09/16 14:45 01/08/17 14:44 Albuterol/ Ipratropium 3 ml 3 ml QIDR INH 12/09/16 16:00 01/08/17 15:59 12/09/16 19:20 3 ML Piperacillin Sod/ Tazobactam Sod/ Dextrose (Zosyn Iv/D5 100ml) 115 ml @ 28.75 mls/ hr Q8H IV 12/09/16 18:00 12/16/16 09:59 12/10/16 01:40 28.75 MLS/HR Albuterol (Ventolin Hfa Inhaler) 2 puffs QID PRN INH 12/09/16 14:45 01/08/17 14:44 Amiodarone HCl (Cordarone Tab) 200 mg BID PO 12/09/16 21:00 01/08/17 20:59 12/09/16 20:49 200 MG Levothyroxine Sodium (Synthroid Tab) 225 mcg DAILYBB PO 12/10/16 06:00 01/09/17 06:59 12/10/16 05:38 225 MCG Loperamide HCl (Imodium Cap) 2 mg BID PO 12/09/16 21:00 01/08/17 20:59 12/09/16 20:49 2 MG Metoclopramide HCl (Reglan Tab) 5 mg AC PO 12/09/16 16:00 01/08/17 15:59 12/10/16 06:30 5 MG Nortriptyline HCl (Pamelor Cap) 10 mg HS PO 12/09/16 21:00 01/08/17 20:59 12/09/16 20:51 10 MG Ondansetron HCl (Zofran Tab) 8 mg TID PRN PO 12/09/16 14:45 01/08/17 14:44 Miscellaneous Information (Order Awaiting Action) 1 ea QS N/A 12/10/16 00:00 01/09/17 00:00 Miscellaneous Information (Order Awaiting Action) 1 ea QS N/A 12/10/16 00:00 01/09/17 00:00 Docusate Sodium (coLACE CAP) 200 mg DAILY PRN PO 12/09/16 17:00 01/08/17 16:59 Ferrous Gluconate (Ferrous Gluconate Tab) 324 mg BIDM PO 12/09/16 17:30 01/08/17 17:29 12/09/16 20:48 324 MG Guaifenesin (Organidin Nr Tab) 800 mg TID PO 12/09/16 21:00 01/08/17 20:59 12/09/16 21:18 800 MG Hydrocortisone (Hydrocortisone 2.5% Crm) 1 appln TID PRN EXT 12/09/16 17:00 01/08/17 16:59 Multi-Ingredient Ointment 1 gm 1 gm PRN PRN EXT 12/09/16 17:15 01/08/17 17:14 Linezolid/Prmx (Zyvox / D5W/ Premixed D5W) 300 ml @ 300 mls/hr Q12@0400,1600 IV 12/09/16 17:00 12/16/16 15:59 12/10/16 04:14 300 MLS/HR Piperacillin Sod/ Tazobactam Sod 1 ea 1 ea UD PRN N/A 12/09/16 16:45 01/08/17 16:44 Norepinephrine Bitartrate 8 mg/ Dextrose 508 ml @ 0 mls/hr Q0M PRN IV 12/09/16 17:30 01/08/17 17:29 12/09/16 18:58 8 MLS/HR Parenteral Electrolyte Solution 1,000 ml @ 150 mls/hr Q6H40M IV 12/09/16 17:30 01/08/17 17:29 12/10/16 01:34 150 MLS/HR Pantoprazole Sodium/Syringe (Protonix Inj/ Syringe) 10 ml @ 5 mls/min DAILY@1100 IV 12/10/16 11:00 01/09/17 10:59 Heparin Sodium (Porcine) (Heparin Sq 5000 Unit/0.5ml) 5,000 unit Q8 SQ 12/09/16 22:00 01/08/17 21:59 12/10/16 05:38 5,000 UNIT Miscellaneous Information (Consult Glycemic Management Pharmacy) 1 ea UD PRN N/A 12/09/16 21:45 01/08/17 21:44 Insulin Aspart (novoLOG ASPART) SLIDING SCALE ACHS SC 12/09/16 22:00 01/08/17 21:59 12/10/16 06:36 1 UNITS Glucose (Glucose 40% Gel) 15-30 GRAMS 15 GRAMS... UD PRN PO 12/09/16 21:45 01/08/17 21:44 Glucose (Glucose Chew Tab) 4-8 Tablets 4 Tabl... UD PRN PO 12/09/16 21:45 01/08/17 21:44 Dextrose (Dextrose 50% 50ML Syringe) 25-50ML OF 50% DW IV FOR... UD PRN IV 12/09/16 21:45 01/08/17 21:44 Glucagon (Glucagon Inj) 1 mg UD PRN SQ 12/09/16 21:45 01/08/17 21:44 Insulin Aspart (novoLOG ASPART) SLIDING SCALE 0200 SC 12/10/16 02:00 01/09/17 01:59 Heparin Sodium (Porcine) 5 ml 5 ml PRN PRN FLUSH 12/10/16 00:45 01/09/17 00:44 Potassium Chloride 20 meq/ Prmx 100 ml @ 50 mls/hr NOW STAT IV 12/10/16 06:34 12/10/16 08:33 12/10/16 06:44 50 MLS/HR Potassium Phosphate/Sodium Chloride (Potassium Phosphate Inj/Nss 500ml) 508 ml @ 88 mls/hr TODAY@0800 ONCE IV 12/10/16 08:00 12/10/16 13:46 I & O: 24-Hour Column 12/10/16 07:59 Intake Total 5268 ml Output Total 1775 ml Balance 3493 ml Vital Signs: Date Time Temp Pulse Resp B/P Pulse Ox O2 Delivery O2 Flow Rate FiO2 12/10/16 06:00 87 26 106/59 90 106/53 12/10/16 05:30 87 21 100/52 89 98/47 12/10/16 05:00 86 20 99/57 89 100/47 12/10/16 04:30 85 19 106/55 90 98/47 12/10/16 04:00 Nasal Cannula 6.0 12/10/16 04:00 36.5 86 26 115/69 89 104/51 12/10/16 03:31 85 21 112/75 94 113/52 12/10/16 03:30 85 21 92 115/54 12/10/16 03:00 86 27 117/66 93 108/50 12/10/16 02:30 87 23 105/69 92 102/49 12/10/16 02:02 87 24 114/68 91 105/50 12/10/16 01:30 86 22 115/67 92 110/53 12/10/16 01:00 86 21 102/67 91 104/51 12/10/16 00:30 86 20 116/66 91 104/52 12/10/16 00:00 36.6 86 20 93/61 90 98/50 12/09/16 23:59 Nasal Cannula 6.0 12/09/16 23:45 88 26 121/69 91 110/53 12/09/16 23:31 86 22 106/56 90 94/46 12/09/16 23:30 86 18 91 101/49 12/09/16 23:15 86 19 99/64 90 98/48 12/09/16 23:00 85 17 93/58 91 98/42 12/09/16 23:00 85 17 93/58 91 98/42 12/09/16 22:45 84 19 91/80 91 94/47 12/09/16 22:31 85 19 96/51 88 92/46 12/09/16 22:16 84 21 95/56 91 100/46 12/09/16 22:03 85 18 99/55 89 99/47 12/09/16 21:55 86 19 82/54 91 99/47 12/09/16 21:30 85 17 86/61 92 96/47 12/09/16 21:15 84 18 89/50 92 97/47 12/09/16 21:00 86 18 84/47 92 97/45 12/09/16 20:45 87 19 90/57 91 106/47 12/09/16 20:43 89 19 96/50 89 115/49 12/09/16 20:28 88 20 97/57 92 107/44 12/09/16 20:00 36.8 88 19 82/60 93 100/44 12/09/16 20:00 92 Nasal Cannula 6.0 12/09/16 19:54 88 21 78/50 92 97/43 12/09/16 19:46 88 20 78/54 92 88/40 12/09/16 19:37 88 25 92/54 92 99/44 12/09/16 19:31 88 25 111/39 88 101/45 12/09/16 19:26 85 20 91 Nasal Cannula 7.0 12/09/16 19:15 85 23 82/50 91 111/61 12/09/16 17:03 36.6 91 26 84/48 87 Nasal Cannula 6.0 12/09/16 16:23 36.7 82 19 91/51 91 12/09/16 16:00 91/51 91 Nasal Cannula 4.0 12/09/16 15:51 82 19 88 12/09/16 15:46 79/46 12/09/16 15:21 84 26 88 12/09/16 14:46 57/37 95 Nasal Cannula 4.0 12/09/16 14:30 88/54 12/09/16 14:29 87 26 95 12/09/16 14:15 77/45 12/09/16 14:00 78/43 12/09/16 13:59 85 21 96 12/09/16 13:54 86 22 100 Nasal Cannula 4.0 12/09/16 13:45 73/52 12/09/16 13:39 84 24 95 Nebulizer 12/09/16 13:30 79/54 12/09/16 13:24 84 20 93 Nebulizer 12/09/16 13:15 78/49 12/09/16 13:09 77 19 94 Nebulizer 12/09/16 13:06 80 18 74/49 97 Nebulizer 12/09/16 13:04 79 25 74/49 91 Nebulizer 12/09/16 12:54 78 24 100 Nasal Cannula 4.0 12/09/16 12:49 80 26 71 12/09/16 12:34 78 12/09/16 12:34 99 27 87 12/09/16 12:32 93 Nasal Cannula 3.0 12/09/16 12:32 36.7 80 12 62/39 91 Nasal Cannula 3.0 12/09/16 12:32 91 Nasal Cannula 3.0 12/09/16 12:23 62/39 Laboratory Results: Last 24 Hours Test 12/09/16 12:30 12/09/16 12:47 12/09/16 12:59 12/09/16 17:55 White Blood Count 14.17 K/uL Red Blood Count 3.85 M/uL Hemoglobin 11.0 g/dL Hematocrit 35.3 % Mean Corpuscular Volume 91.7 fL Mean Corpuscular Hemoglobin 28.6 pg Mean Corpuscular Hemoglobin Concent 31.2 g/dl Platelet Count 402 K/uL Mean Platelet Volume 10.1 fL Neutrophils (%) (Auto) 89.4 % Lymphocytes (%) (Auto) 5.5 % Monocytes (%) (Auto) 4.0 % Eosinophils (%) (Auto) 0.0 % Basophils (%) (Auto) 0.1 % Neutrophils # (Auto) 12.67 K/uL Lymphocytes # (Auto) 0.78 K/uL Monocytes # (Auto) 0.56 K/uL Eosinophils # (Auto) 0.00 K/uL Basophils # (Auto) 0.02 K/uL RDW Standard Deviation 58.5 fL RDW Coefficient of Variation 18.2 % Immature Granulocyte % (Auto) 1.0 % Immature Granulocyte # (Auto) 0.14 K/uL Nucleated RBC Absolute Count (auto) 0.10 K/uL Nucleated Red Blood Cells % 0.7 % Polychromasia 1+ Prothrombin Time 15.1 SECONDS Prothromb Time International Ratio 1.4 Activated Partial Thromboplast Time 41.9 SECONDS Partial Thromboplastin Ratio 1.6 Sodium Level 137 mmol/L Potassium Level 3.5 mmol/L Chloride Level 100 mmol/L Carbon Dioxide Level 27 mmol/L Anion Gap 10.0 mmol/L Blood Urea Nitrogen 50 mg/dl Creatinine 1.50 mg/dl Est Creatinine Clear Calc Drug Dose 31.0 ml/min Estimated GFR () 54.3 Estimated GFR (Non- 46.8 BUN/Creatinine Ratio 33.6 Random Glucose 68 mg/dl Calcium Level 7.5 mg/dl Total Bilirubin 0.4 mg/dl Direct Bilirubin 0.2 mg/dl Aspartate Amino Transf (AST/SGOT) 390 U/L Alanine Aminotransferase (ALT/SGPT) 384 U/L Alkaline Phosphatase 354 U/L Total Creatine Kinase 257 U/L Creatine Kinase MB 4.1 ng/ml Creatine Kinase MB Ratio 1.6 Troponin I 1.400 ng/ml Total Protein 5.3 gm/dl Albumin 1.8 gm/dl Lipase 59 U/L Bedside Troponin I 1.430 ng/ml TO-Abe-K-Type Natriuretic Peptide > 11709 pg/ml Bedside Lactic Acid Venous 2.44 mmol/L Lactic Acid Level 1.6 mmol/L Procalcitonin 0.58 ng/ml Test 12/09/16 18:23 12/09/16 18:30 12/09/16 20:25 12/09/16 21:15 Blood Gas Sample Site Heel Stick Bedside Blood Gas pH (LAB) 7.45 Bedside Blood Gas pCO2 (LAB) 33 mmHg Bedside Blood Gas pO2 (LAB) 109 mmHg Bedside Blood Gas HCO3 (LAB) 23 meq/L Bedside Blood Gas Total CO2 24 mEq/l Bedside Blood Gas Base Excess (LAB) -1.0 meq/L Bedside Blood Gas O2 Saturation 99.0 % Tio Test NA Oxygen Delivery Device Cannula Pleural Fluid Source LEFT LUNG Pleural Fluid Color PALE YELLOW Pleural Fluid Appearance CLEAR Pleural Fluid WBC 109 /uL Pleural Fluid RBC < 3000 /uL Pleural Fluid pH 7.45 Pleural Fluid Polynuclear WBCs % 62.3 % Pleural Fluid Mononuclear WBCs % 37.7 % Urine Color YELLOW Urine Appearance CLEAR Urine pH 5.5 Urine Specific [place] 1.018 Urine Protein NEG Urine Glucose (UA) NEG Urine Ketones TRACE Urine Occult Blood NEG Urine Nitrite NEG Urine Bilirubin NEG Urine Urobilinogen NEG Urine Leukocyte Esterase NEG Urine WBC (Auto) 1-5 /hpf Urine RBC (Auto) 0-4 /hpf Urine Hyaline Casts (Auto) 1-5 /lpf Urine Epithelial Cells (Auto) 10-20 /lpf Urine Bacteria (Auto) NEG Bedside Glucose (other) 195 mg/dl Test 12/09/16 21:55 12/09/16 22:21 12/10/16 01:49 12/10/16 05:12 Potassium Level 3.0 mmol/L Creatine Kinase MB 3.6 ng/ml Creatine Kinase MB Ratio Troponin I 1.030 ng/ml Bedside Glucose (other) 184 mg/dl 149 mg/dl Lactate Dehydrogenase 357 U/L Test 12/10/16 05:45 12/10/16 05:53 White Blood Count 13.73 K/uL Red Blood Count 3.32 M/uL Hemoglobin 9.3 g/dL Hematocrit 29.9 % Mean Corpuscular Volume 90.1 fL Mean Corpuscular Hemoglobin 28.0 pg Mean Corpuscular Hemoglobin Concent 31.1 g/dl Platelet Count 318 K/uL Mean Platelet Volume 9.4 fL Neutrophils (%) (Auto) 93.3 % Lymphocytes (%) (Auto) 1.2 % Monocytes (%) (Auto) 4.7 % Eosinophils (%) (Auto) 0.0 % Basophils (%) (Auto) 0.1 % Neutrophils # (Auto) 12.80 K/uL Lymphocytes # (Auto) 0.17 K/uL Monocytes # (Auto) 0.65 K/uL Eosinophils # (Auto) 0.00 K/uL Basophils # (Auto) 0.01 K/uL RDW Standard Deviation 56.7 fL RDW Coefficient of Variation 18.0 % Immature Granulocyte % (Auto) 0.7 % Immature Granulocyte # (Auto) 0.10 K/uL Nucleated RBC Absolute Count (auto) 0.10 K/uL Nucleated Red Blood Cells % 0.7 % Prothrombin Time 12.7 SECONDS Prothromb Time International Ratio 1.2 Activated Partial Thromboplast Time 36.8 SECONDS Partial Thromboplastin Ratio 1.4 Sodium Level 137 mmol/L Potassium Level 3.5 mmol/L Chloride Level 101 mmol/L Carbon Dioxide Level 27 mmol/L Anion Gap 9.0 mmol/L Blood Urea Nitrogen 20 mg/dl Creatinine 0.64 mg/dl Est Creatinine Clear Calc Drug Dose 75.8 ml/min Estimated GFR () 115.8 Estimated GFR (Non- 99.9 BUN/Creatinine Ratio 31.7 Random Glucose 200 mg/dl Lactic Acid Level 1.2 mmol/L Calcium Level 7.5 mg/dl Phosphorus Level 1.5 mg/dl Magnesium Level 2.1 mg/dl Total Bilirubin 0.4 mg/dl Direct Bilirubin 0.2 mg/dl Aspartate Amino Transf (AST/SGOT) 177 U/L Alanine Aminotransferase (ALT/SGPT) 262 U/L Alkaline Phosphatase 239 U/L Creatine Kinase MB 2.6 ng/ml Creatine Kinase MB Ratio Troponin I 1.010 ng/ml Total Protein 4.4 gm/dl Albumin 1.5 gm/dl Procalcitonin 0.37 ng/ml Bedside Glucose (other) 208 mg/dl Problem Qualifiers (1) Decubitus ulcer of left buttock: Pressure ulcer stage: stage 2 Qualified Codes: L89.322 - Pressure ulcer of left buttock, stage 2
[2016-12-10] MEDS: ALBUT/IPRATROP 3MG/0.5MG NEB 3 ML VIAL INH SCH ×4 (07:50→20:30)
[2016-12-10] MEDS ORDERED: POTASSIUM PHOSPHATE INJ 24 MMOL in SODIUM CHLORIDE 0.9% 500ML 500 ML IV ONE (08:00)
[2016-12-10] MEDS ORDERED: ENOXAPARIN 60 MG/0.6 ML SYR SQ SCH (08:15)
[2016-12-10] MEDS: LOPERAMIDE HCL 2 MG CAP PO SCH ×2 (08:31→21:18)
[2016-12-10] MEDS: FERROUS GLUCONATE 324 MG TAB PO SCH ×2 (08:31→16:12)
[2016-12-10] MEDS: GUAIFENESIN 200 MG TAB PO SCH ×3 (08:32→21:19)
[2016-12-10] MEDS: AMIODARONE 200 MG TAB PO SCH ×2 (08:32→21:18)
[2016-12-10] MEDS ORDERED: PANTOprazole SOD 40 MG TAB PO SCH (09:00)
[2016-12-10] MEDS ORDERED: INSULIN GLARGINE SOLOSTAR 100 UNITS/ML 3 ML PEN SC SCH (09:00)
[2016-12-10] MEDS: METHYLPREDNISOLONE IV 40 MG in SYRINGE 0 ML IV SCH ×3 (09:23→21:17)
--- NOTE | 2016-12-10 09:28 | Hospitalist Progress Note ---
Hospitalist Progress Note Date of Service December 10, 2016. (Jennifer Alarcon PA-C) Subjective Pt evaluation today including: conversation w/ patient, physical exam, chart review, lab review, review of studies PO Intake: NPO Voiding: hopson catheter in place The patient was seen and examined this morning. 2 guards are present with him at bedside. The patient is tired and weak, he does not talk much and when he does his speech is somewhat garbled. He also has a nonrebreather on which makes him difficult to hear, with the mask off his O2 sats drop into the low 80s. He is slightly tachycardic at bedside. Pt reports cough is ongoing and without sputum. The patient denies acute chest pain, but does have a little incisional pain where the pleurex catheter was placed last night. He is also complaining of a left upper quadrant pain with palpation. He denies fevers and sweats, but does feel cold. He has some pain in the right lower extremity. Pts stump on the left is not painful currently. Constitutional: + fatigue, No chills, No fever, No sweats Eyes: No diplopia, No redness ENT: No nasal symptoms, No sore throat Respiratory: + cough, + shortness of breath, + wheezing Cardiovascular: No chest pain, No palpitations Abdomen: + pain, No constipation, No diarrhea, No nausea, No vomiting Musculoskeletal: No joint pain, No muscle pain Male : + problem reported ( ) Neurologic: No numbness/tingling, No weakness Endo: + fatigue Skin: + problem reported (sacral ulcer) (Jennifer Alarcon PA-C) Objective Vital Signs Date Time Temp Pulse Resp B/P Pulse Ox O2 Delivery O2 Flow Rate FiO2 12/10/16 07:50 85 22 94 Diffusion Mask 6.0 12/10/16 06:00 87 26 106/59 90 106/53 12/10/16 05:30 87 21 100/52 89 98/47 12/10/16 05:00 86 20 99/57 89 100/47 12/10/16 04:30 85 19 106/55 90 98/47 12/10/16 04:00 Nasal Cannula 6.0 12/10/16 04:00 36.5 86 26 115/69 89 104/51 12/10/16 03:31 85 21 112/75 94 113/52 12/10/16 03:30 85 21 92 115/54 12/10/16 03:00 86 27 117/66 93 108/50 12/10/16 02:30 87 23 105/69 92 102/49 12/10/16 02:02 87 24 114/68 91 105/50 12/10/16 01:30 86 22 115/67 92 110/53 12/10/16 01:00 86 21 102/67 91 104/51 12/10/16 00:30 86 20 116/66 91 104/52 12/10/16 00:00 36.6 86 20 93/61 90 98/50 12/09/16 23:59 Nasal Cannula 6.0 12/09/16 23:45 88 26 121/69 91 110/53 12/09/16 23:31 86 22 106/56 90 94/46 12/09/16 23:30 86 18 91 101/49 12/09/16 23:15 86 19 99/64 90 98/48 12/09/16 23:00 85 17 93/58 91 98/42 12/09/16 23:00 85 17 93/58 91 98/42 12/09/16 22:45 84 19 91/80 91 94/47 12/09/16 22:31 85 19 96/51 88 92/46 12/09/16 22:16 84 21 95/56 91 100/46 12/09/16 22:03 85 18 99/55 89 99/47 12/09/16 21:55 86 19 82/54 91 99/47 12/09/16 21:30 85 17 86/61 92 96/47 12/09/16 21:15 84 18 89/50 92 97/47 12/09/16 21:00 86 18 84/47 92 97/45 12/09/16 20:45 87 19 90/57 91 106/47 12/09/16 20:43 89 19 96/50 89 115/49 12/09/16 20:28 88 20 97/57 92 107/44 12/09/16 20:00 36.8 88 19 82/60 93 100/44 12/09/16 20:00 92 Nasal Cannula 6.0 12/09/16 19:54 88 21 78/50 92 97/43 12/09/16 19:46 88 20 78/54 92 88/40 12/09/16 19:37 88 25 92/54 92 99/44 12/09/16 19:31 88 25 111/39 88 101/45 12/09/16 19:26 85 20 91 Nasal Cannula 7.0 12/09/16 19:15 85 23 82/50 91 111/61 12/09/16 17:03 36.6 91 26 84/48 87 Nasal Cannula 6.0 12/09/16 16:23 36.7 82 19 91/51 91 12/09/16 16:00 91/51 91 Nasal Cannula 4.0 12/09/16 15:51 82 19 88 12/09/16 15:46 79/46 12/09/16 15:21 84 26 88 12/09/16 14:46 57/37 95 Nasal Cannula 4.0 12/09/16 14:30 88/54 12/09/16 14:29 87 26 95 12/09/16 14:15 77/45 12/09/16 14:00 78/43 12/09/16 13:59 85 21 96 12/09/16 13:54 86 22 100 Nasal Cannula 4.0 12/09/16 13:45 73/52 12/09/16 13:39 84 24 95 Nebulizer 12/09/16 13:30 79/54 12/09/16 13:24 84 20 93 Nebulizer 12/09/16 13:15 78/49 12/09/16 13:09 77 19 94 Nebulizer 12/09/16 13:06 80 18 74/49 97 Nebulizer 12/09/16 13:04 79 25 74/49 91 Nebulizer 12/09/16 12:54 78 24 100 Nasal Cannula 4.0 12/09/16 12:49 80 26 71 12/09/16 12:34 78 12/09/16 12:34 99 27 87 12/09/16 12:32 93 Nasal Cannula 3.0 12/09/16 12:32 36.7 80 12 62/39 91 Nasal Cannula 3.0 12/09/16 12:32 91 Nasal Cannula 3.0 12/09/16 12:23 62/39 (Jennifer Alarcon, SUZETTE) Physical Exam General Appearance: + mild distress, + cachetic, + thin, + pertinent finding ( frail and ill appearing) Eyes: normal inspection, PERRL, + pertinent finding (wearing glasses) ENT: hearing grossly normal Neck: supple, no JVD Respiratory/Chest: + pertinent finding (On nonrebreather mask, + coarse breath sounds throughout with +expiratory wheeze, diminished breath sounds left base, pleurex catheter left chest wall.) Cardiovascular: no murmur, + tachycardia (mild) Abdomen: soft, no organomegaly, + pertinent finding (hypoactive bowel sounds, nondistended, + tenderness with palpation in the LUQ, no rebound or guarding) Extremities: no pedal edema, + calf tenderness (right), + pertinent finding ( Left AKA with avelino in place, wound intact, no surrounding erythema or edema. LLE with calf tenderness with palpaiton, sensation diminished to light touch in distal extremities. ) Neurologic/Psychiatric: alert, oriented x 3 Skin: normal color, warm/dry, + pertinent finding (Left sacral ulceration) (Jennifer Alarcon, SUZETTE) Laboratory Results Last 24 Hours Test 12/09/16 12:30 12/09/16 12:47 12/09/16 12:59 12/09/16 17:55 White Blood Count 14.17 K/uL Red Blood Count 3.85 M/uL Hemoglobin 11.0 g/dL Hematocrit 35.3 % Mean Corpuscular Volume 91.7 fL Mean Corpuscular Hemoglobin 28.6 pg Mean Corpuscular Hemoglobin Concent 31.2 g/dl Platelet Count 402 K/uL Mean Platelet Volume 10.1 fL Neutrophils (%) (Auto) 89.4 % Lymphocytes (%) (Auto) 5.5 % Monocytes (%) (Auto) 4.0 % Eosinophils (%) (Auto) 0.0 % Basophils (%) (Auto) 0.1 % Neutrophils # (Auto) 12.67 K/uL Lymphocytes # (Auto) 0.78 K/uL Monocytes # (Auto) 0.56 K/uL Eosinophils # (Auto) 0.00 K/uL Basophils # (Auto) 0.02 K/uL RDW Standard Deviation 58.5 fL RDW Coefficient of Variation 18.2 % Immature Granulocyte % (Auto) 1.0 % Immature Granulocyte # (Auto) 0.14 K/uL Nucleated RBC Absolute Count (auto) 0.10 K/uL Nucleated Red Blood Cells % 0.7 % Polychromasia 1+ Prothrombin Time 15.1 SECONDS Prothromb Time International Ratio 1.4 Activated Partial Thromboplast Time 41.9 SECONDS Partial Thromboplastin Ratio 1.6 Sodium Level 137 mmol/L Potassium Level 3.5 mmol/L Chloride Level 100 mmol/L Carbon Dioxide Level 27 mmol/L Anion Gap 10.0 mmol/L Blood Urea Nitrogen 50 mg/dl Creatinine 1.50 mg/dl Est Creatinine Clear Calc Drug Dose 31.0 ml/min Estimated GFR () 54.3 Estimated GFR (Non- 46.8 BUN/Creatinine Ratio 33.6 Random Glucose 68 mg/dl Calcium Level 7.5 mg/dl Total Bilirubin 0.4 mg/dl Direct Bilirubin 0.2 mg/dl Aspartate Amino Transf (AST/SGOT) 390 U/L Alanine Aminotransferase (ALT/SGPT) 384 U/L Alkaline Phosphatase 354 U/L Total Creatine Kinase 257 U/L Creatine Kinase MB 4.1 ng/ml Creatine Kinase MB Ratio 1.6 Troponin I 1.400 ng/ml Total Protein 5.3 gm/dl Albumin 1.8 gm/dl Lipase 59 U/L Bedside Troponin I 1.430 ng/ml [id number] Natriuretic Peptide > 93380 pg/ml Bedside Lactic Acid Venous 2.44 mmol/L Lactic Acid Level 1.6 mmol/L Procalcitonin 0.58 ng/ml Test 12/09/16 18:23 12/09/16 18:30 12/09/16 20:25 12/09/16 21:15 Blood Gas Sample Site Heel Stick Bedside Blood Gas pH (LAB) 7.45 Bedside Blood Gas pCO2 (LAB) 33 mmHg Bedside Blood Gas pO2 (LAB) 109 mmHg Bedside Blood Gas HCO3 (LAB) 23 meq/L Bedside Blood Gas Total CO2 24 mEq/l Bedside Blood Gas Base Excess (LAB) -1.0 meq/L Bedside Blood Gas O2 Saturation 99.0 % Tio Test NA Oxygen Delivery Device Cannula Pleural Fluid Source LEFT LUNG Pleural Fluid Color PALE YELLOW Pleural Fluid Appearance CLEAR Pleural Fluid WBC 109 /uL Pleural Fluid RBC < 3000 /uL Pleural Fluid pH 7.45 Pleural Fluid Polynuclear WBCs % 62.3 % Pleural Fluid Mononuclear WBCs % 37.7 % Urine Color YELLOW Urine Appearance CLEAR Urine pH 5.5 Urine Specific [place] 1.018 Urine Protein NEG Urine Glucose (UA) NEG Urine Ketones TRACE Urine Occult Blood NEG Urine Nitrite NEG Urine Bilirubin NEG Urine Urobilinogen NEG Urine Leukocyte Esterase NEG Urine WBC (Auto) 1-5 /hpf Urine RBC (Auto) 0-4 /hpf Urine Hyaline Casts (Auto) 1-5 /lpf Urine Epithelial Cells (Auto) 10-20 /lpf Urine Bacteria (Auto) NEG Bedside Glucose (other) 195 mg/dl Test 12/09/16 21:55 12/09/16 22:21 12/10/16 01:49 12/10/16 05:12 Potassium Level 3.0 mmol/L Creatine Kinase MB 3.6 ng/ml Creatine Kinase MB Ratio Troponin I 1.030 ng/ml Bedside Glucose (other) 184 mg/dl 149 mg/dl Lactate Dehydrogenase 357 U/L Test 12/10/16 05:45 12/10/16 05:53 12/10/16 07:57 12/10/16 07:59 White Blood Count 13.73 K/uL Red Blood Count 3.32 M/uL Hemoglobin 9.3 g/dL Hematocrit 29.9 % Mean Corpuscular Volume 90.1 fL Mean Corpuscular Hemoglobin 28.0 pg Mean Corpuscular Hemoglobin Concent 31.1 g/dl Platelet Count 318 K/uL Mean Platelet Volume 9.4 fL Neutrophils (%) (Auto) 93.3 % Lymphocytes (%) (Auto) 1.2 % Monocytes (%) (Auto) 4.7 % Eosinophils (%) (Auto) 0.0 % Basophils (%) (Auto) 0.1 % Neutrophils # (Auto) 12.80 K/uL Lymphocytes # (Auto) 0.17 K/uL Monocytes # (Auto) 0.65 K/uL Eosinophils # (Auto) 0.00 K/uL Basophils # (Auto) 0.01 K/uL RDW Standard Deviation 56.7 fL RDW Coefficient of Variation 18.0 % Immature Granulocyte % (Auto) 0.7 % Immature Granulocyte # (Auto) 0.10 K/uL Nucleated RBC Absolute Count (auto) 0.10 K/uL Nucleated Red Blood Cells % 0.7 % Prothrombin Time 12.7 SECONDS Prothromb Time International Ratio 1.2 Activated Partial Thromboplast Time 36.8 SECONDS Partial Thromboplastin Ratio 1.4 Sodium Level 137 mmol/L Potassium Level 3.5 mmol/L Chloride Level 101 mmol/L Carbon Dioxide Level 27 mmol/L Anion Gap 9.0 mmol/L Blood Urea Nitrogen 20 mg/dl Creatinine 0.64 mg/dl Est Creatinine Clear Calc Drug Dose 75.8 ml/min Estimated GFR () 115.8 Estimated GFR (Non- 99.9 BUN/Creatinine Ratio 31.7 Random Glucose 200 mg/dl Lactic Acid Level 1.2 mmol/L Calcium Level 7.5 mg/dl Phosphorus Level 1.5 mg/dl Magnesium Level 2.1 mg/dl Total Bilirubin 0.4 mg/dl Direct Bilirubin 0.2 mg/dl Aspartate Amino Transf (AST/SGOT) 177 U/L Alanine Aminotransferase (ALT/SGPT) 262 U/L Alkaline Phosphatase 239 U/L Creatine Kinase MB 2.6 ng/ml Creatine Kinase MB Ratio Troponin I 1.010 ng/ml Total Protein 4.4 gm/dl Albumin 1.5 gm/dl Procalcitonin 0.37 ng/ml Bedside Glucose (other) 208 mg/dl (Jennifer Alarcon, SUZETTE) Assessment and Plan 71 yo M with extensive PMHx including Atrial fib and flutter s/p IVC placement, COPD, necrotic pneumonia, hyposic respiratory failure, Hx of PE, PVD, Hypothyroidism, decubitus ulcer of the left ischium and sacrum, Hx of left AKA, anal carcinoma in 2004 who presented in septic shock secondary to obstructive pneumonia. Acute hypoxia respiratory failure Sepsis secondary to obstructive/necrotizing pneumonia - ICU - Maintained on norepinephrine with MAP>65 - Continue fluids with Normosol @ 100mL/hr - Also with hx of COPD and severe emphysema so O2 sats titrated to 88-92% - ID consulted- for now will continue on linezolid and zosyn (day #2), received 1 dose of vanc - BCx in process, follow - WBC 13.6 with left shift - Supportive treatment with incentive spirometry, carlos- pt does not ambulated due to recent left AKA and health, he is too weak/fatigued. - CXR repeated this morning: IMPRESSION: Persistent bilateral pulmonary airspace opacities. Underlying emphysema. - CT chest 12/09 initially showed: Moderate left pleural effusion with extensive left lower lobe airspace opacity which favors pneumonia. Apparent 3.6 x 3 cm focus of fluid within the central aspect of this consolidated lung raises the possibility of a necrotizing pneumonia/abscess. Left sided pleural effusion - Pleurex catheter placed by Dr. Jaramillo on 12/09 - plans for all pleural fluid to be sent to lab for cytology as there is concern for malignant effusion with hx of anal carcinoma in 2004- appreciate thoracic med recs - Plan for CT chest w/o contrast later today - Studies pending including culture, fungal, and AFB Right Lower extremity Pain - Will order doppler U/S to r/o DVT: pt was on therapeutic anticoagulation prior to admit, hx of recent AKA surgery in September and October, immobility, cancer history, also tachycardic and respiratory distress although this is most likely from sepsis as above. Acute on Chronic COPD - Solu-medrol 40 mg TID; taper down per clinical status - still with some wheezing and coarse breath sounds today so would continue this regimen for now. - DuoNebs QID an Q2H prn Acute Transaminitis secondary to shock liver - Follow LFTs, trending downward - Await hepatitis panel EDDIE - Resolved with aggressive fluid resuscitation with Cr. back down to 0.64 Elevated Glucose - Continue on Lantus 5 U BID with steriods along with ISS, hypoglycemic ppx on board - Hgb A1C= 6.1 in September 2016, no need to repeat. Hypophosphatemia - Decreased at 1.5, replaced this morning Elevated Troponin - Likely secondary to demand ischemia associated with septic shock - trended downward to 1.030 - Continue to follow x 1 more set Atrial Fibrillation - Cont amiodarone 200 mcg PO BID Hypothyroidism: Cont levothyroxine 225 mcg daily Ileus: - CT abd/pelvis showing dilated bowel loops likely determinate of ileus, will keep NPO for now. - Pt with c/o LUQ pain, monitor with abdominal checks, abd nondistended and soft today Sacral decubitus ulceration - Turn and repo Q2H - Wound care consultation - Possible recurrence of malignancy with hx of anal carcinoma Lines: Right IJ catheter Left pleurex catheter IV x 2 sites GI ppx: Pantoprazole 40 mg IV BID DVT ppx: Lovenox 60 mg subq Q12H CODE STATUS: FULL CODE Disposition: From [facility], return once medically stable. (Jennifer Alarcon, SUZETTE)
--- NOTE | 2016-12-10 09:52 | Pharmacy Progress Note ---
Glycemic Control Intl Consult Date of Service December 10, 2016. Scope Glycemic Pharmacist consulted by Audi LAN on 12/09/16 for glycemic control and to write orders per [facility] inpatient glycemic control protocol Objective Weight (Kilograms): 49.200 Accuchecks BSG (last 24hrs): Test 12/09/16 12:30 12/10/16 05:45 Random Glucose 68 mg/dl (70-99) 200 mg/dl (70-99) Laboratory Data (last 24hrs) Test 12/09/16 12:30 12/09/16 21:55 12/10/16 05:45 Anion Gap 10.0 mmol/L 9.0 mmol/L BUN/Creatinine Ratio 33.6 31.7 Blood Urea Nitrogen 50 mg/dl 20 mg/dl Creatinine 1.50 mg/dl 0.64 mg/dl Potassium Level 3.5 mmol/L 3.0 mmol/L 3.5 mmol/L Sodium Level 137 mmol/L 137 mmol/L White Blood Count 14.17 K/uL 13.73 K/uL Red Blood Count 3.85 M/uL 3.32 M/uL Hemoglobin 11.0 g/dL 9.3 g/dL Hematocrit 35.3 % 29.9 % Mean Corpuscular Volume 91.7 fL 90.1 fL Mean Corpuscular Hemoglobin 28.6 pg 28.0 pg Mean Corpuscular Hemoglobin Concent 31.2 g/dl 31.1 g/dl Platelet Count 402 K/uL 318 K/uL Mean Platelet Volume 10.1 fL 9.4 fL Neutrophils (%) (Auto) 89.4 % 93.3 % Lymphocytes (%) (Auto) 5.5 % 1.2 % Monocytes (%) (Auto) 4.0 % 4.7 % Eosinophils (%) (Auto) 0.0 % 0.0 % Basophils (%) (Auto) 0.1 % 0.1 % Neutrophils # (Auto) 12.67 K/uL 12.80 K/uL Lymphocytes # (Auto) 0.78 K/uL 0.17 K/uL Monocytes # (Auto) 0.56 K/uL 0.65 K/uL Eosinophils # (Auto) 0.00 K/uL 0.00 K/uL Basophils # (Auto) 0.02 K/uL 0.01 K/uL HbA1c 6.1% 10/22/16 Recent Pertinent Medications Outpatient Anti-diabetic Regimen: * No prior dx of DM * A1c = 6.1 % 10/22/16, consistent w/ "pre-diabetes" The patient is currently receiving: * Basal insulin: Lantus -- units every -- hours * Correctional Insulin: Novolog Correction per scale ACHS and at 0200 Goal Range: Low 140 mg/dL - High 180 mg/dL Correction Factor: 35 mg/dL/unit * Prandial insulin: Per carb ratio of 1 unit per 11 grams CHO consumed * Oral Agents: None currently Risk Factors for Insulin Resistance: * Steroids: Solu-Medrol 125mg x 1 yesterday, now ordered 40mg IV Q 8 hours * Infection: sepsis/PNX/COPD exacerbation, nonspecific colitis; receiving Zyvox IV + Zosyn * Pressors: Norepi @ 0.1mcg/kg/min * IVF: Normosol R @ 100cc/hr * Diet: NPO * Mechanical Ventilation: No Assessment & Plan ASSESSMENT: 12/10/16 * Pre-diabetic patient admitted yesterday with hypotension, hypoxia, presumed sepsis - likely source pulmonary (PNX, COPD exac) * He did require fluid resuscitation as well as pressor support and is receiving high dose IV corticosteroids * BSGs did climb overnight, however no higher than 208 * He is currently ordered Novolog correction and prandial coverage only, the current BSG elevations are reflective of fasting hyperglycemia - will add basal insulin * The glycemic service has followed this patient on prior admission - and usually he is fairly insulin sensitive, but has required an insulin drip while ventilated, infected and on steroids -- even so, while on the insulin drip his total daily requirements were still less than 20 units. * We will have to be vigilant for improving insulin sensitivity as steroids are tapered PLAN FOR INPATIENT GLYCEMIC CONTROL: * Starting Lantus 5 units SQ BID - hold if BSG less than 120 * Continuing correction factor of 35 mg/dl/unit * Changing carb ratio to 1 unit per 15 grams CHO consumed * Continuing goal range of Low 140 mg/dL - High 180 mg/dL * Reassess insulin doses each time steroid dose is changed. * Please note that the plan above was derived based on current level of insulin resistance and hospital stress. These recommendations are appropriate for inpatient admission only. Plan of care upon discharge will need to be reassessed to avoid potential outpatient hypo/hyperglycemia. Thank you.
--- NOTE | 2016-12-10 09:58 | Medical Consult ---
Consultation Date of Consultation: December 10, 2016. Attending Physician: Alber Robbins MD, PhD Reason for Consultation: Sepsis, necrotic PNA History of Present Illness 71-year-old male prisoner, with multiple medical comorbidities including peripheral arterial disease status post left AKA, pulmonary emboli requiring IVC filter placement, prior history of anal carcinoma, COPD, who was seen in the emergency room December 06 with shortness of breath thought to be secondary to exacerbation of COPD. Patient was sent back to the [facility], but over the last several days developed worsening cough and shortness of breath with audible gurgling noted by snf guards. He was brought back to the hospital where CT scan of the chest, read by me, showed large left pleural effusion, with consolidation of the lower lobe with area of probable central necrosis. He has undergone thoracentesis and pleural catheter placement, with finding of transudative effusion. Cultures have been negative to date. Patient currently being treated with combination of Zyvox and Zosyn. Cytology of pleural fluid is pending. Past Medical/Surgical History Medical Problems: (1) Atrial flutter with rapid ventricular response Status: Acute (2) Chest pain Status: Acute (3) COPD (chronic obstructive pulmonary disease) Status: Chronic (4) COPD with exacerbation Status: Acute (5) Dizzy Status: Acute (6) Hypotension Status: Acute (7) Hypothyroid Status: Acute (8) Hypoxia Status: Acute (9) Left chest pressure Status: Acute (10) PNA (pneumonia) Status: Acute (11) Pulmonary embolism Status: Acute (12) Rapid atrial fibrillation Status: Acute (13) Sepsis Status: Acute Medical Problems: (1) Acute kidney injury (2) Afib (3) Anticoagulation goal of INR 2 to 3 (4) Atrial fibrillation and flutter (5) Atrial flutter with rapid ventricular response (6) Atrial flutter, chronic (7) COPD (chronic obstructive pulmonary disease) (8) Decubital ulcer (9) Decubitus ulcer of left buttock (10) 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, extremities (11) Hemoptysis (12) History of anal cancer (13) History of left above knee amputation (14) History of pulmonary embolism (15) Hypothyroidism (16) Necrotic pneumonia (17) Peripheral arterial disease (18) Presence of IVC filter (19) Protein calorie malnutrition (20) PVD (peripheral vascular disease) Family History No pertinent family history Social History Smoking Status: Former Smoker Smokeless Tobacco Use: No Alcohol Use: none Drug Use: none Marital Status: single Housing Status: other ([facility]) Occupation Status: other Allergies Coded Allergies: Aspirin (Verified Allergy, Unknown, 12/06/16) Procaine (Verified Allergy, Unknown, 12/06/16) Rosuvastatin (Verified Allergy, Unknown, UNKNOWN, 12/06/16) Current Inpatient Medications Current Inpatient Medications Medications (Trade) Dose Ordered Sig/Malcolm Route Start Time Stop Time Status Last Admin Dose Admin Lorazepam (Ativan Tab) 1 mg Q6H PRN PO 12/09/16 14:45 01/08/17 14:44 Nitroglycerin (Nitrostat Tab) 0.4 mg UD PRN SL 12/09/16 14:45 01/08/17 14:44 Al Hydrox/Mg Hydrox/Simethicone (Maalox Max Susp) 15 ml Q4H PRN PO 12/09/16 14:45 01/08/17 14:44 Magnesium Hydroxide (Milk Of Magnesia Susp) 30 ml Q12H PRN PO 12/09/16 14:45 01/08/17 14:44 Ondansetron HCl (Zofran Inj) 4 mg Q6H PRN IV 12/09/16 14:45 01/08/17 14:44 Albuterol/ Ipratropium 3 ml 3 ml QIDR INH 12/09/16 16:00 01/08/17 15:59 12/10/16 07:50 3 ML Piperacillin Sod/ Tazobactam Sod/ Dextrose (Zosyn Iv/D5 100ml) 115 ml @ 28.75 mls/ hr Q8H IV 12/09/16 18:00 12/16/16 09:59 12/10/16 09:30 28.75 MLS/HR Albuterol (Ventolin Hfa Inhaler) 2 puffs QID PRN INH 12/09/16 14:45 01/08/17 14:44 Amiodarone HCl (Cordarone Tab) 200 mg BID PO 12/09/16 21:00 01/08/17 20:59 12/10/16 08:32 200 MG Levothyroxine Sodium (Synthroid Tab) 225 mcg DAILYBB PO 12/10/16 06:00 01/09/17 06:59 12/10/16 05:38 225 MCG Loperamide HCl (Imodium Cap) 2 mg BID PO 12/09/16 21:00 01/08/17 20:59 12/10/16 08:31 2 MG Metoclopramide HCl (Reglan Tab) 5 mg AC PO 12/09/16 16:00 01/08/17 15:59 12/10/16 06:30 5 MG Nortriptyline HCl (Pamelor Cap) 10 mg HS PO 12/09/16 21:00 01/08/17 20:59 12/09/16 20:51 10 MG Ondansetron HCl (Zofran Tab) 8 mg TID PRN PO 12/09/16 14:45 01/08/17 14:44 Miscellaneous Information (Order Awaiting Action) 1 ea QS N/A 12/10/16 00:00 01/09/17 00:00 Future Hold Miscellaneous Information (Order Awaiting Action) 1 ea QS N/A 12/10/16 00:00 01/09/17 00:00 Future Hold Docusate Sodium (coLACE CAP) 200 mg DAILY PRN PO 12/09/16 17:00 01/08/17 16:59 Ferrous Gluconate (Ferrous Gluconate Tab) 324 mg BIDM PO 12/09/16 17:30 01/08/17 17:29 12/10/16 08:31 324 MG Guaifenesin (Organidin Nr Tab) 800 mg TID PO 12/09/16 21:00 01/08/17 20:59 12/10/16 08:32 800 MG Hydrocortisone (Hydrocortisone 2.5% Crm) 1 appln TID PRN EXT 12/09/16 17:00 01/08/17 16:59 Multi-Ingredient Ointment 1 gm 1 gm PRN PRN EXT 12/09/16 17:15 01/08/17 17:14 Linezolid/Prmx (Zyvox / D5W/ Premixed D5W) 300 ml @ 300 mls/hr Q12@0400,1600 IV 12/09/16 17:00 12/16/16 15:59 12/10/16 04:14 300 MLS/HR Piperacillin Sod/ Tazobactam Sod 1 ea 1 ea UD PRN N/A 12/09/16 16:45 01/08/17 16:44 Norepinephrine Bitartrate 8 mg/ Dextrose 508 ml @ 0 mls/hr Q0M PRN IV 12/09/16 17:30 01/08/17 17:29 12/09/16 18:58 8 MLS/HR Parenteral Electrolyte Solution 1,000 ml @ 100 mls/hr Q10H IV 12/09/16 17:30 01/08/17 17:29 12/10/16 01:34 150 MLS/HR Pantoprazole Sodium/Syringe (Protonix Inj/ Syringe) 10 ml @ 5 mls/min DAILY@1100 IV 12/10/16 11:00 01/09/17 10:59 Miscellaneous Information (Consult Glycemic Management Pharmacy) 1 ea UD PRN N/A 12/09/16 21:45 01/08/17 21:44 Insulin Aspart (novoLOG ASPART) SLIDING SCALE ACHS SC 12/09/16 22:00 01/08/17 21:59 12/10/16 06:36 1 UNITS Glucose (Glucose 40% Gel) 15-30 GRAMS 15 GRAMS... UD PRN PO 12/09/16 21:45 01/08/17 21:44 Glucose (Glucose Chew Tab) 4-8 Tablets 4 Tabl... UD PRN PO 12/09/16 21:45 01/08/17 21:44 Dextrose (Dextrose 50% 50ML Syringe) 25-50ML OF 50% DW IV FOR... UD PRN IV 12/09/16 21:45 01/08/17 21:44 Glucagon (Glucagon Inj) 1 mg UD PRN SQ 12/09/16 21:45 01/08/17 21:44 Insulin Aspart (novoLOG ASPART) SLIDING SCALE 0200 SC 12/10/16 02:00 01/09/17 01:59 Heparin Sodium (Porcine) 5 ml 5 ml PRN PRN FLUSH 12/10/16 00:45 01/09/17 00:44 Potassium Phosphate 24 mmol/ Sodium Chloride 508 ml @ 88 mls/hr TODAY@0800 ONCE IV 12/10/16 08:00 12/10/16 13:46 12/10/16 08:31 88 MLS/HR Methylprednisolone Sodium Succinate/ Syringe (Solu-Medrol IV/ Syringe) 0.64 ml @ 1.5 mls/min TID IV 12/10/16 09:00 01/09/17 08:59 12/10/16 09:23 1.5 MLS/MIN Enoxaparin Sodium (Lovenox Inj) 60 mg Q12H SQ 12/10/16 08:15 01/09/17 08:14 Future Hold Insulin Glargine (Lantus Solostar Pen) 5 unit BID SC 12/10/16 09:00 01/09/17 08:59 12/10/16 09:29 5 UNIT Review of Systems Constitutional: + weakness, + weight loss, No fever Eyes: No problem reported ENT: No problem reported Respiratory: + cough, + shortness of breath Cardiovascular: + chest pain Abdomen: + diarrhea Musculoskeletal: No problem reported Genitourinary - Male: No problem reported Neurologic: No problem reported Psychiatric: No problem reported Endocrine: No problem reported Hematologic / Lymphatic: No problem reported Integumentary: No problem reported Allergic / Immunologic: No problem reported Physical Exam Date Time Temp Pulse Resp B/P Pulse Ox O2 Delivery O2 Flow Rate FiO2 12/10/16 08:00 Nasal Cannula 6.0 12/10/16 07:50 85 22 94 Diffusion Mask 6.0 12/10/16 06:00 87 26 106/59 90 106/53 12/10/16 05:30 87 21 100/52 89 98/47 12/10/16 05:00 86 20 99/57 89 100/47 12/10/16 04:30 85 19 106/55 90 98/47 12/10/16 04:00 Nasal Cannula 6.0 12/10/16 04:00 36.5 86 26 115/69 89 104/51 12/10/16 03:31 85 21 112/75 94 113/52 12/10/16 03:30 85 21 92 115/54 12/10/16 03:00 86 27 117/66 93 108/50 12/10/16 02:30 87 23 105/69 92 102/49 12/10/16 02:02 87 24 114/68 91 105/50 12/10/16 01:30 86 22 115/67 92 110/53 12/10/16 01:00 86 21 102/67 91 104/51 12/10/16 00:30 86 20 116/66 91 104/52 12/10/16 00:00 36.6 86 20 93/61 90 98/50 12/09/16 23:59 Nasal Cannula 6.0 12/09/16 23:45 88 26 121/69 91 110/53 12/09/16 23:31 86 22 106/56 90 94/46 12/09/16 23:30 86 18 91 101/49 12/09/16 23:15 86 19 99/64 90 98/48 12/09/16 23:00 85 17 93/58 91 98/42 12/09/16 23:00 85 17 93/58 91 98/42 12/09/16 22:45 84 19 91/80 91 94/47 12/09/16 22:31 85 19 96/51 88 92/46 12/09/16 22:16 84 21 95/56 91 100/46 12/09/16 22:03 85 18 99/55 89 99/47 12/09/16 21:55 86 19 82/54 91 99/47 12/09/16 21:30 85 17 86/61 92 96/47 12/09/16 21:15 84 18 89/50 92 97/47 12/09/16 21:00 86 18 84/47 92 97/45 12/09/16 20:45 87 19 90/57 91 106/47 12/09/16 20:43 89 19 96/50 89 115/49 12/09/16 20:28 88 20 97/57 92 107/44 12/09/16 20:00 36.8 88 19 82/60 93 100/44 12/09/16 20:00 92 Nasal Cannula 6.0 12/09/16 19:54 88 21 78/50 92 97/43 12/09/16 19:46 88 20 78/54 92 88/40 12/09/16 19:37 88 25 92/54 92 99/44 12/09/16 19:31 88 25 111/39 88 101/45 12/09/16 19:26 85 20 91 Nasal Cannula 7.0 12/09/16 19:15 85 23 82/50 91 111/61 12/09/16 17:03 36.6 91 26 84/48 87 Nasal Cannula 6.0 12/09/16 16:23 36.7 82 19 91/51 91 12/09/16 16:00 91/51 91 Nasal Cannula 4.0 12/09/16 15:51 82 19 88 12/09/16 15:46 79/46 12/09/16 15:21 84 26 88 12/09/16 14:46 57/37 95 Nasal Cannula 4.0 12/09/16 14:30 88/54 12/09/16 14:29 87 26 95 12/09/16 14:15 77/45 12/09/16 14:00 78/43 12/09/16 13:59 85 21 96 12/09/16 13:54 86 22 100 Nasal Cannula 4.0 12/09/16 13:45 73/52 12/09/16 13:39 84 24 95 Nebulizer 12/09/16 13:30 79/54 12/09/16 13:24 84 20 93 Nebulizer 12/09/16 13:15 78/49 12/09/16 13:09 77 19 94 Nebulizer 12/09/16 13:06 80 18 74/49 97 Nebulizer 12/09/16 13:04 79 25 74/49 91 Nebulizer 12/09/16 12:54 78 24 100 Nasal Cannula 4.0 12/09/16 12:49 80 26 71 12/09/16 12:34 78 12/09/16 12:34 99 27 87 12/09/16 12:32 93 Nasal Cannula 3.0 12/09/16 12:32 36.7 80 12 62/39 91 Nasal Cannula 3.0 12/09/16 12:32 91 Nasal Cannula 3.0 12/09/16 12:23 62/39 General Appearance: + mild distress, + cachetic Head: normocephalic, atraumatic Eyes: normal inspection, EOMI, sclerae normal ENT: normal ENT inspection, pharynx normal Neck: supple, no adenopathy, thyroid normal, trachea midline Respiratory/Chest: chest non-tender, + decreased breath sounds, + crackles, + wheezing Cardiovascular: regular rate, rhythm, no gallop, no murmur Abdomen/GI: normal bowel sounds, non tender, soft, no organomegaly Back: normal inspection, no CVA tenderness Extremities/Musculoskelatal: non-tender, + pertinent finding (left AKA) Neurologic/Psych: alert, oriented x 3 Skin: normal color, warm/dry, no rash, + pertinent finding (buttock ulcer, left AKA site clean) Lymphatic: no adenopathy Laboratory Results Date/Time Source Procedure Growth Status 12/09/16 21:55 Blood Fungal Smear - Final Resulted 12/09/16 21:55 Blood Fungal Culture Pending Resulted 12/09/16 12:50 Blood Blood Culture Pending Received 12/09/16 12:30 Blood Blood Culture Pending Received 12/09/16 15:30 Nasal MRSA DNA Surveillance Screen - Final Specimen Negative for MRSA by DNA Probe Complete 12/09/16 18:30 Pleural Fluid (Thoracentesis) Left Fungal Smear - Final Resulted 12/09/16 18:30 Pleural Fluid (Thoracentesis) Left Fungal Culture Pending Resulted 12/09/16 18:30 Pleural Fluid (Thoracentesis) Left Acid Fast Stain Pending Received 12/09/16 18:30 Pleural Fluid (Thoracentesis) Left Mycobacterial Culture Pending Received 12/09/16 18:30 Pleural Fluid (Thoracentesis) Left Gram Stain - Final Resulted 12/09/16 18:30 Pleural Fluid (Thoracentesis) Left Bacterial Culture Pending Resulted Last 24 Hours Test 12/09/16 12:30 12/09/16 12:47 12/09/16 12:59 12/09/16 17:55 White Blood Count 14.17 K/uL Red Blood Count 3.85 M/uL Hemoglobin 11.0 g/dL Hematocrit 35.3 % Mean Corpuscular Volume 91.7 fL Mean Corpuscular Hemoglobin 28.6 pg Mean Corpuscular Hemoglobin Concent 31.2 g/dl Platelet Count 402 K/uL Mean Platelet Volume 10.1 fL Neutrophils (%) (Auto) 89.4 % Lymphocytes (%) (Auto) 5.5 % Monocytes (%) (Auto) 4.0 % Eosinophils (%) (Auto) 0.0 % Basophils (%) (Auto) 0.1 % Neutrophils # (Auto) 12.67 K/uL Lymphocytes # (Auto) 0.78 K/uL Monocytes # (Auto) 0.56 K/uL Eosinophils # (Auto) 0.00 K/uL Basophils # (Auto) 0.02 K/uL RDW Standard Deviation 58.5 fL RDW Coefficient of Variation 18.2 % Immature Granulocyte % (Auto) 1.0 % Immature Granulocyte # (Auto) 0.14 K/uL Nucleated RBC Absolute Count (auto) 0.10 K/uL Nucleated Red Blood Cells % 0.7 % Polychromasia 1+ Prothrombin Time 15.1 SECONDS Prothromb Time International Ratio 1.4 Activated Partial Thromboplast Time 41.9 SECONDS Partial Thromboplastin Ratio 1.6 Sodium Level 137 mmol/L Potassium Level 3.5 mmol/L Chloride Level 100 mmol/L Carbon Dioxide Level 27 mmol/L Anion Gap 10.0 mmol/L Blood Urea Nitrogen 50 mg/dl Creatinine 1.50 mg/dl Est Creatinine Clear Calc Drug Dose 31.0 ml/min Estimated GFR () 54.3 Estimated GFR (Non- 46.8 BUN/Creatinine Ratio 33.6 Random Glucose 68 mg/dl Calcium Level 7.5 mg/dl Total Bilirubin 0.4 mg/dl Direct Bilirubin 0.2 mg/dl Aspartate Amino Transf (AST/SGOT) 390 U/L Alanine Aminotransferase (ALT/SGPT) 384 U/L Alkaline Phosphatase 354 U/L Total Creatine Kinase 257 U/L Creatine Kinase MB 4.1 ng/ml Creatine Kinase MB Ratio 1.6 Troponin I 1.400 ng/ml Total Protein 5.3 gm/dl Albumin 1.8 gm/dl Lipase 59 U/L Bedside Troponin I 1.430 ng/ml [id number] Natriuretic Peptide > 76149 pg/ml Bedside Lactic Acid Venous 2.44 mmol/L Lactic Acid Level 1.6 mmol/L Procalcitonin 0.58 ng/ml Test 12/09/16 18:23 12/09/16 18:30 12/09/16 20:25 12/09/16 21:15 Blood Gas Sample Site Heel Stick Bedside Blood Gas pH (LAB) 7.45 Bedside Blood Gas pCO2 (LAB) 33 mmHg Bedside Blood Gas pO2 (LAB) 109 mmHg Bedside Blood Gas HCO3 (LAB) 23 meq/L Bedside Blood Gas Total CO2 24 mEq/l Bedside Blood Gas Base Excess (LAB) -1.0 meq/L Bedside Blood Gas O2 Saturation 99.0 % Tio Test NA Oxygen Delivery Device Cannula Pleural Fluid Source LEFT LUNG Pleural Fluid Color PALE YELLOW Pleural Fluid Appearance CLEAR Pleural Fluid WBC 109 /uL Pleural Fluid RBC < 3000 /uL Pleural Fluid pH 7.45 Pleural Fluid Polynuclear WBCs % 62.3 % Pleural Fluid Mononuclear WBCs % 37.7 % Urine Color YELLOW Urine Appearance CLEAR Urine pH 5.5 Urine Specific Unity 1.018 Urine Protein NEG Urine Glucose (UA) NEG Urine Ketones TRACE Urine Occult Blood NEG Urine Nitrite NEG Urine Bilirubin NEG Urine Urobilinogen NEG Urine Leukocyte Esterase NEG Urine WBC (Auto) 1-5 /hpf Urine RBC (Auto) 0-4 /hpf Urine Hyaline Casts (Auto) 1-5 /lpf Urine Epithelial Cells (Auto) 10-20 /lpf Urine Bacteria (Auto) NEG Bedside Glucose (other) 195 mg/dl Test 12/09/16 21:55 12/09/16 22:21 12/10/16 01:49 12/10/16 05:12 Potassium Level 3.0 mmol/L Creatine Kinase MB 3.6 ng/ml Creatine Kinase MB Ratio Troponin I 1.030 ng/ml Bedside Glucose (other) 184 mg/dl 149 mg/dl Lactate Dehydrogenase 357 U/L Test 12/10/16 05:45 12/10/16 05:53 12/10/16 08:40 White Blood Count 13.73 K/uL Red Blood Count 3.32 M/uL Hemoglobin 9.3 g/dL Hematocrit 29.9 % Mean Corpuscular Volume 90.1 fL Mean Corpuscular Hemoglobin 28.0 pg Mean Corpuscular Hemoglobin Concent 31.1 g/dl Platelet Count 318 K/uL Mean Platelet Volume 9.4 fL Neutrophils (%) (Auto) 93.3 % Lymphocytes (%) (Auto) 1.2 % Monocytes (%) (Auto) 4.7 % Eosinophils (%) (Auto) 0.0 % Basophils (%) (Auto) 0.1 % Neutrophils # (Auto) 12.80 K/uL Lymphocytes # (Auto) 0.17 K/uL Monocytes # (Auto) 0.65 K/uL Eosinophils # (Auto) 0.00 K/uL Basophils # (Auto) 0.01 K/uL RDW Standard Deviation 56.7 fL RDW Coefficient of Variation 18.0 % Immature Granulocyte % (Auto) 0.7 % Immature Granulocyte # (Auto) 0.10 K/uL Nucleated RBC Absolute Count (auto) 0.10 K/uL Nucleated Red Blood Cells % 0.7 % Prothrombin Time 12.7 SECONDS Prothromb Time International Ratio 1.2 Activated Partial Thromboplast Time 36.8 SECONDS Partial Thromboplastin Ratio 1.4 Sodium Level 137 mmol/L Potassium Level 3.5 mmol/L Chloride Level 101 mmol/L Carbon Dioxide Level 27 mmol/L Anion Gap 9.0 mmol/L Blood Urea Nitrogen 20 mg/dl Creatinine 0.64 mg/dl Est Creatinine Clear Calc Drug Dose 75.8 ml/min Estimated GFR () 115.8 Estimated GFR (Non- 99.9 BUN/Creatinine Ratio 31.7 Random Glucose 200 mg/dl Lactic Acid Level 1.2 mmol/L Calcium Level 7.5 mg/dl Phosphorus Level 1.5 mg/dl Magnesium Level 2.1 mg/dl Total Bilirubin 0.4 mg/dl Direct Bilirubin 0.2 mg/dl Aspartate Amino Transf (AST/SGOT) 177 U/L Alanine Aminotransferase (ALT/SGPT) 262 U/L Alkaline Phosphatase 239 U/L Creatine Kinase MB 2.6 ng/ml Creatine Kinase MB Ratio Troponin I 1.010 ng/ml Total Protein 4.4 gm/dl Albumin 1.5 gm/dl Procalcitonin 0.37 ng/ml Bedside Glucose (other) 208 mg/dl Heparin Anti-Xa Act, Low Molec Wt 0.39 IU/ML Patient Name: MITA FLETCHER [id number] Unit Number: [id number] Dictated: 12/09/161507 Transcribed: 12/09/161507 Printed Date/Time: [~ rep prt dt]/[~ rep prt tm] [~ rep ct labl] - [~ rep ct ivnm] [facility] [place] [address] Dictated: 12/09/161507 Transcribed: 12/09/161507 Printed Date/Time: [~ rep prt dt]/[~ rep prt tm] [~ rep ct labl] - [~ rep ct ivnm] [~ rep ct add3]] CT OF THE CHEST WITHOUT IV CONTRAST CLINICAL HISTORY: Pneumonia. Hypoxia. COMPARISON STUDY: Chest CT October 18, 2016 and chest radiograph performed earlier today. TECHNIQUE: Axial images of the chest were obtained without IV contrast. Images were reviewed in the axial, sagittal, and coronal planes. IV contrast was not administered for this examination. FINDINGS: A portion of a left subclavian catheter is again noted. This is unchanged. The heart is mildly enlarged. There is no pericardial effusion. Evaluation of the chest is suboptimal given the lack of IV contrast. A moderately enlarged subcarinal lymph node measures 2 cm in short axis diameter. This is similar to CT of October 18, 2016. There is also suspected bilateral hilar lymphadenopathy which is difficult to assess on this unenhanced exam. Severe emphysema is noted. There is a moderate-sized left pleural effusion. This extensive left lower lobe airspace opacity. Within this airspace opacity, there is an apparent 3.6 x 3 cm area of fluid attenuation with a possible wall. There are also scattered airspace opacities throughout the remainder of the lungs. There is no pneumothorax. There is no cavitation. Bony thorax is unremarkable. Lungs are suboptimally assessed due to respiratory motion. The abdomen and pelvis will be reported separately. IMPRESSION: 1. Moderate left pleural effusion with extensive left lower lobe airspace opacity which favors pneumonia. Apparent 3.6 x 3 cm focus of fluid within the central aspect of this consolidated lung raises the possibility of a necrotizing pneumonia/abscess. 2. Multifocal airspace opacities throughout the remainder of the lungs suggestive of pneumonia. 3. Severe emphysema. 4. Nonspecific moderate mediastinal and bilateral hilar lymphadenopathy which is similar to CT of October 18, 2016. A follow-up chest CT in 3 months is recommended. Electronically signed by: Everton Merida M.D. 12/09/2016 3:20 PM Dictated Date/Time: 12/09/2016 3:08 PM The status of this report is Signed. Draft = Not yet reviewed or approved by Radiologist. Signed = Reviewed and approved by Radiologist. <AttendingPhy></AttendingPhy> <FamilyPhy>Frances DOHERTY</FamilyPhy> <PrimaryPhy> Frances DOHERTY</PrimaryPhy> <UnitNumber>[id number]</UnitNumber> <VisitNumber> [id number]</VisitNumber> <PatientName>MARY BETH FLETCHERY [id number]</PatientName> < DateOfBirth>1945</DateOfBirth> <Location>[facility]</Location> <ServiceDate>05/18</ServiceDate> <MNE>ESINDI</MNE> <OrderingPhy>Uzair Nesbitt D.O.</ OrderingPhy> <OrderingPhyMNE>f rep ord dr lazar</OrderingPhyMNE> <DictatingPhyMNE> f rep dict mnelisabeth</DictatingPhyMNE> <CCListMNE>f rep ct mne</CCListMNE> < AdmittingPhyMNE>f pt admit dr lazar</AdmittingPhyMNE> <AttendingPhyMNE>f pt attend dr lazar</AttendingPhyMNE> <ConsultingPhyMNE>f pt consult dr lazar</ConsultingPhyMNE> <FamilyPhyMNE>f pt fam dr lazar</FamilyPhyMNE> <OtherPhyMNE>f pt other dr lazar</OtherPhyMNE> < PrimaryPhyMNE>f pt prim care dr lazar</PrimaryPhyMNE> <ReferringPhyMNE>f pt referring dr lazar</ReferringPhyMNE> Assessment & Plan Sepsis likely from LLL pulmonary infection with post obstructive PNA, necrotic tumor, infarction from prior PE with secondary infection, and HCAP all possibilities. Current combination of linezolid and Zosyn appropriate pending cultures and cytology. Will discuss further management with all involved. Will follow.
--- NOTE | 2016-12-10 10:04 | ONCOLOGY CONSULTATION ---
DATE OF CONSULTATION: 12/10/2016 REASON FOR CONSULTATION: Possible metastatic carcinoma. HISTORY OF PRESENT ILLNESS: I have been asked to evaluate Mr. Job Crook who is presently a 71-year-old inmate, incarcerated at [facility]. According to clinical notes, this gentleman has multiple comorbid issues including atrial fibrillation, COPD, hypothyroidism, PAD status post left AKA and pulmonary embolism status post IVC filter, which was placed in September of 2016. According to clinical notes as the patient is not the best informant, he has been progressively short of breath. Job was evaluated in the Emergency Room back on 06 of December for the same symptoms and thought to be suffering from acute on chronic COPD exacerbation. He was subsequently treated and discharged back to custodial for continued management. He is oxygen dependent and despite supplementation, continues to be dyspneic and short of breath. According to custodial guards, the patient had been making gurgling sounds prompting them to seek medical assistance. According to the cardroom hand, Mr. Crook was diagnosed with anal cell carcinoma back in 2004 and effectively treated with chemoradiation. Mr. Crook recalls a diagnosis and treatment, but is not sure who the treating physician was at that time. He is definitely not established with [facility]; however, apparently was seen by Dr. Julio Murphy for hypercoagulability a few months prior. On radiographic studies, specifically CT scan of the chest reveals a moderate left pleural effusion with extensive left lower airspace opacity, which favors pneumonia. There was a 3.6 x 3 focus of fluid within the central aspect of this consolidated lung, raising the possibility of necrotizing pneumonia and abscess. Thoracic surgery has been consulted and a PleurX catheter placed. According to the cardroom hand, about 400 mL of fluid was extracted and preliminarily believed to be transudative. Because of his history of carcinoma, the primary service is requesting opinion regarding the possibility if these findings represent metastatic disease. PAST MEDICAL HISTORY: As previously stated in the HPI. MEDICATIONS: Prior to admission include Tudorza 1 puff inhaled b.i.d., amiodarone 200 mg p.o. b.i.d., Alvesco 1 puff p.o. b.i.d., diphenhydramine 50 mg p.o. q.a.m., Lovenox 60 mg subQ q. 12 hours, ferrous fumarate 324 mg p.o. b.i.d., guaifenesin 800 mg p.o. t.i.d., levothyroxine 225 mg p.o. q. daily, Imodium 2 mg p.o. b.i.d., Reglan 5 mg p.o. q.a.c., Lopressor 12.5 mg p.o. b.i.d., nortriptyline 10 mg p.o. at bedtime, omeprazole 40 mg p.o. q. daily, Bactrim-DS 800/160 one tablet p.o. b.i.d., and zinc oxide applied to affected area. ALLERGIES: ASPIRIN, PROCAINE, AND ROSUVASTATIN. SOCIAL HISTORY: Again, custodial inmate at [facility], nonsmoker, and nondrinker. FAMILY HISTORY: No pertinent family history. REVIEW OF SYSTEMS: Difficult to obtain. The patient is not terribly reliable or conversant. PHYSICAL EXAMINATION: GENERAL: He is a cachectic appearing 71-year-old gentleman in no acute distress. VITAL SIGNS: Temperature 36.5, pulse 86, respirations 26, and blood pressure 115/69. SKIN: Without rash or lesion. No appreciable ecchymosis or petechiae. HEENT: Head is atraumatic and normocephalic. Eyes: PERRLA, EOMI. Sclerae nonicteric. No conjunctival injection. Nares patent without rhinorrhea or discharge. Throat is clear. No buccal lesions or ulcerations noted. NECK: Supple. HEART: Regular rate and rhythm. LUNGS: Diminished breath sounds in the posterior bases bilaterally. ABDOMEN: Soft, nontender, and nondistended without palpable hepatosplenomegaly. Bowel sounds are active. EXTREMITIES: Again, status post left AKA. Right lower extremity without peripheral edema or clubbing. NEUROLOGIC: He is awake and alert. Cranial nerves, motor and sensory not tested. RADIOGRAPHIC DATA: CT findings as described in the HPI. LABORATORY DATA: WBC count 13,730, hemoglobin 9.3, and platelet count 318,000. IMPRESSION: 1. Suspected sepsis attributable to pneumonia. 2. Acute on chronic obstructive pulmonary disease exacerbation. 3. Elevated LFTs. 4. Atrial fibrillation. 5. Hypothyroidism. 6. Left-sided pleural effusion. 7. Remote history of anal carcinoma. PLAN: Mr. Crook was examined at bedside. First and foremost, his overall performance status is not optimal. He unfortunately suffers from multiple comorbid issues. A large pleural effusion was confirmed on a CT scan. Appropriately, thoracic surgery has been consulted and a PleurX catheter placed. According to the cardroom hand, 400 mL of fluid was extracted. Cytology is pending at the time of this dictation. Because of the remote diagnosis, I would suspect if the pleural fluid or necrotic mass are found to be cancerous, a new primary lesion is more likely. I have nothing further to add at this juncture. I will await cytology results and give formal recommendations at that time. In the event, this turns out to be neoplastic, his performance status may prove to be prohibitive for consideration to receive salvage therapy. Thank you very much for allowing me to participate in his care. If you have any questions or concerns, feel free to contact me at any time. ANT
[2016-12-10] MEDS: ENOXAPARIN 60 MG/0.6 ML SYR SQ SCH ×2 (12:12→21:21)
[2016-12-10] MEDS: PANTOprazole INJ 40 MG in SYRINGE 0 ML IV SCH (12:13)
--- NOTE | 2016-12-10 13:06 | SURGERY PROGRESS NOTE ---
DATE: 12/10/2016 Subjective: Mr. Crook was seen today on 12/10/2016. The patient had a PleurX catheter placed last night and we drained about a liter of fluid. He had 400 mL this morning when he was drained. He still is tenuous. His blood pressure is a bit better but he is on alpha agents. With 7 liters O2 with a facemask, he has 93% saturations. His aeration is better. I think his right lung actually looks worse to me today. It is important to note that we drained a liter of fluid out, placed a catheter and then drained another 400 mL out, this morning. The pH is 7.45, which would argue against this being any type of infection. His LDH was 154, which does not meet the criteria for an exudate. In addition, glucose is 106. Amylase is a bit elevated at 65. ASSESSMENT AND PLAN: 1. Left pleural effusion. The patient has not really improved from a respiratory standpoint after this fluid was drained; however, he is very ill. He appears to me to be quite cachectic and would not surprise me if indeed we do have a malignancy here. MTDD
--- NOTE | 2016-12-10 16:47 | Procedure Note ---
Procedure Note Date of Service December 09, 2016. Procedure Note Critical Care Medicine Point of Care Bedside Ultrasound Procedure: Procedural Ultrasound Procedure Date: 12/09/2016 Indication: sepsis hypotension Attending: Vikki Nesbitt DO Resident/Physician Escrow Manager: Oscar If for central venous access Artery AND Vein visualized: y Compressible Vein: y Guidewire or Short Catheter seen in vein prior to dilation: y Line confirmed in Vein with ultrasound: y Lung Sliding on side of attempt (if applicable): na If no lung sliding or not obtained has CXR been ordered: y Impression: successful Right IJ CVL Plan: follow-up with cxr to confirm position Images obtained are saved for permanent record
--- NOTE | 2016-12-10 16:59 | DIAGNOSTIC IMAGING REPORT ---
RIGHT LOWER EXTREMITY VENOUS DOPPLER CLINICAL HISTORY: Hypoxia. Sepsis. COMPARISON STUDY: Bilateral lower extremity venous Doppler October 18, 2016. TECHNIQUE: Sonography of the deep venous system of the right lower extremity was performed. Compression and augmentation were evaluated. FINDINGS: The common femoral, superficial femoral and popliteal veins were compressible. Augmentation was normal. Flow was shown within the deep calf vessels. Note was made of occlusive thrombus within a superficial vein within the right popliteal fossa. A portion of the right femoral vein was not well evaluated due to overlying tape. IMPRESSION: 1. No evidence of deep venous thrombus within the right lower extremity. 2. Occlusive superficial thrombus within a superficial vein of the right popliteal fossa. Electronically signed by: Everton Merida M.D. 12/10/2016 4:58 PM Dictated Date/Time: 12/10/2016 4:56 PM
[2016-12-10] MEDS ORDERED: ENOXAPARIN 1 MG/KG SQ SCH (20:45)
[2016-12-10] MEDS: NORTRIPTYLINE HCL 10 MG CAP PO SCH (21:19)
[2016-12-10] MEDS: INSULIN GLARGINE SOLOSTAR 100 UNITS/ML 3 ML PEN SC SCH (21:39)
[2016-12-10 21:42] LABS: BUN/CREATININE RATIO 19.8 (10-20); CREATININE 0.43 mg/dl (0.60-1.40); PHOSPHORUS 1.6 mg/dl (2.5-4.9); POTASSIUM 3.8 mmol/L (3.5-5.1)
[2016-12-10 21:57] LABS: CALCIUM 7.5 mg/dl (8.5-10.1)
[2016-12-10] MEDS ORDERED: HYDROmorphone INJ 1 MG/ML SYR IV PRN (22:00)
[2016-12-11] VITALS (35 sets, daily range): BP systolic 82–133; BP diastolic 43–71; PULSE 88–96; TEMP 36.8–36.9; O2SAT 84–97
[2016-12-11] MEDS: PIPERACILL/TAZOBAC IV 3.375 GM in DEXTROSE 5% 100ML 100 ML IV SCH ×3 (02:43→16:50)
[2016-12-11] MEDS: NORMOSOL R 1,000 ML IV SCH ×5 (02:50→21:20)
[2016-12-11] MEDS: INSULIN ASPART 100 UNITS/ML 3 ML PEN SC SCH ×5 (02:51→21:31)
[2016-12-11] MEDS: LINEZOLID / D5W 600 MG in PREMIXED IN D5W 300 ML IV SCH ×2 (04:37→16:49)
[2016-12-11 05:25] LABS: HEMATOCRIT 28.2 % (42-52); MEAN CELL VOLUME 92.5 fL (80-100); MEAN CORPUSCULAR HEMOGLOBIN 29.5 pg (25-34); MEAN CORPUSCULAR HGB CONC 31.9 g/dl (32-36); MEAN PLATELET VOLUME 9.6 fL (7.4-10.4); PLATELET COUNT 218 K/uL (130-400); RED BLOOD COUNT 3.05 M/uL (4.7-6.1)
[2016-12-11] MEDS: ALBUT/IPRATROP 3MG/0.5MG NEB 3 ML VIAL INH SCH ×5 (05:29→20:17)
[2016-12-11 05:34] LABS: INR 1.1 (0.9-1.1); PARTIAL THROMBOPLASTIN RATIO 1.6; PROTHROMBIN TIME (PATIENT) 11.9 SECONDS (9.0-12.0)
[2016-12-11 05:45] LABS: BUN/CREATININE RATIO 16.8 (10-20); CALCIUM 7.3 mg/dl (8.5-10.1); CREATININE 0.4 mg/dl (0.60-1.40); MAGNESIUM 1.9 mg/dl (1.8-2.4); POTASSIUM 3.7 mmol/L (3.5-5.1)
[2016-12-11] MEDS: LEVOTHYROXINE 75 MCG TAB PO SCH (05:51)
[2016-12-11] MEDS: METOCLOPRAMIDE HCL 5 MG TAB PO SCH ×3 (05:51→16:51)
[2016-12-11 05:58] LABS: BASO % 0.1 %; BASO ABS # 0.01 K/uL (0-0.2); COMPLETE YES; IG% 0.4 %; LYMPH % 1.9 %; LYMPH ABS # 0.22 K/uL (1.2-3.4); MONO % 4.1 %; NEUT % 93.5 %
[2016-12-11 06:13] LABS: PHOSPHORUS 1.6 mg/dl (2.5-4.9)
--- NOTE | 2016-12-11 07:05 | DIAGNOSTIC IMAGING REPORT ---
CHEST ONE VIEW PORTABLE CLINICAL HISTORY: Pneumonia COMPARISON STUDY: 12/10/2016 FINDINGS: The right internal jugular central venous catheter remains unchanged in position. There is a left subclavian central venous catheter fragment unchanged in position. The cardiac and mediastinal contours remain stable. There is underlying pulmonary emphysema. There are persistent bilateral pulmonary airspace opacities. These appear minimally progressive.[ The hilar structures remain prominent. IMPRESSION: Slight progression in the extensive bilateral pulmonary airspace opacities Electronically signed by: Aramis Lassiter M.D. 12/11/2016 7:04 AM Dictated Date/Time: 12/11/2016 7:02 AM
[2016-12-11] MEDS: FERROUS GLUCONATE 324 MG TAB PO SCH ×2 (08:45→16:50)
[2016-12-11] MEDS: LOPERAMIDE HCL 2 MG CAP PO SCH ×2 (08:46→21:28)
[2016-12-11] MEDS: AMIODARONE 200 MG TAB PO SCH ×2 (08:46→21:22)
[2016-12-11] MEDS: GUAIFENESIN 200 MG TAB PO SCH ×3 (08:46→21:28)
[2016-12-11] MEDS: INSULIN GLARGINE SOLOSTAR 100 UNITS/ML 3 ML PEN SC SCH ×2 (08:47→21:32)
[2016-12-11] MEDS: METHYLPREDNISOLONE IV 40 MG in SYRINGE 0 ML IV SCH ×3 (08:48→21:00)
[2016-12-11] MEDS ORDERED: POTASSIUM PHOS 3 MMOL/1 ML INFUSION IV STA (10:23)
[2016-12-11] MEDS ORDERED: NOREPINEPHRINE BIT INJ 8 MG in DEXTROSE 5% 500ML 500 ML IV PRN (10:30)
[2016-12-11] MEDS ORDERED: OPTIRAY 320 IV PRN (10:30)
--- NOTE | 2016-12-11 10:40 | DIAGNOSTIC IMAGING REPORT ---
CHEST CT WITH CONTRAST CT DOSE: 224.73 mGy.cm HISTORY: Lung mass query left lung mass TECHNIQUE: Multiaxial CT images of the chest were performed following the intravenous administration of contrast. COMPARISON: 12/09/2016 FINDINGS: Interval placement of a left basilar drainage catheter. Persistent consolidative change left lower lobe. Unchanging central area of necrosis measuring 3.3 x 2.5 cm. Enlarged right hilar node measuring 1.8 cm. Small left pleural effusion unchanged and are slightly diminished as compared to the prior study. Slightly progressive right basilar consolidative change. Interval development of bilateral parenchymal infiltrates and or progression of bilateral parenchymal infiltrates in the upper lung regions bilaterally as well as superior segments of the right as well as left lower lobes. Probable significant subcarinal nodes. Mild stable cardiomegaly. IMPRESSION: 1. Mildly progressive bilateral parenchymal infiltrative change, versus atypical components of respiratory distress. 2. Unchanging left lower lobe consolidative change with a central area of necrosis. 3. Right hilar, left hilar and mediastinal adenopathy similar as compared to the prior exam. 4. Interval placement of a left basilar drainage catheter with a slight decrease in volume of a left pleural effusion Electronically signed by: Domo Lucas M.D. 12/11/2016 10:39 AM Dictated Date/Time: 12/11/2016 10:30 AM
[2016-12-11] MEDS: PANTOprazole INJ 40 MG in SYRINGE 0 ML IV SCH (11:08)
[2016-12-11] MEDS: ENOXAPARIN 60 MG/0.6 ML SYR SQ SCH ×2 (11:17→23:42)
[2016-12-11] MEDS ORDERED: POTASSIUM PHOSPHATE INJ 24 MMOL in SODIUM CHLORIDE 0.9% 500ML 500 ML IV ONE (11:30)
--- NOTE | 2016-12-11 12:32 | Medical Consult ---
Consultation Note Date of Service December 11, 2016. Consultation Note 71 yo m with multiple medical problems, well known to Dr Fry for LLE ischemia and LLE BKA and subsequent AKA 2 weeks ago. Pt admits fatigue. Denies any other new complaints. CONST: A&O x3, NAD,frail, cachectic, elderly male EXT: LLE AKA C/D/I with avelnio. + mild tenderness. No erythema, ecchymosis or necrosis. Femur pressuring skin d/t lack of muscle coverage. A/P s/p LLE AKA LLE ischemia Pressure of femur against skin may cause erosion/tissue necrosis. None presently. May require revision, however, not urgent at this time. Otherwise, AKA healing well. Will reevaluate next week.
--- NOTE | 2016-12-11 13:09 | Critical Care Progress Note ---
Critical Care Progress Note Date of Service December 11, 2016. ICU Day ICU Day Number: [address] Nesbitt Subjective The patient notes that his shortness of breath is mildly improved Note that he has had a couple bouts of severe coughing, nonproductive No acute issues overnight Objective General Appearance: comfortable, cachetic Head: normocephalic, atraumatic Eyes: PERRLA, EOMI ENT: normal ear exam, normal nasal exam, normal mouth exam Neck: trachea midline, no stridor, supple; CVC in place, overlying skin appears dry and intact Respiratory: coarse breath sounds bilaterally with expiratory wheezing bilaterally Pleurx catheter in place; incisions appear normal; straw-colored fluid Cardiovasular: regular rate, S1 and S2 no added sounds or murmurs Abdomen: non tender, normal bowel sounds, no rebound Back: other (left buttock decubitus ulcer) Lower Extremities: no edema, other (AKA of left lower extremity) Neuro: alert, oriented x 3, CAM-ICU negative Psychiatric: normal affect, normal speech, purposeful responsiveness to commands Current SOFA Score SOFA Score Response (Comments) Value Platelets (x10) > 150 0 Bilirubin (mg/dL) < 1.2 0 [place] Coma Score 15 0 Level of Hypotension Dopamine > 15 mcq or Epi > 0.1 mcq 4 Creatinine (mg/dL) < 1.2 0 Total 4 Assessment & Plan (1) Necrotic pneumonia (2) Decubitus ulcer of left buttock (3) Acute kidney injury (4) Protein calorie malnutrition (5) History of left above knee amputation (6) History of pulmonary embolism (7) Decubital ulcer (8) Presence of IVC filter (9) Peripheral arterial disease (10) Atrial fibrillation and flutter (11) Sepsis (12) COPD (chronic obstructive pulmonary disease) (13) PVD (peripheral vascular disease) (14) Hypotension (15) Hypothyroidism (16) History of anal cancer This is a 71 year old patient, inmate at [facility], with acute problem list as noted above. Main concern at this point is the nature of the necrotic lung mass for which is having work-up. Our plan for him is as follows NEUROLOGICAL - GCS: 15 - CAM-ICU negative Pain is well controlled - Continues to have mild left subcostal pain --> Likel 2/2 pleural irritation from Pleurx, or irritation from necrotic mass - Dilaudid 0.5 mg q 2 hours PRN for pain Chronic neuropathy - Continue nortriptyline Anxiety - Ativan when necessary CARDIOVASCULAR Septic Shock, Hypotension - Like 2/2 obstructive pneumonia, questionable malignant etiology - BP: Continue Levofed infusion Reviewed baseline BPs, patient tends to be 90s over 6 baseline; small body habitus is consistent with this Reduce goal map to >=60; wean norepinephrine as tolerated - IV Fluids: Reduce Normosol rate to 70 ml/hr - Central line and radial artery catheter in place Atrial Fibrillation - Sinus rhythm and Currently Rate controlled - Continue Amiodarone - Hold metoprolol, particularly in the setting of low BPs with vasopressor weaning Will ultimately need rate control strategy when BP can tolerate RESPIRATORY Acute Hypoxemic Respiratory Distress - Secondary to obstructive pneumonia - Remains on 6 L by nasal cannula; Goal saturations 88-92%, given history of COPD - Baseline goal: 30 L by NC Left Sided PNA with Left Pleural Effusion - The remains a concern for underlying lung malignancy; primary versus recurrence is still unclear - CT with contrast was obtained Left lower lobe consolidative change with central area of necrosis; unclear as to whether this involves mass or not Right and left hilar and mediastinal adenopathy - Pleurx catheter in situ; continues to drain straw-colored fluid - Cytology performed on daily samples Sample from yesterday negative for malignant cells - Initial studies suggest transitive pleural fluid - Cardiac thoracic surgery is consulted and following the patient, there certainly recommendations Acute on Chronic COPD - Taper Solu-Medrol to 40 mg BID - DuoNeb - Continue Mucinex GASTROINTESTINAL - Diet: NPO due to vasopressor infusion - GI Prophylaxis: Protonix 40 mg IV Acute Transaminitis - Resolving; continue daily monitoring - Likely secondary to shock liver from initial septic presentation - Hepatitis panel pending negative for HepBs antigen and HepC 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; to whether lung mass may be recurrence versus new primary malignancy RENAL//ENDOCRINE - Fluid Balance Cumulatively +3.5 L 24-hour net +800 mL Meeting urine output goal of >= 0.5 ml/kg/hr Acute Kidney Injury - Resolved: Creatinine currently 0.4 - IV Fluids: Continue Normosol at 70 ml/hr, to avoid fluid overload with concurrent antibiotics Hypophosphatemia - Phos 1.6 today - K3.7 - 24 mmol K-Phos HEMATOLOGY/INFECTIOUS DISEASE - Afebrile overnight, Tmax 37; WBC to see improved to 11 Remains afebrile ; white blood cell count improved slightly to 13 (14 on arrival ) Anemia - Hemoglobin/hematocrit 9 /28.2 ; stable - Remains stable - Continue to monitor daily Sepsis 2/2 Necrotic PNA - Antibiotics: Continue Zosyn and linezolid - Blood cultures pending - Pleural fluid cultures pending, including fungal culture - ID consulted for antibiotic recommendations; they recommend continuing current antibiotics until culture data is available; the recommendations are appreciated - History of DVT - Patient arrived on Lovenox 60 twice a day; this was discontinued due to EDDIE which is now resolved - Xa level from yesterday suggested patient was on prophylactic dose but not therapeutic; based on weight Lovenox 50 mg BID - Right superficial popliteal DVT - As noted from [employer] [facility] dated yesterday - Unfortunately is unclear as to whether this is an acute or subacute DVT - Patient is currently on therapeutic Lovenox - Concern for possible hit syndrome - Based on 4 T score, is of intermediate probability - Unfortunately based on superficial DVT diagnosed as above, it is unclear whether this DVT was present patient is subtherapeutic versus whether was present prior to admission - HIT panel will be sent; if positive patient would need to be changed to Argatroban LINES/IV ACCESS - Right IJ triple lumen catheter - Left radial arterial line - Right 18-gauge - Left 20-gauge CODE STATUS - Full Code DISPOSITION - OT/PT: ordered - ICU Resident Physician Supervision Note: Dr. Moore was resident physician during care of patient. I separately evaluated patient and did history and exam. I discussed the case with the resident and generally agree with the findings and plan. Had a long discussion with the patient regarding goals of care and possible diagnosis of cancer. We discussed the options of doing a bronchoscopy and tissue biopsy versus doing nothing at all versus transitioning the palate of care. His goals of care are to live until January 02 in order to see his daughter get . He has better opportunities for visitation back at present. Not want to go on hospice care at this point because he is scared her concern that he may not get the care he needs in order to make it a January 02. Given the risk of bleeding from tissue biopsy and temporary improvement with a bronchoscopy he would prefer not to undergo invasive procedures that may risk prolonging his life to his daughter's wedding. Accordingly and going to look into having the patient remained stable off pressors, transitioning the antibiotics that can be administered at the group home for a recommended treatment length and discharge back to the group home healthcare system. Patient was critically ill still this morning requiring vasoactive medications he was able to wean off throughout the day, had extensive discussion regarding end-of-life care. I have personally spent 80 minutes of critical care time in the direct management of this patient. This is a life/limb threatening event. This includes time spent evaluating patient, direct bedside care, chart review, placing orders, interpretation of diagnostic studies, discussion with consultants, patient, and family members, as well as other required patient management activities. This time is exclusive of all separately billable procedures, and teaching time and separate from and in addition to any other critical care service time. Documented By: Uzair Nesbitt DO Consults & Procedures Consultants: CT surgery Hematology/Oncology Procedures: CHEST CT WITH CONTRAST CT DOSE: 224.73 mGy.cm HISTORY: Lung mass query left lung mass TECHNIQUE: Multiaxial CT images of the chest were performed following the intravenous administration of contrast. COMPARISON: 12/09/2016 FINDINGS: Interval placement of a left basilar drainage catheter. Persistent consolidative change left lower lobe. Unchanging central area of necrosis measuring 3.3 x 2.5 cm. Enlarged right hilar node measuring 1.8 cm. Small left pleural effusion unchanged and are slightly diminished as compared to the prior study. Slightly progressive right basilar consolidative change. Interval development of bilateral parenchymal infiltrates and or progression of bilateral parenchymal infiltrates in the upper lung regions bilaterally as well as superior segments of the right as well as left lower lobes. Probable significant subcarinal nodes. Mild stable cardiomegaly. IMPRESSION: 1. Mildly progressive bilateral parenchymal infiltrative change, versus atypical components of respiratory distress. 2. Unchanging left lower lobe consolidative change with a central area of necrosis. 3. Right hilar, left hilar and mediastinal adenopathy similar as compared to the prior exam. 4. Interval placement of a left basilar drainage catheter with a slight decrease in volume of a left pleural effusion Electronically signed by: Domo Lucas M.D. 12/11/2016 10:39 AM Dictated Date/Time: 12/11/2016 10:30 AM RIGHT LOWER EXTREMITY VENOUS DOPPLER CLINICAL HISTORY: Hypoxia. Sepsis. COMPARISON STUDY: Bilateral lower extremity venous Doppler October 18, 2016. TECHNIQUE: Sonography of the deep venous system of the right lower extremity was performed. Compression and augmentation were evaluated. FINDINGS: The common femoral, superficial femoral and popliteal veins were compressible. Augmentation was normal. Flow was shown within the deep calf vessels. Note was made of occlusive thrombus within a superficial vein within the right popliteal fossa. A portion of the right femoral vein was not well evaluated due to overlying tape. IMPRESSION: 1. No evidence of deep venous thrombus within the right lower extremity. 2. Occlusive superficial thrombus within a superficial vein of the right popliteal fossa. Electronically signed by: Everton Merida M.D. 12/10/2016 4:58 PM Dictated Date/Time: 12/10/2016 4:56 PM Data Medications: Current Inpatient Medications Medications (Trade) Dose Ordered Sig/Malcolm Route Start Time Stop Time Status Last Admin Dose Admin Lorazepam (Ativan Tab) 1 mg Q6H PRN PO 12/09/16 14:45 01/08/17 14:44 Nitroglycerin (Nitrostat Tab) 0.4 mg UD PRN SL 12/09/16 14:45 01/08/17 14:44 Al Hydrox/Mg Hydrox/Simethicone (Maalox Max Susp) 15 ml Q4H PRN PO 12/09/16 14:45 01/08/17 14:44 Magnesium Hydroxide (Milk Of Magnesia Susp) 30 ml Q12H PRN PO 12/09/16 14:45 01/08/17 14:44 Ondansetron HCl (Zofran Inj) 4 mg Q6H PRN IV 12/09/16 14:45 01/08/17 14:44 Albuterol/ Ipratropium 3 ml 3 ml QIDR INH 12/09/16 16:00 01/08/17 15:59 12/11/16 11:51 3 ML Piperacillin Sod/ Tazobactam Sod/ Dextrose (Zosyn Iv/D5 100ml) 115 ml @ 28.75 mls/ hr Q8H IV 12/09/16 18:00 12/16/16 09:59 12/11/16 10:56 28.75 MLS/HR Albuterol (Ventolin Hfa Inhaler) 2 puffs QID PRN INH 12/09/16 14:45 01/08/17 14:44 Amiodarone HCl (Cordarone Tab) 200 mg BID PO 12/09/16 21:00 01/08/17 20:59 12/11/16 08:46 200 MG Levothyroxine Sodium (Synthroid Tab) 225 mcg DAILYBB PO 12/10/16 06:00 01/09/17 06:59 12/11/16 05:51 225 MCG Loperamide HCl (Imodium Cap) 2 mg BID PO 12/09/16 21:00 01/08/17 20:59 12/11/16 08:46 2 MG Metoclopramide HCl (Reglan Tab) 5 mg AC PO 12/09/16 16:00 01/08/17 15:59 12/11/16 11:16 5 MG Nortriptyline HCl (Pamelor Cap) 10 mg HS PO 12/09/16 21:00 01/08/17 20:59 12/10/16 21:19 10 MG Ondansetron HCl (Zofran Tab) 8 mg TID PRN PO 12/09/16 14:45 01/08/17 14:44 Miscellaneous Information (Order Awaiting Action) 1 ea QS N/A 12/10/16 00:00 01/09/17 00:00 Future Hold Miscellaneous Information (Order Awaiting Action) 1 ea QS N/A 12/10/16 00:00 01/09/17 00:00 Future Hold Docusate Sodium (coLACE CAP) 200 mg DAILY PRN PO 12/09/16 17:00 01/08/17 16:59 Ferrous Gluconate (Ferrous Gluconate Tab) 324 mg BIDM PO 12/09/16 17:30 01/08/17 17:29 12/11/16 08:45 324 MG Guaifenesin (Organidin Nr Tab) 800 mg TID PO 12/09/16 21:00 01/08/17 20:59 12/11/16 08:46 800 MG Hydrocortisone (Hydrocortisone 2.5% Crm) 1 appln TID PRN EXT 12/09/16 17:00 01/08/17 16:59 Multi-Ingredient Ointment 1 gm 1 gm PRN PRN EXT 12/09/16 17:15 01/08/17 17:14 Linezolid/Prmx (Zyvox / D5W/ Premixed D5W) 300 ml @ 300 mls/hr Q12@0400,1600 IV 12/09/16 17:00 12/16/16 15:59 12/11/16 04:37 300 MLS/HR Piperacillin Sod/ Tazobactam Sod 1 ea 1 ea UD PRN N/A 12/09/16 16:45 01/08/17 16:44 Parenteral Electrolyte Solution 1,000 ml @ 70 mls/hr [id number] IV 12/09/16 17:30 01/08/17 17:29 12/11/16 11:07 70 MLS/HR Pantoprazole Sodium/Syringe (Protonix Inj/ Syringe) 10 ml @ 5 mls/min DAILY@1100 IV 12/10/16 11:00 01/09/17 10:59 12/11/16 11:08 5 MLS/MIN Miscellaneous Information (Consult Glycemic Management Pharmacy) 1 ea UD PRN N/A 12/09/16 21:45 01/08/17 21:44 Insulin Aspart (novoLOG ASPART) SLIDING SCALE ACHS SC 12/09/16 22:00 01/08/17 21:59 12/10/16 06:36 1 UNITS Glucose (Glucose 40% Gel) 15-30 GRAMS 15 GRAMS... UD PRN PO 12/09/16 21:45 01/08/17 21:44 Glucose (Glucose Chew Tab) 4-8 Tablets 4 Tabl... UD PRN PO 12/09/16 21:45 01/08/17 21:44 Dextrose (Dextrose 50% 50ML Syringe) 25-50ML OF 50% DW IV FOR... UD PRN IV 12/09/16 21:45 01/08/17 21:44 Glucagon (Glucagon Inj) 1 mg UD PRN SQ 12/09/16 21:45 01/08/17 21:44 Insulin Aspart (novoLOG ASPART) SLIDING SCALE 0200 SC 12/10/16 02:00 01/09/17 01:59 Heparin Sodium (Porcine) (Heparin 10 Unit/ ml 5 ml Flush) 5 ml PRN PRN FLUSH 12/10/16 00:45 01/09/17 00:44 Insulin Glargine (Lantus Solostar Pen) see Protocol Text BID SC 12/10/16 21:00 01/09/17 20:59 12/11/16 08:47 5 UNIT Enoxaparin Sodium (Lovenox Inj) 50 mg Q12H SQ 12/10/16 11:00 01/09/17 10:59 12/11/16 11:17 50 MG Hydromorphone HCl 0.5 mg 0.5 mg Q2H PRN IV 12/10/16 22:00 12/24/16 21:59 Norepinephrine Bitartrate 8 mg/ Dextrose 508 ml @ 0 mls/hr Q0M PRN IV 12/11/16 10:30 01/10/17 10:29 Methylprednisolone Sodium Succinate/ Syringe (Solu-Medrol IV/ Syringe) 0.64 ml @ 1.5 mls/min BID IV 12/11/16 12:00 12/11/16 23:59 12/11/16 11:39 1.5 MLS/MIN Ioversol 100 ml 100 ml UD PRN IV 12/11/16 10:30 12/15/16 10:29 Potassium Phosphate 24 mmol/ Sodium Chloride 508 ml @ 127 mls/hr TODAY@1130 ONCE IV 12/11/16 11:30 12/11/16 15:29 12/11/16 11:39 127 MLS/HR Methylprednisolone Sodium Succinate/ Syringe (Solu-Medrol IV/ Syringe) 0.64 ml @ 1.5 mls/min BID@0800,2000 IV 12/12/16 08:00 01/11/17 07:59 I & O: 24-Hour Column 12/11/16 08:00 Intake Total 4421 ml Output Total 3700 ml Balance 721 ml Vital Signs: Date Time Temp Pulse Resp B/P Pulse Ox O2 Delivery O2 Flow Rate FiO2 12/11/16 12:03 95 20 92 133/64 12/11/16 12:02 92 Nasal Cannula 6.0 12/11/16 12:00 36.8 92 21 114/58 91 Nasal Cannula 6.0 12/11/16 11:51 Nasal Cannula 12/11/16 11:51 92 22 92 Nasal Cannula 6.0 12/11/16 11:00 91 24 93 123/59 12/11/16 10:00 96 24 106/71 91 113/50 12/11/16 09:00 96 27 106/64 88 112/51 12/11/16 08:03 95 24 90 Nasal Cannula 6.0 12/11/16 08:01 36.8 95 25 118/57 97 5/12/17 08:00 Nasal Cannula 6.0 Humidified Oxygen 12/11/16 08:00 95 25 118/59 96 12/11/16 08:00 Nasal Cannula 12/11/16 08:00 95 25 96 118/59 12/11/16 07:00 96 28 85/60 84 89/43 12/11/16 06:01 94 25 103/60 91 109/48 12/11/16 05:30 88 24 118/62 97 122/56 12/11/16 05:29 93 24 87 Nasal Cannula 6.0 12/11/16 05:00 92 24 116/68 90 110/50 12/11/16 04:30 91 27 98/52 90 112/52 12/11/16 04:00 92 Nasal Cannula 6.0 12/11/16 04:00 36.9 90 25 111/66 89 116/53 12/11/16 03:30 91 30 84/66 92 114/50 12/11/16 03:01 90 22 102/67 90 114/52 12/11/16 02:31 90 18 102/64 90 111/50 12/11/16 02:00 92 23 107/65 90 117/53 12/11/16 01:31 92 23 116/62 88 107/50 12/11/16 01:00 91 22 103/63 89 108/50 12/11/16 00:30 93 24 106/61 90 105/50 12/11/16 00:01 36.8 92 23 108/ 89 110/51 12/10/16 23:59 Nasal Cannula 6.0 12/10/16 23:30 93 20 98/61 88 106/49 12/10/16 22:30 94 26 103/54 88 105/49 12/10/16 22:00 93 23 99/56 94 100/47 12/10/16 21:32 97 29 78/48 84 88/44 12/10/16 21:31 99 32 67/37 82 76/38 12/10/16 21:00 95 29 93/59 90 285/283 12/10/16 20:36 93 22 94 Diffusion Mask 7.0 12/10/16 20:30 89 22 102/56 94 102/49 12/10/16 20:01 36.9 90 22 98/61 94 98/47 12/10/16 20:00 92 Nasal Cannula 6.0 12/10/16 19:30 91 32 93/54 95 100/52 12/10/16 19:01 90 26 101/59 95 106/48 12/10/16 17:01 91 25 95/62 95 Mask 7.0 12/10/16 17:00 91 24 102/51 95 12/10/16 16:45 92 27 104/53 96 12/10/16 16:30 94 23 108/62 93 12/10/16 16:15 93 28 109/51 95 12/10/16 16:00 36.8 95 24 105/57 93 Mask 7.0 12/10/16 15:45 91 24 104/52 95 12/10/16 15:32 92 24 99/60 94 12/10/16 15:30 93 23 107/51 94 12/10/16 15:22 92 Mask 6.0 12/10/16 15:15 91 24 102/50 94 12/10/16 15:11 91 22 98 Diffusion Mask 6.0 12/10/16 15:00 91 24 100/49 12/10/16 14:00 36.9 90 22 99/48 93 Mask 7.0 Laboratory Results: Last 24 Hours Test 12/10/16 16:43 12/10/16 21:00 12/10/16 21:08 12/11/16 02:52 Bedside Glucose 141 mg/dl Sodium Level 142 mmol/L Potassium Level 3.8 mmol/L Chloride Level 106 mmol/L Carbon Dioxide Level 30 mmol/L Anion Gap 6.0 mmol/L Blood Urea Nitrogen 9 mg/dl Creatinine 0.43 mg/dl Est Creatinine Clear Calc Drug Dose 112.8 ml/min Estimated GFR () 136.4 Estimated GFR (Non- 117.6 BUN/Creatinine Ratio 19.8 Random Glucose 127 mg/dl Calcium Level 7.5 mg/dl Phosphorus Level 1.6 mg/dl Magnesium Level 2.0 mg/dl Bedside Glucose (other) 135 mg/dl 106 mg/dl Test 12/11/16 05:12 12/11/16 06:46 12/11/16 11:03 12/11/16 11:28 White Blood Count 11.40 K/uL Red Blood Count 3.05 M/uL Hemoglobin 9.0 g/dL Hematocrit 28.2 % Mean Corpuscular Volume 92.5 fL Mean Corpuscular Hemoglobin 29.5 pg Mean Corpuscular Hemoglobin Concent 31.9 g/dl Platelet Count 218 K/uL Mean Platelet Volume 9.6 fL Neutrophils (%) (Auto) 93.5 % Lymphocytes (%) (Auto) 1.9 % Monocytes (%) (Auto) 4.1 % Eosinophils (%) (Auto) 0.0 % Basophils (%) (Auto) 0.1 % Neutrophils # (Auto) 10.65 K/uL Lymphocytes # (Auto) 0.22 K/uL Monocytes # (Auto) 0.47 K/uL Eosinophils # (Auto) 0.00 K/uL Basophils # (Auto) 0.01 K/uL RDW Standard Deviation 60.8 fL RDW Coefficient of Variation 18.6 % Immature Granulocyte % (Auto) 0.4 % Immature Granulocyte # (Auto) 0.05 K/uL Nucleated RBC Absolute Count (auto) 0.05 K/uL Nucleated Red Blood Cells % 0.5 % Red Blood Cell Morphology Unremarkable Prothrombin Time 11.9 SECONDS Prothromb Time International Ratio 1.1 Activated Partial Thromboplast Time 40.8 SECONDS Partial Thromboplastin Ratio 1.6 Heparin Anti-Xa Act, Low Molec Wt 0.62 IU/ML Sodium Level 142 mmol/L Potassium Level 3.7 mmol/L Chloride Level 105 mmol/L Carbon Dioxide Level 31 mmol/L Anion Gap 6.0 mmol/L Blood Urea Nitrogen 7 mg/dl Creatinine 0.40 mg/dl Est Creatinine Clear Calc Drug Dose 121.3 ml/min Estimated GFR () 140.5 Estimated GFR (Non- 121.2 BUN/Creatinine Ratio 16.8 Random Glucose 137 mg/dl Lactic Acid Level 1.1 mmol/L Calcium Level 7.3 mg/dl Phosphorus Level 1.6 mg/dl Magnesium Level 1.9 mg/dl Total Bilirubin 0.4 mg/dl Direct Bilirubin 0.2 mg/dl Aspartate Amino Transf (AST/SGOT) 84 U/L Alanine Aminotransferase (ALT/SGPT) 197 U/L Alkaline Phosphatase 200 U/L Total Protein 4.5 gm/dl Albumin 1.4 gm/dl Bedside Glucose (other) 165 mg/dl 113 mg/dl Heparin-PF4 Antibody Screen NEG Test 12/11/16 12:06 12/11/16 12:32 Lactic Acid Level 1.7 mmol/L Problem Qualifiers (1) Decubitus ulcer of left buttock: Pressure ulcer stage: stage 2 Qualified Codes: L89.322 - Pressure ulcer of left buttock, stage 2
--- NOTE | 2016-12-11 13:20 | Pharmacy Progress Note ---
Glycemic Control: Progress Nt Date of Service December 11, 2016. Scope Glycemic Pharmacist consulted by Audi Waddell on 12/09/16 for glycemic control and to write orders per [facility] inpatient glycemic control protocol. Objective Accuchecks BSG (last 24hrs): Test 12/10/16 16:43 12/10/16 21:00 12/11/16 05:12 Bedside Glucose 141 mg/dl (70-99) Random Glucose 127 mg/dl (70-99) 137 mg/dl (70-99) Laboratory Data (last 24hrs) Test 12/10/16 21:00 12/11/16 05:12 Anion Gap 6.0 mmol/L 6.0 mmol/L BUN/Creatinine Ratio 19.8 16.8 Blood Urea Nitrogen 9 mg/dl 7 mg/dl Creatinine 0.43 mg/dl 0.40 mg/dl Potassium Level 3.8 mmol/L 3.7 mmol/L Sodium Level 142 mmol/L 142 mmol/L White Blood Count 11.40 K/uL Red Blood Count 3.05 M/uL Hemoglobin 9.0 g/dL Hematocrit 28.2 % Mean Corpuscular Volume 92.5 fL Mean Corpuscular Hemoglobin 29.5 pg Mean Corpuscular Hemoglobin Concent 31.9 g/dl Platelet Count 218 K/uL Mean Platelet Volume 9.6 fL Neutrophils (%) (Auto) 93.5 % Lymphocytes (%) (Auto) 1.9 % Monocytes (%) (Auto) 4.1 % Eosinophils (%) (Auto) 0.0 % Basophils (%) (Auto) 0.1 % Neutrophils # (Auto) 10.65 K/uL Lymphocytes # (Auto) 0.22 K/uL Monocytes # (Auto) 0.47 K/uL Eosinophils # (Auto) 0.00 K/uL Basophils # (Auto) 0.01 K/uL HbA1c: Item Value Date Time Hemoglobin A1c 6.1 % H 10/22/16 0538 Recent Pertinent Medications Outpatient Anti-diabetic Regimen: * No prior dx of DM * A1c = 6.1 % 10/22/16, consistent w/ "pre-diabetes" The patient is currently receiving: * Basal insulin: Lantus 5 units every 12 hours if BSG >120 mg/dL * Correctional Insulin: Novolog Correction per scale ACHS and at 0200 Goal Range: Low 140 mg/dL - High 180 mg/dL Correction Factor: 35 mg/dL/unit * Prandial insulin: Per carb ratio of 1 unit per 15 grams CHO consumed * Oral Agents: None currently Risk Factors for Insulin Resistance: * Steroids * Infection * Pressors * IVF * Diet Assessment & Plan ASSESSMENT: 12/11/16 * Pre-diabetic patient admitted 12/09/16 with hypotension, hypoxia, presumed sepsis - likely source pulmonary (PNX, COPD exac) * The glycemic service has followed this patient on prior admission - and usually he is fairly insulin sensitive, but has required an insulin drip while ventilated, infected and on steroids -- even so, while on the insulin drip his total daily requirements were still less than 20 units. * As of this morning on rounds, he remains on pressor support and continues on IV steroids * Plan will be to wean levo off if possible and change solumedrol to 40 mg IV BID starting tomorrow * Yesterday BSGs were well controlled ranging 123 - 208 mg/dL (highest being fasting before basal initiated) * I see no evidence to change regimen over the next 24 hours * I anticipate needing to loosen coverage due to decrease in steroids tomorrow (discussed with weekend pharmacist) PLAN FOR INPATIENT GLYCEMIC CONTROL: * Continue Lantus 5 units SQ BID - hold if BSG less than 140 * Continuing correction factor of 35 mg/dl/unit * Continuing carb ratio to 1 unit per 15 grams CHO consumed * Continuing goal range of Low 140 mg/dL - High 180 mg/dL * Reassess insulin doses each time steroid dose is changed. * Please note that the plan above was derived based on current level of insulin resistance and hospital stress. These recommendations are appropriate for inpatient admission only. Plan of care upon discharge will need to be reassessed to avoid potential outpatient hypo/hyperglycemia. Thank you.
--- NOTE | 2016-12-11 16:59 | SURGERY PROGRESS NOTE ---
DATE: 12/11/2016 SUBJECTIVE: Mr. Crook was seen today. 400 mL was drained from his PleurX catheter today. We are not growing anything out of this. The cytology is negative but I still think we are dealing with a malignancy. CT scan was then obtained which showed parenchymal changes in both lower lobes. There is also a central area of necrosis in the lower lobe with consolidative changes and mediastinal adenopathy as well as hilar adenopathy. The pleural fluid is almost completely drained. This patient looks quite emaciated. We will discuss with bronchoscopy with him.
--- NOTE | 2016-12-11 18:49 | Hospitalist Progress Note ---
Hospitalist Progress Note Date of Service December 11, 2016. Subjective Pt evaluation today including: conversation w/ patient, physical exam, chart review C/o feeling tired. Denies fevers/chills. Medications Medications (Trade) Dose Ordered Sig/Malcolm Route Start Time Stop Time Status Last Admin Dose Admin Insulin Glargine see Protocol Text BID SC 12/10/16 21:00 01/09/17 20:59 12/11/16 08:47 5 UNIT Methylprednisolone Sodium Succinate 40 mg/Syringe 0.64 ml @ 1.5 mls/min BID IV 12/11/16 12:00 12/11/16 23:59 12/11/16 11:39 1.5 MLS/MIN Potassium Phosphate/Sodium Chloride (Potassium Phosphate Inj/Nss 500ml) 508 ml @ 127 mls/hr TODAY@1130 ONCE IV 12/11/16 11:30 12/11/16 15:29 DC 12/11/16 11:39 127 MLS/HR Objective Vital Signs Date Time Temp Pulse Resp B/P Pulse Ox O2 Delivery O2 Flow Rate FiO2 12/11/16 17:00 96 25 91/52 90 100/50 12/11/16 16:00 94 23 88/55 85 91/45 12/11/16 16:00 91 Nasal Cannula 6.0 Humidified Oxygen 12/11/16 16:00 96 24 82/51 92 Nasal Cannula 6.0 Humidified Oxygen 12/11/16 15:00 91 24 91/57 91 90/46 12/11/16 15:00 92 22 92 Nasal Cannula 6.0 12/11/16 14:00 93 21 95/55 90 99/49 12/11/16 13:00 95 21 105/63 89 106/47 12/11/16 12:03 95 20 92 133/64 12/11/16 12:02 92 Nasal Cannula 6.0 12/11/16 12:00 36.8 92 21 114/58 91 Nasal Cannula 6.0 12/11/16 11:51 Nasal Cannula 12/11/16 11:51 92 22 92 Nasal Cannula 6.0 12/11/16 11:00 91 24 93 123/59 12/11/16 10:00 96 24 106/71 91 113/50 12/11/16 09:00 96 27 106/64 88 112/51 12/11/16 08:03 95 24 90 Nasal Cannula 6.0 12/11/16 08:01 36.8 95 25 118/57 97 12/11/16 08:00 Nasal Cannula 6.0 Humidified Oxygen 12/11/16 08:00 95 25 118/59 96 12/11/16 08:00 Nasal Cannula 12/11/16 08:00 95 25 96 118/59 12/11/16 07:00 96 28 85/60 84 89/43 12/11/16 06:01 94 25 103/60 91 109/48 12/11/16 05:30 88 24 118/62 97 122/56 12/11/16 05:29 93 24 87 Nasal Cannula 6.0 12/11/16 05:00 92 24 116/68 90 110/50 12/11/16 04:30 91 27 98/52 90 112/52 12/11/16 04:00 92 Nasal Cannula 6.0 12/11/16 04:00 36.9 90 25 111/66 89 116/53 12/11/16 03:30 91 30 84/66 92 114/50 12/11/16 03:01 90 22 102/67 90 114/52 12/11/16 02:31 90 18 102/64 90 111/50 12/11/16 02:00 92 23 107/65 90 117/53 12/11/16 01:31 92 23 116/62 88 107/50 12/11/16 01:00 91 22 103/63 89 108/50 12/11/16 00:30 93 24 106/61 90 105/50 12/11/16 00:01 36.8 92 23 108/ 89 110/51 12/10/16 23:59 Nasal Cannula 6.0 12/10/16 23:30 93 20 98/61 88 106/49 12/10/16 22:30 94 26 103/54 88 105/49 12/10/16 22:00 93 23 99/56 94 100/47 12/10/16 21:32 97 29 78/48 84 88/44 12/10/16 21:31 99 32 67/37 82 76/38 12/10/16 21:00 95 29 93/59 90 285/283 12/10/16 20:36 93 22 94 Diffusion Mask 7.0 12/10/16 20:30 89 22 102/56 94 102/49 12/10/16 20:01 36.9 90 22 98/61 94 98/47 12/10/16 20:00 92 Nasal Cannula 6.0 12/10/16 19:30 91 32 93/54 95 100/52 12/10/16 19:01 90 26 101/59 95 106/48 Physical Exam General Appearance: WD/WN Eyes: normal inspection ENT: normal ENT inspection Neck: supple, no adenopathy, no JVD Respiratory/Chest: chest non-tender, + decreased breath sounds, + pertinent finding (left pleurex catheter) Cardiovascular: regular rate, rhythm, no JVD, no murmur Abdomen: normal bowel sounds, non tender, soft Extremities: + pertinent finding (left AKA stump ok) Neurologic/Psychiatric: no motor/sensory deficits, alert Laboratory Results Last 24 Hours Test 12/10/16 21:00 12/10/16 21:08 12/11/16 02:52 12/11/16 05:12 Sodium Level 142 mmol/L 142 mmol/L Potassium Level 3.8 mmol/L 3.7 mmol/L Chloride Level 106 mmol/L 105 mmol/L Carbon Dioxide Level 30 mmol/L 31 mmol/L Anion Gap 6.0 mmol/L 6.0 mmol/L Blood Urea Nitrogen 9 mg/dl 7 mg/dl Creatinine 0.43 mg/dl 0.40 mg/dl Est Creatinine Clear Calc Drug Dose 112.8 ml/min 121.3 ml/min Estimated GFR () 136.4 140.5 Estimated GFR (Non- 117.6 121.2 BUN/Creatinine Ratio 19.8 16.8 Random Glucose 127 mg/dl 137 mg/dl Calcium Level 7.5 mg/dl 7.3 mg/dl Phosphorus Level 1.6 mg/dl 1.6 mg/dl Magnesium Level 2.0 mg/dl 1.9 mg/dl Bedside Glucose (other) 135 mg/dl 106 mg/dl White Blood Count 11.40 K/uL Red Blood Count 3.05 M/uL Hemoglobin 9.0 g/dL Hematocrit 28.2 % Mean Corpuscular Volume 92.5 fL Mean Corpuscular Hemoglobin 29.5 pg Mean Corpuscular Hemoglobin Concent 31.9 g/dl Platelet Count 218 K/uL Mean Platelet Volume 9.6 fL Neutrophils (%) (Auto) 93.5 % Lymphocytes (%) (Auto) 1.9 % Monocytes (%) (Auto) 4.1 % Eosinophils (%) (Auto) 0.0 % Basophils (%) (Auto) 0.1 % Neutrophils # (Auto) 10.65 K/uL Lymphocytes # (Auto) 0.22 K/uL Monocytes # (Auto) 0.47 K/uL Eosinophils # (Auto) 0.00 K/uL Basophils # (Auto) 0.01 K/uL RDW Standard Deviation 60.8 fL RDW Coefficient of Variation 18.6 % Immature Granulocyte % (Auto) 0.4 % Immature Granulocyte # (Auto) 0.05 K/uL Nucleated RBC Absolute Count (auto) 0.05 K/uL Nucleated Red Blood Cells % 0.5 % Red Blood Cell Morphology Unremarkable Prothrombin Time 11.9 SECONDS Prothromb Time International Ratio 1.1 Activated Partial Thromboplast Time 40.8 SECONDS Partial Thromboplastin Ratio 1.6 Heparin Anti-Xa Act, Low Molec Wt 0.62 IU/ML Lactic Acid Level 1.1 mmol/L Total Bilirubin 0.4 mg/dl Direct Bilirubin 0.2 mg/dl Aspartate Amino Transf (AST/SGOT) 84 U/L Alanine Aminotransferase (ALT/SGPT) 197 U/L Alkaline Phosphatase 200 U/L Total Protein 4.5 gm/dl Albumin 1.4 gm/dl Test 12/11/16 06:46 12/11/16 11:03 12/11/16 11:28 12/11/16 12:06 Bedside Glucose (other) 165 mg/dl 113 mg/dl Heparin-PF4 Antibody Screen NEG Lactic Acid Level 1.7 mmol/L Test 12/11/16 12:32 12/11/16 18:05 Procalcitonin 0.06 ng/ml Diagnostic Results [~ rep ct add3]] CHEST CT WITH CONTRAST CT DOSE: 224.73 mGy.cm HISTORY: Lung mass query left lung mass TECHNIQUE: Multiaxial CT images of the chest were performed following the intravenous administration of contrast. COMPARISON: 12/09/2016 FINDINGS: Interval placement of a left basilar drainage catheter. Persistent consolidative change left lower lobe. Unchanging central area of necrosis measuring 3.3 x 2.5 cm. Enlarged right hilar node measuring 1.8 cm. Small left pleural effusion unchanged and are slightly diminished as compared to the prior study. Slightly progressive right basilar consolidative change. Interval development of bilateral parenchymal infiltrates and or progression of bilateral parenchymal infiltrates in the upper lung regions bilaterally as well as superior segments of the right as well as left lower lobes. Probable significant subcarinal nodes. Mild stable cardiomegaly. IMPRESSION: 1. Mildly progressive bilateral parenchymal infiltrative change, versus atypical components of respiratory distress. 2. Unchanging left lower lobe consolidative change with a central area of necrosis. 3. Right hilar, left hilar and mediastinal adenopathy similar as compared to the prior exam. 4. Interval placement of a left basilar drainage catheter with a slight decrease in volume of a left pleural effusion Electronically signed by: Domo Lucas M.D. 12/11/2016 10:39 AM Dictated Date/Time: 12/11/2016 10:30 AM CHEST ONE VIEW PORTABLE CLINICAL HISTORY: Pneumonia COMPARISON STUDY: 12/10/2016 FINDINGS: The right internal jugular central venous catheter remains unchanged in position. There is a left subclavian central venous catheter fragment unchanged in position. The cardiac and mediastinal contours remain stable. There is underlying pulmonary emphysema. There are persistent bilateral pulmonary airspace opacities. These appear minimally progressive.[ The hilar structures remain prominent. IMPRESSION: Slight progression in the extensive bilateral pulmonary airspace opacities Electronically signed by: Aramis Lassiter M.D. 12/11/2016 7:04 AM Dictated Date/Time: 12/11/2016 7:02 AM [~ rep ct add3]] RIGHT LOWER EXTREMITY VENOUS DOPPLER CLINICAL HISTORY: Hypoxia. Sepsis. COMPARISON STUDY: Bilateral lower extremity venous Doppler October 18, 2016. TECHNIQUE: Sonography of the deep venous system of the right lower extremity was performed. Compression and augmentation were evaluated. FINDINGS: The common femoral, superficial femoral and popliteal veins were compressible. Augmentation was normal. Flow was shown within the deep calf vessels. Note was made of occlusive thrombus within a superficial vein within the right popliteal fossa. A portion of the right femoral vein was not well evaluated due to overlying tape. IMPRESSION: 1. No evidence of deep venous thrombus within the right lower extremity. 2. Occlusive superficial thrombus within a superficial vein of the right popliteal fossa. Electronically signed by: Everton Merida M.D. 12/10/2016 4:58 PM Assessment and Plan 71 yo M with extensive PMHx including Atrial fib and flutter s/p IVC placement, COPD, necrotic pneumonia, hyposic respiratory failure, Hx of PE, PVD, Hypothyroidism, decubitus ulcer of the left ischium and sacrum, Hx of left AKA, anal carcinoma in 2005 who presented in septic shock secondary to obstructive pneumonia. Acute hypoxia respiratory failure Sepsis secondary to obstructive/necrotizing pneumonia - ICU - Maintained on norepinephrine with MAP>65 - Continue fluids with Normosol @ 100mL/hr - Also with hx of COPD and severe emphysema so O2 sats titrated to 88-92% - ID consulted- for now will continue on linezolid and zosyn (day #2), received 1 dose of vanc - BCx in process, follow - WBC 13.6 with left shift - Supportive treatment with incentive spirometry, flutter- pt does not ambulated due to recent left AKA and health, he is too weak/fatigued. - CXR repeated this morning: IMPRESSION: Persistent bilateral pulmonary airspace opacities. Underlying emphysema. - CT chest 12/09 initially showed: Moderate left pleural effusion with extensive left lower lobe airspace opacity which favors pneumonia. Apparent 3.6 x 3 cm focus of fluid within the central aspect of this consolidated lung raises the possibility of a necrotizing pneumonia/abscess. Left sided pleural effusion - Pleurex catheter placed by Dr. Jaramillo on 12/09 - plans for all pleural fluid to be sent to lab for cytology as there is concern for malignant effusion with hx of anal carcinoma in 2004- appreciate thoracic med recs - Studies pending including culture, fungal, and AFB Right Lower extremity Pain - US shows superficial clot in the popliteal vein. Acute on Chronic COPD - Solu-medrol 40 mg TID; taper down per clinical status - still with some wheezing and coarse breath sounds today so would continue this regimen for now. - DuoNebs QID an Q2H prn Acute Transaminitis secondary to shock liver - Follow LFTs, trending downward - Await hepatitis panel EDDIE - Resolved with aggressive fluid resuscitation with Cr. back down to 0.64 Elevated Glucose - Continue on Lantus 5 U BID with steriods along with ISS, hypoglycemic ppx on board - Hgb A1C= 6.1 in September 2016, no need to repeat. Hypophosphatemia - Decreased at 1.5, replaced this morning Elevated Troponin - Likely secondary to demand ischemia associated with septic shock - trended downward to 1.030 - Continue to follow x 1 more set - EKG with T wave inversions in inferior leads suggestive of ischemia Atrial Fibrillation - Cont amiodarone 200 mcg PO BID, EKG obtained today shows sinus rhythm Hypothyroidism: Cont levothyroxine 225 mcg daily Ileus: - CT abd/pelvis showing dilated bowel loops likely determinate of ileus, will keep NPO for now. - Pt with c/o LUQ pain, monitor with abdominal checks, abd nondistended and soft today Sacral decubitus ulceration - Turn and repo Q2H - Wound care consultation - Possible recurrence of malignancy with hx of anal carcinoma Lines: Right IJ catheter Left pleurex catheter IV x 2 sites GI ppx: Pantoprazole 40 mg IV BID DVT ppx: Lovenox 60 mg subq Q12H CODE STATUS: FULL CODE
[2016-12-11] MEDS: NORTRIPTYLINE HCL 10 MG CAP PO SCH (21:28)
[2016-12-12] VITALS (41 sets, daily range): BP systolic 73–119; BP diastolic 41–75; PULSE 93–111; TEMP 36.7–36.8; O2SAT 87–96
[2016-12-12] MEDS: PIPERACILL/TAZOBAC IV 3.375 GM in DEXTROSE 5% 100ML 100 ML IV SCH (02:26)
[2016-12-12 05:48] LABS: BASO % 0.2 %; BASO ABS # 0.02 K/uL (0-0.2); HEMATOCRIT 28.9 % (42-52); IG% 0.7 %; LYMPH % 4.5 %; LYMPH ABS # 0.55 K/uL (1.2-3.4); MEAN CORPUSCULAR HEMOGLOBIN 27.7 pg (25-34); MEAN CORPUSCULAR HGB CONC 30.1 g/dl (32-36); MEAN PLATELET VOLUME 9.7 fL (7.4-10.4); NEUT % 88.6 %; PLATELET COUNT 179 K/uL (130-400); RED BLOOD COUNT 3.14 M/uL (4.7-6.1); WHITE BLOOD COUNT 12.24 K/uL (4.8-10.8)
[2016-12-12] MEDS: LINEZOLID / D5W 600 MG in PREMIXED IN D5W 300 ML IV SCH (05:50)
[2016-12-12 05:56] LABS: INR 1.1 (0.9-1.1); PARTIAL THROMBOPLASTIN RATIO 1.6; PROTHROMBIN TIME (PATIENT) 11.4 SECONDS (9.0-12.0)
[2016-12-12 06:20] LABS: COMPLETE YES; POLYCHROMASIA 1+
[2016-12-12] MEDS: LEVOTHYROXINE 75 MCG TAB PO SCH (06:20)
[2016-12-12 06:25] LABS: BUN/CREATININE RATIO 16.3 (10-20); CALCIUM 7.6 mg/dl (8.5-10.1); CREATININE 0.35 mg/dl (0.60-1.40); MAGNESIUM 1.9 mg/dl (1.8-2.4); POTASSIUM 3.5 mmol/L (3.5-5.1)
[2016-12-12 06:28] LABS: PHOSPHORUS 1.6 mg/dl (2.5-4.9)
[2016-12-12] MEDS: METOCLOPRAMIDE HCL 5 MG TAB PO SCH ×3 (06:45→16:01)
[2016-12-12] MEDS: ALBUT/IPRATROP 3MG/0.5MG NEB 3 ML VIAL INH SCH ×4 (07:25→19:26)
[2016-12-12] MEDS: FERROUS GLUCONATE 324 MG TAB PO SCH ×2 (07:55→16:02)
[2016-12-12] MEDS: GUAIFENESIN 200 MG TAB PO SCH ×2 (07:57→14:00)
[2016-12-12] MEDS: AMIODARONE 200 MG TAB PO SCH (07:57)
[2016-12-12] MEDS: LOPERAMIDE HCL 2 MG CAP PO SCH (07:57)
[2016-12-12] MEDS: METHYLPREDNISOLONE IV 40 MG in SYRINGE 0 ML IV SCH ×2 (08:01→20:06)
--- NOTE | 2016-12-12 08:10 | Hospitalist Progress Note ---
Hospitalist Progress Note Date of Service December 12, 2016. (Jennifer Alarcon PA-C) Subjective Pt evaluation today including: conversation w/ patient, physical exam, chart review, lab review, review of studies Voiding: hopson catheter in place The patient was seen and examined this morning. Patient reports feeling okay this morning. Patient reports his breathing difficulty at times but overall seems improved. He had a Pleurx catheter draining this morning 400 mL out. Patient reports that her right lower extremity today, although he has already been diagnosed with a DVT in that leg. Discussion of goals of care were again briefly touched upon with the patient, he would like to make it until January 02 to see his daughter get . Additional Comments: Constitutional: No fever, sweats or chills, + fatigue Eyes: No diplopia, no worsening or blurred vision ENT: normal hearing, no trouble swallowing Respiratory: + cough, +sputum occasionally, +dyspnea on exertion but not at rest Cardiovascular: No chest pain, tightness or palpitations Abdomen: No pain, nausea, vomiting, diarrhea or constipation, hopson catheter in place Musculoskeletal: No joint pain, + right calf pain, no swelling Neurologic: No weakness, numbness/tingling Skin: No rash or itch (Jennifer Alarcon PA-C) Objective Vital Signs Date Time Temp Pulse Resp B/P Pulse Ox O2 Delivery O2 Flow Rate FiO2 12/12/16 07:25 94 22 91 Nasal Cannula 6.0 12/12/16 04:49 92 Nasal Cannula 6.0 Humidified Oxygen 12/12/16 00:37 92 Nasal Cannula 6.0 Humidified Oxygen 12/11/16 20:17 93 22 93 Nasal Cannula 6.0 12/11/16 20:08 92 Nasal Cannula 6.0 Humidified Oxygen 12/11/16 20:00 36.8 91 28 91/59 92 Nasal Cannula 6.0 Humidified Oxygen 12/11/16 19:30 93 21 88/53 91 Nasal Cannula 6.0 Humidified Oxygen 12/11/16 19:00 93 21 90/53 91 Nasal Cannula 6.0 Humidified Oxygen 12/11/16 17:00 96 25 91/52 90 100/50 12/11/16 16:00 94 23 88/55 85 91/45 12/11/16 16:00 91 Nasal Cannula 6.0 Humidified Oxygen 12/11/16 16:00 96 24 82/51 92 Nasal Cannula 6.0 Humidified Oxygen 12/11/16 15:00 91 24 91/57 91 90/46 12/11/16 15:00 92 22 92 Nasal Cannula 6.0 12/11/16 14:00 93 21 95/55 90 99/49 12/11/16 13:00 95 21 105/63 89 106/47 12/11/16 12:03 95 20 92 133/64 12/11/16 12:02 92 Nasal Cannula 6.0 12/11/16 12:00 36.8 92 21 114/58 91 Nasal Cannula 6.0 12/11/16 11:51 Nasal Cannula 12/11/16 11:51 92 22 92 Nasal Cannula 6.0 12/11/16 11:00 91 24 93 123/59 12/11/16 10:00 96 24 106/71 91 113/50 12/11/16 09:00 96 27 106/64 88 112/51 12/11/16 08:03 95 24 90 Nasal Cannula 6.0 (Jennifer Alarcon PA-C) Physical Exam Notes: General: Thin, frail, cachectic, appears weak. Head: Normocephalic, atraumatic ENT: PERRL, EOMI, wearing glasses, no pharyngeal exudate, mucous membranes moist Chest: On 6 L via nonrebreather, coarse breath sounds throughout, + expiratory wheeze occasionally, pleurex catheter in left chest wall, surrounding area is free of erythema or signs of infection Cardiac: Regular rate and rhythm, no murmur, no JVD, normal peripheral pulses Abdominal: NABS x 4 quadrants, soft, nontender to palpation, no rebound, guarding or tenderness Extremities: + Left AKA, avelino intact, no signs of erythema or edema.+ right calf tender to palpation Psych: Normal mood and affect Neuro: AAO x 3 (Jennifer Alarcon PA-C) Laboratory Results Last 24 Hours Test 12/11/16 11:03 12/11/16 11:28 12/11/16 12:06 12/11/16 12:32 Heparin-PF4 Antibody Screen NEG Bedside Glucose (other) 113 mg/dl Lactic Acid Level 1.7 mmol/L Procalcitonin 0.06 ng/ml Test 12/11/16 16:29 12/11/16 18:05 12/11/16 21:17 12/11/16 23:58 Bedside Glucose 109 mg/dl 227 mg/dl Lactic Acid Level 2.5 mmol/L 2.5 mmol/L Procalcitonin 0.16 ng/ml Test 12/12/16 05:17 12/12/16 07:52 White Blood Count 12.24 K/uL Red Blood Count 3.14 M/uL Hemoglobin 8.7 g/dL Hematocrit 28.9 % Mean Corpuscular Volume 92.0 fL Mean Corpuscular Hemoglobin 27.7 pg Mean Corpuscular Hemoglobin Concent 30.1 g/dl Platelet Count 179 K/uL Mean Platelet Volume 9.7 fL Neutrophils (%) (Auto) 88.6 % Lymphocytes (%) (Auto) 4.5 % Monocytes (%) (Auto) 6.0 % Eosinophils (%) (Auto) 0.0 % Basophils (%) (Auto) 0.2 % Neutrophils # (Auto) 10.85 K/uL Lymphocytes # (Auto) 0.55 K/uL Monocytes # (Auto) 0.73 K/uL Eosinophils # (Auto) 0.00 K/uL Basophils # (Auto) 0.02 K/uL RDW Standard Deviation 60.9 fL RDW Coefficient of Variation 18.4 % Immature Granulocyte % (Auto) 0.7 % Immature Granulocyte # (Auto) 0.09 K/uL Polychromasia 1+ Prothrombin Time 11.4 SECONDS Prothromb Time International Ratio 1.1 Activated Partial Thromboplast Time 40.9 SECONDS Partial Thromboplastin Ratio 1.6 Sodium Level 142 mmol/L Potassium Level 3.5 mmol/L Chloride Level 105 mmol/L Carbon Dioxide Level 32 mmol/L Anion Gap 5.0 mmol/L Blood Urea Nitrogen 6 mg/dl Creatinine 0.35 mg/dl Est Creatinine Clear Calc Drug Dose 138.9 ml/min Estimated GFR () 148.4 Estimated GFR (Non- 128.0 BUN/Creatinine Ratio 16.3 Random Glucose 73 mg/dl Calcium Level 7.6 mg/dl Phosphorus Level 1.6 mg/dl Magnesium Level 1.9 mg/dl Total Bilirubin 0.3 mg/dl Direct Bilirubin 0.2 mg/dl Aspartate Amino Transf (AST/SGOT) 53 U/L Alanine Aminotransferase (ALT/SGPT) 147 U/L Alkaline Phosphatase 169 U/L Total Protein 4.4 gm/dl Albumin 1.5 gm/dl (Jennifer Alarcon, SUZETTE) Assessment and Plan 71 yo M with extensive PMHx including Atrial fib and flutter s/p IVC placement, COPD, necrotic pneumonia, hyposic respiratory failure, Hx of PE, PVD, Hypothyroidism, decubitus ulcer of the left ischium and sacrum, Hx of left AKA, anal carcinoma in 2004 who presented in septic shock secondary to obstructive pneumonia. Acute hypoxia respiratory failure Sepsis secondary to obstructive/necrotizing pneumonia - ICU - spoke with Dr. Nesbitt at bedside with plan - Maintained on norepinephrine with MAP>60 - Reduced fluids with Normosol @ 70mL/hr to avoid overload - Also with hx of COPD and severe emphysema so O2 sats titrated to 88-92% - ID consulted- for now will continue on linezolid and zosyn (day #4), received 1 dose of vanc - will plan to d/c IV abx today and continue on PO Augmentin for 6 more days to cover with a 10 day course - BCx are preliminary NGTD, pleural fluid studies are still in process - WBC 12.24 with left shift - Supportive treatment with incentive spirometry, flutter- pt does not ambulated due to recent left AKA and health, he is too weak/fatigued. - CT chest 12/09 initially showed: Moderate left pleural effusion with extensive left lower lobe airspace opacity which favors pneumonia. Apparent 3.6 x 3 cm focus of fluid within the central aspect of this consolidated lung raises the possibility of a necrotizing pneumonia/abscess. Left sided pleural effusion - Pleurex catheter placed by Dr. Jaramillo on 12/09 - plans for all pleural fluid to be sent to lab for cytology as there is concern for malignant effusion with hx of anal carcinoma in 2004- appreciate thoracic med recs - likely malignant with cells on pleural fluid positive 1x for malignancy, awaiting other 2 cytology reports. - Studies pending including culture, fungal, and AFB - Pt will need pleurex catheter drainage supplies at the time of discharge- drainage PRN for shortness of breath as an outpatient. - Pt will need follow up with heme/onc within 2-4 weeks for palliative recommendations- discussion of possible bronchoscopy was held while he was an inpatient, decided that this would pose more risk than benefit so was elected not to be done. Right Lower extremity Pain - U/S on 12/10 showed superficial popliteal DVT so pt was placed on Lovenox 50 mg BID per dosing per weight. - continue at time of discharge Acute on Chronic COPD - Solu-medrol 40 mg BID now- started taper down on 12/11 - will switch over to oral prednisone 40 mg BID and plan for long taper of each dose x at least 3 days ,, this will take approximately 3 weeks to complete - DuoNebs QID an Q2H prn Acute Transaminitis secondary to shock liver - Follow LFTs, trending downward and improving - Hepatits panel was negative EDDIE - Resolved with aggressive fluid resuscitation with Cr.= 0.35 Elevated Glucose - Continue on Lantus 5 U BID only when glucose exceeds 140, if less than this do not administerd insulin, --- cont with ISS, hypoglycemic ppx on board, can back this off as steriod tapers - Hgb A1C= 6.1 in September 2016, no need to repeat. Hypophosphatemia - Decreased at 1.6, replaced this morning Elevated Troponin - Likely secondary to demand ischemia associated with septic shock - Resolved Atrial Fibrillation - Cont amiodarone 200 mcg PO BID Hypothyroidism: Cont levothyroxine 225 mcg daily Ileus: - CT abd/pelvis showing dilated bowel loops likely determinate of ileus, resolving now, allowed a clear liquid diet - Pt with c/o LUQ pain, monitor with abdominal checks, abd nondistended and soft today Sacral decubitus ulceration - Turn and repo Q2H - Wound care consultation - Possible recurrence of malignancy with hx of anal carcinoma Goals of Care: Pt wished to remain alive to see his daughter get on January 02. Long discussion was held between the ICU team and patient yesterday noting he does not want invasive testing but does not want hospice care at this time. Lines: Right IJ catheter Left pleurex catheter IV x 2 sites GI ppx: Pantoprazole 40 mg IV BID DVT ppx: Lovenox 60 mg subq Q12H CODE STATUS: FULL CODE Disposition: From [facility], likely discharged there today from the ICU. If unable to be discharged directly from the ICU then will go to stepdown care in telemetry unit later today. (Jennifer Alarcon, SUZETTE)
[2016-12-12] MEDS: INSULIN ASPART 100 UNITS/ML 3 ML PEN SC SCH ×3 (08:13→16:00)
[2016-12-12] MEDS: INSULIN GLARGINE SOLOSTAR 100 UNITS/ML 3 ML PEN SC SCH (08:13)
[2016-12-12] MEDS: NORMOSOL R 1,000 ML IV SCH (08:13)
[2016-12-12] MEDS ORDERED: AMOXICILLIN/CLAVULANATE TAB 875 MG TAB PO ONE (10:00)
--- NOTE | 2016-12-12 10:24 | Pharmacy Progress Note ---
Glycemic Control: Progress Nt Date of Service December 12, 2016. Scope Glycemic Pharmacist consulted by Rupert Waddell on 12/09/16 for glycemic control and to write orders per [facility] inpatient glycemic control protocol. Objective Accuchecks BSG (last 24hrs): Test 12/11/16 16:29 12/11/16 21:17 12/12/16 05:17 Bedside Glucose 109 mg/dl (70-99) 227 mg/dl (70-99) Random Glucose 73 mg/dl (70-99) Laboratory Data (last 24hrs) Test 12/12/16 05:17 Anion Gap 5.0 mmol/L BUN/Creatinine Ratio 16.3 Blood Urea Nitrogen 6 mg/dl Creatinine 0.35 mg/dl Potassium Level 3.5 mmol/L Sodium Level 142 mmol/L White Blood Count 12.24 K/uL Red Blood Count 3.14 M/uL Hemoglobin 8.7 g/dL Hematocrit 28.9 % Mean Corpuscular Volume 92.0 fL Mean Corpuscular Hemoglobin 27.7 pg Mean Corpuscular Hemoglobin Concent 30.1 g/dl Platelet Count 179 K/uL Mean Platelet Volume 9.7 fL Neutrophils (%) (Auto) 88.6 % Lymphocytes (%) (Auto) 4.5 % Monocytes (%) (Auto) 6.0 % Eosinophils (%) (Auto) 0.0 % Basophils (%) (Auto) 0.2 % Neutrophils # (Auto) 10.85 K/uL Lymphocytes # (Auto) 0.55 K/uL Monocytes # (Auto) 0.73 K/uL Eosinophils # (Auto) 0.00 K/uL Basophils # (Auto) 0.02 K/uL Recent Pertinent Medications Outpatient Anti-diabetic Regimen: * n/a * A1c = 6.1 % 09/2016 The patient is currently receiving: * Basal insulin: * Lantus SQ every 12 hours - 0 units if BSG is below 140mg/dL - 5 units if BSg is 140mg/dL or above * Bolus Insulin: * NovoLog SQ ACHS - Goal Range: Low 140 mg/dL - High 180 mg/dL - Correction Factor: 35 mg/dL/unit - Carb ratio of 1 unit per 15 grams CHO consumed Risk Factors for Insulin Resistance: * Steroids: Solu-Medrol 40mg IV q8H --> Solu-Medrol 40mg IV q12H * Infection: Zyvox and Zosyn IV --> Augmentin PO * IVF: Normosol R * Diet: Regular, liquid. refused breakfast this AM (did take meds with tea) Assessment & Plan ASSESSMENT: 12/11/16 * Pre-diabetic patient admitted 12/09/16 with hypotension, hypoxia, presumed sepsis - likely source pulmonary (PNX, COPD exac) * The glycemic service has followed this patient on prior admission - and usually he is fairly insulin sensitive, but has required an insulin drip while ventilated, infected and on steroids -- even so, while on the insulin drip his total daily requirements were still less than 20 units. * As of this morning on rounds, he remains on pressor support and continues on IV steroids * Plan will be to wean levo off if possible and change solumedrol to 40 mg IV BID starting tomorrow * Yesterday BSGs were well controlled ranging 123 - 208 mg/dL (highest being fasting before basal initiated) * I see no evidence to change regimen over the next 24 hours * I anticipate needing to loosen coverage due to decrease in steroids tomorrow (discussed with weekend pharmacist) 12/12/16 * A total of 12 units of insulin was administered on 12/11 with BSGs ranging from 106-227mg/dL * Fasting BSG today below goal range * for these two reasons, we will hold further Lantus dosing, resume if BSG > 180mg/dL * Steroids being tapered from q8H-->q12H * PO intake sporadic * hypoglycemic pre-lunch * for these three reasons, expect reduction in overall insulin needs --> will empirically loosen NovoLog parameters, remove carb coverage PLAN FOR INPATIENT GLYCEMIC CONTROL: * Basal insulin: * Discontinue at this time * Bolus insulin: * NovoLog SQ AC and HS - Correction factor of 40 mg/dl/unit - Carb ratio forgo at this time - Continuing goal range of Low 140 mg/dL - High 180 mg/dL * Reassess insulin doses each time steroid dose is changed. RECOMMENDATIONS FOR DISCHARGE: * Likely, Mr. Crook will not require diabetic medications at discharge as he did not require any prior to admission and his needs are minimal with IV steroids. * Please note that the plan above was derived based on current level of insulin resistance and hospital stress. These recommendations are appropriate for inpatient admission only. Plan of care upon discharge will need to be reassessed to avoid potential outpatient hypo/hyperglycemia. Thank you.
[2016-12-12] MEDS: ENOXAPARIN 60 MG/0.6 ML SYR SQ SCH (11:55)
[2016-12-12] MEDS: PANTOprazole INJ 40 MG in SYRINGE 0 ML IV SCH (11:55)
[2016-12-12] MEDS: MIDODRINE 10 MG TAB PO SCH ×2 (11:58→16:10)
--- NOTE | 2016-12-12 12:40 | SURGERY PROGRESS NOTE ---
DATE: 12/12/2016 DATE: 12/12/2016. Mr. Crook is seen today. He still is quite emaciated, quite weak. We drained between 600 and 650 mL from his left PleurX catheter. His x-ray has not really changed. On 6 liters he goes anywhere from 87 to 93%. He does not appear short of breath. Again, I suspect this patient probably has a carcinoma. He is wasting away. There is a discussion about taking him back on hospice to [facility]. The patient has requested no further aggressive workup be done. I believe the next step if we were to be aggressive would be to do a bronchoscopy; however, as he has stated, he does not want this, we will hold off. His PleurX catheter will need to be drained every day. We will have the results called to the office and make a determination about when to decrease the amount or to remove it altogether.
[2016-12-12] MEDS ORDERED: POTASSIUM PHOS 3 MMOL/1 ML INFUSION IV STA (13:07)
--- NOTE | 2016-12-12 13:32 | Critical Care Progress Note ---
Critical Care Progress Note Date of Service December 12, 2016. ICU Day ICU Day Number: [address] Nesbitt Subjective Patient notes that breathing is slightly improved today Does state that he did have one bout of cough this morning No other acute issues overnight Pleurx catheter continues to drain straw-colored fluid Objective General Appearance: comfortable, cachetic Head: normocephalic, atraumatic Eyes: PERRLA, EOMI ENT: normal ear exam, normal nasal exam, normal mouth exam Neck: trachea midline, no stridor, supple; CVC in place, overlying skin appears dry and intact Respiratory: coarse breath sounds bilaterally with expiratory wheezing bilaterally; improved from 24 hours prior Pleurx catheter in place; incisions appear normal; straw-colored fluid Cardiovasular: regular rate, S1 and S2 no added sounds or murmurs Abdomen: non tender, normal bowel sounds, no rebound Back: other (left buttock decubitus ulcer) Lower Extremities: no edema, other (AKA of left lower extremity) Neuro: alert, oriented x 3, CAM-ICU negative Psychiatric: normal affect, normal speech, purposeful responsiveness to commands Current SOFA Score SOFA Score Response (Comments) Value Platelets (x10) > 150 0 Bilirubin (mg/dL) < 1.2 0 [place] Coma Score 15 0 Level of Hypotension MAP less than 70 1 Creatinine (mg/dL) < 1.2 0 Total 1 Assessment & Plan (1) Necrotic pneumonia (2) Decubitus ulcer of left buttock (3) Acute kidney injury (4) Protein calorie malnutrition (5) History of left above knee amputation (6) History of pulmonary embolism (7) Decubital ulcer (8) Presence of IVC filter (9) Peripheral arterial disease (10) Atrial fibrillation and flutter (11) Sepsis (12) COPD (chronic obstructive pulmonary disease) (13) PVD (peripheral vascular disease) (14) Hypotension (15) Hypothyroidism (16) History of anal cancer This is a 71 year old patient, inmate at [facility], with acute problem list as noted above. The patient likely has underlying lung malignancy, primary versus metastatic still unclear. We have discussed the most likely diagnosis. The patient stated that his wishes to be able to survive past January 02 when his daughter is getting . Discussed with care coordination, and hospice services can be done back at [facility]. From cardiac and respiratory standpoint, the patient stabilized Our plan for him is as follows: NEUROLOGICAL - GCS: 15 - CAM-ICU negative Pain is well controlled - Continues to have mild left subcostal pain --> Likel 2/2 pleural irritation from Pleurx, or irritation from necrotic mass - Dilaudid 0.5 mg q 2 hours PRN for pain Chronic neuropathy - Continue nortriptyline Anxiety - Ativan when necessary CARDIOVASCULAR Septic Shock, Hypotension - Levothroid infusion has been discontinued; the patient is maintaining his own blood pressure - We will add midodrine 5 mg 3 times a day for additional blood pressure support in the outpatient setting Given small body habitus, his goal MAP can be 60 - Discontinue all IV fluids, and encourage by mouth intake - Discontinue both central line and arterial line today Atrial Fibrillation - Sinus rhythm and Currently Rate controlled - Continue Amiodarone - Resume it as titrated; again goal map greater than 60 RESPIRATORY Acute Hypoxemic Respiratory Distress - Secondary to obstructive pneumonia - Remains on 6 L by nasal cannula; Goal saturations 88-92%, given history of COPD - Titrate to baseline 3 L if the patient can tolerate; unfortunately with the extensive necrotic lesion on the left lung, 6 L may be his new baseline Left Sided PNA with Left Pleural Effusion - Continues to drain straw-colored fluid - Pleural fluid sent for cytology today; although the samples of been negative for malignant cells Acute on Chronic COPD - Continue Solu-Medrol 40 mg twice a day IV today Tomorrow,the patient can start a low by mouth Taper, with increment dose changes every 3 days - DuoNeb when necessary while admitted - Can resume all home inhalers at discharge - Continue Mucinex GASTROINTESTINAL - Diet: Regular diet - GI Prophylaxis: Protonix 40 mg by mouth daily, can be stopped at discharge Acute Transaminitis - Continues to resolve - Likely secondary to shock liver from initial septic presentation, which is now resolved - All hepatitis serologies are negative 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; to whether lung mass may be recurrence versus new primary malignancy RENAL//ENDOCRINE - Fluid Balance Cumulatively + 6L 24-hour net -500 mL Meeting urine output goal of >= 0.5 ml/kg/hr Acute Kidney Injury - Resolved: Creatinine currently 0.35 - Discontinue IV fluids as the patient is able to take PO Hypophosphatemia - Phos 1.6 today; K3.7 yesterday; both remain low today at 1.6 and 3.5 respectively - Will administer an additional 24 mmol K-Phos HEMATOLOGY/INFECTIOUS DISEASE - Afebril, mild leukocytosis at 12, likely secondary to steroids Anemia - Hemoglobin/hematocrit 8.7/28.9 ; stable; most likely an anemia of chronic disease secondary to consumptive malignancy - Remains stable Sepsis 2/2 Necrotic PNA - Pro-calcitonin 0.05; lactate 1.4 - Discontinue Zosyn and Linezolid; transition to Augmentin for an additional 6 days - Antibiotics: Continue Zosyn and linezolid - Blood cultures from 10 negative; fungal cultures from 10 negative; Gram stain and culture of pleural fluid negative; pleural fluid negative for acid- fast bacilli - ID recommendations are appreciated History of DVT - Patient arrived on Lovenox 60 twice a day; this was discontinued due to EDDIE which is now resolved - Patient is currently on Lovenox 50 mg twice a day; we are awaiting a repeat factor X A level to determine whether this is a suitable regimen for him in the outpatient setting Right superficial popliteal DVT - As noted from lower tool planer set up operator ultrasound dated yesterday - Unfortunately is unclear as to whether this is an acute or subacute DVT - Patient is currently on therapeutic Lovenox Thrombocytopenia - Plate was decreased slightly to 179; again likely secondary to chronic disease and consumptive malignancy; no evidence of overt bleeding - HIT screen negative, the patient is safe to continue Lovenox in the outpatient setting LINES/IV ACCESS - Discontinue central line - Discontinue arterial line - Right 18-gauge - Left 20-gauge CODE STATUS - Full Code DISPOSITION - OT/PT: ordered - The patient is stable for transfer out of the ICU Resident Physician Supervision Note: Dr. Moore was resident physician during care of patient. I separately evaluated patient and did history and exam. I discussed the case with the resident and generally agree with the findings and plan. Hemodynamically stable off pressors for greater than 24 hours. Further care can be continued at [facility]. Patient forgoing further invasive work-up at this time, goals of care are to be present at his daughters wedding on January 02. Documented By: Uzair Nesbitt DO Consults & Procedures Consultants: CT surgery Hematology/Oncology Procedures: CHEST CT WITH CONTRAST CT DOSE: 224.73 mGy.cm HISTORY: Lung mass query left lung mass TECHNIQUE: Multiaxial CT images of the chest were performed following the intravenous administration of contrast. COMPARISON: 12/09/2016 FINDINGS: Interval placement of a left basilar drainage catheter. Persistent consolidative change left lower lobe. Unchanging central area of necrosis measuring 3.3 x 2.5 cm. Enlarged right hilar node measuring 1.8 cm. Small left pleural effusion unchanged and are slightly diminished as compared to the prior study. Slightly progressive right basilar consolidative change. Interval development of bilateral parenchymal infiltrates and or progression of bilateral parenchymal infiltrates in the upper lung regions bilaterally as well as superior segments of the right as well as left lower lobes. Probable significant subcarinal nodes. Mild stable cardiomegaly. IMPRESSION: 1. Mildly progressive bilateral parenchymal infiltrative change, versus atypical components of respiratory distress. 2. Unchanging left lower lobe consolidative change with a central area of necrosis. 3. Right hilar, left hilar and mediastinal adenopathy similar as compared to the prior exam. 4. Interval placement of a left basilar drainage catheter with a slight decrease in volume of a left pleural effusion Electronically signed by: Domo Lucas M.D. 12/11/2016 10:39 AM Dictated Date/Time: 12/11/2016 10:30 AM RIGHT LOWER EXTREMITY VENOUS DOPPLER CLINICAL HISTORY: Hypoxia. Sepsis. COMPARISON STUDY: Bilateral lower extremity venous Doppler October 18, 2016. TECHNIQUE: Sonography of the deep venous system of the right lower extremity was performed. Compression and augmentation were evaluated. FINDINGS: The common femoral, superficial femoral and popliteal veins were compressible. Augmentation was normal. Flow was shown within the deep calf vessels. Note was made of occlusive thrombus within a superficial vein within the right popliteal fossa. A portion of the right femoral vein was not well evaluated due to overlying tape. IMPRESSION: 1. No evidence of deep venous thrombus within the right lower extremity. 2. Occlusive superficial thrombus within a superficial vein of the right popliteal fossa. Electronically signed by: Everton Merida M.D. 12/10/2016 4:58 PM Dictated Date/Time: 12/10/2016 4:56 PM Data Medications: Current Inpatient Medications Medications (Trade) Dose Ordered Sig/Malcolm Route Start Time Stop Time Status Last Admin Dose Admin Lorazepam (Ativan Tab) 1 mg Q6H PRN PO 12/09/16 14:45 01/08/17 14:44 Nitroglycerin (Nitrostat Tab) 0.4 mg UD PRN SL 12/09/16 14:45 01/08/17 14:44 Al Hydrox/Mg Hydrox/Simethicone (Maalox Max Susp) 15 ml Q4H PRN PO 12/09/16 14:45 01/08/17 14:44 Magnesium Hydroxide (Milk Of Magnesia Susp) 30 ml Q12H PRN PO 12/09/16 14:45 01/08/17 14:44 Ondansetron HCl (Zofran Inj) 4 mg Q6H PRN IV 12/09/16 14:45 01/08/17 14:44 Albuterol/ Ipratropium (Duoneb) 3 ml QIDR INH 12/09/16 16:00 01/08/17 15:59 12/12/16 11:25 3 ML Albuterol (Ventolin Hfa Inhaler) 2 puffs QID PRN INH 12/09/16 14:45 01/08/17 14:44 Amiodarone HCl (Cordarone Tab) 200 mg BID PO 12/09/16 21:00 01/08/17 20:59 12/12/16 07:57 200 MG Levothyroxine Sodium (Synthroid Tab) 225 mcg DAILYBB PO 12/10/16 06:00 01/09/17 06:59 12/12/16 06:20 225 MCG Loperamide HCl (Imodium Cap) 2 mg BID PO 12/09/16 21:00 01/08/17 20:59 12/12/16 07:57 2 MG Metoclopramide HCl (Reglan Tab) 5 mg AC PO 12/09/16 16:00 01/08/17 15:59 12/11/16 16:51 5 MG Nortriptyline HCl (Pamelor Cap) 10 mg HS PO 12/09/16 21:00 01/08/17 20:59 12/11/16 21:28 10 MG Ondansetron HCl (Zofran Tab) 8 mg TID PRN PO 12/09/16 14:45 01/08/17 14:44 Miscellaneous Information (Order Awaiting Action) 1 ea QS N/A 12/10/16 00:00 01/09/17 00:00 Future Hold Miscellaneous Information (Order Awaiting Action) 1 ea QS N/A 12/10/16 00:00 01/09/17 00:00 Future Hold Docusate Sodium (coLACE CAP) 200 mg DAILY PRN PO 12/09/16 17:00 01/08/17 16:59 Ferrous Gluconate (Ferrous Gluconate Tab) 324 mg BIDM PO 12/09/16 17:30 01/08/17 17:29 12/12/16 07:55 324 MG Guaifenesin (Organidin Nr Tab) 800 mg TID PO 12/09/16 21:00 01/08/17 20:59 12/12/16 07:57 800 MG Hydrocortisone (Hydrocortisone 2.5% Crm) 1 appln TID PRN EXT 12/09/16 17:00 01/08/17 16:59 Multi-Ingredient Ointment 1 gm 1 gm PRN PRN EXT 12/09/16 17:15 01/08/17 17:14 Parenteral Electrolyte Solution 1,000 ml @ 70 mls/hr [id number] IV 12/09/16 17:30 01/08/17 17:29 12/12/16 08:13 70 MLS/HR Pantoprazole Sodium/Syringe (Protonix Inj/ Syringe) 10 ml @ 5 mls/min DAILY@1100 IV 12/10/16 11:00 01/09/17 10:59 12/12/16 11:55 5 MLS/MIN Miscellaneous Information (Consult Glycemic Management Pharmacy) 1 ea UD PRN N/A 12/09/16 21:45 01/08/17 21:44 Insulin Aspart (novoLOG ASPART) SLIDING SCALE ACHS SC 12/09/16 22:00 01/08/17 21:59 12/11/16 21:31 2 UNITS Glucose (Glucose 40% Gel) 15-30 GRAMS 15 GRAMS... UD PRN PO 12/09/16 21:45 01/08/17 21:44 Glucose (Glucose Chew Tab) 4-8 Tablets 4 Tabl... UD PRN PO 12/09/16 21:45 01/08/17 21:44 Dextrose (Dextrose 50% 50ML Syringe) 25-50ML OF 50% DW IV FOR... UD PRN IV 12/09/16 21:45 01/08/17 21:44 12/12/16 12:14 25 ML Glucagon (Glucagon Inj) 1 mg UD PRN SQ 12/09/16 21:45 01/08/17 21:44 Heparin Sodium (Porcine) (Heparin 10 Unit/ ml 5 ml Flush) 5 ml PRN PRN FLUSH 12/10/16 00:45 01/09/17 00:44 Enoxaparin Sodium (Lovenox Inj) 50 mg Q12H SQ 12/10/16 11:00 01/09/17 10:59 12/12/16 11:55 50 MG Hydromorphone HCl 0.5 mg 0.5 mg Q2H PRN IV 12/10/16 22:00 12/24/16 21:59 12/11/16 22:28 0.5 MG Norepinephrine Bitartrate/ Dextrose (Levophed Inj/ D5W 500ml) 508 ml @ 0 mls/hr Q0M PRN IV 12/11/16 10:30 01/10/17 10:29 Ioversol 100 ml 100 ml UD PRN IV 12/11/16 10:30 12/15/16 10:29 Methylprednisolone Sodium Succinate/ Syringe (Solu-Medrol IV/ Syringe) 0.64 ml @ 1.5 mls/min BID@0800,2000 IV 12/12/16 08:00 01/11/17 07:59 12/12/16 08:01 1.5 MLS/MIN Midodrine (Proamatine Tab) 5 mg TID@ PO 12/12/16 12:00 01/11/17 11:59 12/12/16 11:58 5 MG Amoxicillin/ Clavulanate Potassium (Augmentin Tab) 875 mg BIDM PO 12/12/16 16:30 12/17/16 16:29 I & O: 24-Hour Column 12/12/16 08:00 Intake Total 4560 ml Output Total 2550 ml Balance 2010 ml Vital Signs: Date Time Temp Pulse Resp B/P Pulse Ox O2 Delivery O2 Flow Rate FiO2 12/12/16 11:25 94 22 96 Diffusion Mask 9.0 12/12/16 07:40 87 Nasal Cannula 6.0 Humidified Oxygen 12/12/16 07:25 94 22 91 Nasal Cannula 6.0 12/12/16 04:49 92 Nasal Cannula 6.0 Humidified Oxygen 12/12/16 00:37 92 Nasal Cannula 6.0 Humidified Oxygen 12/11/16 20:17 93 22 93 Nasal Cannula 6.0 12/11/16 20:08 92 Nasal Cannula 6.0 Humidified Oxygen 12/11/16 20:00 36.8 91 28 91/59 92 Nasal Cannula 6.0 Humidified Oxygen 12/11/16 19:30 93 21 88/53 91 Nasal Cannula 6.0 Humidified Oxygen 12/11/16 19:00 93 21 90/53 91 Nasal Cannula 6.0 Humidified Oxygen 12/11/16 17:00 96 25 91/52 90 100/50 12/11/16 16:00 94 23 88/55 85 91/45 12/11/16 16:00 91 Nasal Cannula 6.0 Humidified Oxygen 12/11/16 16:00 96 24 82/51 92 Nasal Cannula 6.0 Humidified Oxygen 12/11/16 15:00 91 24 91/57 91 90/46 12/11/16 15:00 92 22 92 Nasal Cannula 6.0 12/11/16 14:00 93 21 95/55 90 99/49 Laboratory Results: Last 24 Hours Test 12/11/16 16:29 12/11/16 18:05 12/11/16 21:17 12/11/16 23:58 Bedside Glucose 109 mg/dl 227 mg/dl Lactic Acid Level 2.5 mmol/L 2.5 mmol/L Procalcitonin 0.16 ng/ml Test 12/12/16 05:17 12/12/16 07:52 12/12/16 11:41 White Blood Count 12.24 K/uL Red Blood Count 3.14 M/uL Hemoglobin 8.7 g/dL Hematocrit 28.9 % Mean Corpuscular Volume 92.0 fL Mean Corpuscular Hemoglobin 27.7 pg Mean Corpuscular Hemoglobin Concent 30.1 g/dl Platelet Count 179 K/uL Mean Platelet Volume 9.7 fL Neutrophils (%) (Auto) 88.6 % Lymphocytes (%) (Auto) 4.5 % Monocytes (%) (Auto) 6.0 % Eosinophils (%) (Auto) 0.0 % Basophils (%) (Auto) 0.2 % Neutrophils # (Auto) 10.85 K/uL Lymphocytes # (Auto) 0.55 K/uL Monocytes # (Auto) 0.73 K/uL Eosinophils # (Auto) 0.00 K/uL Basophils # (Auto) 0.02 K/uL RDW Standard Deviation 60.9 fL RDW Coefficient of Variation 18.4 % Immature Granulocyte % (Auto) 0.7 % Immature Granulocyte # (Auto) 0.09 K/uL Polychromasia 1+ Prothrombin Time 11.4 SECONDS Prothromb Time International Ratio 1.1 Activated Partial Thromboplast Time 40.9 SECONDS Partial Thromboplastin Ratio 1.6 Sodium Level 142 mmol/L Potassium Level 3.5 mmol/L Chloride Level 105 mmol/L Carbon Dioxide Level 32 mmol/L Anion Gap 5.0 mmol/L Blood Urea Nitrogen 6 mg/dl Creatinine 0.35 mg/dl Est Creatinine Clear Calc Drug Dose 138.9 ml/min Estimated GFR () 148.4 Estimated GFR (Non- 128.0 BUN/Creatinine Ratio 16.3 Random Glucose 73 mg/dl Calcium Level 7.6 mg/dl Phosphorus Level 1.6 mg/dl Magnesium Level 1.9 mg/dl Total Bilirubin 0.3 mg/dl Direct Bilirubin 0.2 mg/dl Aspartate Amino Transf (AST/SGOT) 53 U/L Alanine Aminotransferase (ALT/SGPT) 147 U/L Alkaline Phosphatase 169 U/L Total Protein 4.4 gm/dl Albumin 1.5 gm/dl Lactic Acid Level 1.4 mmol/L Procalcitonin 0.05 ng/ml Bedside Glucose 67 mg/dl Problem Qualifiers (1) Decubitus ulcer of left buttock: Pressure ulcer stage: stage 2 Qualified Codes: L89.322 - Pressure ulcer of left buttock, stage 2
[2016-12-12] MEDS ORDERED: POTASSIUM PHOSPHATE INJ 24 MMOL in SODIUM CHLORIDE 0.9% 500ML 500 ML IV SCH (14:00)
[2016-12-12] MEDS ORDERED: LVNIS60 SQ (14:37)
[2016-12-12] MEDS ORDERED: PRED10TA PO ×2 (14:37→23:07)
[2016-12-12] MEDS ORDERED: IPRASOL4 INH ×2 (14:37→23:11)
[2016-12-12] MEDS ORDERED: AMOX1TAB43 PO (14:37)
[2016-12-12] MEDS ORDERED: PRMT10 PO (14:37)
[2016-12-12] MEDS ORDERED: NURSING VERBAL MED ORDER ONE (14:45)
--- NOTE | 2016-12-12 14:52 | Discharge Instructions ---
Discharge Instructions Date of Service December 12, 2016. Admission Reason for Admission: Hypoxia, Pna, Sepsis Discharge Discharge Diagnosis / Problem: Sepsis secondary to pneumonia Discharge Goals Goal(s): Decrease discomfort, Improve function, Increase independence, Improve disease control Activity Recommendations Activity Limitations: per Instructions/Follow-up section Lifting Limitations: no more than 10 pounds Exercise/Sports Limitations: rest today Shower/Bathe: no limitations (with assistance) Driving or Machine Use: DO NOT DRIVE . Instructions / Follow-Up Instructions / Follow-Up You were admitted to [facility] with sepsis secondary to necrotizing pneumonia, hypoxic respiratory failure, acute kidney injury and acute on chronic COPD exacerbation. During your stay here you were treated with intravenous antibiotics, vasopressors to maintain your blood pressure while you were septic, respiratory treatments and other supportive care. Acute respiratory failure is likely secondary to malignancy, i.e. lung cancer. You had a pleurex catheter placed in the the left chest wall as you had a pleural effusion(fluid in the lung cavity) which is likely due to malignancy ( cancer) although this is not known for sure at this time. Cultures of the fluid from your lung has been sent to the pathology lab to be analyzed. You will get results from this in a few days. Please discuss this with the physician at [facility] and to go over results. You have been discharged with a Pleurx catheter drainage kit. Healthcare providers at your facility will need to drain fluid out of the lung on a daily basis for you. For COPD exacerbation: Continue taking prednisone as follows: Takes 4 tablets twice daily 3 days, Then take 3 tablets twice daily 3 days Then take 4 tablets once a day 3 days Then take 3 tablets once daily 3 days Then take 2 tablets once a day 3 days Then take 1 tablet once a day 3 days then stop - an 18 day course of prednisone taper. Finish on 12/30/2016. For pneumonia: Continue taking Antibiotics as prescribed: Augmentin 6 more days, this will complete a 7 day course of therapy for pneumonia. Right DVT: You were diagnosed with a right lower extremity DVT (blood clot) - continue taking Lovenox prescribed. Blood pressure: - You've been started on medication Chlamydia during help with the feeling of lightheadedness, please continue to take as prescribed. - Healthcare provider at [facility] should maintain a MAP>60 Follow-up You should follow up with hematology/oncology within 1-2 weeks. Please call the hospital to schedule an appointment. Follow up with your Primary Care Provider at [facility] within 24-48 hours of arrival. Current Hospital Diet Patient's current hospital diet: Regular Diet Discharge Diet Recommended Diet: Regular Diet Procedures Procedures Performed: Left pleural catheter insertion Pending Studies Studies pending at discharge: yes List of pending studies: Cytology pleural fluid Laboratory Results Hemoglobin A1c Test 10/22/16 05:38 Range/Units Estimated Average Glucose 128 mg/dl Hemoglobin A1c 6.1 H 4.5-5.6 % Medical Emergencies . Who to Call and When: Medical Emergencies: If at any time you feel your situation is an emergency, please call 911 immediately. . Non-Emergent Contact Non-Emergency issues call your: Primary Care Provider, Oncologist Call Non-Emergent contact if: you have a fever, temperature is above 100.5, your pain is not controlled, your pain is worsening, you have any medication questions . Past History Medical & Surgical History: (1) PNA (pneumonia) (2) Hypoxia (3) Sepsis (4) Decubital ulcer (5) Necrotic pneumonia (6) Acute kidney injury (7) History of anal cancer (8) Afib (9) COPD (chronic obstructive pulmonary disease) (10) Hypotension . "Provider Documentation" section prepared by Kaleigh Alarcon. . VTE Core Measure Inpt VTE Proph given/why not?: Enoxaparin (Lovenox)SQ, T.E.D. Stockings, SCD's
[2016-12-12] MEDS ORDERED: POT PHOSPHATE MONOBASIC W/ SOD TAB PO STA (14:55)
--- NOTE | 2016-12-12 15:11 | Discharge Summary ---
Discharge Summary Date of Service December 12, 2016. (Jennifer Alarcon PA-C) Discharge Summary Admission Date: December 09, 2016 at 14:52 Discharge Date: December 12, 2016 Discharge Disposition: Home ([facility]) Principal Diagnosis: Acute hypoxia respiratory failure, sepsis d/t necrotizing pneumonia/lung cx Problems/Secondary Diagnoses: (1) COPD (chronic obstructive pulmonary disease) Status: Chronic Atrial fib and flutter s/p IVC placement, COPD, necrotic pneumonia, hyposic respiratory failure, Hx of PE, PVD, Hypothyroidism, decubitus ulcer of the left ischium and sacrum, Hx of left AKA, anal carcinoma in 2005 who presented in septic shock secondary to obstructive pneumonia. Immunizations: Have You Had Influenza Vaccine: Yes History of Tetanus Vaccine?: Yes History of Pneumococcal: Yes History of Hepatitis B Vaccine: Yes Procedures: CHEST ONE VIEW PORTABLE 12/06/16 IMPRESSION: 1. Persistent left lower lobe airspace opacities with a suspected subpulmonic left pleural effusion 2. Developing right lower lobe airspace opacities 3. An element of congestive failure/fluid overload must be considered. CT OF THE CHEST WITHOUT IV CONTRAST 12/06/16 IMPRESSION: 1. Moderate left pleural effusion with extensive left lower lobe airspace opacity which favors pneumonia. Apparent 3.6 x 3 cm focus of fluid within the central aspect of this consolidated lung raises the possibility of a necrotizing pneumonia/abscess. 2. Multifocal airspace opacities throughout the remainder of the lungs suggestive of pneumonia. 3. Severe emphysema. 4. Nonspecific moderate mediastinal and bilateral hilar lymphadenopathy which is similar to CT of October 18, 2016. A follow-up chest CT in 3 months is recommended. ABDOMEN AND PELVIS CT WITHOUT CONTRAST 12/09/16 IMPRESSION: 1. Left pleural effusion with left lower lobe consolidation. There is also patchy consolidation within the right lung base. This likely represents a pneumonia. 2. Multiple mildly distended gas and fluid-filled loops of large and small bowel. This likely represents an ileus. 3. Mild thickening of the descending colon, sigmoid colon, and rectum with associated submucosal fat deposition. Therefore, this favors a mild acute on chronic nonspecific colitis. 4. Bilateral nephrolithiasis. No hydronephrosis. 5. Distended gallbladder. 6. Interval left [id number] amputation. CXR 1 VIEW PORTABLE 12/09/16 IMPRESSION: Findings consistent with interstitial pulmonary edema. Center catheters. Vena cava. No evidence for pneumothorax. Pleural catheter left base with slight improvement in aeration left base. Small oil extractor shadow overlying right third rib, less likely representing a small apical pneumothorax obscured by rib detailIMPRESSION: Persistent bilateral pulmonary airspace opacities. Underlying emphysema. CXR 1 VIEW PORTABLE 12/10/16 IMPRESSION: Persistent bilateral pulmonary airspace opacities. Underlying emphysema. RIGHT LOWER EXTREMITY VENOUS DOPPLER 12/10/16 IMPRESSION: 1. No evidence of deep venous thrombus within the right lower extremity. 2. Occlusive superficial thrombus within a superficial vein of the right popliteal fossa. CHEST ONE VIEW PORTABLE 12/11/16 IMPRESSION: Slight progression in the extensive bilateral pulmonary airspace opacities CHEST CT WITH CONTRAST 12/11/16 IMPRESSION: 1. Mildly progressive bilateral parenchymal infiltrative change, versus atypical components of respiratory distress. 2. Unchanging left lower lobe consolidative change with a central area of necrosis. 3. Right hilar, left hilar and mediastinal adenopathy similar as compared to the prior exam. 4. Interval placement of a left basilar drainage catheter with a slight decrease in volume of a left pleural effusion Consultations: [facility] Nephrology Wound Thoracic Medicine Vascular Hematology/oncology (Jennifer Alarcon PA-C) Medication Reconciliation New Medications: Prednisone (Prednisone) 10 Mg Tab 10 MG PO UD for 18 Days, #72 TAB Amoxicillin & Pot Clavulanate (Amoxicillin/Clavulanate P) 1 Tab Tab 875 MG PO BIDM for 6 Days, #12 TAB Enoxaparin (Enoxaparin Sodium) 60 Mg/0.6 Ml Inj 50 MG SQ Q12H for 30 Days, #60 DOSE Ipratropium-Albuterol (Duoneb) 3 Ml Nebu 3 ML INH QIDR for 30 Days, #120 DOSE Midodrine (Midodrine HCl) 10 Mg Tab 5 MG PO TID@08,12,17 for 30 Days, #90 TAB Continued Medications: Acetaminophen (Tylenol) 325 Mg Tab 325 MG PO TID PRN for Pain, TAB Acetaminophen/Codeine (Tylenol W/Codeine #3) 300 Mg/30 Mg Tab 1 TAB PO Q4H WHILE AWAKE PRN for Pain, TAB Aclidinium Austin (Tudorza Pressair) 400 Mcg/Act Aer 1 PUFF INH BID Albuterol Hfa (Ventolin Hfa) 200 Puffs/03127 Mcg Aers 2 PUFFS INH QID PRN for SOB/Wheezing, INHALER Amiodarone Hcl (Cordarone) 200 Mg Tab 200 MG PO BID, TAB Ciclesonide (Alvesco) 160 Mcg/Act Aer 1 PUFF PO BID Control Gel Formula Dressing (Duoderm Cgf) 1 Mis Mis 1 PATCH TD [id number] TAKE/PERFORM ONCE DAILY. CHANGE EVERY 3 DAYS AND NEEDED Diphenhydramine Hcl (Benadryl) 25 Mg Cap 50 MG PO QPM, CAP Docusate Sodium (Gnp Stool Softener) 250 Mg Cap 250 MG PO DAILY PRN for Constipation Emollient (Lubriskin) 1 Lot Lot 1 APPLN TOP BID TO RIGHT LOW EXTREMITY Ferrous Fumarate (Hemocyte) 324 Mg Tab 324 MG PO BID Guaifenesin (Guaifenesin) 400 Mg Tab 800 MG PO TID Hydrocortisone (Topical) (Hydrocortisone) 2.5 % Lot 1 APPLN TOP TID PRN for RASH Levothyroxine Sodium (Synthroid) 75 Mcg Tab 225 MCG PO DAILY, TAB 3 TABLETS DAILY Loperamide Hcl (Imodium) 2 Mg Cap 2 MG PO BID, CAP Metoclopramide Hcl (Reglan) 5 Mg Tab 5 MG PO AC, TAB Metoprolol Tartrate (Lopressor) 25 Mg Tab 12.5 MG PO BID, TAB Nortriptyline (Pamelor) 10 Mg Cap 10 MG PO HS CRUSH Nutritional Supplements (Nutritional Drink) 1 Liq Liq 1 CAN PO TIDM Omeprazole (Omeprazole) 20 Mg Tab 40 MG PO DAILY, TAB Ondansetron Hcl (Zofran) 8 Mg Tab 8 MG PO TID PRN for Nausea, TAB Zinc Oxide (Topical) (Desitin Rapid Relief) 13 % Cre 1 APPLN TOP DIRECTED APPLY TO SACRAL AREA NEEDED FOR INCONTINENCE Discontinued Medications: Enoxaparin (Lovenox) 60 Mg/0.6 Ml Inj 60 MG SQ Q12H, SYR Sulfamethoxazole-Trimethoprim (Bactrim Ds 800MG/160MG) 1 Tab Tab 1 TAB PO BID Discharge Exam Pt evaluation today including: conversation w/ patient, physical exam, chart review, lab review, review of studies Voiding: hopson catheter in place The patient was seen and examined this morning. Patient reports feeling okay this morning. Patient reports his breathing difficulty at times but overall seems improved. He had a Pleurx catheter draining this morning 400 mL out. Patient reports that her right lower extremity today, although he has already been diagnosed with a DVT in that leg. Discussion of goals of care were again briefly touched upon with the patient, he would like to make it until January 02 to see his daughter get . Additional Comments: Constitutional: No fever, sweats or chills, + fatigue Eyes: No diplopia, no worsening or blurred vision ENT: normal hearing, no trouble swallowing Respiratory: + cough, +sputum occasionally, +dyspnea on exertion but not at rest Cardiovascular: No chest pain, tightness or palpitations Abdomen: No pain, nausea, vomiting, diarrhea or constipation, hopson catheter in place Musculoskeletal: No joint pain, + right calf pain, no swelling Neurologic: No weakness, numbness/tingling Skin: No rash or itch Objective Vital Signs Date Time Temp Pulse Resp B/P Pulse Ox O2 Delivery O2 Flow Rate FiO2 12/12/16 07:25 94 22 91 Nasal Cannula 6.0 12/12/16 04:49 92 Nasal Cannula 6.0 Humidified Oxygen 12/12/16 00:37 92 Nasal Cannula 6.0 Humidified Oxygen 12/11/16 20:17 93 22 93 Nasal Cannula 6.0 12/11/16 20:08 92 Nasal Cannula 6.0 Humidified Oxygen 12/11/16 20:00 36.8 91 28 91/59 92 Nasal Cannula 6.0 Humidified Oxygen 12/11/16 19:30 93 21 88/53 91 Nasal Cannula 6.0 Humidified Oxygen 12/11/16 19:00 93 21 90/53 91 Nasal Cannula 6.0 Humidified Oxygen 12/11/16 17:00 96 25 91/52 90 100/50 12/11/16 16:00 94 23 88/55 85 91/45 12/11/16 16:00 91 Nasal Cannula 6.0 Humidified Oxygen 12/11/16 16:00 96 24 82/51 92 Nasal Cannula 6.0 Humidified Oxygen 12/11/16 15:00 91 24 91/57 91 90/46 12/11/16 15:00 92 22 92 Nasal Cannula 6.0 12/11/16 14:00 93 21 95/55 90 99/49 12/11/16 13:00 95 21 105/63 89 106/47 5/12/17 12:03 95 20 92 133/64 12/11/16 12:02 92 Nasal Cannula 6.0 12/11/16 12:00 36.8 92 21 114/58 91 Nasal Cannula 6.0 12/11/16 11:51 Nasal Cannula 12/11/16 11:51 92 22 92 Nasal Cannula 6.0 12/11/16 11:00 91 24 93 123/59 12/11/16 10:00 96 24 106/71 91 113/50 12/11/16 09:00 96 27 106/64 88 112/51 12/11/16 08:03 95 24 90 Nasal Cannula 6.0 Physical Exam Notes: General: Thin, frail, cachectic, appears weak. Head: Normocephalic, atraumatic ENT: PERRL, EOMI, wearing glasses, no pharyngeal exudate, mucous membranes moist Chest: On 6 L via nonrebreather, coarse breath sounds throughout, + expiratory wheeze occasionally, pleurex catheter in left chest wall, surrounding area is free of erythema or signs of infection Cardiac: Regular rate and rhythm, no murmur, no JVD, normal peripheral pulses Abdominal: NABS x 4 quadrants, soft, nontender to palpation, no rebound, guarding or tenderness Extremities: + Left AKA, avelino intact, no signs of erythema or edema.+ right calf tender to palpation Psych: Normal mood and affect Neuro: AAO x 3 (Jennifer Alarcon PA-C) Hospital Course H&P per Paola Schafer PA-C History of Present Illness Source: patient, clinic records, hospita's l records, other (assisted guards ) 71 y/o male, with PMHx of a.fib, COPD, hypothyroidism, PAD s/p left AKA, h/o PE s/p IVC filter on 10/20, and GERD, who presented to the ED because of worsening SOB x4 days. He is from [facility]. Patient was seen in the ED on 12/06 due to worsening SOB. It was suspected patient had acute on chronic COPD exacerbation and was discharged back to the assisted for continued management. Patient returned to the ED today because SOB continues to worsen. Patient denies cough or sputum production. He requires 3L O2 at all times. According to the assisted guards, patient has started to make gurgling sounds today. Patient denies any other complaints at this time. Additionally, patient admits to worsening decubitus ulcer. Patient states he has had this ulcer for "a long time," but it has recently become for painful. Dressed in clean dressing in ED. Patient denies any fever, chills, sweats, lightheadedness, dizziness, vision changes, CP , palpitations, edema, wheezing, cough, abdominal pain, nausea, vomiting, diarrhea, urinary symptoms, melena, numbness/tingling, weakness, muscle/joint pain, anxiety/depression, active bleeding. Physical Exam Vital Signs Date Time Temp Pulse Resp B/P Pulse Ox O2 Delivery O2 Flow Rate FiO2 12/09/16 13:54 86 22 100 Nasal Cannula 4.0 12/09/16 13:45 73/52 12/09/16 13:39 84 24 95 Nebulizer 12/09/16 13:30 79/54 12/09/16 13:24 84 20 93 Nebulizer 12/09/16 13:15 78/49 12/09/16 13:09 77 19 94 Nebulizer 12/09/16 13:06 80 18 74/49 97 Nebulizer 12/09/16 13:04 79 25 74/49 91 Nebulizer 12/09/16 12:54 78 24 100 Nasal Cannula 4.0 12/09/16 12:49 80 26 71 12/09/16 12:34 78 12/09/16 12:34 99 27 87 12/09/16 12:32 93 Nasal Cannula 3.0 12/09/16 12:32 36.7 80 12 62/39 91 Nasal Cannula 3.0 12/09/16 12:32 91 Nasal Cannula 3.0 12/09/16 12:23 62/39 General Appearance: + mild distress, + thin Head: normocephalic, atraumatic Eyes: normal inspection, PERRL ENT: hearing grossly normal Neck: supple Respiratory/Chest: no respiratory distress, no accessory muscle use, + decreased breath sounds (throughout all lung gilmore, >at lung bases ), + rhonchi (throughtout all lung g[place] ), + wheezing (expiratory wheeze throughout all lung g[place]more ) Cardiovascular: + irregularly irregular (rate controlled ) Abdomen/GI: normal bowel sounds, non tender, soft Extremities/Musculoskelatal: no calf tenderness, no pedal edema, + pertinent finding (left AKA; wound with avelino in place, no obvious erythema or drainage ) Neurologic/Psych: alert, normal mood/affect, oriented x 3 Skin: normal color, warm/dry, + pertinent finding (lesions noted to upper chest region and bilateral upper extremities ) Hospital course 71 yo M with extensive PMHx including Atrial fib and flutter s/p IVC placement, COPD, necrotic pneumonia, hyposic respiratory failure, Hx of PE, PVD, Hypothyroidism, decubitus ulcer of the left ischium and sacrum, Hx of left AKA, anal carcinoma in 2004 who presented in septic shock secondary to obstructive/ necrotizing pneumonia. Patient was evaluated by thoracic medicine, ICU, vascular, thoracic medicine, and wound care. Patient was admitted to the ICU due to septic shock, IV antibiotics (linezolid and Zosyn) were started after blood cultures were obtained, final blood cultures were negative. The patient required vasopressors to maintain a blood pressure and MAP> 60, patient was able to be titrated off vasopressors. Patient was transitioned to oral Augmentin 10 day course. Pleurx cath was placed in the left lung field by thoracic surgery and drained approximately 1 L out at the time of placement, on subsequent days in a row ~400 mL was drained out. Pleural fluid sent for cytology and on first report identified malignant cells. The second 2 cytology studies and reports are still in process and need to be followed by PCP at [facility]. LFTs trended downward and EDDIE resolved with fluid resuscitation. Patient was placed on prednisone taper. Wound was consulted for sacral decubitus ulcer. Patient will require follow-up with hematology/ oncology within 1-2 weeks to discuss palliative plans and goals of care. Acute hypoxia respiratory failure Sepsis secondary to obstructive/necrotizing pneumonia - ICU - Maintained on norepinephrine with MAP>60 - Reduced fluids with Normosol @ 70mL/hr to avoid overload - Also with hx of COPD and severe emphysema so O2 sats titrated to 88-92% - ID consulted- for now will continue on linezolid and zosyn (day #4), received 1 dose of vanc - will plan to d/c IV abx today and continue on oral Augmentin for 6 more days to cover with a 10 day course - BCx are preliminary NGTD, pleural fluid studies are still in process - WBC 12.24 with left shift - Supportive treatment with incentive spirometry, flutter- pt does not ambulated due to recent left AKA and health, he is too weak/fatigued. - CT chest 12/09 initially showed: Moderate left pleural effusion with extensive left lower lobe airspace opacity which favors pneumonia. Apparent 3.6 x 3 cm focus of fluid within the central aspect of this consolidated lung raises the possibility of a necrotizing pneumonia/abscess. Left sided pleural effusion - Pleurex catheter placed by Dr. Jaramillo on 12/09 - plans for all pleural fluid to be sent to lab for cytology as there is concern for malignant effusion with hx of anal carcinoma in 2004- appreciate thoracic med recs - likely malignant with cells on pleural fluid positive 1x for malignancy, awaiting other 2 cytology reports. - Studies pending including culture, fungal, and AFB - Pt will need pleurex catheter drainage supplies at the time of discharge- drainage PRN for shortness of breath as an outpatient. - Pt will need follow up with heme/onc within 2-4 weeks for palliative recommendations- discussion of possible bronchoscopy was held while he was an inpatient, decided that this would pose more risk than benefit so was elected not to be done. Right Lower extremity Pain - U/S on 12/10 showed superficial popliteal DVT so pt was placed on Lovenox 50 mg BID per dosing per weight. - continue at time of discharge Acute on Chronic COPD - Solu-medrol 40 mg BID now- started taper down on 12/11 - will switch over to oral prednisone 40 mg BID and plan for long taper of each dose x at least 3 days , next 18 days, will finish course on 12/30/16 - DuoNebs QID an Q2H prn Acute Transaminitis secondary to shock liver - Follow LFTs, trending downward and improving - Hepatits panel was negative EDDIE - Resolved with aggressive fluid resuscitation with Cr.= 0.35 Elevated Glucose - Continue on Lantus 5 U BID only when glucose exceeds 140, if less than this do not administerd insulin, --- cont with ISS, hypoglycemic ppx on board, can back this off as steriod tapers - Hgb A1C= 6.1 in September 2016, no need to repeat. Hypophosphatemia - Decreased at 1.6, replaced this morning Elevated Troponin - Likely secondary to demand ischemia associated with septic shock - Resolved Atrial Fibrillation - Cont amiodarone 200 mcg PO BID Hypothyroidism: Cont levothyroxine 225 mcg daily Ileus: - CT abd/pelvis showing dilated bowel loops likely determinate of ileus, resolving now, allowed a clear liquid diet - Pt with c/o LUQ pain, monitor with abdominal checks, abd nondistended and soft today Sacral decubitus ulceration - Turn and repo Q2H - Wound care consultation - Possible recurrence of malignancy with hx of anal carcinoma Goals of Care: Pt wished to remain alive to see his daughter get on January 02. Long discussion was held between the ICU team and patient yesterday noting he does not want invasive testing but does not want hospice care at this time. Lines: Right IJ catheter Left pleurex catheter IV x 2 sites GI ppx: Pantoprazole 40 mg IV BID DVT ppx: Lovenox 60 mg subq Q12H CODE STATUS: FULL CODE Disposition: From [facility], likely discharged there today from the ICU. If unable to be discharged directly from the ICU then will go to stepdown care in telemetry unit later today. Total Time Spent: Greater than 30 minutes This includes examination of the patient, discharge planning, medication reconciliation, and communication with other providers. (Jennifer Alarcon PA-C) Discharge Instructions Please refer to the electronic Patient Visit Report (Discharge Instructions) for additional information. (Jennifer Alarcon PA-C) Follow-Up Follow-up with hematology/oncology within 1-2 weeks Follow up with your Primary Care Provider [facility] refuse correction[facility] institution within 24-48 hours of arrival. (Jennifer Alarcon PA-C)
[2016-12-12] MEDS ORDERED: AMOXICILLIN/CLAVULANATE TAB 875 MG TAB PO SCH (16:30)
[2016-12-12] MEDS ORDERED: MIDO10TA PO (23:08)
[2016-12-13] MEDS ORDERED: PANTOprazole SOD 40 MG TAB PO SCH (09:00)
[2016-12-16] MEDS ORDERED: SCOP1.5D2 TD (09:33)
[2016-12-16] MEDS ORDERED: RXNS10 PO (09:33)
[2016-12-16] MEDS ORDERED: LORA-741 PO (09:33)
--- NOTE | 2016-12-29 16:06 | OPERATIVE REPORT ---
DATE OF OPERATION: 12/09/2016 PROCEDURE: Insertion of a left PleurX catheter. SURGEON: Dr. Jaramillo. ANESTHESIA: Local. SPECIFICS OF PROCEDURE: After a long discussion with the patient we elected to proceed with insertion of a PleurX catheter. Question of an empyema has been raised. The patient looks like he actually has metastatic malignancy and is quite cachectic. PROCEDURE: Under ultrasound guidance, a window was found where there was a large amount of fluid and easy to approach. The patient was prepped and draped in usual sterile fashion. After appropriate timeout 25 gauge needle with 1% Xylocaine was used to raise a skin wheal. A large bore needle was used to anesthetize the deeper subcutaneous tissues and pleura and when free flowing yellowish fluid was obtained. Guidewire was inserted with needle and needle removed. A 1 cm incision was made here. A 1 cm incision was made about 10 cm anterior after a skin wheal had been raised. A long needle was used to anesthetize the tissues between the 2 incisions and a tunneler attached to the PleurX catheter and dragged from the anterior to posterior incision and removed. An introducer sheath was slid over the guidewire, the posterior incision and the inner cannula and guidewire removed and the PleurX catheter inserted without difficulty. Two separate 3-0 silk sutures were used to close the patient's skin posteriorly and then a 3-0 silk was used to anchor the catheter to the patient's skin. Approximately a liter of fluid was drained. He tolerated it well. He is cachectic and I am quite concerned about him. I attest to the content of the Intraoperative Record and any orders documented therein. Any exceptio ns are noted below.
== END 2016-12-12 21:00 | DRG 871 ==
LOC: ENRESERVTM → ENRESERVDT → EDBD 12:19 → C.EDC 12:21 → C.MSICU 14:52
PROVIDERS: ADMIT Hospitalist; ATTEND Hospitalist
PROC: 0W9B3ZX Drainage of Left Pleural Cavity, Percutaneous Approach, Diagnostic (ICD-10-PCS; principal; 2016-12-09)
PROC: 03HY32Z Insertion of Monitoring Device into Upper Artery, Percutaneous Approach (ICD-10-PCS; 2016-12-09)
PROC: 0W9B3ZZ Drainage of Left Pleural Cavity, Percutaneous Approach (ICD-10-PCS; 2016-12-10)
PROC: 0W9B3ZZ Drainage of Left Pleural Cavity, Percutaneous Approach (ICD-10-PCS; 2016-12-11)
DX: A41.9 Sepsis, unspecified organism (principal); J85.0 Gangrene and necrosis of lung; R65.21 Severe sepsis with septic shock; J96.01 Acute respiratory failure with hypoxia; K72.00 Acute and subacute hepatic failure without coma; J91.0 Malignant pleural effusion; J44.0 Chronic obstructive pulmonary disease with (acute) lower respiratory infection; N17.9 Acute kidney failure, unspecified; C21.0 Malignant neoplasm of anus, unspecified; R64 Cachexia; Z68.1 Body mass index [BMI] 19.9 or less, adult; I82.431 Acute embolism and thrombosis of right popliteal vein; I48.92 Unspecified atrial flutter; I24.8 Other forms of acute ischemic heart disease; K56.7 Ileus, unspecified; I48.91 Unspecified atrial fibrillation; L89.151 Pressure ulcer of sacral region, stage 1; L89.891 Pressure ulcer of other site, stage 1; R73.9 Hyperglycemia, unspecified; L89.322 Pressure ulcer of left buttock, stage 2; D64.9 Anemia, unspecified; F41.9 Anxiety disorder, unspecified; E83.39 Other disorders of phosphorus metabolism; E03.9 Hypothyroidism, unspecified; I73.9 Peripheral vascular disease, unspecified; K21.9 Gastro-esophageal reflux disease without esophagitis; Z51.81 Encounter for therapeutic drug level monitoring; Z79.899 Other long term (current) drug therapy; Z79.01 Long term (current) use of anticoagulants; Z89.612 Acquired absence of left leg above knee; Z86.711 Personal history of pulmonary embolism; Z95.828 Presence of other vascular implants and grafts; Z99.81 Dependence on supplemental oxygen; Z87.891 Personal history of nicotine dependence; J44.1 Chronic obstructive pulmonary disease with (acute) exacerbation; Z51.5 Encounter for palliative care; I95.9 Hypotension, unspecified; Z79.52 Long term (current) use of systemic steroids; E87.6 Hypokalemia; L89.152 Pressure ulcer of sacral region, stage 2

== ENCOUNTER 2016-12-12 22:22 | Inpatient (IN) | payer OTHER ==
[~2016-12-12] VITALS: Ht 165.1 cm; Wt 42.6 kg
[~2016-12-12 22:22] MED LIST changes: +AMOX1TAB43 PO; +FERR324T12 PO; +HYDR2.5L TOP; +IPRASOL4 INH; +LVNIS60 SQ; +PRED10TA PO; +PRMT10 PO; +SULF800T23 PO; +ZINC1CRE3 TOP; +[UNRECOGNIZED DRUG - CODE] TD
[2016-12-12] MEDS ORDERED: METHYLPREDNISOLONE 125 MG VIAL IV STA (22:31)
[2016-12-12] MEDS ORDERED: ALBUT/IPRATROP 3MG/0.5MG NEB 3 ML VIAL INH STA (22:31)
[2016-12-12] MEDS ORDERED: PIPERACILLIN/TAZOBACTAM 4.5 GM/100ML D5W IV STA (22:48)
[2016-12-12] MEDS ORDERED: LINEZOLID / D5W 600 MG in PREMIXED IN D5W 300 ML IV STA (22:48)
[2016-12-12] MEDS ORDERED: PRED10TA PO (23:07)
[2016-12-12] MEDS ORDERED: MIDO10TA PO (23:08)
[2016-12-12] MEDS ORDERED: IPRASOL4 INH (23:11)
[2016-12-12 23:13] LABS: HEMATOCRIT 33.1 % (42-52); MEAN CELL VOLUME 91.9 fL (80-100); MEAN CORPUSCULAR HEMOGLOBIN 28.1 pg (25-34); MEAN CORPUSCULAR HGB CONC 30.5 g/dl (32-36); MEAN PLATELET VOLUME 9.9 fL (7.4-10.4); PLATELET COUNT 190 K/uL (130-400); WHITE BLOOD COUNT 11.41 K/uL (4.8-10.8)
[2016-12-12 23:21] VITALS: PULSE 103; O2SAT 94
[2016-12-12 23:22] VITALS: PULSE 103; O2SAT 94
[2016-12-12 23:25] LABS: INR 1.1 (0.9-1.1); PARTIAL THROMBOPLASTIN RATIO 1.3
[2016-12-12 23:38] LABS: BASO % 0.1 %; BASO ABS # 0.01 K/uL (0-0.2); COMPLETE YES; IG% 0.7 %; LYMPH % 0.4 %; LYMPH ABS # 0.05 K/uL (1.2-3.4); MONO % 3.6 %; NEUT % 95.2 %
[2016-12-12] MEDS ORDERED: FUROSEMIDE 40 MG/4 ML VIAL IV STA (23:42)
[2016-12-12 23:49] LABS: BUN/CREATININE RATIO 12.3 (10-20); CALCIUM 7.5 mg/dl (8.5-10.1); CREATININE 0.38 mg/dl (0.60-1.40); MAGNESIUM 1.8 mg/dl (1.8-2.4); POTASSIUM 3.4 mmol/L (3.5-5.1)
--- NOTE | 2016-12-12 23:53 | EMERGENCY ROOM VISIT NOTE ---
ED Visit Note First contact with patient: 22:26 This Patient was discussed with the physician billing assistant, RENE Hugo. The pertinent historical and physical exam findings were confirmed. I agree with the studies ordered and with the interpretations of these studies. I agree with the disposition and care plan.
[2016-12-12 23:58] LABS: ALB/GLOB RATIO 0.5 (0.9-2)
[2016-12-13] VITALS (12 sets, daily range): BP systolic 94–114; BP diastolic 60–83; PULSE 90–107; TEMP 36.3–38.3; O2SAT 90–98; Ht 165.1 cm; Wt 42.6 kg
[2016-12-13] MEDS ORDERED: MoRPHine SULFATE 2 MG/ML CARP IV PRN (00:15)
[2016-12-13] MEDS ORDERED: [UNRECOGNIZED DRUG - OTHER] TD SCH (00:15)
[2016-12-13] MEDS ORDERED: ONDANSETRON INJ 2 MG/ML 2 ML VIAL IV PRN ×2 (00:15)
[2016-12-13 00:29] LABS: VEN BLD GAS O2 SATURATION 87.3 %; VEN BLOOD GAS BASE EXCESS 3.9 mmol/L
[2016-12-13] MEDS ORDERED: ALBUMIN HUMAN 25% 12.5 GM/50 ML VIAL IV STA (00:47)
--- NOTE | 2016-12-13 01:45 | EMERGENCY ROOM VISIT NOTE ---
History First contact with patient: 22:26 Chief Complaint: RESPIRATORY PROBLEMS Stated Complaint: DIFFICULTY BREATHING/ FR [facility] Nursing Triage Summary: pt arrives ALS from [facility]. pt d/c from [facility] ICU 90 minutes ago. pt was here with pneumonia and a chest tube. pt [facility] with O2 sat of 60s on 5L NC. EMS was called immediately. upon EMS arrival pt placed on Non Rebreather 15L with O2 sat of 91-92%. and BP in 80s Systolic. no other interventions performed by EMS. pt L leg amputee History of Present Illness The patient is a 71 year old male who presents to the Emergency Room with complaints of respiratory distress who was just discharged a few hours ago. Patient sat at the [facility] ICU were in the 60s on 5 L of oxygen. He is currently a full code. Patient was discharged of breath. Patient denies chest pain, fevers, abdominal pain, sore throat. Patient states he would like to live and wanted to see his daughter get January 02. Patient is currently on Augmentin. He did chest drain placed for the pleural effusions and had this drained today prior to being discharged from the hospital. Review of Systems See HPI for pertinent positives & negatives. A total of 10 systems reviewed and were otherwise negative. 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, extremities (13) Hemoptysis (14) History of anal cancer (15) History of left above knee amputation (16) History of pulmonary embolism (17) Hypothyroidism (18) Peripheral arterial disease (19) Presence of IVC filter (20) PVD (peripheral vascular disease) Family History No pertinent family history Social History Smoking Status: Unknown if Ever Smoked Drug Use: none Marital Status: single Housing Status: other Occupation Status: other Current/Historical Medications Scheduled Aclidinium [place] (Tudorza Pressair), 1 PUFF INH BID Amiodarone Hcl (Cordarone), 200 MG PO BID Amoxicillin & Pot Clavulanate (Amoxicillin/Clavulanate P), 875 MG PO BIDM Ciclesonide (Alvesco), 1 PUFF PO BID Control Gel Formula Dressing (Duoderm Cgf), 1 PATCH TD [id number] Diphenhydramine Hcl (Benadryl), 50 MG PO QPM Emollient (Lubriskin), 1 APPLN TOP BID Ferrous Fumarate (Hemocyte), 324 MG PO BID Guaifenesin (Guaifenesin), 800 MG PO TID Ipratropium-Albuterol (Duoneb), 1 TREATMENT INH QID Levothyroxine Sodium (Synthroid), 225 MCG PO DAILY Loperamide Hcl (Imodium), 2 MG PO BID Metoclopramide Hcl (Reglan), 5 MG PO AC Metoprolol Tartrate (Lopressor), 12.5 MG PO BID Midodrine Hcl (Midodrine Hcl), 5 MG PO TID Nortriptyline (Pamelor), 10 MG PO HS Nutritional Supplements (Nutritional Drink), 1 CAN PO TIDM Omeprazole (Omeprazole), 40 MG PO DAILY Prednisone Tab (Prednisone), 10 MG PO UD Zinc Oxide (Topical) (Desitin Rapid Relief), 1 APPLN TOP DIRECTED Scheduled PRN Acetaminophen (Tylenol), 325 MG PO TID PRN for Pain Acetaminophen/Codeine (Tylenol W/Codeine #3), 1 TAB PO Q4H WHILE AWAKE PRN for Pain Albuterol Hfa (Ventolin Hfa), 2 PUFFS INH QID PRN for SOB/Wheezing Docusate Sodium (Gnp Stool Softener), 250 MG PO DAILY PRN for Constipation Hydrocortisone (Topical) (Hydrocortisone), 1 APPLN TOP TID PRN for RASH Ondansetron Hcl (Zofran), 8 MG PO TID PRN for Nausea Allergies Coded Allergies: Aspirin (Verified Allergy, Unknown, 12/12/16) Procaine (Verified Allergy, Unknown, 12/12/16) Rosuvastatin (Verified Allergy, Unknown, UNKNOWN, 12/06/16) Physical Exam Vital Signs Date Time Temp Pulse Resp B/P Pulse Ox O2 Delivery O2 Flow Rate FiO2 12/13/16 01:00 100 25 91/62 92 BiPAP 60 12/13/16 00:44 95/55 BiPAP 60 12/13/16 00:32 105 21 96/54 93 BiPAP 60 12/13/16 00:30 96/61 BiPAP 60 12/13/16 00:00 102 29 93/62 94 BiPAP 60 12/12/16 23:47 103 25 95/55 93 BiPAP 60 12/12/16 23:22 103 94 12/12/16 23:21 103 24 94 BiPAP/CPAP 60 12/12/16 22:50 102 12/12/16 22:39 92 Non-Rebreather 15.0 12/12/16 22:39 36.7 103 22 122/71 92 Non-Rebreather 15.0 12/12/16 22:39 92 Non-Rebreather Physical Exam VITALS: Vitals are noted on the nurse's note and reviewed by myself. Vital signs stable. GENERAL: Elderly male ill-appearing in acute respiratory distress on 15 L bag valve oxygen mask. SKIN: The skin was without rashes, erythema, edema, or bruising. There is no tenting of the skin. Capillary reflex less than 2 seconds. HEAD: Normocephalic atraumatic. EARS: External auditory canals clear, tympanic membranes pearly wade without erythema or effusion bilaterally. EYES: Pupils equal round and reactive to light and accommodation. Conjunctivae without injection, sclerae without icterus. Extraocular movements intact. NOSE: Patent, turbinates without inflammation or discharge. No sinus tenderness. MOUTH: Mucous membranes mildly dry. Pharynx without erythema or exudate. Uvula midline. Airway patent. Tongue does not deviate. NECK: Supple without nuchal rigidity. No lymphadenopathy. No thyromegaly. Cervical spine is nontender. No JVD. HEART: Regular rate and rhythm LUNGS: Diffusely tender and end expiratory wheezes, bibasilar rales or rhonchi. No dullness to percussion. No retractions or accessory muscle use. ABDOMEN: Positive bowel sounds x 4. Normal tympanic percussion. Soft, nontender, without masses or organomegaly. Fonseca sign negative. No guarding or rebound tenderness. MUSCULOSKELETAL: No muscle atrophy, erythema, or edema noted. Left leg above- the-knee interpretation NEURO: Patient was alert and oriented to person place and time. Normal sensation to light and sharp touch. No focal neurological deficits. Medical Decision & Procedures Laboratory Results 12/12/16 22:52 Red Blood Count 3.60, Mean Corpuscular Volume 91.9, Mean Corpuscular Hemoglobin 28.1, Mean Corpuscular Hemoglobin Concent 30.5, Mean Platelet Volume 9.9, Neutrophils (%) (Auto) 95.2, Lymphocytes (%) (Auto) 0.4, Monocytes (%) (Auto) 3.6, Eosinophils (%) (Auto) 0.0, Basophils (%) (Auto) 0.1, Neutrophils # (Auto) 10.86, Lymphocytes # (Auto) 0.05, Monocytes # (Auto) 0.41, Eosinophils # (Auto) 0.00, Basophils # (Auto) 0.01 12/12/16 22:52 Test 12/12/16 22:52 12/12/16 23:00 12/12/16 23:09 12/13/16 00:17 White Blood Count 11.41 K/uL (4.8-10.8) Red Blood Count 3.60 M/uL (4.7-6.1) Hemoglobin 10.1 g/dL (14.0-18.0) Hematocrit 33.1 % (42-52) Mean Corpuscular Volume 91.9 fL (80-100) Mean Corpuscular Hemoglobin 28.1 pg (25-34) Mean Corpuscular Hemoglobin Concent 30.5 g/dl (32-36) Platelet Count 190 K/uL (130-400) Mean Platelet Volume 9.9 fL (7.4-10.4) Neutrophils (%) (Auto) 95.2 % Lymphocytes (%) (Auto) 0.4 % Monocytes (%) (Auto) 3.6 % Eosinophils (%) (Auto) 0.0 % Basophils (%) (Auto) 0.1 % Neutrophils # (Auto) 10.86 K/uL (1.4-6.5) Lymphocytes # (Auto) 0.05 K/uL (1.2-3.4) Monocytes # (Auto) 0.41 K/uL (0.11-0.59) Eosinophils # (Auto) 0.00 K/uL (0-0.5) Basophils # (Auto) 0.01 K/uL (0-0.2) RDW Standard Deviation 60.3 fL (36.4-46.3) RDW Coefficient of Variation 18.3 % (11.5-14.5) Immature Granulocyte % (Auto) 0.7 % Immature Granulocyte # (Auto) 0.08 K/uL (0.00-0.02) Nucleated RBC Absolute Count (auto) 0.19 K/uL (0-0) Nucleated Red Blood Cells % 1.7 % Red Blood Cell Morphology Unremarkable Prothrombin Time 12.0 SECONDS (9.0-12.0) Prothromb Time International Ratio 1.1 (0.9-1.1) Activated Partial Thromboplast Time 34.8 SECONDS (21.0-31.0) Partial Thromboplastin Ratio 1.3 Anion Gap 6.0 mmol/L (3-11) Est Creatinine Clear Calc Drug Dose 132.1 ml/min Estimated GFR () 143.5 Estimated GFR (Non- 123.8 BUN/Creatinine Ratio 12.3 (10-20) Calcium Level 7.5 mg/dl (8.5-10.1) Magnesium Level 1.8 mg/dl (1.8-2.4) Total Bilirubin 0.3 mg/dl (0.2-1) Aspartate Amino Transf (AST/SGOT) 55 U/L (15-37) Alanine Aminotransferase (ALT/SGPT) 128 U/L (12-78) Alkaline Phosphatase 172 U/L (45-117) Troponin I 0.330 ng/ml (0-0.045) Total Protein 4.8 gm/dl (6.4-8.2) Albumin 1.6 gm/dl (3.4-5.0) Globulin 3.2 gm/dl (2.5-4.0) Albumin/Globulin Ratio 0.5 (0.9-2) Procalcitonin 0.11 ng/ml (0-0.5) Bedside Troponin I 0.290 ng/ml (0-0.045) Bedside Lactic Acid Venous 1.89 mmol/L (0.90-1.70) Venous Blood pH 7.50 (7.36-7.41) Venous Blood Partial Pressure CO2 35 mmHg (38.0-50.0) Venous Blood Partial Pressure O2 55 mmHg Venous Blood HCO3 27 mmol/L Venous Blood Oxygen Saturation 87.3 % Venous Blood Base Excess 3.9 mmol/L Medications Administered Medications (Trade) Dose Ordered Sig/Malcolm Route Start Time Stop Time Status Last Admin Dose Admin Methylprednisolone Sodium Succinate (Solu-Medrol IV) 125 mg NOW STAT IV 12/12/16 22:31 12/12/16 22:33 DC 12/12/16 22:56 125 MG Albuterol/ Ipratropium (Duoneb) 3 ml NOW STAT INH 12/12/16 22:31 12/12/16 22:33 DC 12/12/16 22:51 3 ML Piperacillin Sod/ Tazobactam Sod 4.5 gm 4.5 gm NOW STAT IV 12/12/16 22:48 12/12/16 22:51 DC 12/13/16 00:26 4.5 GM Linezolid/Prmx (Zyvox / D5W/ Premixed D5W) 300 ml @ 300 mls/hr NOW STAT IV 12/12/16 22:48 12/12/16 23:47 DC 12/12/16 23:16 300 MLS/HR Furosemide (Lasix Inj) 40 mg NOW STAT IV 12/12/16 23:42 12/12/16 23:43 DC 12/13/16 00:23 40 MG Procedure Central Venous Catheter Indication: Hypotension, sepsis, acute respiratory failure Catheter type: Central line Location: Right groin Verbal consent was obtained after the risks and benefits were explained, including but not limited to pneumothorax, hemothorax, vessel injury, bleeding, scarring, infection, pain, and bone/joint/nerve damage. At this time, the risks of the procedure are less than the risks of NOT performing the procedure. A time out was taken and the correct patient and site identified. The patient was placed in the supine position and the skin was prepped in the standard fashion with chlorhexidine and full sterile drapes applied. The proper landmarks were identified with ultrasound, anesthetized with 1% lidocaine without epinephrine, and the needle was inserted through the skin in the standard fashion. The needle was carefully advanced into blood vessel lumen under ultrasound guidance. The guidewire was placed uneventfully. The vessel is dilated and the catheter was placed. It was sutured into position. There was good blood return from all ports. The patient tolerated the procedure well and there were no complications. ED Course Prior records/ancillary studies reviewed. Triage Nursing notes reviewed. Additional history obtained from the EMS The patient's history was concerning for respiratory difficulties. Differential diagnosis: Etiologies such as ARDs, infections, reactive airway disease, pneumonia, pneumothorax, COPD, CHF, cardiac ischemia, pulmonary embolism, musculoskeletal, gastrointestinal, as well as others were entertained. Physical examination: As above. ER treatment provided: Nebulizer, steroids, BiPAP, Zosyn, Zyvox On reassessment the patient felt better. Diagnostic interpretation by me: The electrocardiogram was normal sinus, T-wave inversions in the V3 and V4, rate of 103, normal axis, impression sinus tachycardia with T-wave inversions in the anteroseptal leads interpreted by myself The labs revealed elevated lactic, elevated troponin, anemia Imaging studies: Chest x-ray shows pulmonary congestion concerns for ARDs per my interpretation. Increase from yesterday's x-ray per chart review Consultation: A consultation was placed with Dr. Fernandes, hospitalist. The case was discussed and diagnostics were reviewed. The patient was evaluated in the ER for further treatment. I spoke with Dr. Regan from pulmonology and will see the patient tomorrow. He recommended medical admission. I consulted Dr. Nesbitt from [facility] and recommends a telemetry admission. This appears to be consistent with ARDs with possible sepsis. Patient was immediately placed on BiPAP given nebulizers, antibiotics, steroids and Lasix. Multiple consultants were consulted. Patient was immediately paged for admission. He was just discharged a few hours ago. He is currently still a full code. He was reassessed multiple times. Attending was made aware of him. Patient's pressure began to drop and a central line was placed. By the evaluation outlined above emergent etiologies such as pneumothorax, musculoskeletal, as well as others were deemed relatively unlikely. The pt informed about the findings as listed above. All questions were answered and pleased with the treatment. case reviewed with my Attending Medical Decision As above Impression Primary Impression: Acute respiratory failure with hypoxia Additional Impression: Hypoxemia Critical Care I have personally spent greater than 30 minutes of critical care time in the direct management of this patient. This includes bedside care, interpretation of diagnostic studies, and testing, discussion with consultants, patient, and family members, and other required patient management activities. This 30 minutes is in excess of all separately billable procedures. Departure Information Dispostion Being Evaluated By Hospitalist Condition POOR Referrals Frances DOHERTY (PCP) Patient Instructions My [facility] Problem Qualifiers
[2016-12-13] MEDS ORDERED: VANCOMYCIN INJ 1,250 MG in SODIUM CHLORIDE 0.9% 250ML 250 ML IV STA (02:13)
[2016-12-13] MEDS ORDERED: NSS + 20MEQ KCL 1000ML 1,000 ML IV SCH (02:30)
[2016-12-13] MEDS: ALBUMIN HUMAN 25% 12.5 GM/50 ML VIAL IV SCH ×12 (02:42→23:23)
[2016-12-13] MEDS ORDERED: LANOLIN/PETROLATUM 30 GM TUBE EXT PRN ×2 (03:00)
[2016-12-13] MEDS ORDERED: LEVALBUTEROL/IPRATROPIUM NEB INH SCH (03:00)
[2016-12-13] MEDS ORDERED: PIPERACILL/TAZOBAC CONSULT ACTIVE PRN (03:15)
[2016-12-13] MEDS ORDERED: VANCOMYCIN CONSULT ACTIVE PRN (03:15)
[2016-12-13] MEDS ORDERED: HYDROCORTISONE 2.5% CR 30 GM TUBE EXT PRN (03:15)
[2016-12-13] MEDS: METHYLPREDNISOLONE IV 60 MG in SYRINGE 0 ML IV SCH ×2 (03:21→10:13)
--- NOTE | 2016-12-13 03:50 | History and Physical ---
History & Physical Date & Time of Service: December 13, 2016 at 03:32. The patient was examined on 12/12/2016 Chief Complaint: Acute Respiratory Failure With Hypoxia, [place] Primary Care Physician: Frances DOHERTY History of Present Illness Source: patient, hospital records The patient is a 71-year-old resident of [facility], who had just been discharged from the ICU earlier in the day, on 6 L of nasal cannula oxygen, who reportedly became significantly hypoxic at the [facility] upon arrival, and was immediately returned to the hospital emergency department for assessment. The patient had been discharged earlier in the day, with a potential idea of hospice while at the [facility], however, the patient had decided against hospice in the interim. While in the hospital at last visit, he did have a chest tube placed, which was subsequently removed, and then sent with a Pleurx catheter to the [facility]. When EMS arrived at the [facility], he reportedly had an oxygen saturation in the 60s on 5 L nasal cannula, at which time they placed him on a 15 L nonrebreather with subsequent O2 saturation 91-92%. Past Medical/Surgical History Medical Problems: (1) Acute kidney injury Status: Resolved (2) Afib Status: Chronic (3) Anticoagulation goal of INR 2 to 3 Status: Chronic (4) Atrial fibrillation and flutter Status: Chronic (5) Atrial flutter with rapid ventricular response Permanent Comment: now in Normal sinus rhythms Status: Resolved (6) COPD (chronic obstructive pulmonary disease) Status: Chronic (7) History of anal cancer Status: Resolved (8) History of left above knee amputation Status: Chronic (9) History of pulmonary embolism Status: Chronic (10) Hypothyroidism Status: Chronic (11) Peripheral arterial disease Status: Chronic (12) PVD (peripheral vascular disease) Status: Chronic Family History No pertinent family history Social History Smoking Status: Former Smoker Smokeless Tobacco Use: No Alcohol Use: none Drug Use: none Marital Status: single Housing status: other Occupational Status: other Immunizations History of Influenza Vaccine: Yes History of Tetanus Vaccine?: Yes History of Pneumococcal: Yes History of Hepatitis B Vaccine: Yes Multi-Drug Resistant Organisms History of MDRO: No Allergies Coded Allergies: Aspirin (Verified Allergy, Unknown, 12/12/16) Procaine (Verified Allergy, Unknown, 12/12/16) Rosuvastatin (Verified Allergy, Unknown, UNKNOWN, 12/06/16) Home Medications Scheduled Aclidinium [place] (Tudorza Pressair), 1 PUFF INH BID Amiodarone Hcl (Cordarone), 200 MG PO BID Amoxicillin & Pot Clavulanate (Amoxicillin/Clavulanate P), 875 MG PO BIDM Ciclesonide (Alvesco), 1 PUFF PO BID Control Gel Formula Dressing (Duoderm Cgf), 1 PATCH TD [id number] Diphenhydramine Hcl (Benadryl), 50 MG PO QPM Emollient (Lubriskin), 1 APPLN TOP BID Ferrous Fumarate (Hemocyte), 324 MG PO BID Guaifenesin (Guaifenesin), 800 MG PO TID Ipratropium-Albuterol (Duoneb), 1 TREATMENT INH QID Levothyroxine Sodium (Synthroid), 225 MCG PO DAILY Loperamide Hcl (Imodium), 2 MG PO BID Metoclopramide Hcl (Reglan), 5 MG PO AC Metoprolol Tartrate (Lopressor), 12.5 MG PO BID Midodrine Hcl (Midodrine Hcl), 5 MG PO TID Nortriptyline (Pamelor), 10 MG PO HS Nutritional Supplements (Nutritional Drink), 1 CAN PO TIDM Omeprazole (Omeprazole), 40 MG PO DAILY Prednisone Tab (Prednisone), 10 MG PO UD Zinc Oxide (Topical) (Desitin Rapid Relief), 1 APPLN TOP DIRECTED Scheduled PRN Acetaminophen (Tylenol), 325 MG PO TID PRN for Pain Acetaminophen/Codeine (Tylenol W/Codeine #3), 1 TAB PO Q4H WHILE AWAKE PRN for Pain Albuterol Hfa (Ventolin Hfa), 2 PUFFS INH QID PRN for SOB/Wheezing Docusate Sodium (Gnp Stool Softener), 250 MG PO DAILY PRN for Constipation Hydrocortisone (Topical) (Hydrocortisone), 1 APPLN TOP TID PRN for RASH Ondansetron Hcl (Zofran), 8 MG PO TID PRN for Nausea Review of Systems The patient is minimally responsive, and not able to contribute significantly to his history of present illness. Constitutional: + fatigue, + weakness, + weight loss, No chills, No fever, No sweats Eyes: No diplopia, No discharge, No eye pain, No problem reported, No redness, No worsening of vision ENT: No dental problems, No hearing loss, No nasal symptoms, No problem reported, No sore throat, No tinnitus, No trouble swallowing, No unusual epistaxis Respiratory: + dyspnea at rest, + dyspnea on exertion, + problem reported, + shortness of breath, + wheezing, No cough, No hemoptysis, No sputum Cardiovascular: + chest pain, No PND, No claudication, No edema, No orthopnea, No palpitations Abdomen: No GI bleeding, No constipation, No diarrhea, No nausea, No pain, No problem reported, No vomiting Musculoskeletal: No calf pain, No joint pain, No muscle pain, No problem reported, No swelling Genitourinary - Male: No dysuria, No hematuria, No impotence, No lesions, No penile discharge, No problem reported, No urinary frequency, No urinary hesitancy, No urinary incontinence, No urinary retention, No urinary urgency Neurologic: No balance problems, No memory loss, No numbness/tingling, No paralysis, No problem reported, No vertigo, No weakness Psychiatric: No anhedonism, No anxiety, No depression symptoms, No insomnia, No problem reported, No substance abuse Endocrine: No excessive thirst, No excessive urination, No fatigue, No problem reported Hematologic / Lymphatic: No abnormal bleeding/bruising, No clotting problems, No night sweats, No problem reported, No swollen lymph nodes Integumentary: No bleeding, No color change, No itch, No new/changing skin lesions, No problem reported, No rash Allergic / Immunologic: No environmental allergies, No food allergies, No frequent infections, No hives, No pet sensitivities, No poor healing, No problem reported, No prolonged convalescence, No seasonal allergies Physical Exam Vital Signs Date Time Temp Pulse Resp B/P Pulse Ox O2 Delivery O2 Flow Rate FiO2 12/13/16 02:35 36.3 102 20 97/67 98 BiPAP 60 12/13/16 01:53 98 92 60 12/13/16 01:40 100 25 91/62 92 12/13/16 01:00 100 25 91/62 92 BiPAP 60 12/13/16 00:44 95/55 BiPAP 60 12/13/16 00:32 105 21 96/54 93 BiPAP 60 12/13/16 00:30 96/61 BiPAP 60 12/13/16 00:00 102 29 93/62 94 BiPAP 60 12/12/16 23:47 103 25 95/55 93 BiPAP 60 12/12/16 23:22 103 94 12/12/16 23:21 103 24 94 BiPAP/CPAP 60 12/12/16 22:50 102 12/12/16 22:39 92 Non-Rebreather 15.0 12/12/16 22:39 36.7 103 22 122/71 92 Non-Rebreather 15.0 12/12/16 22:39 92 Non-Rebreather General Appearance: + moderate distress, + thin, + pertinent finding ( cachectic appearing. Not able to respond to questioning due to altered mental status and shortness of breath.) Head: normocephalic, atraumatic Eyes: normal inspection, PERRL, EOMI, sclerae normal Neck: supple, no adenopathy, thyroid normal, no JVD, no carotid bruits, trachea midline Respiratory/Chest: chest non-tender, + respiratory distress (moderately severe) , + rhonchi, + wheezing, + pertinent finding (moderate accessory muscle use) Cardiovascular: no edema, no gallop, no JVD, no murmur, normal peripheral pulses, + tachycardia Abdomen/GI: normal bowel sounds, non tender, soft, no organomegaly, no pulsatile mass Back: normal inspection, no CVA tenderness, no muscle spasm, normal range of motion Extremities/Musculoskelatal: no calf tenderness, normal capillary refill, no pedal edema, normal range of motion, non-tender, + pertinent finding (left AKA with sutures clean, dry and intact.) Neurologic/Psych: liner man II-XII nml as tested, no motor/sensory deficits, + disoriented Skin: normal color, warm/dry, no rash (assessment a right lower extremity) Lymphatic: no adenopathy Diagnostics Laboratory Results Results Past 24 Hours Test 12/12/16 22:52 12/12/16 23:00 12/12/16 23:09 12/13/16 00:17 Range/Units White Blood Count 11.41 4.8-10.8 K/uL Red Blood Count 3.60 4.7-6.1 M/uL Hemoglobin 10.1 14.0-18.0 g/dL Hematocrit 33.1 42-52 % Mean Corpuscular Volume 91.9 80-100 fL Mean Corpuscular Hemoglobin 28.1 25-34 pg Mean Corpuscular Hemoglobin Concent 30.5 32-36 g/dl Platelet Count 190 130-400 K/uL Mean Platelet Volume 9.9 7.4-10.4 fL Neutrophils (%) (Auto) 95.2 % Lymphocytes (%) (Auto) 0.4 % Monocytes (%) (Auto) 3.6 % Eosinophils (%) (Auto) 0.0 % Basophils (%) (Auto) 0.1 % Neutrophils # (Auto) 10.86 1.4-6.5 K/uL Lymphocytes # (Auto) 0.05 1.2-3.4 K/uL Monocytes # (Auto) 0.41 0.11-0.59 K/uL Eosinophils # (Auto) 0.00 0-0.5 K/uL Basophils # (Auto) 0.01 0-0.2 K/uL RDW Standard Deviation 60.3 36.4-46.3 fL RDW Coefficient of Variation 18.3 11.5-14.5 % Immature Granulocyte % (Auto) 0.7 % Immature Granulocyte # (Auto) 0.08 0.00-0.02 K/uL Nucleated RBC Absolute Count (auto) 0.19 0-0 K/uL Nucleated Red Blood Cells % 1.7 % Red Blood Cell Morphology Unremarkable Prothrombin Time 12.0 9.0-12.0 SECONDS Prothromb Time International Ratio 1.1 0.9-1.1 Activated Partial Thromboplast Time 34.8 21.0-31.0 SECONDS Partial Thromboplastin Ratio 1.3 Sodium Level 143 136-145 mmol/L Potassium Level 3.4 3.5-5.1 mmol/L Chloride Level 105 98-107 mmol/L Carbon Dioxide Level 32 21-32 mmol/L Anion Gap 6.0 3-11 mmol/L Blood Urea Nitrogen 5 7-18 mg/dl Creatinine 0.38 0.60-1.40 mg/dl Est Creatinine Clear Calc Drug Dose 132.1 ml/min Estimated GFR () 143.5 Estimated GFR (Non- 123.8 BUN/Creatinine Ratio 12.3 10-20 Random Glucose 71 70-99 mg/dl Calcium Level 7.5 8.5-10.1 mg/dl Magnesium Level 1.8 1.8-2.4 mg/dl Total Bilirubin 0.3 0.2-1 mg/dl Aspartate Amino Transf (AST/SGOT) 55 15-37 U/L Alanine Aminotransferase (ALT/SGPT) 128 12-78 U/L Alkaline Phosphatase 172 45-117 U/L Troponin I 0.330 0-0.045 ng/ml Total Protein 4.8 6.4-8.2 gm/dl Albumin 1.6 3.4-5.0 gm/dl Globulin 3.2 2.5-4.0 gm/dl Albumin/Globulin Ratio 0.5 0.9-2 Procalcitonin 0.11 0-0.5 ng/ml Bedside Troponin I 0.290 0-0.045 ng/ml Bedside Lactic Acid Venous 1.89 0.90-1.70 mmol/L Venous Blood pH 7.50 7.36-7.41 Venous Blood Partial Pressure CO2 35 38.0-50.0 mmHg Venous Blood Partial Pressure O2 55 mmHg Venous Blood HCO3 27 mmol/L Venous Blood Oxygen Saturation 87.3 % Venous Blood Base Excess 3.9 mmol/L Microbiology Results 12/12/16 Blood Culture, Received Pending 12/12/16 Blood Culture, Received Pending 12/13/16 MRSA DNA Surveillance Screen, Received Pending Diagnostic Radiology Chest x-ray compared to December 11, shows progression to ARDS, with left Pleurx catheter in place and small left pleural effusion. Impression Assessment and Plan Acute respiratory failure with hypoxia/ARDS--the patient will be admitted to telemetry overflow/ICU. He'll be placed on vancomycin IV, Zosyn IV, levofloxacin IV, methylprednisolone 60 mg IV every 6 hours, Xopenex/Atrovent nebulizer every 6 hours while awake and every 2 hours when necessary, and continue BiPAP per protocol started in the emergency department. He'll be given albumin 25 g IV every 4 hours for 24 hours. Hold Tudorza, Augmentin, Alvesco, prednisone. His case was discussed by emergency department staff with Dr. Jaramillo from thoracic surgery, and Dr. Nesbitt from web services developer service. Atrial fibrillation/flutter/hypotension--continue amiodarone 200 mg by mouth twice a day. Hold metoprolol tartrate 12.5 mg by mouth twice a day, midodrine 5 mg by mouth 3 times a day. Follow on cardiac monitor technician, and will have Lopressor 5 mg IV every 4 hours when necessary available. GERD--change omeprazole 40 mg by mouth daily to pantoprazole 40 mg IV daily. Hypothyroidism--continue levothyroxine sodium at 1025 g by mouth daily. 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 Y/N: Yes Risk Level: Moderate Given or contraindicated: SCD's (of right lower extremity only.) Note Total Time: Critical Care 30 - 74 minutes
[2016-12-13] MEDS ORDERED: LEVOFLOXACIN / D5W 500 MG in PREMIXED IN D5W 100 ML IV SCH ×2 (04:00→06:00)
[2016-12-13] MEDS: PIPERACILL/TAZOBAC IV 3.375 GM in DEXTROSE 5% 100ML 100 ML IV SCH ×3 (05:56→22:19)
[2016-12-13] MEDS: LEVOTHYROXINE 75 MCG TAB PO SCH (05:57)
[2016-12-13] MEDS: BOOST VANILLA PO SCH ×6 (07:15→16:15)
--- NOTE | 2016-12-13 07:20 | DIAGNOSTIC IMAGING REPORT ---
CHEST ONE VIEW PORTABLE CLINICAL HISTORY: Sepsis COMPARISON STUDY: Chest radiograph and chest CT December 11, 2016. FINDINGS: A left pleural catheter and left subclavian central line remain in place. There is no pneumothorax. Dense bilateral airspace opacities have slightly progressed. Cardiomediastinal silhouette is stable. IMPRESSION: Progression of extensive bilateral airspace opacities which favors pneumonia superimposed upon emphysema. Pulmonary edema or ARDS could appear similar. Electronically signed by: Everton Merida M.D. 12/13/2016 7:18 AM Dictated Date/Time: 12/13/2016 7:17 AM
[2016-12-13] MEDS: ALBUT/IPRATROP 3MG/0.5MG NEB 3 ML VIAL INH SCH ×4 (07:30→20:01)
--- NOTE | 2016-12-13 08:02 | Hospitalist Progress Note ---
Hospitalist Progress Note Date of Service December 13, 2016. (Jennifer Alarcon PA-C) Subjective Pt evaluation today including: conversation w/ patient, physical exam, chart review, lab review, review of studies Voiding: no voiding problems The patient was seen and examined this morning. Patient is in the ICU for telemetry overflow. He is currently on BiPAP appears very frail and weak this morning. The patient reports that he is tired of living like this, and feels that nobody is helping him. He is in low spirits this morning he thinks he is going to be left to , and that if for some reason he makes it through this hospital stay, he'll go back to long term and the inmates there will kill him. I asked him if he wanted to speak with the lean [employer] senior specialist today, and he neither accepts nor denies it. When I mention his daughter and her wedding on January 02, he doesn' t seem to care. Again he reiterates that he doesn't think he'll make it until that point. I suggested that palliative come to see the patient, which he is agreeable to. Additional Comments: Constitutional: No fever, chills, sweats, + fatigue and weakness Eyes: No diplopia, no changes in vision ENT: No sore throat, tinnitus, or trouble swallowing Respiratory: + shortness of breath, +dyspnea at rest and on exertion, + cough, no sputum production Cardiovascular: No chest pain, palpitations, or flutter Abdomen: No pain, No constipation, No diarrhea, No nausea, No vomiting Musculoskeletal: +Right calf pain. Left AKA. Genitourinary: Patient is voiding on his own. Neurologic: No numbness/tingling, does not walk due to weakness and left AKA Psychiatric: Depressed Endocrine: + fatigue and weight loss Integumentary: No rash, itch (Jennifer Alarcon PA-C) Objective Vital Signs Date Time Temp Pulse Resp B/P Pulse Ox O2 Delivery O2 Flow Rate FiO2 12/13/16 05:15 94 95 60 12/13/16 04:00 36.8 90 20 99/65 96 BiPAP 60 12/13/16 02:35 36.3 102 20 97/67 98 BiPAP 60 12/13/16 01:53 98 92 60 12/13/16 01:40 100 25 91/62 92 12/13/16 01:00 100 25 91/62 92 BiPAP 60 12/13/16 00:44 95/55 BiPAP 60 12/13/16 00:32 105 21 96/54 93 BiPAP 60 12/13/16 00:30 96/61 BiPAP 60 12/13/16 00:00 102 29 93/62 94 BiPAP 60 12/12/16 23:47 103 25 95/55 93 BiPAP 60 12/12/16 23:22 103 94 12/12/16 23:21 103 24 94 BiPAP/CPAP 60 12/12/16 22:50 102 12/12/16 22:39 92 Non-Rebreather 15.0 12/12/16 22:39 36.7 103 22 122/71 92 Non-Rebreather 15.0 12/12/16 22:39 92 Non-Rebreather (Jennifer Alarcon PA-C) Physical Exam Notes: General: awake, alert, frail and weak, mild distress Head: Normocephalic, +ecchymosis over the right lateral neck wall ENT: PERRL, EOMI, no pharyngeal exudate, mucous membranes moist Chest: Requiring BiPAP, without BiPAP O2 sats dropped to low 80s, positive cough , no sputum production, diminished breath sounds at bases bilaterally, coarse breath sounds throughout, +faint crackles, no wheezing Cardiac: Regular rate and rhythm, no murmur, no JVD, normal peripheral pulses, good capillary refill Abdominal: NABS x 4 quadrants, soft, nontender to palpation, no rebound, guarding or tenderness Extremities: Normal inspection, no peripheral edema or erythema, calfs nontender to palpation Psych: Depressed mood and affect Neuro: AAO x 3 (Jennifer Alarcon PA-C) Laboratory Results Last 24 Hours Test 12/12/16 22:52 12/12/16 23:00 12/12/16 23:09 12/13/16 00:17 White Blood Count 11.41 K/uL Red Blood Count 3.60 M/uL Hemoglobin 10.1 g/dL Hematocrit 33.1 % Mean Corpuscular Volume 91.9 fL Mean Corpuscular Hemoglobin 28.1 pg Mean Corpuscular Hemoglobin Concent 30.5 g/dl Platelet Count 190 K/uL Mean Platelet Volume 9.9 fL Neutrophils (%) (Auto) 95.2 % Lymphocytes (%) (Auto) 0.4 % Monocytes (%) (Auto) 3.6 % Eosinophils (%) (Auto) 0.0 % Basophils (%) (Auto) 0.1 % Neutrophils # (Auto) 10.86 K/uL Lymphocytes # (Auto) 0.05 K/uL Monocytes # (Auto) 0.41 K/uL Eosinophils # (Auto) 0.00 K/uL Basophils # (Auto) 0.01 K/uL RDW Standard Deviation 60.3 fL RDW Coefficient of Variation 18.3 % Immature Granulocyte % (Auto) 0.7 % Immature Granulocyte # (Auto) 0.08 K/uL Nucleated RBC Absolute Count (auto) 0.19 K/uL Nucleated Red Blood Cells % 1.7 % Red Blood Cell Morphology Unremarkable Prothrombin Time 12.0 SECONDS Prothromb Time International Ratio 1.1 Activated Partial Thromboplast Time 34.8 SECONDS Partial Thromboplastin Ratio 1.3 Sodium Level 143 mmol/L Potassium Level 3.4 mmol/L Chloride Level 105 mmol/L Carbon Dioxide Level 32 mmol/L Anion Gap 6.0 mmol/L Blood Urea Nitrogen 5 mg/dl Creatinine 0.38 mg/dl Est Creatinine Clear Calc Drug Dose 132.1 ml/min Estimated GFR () 143.5 Estimated GFR (Non- 123.8 BUN/Creatinine Ratio 12.3 Random Glucose 71 mg/dl Calcium Level 7.5 mg/dl Magnesium Level 1.8 mg/dl Total Bilirubin 0.3 mg/dl Aspartate Amino Transf (AST/SGOT) 55 U/L Alanine Aminotransferase (ALT/SGPT) 128 U/L Alkaline Phosphatase 172 U/L Troponin I 0.330 ng/ml Total Protein 4.8 gm/dl Albumin 1.6 gm/dl Globulin 3.2 gm/dl Albumin/Globulin Ratio 0.5 Procalcitonin 0.11 ng/ml Bedside Troponin I 0.290 ng/ml Bedside Lactic Acid Venous 1.89 mmol/L Venous Blood pH 7.50 Venous Blood Partial Pressure CO2 35 mmHg Venous Blood Partial Pressure O2 55 mmHg Venous Blood HCO3 27 mmol/L Venous Blood Oxygen Saturation 87.3 % Venous Blood Base Excess 3.9 mmol/L (Jennifer Alarcon, SUZETTE) Assessment and Plan This is a 71 yo M who was discharged yesterday (12/12) however became hypoxic once arrived back at the long term with O2 sats back into the 60s. He was placed on a nonrebreather at 15L O2 and sats improved to 90-92%. His PMHx includes Atrial fib and flutter s/p IVC placement, COPD, necrotic pneumonia, hypoxic respiratory failure, Hx of PE, PVD, Hypothyroidism, decubitus ulcer of the left ischium and sacrum, Hx of left AKA, anal carcinoma in 2004 who presented in septic shock secondary to obstructive pneumonia. Acute Respiratory Distress Acute hypoxia respiratory failure Sepsis secondary to obstructive/necrotizing pneumonia - Back in the ICU for telemetry overflow - Maintain MAP>60, was previously on vasopressors and Normosol for IVFs - currently is not requiring pressors. - CXR 12/12 reviewed: Progression of extensive bilateral airspace opacities which favors pneumonia superimposed upon emphysema. Pulmonary edema or ARDS could appear similar. - Titrate O2 sats to 88-92% -patient is currently on BiPAP - Was placed back on IV abx on admission- linezolid, zosyn, and levaquin (this is technically day 5 of IV abx as he never started outpatient regimen with Augmentin as written on discharge). Will stop levaquin. - BCx from 12/10 were negative, repeat BCx in process. - Pleural fluid studies are still in process from 2 days ago- follow - WBC 11.41 with left shift - Supportive treatment with incentive spirometry, flutter- pt does not ambulated due to recent left AKA and health, he is too weak/fatigued. Left sided pleural effusion - Pleurex catheter placed by Dr. Jaramillo on 12/09 - plans for all pleural fluid to be sent to lab for cytology as there is concern for malignant effusion with hx of anal carcinoma in 2004- appreciate thoracic med recs - likely malignant with cells on pleural fluid positive 1x for malignancy, awaiting other 2 cytology reports. - Studies pending including culture, fungal, and AFB - Daily drainage for shortness of breath as an outpatient. - Pt will need follow up with heme/onc within 2-4 weeks for palliative recommendations- discussion of possible bronchoscopy was held while he was an inpatient, decided that this would pose more risk than benefit so was elected not to be done. Right Lower extremity Pain - U/S on 12/10 showed superficial popliteal DVT so pt was placed on Lovenox 50 mg BID per dosing per weight -continue - Anti-Xa therapeutic at 1.03 Acute on Chronic COPD - stop Solu-Medrol now, Continue prednisone 40 mg BID and plan for long taper of each dose x at least 3 days, this will take approximately 3 weeks to complete - DuoNebs QID an Q2H prn Acute Transaminitis secondary to shock liver - Follow LFTs, trending downward and improving - Hepatits panel was negative EDDIE - Resolved with aggressive fluid resuscitation with Cr.= 0.35 Elevated Glucose - Continue on Lantus 5 U BID only when glucose exceeds 140, if less than this do not administer insulin, --- cont with ISS, hypoglycemic ppx on board, can back this off as steriod tapers - Hgb A1C= 6.1 in September 2016, no need to repeat. Hypophosphatemia - Decreased at 1.6, replaced this morning Elevated Troponin - Likely secondary to demand ischemia associated with septic shock - 0.330 on readmission and this is much lower than subsequent readings - Resolved Atrial Fibrillation - Cont amiodarone 200 mcg PO BID Hypothyroidism: Cont levothyroxine 225 mcg daily Ileus: - CT abd/pelvis showing dilated bowel loops likely determinate of ileus, resolving now, allowed a clear liquid diet - Pt with c/o LUQ pain, monitor with abdominal checks, abd nondistended and soft today Sacral decubitus ulceration - Turn and repo Q2H - Wound care consultation - Possible recurrence of malignancy with hx of anal carcinoma Goals of Care: Pt wished to remain alive to see his daughter get on January 02. I have asked palliative to come see the patient this morning as he seems to have a different outlook on his status that he did a few days ago. Pt seems depressed. We discussed that unfortunately despite large medical intervention, his body does not seem able to support his needs. He recognizes his status is very tenuous, and that it will be difficult to get him off respiratory support. With a poor prognosis and worsening status despite multiple team involvement, I feel that CODE STATUS should be rediscussed and that hospice care would be in his best interest. Code Status: FULL CODE Disposition: Remains on telemetry (Jennifer Alarcon PA-C)
[2016-12-13] MEDS: EUCERIN CR 120 GM JAR EXT SCH ×2 (08:09→20:51)
[2016-12-13] MEDS: AMIODARONE 200 MG TAB PO SCH ×2 (09:00→20:49)
[2016-12-13] MEDS: GUAIFENESIN 600 MG TABCR PO SCH ×2 (09:00→20:47)
[2016-12-13] MEDS: PANTOprazole INJ 40 MG in SYRINGE 0 ML IV SCH (10:13)
--- NOTE | 2016-12-13 10:32 | SURGERY PROGRESS NOTE ---
DATE: 12/13/2016 Mr. Crook was seen today. He is now on BiPAP. He looks even worse. He went back to the group home only to turn around and come right back with hypoxia and respiratory distress. I was called from the the Emergency Room, but really, he does not have much fluid. We are going to set him up for daily PleurX drainage. It is my clinical suspicion that Mr. Crook is at end of life. MARYD
--- NOTE | 2016-12-13 11:04 | Pharmacy Progress Note ---
Pharmacy Antibiotic Consult Date of Service: December 13, 2016. Pharmacy Dosing Scope Pharmacy is consulted to initiate VANCOMYCIN and ZOSYN IV therapy, order appropriate labs and adjust drug dose/frequency. Subjective The patient is a 71 year old male admitted on December 13, 2016 at 00:20 for acute hypoxemic respiratory failure shortly after arriving back to [facility]. He had recently been admitted 12/09 - 12/13 for septic shock, necrotizing/obstructive pnx , lung CA. He has been on abx continuously since 12/09. He was on Zyvox + Zosyn 12/09 --> 12/12 before being transitioned to Augmentin. Objective Height (Feet): 5 Height (Inches): 5.00 Weight (Kilograms): 47.200 Lab Results (24hrs): Test 12/12/16 22:52 12/12/16 23:00 12/12/16 23:09 12/13/16 00:17 White Blood Count 11.41 K/uL (4.8-10.8) Red Blood Count 3.60 M/uL (4.7-6.1) Hemoglobin 10.1 g/dL (14.0-18.0) Hematocrit 33.1 % (42-52) Mean Corpuscular Volume 91.9 fL (80-100) Mean Corpuscular Hemoglobin 28.1 pg (25-34) Mean Corpuscular Hemoglobin Concent 30.5 g/dl (32-36) Platelet Count 190 K/uL (130-400) Mean Platelet Volume 9.9 fL (7.4-10.4) Neutrophils (%) (Auto) 95.2 % Lymphocytes (%) (Auto) 0.4 % Monocytes (%) (Auto) 3.6 % Eosinophils (%) (Auto) 0.0 % Basophils (%) (Auto) 0.1 % Neutrophils # (Auto) 10.86 K/uL (1.4-6.5) Lymphocytes # (Auto) 0.05 K/uL (1.2-3.4) Monocytes # (Auto) 0.41 K/uL (0.11-0.59) Eosinophils # (Auto) 0.00 K/uL (0-0.5) Basophils # (Auto) 0.01 K/uL (0-0.2) RDW Standard Deviation 60.3 fL (36.4-46.3) RDW Coefficient of Variation 18.3 % (11.5-14.5) Immature Granulocyte % (Auto) 0.7 % Immature Granulocyte # (Auto) 0.08 K/uL (0.00-0.02) Nucleated RBC Absolute Count (auto) 0.19 K/uL (0-0) Nucleated Red Blood Cells % 1.7 % Red Blood Cell Morphology Unremarkable Prothrombin Time 12.0 SECONDS (9.0-12.0) Prothromb Time International Ratio 1.1 (0.9-1.1) Activated Partial Thromboplast Time 34.8 SECONDS (21.0-31.0) Partial Thromboplastin Ratio 1.3 Sodium Level 143 mmol/L (136-145) Potassium Level 3.4 mmol/L (3.5-5.1) Chloride Level 105 mmol/L (98-107) Carbon Dioxide Level 32 mmol/L (21-32) Anion Gap 6.0 mmol/L (3-11) Blood Urea Nitrogen 5 mg/dl (7-18) Creatinine 0.38 mg/dl (0.60-1.40) Est Creatinine Clear Calc Drug Dose 132.1 ml/min Estimated GFR () 143.5 Estimated GFR (Non- 123.8 BUN/Creatinine Ratio 12.3 (10-20) Random Glucose 71 mg/dl (70-99) Calcium Level 7.5 mg/dl (8.5-10.1) Magnesium Level 1.8 mg/dl (1.8-2.4) Total Bilirubin 0.3 mg/dl (0.2-1) Aspartate Amino Transf (AST/SGOT) 55 U/L (15-37) Alanine Aminotransferase (ALT/SGPT) 128 U/L (12-78) Alkaline Phosphatase 172 U/L (45-117) Troponin I 0.330 ng/ml (0-0.045) Total Protein 4.8 gm/dl (6.4-8.2) Albumin 1.6 gm/dl (3.4-5.0) Globulin 3.2 gm/dl (2.5-4.0) Albumin/Globulin Ratio 0.5 (0.9-2) Procalcitonin 0.11 ng/ml (0-0.5) Bedside Troponin I 0.290 ng/ml (0-0.045) Bedside Lactic Acid Venous 1.89 mmol/L (0.90-1.70) Venous Blood pH 7.50 (7.36-7.41) Venous Blood Partial Pressure CO2 35 mmHg (38.0-50.0) Venous Blood Partial Pressure O2 55 mmHg Venous Blood HCO3 27 mmol/L Venous Blood Oxygen Saturation 87.3 % Venous Blood Base Excess 3.9 mmol/L Micro Results: negative MRSA nares BLCX's ordered Recent Pertinent Medications Levofloxacin 500mg IV Q 24 hrs per provider's orders Assessment & Plan ASSESSMENT: * Patient readmitted for hypoxic resp failure after being hospitalized 12/09- and receiving 4 days IV ABX (Zyvox + Zosyn) then transitioned to PO Augmentin for necrotizing/obstructing PNX and underlying lung CA * Renal fxn stable based upon current labs, making adequate urine; renal fxn difficult to estimate in this patient, best estimate ~120cc/min but malnutrition and amputation make estimation formulas inaccurate * MRSA nasal swab remains negative this admission as well * Procalcitonin not elevated (0.11) --> sepsis/pnx not likely but localized infection possible * Currently afebrile VANCOMYCIN * 1250mg (~26mg/kg) loading dose x 1 given at 0322 * maintenance dose: 800mg (16.7mg/kg) IV Q 10 hours * goal trough: 15-20mcg/mL for treatment of pulm infxn * trough level will be drawn tomorrow evening 12/14/16 * P'kinetic estimates: eCrCl ~120; Vd 0.7L/kg; half-life ~7-8 hours ZOSYN * 3.375gm IV (over 4 hrs) Q 8 hrs indicated for current BMI and eCrCl > 20cc/min Pharmacy will continue to follow and will adjust dose/frequency as necessary. Thank you
[2016-12-13] MEDS: ENOXAPARIN 60 MG/0.6 ML SYR SQ SCH ×2 (11:47→23:22)
[2016-12-13] MEDS: VANCOMYCIN INJ 800 MG in SODIUM CHLORIDE 0.9% 250ML 250 ML IV SCH ×2 (13:58→23:23)
[2016-12-13] MEDS ORDERED: NURSING VERBAL MED ORDER STA (22:57)
[2016-12-13] MEDS ORDERED: LORAZEPAM 2 MG/ML 1 ML VIAL IV ONE (23:30)
[2016-12-13] MEDS ORDERED: LORAZEPAM 2 MG/ML 1 ML VIAL IV PRN (23:30)
[2016-12-13] MEDS ORDERED: HALOPERIDOL LACTATE 5 MG/ML 1 ML VIAL ONE (23:42)
[2016-12-14] VITALS (22 sets, daily range): BP systolic 95–116; BP diastolic 58–75; PULSE 87–115; TEMP 36.8–38.4; O2SAT 90–98
[2016-12-14] MEDS ORDERED: NURSING VERBAL MED ORDER ONE ×2 (00:15→03:15)
[2016-12-14] MEDS ORDERED: NURSING VERBAL MED ORDER STA (00:19)
[2016-12-14] MEDS ORDERED: FUROSEMIDE 40 MG/4 ML VIAL IV STA (00:22)
[2016-12-14 01:02] LABS: HEMATOCRIT 25.3 % (42-52); IG% 0.6 %; LYMPH % 2.9 %; LYMPH ABS # 0.28 K/uL (1.2-3.4); MEAN CORPUSCULAR HEMOGLOBIN 28.4 pg (25-34); MEAN PLATELET VOLUME 9.3 fL (7.4-10.4); MONO % 2.9 %; NEUT % 93.6 %; PLATELET COUNT 106 K/uL (130-400); RED BLOOD COUNT 2.75 M/uL (4.7-6.1); WHITE BLOOD COUNT 9.78 K/uL (4.8-10.8)
[2016-12-14 01:11] LABS: COMPLETE YES; MEAN CORPUSCULAR HGB CONC 30.8 g/dl (32-36)
[2016-12-14 01:28] LABS: BUN/CREATININE RATIO 14.9 (10-20); CALCIUM 7.8 mg/dl (8.5-10.1); CREATININE 0.43 mg/dl (0.60-1.40); MAGNESIUM 1.8 mg/dl (1.8-2.4); POTASSIUM 2.8 mmol/L (3.5-5.1)
[2016-12-14 01:31] LABS: CKMB/CK RATIO 2.3 (0-3.0)
[2016-12-14] MEDS ORDERED: MAGNESIUM SULFATE 1GM / D5W 1 GM in PREMIXED IN D5W 100 ML IV SCH (03:30)
[2016-12-14] MEDS: POTASSIUM CHLR 10MEQ / WTR IV SCH ×4 (03:42→06:30)
[2016-12-14] MEDS: PIPERACILL/TAZOBAC IV 3.375 GM in DEXTROSE 5% 100ML 100 ML IV SCH (05:28)
[2016-12-14] MEDS: LEVOTHYROXINE 75 MCG TAB PO SCH (05:54)
[2016-12-14 06:29] LABS: INR 1.2 (0.9-1.1); PARTIAL THROMBOPLASTIN RATIO 1.6; PROTHROMBIN TIME (PATIENT) 13.1 SECONDS (9.0-12.0)
--- NOTE | 2016-12-14 06:44 | DIAGNOSTIC IMAGING REPORT ---
CHEST ONE VIEW PORTABLE CLINICAL HISTORY: hypoxia COMPARISON STUDY: 12/12/2016 FINDINGS: The cardiac and mediastinal contours remain stable. A catheter fragment is again visualized in the left subclavian vein. There are extensive bilateral pulmonary airspace opacities. A line shadow within the left hemithorax likely represents a skinfold. There is a left basilar chest tube present. There is no significant pleural fluid.[ IMPRESSION: Persistent bilateral pulmonary airspace opacities. Electronically signed by: Aramis Lassiter M.D. 12/14/2016 6:42 AM Dictated Date/Time: 12/14/2016 6:41 AM
[2016-12-14] MEDS: BOOST VANILLA PO SCH ×6 (07:15→16:22)
[2016-12-14] MEDS ORDERED: POTASSIUM CHLORIDE 20 MEQ TABCR PO STA (07:33)
[2016-12-14] MEDS ORDERED: POTASSIUM CHLR 20 MEQ / WTR 20 MEQ in PREMIXED WATER 100 ML IV STA (07:33)
[2016-12-14] MEDS: ALBUT/IPRATROP 3MG/0.5MG NEB 3 ML VIAL INH SCH ×4 (07:34→19:30)
[2016-12-14] MEDS: GUAIFENESIN 600 MG TABCR PO SCH ×2 (07:39→21:00)
[2016-12-14] MEDS: AMIODARONE 200 MG TAB PO SCH ×2 (07:39→21:00)
--- NOTE | 2016-12-14 07:39 | Hospitalist Progress Note ---
Hospitalist Progress Note Date of Service December 14, 2016. Subjective Pt evaluation today including: physical exam, chart review, lab review, review of studies, conversation w/ organizational effectiveness consultant Pt is unarousable this morning as overnight he required IV ativan at 11:20 pm and IV haldol 4 mg at ~12:30 am. When I sternal rub his chest he wakes slightly and starts to get agitated. He is unable to provide any ROS. Objective Vital Signs Date Time Temp Pulse Resp B/P Pulse Ox O2 Delivery O2 Flow Rate FiO2 12/14/16 05:14 96 93 40 12/14/16 04:00 38.4 101 26 95/62 92 BiPAP 40 12/14/16 04:00 BiPAP 40 12/14/16 02:27 100 92 40 12/14/16 00:00 115 92 40 12/13/16 23:59 BiPAP 40 12/13/16 23:59 37.5 100 26 114/83 93 BiPAP 40 12/13/16 20:01 103 91 40 12/13/16 20:01 103 24 91 BiPAP/CPAP 40 12/13/16 20:00 BiPAP 40 12/13/16 20:00 38.3 107 29 114/69 90 BiPAP 40 12/13/16 16:00 BiPAP 40 12/13/16 16:00 36.4 100 22 100/66 97 BiPAP 40 12/13/16 15:20 98 27 92 BiPAP/CPAP 40 12/13/16 15:20 98 92 40 12/13/16 11:30 36.7 94 22 98/60 93 BiPAP 40 12/13/16 11:29 BiPAP 40 12/13/16 11:28 95 22 91 BiPAP/CPAP 40 12/13/16 08:25 40 12/13/16 07:30 91 94 50 12/13/16 07:30 36.7 92 20 94/65 98 BiPAP 60 12/13/16 07:30 BiPAP 60 12/13/16 07:30 91 22 94 BiPAP/CPAP 50 Physical Exam Notes: General: asleep but arousable with sternal rub, frail and weak Head: Normocephalic, +ecchymosis over the right lateral neck wall ENT: PERRL, EOMI, no pharyngeal exudate, mucous membranes moist Chest: +Left pleurex catheter, Requiring BiPAP, diminished and coarse breath sounds with rhonchi in anterior [place] Cardiac: Regular rhythm, slightly tachy, no murmur, no JVD, normal peripheral pulses, good capillary refill Abdominal: NABS x 4 quadrants, soft, nontender to palpation, no rebound, guarding or tenderness, R femoral line in place, : +hopson cath draining clear yellow urine Extremities: + Left AKA, stump looks clear from any signs of infection, no peripheral edema or erythema, calfs nontender to palpation Laboratory Results Last 24 Hours Test 12/14/16 00:53 12/14/16 05:56 White Blood Count 9.78 K/uL Red Blood Count 2.75 M/uL Hemoglobin 7.8 g/dL Hematocrit 25.3 % Mean Corpuscular Volume 92.0 fL Mean Corpuscular Hemoglobin 28.4 pg Mean Corpuscular Hemoglobin Concent 30.8 g/dl Platelet Count 106 K/uL Mean Platelet Volume 9.3 fL Neutrophils (%) (Auto) 93.6 % Lymphocytes (%) (Auto) 2.9 % Monocytes (%) (Auto) 2.9 % Eosinophils (%) (Auto) 0.0 % Basophils (%) (Auto) 0.0 % Neutrophils # (Auto) 9.16 K/uL Lymphocytes # (Auto) 0.28 K/uL Monocytes # (Auto) 0.28 K/uL Eosinophils # (Auto) 0.00 K/uL Basophils # (Auto) 0.00 K/uL RDW Standard Deviation 60.8 fL RDW Coefficient of Variation 18.3 % Immature Granulocyte % (Auto) 0.6 % Immature Granulocyte # (Auto) 0.06 K/uL Red Blood Cell Morphology Unremarkable Sodium Level 145 mmol/L Potassium Level 2.8 mmol/L Chloride Level 105 mmol/L Carbon Dioxide Level 31 mmol/L Anion Gap 9.0 mmol/L Blood Urea Nitrogen 6 mg/dl Creatinine 0.43 mg/dl Est Creatinine Clear Calc Drug Dose 108.2 ml/min Estimated GFR () 136.4 Estimated GFR (Non- 117.6 BUN/Creatinine Ratio 14.9 Random Glucose 105 mg/dl Calcium Level 7.8 mg/dl Magnesium Level 1.8 mg/dl Total Bilirubin 0.7 mg/dl Direct Bilirubin 0.3 mg/dl Aspartate Amino Transf (AST/SGOT) 17 U/L Alanine Aminotransferase (ALT/SGPT) 64 U/L Alkaline Phosphatase 119 U/L Total Creatine Kinase 30 U/L Creatine Kinase MB 0.7 ng/ml Creatine Kinase MB Ratio 2.3 Troponin I 0.356 ng/ml Total Protein 5.6 gm/dl Albumin 3.3 gm/dl Prothrombin Time 13.1 SECONDS Prothromb Time International Ratio 1.2 Activated Partial Thromboplast Time 41.1 SECONDS Partial Thromboplastin Ratio 1.6 Assessment and Plan This is a 71 yo M who was discharged (12/12) however became hypoxic once arrived back at the group home with O2 sats back into the 60s. He was placed on a nonrebreather at 15L O2 and sats improved to 90-92%. His PMHx includes Atrial fib and flutter s/p IVC placement, COPD, necrotic pneumonia, hypoxic respiratory failure, Hx of PE, PVD, Hypothyroidism, decubitus ulcer of the left ischium and sacrum, Hx of left AKA, anal carcinoma in 2004 who presented in septic shock secondary to obstructive pneumonia. Acute Respiratory Distress Acute hypoxia respiratory failure Sepsis secondary to obstructive/necrotizing pneumonia - Pt was febrile overnight, also is now slightly tachycardic with HR at 103 and BP is 95/62 - Back in the ICU for telemetry overflow - Maintain MAP>60, was previously on vasopressors and Normosol for IVFs - currently is not requiring pressors. - CXR 12/14 reviewed: Showing a catheter fragment in the left subclavian vein, extensive bilateral pulmonary airspace opacities. There is a left basilar chest tube present. There is no significant pleural fluid. - Titrate O2 sats to 88-92% -patient is currently on BiPAP - Was placed back on IV abx on admission- vanco, zosyn, and levaquin (this is technically day 6 of IV abx as he never started outpatient regimen with Augmentin as written on discharge).Levaquin stopped 12/13. Will stop zosyn today and add imipenem and consult ID. - BCx from 12/10 were negative, BCx from 12/12 in process, repeated BCx this morning as pt was febrile overnight. - Pleural fluid studies from 12/11 and 12/12 still in process. - WBC 9.78 with left shift - Supportive treatment with incentive spirometry, flutter- pt does not ambulated due to recent left AKA and health, he is too weak/fatigued. Left sided pleural effusion - Pleurex catheter placed by Dr. Jaramillo on 12/09 - plans for all pleural fluid to be sent to lab for cytology as there is concern for malignant effusion with hx of anal carcinoma in 2004- appreciate thoracic med recs - likely malignant, awaiting other 2 cytology reports. - Fluid studies including fungal, gram and AFB are negative from 12/09 - Daily drainage and prn shortness of breath- CXR this morning without pleural fluid - Pt will need follow up with heme/onc within 2-4 weeks for palliative recommendations- discussion of possible bronchoscopy was held while he was an inpatient, decided that this would pose more risk than benefit so was elected not to be done. Anemia - Hgb=7.8,but has been fluctuating, can consider recheck of H&H this afternoon Hypokalemia - K+ 7.2; Overnight was replaced with 40 meq IV, this morning will give another 20 meq IV and 20 PO. Recheck this afternoon. Right Lower extremity Pain - U/S on 12/10 showed superficial popliteal DVT so pt was placed on Lovenox 50 mg BID per dosing per weight -continue - Anti-Xa therapeutic at 1.03 Acute on Chronic COPD - stop Solu-Medrol now, Continue prednisone 40 mg BID and plan for long taper of each dose x at least 3 days, this will take approximately 3 weeks to complete - DuoNebs QID an Q2H prn Acute Transaminitis secondary to shock liver - Follow LFTs, trending downward and improving - Hepatits panel was negative EDDIE - Resolved with aggressive fluid resuscitation with Cr.= 0.35 Elevated Glucose - Continue on Lantus 5 U BID only when glucose exceeds 140, if less than this do not administer insulin, --- cont with ISS, hypoglycemic ppx on board, can back this off as steriod tapers - Hgb A1C= 6.1 in September 2016, no need to repeat. Hypophosphatemia - Decreased at 1.6, replaced this morning Elevated Troponin - Secondary to demand ischemia associated with septic shock - 0.359 last evening - stable - Resolved Atrial Fibrillation - Cont amiodarone 200 mcg PO BID Hypothyroidism: Cont levothyroxine 225 mcg daily Ileus: - CT abd/pelvis showing dilated bowel loops likely determinate of ileus, resolving now, allowed a clear liquid diet - Pt with c/o LUQ pain, monitor with abdominal checks, abd nondistended and soft today Sacral decubitus ulceration - Turn and repo Q2H - Wound care consultation - Possible recurrence of malignancy with hx of anal carcinoma Goals of Care: Pt wished to remain alive to see his daughter get on January 02. I spoke with palliative at bedside today. Due to aggitation overnight the patient recieved haldol and ativan, and since then has not been awake enough to obtain viable information or hold a goals of care discussion. The pt is well known to our palliative team. When pt is more alert they will see him - greatly appreciate their help with this difficult case. Code Status: FULL CODE Disposition: Remains on telemetry, poor prognosis, unlikely that he will make it through this hospital stay.
[2016-12-14] MEDS: EUCERIN CR 120 GM JAR EXT SCH ×2 (07:57→21:14)
[2016-12-14] MEDS ORDERED: POTASSIUM CHLR 10MEQ / WTR IV SCH (08:00)
[2016-12-14] MEDS ORDERED: ACETAMINOPHEN 650 MG SUPP PR PRN (08:45)
[2016-12-14 09:22] LABS: CKMB/CK RATIO 1.9 (0-3.0)
[2016-12-14] MEDS: VANCOMYCIN INJ 800 MG in SODIUM CHLORIDE 0.9% 250ML 250 ML IV SCH ×2 (10:14→20:22)
[2016-12-14] MEDS: PANTOprazole INJ 40 MG in SYRINGE 0 ML IV SCH (11:49)
[2016-12-14] MEDS: ENOXAPARIN 60 MG/0.6 ML SYR SQ SCH ×2 (11:50→23:22)
[2016-12-14] MEDS: IMIPENEM/CILASTATIN IV 500 MG in DEXTROSE 5% 100ML 100 ML IV SCH ×2 (12:39→18:25)
[2016-12-14 13:22] LABS: CALCIUM 8.3 mg/dl (8.5-10.1); CREATININE 0.41 mg/dl (0.60-1.40); MAGNESIUM 2.3 mg/dl (1.8-2.4); POTASSIUM 2.7 mmol/L (3.5-5.1)
[2016-12-14] MEDS: POTASSIUM CHLR 20 MEQ / WTR 20 MEQ in PREMIXED WATER 100 ML IV SCH ×3 (14:35→18:00)
--- NOTE | 2016-12-14 15:07 | Palliative Care Consultation ---
Consultation Date of Consultation: December 14, 2016. Requesting Physician: Kaleigh Alarcon PA-C Attending Physician: Kaleigh Alarcon PA-C, Dr. Bro Reason for Consultation: Goals of care History of Present Illness This 71 year old male patient presented to the ED three days ago, after having just been discharged from the hospital a couple hours earlier, from [facility] with c/o respiratory distress. History obtained from provider and record. Patient has visited the hospital eight times in the last six months with afib/flutter, COPD, lower extremity ischemia s/p LE amputation, and respiratory failure. Most recently, admitted to ICU from 12/09-12/12 when he was here with COPD exacerbation, and new probable lung cancer found on CT scan. Patient opted out of biopsying at the time given that his overall prognosis was poor. He had a large left pleural effusion for which he had a Pleur-X catheter inserted which is still intact-- no malignant cells shown on pathology. New pleural fluid pathology pending at this time. He has lost 20-25lbs in last month , overall condition is rapidly declining. This admission, patient more agitated , required lorazepam and haloperidol over night. He is on bipap and lethargic/ nearly obtunded at this time. Patient has a living will and POLST done in October 2016, which indicate he would like any and all medical treatment, wants to be full code. Previously to this serious illness/decline, patient ferrer a living will which stated that in end-stage, he wanted none of these interventions and just wanted to be made comfortable. Palliative care consulted to assist in establishing goals of care. I am unable to speak with the patient at this time due to his lethargy and being on bipap-- he is unable to participate in conversation. However, I did meet with the patient along with project drilling engineer, Dr. Zaman, three days ago before he was discharged from the hospital and returning shortly after. Palliative care not consulted at the time, but I provided support during goals of care conversation. At that time, patient stated he knew his prognosis was poor, but he had the will and desire to live until January 02 when his sister was to get . He did not want to change his code status or goals of care at that time for that reason. After January 02, patient said he was not afraid to and might be agreeable to hospice at that time. The plan was to continue antibiotics and treatment at the [facility]. I will be more than happy to meet with the patient and have another goals of care discussion if/when his mental status improves and is able to participate in conversation. Past Medical/Surgical History Medical History: Acute kidney injury Afib Anticoagulation goal of INR 2 to 3 Atrial fibrillation and flutter COPD History of anal cancer Left above knee amputation Pulmonary embolism Hypothyroidism Peripheral arterial disease Peripheral vascular disease Social History Smoking Status: Former Smoker History of Alcohol Use: No Drug Use: none Marital Status: single Housing Status: other Occupation Status: other Review of Systems unable to obtain Allergies Coded Allergies: Aspirin (Verified Allergy, Unknown, 12/12/16) Procaine (Verified Allergy, Unknown, 12/12/16) Rosuvastatin (Verified Allergy, Unknown, UNKNOWN, 12/06/16) Medications Current Inpatient Medications Medications (Trade) Dose Ordered Sig/Malcolm Route Start Time Stop Time Status Last Admin Dose Admin Morphine Sulfate (MoRPHine SULFATE INJ) 2 mg Q30M PRN IV 12/13/16 00:15 12/27/16 00:14 Amiodarone HCl (Cordarone Tab) 200 mg BID PO 12/13/16 09:00 01/12/17 08:59 12/13/16 20:49 200 MG Diphenhydramine HCl (Benadryl Cap) 50 mg QPM PO 12/13/16 21:00 01/12/17 20:59 12/13/16 20:47 50 MG Albuterol/ Ipratropium (Duoneb) 3 ml QIDR INH 12/13/16 08:00 01/12/17 07:59 12/14/16 11:58 3 ML Levothyroxine Sodium (Synthroid Tab) 225 mcg DAILYBB PO 12/13/16 06:00 01/12/17 05:59 Enteral Nutritional Formula (Boost) 1 can TIDM PO 12/13/16 07:15 01/12/17 07:59 Multi-Ingredient Ointment (Eucerin Unscented Cr) 1 appln BID EXT 12/13/16 09:00 01/12/17 08:59 12/14/16 07:57 1 APPLN Hydrocortisone (Hydrocortisone 2.5% Crm) 1 appln TID PRN EXT 12/13/16 03:15 01/12/17 03:14 Multi-Ingredient Ointment PRN PRN EXT 12/13/16 03:00 01/12/17 02:59 Pantoprazole Sodium/Syringe (Protonix Inj/ Syringe) 10 ml @ 5 mls/min DAILY@11 IV 12/13/16 11:00 01/12/17 10:59 12/14/16 11:49 5 MLS/MIN Ondansetron HCl (Zofran Inj) 4 mg Q6H PRN IV 12/13/16 00:15 01/12/17 00:14 Guaifenesin (Mucinex Contr Rel Tab) 600 mg BID PO 12/13/16 09:00 01/12/17 08:59 12/13/16 20:47 600 MG Vancomycin HCl (Consult) 1 ea UD PRN N/A 12/13/16 03:15 01/12/17 03:14 Enoxaparin Sodium (Lovenox Inj) 50 mg Q12H SQ 12/13/16 11:00 01/12/17 10:59 12/14/16 11:50 50 MG Prednisone 40 mg 40 mg BID PO 12/13/16 21:00 01/12/17 20:59 12/13/16 20:49 40 MG Vancomycin HCl/ Sodium Chloride (Vancomycin Inj/ Nss 250ml) 266 ml @ 125 mls/hr Q10H IV 12/13/16 14:00 12/20/16 13:59 12/14/16 10:14 125 MLS/HR Lorazepam 0.5 mg 0.5 mg Q6H PRN IV 12/13/16 23:30 01/12/17 23:29 Imipenem/ Cilastatin Sodium/ Dextrose (Primaxin Iv/D5 100ml) 110 ml @ 100 mls/hr Q6H IV 12/14/16 12:00 12/21/16 11:59 12/14/16 12:39 100 MLS/HR Acetaminophen 650 mg 650 mg Q4H PRN [place] 12/14/16 08:45 01/13/17 08:44 12/14/16 09:24 650 MG Potassium Chloride/Prmx (Kcl 20 Meq / Wtr/Premixed Water) 100 ml @ 50 mls/hr Q2H IV 12/14/16 14:00 12/14/16 19:59 Physical Exam Date Time Temp Pulse Resp B/P Pulse Ox O2 Delivery O2 Flow Rate FiO2 12/14/16 11:58 90 12 97 BiPAP/CPAP 40 12/14/16 11:58 90 97 40 12/14/16 11:30 BiPAP 40 12/14/16 11:15 37.1 90 20 103/58 96 BiPAP 40 12/14/16 11:02 90 22 103/58 96 12/14/16 11:00 91 21 96 12/14/16 10:02 93 22 109/64 95 12/14/16 10:00 93 23 95 12/14/16 09:02 95 22 108/60 95 12/14/16 09:00 96 22 96 12/14/16 08:02 106 20 109/65 91 12/14/16 08:00 103 20 90 12/14/16 07:34 103 24 91 BiPAP/CPAP 40 12/14/16 07:30 37.6 97 24 116/66 96 BiPAP 40 12/14/16 07:30 BiPAP 40 12/14/16 07:02 100 25 111/66 94 12/14/16 07:00 100 19 94 12/14/16 05:14 96 93 40 12/14/16 04:00 38.4 101 26 95/62 92 BiPAP 40 12/14/16 04:00 BiPAP 40 12/14/16 02:27 100 92 40 12/14/16 00:00 115 92 40 12/13/16 23:59 BiPAP 40 12/13/16 23:59 37.5 100 26 114/83 93 BiPAP 40 12/13/16 20:01 103 91 40 12/13/16 20:01 103 24 91 BiPAP/CPAP 40 12/13/16 20:00 BiPAP 40 12/13/16 20:00 38.3 107 29 114/69 90 BiPAP 40 12/13/16 16:00 BiPAP 40 12/13/16 16:00 36.4 100 22 100/66 97 BiPAP 40 12/13/16 15:20 98 27 92 BiPAP/CPAP 40 12/13/16 15:20 98 92 40 General Appearance: + cachetic, + thin Neck: supple, no JVD Respiratory: no respiratory distress, no accessory muscle use, + decreased breath sounds (bilateral bases. occasional rhonchi), + pertinent finding (bipap mask on) Cardiovascular: regular rate, rhythm, no edema, + pertinent finding (right pedal pulse is weak, Left AKA) Abdomen: soft, + pertinent finding (no bowel sounds appreciated. bounding abdominal aortic pulse, no mass appreciated) Neurologic/Psychiatric: + pertinent finding (lethargic/obtunded) Skin: + pallor Laboratory Results Last 24 Hours Test 12/14/16 00:53 12/14/16 05:56 12/14/16 08:32 12/14/16 12:00 White Blood Count 9.78 K/uL Red Blood Count 2.75 M/uL Hemoglobin 7.8 g/dL Hematocrit 25.3 % Mean Corpuscular Volume 92.0 fL Mean Corpuscular Hemoglobin 28.4 pg Mean Corpuscular Hemoglobin Concent 30.8 g/dl Platelet Count 106 K/uL Mean Platelet Volume 9.3 fL Neutrophils (%) (Auto) 93.6 % Lymphocytes (%) (Auto) 2.9 % Monocytes (%) (Auto) 2.9 % Eosinophils (%) (Auto) 0.0 % Basophils (%) (Auto) 0.0 % Neutrophils # (Auto) 9.16 K/uL Lymphocytes # (Auto) 0.28 K/uL Monocytes # (Auto) 0.28 K/uL Eosinophils # (Auto) 0.00 K/uL Basophils # (Auto) 0.00 K/uL RDW Standard Deviation 60.8 fL RDW Coefficient of Variation 18.3 % Immature Granulocyte % (Auto) 0.6 % Immature Granulocyte # (Auto) 0.06 K/uL Red Blood Cell Morphology Unremarkable Sodium Level 145 mmol/L 146 mmol/L Potassium Level 2.8 mmol/L 2.7 mmol/L Chloride Level 105 mmol/L 105 mmol/L Carbon Dioxide Level 31 mmol/L 33 mmol/L Anion Gap 9.0 mmol/L 8.0 mmol/L Blood Urea Nitrogen 6 mg/dl 6 mg/dl Creatinine 0.43 mg/dl 0.41 mg/dl Est Creatinine Clear Calc Drug Dose 108.2 ml/min 113.5 ml/min Estimated GFR () 136.4 139.0 Estimated GFR (Non- 117.6 120.0 BUN/Creatinine Ratio 14.9 15.0 Random Glucose 105 mg/dl 106 mg/dl Calcium Level 7.8 mg/dl 8.3 mg/dl Magnesium Level 1.8 mg/dl 2.3 mg/dl Total Bilirubin 0.7 mg/dl Direct Bilirubin 0.3 mg/dl Aspartate Amino Transf (AST/SGOT) 17 U/L Alanine Aminotransferase (ALT/SGPT) 64 U/L Alkaline Phosphatase 119 U/L Total Creatine Kinase 30 U/L 27 U/L Creatine Kinase MB 0.7 ng/ml 0.5 ng/ml Creatine Kinase MB Ratio 2.3 1.9 Troponin I 0.356 ng/ml 0.337 ng/ml Total Protein 5.6 gm/dl Albumin 3.3 gm/dl Prothrombin Time 13.1 SECONDS Prothromb Time International Ratio 1.2 Activated Partial Thromboplast Time 41.1 SECONDS Partial Thromboplastin Ratio 1.6 Assessment & Plan Palliative Performance Scale: 10 % Problem list: Lethargy/obtundation Respiratory distress and failure- on bipap at this time Sepsis 2/2 obstructive/necrotizing pneumonia- blood cultures pending Left pleural effusion- chest tube present Possible/probably lung ca Anemia COPD exacerbation Acute transaminitis EDDIE Electrolyte imbalances Ileus Sacral decubitus ulceration Goals of care (Z51.5) Palliative care recommendations: -Full code per previous discussion with patient, myself, and Dr. Nesbitt. -Patient is now opening eyes to touch. Was able to shake head "no" to pain, but cannot stay awake or have conversation. -Advanced directive is in EMR- indicates full treatment and full code, however, it has no witness signature. POLST is signed and valid-- reads as follows: CPR/ attempt resuscitation, Full treatment with addition order "Interventions for only so long as quality can be maintained including CPR", antibiotics if life can be prolonged, and trial period of artificial hydration/nutrition. An added goal on the POLST states, "Prolong life as long as quality will be preserved." -Advanced directive and POLST indicate that Dana Crook, patient's daughter, is his POA/surrogate decision maker. Number listed for her is [phone]. I will not be contacting her due to patient's inmate status. However, I think it may be reasonable for primary provider to contact the daughter if there is no improvement, with the long-term's permission, as she will be the decision maker at that point. -Given extensive history with frequent hospitalizations, recent significant weight loss, possible cancer, multiple comorbidities-- patient has a very poor prognosis. Thank you kindly for this consult. I will be happy to follow along.
--- NOTE | 2016-12-14 16:04 | Medical Consult ---
Consultation Date of Consultation: December 14, 2016. Attending Physician: Jonathan Bro D.O. Reason for Consultation: Imipenem History of Present Illness Patient is a 71 yo male who presented to the ED from [facility] with respiratory distress. The patient was recently admitted to [facility] with concerns of left lower lobe pulmonary infection with postobstructive pneumonia, necrotic tumor, friction from prior PE with secondary infection, or H CT. The patient was previously treated with Zyvox and Zosyn. He had blood and sputum cultures completed which ultimately showed no growth. He was discharged back to [facility] with p.o. Augmentin, and shortly after arrival was noted to have hypoxia once again and returned to [facility] via EMS. Since current admission, the patient had a repeat x-ray which showed persistent bilateral pulmonary airspace opacities. His white blood cell count on admission was 11.41. His hemoglobin was 7.8 this morning. He was noted to have troponin up to 0.356 since admission. Creatinine has been stable and was 0.4 on this morning. Blood cultures since current admission are showing no growth. MRSA nasal was negative. Patient is currently IV vancomycin and imipenem for broad-spectrum coverage. Past Medical/Surgical History Medical Problems: (1) Atrial flutter with rapid ventricular response Status: Acute (2) Chest pain Status: Acute (3) COPD with exacerbation Status: Acute (4) Dizzy Status: Acute (5) Hypotension Status: Acute (6) Hypothyroid Status: Acute (7) Hypoxemia Status: Acute (8) Hypoxia Status: Acute (9) Left chest pressure Status: Acute (10) PNA (pneumonia) Status: Acute (11) Pulmonary embolism Status: Acute (12) Rapid atrial fibrillation Status: Acute (13) Sepsis Status: Acute Medical Problems: (1) Acute kidney injury (2) Acute respiratory failure with hypoxia (3) Afib (4) Anticoagulation goal of INR 2 to 3 (5) ARDS (adult respiratory distress syndrome) (6) Atrial fibrillation and flutter (7) Atrial flutter with rapid ventricular response (8) Atrial flutter, chronic (9) COPD (chronic obstructive pulmonary disease) (10) Decubital ulcer (11) Decubitus ulcer of left buttock (12) 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, extremities (13) Hemoptysis (14) History of anal cancer (15) History of left above knee amputation (16) History of pulmonary embolism (17) Hypothyroidism (18) Peripheral arterial disease (19) Presence of IVC filter (20) PVD (peripheral vascular disease) Family History No pertinent family history Noncontributory Social History Smoking Status: Former Smoker Smokeless Tobacco Use: No Alcohol Use: none Drug Use: none Marital Status: single Housing Status: other Occupation Status: other Allergies Coded Allergies: Aspirin (Verified Allergy, Unknown, 12/12/16) Procaine (Verified Allergy, Unknown, 12/12/16) Rosuvastatin (Verified Allergy, Unknown, UNKNOWN, 12/06/16) Home Medications Reported Home Medications Medications Dose Route/Sig Max Daily Dose Days Date Category Dose Instructions Duoneb (Ipratropium-Albuterol) 3 Ml Nebu 1 Treatment INH QID 12/12/16 Reported Midodrine Hcl 10 Mg Tab 5 Mg PO TID 12/12/16 Reported Prednisone 10 Mg Tab 10 Mg PO UD 12/12/16 Reported Amoxicillin/Clavulanate P (Amoxicillin & Pot Clavulanate) 1 Tab Tab 875 Mg PO BIDM 6 12/12/16 Rx Hydrocortisone (Hydrocortisone (Topical)) 2.5 % Lot 1 Appln TOP TID PRN 12/09/16 Reported Desitin Rapid Relief (Zinc Oxide (Topical)) 13 % Cre 1 Appln TOP DIRECTED 12/09/16 Reported APPLY TO SACRAL AREA NEEDED FOR INCONTINENCE Duoderm Cgf (Control Gel Formula Dressing) 1 Mis Mis 1 Patch TD [id number] 12/09/16 Reported TAKE/PERFORM ONCE DAILY. CHANGE EVERY 3 DAYS AND NEEDED Hemocyte (Ferrous Fumarate) 324 Mg Tab 324 Mg PO BID 12/09/16 Reported Gnp Stool Softener (Docusate Sodium) 250 Mg Cap 250 Mg PO DAILY PRN 12/06/16 Reported Nutritional Drink (Nutritional Supplements) 1 Liq Liq 1 Can PO TIDM 12/06/16 Reported Lubriskin (Emollient) 1 Lot Lot 1 Appln TOP BID 12/06/16 Reported TO RIGHT LOW EXTREMITY Reglan (Metoclopramide Hcl) 5 Mg Tab 5 Mg PO AC 12/06/16 Reported Benadryl (Diphenhydramine Hcl) 25 Mg Cap 50 Mg PO QPM 12/06/16 Reported Tylenol W/Codeine #3 (Acetaminophen/Codeine Phosphate) 300 Mg/30 Mg Tab 1 Tab PO Q4H WHILE AWAKE PRN 12/06/16 Reported Lopressor (Metoprolol Tartrate) 25 Mg Tab 12.5 Mg PO BID 12/06/16 Reported Cordarone (Amiodarone Hcl) 200 Mg Tab 200 Mg PO BID 12/06/16 Reported Zofran (Ondansetron HCl) 8 Mg Tab 8 Mg PO TID PRN 10/18/16 Reported Tylenol (Acetaminophen) 325 Mg Tab 325 Mg PO TID PRN 10/18/16 Reported Omeprazole 20 Mg Tab 40 Mg PO DAILY 10/18/16 Reported Synthroid (Levothyroxine Sodium) 75 Mcg Tab 225 Mcg PO DAILY 10/18/16 Reported 3 TABLETS DAILY Guaifenesin 400 Mg Tab 800 Mg PO TID 10/18/16 Reported Pamelor (Nortriptyline HCl) 10 Mg Cap 10 Mg PO HS 09/03/16 Reported CRUSH Tudorza Pressair (Aclidinium Thornton) 400 Mcg/Act Aer 1 Puff INH BID 08/22/16 Reported Imodium (Loperamide HCl) 2 Mg Cap 2 Mg PO BID 07/28/16 Reported Alvesco (Ciclesonide) 160 Mcg/Act Aer 1 Puff PO BID 07/28/16 Reported Ventolin Hfa (Albuterol) 200 Puffs/[id number] Mcg Aers 2 Puffs INH QID PRN 07/28/16 Reported Current Inpatient Medications Current Inpatient Medications Medications (Trade) Dose Ordered Sig/Malcolm Route Start Time Stop Time Status Last Admin Dose Admin Morphine Sulfate (MoRPHine SULFATE INJ) 2 mg Q30M PRN IV 12/13/16 00:15 12/27/16 00:14 Amiodarone HCl (Cordarone Tab) 200 mg BID PO 12/13/16 09:00 01/12/17 08:59 12/13/16 20:49 200 MG Diphenhydramine HCl (Benadryl Cap) 50 mg QPM PO 12/13/16 21:00 01/12/17 20:59 12/13/16 20:47 50 MG Albuterol/ Ipratropium (Duoneb) 3 ml QIDR INH 12/13/16 08:00 01/12/17 07:59 12/14/16 15:39 3 ML Levothyroxine Sodium (Synthroid Tab) 225 mcg DAILYBB PO 12/13/16 06:00 01/12/17 05:59 Enteral Nutritional Formula (Boost) 1 can TIDM PO 12/13/16 07:15 01/12/17 07:59 Multi-Ingredient Ointment (Eucerin Unscented Cr) 1 appln BID EXT 12/13/16 09:00 01/12/17 08:59 12/14/16 07:57 1 APPLN Hydrocortisone (Hydrocortisone 2.5% Crm) 1 appln TID PRN EXT 12/13/16 03:15 01/12/17 03:14 Multi-Ingredient Ointment PRN PRN EXT 12/13/16 03:00 01/12/17 02:59 Pantoprazole Sodium/Syringe (Protonix Inj/ Syringe) 10 ml @ 5 mls/min DAILY@11 IV 12/13/16 11:00 01/12/17 10:59 12/14/16 11:49 5 MLS/MIN Ondansetron HCl (Zofran Inj) 4 mg Q6H PRN IV 12/13/16 00:15 01/12/17 00:14 Guaifenesin (Mucinex Contr Rel Tab) 600 mg BID PO 12/13/16 09:00 01/12/17 08:59 12/13/16 20:47 600 MG Vancomycin HCl (Consult) 1 ea UD PRN N/A 12/13/16 03:15 01/12/17 03:14 Enoxaparin Sodium (Lovenox Inj) 50 mg Q12H SQ 12/13/16 11:00 01/12/17 10:59 12/14/16 11:50 50 MG Prednisone 40 mg 40 mg BID PO 12/13/16 21:00 01/12/17 20:59 12/13/16 20:49 40 MG Vancomycin HCl/ Sodium Chloride (Vancomycin Inj/ Nss 250ml) 266 ml @ 125 mls/hr Q10H IV 12/13/16 14:00 12/20/16 13:59 12/14/16 10:14 125 MLS/HR Lorazepam 0.5 mg 0.5 mg Q6H PRN IV 12/13/16 23:30 01/12/17 23:29 Imipenem/ Cilastatin Sodium/ Dextrose (Primaxin Iv/D5 100ml) 110 ml @ 100 mls/hr Q6H IV 12/14/16 12:00 12/21/16 11:59 12/14/16 12:39 100 MLS/HR Acetaminophen 650 mg 650 mg Q4H PRN [place] 12/14/16 08:45 01/13/17 08:44 12/14/16 09:24 650 MG Potassium Chloride/Prmx (Kcl 20 Meq / Wtr/Premixed Water) 100 ml @ 50 mls/hr Q2H IV 12/14/16 14:00 12/14/16 19:59 12/14/16 14:35 50 MLS/HR Review of Systems Unable to obtain ROS due to patient state Physical Exam Date Time Temp Pulse Resp B/P Pulse Ox O2 Delivery O2 Flow Rate FiO2 12/14/16 15:39 90 12 97 BiPAP/CPAP 40 12/14/16 11:58 90 12 97 BiPAP/CPAP 40 12/14/16 11:58 90 97 40 12/14/16 11:30 BiPAP 40 12/14/16 11:15 37.1 90 20 103/58 96 BiPAP 40 12/14/16 11:02 90 22 103/58 96 12/14/16 11:00 91 21 96 12/14/16 10:02 93 22 109/64 95 12/14/16 10:00 93 23 95 12/14/16 09:02 95 22 108/60 95 12/14/16 09:00 96 22 96 12/14/16 08:02 106 20 109/65 91 12/14/16 08:00 103 20 90 12/14/16 07:34 103 24 91 BiPAP/CPAP 40 12/14/16 07:30 37.6 97 24 116/66 96 BiPAP 40 12/14/16 07:30 BiPAP 40 12/14/16 07:02 100 25 111/66 94 12/14/16 07:00 100 19 94 12/14/16 05:14 96 93 40 12/14/16 04:00 38.4 101 26 95/62 92 BiPAP 40 12/14/16 04:00 BiPAP 40 12/14/16 02:27 100 92 40 12/14/16 00:00 115 92 40 12/13/16 23:59 BiPAP 40 12/13/16 23:59 37.5 100 26 114/83 93 BiPAP 40 12/13/16 20:01 103 91 40 12/13/16 20:01 103 24 91 BiPAP/CPAP 40 12/13/16 20:00 BiPAP 40 12/13/16 20:00 38.3 107 29 114/69 90 BiPAP 40 General Appearance: + cachetic, + pertinent finding (cpap mask in place, patient does not awake to coversation/attempted awakening) Head: atraumatic Neck: trachea midline Respiratory/Chest: + pertinent finding (CPAP in place. Coarse breath sounds throughout) Cardiovascular: regular rate, rhythm Extremities/Musculoskelatal: + pertinent finding (thin. No edema) Neurologic/Psych: + pertinent finding (Unarousable) Skin: normal color, warm/dry, no rash Laboratory Results CHEST ONE VIEW PORTABLE CLINICAL HISTORY: hypoxia COMPARISON STUDY: 12/12/2016 FINDINGS: The cardiac and mediastinal contours remain stable. A catheter fragment is again visualized in the left subclavian vein. There are extensive bilateral pulmonary airspace opacities. A line shadow within the left hemithorax likely represents a skinfold. There is a left basilar chest tube present. There is no significant pleural fluid.[ IMPRESSION: Persistent bilateral pulmonary airspace opacities. Item Value Date Time Blood Culture Received 12/14/16 09 Blood Pending Blood Culture Received 12/14/16 09 Blood Pending MRSA DNA Surveillance Screen - Final Complete 12/13/16 0229 Nasal Specimen Negative for MRSA by DNA Probe Last 24 Hours Test 12/14/16 00:53 12/14/16 05:56 12/14/16 08:32 12/14/16 12:00 White Blood Count 9.78 K/uL Red Blood Count 2.75 M/uL Hemoglobin 7.8 g/dL Hematocrit 25.3 % Mean Corpuscular Volume 92.0 fL Mean Corpuscular Hemoglobin 28.4 pg Mean Corpuscular Hemoglobin Concent 30.8 g/dl Platelet Count 106 K/uL Mean Platelet Volume 9.3 fL Neutrophils (%) (Auto) 93.6 % Lymphocytes (%) (Auto) 2.9 % Monocytes (%) (Auto) 2.9 % Eosinophils (%) (Auto) 0.0 % Basophils (%) (Auto) 0.0 % Neutrophils # (Auto) 9.16 K/uL Lymphocytes # (Auto) 0.28 K/uL Monocytes # (Auto) 0.28 K/uL Eosinophils # (Auto) 0.00 K/uL Basophils # (Auto) 0.00 K/uL RDW Standard Deviation 60.8 fL RDW Coefficient of Variation 18.3 % Immature Granulocyte % (Auto) 0.6 % Immature Granulocyte # (Auto) 0.06 K/uL Red Blood Cell Morphology Unremarkable Sodium Level 145 mmol/L 146 mmol/L Potassium Level 2.8 mmol/L 2.7 mmol/L Chloride Level 105 mmol/L 105 mmol/L Carbon Dioxide Level 31 mmol/L 33 mmol/L Anion Gap 9.0 mmol/L 8.0 mmol/L Blood Urea Nitrogen 6 mg/dl 6 mg/dl Creatinine 0.43 mg/dl 0.41 mg/dl Est Creatinine Clear Calc Drug Dose 108.2 ml/min 113.5 ml/min Estimated GFR () 136.4 139.0 Estimated GFR (Non- 117.6 120.0 BUN/Creatinine Ratio 14.9 15.0 Random Glucose 105 mg/dl 106 mg/dl Calcium Level 7.8 mg/dl 8.3 mg/dl Magnesium Level 1.8 mg/dl 2.3 mg/dl Total Bilirubin 0.7 mg/dl Direct Bilirubin 0.3 mg/dl Aspartate Amino Transf (AST/SGOT) 17 U/L Alanine Aminotransferase (ALT/SGPT) 64 U/L Alkaline Phosphatase 119 U/L Total Creatine Kinase 30 U/L 27 U/L Creatine Kinase MB 0.7 ng/ml 0.5 ng/ml Creatine Kinase MB Ratio 2.3 1.9 Troponin I 0.356 ng/ml 0.337 ng/ml Total Protein 5.6 gm/dl Albumin 3.3 gm/dl Prothrombin Time 13.1 SECONDS Prothromb Time International Ratio 1.2 Activated Partial Thromboplast Time 41.1 SECONDS Partial Thromboplastin Ratio 1.6 Assessment & Plan Patient with acute hypoxia, left sided pleural effusion, and sepsis secondary to obstructive/necrotizing pneumonia versus necrotic tumor/infarction from prior PE. He is currently on IV Vancomycin and Imipenem. Feel that this coverage is appropriate pending further workup with recent hospitalization and worsening course on PO Augmentin prior to readmission. Will follow blood cultures and adjust abx as able. PROVIDER ADDENDUM: Patient examined and reviewed with Ms. Belle. Agree with above assessment.
[2016-12-14 16:23] LABS: HEMATOCRIT 26.1 % (42-52)
[2016-12-14] MEDS ORDERED: VANCOMYCIN TROUGH ONE (19:30)
--- NOTE | 2016-12-14 23:29 | Pharmacy Progress Note ---
Pharmacy Antibiotic Prog Note Date of Service December 14, 2016. Subjective The patient is currently receiving vancomycin 800 mg IV every 10 hours. The patient is currently on day # 3 of vancomycin IV therapy. Objective Height (Feet): 5 Height (Inches): 5.00 Weight (Kilograms): 47.200 Levels: Item Value Date Time Vancomycin Level Trough 12.1 mcg/ml 12/14/161951 Lab Results (24hrs): Test 12/14/16 00:53 12/14/16 05:56 12/14/16 08:32 12/14/16 12:00 White Blood Count 9.78 K/uL (4.8-10.8) Red Blood Count 2.75 M/uL (4.7-6.1) Hemoglobin 7.8 g/dL (14.0-18.0) Hematocrit 25.3 % (42-52) Mean Corpuscular Volume 92.0 fL (80-100) Mean Corpuscular Hemoglobin 28.4 pg (25-34) Mean Corpuscular Hemoglobin Concent 30.8 g/dl (32-36) Platelet Count 106 K/uL (130-400) Mean Platelet Volume 9.3 fL (7.4-10.4) Neutrophils (%) (Auto) 93.6 % Lymphocytes (%) (Auto) 2.9 % Monocytes (%) (Auto) 2.9 % Eosinophils (%) (Auto) 0.0 % Basophils (%) (Auto) 0.0 % Neutrophils # (Auto) 9.16 K/uL (1.4-6.5) Lymphocytes # (Auto) 0.28 K/uL (1.2-3.4) Monocytes # (Auto) 0.28 K/uL (0.11-0.59) Eosinophils # (Auto) 0.00 K/uL (0-0.5) Basophils # (Auto) 0.00 K/uL (0-0.2) RDW Standard Deviation 60.8 fL (36.4-46.3) RDW Coefficient of Variation 18.3 % (11.5-14.5) Immature Granulocyte % (Auto) 0.6 % Immature Granulocyte # (Auto) 0.06 K/uL (0.00-0.02) Red Blood Cell Morphology Unremarkable Sodium Level 145 mmol/L (136-145) 146 mmol/L (136-145) Potassium Level 2.8 mmol/L (3.5-5.1) 2.7 mmol/L (3.5-5.1) Chloride Level 105 mmol/L (98-107) 105 mmol/L (98-107) Carbon Dioxide Level 31 mmol/L (21-32) 33 mmol/L (21-32) Anion Gap 9.0 mmol/L (3-11) 8.0 mmol/L (3-11) Blood Urea Nitrogen 6 mg/dl (7-18) 6 mg/dl (7-18) Creatinine 0.43 mg/dl (0.60-1.40) 0.41 mg/dl (0.60-1.40) Est Creatinine Clear Calc Drug Dose 108.2 ml/min 113.5 ml/min Estimated GFR () 136.4 139.0 Estimated GFR (Non- 117.6 120.0 BUN/Creatinine Ratio 14.9 (10-20) 15.0 (10-20) Random Glucose 105 mg/dl (70-99) 106 mg/dl (70-99) Calcium Level 7.8 mg/dl (8.5-10.1) 8.3 mg/dl (8.5-10.1) Magnesium Level 1.8 mg/dl (1.8-2.4) 2.3 mg/dl (1.8-2.4) Total Bilirubin 0.7 mg/dl (0.2-1) Direct Bilirubin 0.3 mg/dl (0-0.2) Aspartate Amino Transf (AST/SGOT) 17 U/L (15-37) Alanine Aminotransferase (ALT/SGPT) 64 U/L (12-78) Alkaline Phosphatase 119 U/L (45-117) Total Protein 5.6 gm/dl (6.4-8.2) Albumin 3.3 gm/dl (3.4-5.0) Prothrombin Time 13.1 SECONDS (9.0-12.0) Prothromb Time International Ratio 1.2 (0.9-1.1) Activated Partial Thromboplast Time 41.1 SECONDS (21.0-31.0) Partial Thromboplastin Ratio 1.6 Total Creatine Kinase 27 U/L (39-308) Creatine Kinase MB 0.5 ng/ml (0.5-3.6) Creatine Kinase MB Ratio 1.9 (0-3.0) Troponin I 0.337 ng/ml (0-0.045) Test 12/14/16 16:16 12/14/16 19:52 Hemoglobin 8.3 g/dL (14.0-18.0) Hematocrit 26.1 % (42-52) Total Creatine Kinase 20 U/L (39-308) Creatine Kinase MB 0.8 ng/ml (0.5-3.6) Creatine Kinase MB Ratio 4.0 (0-3.0) Troponin I 0.250 ng/ml (0-0.045) Vancomycin Level Trough 12.1 mcg/ml (SEE COMMENT) Recent Pertinent Medications Primaxin 500mg IV q 6h Levaquin 500mg IV q 24h. Assessment & Plan Patient with acute hypoxia, left sided pleural effusion, and sepsis secondary to obstructive/necrotizing pneumonia versus necrotic tumor/infarction from prior PE. He is continuing on IV vancomycin for now as per ID recommendations. This vancomycin drug level is Subtherapeutic. Change to vancomycin 800 mg IV every 8 hours. Goal peak level estimate: between 35 - 40 mcg/mL. Goal trough level estimate: between 17 - 20 mcg/mL. Peak and trough or random level has been ordered for: 12/15/16 prior to 2000 dose. Pharmacy will continue to follow and will adjust dose/frequency as necessary. Thank you
[2016-12-15] VITALS (18 sets, daily range): BP systolic 103–120; BP diastolic 63–74; PULSE 79–115; TEMP 35.6–37.2; O2SAT 90–100
[2016-12-15] MEDS: IMIPENEM/CILASTATIN IV 500 MG in DEXTROSE 5% 100ML 100 ML IV SCH ×5 (00:10→23:40)
[2016-12-15] MEDS: VANCOMYCIN INJ 800 MG in SODIUM CHLORIDE 0.9% 250ML 250 ML IV SCH ×3 (04:30→20:42)
[2016-12-15 05:57] LABS: BASO % 0.1 %; BASO ABS # 0.01 K/uL (0-0.2); COMPLETE YES; LYMPH % 2.4 %; LYMPH ABS # 0.34 K/uL (1.2-3.4); MEAN CELL VOLUME 94.2 fL (80-100); MEAN CORPUSCULAR HEMOGLOBIN 27.7 pg (25-34); MEAN CORPUSCULAR HGB CONC 29.4 g/dl (32-36); MEAN PLATELET VOLUME 9.9 fL (7.4-10.4); MONO % 4.6 %; NEUT % 91.9 %; PLATELET COUNT 117 K/uL (130-400); RED BLOOD COUNT 3.29 M/uL (4.7-6.1); WHITE BLOOD COUNT 14.41 K/uL (4.8-10.8)
[2016-12-15] MEDS: LEVOTHYROXINE 75 MCG TAB PO SCH (06:00)
[2016-12-15 06:02] LABS: INR 1.2 (0.9-1.1); PARTIAL THROMBOPLASTIN RATIO 1.4; PROTHROMBIN TIME (PATIENT) 12.9 SECONDS (9.0-12.0)
[2016-12-15 06:41] LABS: ALT/SGPT 47 U/L (12-78); AST/SGOT 13 U/L (15-37); BLOOD UREA NITROGEN 8 mg/dl (7-18); BUN/CREATININE RATIO 23.7 (10-20); CALCIUM 8.1 mg/dl (8.5-10.1); CARBON DIOXIDE 34 mmol/L (21-32); CHLORIDE 108 mmol/L (98-107); CREATININE 0.32 mg/dl (0.60-1.40); GLUCOSE 92 mg/dl (70-99); MAGNESIUM 2.1 mg/dl (1.8-2.4); POTASSIUM 3.2 mmol/L (3.5-5.1); SODIUM 146 mmol/L (136-145)
[2016-12-15 07:01] LABS: ALKALINE PHOSPHATASE 112 U/L (45-117)
[2016-12-15] MEDS: ALBUT/IPRATROP 3MG/0.5MG NEB 3 ML VIAL INH SCH ×4 (07:19→20:22)
[2016-12-15] MEDS: POTASSIUM CHLR 20 MEQ / WTR 20 MEQ in PREMIXED WATER 100 ML IV SCH ×2 (08:22→10:03)
[2016-12-15] MEDS: NSS + 20MEQ KCL 1000ML 1,000 ML IV SCH ×3 (08:22→23:40)
[2016-12-15] MEDS: GUAIFENESIN 600 MG TABCR PO SCH (08:23)
[2016-12-15] MEDS: AMIODARONE 200 MG TAB PO SCH (08:23)
[2016-12-15] MEDS: BOOST VANILLA PO SCH ×6 (08:23→16:45)
[2016-12-15] MEDS: EUCERIN CR 120 GM JAR EXT SCH ×2 (08:24→20:42)
[2016-12-15] MEDS ORDERED: METRONIDAZOLE 500 MG TAB PO SCH (09:00)
[2016-12-15] MEDS ORDERED: NURSING VERBAL MED ORDER ONE (09:15)
[2016-12-15] MEDS: METRONIDAZOLE 500MG / NSS IV SCH ×2 (10:03→19:37)
[2016-12-15] MEDS: PANTOprazole INJ 40 MG in SYRINGE 0 ML IV SCH (10:04)
[2016-12-15] MEDS: ENOXAPARIN 60 MG/0.6 ML SYR SQ SCH (10:04)
--- NOTE | 2016-12-15 10:44 | Infectious Disease Progress Nt ---
Progress Note Date of Service December 15, 2016. Subjective Pt evaluation today including: conversation w/ patient, physical exam, chart review, lab review, review of studies, conversation w/ strategy planning consultant (Dr. Bro), review of inpatient medication list Patient continues to be unresponsive to questioning, he does moan and move around some when examining him. WBC count this morning was 14.41. Creatinine this morning was 0.32. He continues on IV Imipenem and Vancomycin. C. Diff toxin was positive, and he was started on IV Flagyl. Additional Comments: ROS is unable to be obtained because of patient state. Medications Current Inpatient Medications Medications (Trade) Dose Ordered Sig/Malcolm Route Start Time Stop Time Status Last Admin Dose Admin Morphine Sulfate (MoRPHine SULFATE INJ) 2 mg Q30M PRN IV 12/13/16 00:15 12/27/16 00:14 Amiodarone HCl (Cordarone Tab) 200 mg BID PO 12/13/16 09:00 01/12/17 08:59 12/13/16 20:49 200 MG Diphenhydramine HCl (Benadryl Cap) 50 mg QPM PO 12/13/16 21:00 01/12/17 20:59 12/13/16 20:47 50 MG Albuterol/ Ipratropium (Duoneb) 3 ml QIDR INH 12/13/16 08:00 01/12/17 07:59 12/15/16 07:19 3 ML Levothyroxine Sodium (Synthroid Tab) 225 mcg DAILYBB PO 12/13/16 06:00 01/12/17 05:59 Enteral Nutritional Formula (Boost) 1 can TIDM PO 12/13/16 07:15 01/12/17 07:59 Multi-Ingredient Ointment (Eucerin Unscented Cr) 1 appln BID EXT 12/13/16 09:00 01/12/17 08:59 12/15/16 08:24 1 APPLN Hydrocortisone (Hydrocortisone 2.5% Crm) 1 appln TID PRN EXT 12/13/16 03:15 01/12/17 03:14 Multi-Ingredient Ointment PRN PRN EXT 12/13/16 03:00 01/12/17 02:59 Pantoprazole Sodium/Syringe (Protonix Inj/ Syringe) 10 ml @ 5 mls/min DAILY@11 IV 12/13/16 11:00 01/12/17 10:59 12/15/16 10:04 5 MLS/MIN Ondansetron HCl (Zofran Inj) 4 mg Q6H PRN IV 12/13/16 00:15 01/12/17 00:14 Guaifenesin (Mucinex Contr Rel Tab) 600 mg BID PO 12/13/16 09:00 01/12/17 08:59 12/13/16 20:47 600 MG Vancomycin HCl (Consult) 1 ea UD PRN N/A 12/13/16 03:15 01/12/17 03:14 Enoxaparin Sodium (Lovenox Inj) 50 mg Q12H SQ 12/13/16 11:00 01/12/17 10:59 12/15/16 10:04 50 MG Prednisone (PredniSONE TAB) 40 mg BID PO 12/13/16 21:00 01/12/17 20:59 12/13/16 20:49 40 MG Lorazepam 0.5 mg 0.5 mg Q6H PRN IV 12/13/16 23:30 01/12/17 23:29 Imipenem/ Cilastatin Sodium/ Dextrose (Primaxin Iv/D5 100ml) 110 ml @ 100 mls/hr Q6H IV 12/14/16 12:00 12/21/16 11:59 12/15/16 06:27 100 MLS/HR Acetaminophen 650 mg 650 mg Q4H PRN UT 12/14/16 08:45 01/13/17 08:44 12/14/16 09:24 650 MG Vancomycin HCl/ Sodium Chloride (Vancomycin Inj/ Nss 250ml) 266 ml @ 125 mls/hr Q8H IV 12/15/16 04:00 12/20/16 03:59 12/15/16 04:30 125 MLS/HR Heparin Sodium (Porcine) 5 ml 5 ml PRN PRN FLUSH 12/15/16 02:00 01/14/17 01:59 Potassium Chloride 20 meq/ Prmx 100 ml @ 50 mls/hr Q2H IV 12/15/16 08:00 12/15/16 11:59 12/15/16 10:03 50 MLS/HR Potassium Chloride/Sodium Chloride (Nss + 20meq KCl 1000ml) 1,000 ml @ 100 mls/hr Q10H IV 12/15/16 08:00 01/14/17 07:59 12/15/16 08:22 100 MLS/HR Vancomycin HCl 125 mg 125 mg QID PO 12/15/16 13:00 12/29/16 12:59 Metronidazole/Prmx (Flagyl / Nss/ Premixed Nss) 100 ml @ 100 mls/hr Q8@02,10,18 IV 12/15/16 10:00 12/29/16 09:59 12/15/16 10:03 100 MLS/HR Raspberry (Raspberry Syrup 5ml Cup) 5 ml QID PO 12/15/16 13:00 12/29/16 12:59 Objective Vital Signs Date Time Temp Pulse Resp B/P Pulse Ox O2 Delivery O2 Flow Rate FiO2 12/15/16 08:00 BiPAP 40 12/15/16 07:20 100 93 40 12/15/16 07:19 100 23 93 BiPAP/CPAP 40 12/15/16 07:16 37.2 102 22 114/72 95 BiPAP 12/15/16 04:00 93 BiPAP 40 12/15/16 03:50 35.6 101 20 116/74 92 BiPAP 12/15/16 00:49 36.5 96 21 114/63 92 BiPAP 40 12/15/16 00:00 92 BiPAP 40 12/14/16 20:00 36.8 87 22 109/75 96 BiPAP 40 12/14/16 20:00 96 BiPAP 40 12/14/16 19:25 90 21 98 BiPAP/CPAP 40 12/14/16 19:25 90 98 40 12/14/16 16:00 37.4 90 20 115/66 97 BiPAP 40 12/14/16 16:00 BiPAP 40 12/14/16 15:39 90 12 97 BiPAP/CPAP 40 12/14/16 11:58 90 12 97 BiPAP/CPAP 40 12/14/16 11:58 90 97 40 12/14/16 11:30 BiPAP 40 12/14/16 11:15 37.1 90 20 103/58 96 BiPAP 40 12/14/16 11:02 90 22 103/58 96 12/14/16 11:00 91 21 96 Physical Exam General Appearance: + pertinent finding (obtunded, unresponsive) Respiratory/Chest: + rhonchi (LLL), + pertinent finding (CPAP in place) Abdomen: normal bowel sounds Extremities: + pertinent finding (left AKA, right leg without edema) Neurologic/Psychiatric: + pertinent finding (unresponsive other than some moaning/moving around slightly with exam) Skin: no rash Laboratory Results Item Value Date Time C.difficile Toxin B Gene (PCR) - Final Complete 12/14/16 2200 Stool Positive for C. difficile toxin B gene Blood Culture Received 12/14/16 0905 Blood Pending Blood Culture Received 12/14/16 09 Blood Pending MRSA DNA Surveillance Screen - Final Complete 12/13/16 0229 Nasal Specimen Negative for MRSA by DNA Probe Blood Culture - Preliminary Resulted 12/12/16 2252 Blood NO GROWTH TO DATE. Blood Culture - Preliminary Resulted 12/12/16 2250 Blood NO GROWTH TO DATE. Last 24 Hours Test 12/14/16 12:00 12/14/16 16:16 12/14/16 19:52 12/15/16 05:41 Sodium Level 146 mmol/L 146 mmol/L Potassium Level 2.7 mmol/L 3.2 mmol/L Chloride Level 105 mmol/L 108 mmol/L Carbon Dioxide Level 33 mmol/L 34 mmol/L Anion Gap 8.0 mmol/L 4.0 mmol/L Blood Urea Nitrogen 6 mg/dl 8 mg/dl Creatinine 0.41 mg/dl 0.32 mg/dl Est Creatinine Clear Calc Drug Dose 113.5 ml/min 131.3 ml/min Estimated GFR () 139.0 > 150.0 Estimated GFR (Non- 120.0 132.8 BUN/Creatinine Ratio 15.0 23.7 Random Glucose 106 mg/dl 92 mg/dl Calcium Level 8.3 mg/dl 8.1 mg/dl Magnesium Level 2.3 mg/dl 2.1 mg/dl Hemoglobin 8.3 g/dL 9.1 g/dL Hematocrit 26.1 % 31.0 % Total Creatine Kinase 20 U/L Creatine Kinase MB 0.8 ng/ml Creatine Kinase MB Ratio 4.0 Troponin I 0.250 ng/ml Vancomycin Level Trough 12.1 mcg/ml White Blood Count 14.41 K/uL Red Blood Count 3.29 M/uL Mean Corpuscular Volume 94.2 fL Mean Corpuscular Hemoglobin 27.7 pg Mean Corpuscular Hemoglobin Concent 29.4 g/dl Platelet Count 117 K/uL Mean Platelet Volume 9.9 fL Neutrophils (%) (Auto) 91.9 % Lymphocytes (%) (Auto) 2.4 % Monocytes (%) (Auto) 4.6 % Eosinophils (%) (Auto) 0.0 % Basophils (%) (Auto) 0.1 % Neutrophils # (Auto) 13.24 K/uL Lymphocytes # (Auto) 0.34 K/uL Monocytes # (Auto) 0.67 K/uL Eosinophils # (Auto) 0.00 K/uL Basophils # (Auto) 0.01 K/uL RDW Standard Deviation 62.6 fL RDW Coefficient of Variation 18.5 % Immature Granulocyte % (Auto) 1.0 % Immature Granulocyte # (Auto) 0.15 K/uL Prothrombin Time 12.9 SECONDS Prothromb Time International Ratio 1.2 Activated Partial Thromboplast Time 37.0 SECONDS Partial Thromboplastin Ratio 1.4 Total Bilirubin 0.6 mg/dl Direct Bilirubin 0.2 mg/dl Aspartate Amino Transf (AST/SGOT) 13 U/L Alanine Aminotransferase (ALT/SGPT) 47 U/L Alkaline Phosphatase 112 U/L Total Protein 5.3 gm/dl Albumin 2.8 gm/dl Assessment and Plan Patient with acute hypoxia, left sided pleural effusion, and sepsis secondary to obstructive/necrotizing pneumonia versus necrotic tumor/infarction from prior PE. He is currently on IV Vancomycin and Imipenem. C. Diff was also positive. Patient initially started on PO Flagyl but patient is currently NPO, therefore will continue IV Flagyl until patient can take PO Vancomycin (if he recovers to that point). We will follow along. PROVIDER ADDENDUM: Patient reviewed with Ms. Belle. Agree with above assessment.
[2016-12-15] MEDS ORDERED: RASPBERRY SYRUP 5 ML UDP PO SCH (13:00)
[2016-12-15] MEDS ORDERED: VANCOMYCIN HCL 125 MG/2.5ML SOLN PO SCH (13:00)
[2016-12-15] MEDS ORDERED: METOPROLOL TARTRATE 1 MG/ML VIAL IV PRN (15:45)
--- NOTE | 2016-12-15 15:53 | Progress Note ---
Subjective Date of Service: December 15, 2016. Subjective Pt evaluation today including: conversation w/ patient, physical exam, lab review, review of studies, conversation w/ peoplesoft consultant, review of inpatient medication list Pain: appears comfortable, denies pain PO Intake: nothing PO for 3 days due to BIPAP Voiding: hopson catheter in place patient on BIPAP since time of admission, unable to wean off, unable to eat just woke up more today, no distress but sleeping all day had a discussion with patient with RN present about code status discussed that he is slowly dying, unsure of ultimate cause ie cancer but would not change prognosis he has pneumonia with respiratory failure, feel this is a terminal event explained that he is essentially on life support with the BIPAP I explained that if he gets worse then he would require intubation, if heart stops he would require compression and possible cardioversion I asked if he would want to peacefully and he nodded his head "yes" RN witnessed conversation as well as aide and [facility] guards discussed with Idania Schneider with palliative care she had had similar discussions with him in the past and he had expressed the desire to peacefully changed code status to level 5 Problem List Medical Problems: (1) Atrial flutter with rapid ventricular response Status: Acute (2) Chest pain Status: Acute (3) COPD with exacerbation Status: Acute (4) Dizzy Status: Acute (5) Hypotension Status: Acute (6) Hypothyroid Status: Acute (7) Hypoxemia Status: Acute (8) Hypoxia Status: Acute (9) Left chest pressure Status: Acute (10) PNA (pneumonia) Status: Acute (11) Pulmonary embolism Status: Acute (12) Rapid atrial fibrillation Status: Acute (13) Sepsis Status: Acute Review of Systems Constitutional: + fatigue, + weakness Respiratory: + shortness of breath cannot complete detailed ROS due to weakness and lethargy Medications Current Inpatient Medications Medications (Trade) Dose Ordered Sig/Malcolm Route Start Time Stop Time Status Last Admin Dose Admin Morphine Sulfate (MoRPHine SULFATE INJ) 2 mg Q30M PRN IV 12/13/16 00:15 12/27/16 00:14 Amiodarone HCl (Cordarone Tab) 200 mg BID PO 12/13/16 09:00 01/12/17 08:59 12/13/16 20:49 200 MG Diphenhydramine HCl (Benadryl Cap) 50 mg QPM PO 12/13/16 21:00 01/12/17 20:59 12/13/16 20:47 50 MG Albuterol/ Ipratropium (Duoneb) 3 ml QIDR INH 12/13/16 08:00 01/12/17 07:59 12/15/16 11:23 3 ML Levothyroxine Sodium (Synthroid Tab) 225 mcg DAILYBB PO 12/13/16 06:00 01/12/17 05:59 Enteral Nutritional Formula (Boost) 1 can TIDM PO 12/13/16 07:15 01/12/17 07:59 Multi-Ingredient Ointment (Eucerin Unscented Cr) 1 appln BID EXT 12/13/16 09:00 01/12/17 08:59 12/15/16 08:24 1 APPLN Hydrocortisone (Hydrocortisone 2.5% Crm) 1 appln TID PRN EXT 12/13/16 03:15 01/12/17 03:14 Multi-Ingredient Ointment PRN PRN EXT 12/13/16 03:00 01/12/17 02:59 Pantoprazole Sodium/Syringe (Protonix Inj/ Syringe) 10 ml @ 5 mls/min DAILY@11 IV 12/13/16 11:00 01/12/17 10:59 12/15/16 10:04 5 MLS/MIN Ondansetron HCl (Zofran Inj) 4 mg Q6H PRN IV 12/13/16 00:15 01/12/17 00:14 Guaifenesin (Mucinex Contr Rel Tab) 600 mg BID PO 12/13/16 09:00 01/12/17 08:59 12/13/16 20:47 600 MG Vancomycin HCl (Consult) 1 ea UD PRN N/A 12/13/16 03:15 01/12/17 03:14 Enoxaparin Sodium (Lovenox Inj) 50 mg Q12H SQ 12/13/16 11:00 01/12/17 10:59 12/15/16 10:04 50 MG Prednisone (PredniSONE TAB) 40 mg BID PO 12/13/16 21:00 01/12/17 20:59 12/13/16 20:49 40 MG Lorazepam 0.5 mg 0.5 mg Q6H PRN IV 12/13/16 23:30 01/12/17 23:29 Imipenem/ Cilastatin Sodium/ Dextrose (Primaxin Iv/D5 100ml) 110 ml @ 100 mls/hr Q6H IV 12/14/16 12:00 12/21/16 11:59 12/15/16 12:44 100 MLS/HR Acetaminophen 650 mg 650 mg Q4H PRN NM 12/14/16 08:45 01/13/17 08:44 12/14/16 09:24 650 MG Vancomycin HCl/ Sodium Chloride (Vancomycin Inj/ Nss 250ml) 266 ml @ 125 mls/hr Q8H IV 12/15/16 04:00 12/20/16 03:59 12/15/16 12:45 125 MLS/HR Heparin Sodium (Porcine) 5 ml 5 ml PRN PRN FLUSH 12/15/16 02:00 01/14/17 01:59 Potassium Chloride/Sodium Chloride (Nss + 20meq KCl 1000ml) 1,000 ml @ 100 mls/hr Q10H IV 12/15/16 08:00 01/14/17 07:59 12/15/16 08:22 100 MLS/HR Vancomycin HCl 125 mg 125 mg QID PO 12/15/16 13:00 12/29/16 12:59 Metronidazole/Prmx (Flagyl / Nss/ Premixed Nss) 100 ml @ 100 mls/hr Q8@02,10,18 IV 12/15/16 10:00 12/29/16 09:59 12/15/16 10:03 100 MLS/HR Raspberry (Raspberry Syrup 5ml Cup) 5 ml QID PO 12/15/16 13:00 12/29/16 12:59 Objective Vital Signs Date Time Temp Pulse Resp B/P Pulse Ox O2 Delivery O2 Flow Rate FiO2 12/15/16 12:00 BiPAP 40 12/15/16 11:51 36.9 102 24 120/74 96 BiPAP 12/15/16 11:24 104 94 40 12/15/16 11:23 104 23 94 BiPAP/CPAP 40 12/15/16 08:00 BiPAP 40 12/15/16 07:20 100 93 40 12/15/16 07:19 100 23 93 BiPAP/CPAP 40 12/15/16 07:16 37.2 102 22 114/72 95 BiPAP 12/15/16 04:00 93 BiPAP 40 12/15/16 03:50 35.6 101 20 116/74 92 BiPAP 12/15/16 00:49 36.5 96 21 114/63 92 BiPAP 40 12/15/16 00:00 92 BiPAP 40 12/14/16 20:00 36.8 87 22 109/75 96 BiPAP 40 12/14/16 20:00 96 BiPAP 40 12/14/16 19:25 90 21 98 BiPAP/CPAP 40 12/14/16 19:25 90 98 40 12/14/16 16:00 37.4 90 20 115/66 97 BiPAP 40 12/14/16 16:00 BiPAP 40 12/14/16 15:39 90 12 97 BiPAP/CPAP 40 Physical Exam General Appearance: no apparent distress, + cachetic Neck: supple, no adenopathy, no JVD, trachea midline Respiratory/Chest: chest non-tender, + decreased breath sounds, + accessory muscle use, + crackles Cardiovascular: no edema, no gallop, no JVD, no murmur, + tachycardia Abdomen: non tender, soft, no organomegaly, + abnormal bowel sounds (hypoactive ) Extremities: normal range of motion, non-tender, no pedal edema, no calf tenderness, pelvis stable Neurologic/Psychiatric: + motor weakness, + depressed affect Skin: normal color, warm/dry, no rash Lymphatic: no adenopathy Laboratory Results Last 24 Hours Test 12/14/16 16:16 12/14/16 19:52 12/15/16 05:41 Hemoglobin 8.3 g/dL 9.1 g/dL Hematocrit 26.1 % 31.0 % Total Creatine Kinase 20 U/L Creatine Kinase MB 0.8 ng/ml Creatine Kinase MB Ratio 4.0 Troponin I 0.250 ng/ml Vancomycin Level Trough 12.1 mcg/ml White Blood Count 14.41 K/uL Red Blood Count 3.29 M/uL Mean Corpuscular Volume 94.2 fL Mean Corpuscular Hemoglobin 27.7 pg Mean Corpuscular Hemoglobin Concent 29.4 g/dl Platelet Count 117 K/uL Mean Platelet Volume 9.9 fL Neutrophils (%) (Auto) 91.9 % Lymphocytes (%) (Auto) 2.4 % Monocytes (%) (Auto) 4.6 % Eosinophils (%) (Auto) 0.0 % Basophils (%) (Auto) 0.1 % Neutrophils # (Auto) 13.24 K/uL Lymphocytes # (Auto) 0.34 K/uL Monocytes # (Auto) 0.67 K/uL Eosinophils # (Auto) 0.00 K/uL Basophils # (Auto) 0.01 K/uL RDW Standard Deviation 62.6 fL RDW Coefficient of Variation 18.5 % Immature Granulocyte % (Auto) 1.0 % Immature Granulocyte # (Auto) 0.15 K/uL Prothrombin Time 12.9 SECONDS Prothromb Time International Ratio 1.2 Activated Partial Thromboplast Time 37.0 SECONDS Partial Thromboplastin Ratio 1.4 Sodium Level 146 mmol/L Potassium Level 3.2 mmol/L Chloride Level 108 mmol/L Carbon Dioxide Level 34 mmol/L Anion Gap 4.0 mmol/L Blood Urea Nitrogen 8 mg/dl Creatinine 0.32 mg/dl Est Creatinine Clear Calc Drug Dose 131.3 ml/min Estimated GFR () > 150.0 Estimated GFR (Non- 132.8 BUN/Creatinine Ratio 23.7 Random Glucose 92 mg/dl Calcium Level 8.1 mg/dl Magnesium Level 2.1 mg/dl Total Bilirubin 0.6 mg/dl Direct Bilirubin 0.2 mg/dl Aspartate Amino Transf (AST/SGOT) 13 U/L Alanine Aminotransferase (ALT/SGPT) 47 U/L Alkaline Phosphatase 112 U/L Total Protein 5.3 gm/dl Albumin 2.8 gm/dl Assessment and Plan This is a 71 yo M who was discharged (12/12) however became hypoxic once [facility] the [facility] with O2 sats back into the 60s. He was placed on a nonrebreather at 15L O2 and sats improved to 90-92%. His PMHx includes Atrial fib and flutter s/p IVC placement, COPD, necrotic pneumonia, hypoxic respiratory failure, Hx of PE, PVD, Hypothyroidism, decubitus ulcer of the left ischium and sacrum, Hx of left AKA, anal carcinoma in 2004 who presented in septic shock secondary to obstructive pneumonia. Acute Respiratory Distress Acute hypoxia respiratory failure Sepsis secondary to obstructive/necrotizing pneumonia remains dependent on BIPAP today with saturations in the 90's discussed poor prognosis and the fact that he remains on life support currently with PPV afebrile since starting Imipenem, will continue current antibiotics continue nebulizers Prednisone stopped patient would not want intubated if breathing deteriorates, would change to complete comfort if more hypoxic Left sided pleural effusion no further accumulation this admission has been tested for malignancy with no positive results keep PleurX in place, drain if needed Anemia stable, no signs of bleeding, Hb up to 9.1 Hypokalemia improving, up to 3.2, give 40mEq IV this AM and placed 20mEq IV in maintenance fluid Right Lower extremity Pain, DVT stop Lovenox BID with change to level 5 and likely clinical deterioration in next few days Acute on Chronic COPD stop Prednisone, no wheezing on exam, can continue nebulizers Acute Transaminitis secondary to shock liver LFT normal now EDDIE Resolved with aggressive fluid resuscitation, continue maintenance fluid Atrial Fibrillation unable to take Amiodarone PO, can use Lopressor IV PRN for HR > 120 Hypothyroidism: cannot take PO, no need for IV Synthroid Sacral decubitus ulceration frequent turns, will back off due to plans for comfort Code Status: see above for discussion with patient, change to level 5 as he wishes to pass away comfortably keep on BIPAP overnight, if unable to wean off BIPAP then transfer to medical in the morning and make comfort care
[2016-12-15] MEDS ORDERED: VANCOMYCIN TROUGH ONE (19:30)
--- NOTE | 2016-12-15 20:41 | Pharmacy Progress Note ---
Pharmacy Antibiotic Prog Note Date of Service December 15, 2016. Subjective The patient is currently receiving vancomycin 800 mg iv q 8 hrs The patient is currently on day # 4 of IV therapy. Objective Height (Feet): 5 Height (Inches): 5.00 Weight (Kilograms): 42.600 Levels: Item Value Date Time Vancomycin Level Trough 19.3 mcg/ml 12/15/161930 Vancomycin Level Trough 12.1 mcg/ml 12/14/161951 Lab Results (24hrs): Test 12/15/16 05:41 12/15/16 16:14 12/15/16 19:31 12/15/16 20:06 White Blood Count 14.41 K/uL (4.8-10.8) Red Blood Count 3.29 M/uL (4.7-6.1) Hemoglobin 9.1 g/dL (14.0-18.0) Hematocrit 31.0 % (42-52) Mean Corpuscular Volume 94.2 fL (80-100) Mean Corpuscular Hemoglobin 27.7 pg (25-34) Mean Corpuscular Hemoglobin Concent 29.4 g/dl (32-36) Platelet Count 117 K/uL (130-400) Mean Platelet Volume 9.9 fL (7.4-10.4) Neutrophils (%) (Auto) 91.9 % Lymphocytes (%) (Auto) 2.4 % Monocytes (%) (Auto) 4.6 % Eosinophils (%) (Auto) 0.0 % Basophils (%) (Auto) 0.1 % Neutrophils # (Auto) 13.24 K/uL (1.4-6.5) Lymphocytes # (Auto) 0.34 K/uL (1.2-3.4) Monocytes # (Auto) 0.67 K/uL (0.11-0.59) Eosinophils # (Auto) 0.00 K/uL (0-0.5) Basophils # (Auto) 0.01 K/uL (0-0.2) RDW Standard Deviation 62.6 fL (36.4-46.3) RDW Coefficient of Variation 18.5 % (11.5-14.5) Immature Granulocyte % (Auto) 1.0 % Immature Granulocyte # (Auto) 0.15 K/uL (0.00-0.02) Prothrombin Time 12.9 SECONDS (9.0-12.0) Prothromb Time International Ratio 1.2 (0.9-1.1) Activated Partial Thromboplast Time 37.0 SECONDS (21.0-31.0) Partial Thromboplastin Ratio 1.4 Sodium Level 146 mmol/L (136-145) Potassium Level 3.2 mmol/L (3.5-5.1) Chloride Level 108 mmol/L (98-107) Carbon Dioxide Level 34 mmol/L (21-32) Anion Gap 4.0 mmol/L (3-11) Blood Urea Nitrogen 8 mg/dl (7-18) Creatinine 0.32 mg/dl (0.60-1.40) Est Creatinine Clear Calc Drug Dose 131.3 ml/min Estimated GFR () > 150.0 Estimated GFR (Non- 132.8 BUN/Creatinine Ratio 23.7 (10-20) Random Glucose 92 mg/dl (70-99) Calcium Level 8.1 mg/dl (8.5-10.1) Magnesium Level 2.1 mg/dl (1.8-2.4) Total Bilirubin 0.6 mg/dl (0.2-1) Direct Bilirubin 0.2 mg/dl (0-0.2) Aspartate Amino Transf (AST/SGOT) 13 U/L (15-37) Alanine Aminotransferase (ALT/SGPT) 47 U/L (12-78) Alkaline Phosphatase 112 U/L (45-117) Total Protein 5.3 gm/dl (6.4-8.2) Albumin 2.8 gm/dl (3.4-5.0) Bedside Glucose 86 mg/dl (70-99) 95 mg/dl (70-99) Vancomycin Level Trough 19.3 mcg/ml (SEE COMMENT) Assessment & Plan Patient on vancomycin and primaxin for an obstructive/necrotizing pneumonia vs. necrotic tumor. ID is following the patient. Vancomycin: * Trough level this evening was therapeutic at ~19 mcg/ml (goal 15-20 mcg/ml for PNA) * Will continue with current regimen for now, Scr remains stable (CrCl >100 ml/ min) * Will plan to obtain trough in next 3-5 days or sooner if renal function changes Pharmacy will continue to follow and will adjust dose/frequency as necessary. Thank you
[2016-12-16] MEDS: METRONIDAZOLE 500MG / NSS IV SCH ×2 (01:59→09:33)
[2016-12-16 04:01] VITALS: BP 116/70; PULSE 112; TEMP 36.8; O2SAT 98
[2016-12-16] MEDS: VANCOMYCIN INJ 800 MG in SODIUM CHLORIDE 0.9% 250ML 250 ML IV SCH ×2 (04:11→12:00)
[2016-12-16 06:15] LABS: HEMATOCRIT 33.1 % (42-52); MEAN CELL VOLUME 94.6 fL (80-100); MEAN CORPUSCULAR HGB CONC 29.6 g/dl (32-36); MEAN PLATELET VOLUME 10.2 fL (7.4-10.4); PLATELET COUNT 118 K/uL (130-400); WHITE BLOOD COUNT 15.53 K/uL (4.8-10.8)
[2016-12-16] MEDS: IMIPENEM/CILASTATIN IV 500 MG in DEXTROSE 5% 100ML 100 ML IV SCH ×2 (06:15→12:00)
[2016-12-16 07:05] VITALS: PULSE 112; O2SAT 97
[2016-12-16] MEDS: ALBUT/IPRATROP 3MG/0.5MG NEB 3 ML VIAL INH SCH ×2 (07:05→11:16)
[2016-12-16 07:17] VITALS: BP 97/70; PULSE 111; TEMP 37.4; O2SAT 100
[2016-12-16] MEDS: BOOST VANILLA PO SCH ×2 (07:47)
[2016-12-16] MEDS: EUCERIN CR 120 GM JAR EXT SCH (07:53)
[2016-12-16] MEDS ORDERED: MoRPHine SULFATE 2 MG/ML CARP IV PRN (08:45)
[2016-12-16] MEDS ORDERED: RXNS10 PO (09:33)
[2016-12-16] MEDS ORDERED: LORA-741 PO (09:33)
[2016-12-16] MEDS ORDERED: SCOP1.5D2 TD (09:33)
--- NOTE | 2016-12-16 09:41 | Discharge Instructions ---
Discharge Instructions Date of Service December 16, 2016. Admission Reason for Admission: Acute Respiratory Failure With Hypoxia, [place] Discharge Discharge Diagnosis / Problem: End stage respiratory failure, necrotizing pneumonia, suspected malignancy Discharge Goals Goal(s): Decrease discomfort, Specific goals (comfort care, hospice) Activity Recommendations Activity Limitations: per Instructions/Follow-up section Activity: bed bound, rest . Instructions / Follow-Up Instructions / Follow-Up Medications: - MORPHINE: use as needed for any pain or shortness of breath - ATIVAN: use as needed for agitation/anxiety with working to breath - SCOPOLAMINE: apply q72 hours to decrease secretions Patient is returning to [facility] for hospice care, DO NOT RETURN TO THE HOSPITAL. Patient has elected to be a DNR, does not want to be on BIPAP again and he requires this to keep saturations in the 90's, essentially he has end stage respiratory failure. He will be transported on BIPAP to keep saturations stable just to get him back to [facility], once in the hospice room, take off BIPAP and DO NOT PLACE BACK ON. Current Hospital Diet Patient's current hospital diet: Clear Liquid Diet Discharge Diet Recommended Diet: Clear Liquid Diet Pending Studies Studies pending at discharge: no Laboratory Results Hemoglobin A1c Test 10/22/16 05:38 Range/Units Estimated Average Glucose 128 mg/dl Hemoglobin A1c 6.1 H 4.5-5.6 % Medical Emergencies . Who to Call and When: Medical Emergencies: If at any time you feel your situation is an emergency, please call 911 immediately. . Non-Emergent Contact Non-Emergency issues call your: Primary Care Provider Call Non-Emergent contact if: you have any medication questions . . "Provider Documentation" section prepared by Jonathan Bro. . VTE Core Measure Inpt VTE Proph given/why not?: SCD's (of right lower extremity only.) [place] Drug Monitoring Program Search Results: no issues identified
[2016-12-16 09:57] VITALS: BP 97/70; PULSE 111; TEMP 37.4; O2SAT 100
--- NOTE | 2016-12-16 10:14 | Palliative Care Progress Note ---
Palliative Care Progress Note Date of Service December 16, 2016. Subjective Pt evaluation today including: conversation w/ patient, physical exam, chart review, conversation w/ contact center consultant (Dr. Bro) Pain: 0/10 PO Intake: tolerating sips and drinks Voiding: hopson catheter in place -Patient is more awake, oriented x4 today. Taking drinks and tolerating well. -Denies any pain, has some SOB with any movement. -Is agreeable to going back to the senior living on hospice care. His goal is to be comfortable. -Dr. Bro in agreement. See plan below. Review of Systems Respiratory: + cough, + dyspnea on exertion, No wheezing Cardiac: No chest pain, No edema Abdomen: No nausea, No pain, No vomiting Objective Vital Signs Date Time Temp Pulse Resp B/P Pulse Ox O2 Delivery O2 Flow Rate FiO2 12/16/16 09:57 37.4 111 22 100 BiPAP 12/16/16 08:00 BiPAP 50 12/16/16 07:17 37.4 111 22 97/70 100 BiPAP 12/16/16 07:05 112 26 97 BiPAP/CPAP 40 12/16/16 07:05 112 97 40 12/16/16 04:01 36.8 112 22 116/70 98 BiPAP 50 12/16/16 04:00 BiPAP 50 12/16/16 00:01 BiPAP 50 12/15/16 23:42 36.6 115 24 114/68 96 BiPAP 50 12/15/16 20:17 100 Mask 15.0 40 12/15/16 19:45 36.6 108 20 103/66 100 Mask 12/15/16 19:30 79 28 90 BiPAP/CPAP 40 12/15/16 19:30 79 90 40 12/15/16 16:14 98 BiPAP 15.0 40 12/15/16 16:06 100 94 40 12/15/16 16:03 100 22 94 BiPAP/CPAP 40 12/15/16 15:40 36.9 102 18 115/67 95 12/15/16 12:00 BiPAP 40 12/15/16 11:51 36.9 102 24 120/74 96 BiPAP 12/15/16 11:24 104 94 40 12/15/16 11:23 104 23 94 BiPAP/CPAP 40 Physical Exam General Appearance: + cachetic, + thin ENT: hearing grossly normal Neck: supple, no JVD Respiratory/Chest: no respiratory distress, no accessory muscle use, + decreased breath sounds, + rhonchi (very coarse throughout), + pertinent finding (Left Pleur-x catheter) Cardiovascular: regular rate, rhythm, no edema, + normal peripheral pulses Abdomen: normal bowel sounds, non tender, soft Neurologic/Psychiatric: alert, oriented x 3 Skin: + pallor Assessment and Plan Problem list: Lethargy/obtundation Respiratory distress and failure- on bipap at this time Sepsis 2/2 obstructive/necrotizing pneumonia- blood cultures pending Left pleural effusion- chest tube present Possible/probably lung ca Anemia COPD exacerbation Acute transaminitis EDDIE Electrolyte imbalances Ileus Sacral decubitus ulceration Goals of care (Z51.5) Palliative care recommendations: discussed with patient and Dr. Bro -DNR/DNI per previous discussions -Goal is for comfort measures only -Plan is to go back to [facility] on hospice -Dr. Bro writing orders for Roxanol PRN pain or SOB -Bipap for transfer, but then continue with nasal cannula. Patient has expressed that he does not want to be placed back on bipap. -Pleur-x catheter to stay capped and not drained per Dr. Bro. Was already drained today for 350ml. Please contact me with any further palliative care needs. Palliative Performance Scale: 20 % Discharge planning: other (Long-Term on hospice care/comfort measures only)
--- NOTE | 2016-12-16 11:07 | Discharge Summary ---
Discharge Summary Date of Service December 16, 2016. Discharge Summary Admission Date: December 13, 2016 at 00:20 Discharge Date: December 16, 2016 Discharge Disposition: Home ([facility]) Principal Diagnosis: Acute Respiratory Distress, necrotizing pneumonia, Hypoxic respiratory dist Problems/Secondary Diagnoses: Left sided pleural effusion, anemia, hypokalemia, acute on chronic COPD, acute transaminitis secondary to shock liver, CKI, atrial fibrillation, hypothyroidism , sacral decubitus ulceration. Immunizations: Have You Had Influenza Vaccine: Yes History of Tetanus Vaccine?: Yes History of Pneumococcal: Yes History of Hepatitis B Vaccine: Yes Procedures: Chest 1 view portable 12/12/16 IMPRESSION: Progression of extensive bilateral airspace opacities which favors pneumonia superimposed upon emphysema. Pulmonary edema or ARDS could appear similar. Chest 1 view portable 12/14/16 IMPRESSION: Persistent bilateral pulmonary airspace opacities. Consultations: Palliative Infectious disease Medication Reconciliation New Medications: Lorazepam (Ativan) 0.5 Mg Tab 0.5 MG PO Q6H PRN for Agitation, #30 TAB Morphine Sulfate (Morphine Sulfate) 10 Mg/0.5 Ml Soln 0.25 ML PO Q2H PRN for Shortness of Breath, #50 ML 0 Refills Scopolamine (Transderm-Scop) 1 Mg/3 Days Dis 3 MG TD Q72H, #3 PATCH 0 Refills Continued Medications: Acetaminophen (Tylenol) 325 Mg Tab 325 MG PO TID PRN for Pain, TAB Ondansetron Hcl (Zofran) 8 Mg Tab 8 MG PO TID PRN for Nausea, TAB Discontinued Medications: Acetaminophen/Codeine (Tylenol W/Codeine #3) 300 Mg/30 Mg Tab 1 TAB PO Q4H WHILE AWAKE PRN for Pain, TAB Aclidinium [place] (Tudorza Pressair) 400 Mcg/Act Aer 1 PUFF INH BID Albuterol Hfa (Ventolin Hfa) 200 Puffs/47555 Mcg Aers 2 PUFFS INH QID PRN for SOB/Wheezing, INHALER Amiodarone Hcl (Cordarone) 200 Mg Tab 200 MG PO BID, TAB Amoxicillin & Pot Clavulanate (Amoxicillin/Clavulanate P) 1 Tab Tab 875 MG PO BIDM for 6 Days, #12 TAB Ciclesonide (Alvesco) 160 Mcg/Act Aer 1 PUFF PO BID Control Gel Formula Dressing (Duoderm Cgf) 1 Mis Mis 1 PATCH TD [id number] TAKE/PERFORM ONCE DAILY. CHANGE EVERY 3 DAYS AND NEEDED Diphenhydramine Hcl (Benadryl) 25 Mg Cap 50 MG PO QPM, CAP Docusate Sodium (Gnp Stool Softener) 250 Mg Cap 250 MG PO DAILY PRN for Constipation Emollient (Lubriskin) 1 Lot Lot 1 APPLN TOP BID TO RIGHT LOW EXTREMITY Ferrous Fumarate (Hemocyte) 324 Mg Tab 324 MG PO BID Guaifenesin (Guaifenesin) 400 Mg Tab 800 MG PO TID Hydrocortisone (Topical) (Hydrocortisone) 2.5 % Lot 1 APPLN TOP TID PRN for RASH Ipratropium-Albuterol (Duoneb) 3 Ml Nebu 1 TREATMENT INH QID, INHA Levothyroxine Sodium (Synthroid) 75 Mcg Tab 225 MCG PO DAILY, TAB 3 TABLETS DAILY Loperamide Hcl (Imodium) 2 Mg Cap 2 MG PO BID, CAP Metoclopramide Hcl (Reglan) 5 Mg Tab 5 MG PO AC, TAB Metoprolol Tartrate (Lopressor) 25 Mg Tab 12.5 MG PO BID, TAB Midodrine Hcl (Midodrine Hcl) 10 Mg Tab 5 MG PO TID Nortriptyline (Pamelor) 10 Mg Cap 10 MG PO HS CRUSH Nutritional Supplements (Nutritional Drink) 1 Liq Liq 1 CAN PO TIDM Omeprazole (Omeprazole) 20 Mg Tab 40 MG PO DAILY, TAB Prednisone Tab (Prednisone) 10 Mg Tab 10 MG PO UD, TAB Zinc Oxide (Topical) (Desitin Rapid Relief) 13 % Cre 1 APPLN TOP DIRECTED APPLY TO SACRAL AREA NEEDED FOR INCONTINENCE Discharge Exam The patient was seen and examined this morning. Patient reports feeling okay this morning. He was requesting coffee. He has no other acute complaints which have changed. He still admits to feeling short of breath, is tired and fatigued. ROS: 10 point ROS was obtained and otherwise negative. Physical Exam General Appearance: NAD, + cachetic Neck: no JVD, trachea midline Respiratory/Chest: on Bipap, L chest wall pleurex catheter in place, + decreased breath sounds throughout, + accessory muscle use, + crackles Cardiovascular: no edema, no gallop, no JVD, no murmur, + tachycardia Abdomen: non tender, soft, no organomegaly, + abnormal bowel sounds (hypoactive ) Extremities: + Left AKA, non-tender, no pedal edema, no calf tenderness, pelvis stable Neurologic/Psychiatric: + motor weakness, + depressed affect Skin: normal color, warm/dry, no rash Lymphatic: no adenopathy Hospital Course H&P per Dr. Tyler MD. History of Present Illness Source: patient, hospital records The patient is a 71-year-old resident of [facility], who had just been discharged from the ICU earlier in the day, on 6 L of nasal cannula oxygen, who reportedly became significantly hypoxic at the custodial upon arrival, and was immediately returned to the hospital emergency department for assessment. The patient had been discharged earlier in the day, with a potential idea of hospice while at the custodial, however, the patient had decided against hospice in the interim. While in the hospital at last visit, he did have a chest tube placed, which was subsequently removed, and then sent with a Pleurx catheter to the custodial. When EMS arrived at the custodial, he reportedly had an oxygen saturation in the 60s on 5 L nasal cannula, at which time they placed him on a 15 L nonrebreather with subsequent O2 saturation 91-92%. Physical Exam Vital Signs Date Time Temp Pulse Resp B/P Pulse Ox O2 Delivery O2 Flow Rate FiO2 12/13/16 02:35 36.3 102 20 97/67 98 BiPAP 60 12/13/16 01:53 98 92 60 12/13/16 01:40 100 25 91/62 92 12/13/16 01:00 100 25 91/62 92 BiPAP 60 12/13/16 00:44 95/55 BiPAP 60 12/13/16 00:32 105 21 96/54 93 BiPAP 60 12/13/16 00:30 96/61 BiPAP 60 12/13/16 00:00 102 29 93/62 94 BiPAP 60 12/12/16 23:47 103 25 95/55 93 BiPAP 60 12/12/16 23:22 103 94 12/12/16 23:21 103 24 94 BiPAP/CPAP 60 12/12/16 22:50 102 12/12/16 22:39 92 Non-Rebreather 15.0 12/12/16 22:39 36.7 103 22 122/71 92 Non-Rebreather 15.0 12/12/16 22:39 92 Non-Rebreather General Appearance: + moderate distress, + thin, + pertinent finding ( cachectic appearing. Not able to respond to questioning due to altered mental status and shortness of breath.) Head: normocephalic, atraumatic Eyes: normal inspection, PERRL, EOMI, sclerae normal Neck: supple, no adenopathy, thyroid normal, no JVD, no carotid bruits, trachea midline Respiratory/Chest: chest non-tender, + respiratory distress (moderately severe) , + rhonchi, + wheezing, + pertinent finding (moderate accessory muscle use) Cardiovascular: no edema, no gallop, no JVD, no murmur, normal peripheral pulses, + tachycardia Abdomen/GI: normal bowel sounds, non tender, soft, no organomegaly, no pulsatile mass Back: normal inspection, no CVA tenderness, no muscle spasm, normal range of motion Extremities/Musculoskelatal: no calf tenderness, normal capillary refill, no pedal edema, normal range of motion, non-tender, + pertinent finding (left AKA with sutures clean, dry and intact.) Neurologic/Psych: 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 He was placed on a nonrebreather at 15L O2 and sats improved to 90-92%. The patient was placed on BiPAP and was not able to be titrated off of this. Chest x-rays were repeated and showed no changes essentially from the last admission. Pleurx cath which was placed during last admission was drained this morning for 350 mLs for shortness of breath, this is a recurrent effusion likely secondary to malignancy although a definitive dx of malignancy was not made. Cytology results were negative for any malignant cells 3. Palliative medicine was consulted the patient was made DO NOT RESUSCITATE and placed on comfort care measures. The patient was started on roxinol for air hunger and pain relief. Plan for transfer back to [facility] on hospice. Pt will stay on Bipap for transfer, but then continue with nasal cannula. Patient has expressed that he does not want to be placed back on bipap. -Pleur-x catheter to stay capped and not drained per Dr. Bro. His PMHx includes Atrial fib and flutter s/p IVC placement, COPD, necrotic pneumonia, hypoxic respiratory failure, Hx of PE, PVD, Hypothyroidism, decubitus ulcer of the left ischium and sacrum, Hx of left AKA, anal carcinoma in 2004 who presented in septic shock secondary to obstructive pneumonia. Acute Respiratory Distress Acute hypoxia respiratory failure Sepsis secondary to obstructive/necrotizing pneumonia - The patient has been unable to tolerate off of BiPAP, retaining CO2, - CXR 12/14 reviewed: Showing a catheter fragment in the left subclavian vein, extensive bilateral pulmonary airspace opacities. There is a left basilar chest tube present. There is no significant pleural fluid. - Was placed back on IV abx on admission- vanco, zosyn, and levaquin (this is technically day 6 of IV abx as he never started outpatient regimen with Augmentin as written on discharge).Levaquin stopped 12/13. Will stop zosyn today and add imipenem and consult ID. - antibiotics were discontinued for comfort measures. - BCx from 12/10 were negative, BCx from 12/12 and 12/14 also negative. - Pleural fluid studies from 12/11 and 12/12 are negative. Left sided pleural effusion - Pleurx catheter placed by Dr. Jaramillo on 12/09 - plans for all pleural fluid to be sent to lab for cytology as there is concern for malignant effusion with hx of anal carcinoma in 2004- appreciate thoracic med recs - cytology reports x 3 were negative for malignant cells. - Fluid studies including fungal, gram and AFB are negative from 12/09 - Do not drain once discharged. C. diff - Culture postive but decided against antibiotics as the patient is now on comfort measures. Anemia - Hgb=9.8 at time of discharge although he appears to be intravascularly dry so likely d/t hemoconcentration. Hypokalemia - K+ was orally and intravenously during admission, was 3.2 on 12/16 Right Lower extremity Pain - U/S on 12/10 showed superficial popliteal DVT so pt was placed on Lovenox 50 mg BID per dosing per weight -continue - Anti-Xa therapeutic at 1.03 Acute on Chronic COPD - stop Solu-Medrol now, Continue prednisone 40 mg BID and plan for long taper of each dose x at least 3 days, this will take approximately 3 weeks to complete - DuoNebs QID an Q2H prn Acute Transaminitis secondary to shock liver - Trending downward and improving - Hepatits panel was negative EDDIE - Resolved with aggressive fluid resuscitation with Cr.= 0.30 Elevated Troponin - Secondary to demand ischemia associated with septic shock- remained stable during admission - Resolved Atrial Fibrillation - Cont amiodarone 200 mcg PO BID - d/c as the patient was placed on comfort measures Hypothyroidism: Cont levothyroxine 225 mcg daily Ileus: - CT abd/pelvis showing dilated bowel loops likely determinate of ileus, resolving now, allowed a clear liquid diet - Pt with c/o LUQ pain, monitor with abdominal checks, abd nondistended and soft today Sacral decubitus ulceration - Turn and repo Q2H - Wound care consultation Code Status: DNR, comfort measures Total Time Spent: Greater than 30 minutes This includes examination of the patient, discharge planning, medication reconciliation, and communication with other providers. Discharge Instructions Please refer to the electronic Patient Visit Report (Discharge Instructions) for additional information.
[2016-12-16 11:16] VITALS: PULSE 112; O2SAT 94
[2016-12-16] MEDS ORDERED: BOOST BREEZE NUTRITION DRINK 1 BOX PO SCH (11:30)
== END 2016-12-16 12:38 | DRG 871 ==
LOC: CANRESERV → ENRESERVDT → ENRESERVTM → EDBD 22:22 → C.EDB 22:24 → C.MSICU 12-13 00:20 → C.2E 12-14 18:51 → EDBEDREQ 12-16 08:52 → CANBEDREQ 12-16 09:42
PROVIDERS: ADMIT Hospitalist; ATTEND Internal Medicine
DX: A41.9 Sepsis, unspecified organism (principal); J96.01 Acute respiratory failure with hypoxia; J85.0 Gangrene and necrosis of lung; K72.00 Acute and subacute hepatic failure without coma; I48.92 Unspecified atrial flutter; J90 Pleural effusion, not elsewhere classified; J44.1 Chronic obstructive pulmonary disease with (acute) exacerbation; N17.9 Acute kidney failure, unspecified; I82.431 Acute embolism and thrombosis of right popliteal vein; K56.7 Ileus, unspecified; Z51.5 Encounter for palliative care; K21.9 Gastro-esophageal reflux disease without esophagitis; E03.9 Hypothyroidism, unspecified; I48.91 Unspecified atrial fibrillation; I95.9 Hypotension, unspecified; Z79.52 Long term (current) use of systemic steroids; Z79.899 Other long term (current) drug therapy; Z87.891 Personal history of nicotine dependence; Z89.612 Acquired absence of left leg above knee; D64.9 Anemia, unspecified; E87.6 Hypokalemia; E83.39 Other disorders of phosphorus metabolism; L89.152 Pressure ulcer of sacral region, stage 2